=== PATIENT | female | born 1980 | race Caucasian/White ===

== ENCOUNTER → 2019-10-24 13:58 | Outpatient (BNVA) | payer MEDICAID, SELFPAY | PROVIDERS: Family Provider Family Medicine; PCP Family Medicine; Visit Provider Family Medicine | DX: E10.9 Type 1 diabetes mellitus without complications (principal); I10 Essential (primary) hypertension; K21.9 Gastro-esophageal reflux disease without esophagitis; I49.9 Cardiac arrhythmia, unspecified; J30.2 Other seasonal allergic rhinitis; R11.0 Nausea | CPT/HCPCS: 80048; 83036 ==

== ENCOUNTER → 2020-03-18 11:00 | Outpatient (BNVA) | payer MEDICAID, SELFPAY | PROVIDERS: Family Provider Family Medicine; PCP Family Medicine; Visit Provider Nurse Practitioner Family | DX: E11.65 Type 2 diabetes mellitus with hyperglycemia (principal); Z72.0 Tobacco use; H60.392 Other infective otitis externa, left ear; L50.9 Urticaria, unspecified | CPT/HCPCS: 80048; 80061; 83036 ==

== ENCOUNTER 2021-03-23 07:24 | Inpatient (IN) | payer MEDICAID, SELFPAY ==
[2021-03-23] VITALS (44 sets, daily range): BP systolic 100–168; BP diastolic 49–77; PULSE 66–97; RESP 9–41; TEMP 37.1–37.4; O2SAT 65–100; BMI 45.9
--- NOTE | 2021-03-23 07:33 | ECG_ITS ---
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 Measurements Intervals [place] Rate: 96 P: 43 AK: 153 QRS: -4 QRSD: 89 T: 20 QT: 348 QTc: 440 Interpretive Statements SINUS RHYTHM POSSIBLE LEFT ATRIAL ENLARGEMENT [-0.1mV P WAVE IN V1/V2] POSSIBLE RIGHT VENTRICULAR CONDUCTION DELAY [RSR (QR) IN V1/V2] No previous ECG available for comparison Electronically Signed On 03-23-2021 22:10:11 CDT by Lashonda Schumacher M.D. [id number]
--- NOTE | 2021-03-23 07:33 | XR_ITS ---
WS: [id number] XR chest 1V portable [id number] REASON FOR EXAM: Cough FINDINGS: The heart and the mediastinum are within normal limits. Diffuse interstitial and alveolar infiltrative changes in the central and lower lung simmons, more sev ere on the left. No pleural effusion identified. The bony thorax is intact. XR/XR chest 1V portable [id number] IMPRESSION: No prior chest films. Likely pneumonitis unknown chronicity.
--- NOTE | 2021-03-23 07:34 | W.ED.SOB ---
HPI - SOB/Dyspnea General: Chief Complaint: Shortness of Breath/Dyspnea Stated Complaint: cough, N/V, weak Time Seen by Provider: 03/23/21 07:28 History of Present Illness: HPI Narrative: This patient is a 40-year-old female who presents to the emergency department with acute shortness of breath. Patient also describes cough and fever for the past couple days. Patient does have a history of asthma. Patient states she has not had the Covid vaccine. Patient does not know if she has had any exposure. Patient states she does take her inhalers at home and does not wear oxygen at home. O2 sat on room air upon arrival was in the mid 60s. Patient placed on a nonrebreather. Pulse ox 87%. Will do medical evaluation treat as needed MD elicited complaint: shortness of breath and asthma attack Pertinent past history: asthma Onset (ago): minute(s) Timing: constant Severity: similar to previous episodes Exacerbating factors: nothing Relieving factors: nothing Associated symptoms: Deny abdominal pain, chest pain, extremity pain, fever(s), lightheadedness, nausea, palpitations or vomiting Review of Systems General: Reports: 10 or more systems reviewed and unremarkable except in HPI and below Const: Denies: fever(s), chills, body aches or fatigue Eyes: Denies: change in vision or blurry vision ENMT: Denies: throat pain, hoarseness or mouth pain Card: Denies: chest pain, palpitations, irregular heart rhythm, edema, swelling of feet/ankles or lightheadedness Resp: Reports: dyspnea and non-productive cough; Denies: productive cough, wheezing or pain on inspiration GI: Denies: abdominal pain, nausea or vomiting : Denies: flank pain, difficulty voiding, dysuria, urinary frequency, urinary urgency or urinary hesitancy Musc: Denies: neck pain, back pain, extremity pain, extremity swelling, joint pain, joint swelling, joint redness, joint warmth or limited range of motion Skin/Breast: Denies: rash, pruritus, erythema or skin tenderness Neuro: Denies: headache(s), numbness in extremities or weakness in extremities Psych: Denies: anxiety or depression PFS ED PFSH: Medical History (Updated 03/23/21 @ 10:21 by Toribio Arizmendi MD) Asthma Benign atrial arrhythmia Chronic nausea Related to gastroparesis and diabetes. Chronic pain syndrome Controlled diabetes mellitus type 1 without complications Essential (primary) hypertension Fibromyalgia GERD (gastroesophageal reflux disease) Seasonal allergies Small fiber neuropathy Spinal cord stimulator status PAIN PUMP Surgical History S/P appendectomy S/P section S/P tubal ligation Family History Other Diabetes Hypertension Social History Smoking and tobacco status: never smoked Alcohol intake: never Current gender identity: Female Physical Exam Const: COMMON NORMALS: no acute distress, average body habitus, patient oriented x3, no limitations, healthy appearing, alert and well nourished HENMT: COMMON NORMALS: normocephalic, atraumatic, hearing grossly normal bilaterally, external ears normal, EAC's normal, TM's normal bilaterally, Normal external nose present, Normal nasal mucous membranes and turbinates present, moist oral mucous membranes, oropharynx normal, dentition normal and gingiva normal HEAD & SCALP: normocephalic and atraumatic NOSE: Normal external nose present and Normal nasal mucous membranes and turbinates present EXTERNAL EAR: Yes external ears normal EXTERNAL AUDITORY CANAL: EAC's normal TYMPANIC MEMBRANE: TM's normal bilaterally Neck/C-Spine: COMMON NORMALS: full ROM, no lymphadenopathy, supple, no meningeal signs, no JVD, Thyroid normal and No carotid bruits THYROID: Thyroid normal Chest: COMMONS NORMALS: normal inspection of the chest, normal palpation of entire chest wall, normal inspection of the breasts and normal palpation of the breasts Breast/axilla inspection: Yes normal inspection of the breasts BREAST/AXILLA PALPATION: Yes normal palpation of the breasts Resp: COMMON NORMALS: clear to auscultation bilaterally and percussion normal EFFORT & INSPECTION: Yes tachypneic, Yes respiratory distress and Yes uses accessory muscles AUSCULTATION: clear to auscultation bilaterally PERCUSSION: percussion normal Cardio: COMMON NORMALS: no JVD, regular rate, regular rhythm, S1 normal heart sound present, S2 normal heart sound present, No gallops present (Cardio), No clicks present (Cardio), No murmurs present (Cardio), No rub (Cardio) and Peripheral pulses 2+ throughout RATE: regular rate RHYTHM: regular rhythm HEART SOUNDS: S1 normal heart sound present and S2 normal heart sound present PERIPHERAL PULSES: Peripheral pulses 2+ throughout GI: COMMON NORMALS: Normal to inspection, nondistended, normoactive bowel sounds present, Soft to palpation, non-tender, No hepatosplenomegaly present, no masses and no bruits PALPATION: Yes Soft to palpation and Yes No hepatosplenomegaly present Back/Pelvis: COMMON NORMALS: thoracic and lumbar spine normal to inspection, no thoracic nor lumbar tenderness, thoraco-lumbar ROM normal and straight leg raise negative bilaterally Extremity: COMMON NORMALS: normal to inspection, full ROM, capillary refill normal, no joint enlargement, no clubbing, cyanosis or edema, no calf tenderness and no pedal edema Neuro: COMMON NORMALS: patient oriented x3 SENSORIUM/ORIENTATION: Yes alert MENINGEAL SIGNS: Yes no meningeal signs Course Reevaluation(s): Reevaluation #1: I did discuss at length with patient about findings concerning for possible Covid pneumonia. Covid test negative in the emergency department will send out for [facility] PCR. Patient is agreeable to being admitted to the hospital due to the requirements of high flow oxygen. Time: 10:19 Consultations: Consultation #1: I did discuss at length with Dr. Noble. We did review the patient's chart. He request the patient be given and read the severe monoclonal antibody treatment. He agrees with [facility] PCR for Covid. Vital Signs: Vital signs: Vital Signs Temperature 99.1 F 03/23/21 09:21 Pulse Rate 91 03/23/21 09:21 Respiratory Rate 24 H 03/23/21 09:21 Blood Pressure 133/71 03/23/21 09:21 Pulse Oximetry 93 03/23/21 09:21 MDM - SOB/Dyspnea MDM Narrative: Medical decision making narrative: This patient is a 40-year-old female who presents to the emergency department with acute shortness of breath. Patient also describes cough and fever for the past couple days. Patient does have a history of asthma. Patient states she has not had the Covid vaccine. Patient does not know if she has had any exposure. Patient states she does take her inhalers at home and does not wear oxygen at home. O2 sat on room air upon arrival was in the mid 60s. Patient placed on a nonrebreather. Pulse ox 87%. Will do medical evaluation treat as needed I did discuss at length with patient about findings concerning for possible Covid pneumonia. Covid test negative in the emergency department will send out for [facility] PCR. Patient is agreeable to being admitted to the hospital due to the requirements of high flow oxygen. I did discuss at length with Dr. Noble. We did review the patient's chart. He request the patient be given and read the severe monoclonal antibody treatment. He agrees with [facility] PCR for Covid. Medical Records: Attestation: I reviewed the patient's medical records. Lab Data: Attestation: I reviewed the patient's lab results. Labs: Lab Results 03/23/21 03/23/21 03/23/21 Range/Units 07:40 07:43 07:43 WBC 6.2 (4.0-10.0) 10^3/ uL RBC 5.66 H (4.1-5.3) 10^6/u L Hgb 14.2 (11.5-15.3) g/dL Hct 46.0 (37.0-47.0) % MCV 81.3 (81-99) fL MCH 25.1 L (28.0-34.0) pg MCHC 30.9 (30.0-36.0) g/dL RDW 17.6 H (12.1-15.1) % Plt Count 210 (130-400) 10^3/c mm MPV 11.5 H (7.4-10.4) fL Neut % (Auto) 72.9 % Lymph % (Auto) 17.4 % Fajardo % (Auto) 8.4 % Eos % (Auto) 0.0 % Baso % (Auto) 0.2 % Neut # (Auto) 4.51 (1.8-7.7) 10^3/u L Lymph # (Auto) 1.1 (0.8-4.8) 10^3/u L Fajardo # (Auto) 0.5 (0.2-0.9) 10^3/u L Eos # (Auto) 0.0 (0.0-0.8) 10^3/u L Baso # (Auto) 0.0 (0.0-0.1) 10^3/u L Nucleated RBC % (a uto) 0 % Nucleated RBCs # 0.0 /100WBC PT 13.40 (12.1-14.9) SECO NDS INR 0.99 (0.8-1.2) APTT 34.2 (23.9-36.7) SECO NDS D-Dimer 0.89 H (0-0.59) ug/mIFE U Specimen Type Arterial Sample Site Radial, left ABG pH 7.42 (7.35-7.45) ABG pCO2 36.5 (35-45) mmHg ABG pO2 65.2 L (80.0-100.0) mmH g ABG HCO3 23.4 (22-26) mmol/L ABG O2 Saturation 94.1 ABG Base Excess -0.7 (-2.0-2.0) mmol/ L Alvin Test Pos A-a O2 Gradient 78.2 H (5-10) mmHg Hematocrit 43.2 (37-47) % Hgb O2 Saturation 92.9 L (95-100) % Carboxyhemoglobin 1.2 (0.4-20.1) %THgb Methemoglobin 0.1 L (0.4-1.5) % Total Hemoglobin 14.1 (12-16) g/dL Sodium 133.0 (131-143) mmol/L Potassium 4.3 (3.5-5.0) mmol/L Glucose 364.0 H (70-115) mg/dL Ionized Calcium 1.1 (1.1-1.4) mmol/L O2 Delivery Device Nrb O2 Liters/Min 15.0 % FiO2 100.0 % Painting Worker ID Gd Chloride (98-107) mmol/L Carbon Dioxide (22-29) mmol/L Anion Gap (5-19) BUN (6-20) mg/dL Creatinine (0.5-0.9) mg/dL GFR Calculation (90-130) mL/min Calculated Osmolal ity (285-295) mOsm/k g Lactic Acid (0.5-2.2) mmol/L Calcium (8.5-10.5) mg/dL Total Bilirubin (0.15-1.2) mg/dL AST (0-32) U/L ALT (0-33) U/L Alkaline Phosphata se (35-105) IU/L NT-Pro-B Natriuret Pep (0-125) pg/mL Total Protein (6.6-8.7) g/dL Albumin (3.5-5.2) g/dL Globulin (1.3-4.6) g/dL SARS-CoV-2 Ag (Rap id) (Negative) 03/23/21 03/23/21 03/23/21 Range/Units 07:43 07:43 07:51 WBC (4.0-10.0) 10^3/ uL RBC (4.1-5.3) 10^6/u L Hgb (11.5-15.3) g/dL Hct (37.0-47.0) % MCV (81-99) fL MCH (28.0-34.0) pg MCHC (30.0-36.0) g/dL RDW (12.1-15.1) % Plt Count (130-400) 10^3/c mm MPV (7.4-10.4) fL Neut % (Auto) % Lymph % (Auto) % Fajardo % (Auto) % Eos % (Auto) % Baso % (Auto) % Neut # (Auto) (1.8-7.7) 10^3/u L Lymph # (Auto) (0.8-4.8) 10^3/u L Fajardo # (Auto) (0.2-0.9) 10^3/u L Eos # (Auto) (0.0-0.8) 10^3/u L Baso # (Auto) (0.0-0.1) 10^3/u L Nucleated RBC % (a uto) % Nucleated RBCs # /100WBC PT (12.1-14.9) SECO NDS INR (0.8-1.2) APTT (23.9-36.7) SECO NDS D-Dimer (0-0.59) ug/mIFE U Specimen Type Sample Site ABG pH (7.35-7.45) ABG pCO2 (35-45) mmHg ABG pO2 (80.0-100.0) mmH g ABG HCO3 (22-26) mmol/L ABG O2 Saturation ABG Base Excess (-2.0-2.0) mmol/ L Alvin Test A-a O2 Gradient (5-10) mmHg Hematocrit (37-47) % Hgb O2 Saturation (95-100) % Carboxyhemoglobin (0.4-20.1) %THgb Methemoglobin (0.4-1.5) % Total Hemoglobin (12-16) g/dL Sodium 131 L (131-143) mmol/L Potassium 4.5 (3.5-5.0) mmol/L Glucose 352 H (70-115) mg/dL Ionized Calcium (1.1-1.4) mmol/L O2 Delivery Device O2 Liters/Min % FiO2 % Painting Worker ID Chloride 93 L (98-107) mmol/L Carbon Dioxide 23 (22-29) mmol/L Anion Gap 19.5 H (5-19) BUN 12 (6-20) mg/dL Creatinine 0.9 (0.5-0.9) mg/dL GFR Calculation 69.3 L (90-130) mL/min Calculated Osmolal ity 286 (285-295) mOsm/k g Lactic Acid 2.0 (0.5-2.2) mmol/L Calcium 8.3 L (8.5-10.5) mg/dL Total Bilirubin 0.5 (0.15-1.2) mg/dL AST 65 H (0-32) U/L ALT 48 H (0-33) U/L Alkaline Phosphata se 229 H (35-105) IU/L NT-Pro-B Natriuret Pep 53 (0-125) pg/mL Total Protein 7.2 (6.6-8.7) g/dL Albumin 3.4 L (3.5-5.2) g/dL Globulin 3.8 (1.3-4.6) g/dL SARS-CoV-2 Ag (Rap id) Negative (Negative) Imaging Data^: CXR: Attestation: I personally reviewed and interpreted this imaging study as follows: Radiologist's impression: IMPRESSION: No prior chest films. Likely pneumonitis unknown chronicity. EKG Data^: EKG 1: Attestation: I personally reviewed and interpreted this EKG as follows: EKG Interpretation Date: 03/23/21 EKG interpretation time: 08:38 Prior EKG tracings: not available for review Interpretation: Sinus rhythm with left atrial enlargement. Nonspecific EKG heart rate 96 Discharge Plan Discharge Patient Disposition: Admitted As Inpatient Clinical Impression: Acute dyspnea, Asthma with exacerbation Condition: Stable Prescriptions: No Action aspirin 81 mg tablet,delayed release (DR/EC) 81 mg PO DAILY RF: 0 ondansetron HCl [Zofran] 8 mg tablet 8 mg PO Q8H 30 Days Qty: 60 RF: 5 albuterol sulfate [ProAir HFA] 90 mcg/actuation HFA aerosol inhaler 1 puff INHALATION QID PRN (Reason: shortness of breath or wheezing) 30 Days Qty: 18 RF: 5 morphine in 0.9 % sodium chlor 1 mg/mL prefilled pump reservoir 1.43 mg SUBCUT DAILY RF: 0 (DME) blood-glucose meter [Blood Glucose Monitoring] Kit See Rx Instructions .ROUTE .MEDSUPPLY Qty: 1 RF: 0 (DME) Blood Glucose Test Strip See Rx Instructions .ROUTE .MEDSUPPLY Qty: 100 RF: 1 prednisone 20 mg tablet 40 mg PO DAILY 5 Days Qty: 10 RF: 0 Levemir FlexTouch U-100 Insuln 100 unit/mL (3 mL) insulin pen 120 unit SUBCUT BID 30 Days Qty: 75 RF: 3 doxycycline monohydrate 100 mg capsule 100 mg PO BID 7 Days Qty: 14 RF: 0 insulin aspart U-100 [Novolog Flexpen U-100 Insulin] 100 unit/mL (3 mL) insulin pen See Rx Instructions SUBCUT .COMPLEX MDD 210 Qty: 90 RF: 2 omeprazole 20 mg capsule,delayed release(DR/EC) See Rx Instructions .ROUTE .COMPLEX Qty: 30 RF: 0 lisinopril 40 mg tablet See Rx Instructions .ROUTE .COMPLEX Qty: 30 RF: 0 atenolol 25 mg tablet See Rx Instructions .ROUTE .COMPLEX Qty: 30 RF: 0 cetirizine 10 mg tablet See Rx Instructions .ROUTE .COMPLEX Qty: 30 RF: 0 atorvastatin 20 mg tablet See Rx Instructions .ROUTE .COMPLEX Qty: 30 RF: 0 (DME) Easy Touch Pen Needle 30 gauge x 5/16 needle See Rx Instructions .ROUTE .MEDSUPPLY Qty: 100 RF: 11 Referrals: Sujatha Giles MD [Primary Care Provider] - Coding Level of Care Code ED Educational Technology Specialist for Chg Fwd Exam Comprehensive
[2021-03-23] MEDS: albuterol 8 gm MDI 2 PUFF INHALATION (07:41)
[2021-03-23] MEDS: dexamethasone 10 mg/mL INJ IM ×2 (07:52→11:12)
[2021-03-23 07:57] LABS: ABG PCO2 36.5 mmHg (35-45); ABG PH Result 7.42 (7.35-7.45); Alveolar-Arterial Oxygen Gradi 78.2 mmHg (5-10); Arterial Blood Gas Hematocrit 43.2 % (37-47); Base Excess ABG -0.7 mmol/L (-2.0-2.0); Blood Gas Allen Test Pos; Blood Gas Operator Identificat GD; Blood Gas Sample Site Radial, left; Blood Gas Sample Type Arterial; Carboxyhemoglobin 1.2 %THgb (0.4-20.1); HCO3 ABG 23.4 mmol/L (22-26); HGB O2 Sat 92.9 % (95-100); Ionized Calcium Level - ABG 1.1 mmol/L (1.1-1.4); Methemoglobin 0.1 % (0.4-1.5); Oxygen Device NRB; Oxygen Saturation ABG 94.1; PO2 ABG 65.2 mmHg (80.0-100.0); Potassium Level - ABG 4.3 mmol/L (3.5-5.0); Total Hemoglobin 14.1 g/dL (12-16)
[2021-03-23 07:59] LABS: Basophils % 0.2 %; Hemoglobin 14.2 g/dL (11.5-15.3); Lymphocytes # 1.1 10^3/uL (0.8-4.8); Lymphocytes % 17.4 %; Mean Corpuscular HGB Conc 30.9 g/dL (30.0-36.0); Mean Corpuscular Hemoglobin 25.1 pg (28.0-34.0); Mean Corpuscular Volume 81.3 fL (81-99); Mean Platelet Volume 11.5 fL (7.4-10.4); Monocytes # 0.5 10^3/uL (0.2-0.9); Monocytes % 8.4 %; Neutrophils # 4.51 10^3/uL (1.8-7.7); Neutrophils % 72.9 %; Nucleated Red Blood Cells % 0 %; Platelet Count 210 10^3/cmm (130-400); Red Blood Count 5.66 10^6/uL (4.1-5.3); Red Cell Distribution Width 17.6 % (12.1-15.1); White Blood Count 6.2 10^3/uL (4.0-10.0)
[2021-03-23 08:10] LABS: INR 0.99 (0.8-1.2)
[2021-03-23 08:11] LABS: Partial Thromboplastin Time 34.2 SECONDS (23.9-36.7)
[2021-03-23 08:13] LABS: D Dimer 0.89 ug/mIFEU (0-0.59)
[2021-03-23 08:27] LABS: Alanine Aminotransferase 48 U/L (0-33); Albumin Level 3.4 g/dL (3.5-5.2); Alkaline Phosphatase 229 IU/L (35-105); Anion Gap 19.5 (5-19); Aspartate Amino Transferase 65 U/L (0-32); Blood Urea Nitrogen 12 mg/dL (6-20); Calcium 8.3 mg/dL (8.5-10.5); Carbon Dioxide 23 mmol/L (22-29); Chloride 93 mmol/L (98-107); Globulin 3.8 g/dL (1.3-4.6); Glomerular Filtration Rate 69.3 mL/min (90-130); Glucose 352 mg/dL (65-115); NT Pro B Type Natriuretic Pept 53 pg/mL (0-125); Osmolality Calculated 286 mOsm/kg (285-295); Potassium 4.5 mmol/L (3.5-5.1); Sodium 131 mmol/L (136-145); Total Bilirubin 0.5 mg/dL (0.15-1.2); Total Protein 7.2 g/dL (6.6-8.7)
[2021-03-23 08:30] LABS: SARS Covid-2 Antigen Negative (Negative)
[2021-03-23] MEDS: insulin regular-human 100 units/1 mL 10 UNIT IVP (11:09)
[2021-03-23] MEDS: LORazepam 2 mg/mL INJ 1 mL 0.5 MG IVP (11:30)
[2021-03-23] MEDS: ondansetron 2 mg/ML SDV 2 mL 4 MG IVP (11:31)
[2021-03-23 12:25] LABS: Estmated Average Glucose 324; Hemoglobin A1C 12.9 % (4.0-6.0)
--- NOTE | 2021-03-23 12:25 | CT_ITS ---
WS: [id number] CTA OF THE CHEST WITH PULMONARY EMBOLISM PROTOCOL TECHNIQUE: High-resolution contrast enhanced CTA of the chest with coronal and sagittal reformatted i mages with pulmonary embolism protocol. MIP images are also reviewed. CLINICAL INFORMATION: dysnpea COMPARISON: None. DLP: 867.[address] scans at [facility] use at least one of these dose optimization techniques: automat ed exposure control; mA and/or kV adjustment per patient size (includes targeted exams where dose is matched to clinical indication); or iterative reconstruction. FINDINGS: Proximal main pulmonary arteries are normal. Segmental and subsegmental pulmonary arteries not well e valuated due to breathing artifact and body habitus. No proximal pulmonary emboli. Diffuse hazy bilateral groundglass infiltrates compatible with COVID 19 pneumonia. No focal consolida tion or pleural fluid. Normal caliber thoracic aorta. No mediastinal or hilar lymphadenopathy. No axi llary lymphadenopathy. Adrenal glands are normal. Dorsal spinal stimulator.Partially evaluated diffuse heterogeneity through out the right hepatic lobe. This is indeterminant and recommend CT abdomen pelvis for further evaluat ion. Metastatic disease not excluded. CT/CT angio chest PE protcl [id number] IMPRESSION: 1. No evidence of pulmonary embolus considering limitations. Distal pulmonary arteries not well evaluated due to breathing artifact and body habitus. 2. Shallow inspiration. Diffuse hazy bilateral groundglass infiltrates compati ble with COVID19 pneumonia. 3. No mediastinal or hilar lymphadenopathy. 4. Partially evaluated diffuse heterogeneity throughout the right hepatic lobe . This is indeterminant and recommend contrast-enhanced CT abdomen pelvis or ul trasound in further evaluation. Metastatic disease not excluded. Notified Isrrael Noble MD at 03/23/2021 4:12 PM.
[2021-03-23 12:26] LABS: Procalcitonin 0.41 ng/mL (0-0.5); Thyroid Stimulating Hormone 0.71 uIU/mL (0.27-4.20)
[2021-03-23 12:30] LABS: Hepatitis A Antibody IgM Non-Reactive (Nonreactive); Hepatitis B Core IgM Non-Reactive (Nonreactive); Hepatitis B Surface Antigen Non-Reactive (Nonreactive); Hepatitis C Virus Antibody Non-Reactive (Nonreactive)
[2021-03-23] MEDS: remdesivir 200 MG in sodium chloride 0.9% (100 ml) 100 ML 100 MG IV (12:33)
--- NOTE | 2021-03-23 12:33 | P.HP_ITS ---
Providers/Chief Complaint Primary Care Provider: Sujatha Gilse MD Chief Complaint: cough, N/V, weak History of Present Illness Keily Foley is a 40 year old female presenting to the emergency department with vomiting, nausea, loose stool and significant shortness of breath. She states she has been sick about a week, but very short of breath in the last 2 days. Cough is for the most part nonproductive but she will occasionally have some streaks of blood. Has had fever at home. Both family members sick with cold symptoms but have gotten better. Nobody has been tested for Covid. She is not vaccinated. She has difficulty giving a full history and physical secondary to shortness of breath even on high flow oxygen. In the emergency department she received dexamethasone. There was some confusion about monoclonal antibody therapy but this was discontinued prior to any significant dose being infused. Remdesivir was started. Review of Systems General: Reports: 10 or more systems reviewed and unremarkable except in HPI and below Const: Reports: fever(s), body aches and fatigue Eyes: Denies: change in vision ENMT: Denies: throat pain Card: Denies: chest pain Resp: Reports: dyspnea and productive cough GI: Reports: nausea and vomiting; Denies: hematemesis or hematochezia : Denies: flank pain Musc: Denies: neck pain Skin/Breast: Denies: rash Neuro: Denies: headache(s) Psych: Reports: anxiety; Denies: depression Endo: Denies: polyuria Jason/Lymph: Denies: easy bruising All/Imm: Denies: urticaria Medications/Allergies Home Medications Medication Instructions Recorded Confirmed Last Taken Type aspirin 81 mg tablet,delayed 81 mg PO BEDTIME tab 09/11/19 03/23/21 03/21/21 History release insulin aspart U-100 100 unit/mL See Rx Instructions SUBCUT 12/10/19 03/23/21 Unknown Rx (3 mL) subcutaneous pen .COMPLEX #90 ml MDD 210 blood sugar diagnostic #100 each 03/18/20 03/23/21 Unknown Rx blood-glucose meter #1 each 03/18/20 03/23/21 Unknown Rx insulin detemir U-100 100 unit/mL 120 unit SUBCUT BID 30 Days #75 ml 03/18/20 03/23/21 Unknown Rx (3 mL) subcutaneous pen pen needle, diabetic 30 gauge x #100 each 11/29/20 03/23/21 Unknown Rx /16 Bupivacaine 10.66mg/Ml See Rx Instructions .ROUTE .COMPLEX 03/23/21 03/23/21 Unknown History Morphine 8mg/8ml Con See Rx Instructions .ROUTE .COMPLEX 03/23/21 03/23/21 Unknown History ProAir HFA 1 puff INHALATION Q6H PRN 03/23/21 03/23/21 Unknown History acetaminophen [Tylenol Extra 1,000 mg PO PRN 03/23/21 03/23/21 Unknown History Strength] atenolol 25 mg PO QAM 03/23/21 03/23/21 03/22/21 History atorvastatin 20 mg PO BEDTIME 03/23/21 03/23/21 Unknown History baclofen 10 mg PO TID 03/23/21 03/23/21 Unknown History cetirizine 10 mg PO DAILY 03/23/21 03/23/21 Unknown History duloxetine 40 mg PO DAILY 03/23/21 03/23/21 Unknown History fluticasone propionate [Flovent 2 puff INHALATION Q12H 03/23/21 03/23/21 Unknown History HFA] furosemide 20 mg PO DAILY PRN 03/23/21 03/23/21 Unknown History ibuprofen 600 mg PO PRN 03/23/21 03/23/21 Unknown History lisinopril 40 mg PO BEDTIME 03/23/21 03/23/21 Unknown History omeprazole 40 mg PO BEDTIME 03/23/21 03/23/21 Unknown History ondansetron HCl 8 mg PO Q8H PRN 03/23/21 03/23/21 03/23/21 04:30 History polyethylene glycol 3350 17 g PO DAILY PRN 03/23/21 03/23/21 Unknown History Allergies Allergy/AdvReac Type Severity Reaction Status Date / Time sulfamethoxazole Allergy Unknown Unknown Verified 03/23/21 10:43 [From Bactrim] trimethoprim [From Bactrim] Allergy Unknown Unknown Verified 03/23/21 10:43 metformin AdvReac Mild diarrhea, Verified 03/23/21 10:43 vomiting PFSH Acute PFSH: Medical History (Updated 03/23/21 @ 12:41 by Isrrael Noble MD) Asthma Benign atrial arrhythmia Chronic nausea Related to gastroparesis and diabetes. Chronic pain syndrome Controlled diabetes mellitus type 1 without complications Depression Essential (primary) hypertension Fibromyalgia GERD (gastroesophageal reflux disease) Hyperlipidemia Seasonal allergies Small fiber neuropathy Spinal cord stimulator status PAIN PUMP Surgical History S/P appendectomy S/P section S/P tubal ligation Family History Other Diabetes Hypertension Social History Smoking and tobacco status: never smoked Alcohol intake: never Current gender identity: Female Vitals/I&O/Wt Last Vital Signs Temp 99.1 F 03/23/21 09:21 Pulse 86 03/23/21 11:33 Resp 22 H 03/23/21 11:33 BP 105/77 03/23/21 11:33 Pulse Ox 93 03/23/21 11:33 03/22/21 03/23/21 03/23/21 22:59 06:59 14:59 Intake Total 5 / 5 Balance 5 / 5 Weight last 48 hrs Weight 145.15 kg Physical Exam Narrative: EXAM NARRATIVE: General exam demonstrated white female, with at least moderate tachypnea on high flow oxygen who can say only about 2-3 word sentences without desaturating. HEENT: Atraumatic and normocephalic. Pupils equally round. Oropharynx clear. Neck is supple obese nontender with no obvious thyromegaly or lymphadenopathy Cardiovascular regular rate and rhythm without murmur, no S3 or S4 Lungs no wheezing. Scattered coarse breath sounds. Abdomen is soft, positive bowel sounds. No obvious organomegaly. Pain pump is felt is deferred Extremities no cyanosis clubbing or edema, cap refill brisk No rash Neuro no obvious focal deficits. Data : 03/23/21 07:43 03/23/21 07:43 Micro: Microbiology 03/23/21 07:50 Blood Culture - Preliminary Blood SPECIMEN COLLECTED 03/23/21 07:43 Blood Culture - Preliminary Blood SPECIMEN COLLECTED Other data: Dimer is elevated at 0.89 INR 0.99 ABG demonstrates a pH of 7.42, PCO2 of 36, PO2 of 65 on 100% nonrebreather AST 65 ALT 48, alk phos 229 Albumin 3.4 Rapid Covid negative, PCR pending Chest x-ray with scattered infiltrate consistent with COVID-19 pneumonia EKG demonstrates sinus rhythm, left axis deviation, biphasic P wave in lead I A&P Assessment and plan (1) Suspected COVID-19 virus infection: History, exam, and ancillary testing to date very consistent with COVID-19 pneumonia. Remdesivir Dexamethasone 6 mg IV every 24 hours Consideration of Tocilizumab. It may be until tomorrow afternoon the PCR will return. If any significant worsening may need to proceed with treatment of Tocilizumab despite not having confirmatory laboratory. Check CRP, CTA, bacterial antigen panel, MRSA PCR, BNP Empiric Zosyn Blood cultures Check procalcitonin High flow oxygen wean as tolerated Place Matthews. She desaturates with talking alone. Status: Acute (2) Acute respiratory failure: Status: Acute (3) Asthma: Status: Chronic Qualifiers: Asthma severity: mild Asthma persistence: intermittent Asthma complication type: uncomplicated Qualified Code(s): J45.20 - Mild intermittent asthma, uncomplicated Additional A&P Information Diabetes mellitus. Initiate Levemir 100 units twice daily, aggressive sliding scale insulin and monitor closely. Obesity. Check TSH Transaminitis. Likely secondary to Covid or fatty liver but will check hepatitis panel Chronic pain syndrome. Has pain pump with morphine and bupivacaine. This will continue currently. Multiple other medical problems as outlined in the medical history Full code Lovenox for DVT prophylaxis Attestations Medical Necessity Statement*: Will need greater than 2 midnight stay for severe viral pneumonia requiring high flow oxygen Critical Care Time: Critical Care Time (min): 69 Other Attestations: The high probability of a clinically significant, sudden or life threatening deterioration of the patient's [respiratory, endocrine] system(s) required my full and direct attention, intervention and personal management. The critical care time is as shown. This time is in addition to time spent performing any reported procedures but includes the following: [x] Data and vital sign review and interpretation [x] Patient assessment, examination and intervention [x] Documentation [x] Medication orders and management Coding Level of Care Code Acute Child Watch Attendant for Katarzyna Fwdee dee Diagnoses Suspected COVID-19 virus infection Z20.822 Acute respiratory failure J96.00 Asthma J45.20 Asthma severity: mild Asthma persistence: intermittent Asthma complication type: uncomplicated
[2021-03-23 12:39] LABS: C Reactive Protein 155.1 mg/L (0.0-4.9)
--- NOTE | 2021-03-23 14:15 | PC.NURSE ---
pt off unit to CT
[2021-03-23] MEDS: iohexol 350 mg/mL 100 mL Btl IV (14:20)
[2021-03-23] MEDS: piperacillin-tazobactam 3.375 GM in sodium chloride 0.9% (plus) 50 ML IV ×2 (14:57→20:53)
--- NOTE | 2021-03-23 16:00 | PC.NURSE ---
Pt arrived to ICU from Emergency dept. She is short of breath. She stated she was exhausted. Pt able to self transfer to bed with minimal assistance. Pt assisted out of her personal clothing into gown. Orientation to room, call light and TV remove done. Pt stated she had a pain pump in her mid left abdomen. She does not want any injections on the left side.
[2021-03-23 17:35] LABS: Glucose Point of Care 405 mg/dL (70-110)
[2021-03-23 18:06] LABS: Glucose Urine UA 4+ (Normal); Protein Urine Neg (Negative); Urine Appearance Cloudy (CLEAR); Urine Color Yellow (Yellow); pH Urine 5 (5-7)
[2021-03-23 18:07] LABS: Add Urine Culture? Yes; Bacteria Urine 1+ /hpf; Bilirubin Urine Neg (Negative); Blood Urine Neg (Negative); Ketones Urine 2+ (Negative); Leukocyte Esterase Urine Negative (Negative); Nitrate Urine Positive (Negative); Squamous Epithelial Cell Urine 0-4 /hpf (0-5); Urobilinogen Urine Norm (Negative)
[2021-03-23] MEDS: FUROsemide 10 mg/mL SDV 2mL 20 MG IVP (18:31)
[2021-03-23] MEDS: enoxaparin 40 mg/0.4 mL Syringe SUBCUT (18:32)
--- NOTE | 2021-03-23 19:15 | PC.NURSE ---
Addendum entered by Loreta Suazo RN 03/23/21 19:54: Report included SCD pumps not doen yet and pt still needed allergy bracelet. Original Note: Report given to CARLOZ LOZA.
--- NOTE | 2021-03-23 19:45 | PC.NURSE ---
Shift summary:Pt arrived to ICU towards the end of the shift. Pt resting in bed with eyes closed. She was nodding off during her evening meal today. She is on heated high flow 60L and 94%. Matthews cath inserted after her arrival to ICu. MRSA swab and a urine sample collected. Blood sugar checked, it was high 405mg/dl. Levimer and reg insulin administered. Tocilizumab and Lovenox and Lasix given, Zosyn finished. Urine ouput more than adequate, 1000ml . Per pt her and her share a phone. Pt and informed that arrangements could be made once a day for her to use portable phone.
[2021-03-23 20:25] LABS: Glucose Point of Care 468 mg/dL (70-110)
[2021-03-23] MEDS: aspirin 81 mg EC Tablet PO (20:52)
[2021-03-23] MEDS: atorvastatin 40 mg Tablet 20 MG PO (20:52)
[2021-03-23] MEDS: baclofen 10 mg Tablet PO (20:53)
[2021-03-23] MEDS: pantoprazole DR 40 mg Tablet PO (20:53)
[2021-03-23 21:34] LABS: Glucose Point of Care 466 mg/dL (70-110)
[2021-03-23 21:43] LABS: Basophils % 0.2 %; Hematocrit 44.9 % (37.0-47.0); Hemoglobin 13.5 g/dL (11.5-15.3); Lymphocytes % 21.2 %; Mean Corpuscular HGB Conc 30.1 g/dL (30.0-36.0); Mean Corpuscular Hemoglobin 25.2 pg (28.0-34.0); Mean Corpuscular Volume 83.8 fL (81-99); Mean Platelet Volume 11.2 fL (7.4-10.4); Monocytes # 0.3 10^3/uL (0.2-0.9); Monocytes % 6.1 %; Neutrophils # 3.51 10^3/uL (1.8-7.7); Neutrophils % 71.5 %; Nucleated Red Blood Cells % 0 %; Platelet Count 203 10^3/cmm (130-400); Red Blood Count 5.36 10^6/uL (4.1-5.3); Red Cell Distribution Width 17.5 % (12.1-15.1); White Blood Count 4.9 10^3/uL (4.0-10.0)
[2021-03-23 22:05] LABS: Blood Urea Nitrogen 19 mg/dL (6-20); Calcium 7.9 mg/dL (8.5-10.5); Carbon Dioxide 15 mmol/L (22-29); Chloride 94 mmol/L (98-107); Glomerular Filtration Rate 79.4 mL/min (90-130); Glucose 485 mg/dL (65-115); Osmolality Calculated 294 mOsm/kg (285-295); Sodium 130 mmol/L (136-145)
[2021-03-23 22:13] LABS: Slide Review Slide Review Perform
[2021-03-23] MEDS: albuterol 8 gm MDI 1 PUFF INHALATION (22:42)
[2021-03-23] MEDS: insulin regular-human 250 UNIT in sodium chloride 0.9% 250 ML 11.18 UNIT IV (23:49)
[2021-03-23] MEDS: sodium chloride 0.9% 1,000 ML 200 ML IV (23:53)
[2021-03-24] VITALS (80 sets, daily range): BP systolic 92–142; BP diastolic 45–88; PULSE 18–82; RESP 13–95; TEMP 36.4–37.1; O2SAT 81–100; BMI 45.9
[2021-03-24 02:05] LABS: Glucose Point of Care 375 mg/dL (70-110)
[2021-03-24 02:05] LABS: Glucose Point of Care 406 mg/dL (70-110)
[2021-03-24 02:05] LABS: Glucose Point of Care 429 mg/dL (70-110)
[2021-03-24 02:36] LABS: Alanine Aminotransferase 38 U/L (0-33); Albumin Level 2.9 g/dL (3.5-5.2); Alkaline Phosphatase 188 IU/L (35-105); Anion Gap 21.5 (5-19); Aspartate Amino Transferase 46 U/L (0-32); Blood Urea Nitrogen 20 mg/dL (6-20); Calcium 8.1 mg/dL (8.5-10.5); Carbon Dioxide 19 mmol/L (22-29); Chloride 95 mmol/L (98-107); Globulin 4.1 g/dL (1.3-4.6); Glomerular Filtration Rate 61.4 mL/min (90-130); Glucose 415 mg/dL (65-115); Osmolality Calculated 292 mOsm/kg (285-295); Potassium 4.5 mmol/L (3.5-5.1); Sodium 131 mmol/L (136-145); Total Bilirubin 0.4 mg/dL (0.15-1.2)
[2021-03-24 03:08] LABS: Glucose Point of Care 353 mg/dL (70-110)
[2021-03-24 03:39] LABS: Glucose Point of Care 404 mg/dL (70-110)
[2021-03-24] MEDS: albuterol 8 gm MDI 1 PUFF INHALATION ×2 (03:46→20:41)
--- NOTE | 2021-03-24 04:00 | US_ITS ---
WS: [id number] ULTRASOUND ABDOMEN LIMITED CLINICAL INFORMATION: elevated LFT's, abnormal CT COMPARISON: CT March 23, 2021 FINDINGS: Technically difficult examination Liver Size: Enlarged Craniocaudal length: 21.2 cm. Echogenicity: Heterogeneous and dense Surface nodularity: None. Mass (size and location): Nonspecific echogenic lesion with hypoechoic halo measuring 2.8 x 2.5 x 2.8 cm Bile ducts Intrahepatic ducts: Normal. Common bile duct diameter: 0.6 cm. Gallbladder Normal. Gallstones: None. Gallbladder sludge: None. Gallbladder wall thickening: None. Pericholecystic fluid: None. Sonographic Davison sign: Absent. Pancreas Not well seen Right kidney: Normal. Hydronephrosis: None. Size: 11.8 cm x 6.4 cm x 5.8 cm. Abdominal aorta and IVC Visualized portions are normal. Ascites: None. US/US abdomen limited [id number] IMPRESSION: Technically difficult examination 1. Hepatomegaly with diffuse fatty infiltration. 2. Diffuse hepatic heterogeneity not well evaluated due to body habitus. Recom mend further evaluation with contrast-enhanced CT abdomen pelvis liver protocol . 3. Echogenic lesion measuring 2.8 x 2.5 x 2.8 cm with suspicious thin hypoecho ic halo. Differential considerations include cavernous hemangioma versus metast atic disease or liver neoplasm. Recommend further evaluation of the liver with contrast-enhanced CT abdomen pelvis with liver protocol. 4. Normal gallbladder and common bile duct. 5. No hydronephrosis in right kidney.
[2021-03-24 05:00] LABS: Glucose Point of Care 373 mg/dL (70-110)
[2021-03-24] MEDS: sodium chloride 0.9% 1,000 ML 200 ML IV (05:02)
[2021-03-24] MEDS: piperacillin-tazobactam 3.375 GM in sodium chloride 0.9% (plus) 50 ML IV ×3 (05:14→20:47)
[2021-03-24 06:10] LABS: Glucose Point of Care 280 mg/dL (70-110)
[2021-03-24 06:25] LABS: Basophils % 0.2 %; Hematocrit 43.7 % (37.0-47.0); Hemoglobin 13.5 g/dL (11.5-15.3); Lymphocytes # 1.1 10^3/uL (0.8-4.8); Lymphocytes % 18.5 %; Mean Corpuscular HGB Conc 30.9 g/dL (30.0-36.0); Mean Corpuscular Hemoglobin 25.4 pg (28.0-34.0); Mean Corpuscular Volume 82.3 fL (81-99); Mean Platelet Volume 11.3 fL (7.4-10.4); Monocytes # 0.4 10^3/uL (0.2-0.9); Monocytes % 6.9 %; Neutrophils # 4.24 10^3/uL (1.8-7.7); Neutrophils % 73.4 %; Nucleated Red Blood Cells % 0 %; Platelet Count 234 10^3/cmm (130-400); Red Blood Count 5.31 10^6/uL (4.1-5.3); Red Cell Distribution Width 17.3 % (12.1-15.1); White Blood Count 5.8 10^3/uL (4.0-10.0)
[2021-03-24] MEDS: atenolol 50 mg Tablet 25 MG PO (06:26)
[2021-03-24 06:43] LABS: Alanine Aminotransferase 37 U/L (0-33); Albumin Level 2.8 g/dL (3.5-5.2); Alkaline Phosphatase 187 IU/L (35-105); Aspartate Amino Transferase 43 U/L (0-32); Blood Urea Nitrogen 22 mg/dL (6-20); Carbon Dioxide 23 mmol/L (22-29); Chloride 99 mmol/L (98-107); Globulin 4.2 g/dL (1.3-4.6); Glomerular Filtration Rate 61.4 mL/min (90-130); Glucose 305 mg/dL (65-115); Magnesium 2.1 mg/dL (1.7-2.3); Osmolality Calculated 293 mOsm/kg (285-295); Sodium 134 mmol/L (136-145); Total Bilirubin 0.3 mg/dL (0.15-1.2)
[2021-03-24 06:50] LABS: Glucose Point of Care 248 mg/dL (70-110)
[2021-03-24 07:16] LABS: D Dimer 1.31 ug/mIFEU (0-0.59)
[2021-03-24 07:33] LABS: Slide Review Slide Review Perform
[2021-03-24 08:13] LABS: Glucose Point of Care 277 mg/dL (70-110)
[2021-03-24] MEDS: baclofen 10 mg Tablet PO ×3 (08:29→20:47)
[2021-03-24] MEDS: duloxetine 20 mg Capsule 40 MG PO (08:29)
[2021-03-24] MEDS: cetirizine 10 mg Tablet PO (08:29)
[2021-03-24] MEDS: dexamethasone 4 mg/mL INJ 6 MG IVP (08:29)
[2021-03-24 09:29] LABS: Glucose Point of Care 255 mg/dL (70-110)
--- NOTE | 2021-03-24 09:59 | PC.CHAP ---
Pastoral Care Encounter/Spiritual Assessment Type of Contact [] Declined parking lot signaler visit [] Patient/Family/Request visit [] Outpatient visit [] Follow-up visit [] Physician referral [] Code/Alert [x] Routine visit [] Staff referral [] Actively dying [] Patient sleeping [] Family support [] [] Out of room [] Palliative care [] [] Receiving care in room [] Pre-surgical visit [] Trauma [] Long length of stay [x] ICU visit [x] Other: isolated... patient prayed with me through door Relational/Emotional Strength [] Patient feels connected with others/family/visitors/staff [] Distress [] Loneliness/isolation [] Abandonment Spirituality of Patient [] Person of Barbara [] Attends Mandaen of their Barbara [] Believes in Prayer [] Reads Bible or Islam materials [] There are Spiritual issues to be addressed Architectural Superintendent 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 [x] Prayer [] Active listening [] Non-anxious presence [] Spiritual/emotional support [] Crisis/trauma care [] Spiritual counseling [] Bereavement support [] Provided bereavement packet [] Provided Bible/devotional materials [] Provided toy/stuffed animal, coloring book to patient or family member [] Provided Communion [] Anointing/Ewing [] Salvation [x] Completed spiritual assessment [] Other: Impact on Illness or Injury [] Angry [] Fearful [] Anxious [] Often cries [] Exhaustion [] Unable to work [] Unable to attend anabaptism [] Unable to walk/stand [] Unable to read [] Unable to drive [] Unable to eat/drink [] Unable to sleep [] Unable to be with family [] Patient intubated [] Other: Summary Time spent with patient
[2021-03-24 10:17] LABS: Glucose Point of Care 242 mg/dL (70-110)
[2021-03-24 11:39] LABS: Glucose Point of Care 277 mg/dL (70-110)
[2021-03-24] MEDS: ondansetron 2 mg/ML SDV 2 mL 4 MG IVP (13:29)
[2021-03-24 13:35] LABS: Alanine Aminotransferase 33 U/L (0-33); Albumin Level 2.9 g/dL (3.5-5.2); Alkaline Phosphatase 171 IU/L (35-105); Anion Gap 16.2 (5-19); Aspartate Amino Transferase 45 U/L (0-32); Blood Urea Nitrogen 26 mg/dL (6-20); Carbon Dioxide 25 mmol/L (22-29); Chloride 97 mmol/L (98-107); Globulin 4.2 g/dL (1.3-4.6); Glomerular Filtration Rate 79.4 mL/min (90-130); Glucose 334 mg/dL (65-115); Osmolality Calculated 294 mOsm/kg (285-295); Potassium 5.2 mmol/L (3.5-5.1); Sodium 133 mmol/L (136-145); Total Bilirubin 0.4 mg/dL (0.15-1.2); Total Protein 7.1 g/dL (6.6-8.7)
--- NOTE | 2021-03-24 14:23 | P.CONIM_ITS ---
Providers/Reason For Consult Consulting Physician/Specialty*: Alan Dey MD/ Pulmonary Critical Care Reason for Consult*: Acute hypoxic respiratory failure secondary to ARDS due to COVID-19 pneumonia Requesting Physician: Isrrael Noble MD Attending Physician: Isrrael Noble MD Primary Care Provider: Sujatha Giles MD History of Present Illness History of Present Illness Keily Foley is a 40 year old female with PMH asthma type 1 diabetes mellitus, depression, hypertension, fibromyalgia, GERD, hyperlipidemia presented to ED on 03/23/2021 with nausea, vomiting, loose stools and significant shortness of breath. Patient reported being sick for 1 week but her dyspnea was worse last 2 days. Also complained of nonproductive cough with some streaks of blood occasionally. Similar symptoms in family members but they got better. Patient is not vaccinated to Covid. She she was placed on high flow 60 L 90% and started on 5-day protocol remdesivir, and received dexamethasone 6 mg daily, and 1 dose Tocilizumab. Pulmonary critical care consult requested for acute hypoxic respiratory failure secondary to ARDS due to COVID-19 pneumonia requiring high flow oxygen. Patient seen at bedside today Breathing comfortably on 60 L 90% HFNC; saturating 92%-desaturates even with talking to low 80s Complaint high flow is making her breathing uncomfortable with too much of air Also reported that arrhythmia runs in her family, her brother with arrhythmia and her sister is also not doing good Labs and imaging reviewed Review of Systems General: Reports: 10 or more systems reviewed and unremarkable except in HPI and below Meds/Allergies Home Medications and Allergies Home Medications Medication Instructions Recorded Confirmed Last Taken Type aspirin 81 mg tablet,delayed 81 mg PO BEDTIME tab 09/11/19 03/23/21 03/21/21 History release insulin aspart U-100 100 unit/mL See Rx Instructions SUBCUT 12/10/19 03/23/21 Unknown Rx (3 mL) subcutaneous pen .COMPLEX #90 ml MDD 210 blood sugar diagnostic #100 each 03/18/20 03/23/21 Unknown Rx blood-glucose meter #1 each 03/18/20 03/23/21 Unknown Rx insulin detemir U-100 100 unit/mL 120 unit SUBCUT BID 30 Days #75 ml 03/18/20 03/23/21 Unknown Rx (3 mL) subcutaneous pen pen needle, diabetic 30 gauge x #100 each 11/29/20 03/23/21 Unknown Rx 5/16 Bupivacaine 10.66mg/Ml See Rx Instructions .ROUTE .COMPLEX 03/23/21 03/23/21 Unknown History Morphine 8mg/8ml Con See Rx Instructions .ROUTE .COMPLEX 03/23/21 03/23/21 Unknown History ProAir HFA 1 puff INHALATION Q6H PRN 03/23/21 03/23/21 Unknown History acetaminophen [Tylenol Extra 1,000 mg PO PRN 03/23/21 03/23/21 Unknown History Strength] atenolol 25 mg PO QAM 03/23/21 03/23/21 03/22/21 History atorvastatin 20 mg PO BEDTIME 03/23/21 03/23/21 Unknown History baclofen 10 mg PO TID 03/23/21 03/23/21 Unknown History cetirizine 10 mg PO DAILY 03/23/21 03/23/21 Unknown History duloxetine 40 mg PO DAILY 03/23/21 03/23/21 Unknown History fluticasone propionate [Flovent 2 puff INHALATION Q12H 03/23/21 03/23/21 Unknown History HFA] furosemide 20 mg PO DAILY PRN 03/23/21 03/23/21 Unknown History ibuprofen 600 mg PO PRN 03/23/21 03/23/21 Unknown History lisinopril 40 mg PO BEDTIME 03/23/21 03/23/21 Unknown History omeprazole 40 mg PO BEDTIME 03/23/21 03/23/21 Unknown History ondansetron HCl 8 mg PO Q8H PRN 03/23/21 03/23/21 03/23/21 04:30 History polyethylene glycol 3350 17 g PO DAILY PRN 03/23/21 03/23/21 Unknown History Allergies Allergy/AdvReac Type Severity Reaction Status Date / Time sulfamethoxazole Allergy Unknown Unknown Verified 03/23/21 10:43 [From Bactrim] trimethoprim [From Bactrim] Allergy Unknown Unknown Verified 03/23/21 10:43 metformin AdvReac Mild diarrhea, Verified 03/23/21 10:43 vomiting Current Medications Current Medications Generic Name Dose Route Start Last Admin Trade Name Freq PRN Reason Stop Dose Admin Albuterol Sulfate 1 puff 03/23/21 16:02 03/24/21 03:46 Albuterol 8 Gm Mdi INHALATION 1 puff Q6H.RESPIRATORY PRN Administration shortness of breath or wheezing Aspirin 81 mg 03/23/21 21:00 03/23/21 20:52 Aspirin 81 Mg Ec Tablet PO 81 mg BEDTIME TOÑITO Administration Atenolol 25 mg 03/24/21 06:00 03/24/21 06:26 Atenolol 50 Mg Tablet PO 25 mg QAM TOÑITO Administration Atorvastatin Calcium 20 mg 03/23/21 21:00 03/23/21 20:52 Atorvastatin 40 Mg Tablet PO 20 mg BEDTIME TOÑTIO Administration Baclofen 10 mg 03/23/21 21:00 03/24/21 08:29 Baclofen 10 Mg Tablet PO 10 mg TID TOÑITO Administration Cetirizine HCl 10 mg 03/24/21 09:00 03/24/21 08:29 Cetirizine 10 Mg Tablet PO 10 mg DAILY TOÑITO Administration Dexamethasone 6 mg 03/24/21 08:00 03/24/21 08:29 Dexamethasone 4 Mg/Ml Inj IVP 6 mg Q24H TOÑITO Administration Duloxetine HCl 40 mg 03/24/21 09:00 03/24/21 08:29 Duloxetine 20 Mg Capsule PO 40 mg DAILY TOÑITO Administration Enoxaparin Sodium 40 mg 03/23/21 18:00 03/23/21 18:32 Enoxaparin 40 Mg/0.4 Ml Syringe SUBCUT 40 mg Q24H TOÑITO Administration Fluticasone Propionate 2 puff 03/23/21 20:00 03/23/21 22:42 Fluticasone 220mcg Inhaler 12gm INHALATION 2 puff BID.RESPIRATORY TOÑITO Administration Piperacillin Sod/Tazobactam 50 mls @ 12.5 mls/hr 03/23/21 12:30 03/24/21 11:50 Sod 3.375 gm/ Sodium Chloride IV 12.5 mls/hr Q8H TOÑITO Administration Insulin Human Regular 250 unit 252.5 mls @ 0 mls/hr 03/23/21 22:45 03/24/21 09:31 / Sodium Chloride IV 0 unit/hr .Q0M TOÑITO 0 mls/hr Titration Protocol Per Protocol Insulin Aspart 0 unit 03/23/21 18:00 03/24/21 11:49 Insulin Aspart 100 Unit/1 Ml SUBCUT 12 unit WM&BEDTIME TOÑITO Administration Protocol Insulin Aspart 30 unit 03/24/21 11:00 03/24/21 11:49 Insulin Aspart 100 Unit/1 Ml SUBCUT 30 unit TIDAC TOÑITO Administration Insulin Detemir 120 unit 03/24/21 09:30 03/24/21 09:31 Insulin Detemir 100 Units/1 Ml SUBCUT 120 unit BID@0900,2100 TOÑITO Administration Ondansetron HCl 4 mg 03/23/21 16:02 03/24/21 13:29 Ondansetron 2 Mg/Ml Sdv 2 Ml IVP 4 mg Q6H PRN Administration NAUSEA AND VOMITING Pantoprazole Sodium 40 mg 03/23/21 21:00 03/23/21 20:[address] 40 Mg Tablet PO 40 mg BEDTIME TOÑITO Administration PFSH Acute PFSH: Medical History Asthma Benign atrial arrhythmia Chronic nausea Related to gastroparesis and diabetes. Chronic pain syndrome Controlled diabetes mellitus type 1 without complications Depression Essential (primary) hypertension Fibromyalgia GERD (gastroesophageal reflux disease) Hyperlipidemia Seasonal allergies Small fiber neuropathy Spinal cord stimulator status PAIN PUMP Surgical History S/P appendectomy S/P section S/P tubal ligation Family History Other Diabetes Hypertension Social History Smoking and tobacco status: never smoked Alcohol intake: never Current gender identity: Female Vitals/I&O/Wt Last Vital Signs Temp 97.9 F 03/24/21 11:00 Pulse 70 03/24/21 14:00 Resp 21 H 03/24/21 14:00 BP 113/61 03/24/21 14:00 Pulse Ox 91 03/24/21 14:00 03/23/21 03/24/21 03/24/21 22:59 06:59 14:59 Intake Total 1150 / 1255 1166.287 / 2421.287 900.341 / 900.341 Output Total 1999 1100 / 3100 Balance -850 / -745 66.287 / -678.713 900.341 / 900.341 Weight last 48 hrs Weight 320 lb Weight 320 lb Physical Exam Narrative: EXAM NARRATIVE: General: alert, NAD HEENT: conj clear, EOMI, PERRL, mmm, Neck: supple, no meningismus Heme: no cervical LAP Pulmonary: Bibasilar crepitations Cardiovascular: rrr, nl s1s2, no mrg Abdomen: soft, nt, nd, no r/g, bs+ Extremities: pulses are 1+ pitting pedal edema, no c/c : no CVA tenderness Skin: intact, no rash MSK: no back or neck pain Neurologic: grossly intact Urinary Catheter Management^: Matthews: Cath Placed During This Visit: yes Reason for Continuing Indwelling Catheter: Accurate Measurement of Urinary Output in Critically Ill Patients Urinary Catheter Date of Insertion: 03/23/21 Urinary Catheter Time of Insertion: 16:47 Data Labs: Other Labs: Laboratory Results WBC 5.8 10^3/uL (4.0- 10.0) 03/24/21 06:08 RBC 5.31 10^6/uL (4.1 -5.3) H 03/24/21 06:08 Hgb 13.5 g/dL (11.5-1 5.3) 03/24/21 06:08 Hct 43.7 % (37.0-47.0 ) 03/24/21 06:08 MCV 82.3 fL (81-99) 03/24/21 06:08 MCH 25.4 pg (28.0-34. 0) L 03/24/21 06:08 MCHC 30.9 g/dL (30.0-3 6.0) 03/24/21 06:08 RDW 17.3 % (12.1-15.1 ) H 03/24/21 06:08 Plt Count 234 10^3/cmm (130 -400) 03/24/21 06:08 MPV 11.3 fL (7.4-10.4 ) H 03/24/21 06:08 Neut % (Auto) 73.4 % 03/24/21 06:08 Lymph % (Auto) 18.5 % 03/24/21 06:08 [place] % (Auto) 6.9 % 03/24/21 06:08 Eos % (Auto) 0.0 % 03/24/21 06:08 Baso % (Auto) 0.2 % 03/24/21 06:08 Neut # (Auto) 4.24 10^3/uL (1.8 -7.7) 03/24/21 06:08 Lymph # (Auto) 1.1 10^3/uL (0.8- 4.8) 03/24/21 06:08 [place] # (Auto) 0.4 10^3/uL (0.2- 0.9) 03/24/21 06:08 Eos # (Auto) 0.0 10^3/uL (0.0- 0.8) 03/24/21 06:08 Baso # (Auto) 0.0 10^3/uL (0.0- 0.1) 03/24/21 06:08 Nucleated RBC % (a uto) 0 % 03/24/21 06:08 Nucleated RBCs # 0.0 /100WBC 03/24/21 06:08 PT 13.40 SECONDS (12 .1-14.9) 03/23/21 07:43 INR 0.99 (0.8-1.2) 03/23/21 07:43 APTT 34.2 SECONDS (23. 9-36.7) 03/23/21 07:43 D-Dimer 1.31 ug/mIFEU (0- 0.59) H 03/24/21 06:08 Specimen Type Arterial 03/23/21 07:40 Sample Site Radial, left 03/23/21 07:40 ABG pH 7.42 (7.35-7.45) 03/23/21 07:40 ABG pCO2 36.5 mmHg (35-45) 03/23/21 07:40 ABG pO2 65.2 mmHg (80.0-1 00.0) L 03/23/21 07:40 ABG HCO3 23.4 mmol/L (22-2 6) 03/23/21 07:40 ABG O2 Saturation 94.1 03/23/21 07:40 ABG Base Excess -0.7 mmol/L (-2.0 -2.0) 03/23/21 07:40 Alvin Test Pos 03/23/21 07:40 A-a O2 Gradient 78.2 mmHg (5-10) H 03/23/21 07:40 Hematocrit 43.2 % (37-47) 03/23/21 07:40 Hgb O2 Saturation 92.9 % (95-100) L 03/23/21 07:40 Carboxyhemoglobin 1.2 %THgb (0.4-20 .1) 03/23/21 07:40 Methemoglobin 0.1 % (0.4-1.5) L 03/23/21 07:40 Total Hemoglobin 14.1 g/dL (12-16) 03/23/21 07:40 Sodium 133.0 mmol/L (131 -143) 03/23/21 07:40 Potassium 4.3 mmol/L (3.5-5 .0) 03/23/21 07:40 Glucose 364.0 mg/dL (70-1 15) H 03/23/21 07:40 Ionized Calcium 1.1 mmol/L (1.1-1 .4) 03/23/21 07:40 O2 Delivery Device Nrb 03/23/21 07:40 O2 Liters/Min 15.0 % 03/23/21 07:40 FiO2 100.0 % 03/23/21 07:40 [employer] ID [id number] 03/23/21 07:40 Sodium 133 mmol/L (136-1 45) L 03/24/21 12:36 Potassium 5.2 mmol/L (3.5-5 .1) H 03/24/21 12:36 Chloride 97 mmol/L (98-107 ) L 03/24/21 12:36 Carbon Dioxide 25 mmol/L (22-29) 03/24/21 12:36 Anion Gap 16.2 (5-19) 03/24/21 12:36 BUN 26 mg/dL (6-20) H 03/24/21 12:36 Creatinine 0.8 mg/dL (0.5-0. 9) 03/24/21 12:36 GFR Calculation 79.4 mL/min (90-1 30) L 03/24/21 12:36 Glucose 334 mg/dL (65-115 ) H 03/24/21 12:36 POC Glucose 277 mg/dL (70-110 ) H 03/24/21 11:35 Estimat Average Gl ucose 324 03/23/21 07:43 Hemoglobin A1c 12.9 % (4.0-6.0) H 03/23/21 07:43 Calculated Osmolal ity 294 mOsm/kg (285- 295) 03/24/21 12:36 Lactic Acid 2.0 mmol/L (0.5-2 .2) 03/23/21 07:43 Calcium 8.0 mg/dL (8.5-10 .5) L 03/24/21 12:36 Magnesium 2.1 mg/dL (1.7-2. 3) 03/24/21 06:08 Total Bilirubin 0.4 mg/dL (0.15-1 .2) 03/24/21 12:36 AST 45 U/L (0-32) H 03/24/21 12:36 ALT 33 U/L (0-33) 03/24/21 12:36 Alkaline Phosphata se 171 IU/L (35-105) H 03/24/21 12:36 C-Reactive Protein 143.0 mg/L (0.0-4 .9) H 03/24/21 06:08 NT-Pro-B Natriuret Pep 53 pg/mL (0-125) 03/23/21 07:43 NT-Pro-B Natriuret Pep Cancelled 03/23/21 07:43 Total Protein 7.1 g/dL (6.6-8.7 ) 03/24/21 12:36 Albumin 2.9 g/dL (3.5-5.2 ) L 03/24/21 12:36 Globulin 4.2 g/dL (1.3-4.6 ) 03/24/21 12:36 Procalcitonin 0.41 ng/mL (0-0.5 ) 03/23/21 07:43 TSH 0.71 uIU/mL (0.27 -4.20) 03/23/21 07:43 Urine Color Yellow (Yellow) 03/23/21 17:30 Urine Appearance Cloudy (CLEAR) 03/23/21 17:30 Urine pH 5 (5-7) 03/23/21 17:30 Ur Specific Gravit y 1.010 (1.005-1.0 30) 03/23/21 17:30 Urine Protein Neg (Negative) 03/23/21 17:30 Urine Glucose (UA) 4+ (Normal) H 03/23/21 17:30 Urine Ketones 2+ (Negative) H 03/23/21 17:30 Urine Blood Neg (Negative) 03/23/21 17:30 Urine Nitrate Positive (Negati ve) H 03/23/21 17:30 Urine Bilirubin Neg (Negative) 03/23/21 17:30 Urine Urobilinogen Norm mg/dL (Negat john) 03/23/21 17:30 Ur Leukocyte Shavon ase Negative (Negati ve) 03/23/21 17:30 Urine RBC None /hpf (0-2) 03/23/21 17:30 Urine WBC 10-15 /hpf (0-5) H 03/23/21 17:30 Ur Squamous Epith Cells 0-4 /hpf (0-5) H 03/23/21 17:30 Amorphous Sediment Not Reportable 03/23/21 17:30 Urine Bacteria 1+ /hpf (NONE) H 03/23/21 17:30 Urine Yeast 3+ /hpf H 03/23/21 17:30 Nasal/Oral COVID-1 9 PCR Detected H 03/23/21 09:57 Hepatitis A IgM Ab Non-reactive (No nreactive) 03/23/21 07:43 Hep Bs Antigen Non-reactive (No nreactive) 03/23/21 07:43 Hep B Core IgM Ab Non-reactive (No nreactive) 03/23/21 07:43 Hepatitis C Antibo dy Non-reactive (No nreactive) 03/23/21 07:43 SARS-CoV-2 Ag (Rap id) Negative (Negati ve) 03/23/21 07:51 Impressions Chest X-Ray 03/23/21 07:33 IMPRESSION: No prior chest films. Likely pneumonitis unknown chronicity. Chest CTA 03/23/21 12:25 IMPRESSION: 1. No evidence of pulmonary embolus considering limitations. Distal pulmonary arteries not well evaluated due to breathing artifact and body habitus. 2. Shallow inspiration. Diffuse hazy bilateral groundglass infiltrates compatible with COVID19 pneumonia. 3. No mediastinal or hilar lymphadenopathy. 4. Partially evaluated diffuse heterogeneity throughout the right hepatic lobe. This is indeterminant and recommend contrast-enhanced CT abdomen pelvis or ultrasound in further evaluation. Metastatic disease not excluded. Notified Isrrael Noble MD at 03/23/2021 4:12 PM. Abdomen Ultrasound 03/24/21 04:00 IMPRESSION: Technically difficult examination 1. Hepatomegaly with diffuse fatty infiltration. 2. Diffuse hepatic heterogeneity not well evaluated due to body habitus. Recommend further evaluation with contrast-enhanced CT abdomen pelvis liver protocol. 3. Echogenic lesion measuring 2.8 x 2.5 x 2.8 cm with suspicious thin hypoechoic halo. Differential considerations include cavernous hemangioma versus metastatic disease or liver neoplasm. Recommend further evaluation of the liver with contrast-enhanced CT abdomen pelvis with liver protocol. 4. Normal gallbladder and common bile duct. 5. No hydronephrosis in right kidney. Micro: Micro: Microbiology 03/23/21 17:25 MRSA Culture - Fin al Nose 03/23/21 17:30 Bacterial Antigens - Final Urine,Clean Catch 03/23/21 07:50 Blood Culture - Pr eliminary Blood NEGATIVE TO MARILYN E 03/23/21 07:43 Blood Culture - Pr eliminary Blood NEGATIVE TO MARILYN E A&P Assessment and plan (1) Acute respiratory failure: Status: Acute Qualifiers: Respiratory failure complication: hypoxia Qualified Code(s): J96.01 - Acute respiratory failure with hypoxia (2) ARDS (adult respiratory distress syndrome): Status: Acute (3) Controlled diabetes mellitus type 1 without complications: Status: Chronic (4) Asthma: Status: Chronic Qualifiers: Asthma complication type: uncomplicated Asthma persistence: intermittent Asthma severity: mild Qualified Code(s): J45.20 - Mild intermittent asthma, uncomplicated (5) GERD (gastroesophageal reflux disease): Status: Chronic Qualifiers: Esophagitis presence: without esophagitis Qualified Code(s): K21.9 - Gastro-esophageal reflux disease without esophagitis (6) Suspected COVID-19 virus infection: Status: Acute Overall: 40 year old female with PMH asthma type 1 diabetes mellitus, depression, hypertension, fibromyalgia, GERD, hyperlipidemia presented to ED on 03/23/2021 with nausea, vomiting, loose stools and significant shortness of breath admitted with hypoxic respiratory failure secondary to ARDS due to COVID- 19 pneumonia requiring HFNC 60 L 90%. #Acute hypoxic respiratory failure secondary to ARDS due to COVID-19 pneumonia #History of asthma #Type 1 diabetes mellitus #Echogenic lesion of right hepatic lobe-hemangioma vs malignancy #Deranged LFTs-likely secondary to COVID-19 pneumonia #Patient reported family history of ?? arrhythmia-her brother and her sister is not doing well -Currently on HFNC-60 L 90% saturating 92%, desaturates to low 80s even with talking -Bacterial antigens negative, MRSA culture negative, blood cultures negative so far -Afebrile since admission, normal WBC count, procalcitonin 0.41; BNP 41 -Elevated CRP, D-dimer,-monitor inflammatory markers every 48-72 hours -CT angiogram no evidence of pulmonary. Distal pulmonary arteries visualized. Diffuse hazy bilateral GGO's compatible with COVID-19 pneumonia. -S/p Actemra 03/23/2021 -Started on remdesivir 5-day total course 03/23/2021 and currently on dexamethasone 6 mg daily -Currently covered with Zosyn started 03/23/2021 -Elevated LFTs likely secondary to COVID-19 monitor ; if continues to worsen: Hold atorvastatin -abdominal ultrasound & CT imaging showed echogenic right hepatic lobe lesion- hemangioma versus malignancy; -I ordered AFP for morning labs -Albuterol 1 puff every 6 hours scheduled; fluticasone 2 puffs twice daily -Sugars moderately controlled-currently on insulin Levemir 120 units twice daily and insulin aspart 30 units 3 times daily AC -Lovenox 40 mg daily for DVT prophylaxis -Pantoprazole 40 mg at bedtime for GERD Condition; stable Prognosis: Guarded We will continue close respiratory monitoring in ICU for possible worsening of ARDS and progression of COVID-19 pneumonia. Currently saturating 92% on high flow 60 L 90% but she is at high risk for intubation and mechanical ventilation. Medical condition explained to the patient and patient verbalized understanding and agreed with the plan Recommendations conveyed to hospitalist, RN, RT covering the patient Consult Attestations Medical Necessity Statement: Acute hypoxic respiratory failure secondary to ARDS due to COVID-19 pneumonia requiring high flow nasal cannula 60 L 90% Time Spent in Patient Care: Greater than 35 minutes (>than 50% of time spent in counselling and/or direct pt care on unit) . Critical Care Time: The high probability of a clinically significant, sudden or life threatening deterioration of the patient's [respiratory, endocrine, hepatic, cardiac] system(s) required my full and direct attention, intervention and personal management. The critical care time is as shown. This time is in addition to time spent performing any reported procedures but includes the following: [x] Data and vital sign review and interpretation [x] Patient assessment, examination and intervention [x] Documentation [x] Medication orders and management Critical Care Time (min): 45 Coding Level of Care Code Acute [facility] Diagnoses Acute respiratory failure J96.01 Respiratory failure complication: hypoxia ARDS (adult respiratory distress syndrome) J80 Controlled diabetes mellitus type 1 without complications E10.9 Asthma J45.20 Asthma complication type: uncomplicated Asthma persistence: intermittent Asthma severity: mild GERD (gastroesophageal reflux disease) K21.9 Esophagitis presence: without esophagitis Suspected COVID-19 virus infection Z20.822
[2021-03-24 14:25] LABS: Coronavirus Test Green County Detected
[2021-03-24 15:06] LABS: Glucose Point of Care 324 mg/dL (70-110)
[2021-03-24 16:32] LABS: Alanine Aminotransferase 34 U/L (0-33); Albumin Level 2.8 g/dL (3.5-5.2); Alkaline Phosphatase 179 IU/L (35-105); Aspartate Amino Transferase 44 U/L (0-32); Blood Urea Nitrogen 26 mg/dL (6-20); Carbon Dioxide 24 mmol/L (22-29); Chloride 100 mmol/L (98-107); Globulin 4.2 g/dL (1.3-4.6); Glomerular Filtration Rate 79.4 mL/min (90-130); Glucose 370 mg/dL (65-115); Osmolality Calculated 296 mOsm/kg (285-295); Sodium 133 mmol/L (136-145); Total Bilirubin 0.3 mg/dL (0.15-1.2)
[2021-03-24 16:34] LABS: Anion Gap 14.2 (5-19); Potassium 5.2 mmol/L (3.5-5.1)
[2021-03-24 17:05] LABS: Glucose Point of Care 372 mg/dL (70-110)
[2021-03-24] MEDS: remdesivir 100 MG in sodium chloride 0.9% (100 ml) 100 ML IV (17:22)
[2021-03-24] MEDS: enoxaparin 40 mg/0.4 mL Syringe SUBCUT (17:22)
--- NOTE | 2021-03-24 17:39 | PM.PN ---
Subjective Subjective: Interval history: Keily reports that she feels perhaps a little bit better today. Medications: Reviewed: Yes Vitals/I&O/Wt Last Vital Signs Temp 97.9 F 03/24/21 11:00 Pulse 70 03/24/21 14:00 Resp 21 H 03/24/21 14:00 BP 113/61 03/24/21 14:00 Pulse Ox 91 03/24/21 14:00 03/24/21 03/24/21 03/24/21 06:59 14:59 22:59 Intake Total 1166.287 / 2421.287 900.341 / 900.341 50 / 950.341 Output Total 1100 / 3100 Balance 66.287 / -678.713 900.341 / 900.341 50 / 950.341 Weight last 48 hrs Weight 145.15 kg Weight 145.15 kg Physical Exam Narrative: EXAM NARRATIVE: General exam moderate respiratory distress Neck supple no lymphadenopathy thyromegaly Cardiovascular regular rate and rhythm without murmur Lungs scattered crackles Abdomen is soft nontender positive bowel sounds Extremities no cyanosis clubbing or edema Urinary Catheter Management^: Matthews: Cath Placed During This Visit: yes Reason for Continuing Indwelling Catheter: Accurate Measurement of Urinary Output in Critically Ill Patients Urinary Catheter Date of Insertion: 03/23/21 Urinary Catheter Time of Insertion: 16:47 Data : 03/24/21 06:08 03/24/21 15:43 Micro: Microbiology 03/23/21 17:25 MRSA Culture - Final Nose 03/23/21 17:30 Bacterial Antigens - Final Urine,Clean Catch 03/23/21 07:50 Blood Culture - Preliminary Blood NEGATIVE TO DATE 03/23/21 07:43 Blood Culture - Preliminary Blood NEGATIVE TO DATE A&P Assessment and plan (1) Suspected COVID-19 virus infection: History, exam, and ancillary testing to date very consistent with COVID-19 pneumonia. PCR has come back positive today. Continue remdesivir Continue dexamethasone 6 mg IV every 24 hours 1 dose of Tocilizumab given 03/23 Continue empiric Zosyn Await blood cultures High flow oxygen wean as tolerated Appreciate pulmonary consultation Status: Acute (2) Acute respiratory failure: Status: Acute Qualifiers: Respiratory failure complication: hypoxia Qualified Code(s): J96.01 - Acute respiratory failure with hypoxia (3) Asthma: No evidence of exacerbation currently. Continue pulmonary toilet Status: Chronic Qualifiers: Asthma severity: mild Asthma persistence: intermittent Asthma complication type: uncomplicated Qualified Code(s): J45.20 - Mild intermittent asthma, uncomplicated Additional A&P Information Diabetes mellitus. Insulin regimen initiated Obesity. TSH checked and normal Transaminitis. Hepatitis panel negative. Abdominal ultrasound demonstrates likely cyst. Pulmonary checking AFP. Chronic pain syndrome. Has pain pump with morphine and bupivacaine. This will continue currently. Multiple other medical problems as outlined in the medical history Full code Lovenox for DVT prophylaxis Attestations Medical Necessity Statement*: Needs continued hospitalization in the ICU secondary to severe COVID-19 pneumonia requiring high flow oxygen. Critical Care Time: The high probability of a clinically significant, sudden or life threatening deterioration of the patient's [pulmonary] system(s) required my full and direct attention, intervention and personal management. The critical care time is as shown. This time is in addition to time spent performing any reported procedures but includes the following: [x] Data and vital sign review and interpretation [x] Patient assessment, examination and intervention [x] Documentation [x] Medication orders and management Critical Care Time (min): 32 Coding Level of Care Code Acute Account Leader for [facility] Fwd Diagnoses Suspected COVID-19 virus infection Z20.822 Acute respiratory failure J96.01 Respiratory failure complication: hypoxia Asthma J45.20 Asthma severity: mild Asthma persistence: intermittent Asthma complication type: uncomplicated
[2021-03-24 20:43] LABS: Glucose Point of Care 337 mg/dL (70-110)
[2021-03-24] MEDS: aspirin 81 mg EC Tablet PO (20:47)
[2021-03-24] MEDS: atorvastatin 40 mg Tablet 20 MG PO (20:47)
[2021-03-24] MEDS: pantoprazole DR 40 mg Tablet PO (20:47)
[2021-03-25] VITALS (83 sets, daily range): BP systolic 95–144; BP diastolic 56–95; PULSE 58–80; RESP 12–27; TEMP 36.6–37.1; O2SAT 83–97; BMI 45.1
[2021-03-25] MEDS: albuterol 8 gm MDI 1 PUFF INHALATION ×4 (02:52→22:32)
[2021-03-25] MEDS: piperacillin-tazobactam 3.375 GM in sodium chloride 0.9% (plus) 50 ML IV ×3 (04:59→20:29)
[2021-03-25] MEDS: atenolol 50 mg Tablet 25 MG PO (05:00)
[2021-03-25 05:23] LABS: Basophils % 0.2 %; Hematocrit 45.8 % (37.0-47.0); Hemoglobin 13.8 g/dL (11.5-15.3); Lymphocytes # 1.4 10^3/uL (0.8-4.8); Mean Corpuscular HGB Conc 30.1 g/dL (30.0-36.0); Mean Corpuscular Volume 83.1 fL (81-99); Mean Platelet Volume 10.9 fL (7.4-10.4); Monocytes # 0.8 10^3/uL (0.2-0.9); Monocytes % 6.3 %; Neutrophils # 10.37 10^3/uL (1.8-7.7); Neutrophils % 81.8 %; Nucleated Red Blood Cells % 0 %; Platelet Count 277 10^3/cmm (130-400); Red Blood Count 5.51 10^6/uL (4.1-5.3); White Blood Count 12.7 10^3/uL (4.0-10.0)
[2021-03-25 05:54] LABS: Alanine Aminotransferase 32 U/L (0-33); Albumin Level 2.8 g/dL (3.5-5.2); Alkaline Phosphatase 167 IU/L (35-105); Aspartate Amino Transferase 39 U/L (0-32); Blood Urea Nitrogen 31 mg/dL (6-20); Calcium 8.3 mg/dL (8.5-10.5); Carbon Dioxide 28 mmol/L (22-29); Chloride 98 mmol/L (98-107); Globulin 4.3 g/dL (1.3-4.6); Glomerular Filtration Rate 79.4 mL/min (90-130); Glucose 353 mg/dL (65-115); Osmolality Calculated 297 mOsm/kg (285-295); Sodium 133 mmol/L (136-145); Total Bilirubin 0.4 mg/dL (0.15-1.2); Total Protein 7.1 g/dL (6.6-8.7)
[2021-03-25 05:55] LABS: Anion Gap 12.2 (5-19); Potassium 5.2 mmol/L (3.5-5.1)
[2021-03-25 08:13] LABS: Glucose Point of Care 330 mg/dL (70-110)
--- NOTE | 2021-03-25 09:06 | PC.CHAP ---
Pastoral Care Encounter/Spiritual Assessment Type of Contact [] Declined grievance coordinator visit [] Patient/Family/Request visit [] Outpatient visit [] Follow-up visit [] Physician referral [] Code/Alert [x] Routine visit [] Staff referral [] Actively dying [] Patient sleeping [] Family support [] [] Out of room [] Palliative care [] [] Receiving care in room [] Pre-surgical visit [] Trauma [] Long length of stay [x] ICU visit [x] Other: patient having breakfast... made eye contact-- prayed Relational/Emotional Strength [] Patient feels connected with others/family/visitors/staff [] Distress [] Loneliness/isolation [] Abandonment Spirituality of Patient [] Person of Barbara [] Attends Gnosticism of their Barbara [] Believes in Prayer [] Reads Bible or Pentecostalism materials [] There are Spiritual issues to be addressed Ekg Monitor Tech 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 [x] Prayer [] Active listening [] Non-anxious presence [] Spiritual/emotional support [] Crisis/trauma care [] Spiritual counseling [] Bereavement support [] Provided bereavement packet [] Provided Bible/devotional materials [] Provided toy/stuffed animal, coloring book to patient or family member [] Provided Communion [] Anointing/Dowling [] Salvation [x] Completed spiritual assessment [] Other: Impact on Illness or Injury [] Angry [] Fearful [] Anxious [] Often cries [] Exhaustion [] Unable to work [] Unable to attend lutheran [] Unable to walk/stand [] Unable to read [] Unable to drive [] Unable to eat/drink [] Unable to sleep [] Unable to be with family [] Patient intubated [] Other: Summary Time spent with patient
[2021-03-25] MEDS: dexamethasone 4 mg/mL INJ 6 MG IVP (09:26)
[2021-03-25] MEDS: duloxetine 20 mg Capsule 40 MG PO (09:27)
[2021-03-25] MEDS: cetirizine 10 mg Tablet PO (09:27)
[2021-03-25] MEDS: baclofen 10 mg Tablet PO ×3 (09:27→20:29)
[2021-03-25 12:36] LABS: Glucose Point of Care 274 mg/dL (70-110)
--- NOTE | 2021-03-25 12:36 | PM.PN ---
Subjective Subjective: Interval history: Keily reports she feels somewhat better. Less short of breath. Medications: Reviewed: Yes Vitals/I&O/Wt Last Vital Signs Temp 97.8 F 03/25/21 07:00 Pulse 64 03/25/21 11:47 Resp 16 03/25/21 11:47 BP 128/77 03/25/21 11:30 Pulse Ox 94 03/25/21 11:47 03/24/21 03/25/21 03/25/21 22:59 06:59 14:59 Intake Total 1550 / 2450.341 50 / 2500.341 350 / 350 Output Total 600 / 600 475 / 1075 Balance 950 / 1850.341 -425 / 1425.341 350 / 350 Weight last 48 hrs Weight 142.882 kg Weight 145.15 kg Physical Exam Narrative: EXAM NARRATIVE: General exam mild respiratory distress on current amount of FiO2. This is improved from yesterday. She is slightly slow on some of her responses. Neck supple no lymphadenopathy thyromegaly Cardiovascular regular rate and rhythm without murmur Lungs scattered crackles Abdomen is soft nontender positive bowel sounds Extremities no cyanosis clubbing or edema Urinary Catheter Management^: Matthews: Cath Placed During This Visit: yes Reason for Continuing Indwelling Catheter: Accurate Measurement of Urinary Output in Critically Ill Patients Urinary Catheter Date of Insertion: 03/23/21 Urinary Catheter Time of Insertion: 16:47 Data : 03/25/21 04:51 03/25/21 04:51 Micro: Microbiology 03/23/21 17:30 Urine Culture - Preliminary Urine,Clean Catch Gram Negative Rods 03/23/21 17:25 MRSA Culture - Final Nose 03/23/21 17:30 Bacterial Antigens - Final Urine,Clean Catch 03/23/21 07:50 Blood Culture - Preliminary Blood NEGATIVE TO DATE 03/23/21 07:43 Blood Culture - Preliminary Blood NEGATIVE TO DATE A&P Assessment and plan (1) Suspected COVID-19 virus infection: History, exam, and ancillary testing to date very consistent with COVID-19 pneumonia. PCR has come back positive today. Continue remdesivir Continue dexamethasone 6 mg IV every 24 hours 1 dose of Tocilizumab given 03/23 Continue empiric Zosyn Await blood cultures High flow oxygen wean as tolerated Appreciate pulmonary consultation Overall appears to be improving. Lasix IV x1 today. Status: Acute (2) Acute respiratory failure: Status: Acute Qualifiers: Respiratory failure complication: hypoxia Qualified Code(s): J96.01 - Acute respiratory failure with hypoxia (3) Asthma: No evidence of exacerbation currently. Continue pulmonary toilet Status: Chronic Qualifiers: Asthma severity: mild Asthma persistence: intermittent Asthma complication type: uncomplicated Qualified Code(s): J45.20 - Mild intermittent asthma, uncomplicated Additional A&P Information Diabetes mellitus. Insulin regimen initiated. Short acting insulin increase slightly. Obesity. TSH checked and normal Transaminitis. Hepatitis panel negative. Abdominal ultrasound demonstrates likely cyst. Pulmonary checking AFP. Urine culture growing gram-negative rods. Continue Zosyn. Chronic pain syndrome. Has pain pump with morphine and bupivacaine. This will continue currently. Multiple other medical problems as outlined in the medical history Full code Lovenox for DVT prophylaxis Attestations Medical Necessity Statement*: Needs continued hospitalization for high flow oxygen needed for severe COVID-19 pneumonia. 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
[2021-03-25] MEDS: FUROsemide 10 mg/mL SDV 4mL 40 MG IVP (13:19)
--- NOTE | 2021-03-25 15:11 | P.PN_ITS ---
Subjective Subjective: Interval history: -Patient seen at bedside today -Down titrated FiO2 to 60% and 60 L; patient complaining of uncomfortable sensation inhaling such high volumes of air -Labs and imaging reviewed Medications: Reviewed: Yes Vitals/I&O/Wt Last Vital Signs Temp 97.8 F 03/25/21 07:00 Pulse 67 03/25/21 14:08 Resp 18 03/25/21 14:06 BP 128/77 03/25/21 11:30 Pulse Ox 92 03/25/21 14:06 03/25/21 03/25/21 03/25/21 06:59 14:59 22:59 Intake Total 50 / 2500.341 350 / 350 Output Total 475 / 1075 Balance -425 / 1425.341 350 / 350 Weight last 48 hrs Weight 315 lb Weight 320 lb Physical Exam Narrative: EXAM NARRATIVE: General: alert, NAD HEENT: conj clear, EOMI, PERRL, mmm, Neck: supple, no meningismus Heme: no cervical LAP Pulmonary: Bibasilar crepitations Cardiovascular: rrr, nl s1s2, no mrg Abdomen: soft, nt, nd, no r/g, bs+ Extremities: pulses are 1+ pitting pedal edema, no c/c : no CVA tenderness Skin: intact, no rash MSK: no back or neck pain Neurologic: grossly intact Urinary Catheter Management^: Matthews: Cath Placed During This Visit: yes Reason for Continuing Indwelling Catheter: Accurate Measurement of Urinary Output in Critically Ill Patients Urinary Catheter Date of Insertion: 03/23/21 Urinary Catheter Time of Insertion: 16:47 Data : 03/25/21 04:51 03/25/21 04:51 Other Labs: Laboratory Results WBC 12.7 10^3/uL (4.0-10.0) H 03/25/21 04:51 RBC 5.51 10^6/uL (4.1-5.3) H 03/25/21 04:51 Hgb 13.8 g/dL (11.5-15.3) 03/25/21 04:51 Hct 45.8 % (37.0-47.0) 03/25/21 04:51 MCV 83.1 fL (81-99) 03/25/21 04:51 MCH 25.0 pg (28.0-34.0) L 03/25/21 04:51 MCHC 30.1 g/dL (30.0-36.0) 03/25/21 04:51 RDW 18.0 % (12.1-15.1) H 03/25/21 04:51 Plt Count 277 10^3/cmm (130-400) 03/25/21 04:51 MPV 10.9 fL (7.4-10.4) H 03/25/21 04:51 Neut % (Auto) 81.8 % 03/25/21 04:51 Lymph % (Auto) 11.0 % 03/25/21 04:51 [place] % (Auto) 6.3 % 03/25/21 04:51 Eos % (Auto) 0.0 % 03/25/21 04:51 Baso % (Auto) 0.2 % 03/25/21 04:51 Neut # (Auto) 10.37 10^3/uL (1.8-7.7) H 03/25/21 04:51 Lymph # (Auto) 1.4 10^3/uL (0.8-4.8) 03/25/21 04:51 [place] # (Auto) 0.8 10^3/uL (0.2-0.9) 03/25/21 04:51 Eos # (Auto) 0.0 10^3/uL (0.0-0.8) 03/25/21 04:51 Baso # (Auto) 0.0 10^3/uL (0.0-0.1) 03/25/21 04:51 Nucleated RBC % (auto) 0 % 03/25/21 04:51 Nucleated RBCs # 0.0 /100WBC 03/25/21 04:51 PT 13.40 SECONDS (12.1-14.9) 03/23/21 07:43 INR 0.99 (0.8-1.2) 03/23/21 07:43 APTT 34.2 SECONDS (23.9-36.7) 03/23/21 07:43 D-Dimer 1.31 ug/mIFEU (0-0.59) H 03/24/21 06:08 Specimen Type Arterial 03/23/21 07:40 Sample Site Radial, left 03/23/21 07:40 ABG pH 7.42 (7.35-7.45) 03/23/21 07:40 ABG pCO2 36.5 mmHg (35-45) 03/23/21 07:40 ABG pO2 65.2 mmHg (80.0-100.0) L 03/23/21 07:40 ABG HCO3 23.4 mmol/L (22-26) 03/23/21 07:40 ABG O2 Saturation 94.1 03/23/21 07:40 ABG Base Excess -0.7 mmol/L (-2.0-2.0) 03/23/21 07:40 Alvin Test Pos 03/23/21 07:40 A-a O2 Gradient 78.2 mmHg (5-10) H 03/23/21 07:40 Hematocrit 43.2 % (37-47) 03/23/21 07:40 Hgb O2 Saturation 92.9 % (95-100) L 03/23/21 07:40 Carboxyhemoglobin 1.2 %THgb (0.4-20.1) 03/23/21 07:40 Methemoglobin 0.1 % (0.4-1.5) L 03/23/21 07:40 Total Hemoglobin 14.1 g/dL (12-16) 03/23/21 07:40 Sodium 133.0 mmol/L (131-143) 03/23/21 07:40 Potassium 4.3 mmol/L (3.5-5.0) 03/23/21 07:40 Glucose 364.0 mg/dL (70-115) H 03/23/21 07:40 Ionized Calcium 1.1 mmol/L (1.1-1.4) 03/23/21 07:40 O2 Delivery Device Nrb 03/23/21 07:40 O2 Liters/Min 15.0 % 03/23/21 07:40 FiO2 100.0 % 03/23/21 07:40 Bariatric Physician ID Gd 03/23/21 07:40 Sodium 133 mmol/L (136-145) L 03/25/21 04:51 Potassium 5.2 mmol/L (3.5-5.1) H 03/25/21 04:51 Chloride 98 mmol/L (98-107) 03/25/21 04:51 Carbon Dioxide 28 mmol/L (22-29) 03/25/21 04:51 Anion Gap 12.2 (5-19) 03/25/21 04:51 BUN 31 mg/dL (6-20) H 03/25/21 04:51 Creatinine 0.8 mg/dL (0.5-0.9) 03/25/21 04:51 GFR Calculation 79.4 mL/min (90-130) L 03/25/21 04:51 Glucose 353 mg/dL (65-115) H 03/25/21 04:51 POC Glucose 274 mg/dL (70-110) H 03/25/21 12:26 Estimat Average Glucose 324 03/23/21 07:43 Hemoglobin A1c 12.9 % (4.0-6.0) H 03/23/21 07:43 Calculated Osmolality 297 mOsm/kg (285-295) H 03/25/21 04:51 Lactic Acid 2.0 mmol/L (0.5-2.2) 03/23/21 07:43 Calcium 8.3 mg/dL (8.5-10.5) L 03/25/21 04:51 Magnesium 2.1 mg/dL (1.7-2.3) 03/24/21 06:08 Total Bilirubin 0.4 mg/dL (0.15-1.2) 03/25/21 04:51 AST 39 U/L (0-32) H 03/25/21 04:51 ALT 32 U/L (0-33) 03/25/21 04:51 Alkaline Phosphatase 167 IU/L (35-105) H 03/25/21 04:51 C-Reactive Protein 143.0 mg/L (0.0-4.9) H 03/24/21 06:08 NT-Pro-B Natriuret Pep 53 pg/mL (0-125) 03/23/21 07:43 NT-Pro-B Natriuret Pep Cancelled 03/23/21 07:43 Total Protein 7.1 g/dL (6.6-8.7) 03/25/21 04:51 Albumin 2.8 g/dL (3.5-5.2) L 03/25/21 04:51 Globulin 4.3 g/dL (1.3-4.6) 03/25/21 04:51 Tumor Marker AFP 2.0 ng/mL (0-8.3) 07/28/21 04:51 Procalcitonin 0.41 ng/mL (0-0.5) 03/23/21 07:43 TSH 0.71 uIU/mL (0.27-4.20) 03/23/21 07:43 Urine Color Yellow (Yellow) 03/23/21 17:30 Urine Appearance Cloudy (CLEAR) 03/23/21 17:30 Urine pH 5 (5-7) 03/23/21 17:30 Ur Specific [place] 1.010 (1.005-1.030) 03/23/21 17:30 Urine Protein Neg (Negative) 03/23/21 17:30 Urine Glucose (UA) 4+ (Normal) H 03/23/21 17:30 Urine Ketones 2+ (Negative) H 03/23/21 17:30 Urine Blood Neg (Negative) 03/23/21 17:30 Urine Nitrate Positive (Negative) H 03/23/21 17:30 Urine Bilirubin Neg (Negative) 03/23/21 17:30 Urine Urobilinogen Norm mg/dL (Negative) 03/23/21 17:30 Ur Leukocyte Esterase Negative (Negative) 03/23/21 17:30 Urine RBC None /hpf (0-2) 03/23/21 17:30 Urine WBC 10-15 /hpf (0-5) H 03/23/21 17:30 Ur Squamous Epith Cells 0-4 /hpf (0-5) H 03/23/21 17:30 Amorphous Sediment Not Reportable 03/23/21 17:30 Urine Bacteria 1+ /hpf (NONE) H 03/23/21 17:30 Urine Yeast 3+ /hpf H 03/23/21 17:30 Nasal/Oral COVID-19 PCR Detected H 03/23/21 09:57 Hepatitis A IgM Ab Non-reactive (Nonreactive) 03/23/21 07:43 Hep Bs Antigen Non-reactive (Nonreactive) 03/23/21 07:43 Hep B Core IgM Ab Non-reactive (Nonreactive) 03/23/21 07:43 Hepatitis C Antibody Non-reactive (Nonreactive) 03/23/21 07:43 SARS-CoV-2 Ag (Rapid) Negative (Negative) 03/23/21 07:51 Impressions Chest X-Ray 03/23/21 07:33 IMPRESSION: No prior chest films. Likely pneumonitis unknown chronicity. Chest CTA 03/23/21 12:25 IMPRESSION: 1. No evidence of pulmonary embolus considering limitations. Distal pulmonary arteries not well evaluated due to breathing artifact and body habitus. 2. Shallow inspiration. Diffuse hazy bilateral groundglass infiltrates compatible with COVID19 pneumonia. 3. No mediastinal or hilar lymphadenopathy. 4. Partially evaluated diffuse heterogeneity throughout the right hepatic lobe. This is indeterminant and recommend contrast-enhanced CT abdomen pelvis or ul trasound in further evaluation. Metastatic disease not excluded. Notified Isrrael Noble MD at 03/23/2021 4:12 PM. Abdomen Ultrasound 03/24/21 04:00 IMPRESSION: Technically difficult examination 1. Hepatomegaly with diffuse fatty infiltration. 2. Diffuse hepatic heterogeneity not well evaluated due to body habitus. Recommend further evaluation with contrast-enhanced CT abdomen pelvis liver protocol. 3. Echogenic lesion measuring 2.8 x 2.5 x 2.8 cm with suspicious thin hypoechoic halo. Differential considerations include cavernous hemangioma versus metastatic disease or liver neoplasm. Recommend further evaluation of the liver with contrast-enhanced CT abdomen pelvis with liver protocol. 4. Normal gallbladder and common bile duct. 5. No hydronephrosis in right kidney. Micro: Microbiology 03/23/21 17:30 Urine Culture - Preliminary Urine,Clean Catch Gram Negative Rods 03/23/21 17:25 MRSA Culture - Final Nose 03/23/21 17:30 Bacterial Antigens - Final Urine,Clean Catch A&P Assessment and plan (1) Acute respiratory failure: Status: Acute Qualifiers: Respiratory failure complication: hypoxia Qualified Code(s): J96.01 - Acute respiratory failure with hypoxia (2) ARDS (adult respiratory distress syndrome): Status: Acute (3) Controlled diabetes mellitus type 1 without complications: Status: Chronic (4) Asthma: Status: Chronic Qualifiers: Asthma severity: mild Asthma persistence: intermittent Asthma complication type: uncomplicated Qualified Code(s): J45.20 - Mild intermittent asthma, uncomplicated (5) GERD (gastroesophageal reflux disease): Status: Chronic Qualifiers: Esophagitis presence: without esophagitis Qualified Code(s): K21.9 - Gastro-esophageal reflux disease without esophagitis (6) Suspected COVID-19 virus infection: Status: Acute (7) Chronic pain syndrome: Status: Chronic (8) Morbid obesity with BMI of 45.0-49.9, adult: Status: Acute Overall: 40 year old female with PMH asthma type 1 diabetes mellitus, depression, hypertension, fibromyalgia, GERD, hyperlipidemia presented to ED on 03/23/2021 with nausea, vomiting, loose stools and significant shortness of breath admitted with hypoxic respiratory failure secondary to ARDS due to COVID- 19 pneumonia requiring HFNC 60 L 90%. #Acute hypoxic respiratory failure secondary to ARDS due to COVID-19 pneumonia #History of asthma #Type 1 diabetes mellitus #Echogenic lesion of right hepatic lobe-hemangioma vs malignancy #Deranged LFTs-likely secondary to COVID-19 pneumonia-improving #Patient reported family history of ?? arrhythmia-her brother and her sister is not doing well #Chronic pain syndrome and patient is on pain pump with morphine and bupivacaine and baclofen #Urine culture positive for gram-negative rods# #Morbid obesity BMI 45 -Down titrated HF NC to 60 L and 60% FiO2 over last 24 hours; recommended to come down to 40 to 45 L -Currently on HFNC 45 L 65% FiO2 and saturating 94% -Bacterial antigens negative, MRSA culture negative, blood cultures negative so far -Afebrile since admission, WBC 12 K, procalcitonin 0.41; BNP 41 -Elevated CRP, D-dimer,-monitor inflammatory markers every 48-72 hours -CT angiogram no evidence of pulmonary. Distal pulmonary arteries visualized. Diffuse hazy bilateral GGO's compatible with COVID-19 pneumonia. -S/p Actemra 03/23/2021 -Started on remdesivir 5-day total course 03/23/2021 and currently on dexamethasone 6 mg daily -Albuterol 1 puff every 6 hours scheduled; fluticasone 2 puffs twice daily -Urine culture positive for gram-negative rods-currently covered with Zosyn started 03/23/2021 -Elevated LFTs likely secondary to COVID-19 monitor ; currently improving-if c ontinues to worsen: Hold atorvastatin -abdominal ultrasound & CT imaging showed echogenic right hepatic lobe lesion- hemangioma versus malignancy; -AFP 2.0 -lesion is likely hemangioma-patient needs outpatient work-up -Sugars not well controlled controlled-currently on insulin Levemir 120 units twice daily and insulin aspart 35 units 3 times daily AC -Patient is +1.4 L; over last 24 hours-we will give Lasix 40 1 dose; continue to monitor input output and try to keep net even to negative -Lovenox 40 mg daily for DVT prophylaxis -Pantoprazole 40 mg at bedtime for GERD Condition; stable Prognosis: Guarded We will continue close respiratory monitoring in ICU for possible worsening of ARDS and progression of COVID-19 pneumonia. Currently saturating 92% on high flow 45 L and 65% but she is at high risk for intubation and mechanical ventilation. Urine cultures positive for gram-negative rods but she is covered with Zosyn and final identification and sensitivities pending. Medical condition explained to the patient and patient verbalized understanding and agreed with the plan Recommendations conveyed to hospitalist, RN, RT covering the patient Attestations Medical Necessity Statement*: Will need greater than 2 midnight stay for severe viral pneumonia requiring high flow oxygen Critical Care Time: Critical Care Time (min): 45 Other Attestations: The high probability of a clinically significant, sudden or life threatening deterioration of the patient's [respiratory, endocrine] system(s) required my full and direct attention, intervention and personal management. The critical care time is as shown. 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 [facility] Patient Type Established History Comprehensive Exam Comprehensive Medical Decision Making High Complexity Diagnoses Acute respiratory failure J96.01 Respiratory failure complication: hypoxia ARDS (adult respiratory distress syndrome) J80 Controlled diabetes mellitus type 1 without complications E10.9 Asthma J45.20 Asthma severity: mild Asthma persistence: intermittent Asthma complication type: uncomplicated GERD (gastroesophageal reflux disease) K21.9 Esophagitis presence: without esophagitis Suspected COVID-19 virus infection Z20.822 Chronic pain syndrome G89.4 Morbid obesity with BMI of 45.0-49.9, adult E66.01; Z68.42 Time Spent (min) 45
[2021-03-25 16:58] LABS: Glucose Point of Care 253 mg/dL (70-110)
[2021-03-25] MEDS: enoxaparin 40 mg/0.4 mL Syringe SUBCUT (17:17)
[2021-03-25] MEDS: remdesivir 100 MG in sodium chloride 0.9% (100 ml) 100 ML IV (17:17)
[2021-03-25] MEDS: atorvastatin 40 mg Tablet 20 MG PO (20:29)
[2021-03-25] MEDS: sennosides-docusate Tablet 1 TAB PO (20:29)
[2021-03-25] MEDS: pantoprazole DR 40 mg Tablet PO (20:29)
[2021-03-25] MEDS: aspirin 81 mg EC Tablet PO (20:29)
[2021-03-25 20:44] LABS: Glucose Point of Care 250 mg/dL (70-110)
[2021-03-26] VITALS (53 sets, daily range): BP systolic 115–154; BP diastolic 63–102; PULSE 58–78; RESP 13–29; TEMP 36.4–37.1; O2SAT 85–98; BMI 45.1
[2021-03-26] MEDS: albuterol 8 gm MDI 1 PUFF INHALATION ×4 (02:55→21:47)
[2021-03-26] MEDS: piperacillin-tazobactam 3.375 GM in sodium chloride 0.9% (plus) 50 ML IV ×3 (04:19→20:00)
[2021-03-26 05:01] LABS: Basophils % 0.1 %; Hematocrit 47.2 % (37.0-47.0); Hemoglobin 14.6 g/dL (11.5-15.3); Lymphocytes # 1.7 10^3/uL (0.8-4.8); Lymphocytes % 12.5 %; Mean Corpuscular HGB Conc 30.9 g/dL (30.0-36.0); Mean Corpuscular Hemoglobin 24.9 pg (28.0-34.0); Mean Corpuscular Volume 80.5 fL (81-99); Monocytes # 1.2 10^3/uL (0.2-0.9); Monocytes % 8.8 %; Neutrophils # 10.51 10^3/uL (1.8-7.7); Neutrophils % 77.6 %; Nucleated Red Blood Cells % 0 %; Platelet Count 313 10^3/cmm (130-400); Red Blood Count 5.86 10^6/uL (4.1-5.3); Red Cell Distribution Width 17.8 % (12.1-15.1); White Blood Count 13.6 10^3/uL (4.0-10.0)
[2021-03-26 05:23] LABS: Alanine Aminotransferase 32 U/L (0-33); Alkaline Phosphatase 189 IU/L (35-105); Anion Gap 14.4 (5-19); Aspartate Amino Transferase 48 U/L (0-32); Blood Urea Nitrogen 33 mg/dL (6-20); C Reactive Protein 27.5 mg/L (0.0-4.9); Calcium 8.2 mg/dL (8.5-10.5); Carbon Dioxide 27 mmol/L (22-29); Chloride 96 mmol/L (98-107); Globulin 4.2 g/dL (1.3-4.6); Glomerular Filtration Rate 79.4 mL/min (90-130); Glucose 187 mg/dL (65-115); Osmolality Calculated 288 mOsm/kg (285-295); Potassium 4.4 mmol/L (3.5-5.1); Sodium 133 mmol/L (136-145); Total Bilirubin 0.4 mg/dL (0.15-1.2); Total Protein 7.2 g/dL (6.6-8.7)
[2021-03-26] MEDS: atenolol 50 mg Tablet 25 MG PO (06:10)
[2021-03-26 08:17] LABS: Glucose Point of Care 186 mg/dL (70-110)
[2021-03-26] MEDS: dexamethasone 4 mg/mL INJ 6 MG IVP (08:48)
[2021-03-26] MEDS: duloxetine 20 mg Capsule 40 MG PO (08:49)
[2021-03-26] MEDS: baclofen 10 mg Tablet PO (08:49)
[2021-03-26] MEDS: sennosides-docusate Tablet 1 TAB PO ×2 (08:49→17:29)
[2021-03-26] MEDS: cetirizine 10 mg Tablet PO (08:49)
--- NOTE | 2021-03-26 09:12 | PC.CHAP ---
Pastoral Care Encounter/Spiritual Assessment Type of Contact [] Declined claims adjustor visit [] Patient/Family/Request visit [] Outpatient visit [] Follow-up visit [] Physician referral [] Code/Alert [x] Routine visit [] Staff referral [] Actively dying [x] Patient sleeping [] Family support [] [] Out of room [] Palliative care [] [] Receiving care in room [] Pre-surgical visit [] Trauma [] Long length of stay [x] ICU visit [] Other: Relational/Emotional Strength [] Patient feels connected with others/family/visitors/staff [] Distress [] Loneliness/isolation [] Abandonment Spirituality of Patient [] Person of Barbara [] Attends Faith of their Barbara [] Believes in Prayer [] Reads Bible or Buddhist materials [] There are Spiritual issues to be addressed 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 [x] Prayer [] Active listening [] Non-anxious presence [] Spiritual/emotional support [] Crisis/trauma care [] Spiritual counseling [] Bereavement support [] Provided bereavement packet [] Provided Bible/devotional materials [] Provided toy/stuffed animal, coloring book to patient or family member [] Provided Communion [] Anointing/[place] [] Salvation [x] Completed spiritual assessment [] Other: Impact on Illness or Injury [] Angry [] Fearful [] Anxious [] Often cries [] Exhaustion [] Unable to work [] Unable to attend gnosticist [] Unable to walk/stand [] Unable to read [] Unable to drive [] Unable to eat/drink [] Unable to sleep [] Unable to be with family [] Patient intubated [] Other: Summary Time spent with patient
[2021-03-26 11:56] LABS: ABG PCO2 40.2 mmHg (35-45); ABG PH Result 7.46 (7.35-7.45); Arterial Blood Gas Hematocrit 46.3 % (37-47); Base Excess ABG 4.6 mmol/L (-2.0-2.0); Blood Gas Allen Test Pos; Blood Gas Operator Identificat CAK; Blood Gas Sample Site Radial, left; Blood Gas Sample Type Arterial; HCO3 ABG 28.8 mmol/L (22-26); Oxygen Device HAG; PO2 ABG 61.7 mmHg (80.0-100.0)
[2021-03-26 12:03] LABS: Glucose Point of Care 166 mg/dL (70-110)
[2021-03-26] MEDS: baclofen 10 mg Tablet 5 MG PO ×2 (14:36→20:01)
[2021-03-26] MEDS: ondansetron 2 mg/ML SDV 2 mL 4 MG IVP (14:50)
--- NOTE | 2021-03-26 15:14 | P.PN_ITS ---
Subjective Subjective: Interval history: Hedy was seen earlier today by the hook and eye machine operator. She denies any complaints but seems distant and somewhat spacey during my interview. Medications: Reviewed: Yes Vitals/I&O/Wt Last Vital Signs Temp 98.0 F 03/26/21 12:00 Pulse 78 03/26/21 14:48 Resp 20 H 03/26/21 14:48 BP 132/69 03/26/21 14:00 Pulse Ox 89 L 03/26/21 14:48 03/26/21 03/26/21 03/26/21 06:59 14:59 22:59 Intake Total 50 / 1150 650 / 650 Output Total 900 / 2600 Balance -850 / -1450 650 / 650 Weight last 48 hrs Weight 142.882 kg Weight 142.882 kg Physical Exam Narrative: EXAM NARRATIVE: General exam no respiratory distress. Slow on some of the responses. Not sure of the month. Neck supple no lymphadenopathy thyromegaly Cardiovascular regular rate and rhythm without murmur Lungs scattered crackles Abdomen is soft nontender positive bowel sounds Extremities no cyanosis clubbing or edema Neurologic: Mildly confused but no evidence of any focal deficits. Urinary Catheter Management^: Matthews: Cath Placed During This Visit: yes Reason for Continuing Indwelling Catheter: Accurate Measurement of Urinary Output in Critically Ill Patients Urinary Catheter Date of Insertion: 03/23/21 Urinary Catheter Time of Insertion: 16:47 Data : 03/26/21 04:06 03/26/21 04:06 Micro: Microbiology 03/23/21 17:30 Urine Culture - Final Urine,Clean Catch Klebsiella oxytoca A&P Assessment and plan (1) Suspected COVID-19 virus infection: History, exam, and ancillary testing to date very consistent with COVID-19 pneumonia. PCR has come back positive today. Continue remdesivir Continue dexamethasone 6 mg IV every 24 hours 1 dose of Tocilizumab given 03/23 Continue empiric Zosyn Blood cultures negative to date MRSA PCR negative. Bacterial antigen panel negative. High flow oxygen wean as tolerated Appreciate pulmonary consultation May be slowly improving Critical care has reduced her baclofen which may help her mild confusion. ABG was checked today and no CO2 retention. Status: Acute (2) Acute respiratory failure: Status: Acute Qualifiers: Respiratory failure complication: hypoxia Qualified Code(s): J96.01 - Acute respiratory failure with hypoxia (3) Asthma: No evidence of exacerbation currently. Continue pulmonary toilet Status: Chronic Qualifiers: Asthma severity: mild Asthma persistence: intermittent Asthma complication type: uncomplicated Qualified Code(s): J45.20 - Mild intermittent asthma, uncomplicated Additional A&P Information Diabetes mellitus. Insulin regimen initiated. Short acting insulin increase slightly. Obesity. TSH checked and normal Transaminitis. Hepatitis panel negative. Abdominal ultrasound demonstrates likely cyst. Pulmonary checking AFP. Urine culture grew Klebsiella, which is sensitive to Zosyn. Chronic pain syndrome. Has pain pump with morphine and bupivacaine. This will continue currently. Multiple other medical problems as outlined in the medical history Full code Lovenox for DVT prophylaxis Attestations Medical Necessity Statement*: Needs continued hospitalization for supportive care, dexamethasone secondary to severe COVID-19 pneumonia. 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
--- NOTE | 2021-03-26 16:00 | PC.NURSE ---
Bed bath given by Aleks Chauhan RN and Shauna Maxwell. Marky from PT came in at the end of her bath to stand her up and step toward the head of the bed a few steps, so we straightened her sheets at that time. Patient tolerated bath fair.
[2021-03-26 16:47] LABS: Glucose Point of Care 129 mg/dL (70-110)
[2021-03-26] MEDS: enoxaparin 40 mg/0.4 mL Syringe SUBCUT (17:29)
[2021-03-26] MEDS: remdesivir 100 MG in sodium chloride 0.9% (100 ml) 100 ML IV (17:58)
[2021-03-26 19:40] LABS: Glucose Point of Care 106 mg/dL (70-110)
[2021-03-26] MEDS: pantoprazole DR 40 mg Tablet PO (20:00)
[2021-03-26] MEDS: aspirin 81 mg EC Tablet PO (20:00)
[2021-03-26] MEDS: atorvastatin 40 mg Tablet 20 MG PO (20:00)
--- NOTE | 2021-03-26 22:26 | PM.PN ---
Subjective Subjective: Interval history: Patient seen at bedside today morning and evening rounds Morning she was very drowsy-ABG did not show any hypercapnia; cutdown baclofen to 5 mg 3 times daily; evening she appeared more awake She is on 40 L and 60% HFNC saturating 88 to 90% Appeared comfortable Continue BiPAP at night Medications: Reviewed: Yes Vitals/I&O/Wt Last Vital Signs Temp 98.0 F 03/26/21 20:00 Pulse 62 03/26/21 22:00 Resp 18 03/26/21 22:00 BP 130/87 03/26/21 22:00 Pulse Ox 85 L 03/26/21 22:00 03/26/21 03/26/21 03/26/21 06:59 14:59 22:59 Intake Total 50 / 1150 650 / 650 650 / 1300 Output Total 900 / 2600 Balance -850 / -1450 650 / 650 650 / 1300 Weight last 48 hrs Weight 315 lb Weight 315 lb Physical Exam Narrative: EXAM NARRATIVE: General: alert, NAD HEENT: conj clear, EOMI, PERRL, mmm, Neck: supple, no meningismus Heme: no cervical LAP Pulmonary: Bibasilar crepitations Cardiovascular: rrr, nl s1s2, no mrg Abdomen: soft, nt, nd, no r/g, bs+ Extremities: pulses are 1+ pitting pedal edema, no c/c : no CVA tenderness Skin: intact, no rash MSK: no back or neck pain Neurologic: grossly intact Urinary Catheter Management^: Matthews: Cath Placed During This Visit: yes Reason for Continuing Indwelling Catheter: Accurate Measurement of Urinary Output in Critically Ill Patients Urinary Catheter Date of Insertion: 03/23/21 Urinary Catheter Time of Insertion: 16:47 Data : 03/26/21 04:06 03/26/21 04:06 Other Labs: Laboratory Results WBC 13.6 10^3/uL (4.0-10.0) H 03/26/21 04:06 RBC 5.86 10^6/uL (4.1-5.3) H 03/26/21 04:06 Hgb 14.6 g/dL (11.5-15.3) 03/26/21 04:06 Hct 47.2 % (37.0-47.0) H 03/26/21 04:06 MCV 80.5 fL (81-99) L 03/26/21 04:06 MCH 24.9 pg (28.0-34.0) L 03/26/21 04:06 MCHC 30.9 g/dL (30.0-36.0) 03/26/21 04:06 RDW 17.8 % (12.1-15.1) H 03/26/21 04:06 Plt Count 313 10^3/cmm (130-400) 03/26/21 04:06 MPV 11.0 fL (7.4-10.4) H 03/26/21 04:06 Neut % (Auto) 77.6 % 03/26/21 04:06 Lymph % (Auto) 12.5 % 03/26/21 04:06 [place] % (Auto) 8.8 % 03/26/21 04:06 Eos % (Auto) 0.0 % 03/26/21 04:06 Baso % (Auto) 0.1 % 03/26/21 04:06 Neut # (Auto) 10.51 10^3/uL (1.8-7.7) H 03/26/21 04:06 Lymph # (Auto) 1.7 10^3/uL (0.8-4.8) 03/26/21 04:06 [place] # (Auto) 1.2 10^3/uL (0.2-0.9) H 03/26/21 04:06 Eos # (Auto) 0.0 10^3/uL (0.0-0.8) 03/26/21 04:06 Baso # (Auto) 0.0 10^3/uL (0.0-0.1) 03/26/21 04:06 Nucleated RBC % (auto) 0 % 03/26/21 04:06 Nucleated RBCs # 0.0 /100WBC 03/26/21 04:06 PT 13.40 SECONDS (12.1-14.9) 03/23/21 07:43 INR 0.99 (0.8-1.2) 03/23/21 07:43 APTT 34.2 SECONDS (23.9-36.7) 03/23/21 07:43 D-Dimer 1.31 ug/mIFEU (0-0.59) H 03/24/21 06:08 Specimen Type Arterial 03/26/21 11:45 Sample Site Radial, left 03/26/21 11:45 ABG pH 7.46 (7.35-7.45) H 03/26/21 11:45 ABG pCO2 40.2 mmHg (35-45) 03/26/21 11:45 ABG pO2 61.7 mmHg (80.0-100.0) L 03/26/21 11:45 ABG HCO3 28.8 mmol/L (22-26) H 03/26/21 11:45 ABG O2 Saturation 94.1 03/23/21 07:40 ABG Base Excess 4.6 mmol/L (-2.0-2.0) H 03/26/21 11:45 Alvin Test Pos 03/26/21 11:45 A-a O2 Gradient 78.2 mmHg (5-10) H 03/23/21 07:40 Hematocrit 46.3 % (37-47) 03/26/21 11:45 Hgb O2 Saturation 92.9 % (95-100) L 03/23/21 07:40 Carboxyhemoglobin 1.2 %THgb (0.4-20.1) 03/23/21 07:40 Methemoglobin 0.1 % (0.4-1.5) L 03/23/21 07:40 Total Hemoglobin 14.1 g/dL (12-16) 03/23/21 07:40 Sodium 133.0 mmol/L (131-143) 03/23/21 07:40 Potassium 4.3 mmol/L (3.5-5.0) 03/23/21 07:40 Glucose 364.0 mg/dL (70-115) H 03/23/21 07:40 Ionized Calcium 1.1 mmol/L (1.1-1.4) 03/23/21 07:40 O2 Delivery Device Hag 03/26/21 11:45 O2 Liters/Min 15.0 % 03/23/21 07:40 FiO2 70.0 % 03/26/21 11:45 Color Expert ID Cak 03/26/21 11:45 Sodium 133 mmol/L (136-145) L 03/26/21 04:06 Potassium 4.4 mmol/L (3.5-5.1) 03/26/21 04:06 Chloride 96 mmol/L (98-107) L 03/26/21 04:06 Carbon Dioxide 27 mmol/L (22-29) 03/26/21 04:06 Anion Gap 14.4 (5-19) 03/26/21 04:06 BUN 33 mg/dL (6-20) H 03/26/21 04:06 Creatinine 0.8 mg/dL (0.5-0.9) 03/26/21 04:06 GFR Calculation 79.4 mL/min (90-130) L 03/26/21 04:06 Glucose 187 mg/dL (65-115) H 03/26/21 04:06 POC Glucose 106 mg/dL (70-110) 03/26/21 19:36 Estimat Average Glucose 324 03/23/21 07:43 Hemoglobin A1c 12.9 % (4.0-6.0) H 03/23/21 07:43 Calculated Osmolality 288 mOsm/kg (285-295) 03/26/21 04:06 Lactic Acid 2.0 mmol/L (0.5-2.2) 03/23/21 07:43 Calcium 8.2 mg/dL (8.5-10.5) L 03/26/21 04:06 Magnesium 2.1 mg/dL (1.7-2.3) 03/24/21 06:08 Total Bilirubin 0.4 mg/dL (0.15-1.2) 03/26/21 04:06 AST 48 U/L (0-32) H 03/26/21 04:06 ALT 32 U/L (0-33) 03/26/21 04:06 Alkaline Phosphatase 189 IU/L (35-105) H 03/26/21 04:06 C-Reactive Protein 27.5 mg/L (0.0-4.9) H 03/26/21 04:06 NT-Pro-B Natriuret Pep 53 pg/mL (0-125) 03/23/21 07:43 NT-Pro-B Natriuret Pep Cancelled 03/23/21 07:43 Total Protein 7.2 g/dL (6.6-8.7) 03/26/21 04:06 Albumin 3.0 g/dL (3.5-5.2) L 03/26/21 04:06 Globulin 4.2 g/dL (1.3-4.6) 03/26/21 04:06 Tumor Marker AFP 2.0 ng/mL (0-8.3) 03/25/21 04:51 Procalcitonin 0.41 ng/mL (0-0.5) 03/23/21 07:43 TSH 0.71 uIU/mL (0.27-4.20) 03/23/21 07:43 Urine Color Yellow (Yellow) 03/23/21 17:30 Urine Appearance Cloudy (CLEAR) 03/23/21 17:30 Urine pH 5 (5-7) 03/23/21 17:30 Ur Specific [place] 1.010 (1.005-1.030) 03/23/21 17:30 Urine Protein Neg (Negative) 03/23/21 17:30 Urine Glucose (UA) 4+ (Normal) H 03/23/21 17:30 Urine Ketones 2+ (Negative) H 03/23/21 17:30 Urine Blood Neg (Negative) 03/23/21 17:30 Urine Nitrate Positive (Negative) H 03/23/21 17:30 Urine Bilirubin Neg (Negative) 03/23/21 17:30 Urine Urobilinogen Norm mg/dL (Negative) 03/23/21 17:30 Ur Leukocyte Esterase Negative (Negative) 03/23/21 17:30 Urine RBC None /hpf (0-2) 03/23/21 17:30 Urine WBC 10-15 /hpf (0-5) H 03/23/21 17:30 Ur Squamous Epith Cells 0-4 /hpf (0-5) H 03/23/21 17:30 Amorphous Sediment Not Reportable 03/23/21 17:30 Urine Bacteria 1+ /hpf (NONE) H 03/23/21 17:30 Urine Yeast 3+ /hpf H 03/23/21 17:30 Nasal/Oral COVID-19 PCR Detected H 03/23/21 09:57 Hepatitis A IgM Ab Non-reactive (Nonreactive) 03/23/21 07:43 Hep Bs Antigen Non-reactive (Nonreactive) 03/23/21 07:43 Hep B Core IgM Ab Non-reactive (Nonreactive) 03/23/21 07:43 Hepatitis C Antibody Non-reactive (Nonreactive) 03/23/21 07:43 SARS-CoV-2 Ag (Rapid) Negative (Negative) 03/23/21 07:51 Impressions Chest X-Ray 03/23/21 07:33 IMPRESSION: No prior chest films. Likely pneumonitis unknown chronicity. Chest CTA 03/23/21 12:25 IMPRESSION: 1. No evidence of pulmonary embolus considering limitations. Distal pulmonary arteries not well evaluated due to breathing artifact and body habitus. 2. Shallow inspiration. Diffuse hazy bilateral groundglass infiltrates compatible with COVID19 pneumonia. 3. No mediastinal or hilar lymphadenopathy. 4. Partially evaluated diffuse heterogeneity throughout the right hepatic lobe. This is indeterminant and recommend contrast-enhanced CT abdomen pelvis or ultrasound in further evaluation. Metastatic disease not excluded. Notified Isrrael Noble MD at 03/23/2021 4:12 PM. Abdomen Ultrasound 03/24/21 04:00 IMPRESSION: Technically difficult examination 1. Hepatomegaly with diffuse fatty infiltration. 2. Diffuse hepatic heterogeneity not well evaluated due to body habitus. Recommend further evaluation with contrast-enhanced CT abdomen pelvis liver protocol. 3. Echogenic lesion measuring 2.8 x 2.5 x 2.8 cm with suspicious thin hypoechoic halo. Differential considerations include cavernous hemangioma versus metastatic disease or liver neoplasm. Recommend further evaluation of the liver with contrast-enhanced CT abdomen pelvis with liver protocol. 4. Normal gallbladder and common bile duct. 5. No hydronephrosis in right kidney. Micro: Microbiology 03/23/21 17:30 Urine Culture - Final Urine,Clean Catch Klebsiella oxytoca A&P Assessment and plan (1) Acute respiratory failure: Status: Acute Qualifiers: Respiratory failure complication: hypoxia Qualified Code(s): J96.01 - Acute respiratory failure with hypoxia (2) ARDS (adult respiratory distress syndrome): Status: Acute (3) Controlled diabetes mellitus type 1 without complications: Status: Chronic (4) Asthma: Status: Chronic Qualifiers: Asthma severity: mild Asthma persistence: intermittent Asthma complication type: uncomplicated Qualified Code(s): J45.20 - Mild intermittent asthma, uncomplicated (5) GERD (gastroesophageal reflux disease): Status: Chronic Qualifiers: Esophagitis presence: without esophagitis Qualified Code(s): K21.9 - Gastro-esophageal reflux disease without esophagitis (6) Suspected COVID-19 virus infection: Status: Acute (7) Chronic pain syndrome: Status: Chronic (8) Morbid obesity with BMI of 45.0-49.9, adult: Status: Acute Overall: 40 year old female with PMH asthma type 1 diabetes mellitus, depression, hypertension, fibromyalgia, GERD, hyperlipidemia presented to ED on 03/23/2021 with nausea, vomiting, loose stools and significant shortness of breath admitted with hypoxic respiratory failure secondary to ARDS due to COVID-19 pneumonia requiring HFNC 40 L 60% #Acute hypoxic respiratory failure secondary to ARDS due to COVID-19 pneumonia #History of asthma #Type 1 diabetes mellitus #Echogenic lesion of right hepatic lobe-hemangioma vs malignancy #Deranged LFTs-likely secondary to COVID-19 pneumonia-improving #Patient reported family history of ?? arrhythmia-her brother and her sister is not doing well #Chronic pain syndrome and patient is on pain pump with morphine and bupivacaine and baclofen #Urine culture positive for gram-negative rods# #Morbid obesity BMI 45 -Down titrated HF NC to 40 L 60% -Appears clinically stable and improving -Bacterial antigens negative, MRSA culture negative, blood cultures negative so far -Afebrile since admission, WBC 12 K, procalcitonin 0.41; BNP 41 -Elevated CRP, D-dimer,-monitor inflammatory markers every 48-72 hours -CT angiogram no evidence of pulmonary embolism. Distal pulmonary arteries visualized. Diffuse hazy bilateral GGO's compatible with COVID-19 pneumonia. -S/p Actemra 03/23/2021 -Started on remdesivir 5-day total course 03/23/2021 and currently on dexamethasone 6 mg daily -Albuterol 1 puff every 6 hours scheduled; fluticasone 2 puffs twice daily -Urine culture positive for Klebsiella sensitive to Zosyn-currently covered with Zosyn started 03/23/2021 -Elevated LFTs likely secondary to COVID-19 monitor ; currently improving-if continues to worsen: Hold atorvastatin -abdominal ultrasound & CT imaging showed echogenic right hepatic lobe lesion-hemangioma versus malignancy; -AFP 2.0 -lesion is likely hemangioma-patient needs outpatient work-up -Sugars not well controlled controlled-currently on insulin Levemir 120 units twice daily and insulin aspart 35 units 3 times daily AC -Patient is -1.4 L over last 24 hours-we'll monitor urine output today and give another dose of Lasix as needed -continue to monitor input output and try to keep net negative -Lovenox 40 mg daily for DVT prophylaxis -Pantoprazole 40 mg at bedtime for GERD Condition; stable and improving Prognosis: Guarded We will continue close respiratory monitoring in ICU for possible worsening of ARDS and progression of COVID-19 pneumonia. Currently saturating 92% on high flow 40 L 60% but she is at high risk for intubation and mechanical ventilation. Urine cultures positive for Klebsiella sensitive to Zosyn-already receiving Medical condition explained to the patient and patient verbalized understanding and agreed with the plan Recommendations conveyed to hospitalist, RN, RT covering the patient Attestations Medical Necessity Statement*: Will need greater than 2 midnight stay for severe viral pneumonia requiring high flow oxygen Time Spent in Patient Care: Greater than 35 minutes (>than 50% of time spent in counselling and/or direct pt care on unit). Critical Care Time: The high probability of a clinically significant, sudden or life threatening deterioration of the patient's [respiratory, infectious, endocrine, renal] system(s) required my full and direct attention, intervention and personal management. The critical care time is as shown. This time is in addition to time spent performing any reported procedures but includes the following: [x] Data and vital sign review and interpretation [x] Patient assessment, examination and intervention [x] Documentation [x] Medication orders and management Critical Care Time (min): 45 Other Attestations: The high probability of a clinically significant, sudden or life threatening deterioration of the patient's [respiratory, endocrine] system(s) required my full and direct attention, intervention and personal management. The critical care time is as shown. 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 Established History Comprehensive Exam Comprehensive Medical Decision Making High Complexity Diagnoses Acute respiratory failure J96.01 Respiratory failure complication: hypoxia ARDS (adult respiratory distress syndrome) J80 Controlled diabetes mellitus type 1 without complications E10.9 Asthma J45.20 Asthma severity: mild Asthma persistence: intermittent Asthma complication type: uncomplicated GERD (gastroesophageal reflux disease) K21.9 Esophagitis presence: without esophagitis Suspected COVID-19 virus infection Z20.822 Chronic pain syndrome G89.4 Morbid obesity with BMI of 45.0-49.9, adult E66.01; Z68.42 Time Spent (min) 45
--- NOTE | 2021-03-26 22:42 | PC.NURSE ---
Dr. Dey called to check on patient status. Updated on amount of urine output since approx 1730 is only 250 mL. Order given for lasix 20mg IVP x 1 dose.
[2021-03-26] MEDS: FUROsemide 10 mg/mL SDV 2mL 20 MG IVP (22:51)
[2021-03-27] VITALS (30 sets, daily range): BP systolic 101–170; BP diastolic 66–106; PULSE 59–78; RESP 14–26; TEMP 36.2–36.6; O2SAT 87–95
[2021-03-27] MEDS: piperacillin-tazobactam 3.375 GM in sodium chloride 0.9% (plus) 50 ML IV ×3 (03:52→20:23)
[2021-03-27 04:36] LABS: Basophils % 0.2 %; Hematocrit 49.8 % (37.0-47.0); Lymphocytes # 2.2 10^3/uL (0.8-4.8); Lymphocytes % 16.5 %; Mean Corpuscular HGB Conc 30.1 g/dL (30.0-36.0); Mean Corpuscular Hemoglobin 25.1 pg (28.0-34.0); Mean Corpuscular Volume 83.3 fL (81-99); Mean Platelet Volume 10.5 fL (7.4-10.4); Monocytes # 1.2 10^3/uL (0.2-0.9); Monocytes % 9.3 %; Neutrophils # 9.66 10^3/uL (1.8-7.7); Neutrophils % 72.9 %; Nucleated Red Blood Cells % 0 %; Platelet Count 287 10^3/cmm (130-400); Red Blood Count 5.98 10^6/uL (4.1-5.3); Red Cell Distribution Width 18.2 % (12.1-15.1); White Blood Count 13.3 10^3/uL (4.0-10.0)
[2021-03-27 04:57] LABS: Alanine Aminotransferase 33 U/L (0-33); Albumin Level 2.9 g/dL (3.5-5.2); Alkaline Phosphatase 167 IU/L (35-105); Aspartate Amino Transferase 47 U/L (0-32); Blood Urea Nitrogen 30 mg/dL (6-20); Calcium 8.1 mg/dL (8.5-10.5); Carbon Dioxide 29 mmol/L (22-29); Chloride 100 mmol/L (98-107); Glomerular Filtration Rate 92.7 mL/min (90-130); Glucose 90 mg/dL (65-115); Osmolality Calculated 292 mOsm/kg (285-295); Sodium 138 mmol/L (136-145); Total Bilirubin 0.5 mg/dL (0.15-1.2); Total Protein 6.9 g/dL (6.6-8.7)
[2021-03-27] MEDS: atenolol 50 mg Tablet 25 MG PO (05:47)
[2021-03-27 08:36] LABS: Glucose Point of Care 81 mg/dL (70-110)
[2021-03-27] MEDS: dexamethasone 4 mg/mL INJ 6 MG IVP (09:03)
[2021-03-27] MEDS: baclofen 10 mg Tablet 5 MG PO ×3 (10:00→20:24)
[2021-03-27] MEDS: duloxetine 20 mg Capsule 40 MG PO (10:00)
[2021-03-27] MEDS: cetirizine 10 mg Tablet PO (10:00)
[2021-03-27] MEDS: sennosides-docusate Tablet 1 TAB PO ×2 (10:01→17:13)
[2021-03-27 11:59] LABS: Glucose Point of Care 91 mg/dL (70-110)
[2021-03-27] MEDS: albuterol 8 gm MDI 1 PUFF INHALATION ×3 (12:13→20:35)
--- NOTE | 2021-03-27 13:47 | P.PN_ITS ---
Subjective Subjective: Interval history: Keily reports she feels a little bit better. No specific complaints today. Medications: Reviewed: Yes Vitals/I&O/Wt Last Vital Signs Temp 97.4 F L 03/27/21 08:00 Pulse 60 03/27/21 09:15 Resp 16 03/27/21 09:10 BP 140/96 03/27/21 08:00 Pulse Ox 88 L 03/27/21 09:10 03/26/21 03/27/21 03/27/21 22:59 06:59 14:59 Intake Total 650 / 1300 50 / 1350 139.167 / 139.167 Output Total 1350 / 1350 Balance 650 / 1300 -1300 / 0 139.167 / 139.167 Weight last 48 hrs Weight 143.97 kg Weight 142.882 kg Physical Exam Narrative: EXAM NARRATIVE: General exam no respiratory distress. Improved responsiveness. FiO2 down to 60%. Neck supple no lymphadenopathy thyromegaly Cardiovascular regular rate and rhythm without murmur Lungs scattered crackles Abdomen is soft nontender positive bowel sounds Extremities no cyanosis clubbing or edema Neurologic: No confusion or deficits today Urinary Catheter Management^: Matthews: Cath Placed During This Visit: yes Reason for Continuing Indwelling Catheter: Accurate Measurement of Urinary Output in Critically Ill Patients Urinary Catheter Date of Insertion: 03/23/21 Urinary Catheter Time of Insertion: 16:47 Data : 03/27/21 04:05 03/27/21 04:05 Micro: Microbiology 03/23/21 17:30 Urine Culture - Final Urine,Clean Catch Klebsiella oxytoca A&P Assessment and plan (1) Suspected COVID-19 virus infection: History, exam, and ancillary testing to date very consistent with COVID-19 pneumonia. PCR has come back positive Continue remdesivir Continue dexamethasone 6 mg IV every 24 hours 1 dose of Tocilizumab given 03/23 Continue empiric Zosyn Blood cultures negative to date MRSA PCR negative. Bacterial antigen panel negative. High flow oxygen wean as tolerated. She is now down to 60% FiO2 Appreciate pulmonary consultation May be slowly improving Critical care has reduced her baclofen which has helped her mild confusion. Status: Acute (2) Acute respiratory failure: Status: Acute Qualifiers: Respiratory failure complication: hypoxia Qualified Code(s): J96.01 - Acute respiratory failure with hypoxia (3) Asthma: No evidence of exacerbation currently. Continue pulmonary toilet Status: Chronic Qualifiers: Asthma severity: mild Asthma persistence: intermittent Asthma complication type: uncomplicated Qualified Code(s): J45.20 - Mild intermittent asthma, uncomplicated Additional A&P Information Diabetes mellitus. Insulin regimen initiated. Insulin with each meal, sliding scale superimposed Obesity. TSH checked and normal Transaminitis. Hepatitis panel negative. Abdominal ultrasound demonstrates likely cyst. AFP without significant elevation Urine culture grew Klebsiella, which is sensitive to Zosyn. Chronic pain syndrome. Has pain pump with morphine and bupivacaine. This will continue currently. Multiple other medical problems as outlined in the medical history Full code Lovenox for DVT prophylaxis Transfer out of ICU today. 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
[2021-03-27 17:10] LABS: Glucose Point of Care 80 mg/dL (70-110)
[2021-03-27] MEDS: enoxaparin 40 mg/0.4 mL Syringe SUBCUT (17:13)
[2021-03-27] MEDS: remdesivir 100 MG in sodium chloride 0.9% (100 ml) 100 ML IV (17:14)
--- NOTE | 2021-03-27 19:52 | PM.PN ---
Subjective Subjective: Interval history: - seen pt at bedside today - comfortable sitting out of bed to chair - appeared less confused - saturating 90-92% on hfnc 60% 40L - Labs and imaging reviewed Medications: Reviewed: Yes Vitals/I&O/Wt Last Vital Signs Temp 97.4 F L 03/27/21 08:00 Pulse 66 03/27/21 18:00 Resp 16 03/27/21 18:00 BP 101/72 03/27/21 18:00 Pulse Ox 92 03/27/21 18:00 03/27/21 03/27/21 03/27/21 06:59 14:59 22:59 Intake Total 50 / 1350 239.167 / 239.167 150 / 389.167 Output Total 1350 / 1350 450 / 450 Balance -1300 / 0 239.167 / 239.167 -300 / -60.833 Weight last 48 hrs Weight 317 lb 6.4 oz Weight 315 lb Physical Exam Narrative: EXAM NARRATIVE: General: alert, NAD HEENT: conj clear, EOMI, PERRL, mmm, Neck: supple, no meningismus Heme: no cervical LAP Pulmonary: Bibasilar crepitations Cardiovascular: rrr, nl s1s2, no mrg Abdomen: soft, nt, nd, no r/g, bs+ Extremities: pulses are 1+ pitting pedal edema, no c/c : no CVA tenderness Skin: intact, no rash MSK: no back or neck pain Neurologic: grossly intact Urinary Catheter Management^: Matthews: Cath Placed During This Visit: yes Reason for Continuing Indwelling Catheter: Accurate Measurement of Urinary Output in Critically Ill Patients Urinary Catheter Date of Insertion: 03/23/21 Urinary Catheter Time of Insertion: 16:47 Data : 03/28/21 04:58 03/28/21 04:58 Other Labs: Laboratory Results WBC 14.3 10^3/uL (4.0-10.0) H 03/28/21 04:58 RBC 5.93 10^6/uL (4.1-5.3) H 03/28/21 04:58 Hgb 14.9 g/dL (11.5-15.3) 03/28/21 04:58 Hct 48.3 % (37.0-47.0) H 03/28/21 04:58 MCV 81.5 fL (81-99) 03/28/21 04:58 MCH 25.1 pg (28.0-34.0) L 03/28/21 04:58 MCHC 30.8 g/dL (30.0-36.0) 03/28/21 04:58 RDW 17.6 % (12.1-15.1) H 03/28/21 04:58 Plt Count 296 10^3/cmm (130-400) 03/28/21 04:58 MPV 11.1 fL (7.4-10.4) H 03/28/21 04:58 Neut % (Auto) 68.7 % 03/28/21 04:58 Lymph % (Auto) 20.7 % 03/28/21 04:58 Carter % (Auto) 8.6 % 03/28/21 04:58 Eos % (Auto) 0.0 % 03/28/21 04:58 Baso % (Auto) 0.4 % 03/28/21 04:58 Neut # (Auto) 9.79 10^3/uL (1.8-7.7) H 03/28/21 04:58 Lymph # (Auto) 3.0 10^3/uL (0.8-4.8) 03/28/21 04:58 Carter # (Auto) 1.2 10^3/uL (0.2-0.9) H 03/28/21 04:58 Eos # (Auto) 0.0 10^3/uL (0.0-0.8) 03/28/21 04:58 Baso # (Auto) 0.1 10^3/uL (0.0-0.1) 03/28/21 04:58 Nucleated RBC % (auto) 0 % 03/28/21 04:58 Nucleated RBCs # 0.0 /100WBC 03/28/21 04:58 PT 13.40 SECONDS (12.1-14.9) 03/23/21 07:43 INR 0.99 (0.8-1.2) 03/23/21 07:43 APTT 34.2 SECONDS (23.9-36.7) 03/23/21 07:43 D-Dimer 1.84 ug/mIFEU (0-0.59) H 03/28/21 04:58 Specimen Type Arterial 03/26/21 11:45 Sample Site Radial, left 03/26/21 11:45 ABG pH 7.46 (7.35-7.45) H 03/26/21 11:45 ABG pCO2 40.2 mmHg (35-45) 03/26/21 11:45 ABG pO2 61.7 mmHg (80.0-100.0) L 03/26/21 11:45 ABG HCO3 28.8 mmol/L (22-26) H 03/26/21 11:45 ABG O2 Saturation 94.1 03/23/21 07:40 ABG Base Excess 4.6 mmol/L (-2.0-2.0) H 03/26/21 11:45 Alvin Test Pos 03/26/21 11:45 A-a O2 Gradient 78.2 mmHg (5-10) H 03/23/21 07:40 Hematocrit 46.3 % (37-47) 03/26/21 11:45 Hgb O2 Saturation 92.9 % (95-100) L 03/23/21 07:40 Carboxyhemoglobin 1.2 %THgb (0.4-20.1) 03/23/21 07:40 Methemoglobin 0.1 % (0.4-1.5) L 03/23/21 07:40 Total Hemoglobin 14.1 g/dL (12-16) 03/23/21 07:40 Sodium 133.0 mmol/L (131-143) 03/23/21 07:40 Potassium 4.3 mmol/L (3.5-5.0) 03/23/21 07:40 Glucose 364.0 mg/dL (70-115) H 03/23/21 07:40 Ionized Calcium 1.1 mmol/L (1.1-1.4) 03/23/21 07:40 O2 Delivery Device Hag 03/26/21 11:45 O2 Liters/Min 15.0 % 03/23/21 07:40 FiO2 70.0 % 03/26/21 11:45 Dental Equipment Technician ID Cak 03/26/21 11:45 Sodium 140 mmol/L (136-145) 03/28/21 04:58 Potassium 3.7 mmol/L (3.5-5.1) 03/28/21 04:58 Chloride 100 mmol/L (98-107) 03/28/21 04:58 Carbon Dioxide 30 mmol/L (22-29) H 03/28/21 04:58 Anion Gap 13.7 (5-19) 03/28/21 04:58 BUN 29 mg/dL (6-20) H 03/28/21 04:58 Creatinine 0.7 mg/dL (0.5-0.9) 03/28/21 04:58 GFR Calculation 92.7 mL/min (90-130) 03/28/21 04:58 Glucose 41 mg/dL (65-115) L 03/28/21 04:58 POC Glucose 65 mg/dL (70-110) L 03/27/21 20:28 Estimat Average Glucose 324 03/23/21 07:43 Hemoglobin A1c 12.9 % (4.0-6.0) H 03/23/21 07:43 Calculated Osmolality 293 mOsm/kg (285-295) 03/28/21 04:58 Lactic Acid 2.0 mmol/L (0.5-2.2) 03/23/21 07:43 Calcium 8.1 mg/dL (8.5-10.5) L 03/28/21 04:58 Magnesium 2.1 mg/dL (1.7-2.3) 03/24/21 06:08 Total Bilirubin 0.5 mg/dL (0.15-1.2) 03/28/21 04:58 AST 52 U/L (0-32) H 03/28/21 04:58 ALT 33 U/L (0-33) 03/28/21 04:58 Alkaline Phosphatase 155 IU/L (35-105) H 03/28/21 04:58 C-Reactive Protein 7.6 mg/L (0.0-4.9) H 03/28/21 04:58 NT-Pro-B Natriuret Pep 53 pg/mL (0-125) 03/23/21 07:43 NT-Pro-B Natriuret Pep Cancelled 03/23/21 07:43 Total Protein 6.8 g/dL (6.6-8.7) 03/28/21 04:58 Albumin 2.9 g/dL (3.5-5.2) L 03/28/21 04:58 Globulin 3.9 g/dL (1.3-4.6) 03/28/21 04:58 Tumor Marker AFP 2.0 ng/mL (0-8.3) 03/25/21 04:51 Procalcitonin 0.41 ng/mL (0-0.5) 03/23/21 07:43 TSH 0.71 uIU/mL (0.27-4.20) 03/23/21 07:43 Urine Color Yellow (Yellow) 03/23/21 17:30 Urine Appearance Cloudy (CLEAR) 03/23/21 17:30 Urine pH 5 (5-7) 03/23/21 17:30 Ur Specific [place] 1.010 (1.005-1.030) 03/23/21 17:30 Urine Protein Neg (Negative) 03/23/21 17:30 Urine Glucose (UA) 4+ (Normal) H 03/23/21 17:30 Urine Ketones 2+ (Negative) H 03/23/21 17:30 Urine Blood Neg (Negative) 03/23/21 17:30 Urine Nitrate Positive (Negative) H 03/23/21 17:30 Urine Bilirubin Neg (Negative) 03/23/21 17:30 Urine Urobilinogen Norm mg/dL (Negative) 03/23/21 17:30 Ur Leukocyte Esterase Negative (Negative) 03/23/21 17:30 Urine RBC None /hpf (0-2) 03/23/21 17:30 Urine WBC 10-15 /hpf (0-5) H 03/23/21 17:30 Ur Squamous Epith Cells 0-4 /hpf (0-5) H 03/23/21 17:30 Amorphous Sediment Not Reportable 03/23/21 17:30 Urine Bacteria 1+ /hpf (NONE) H 03/23/21 17:30 Urine Yeast 3+ /hpf H 03/23/21 17:30 Nasal/Oral COVID-19 PCR Detected H 03/23/21 09:57 Hepatitis A IgM Ab Non-reactive (Nonreactive) 03/23/21 07:43 Hep Bs Antigen Non-reactive (Nonreactive) 03/23/21 07:43 Hep B Core IgM Ab Non-reactive (Nonreactive) 03/23/21 07:43 Hepatitis C Antibody Non-reactive (Nonreactive) 03/23/21 07:43 SARS-CoV-2 Ag (Rapid) Negative (Negative) 03/23/21 07:51 Impressions Chest X-Ray 03/23/21 07:33 IMPRESSION: No prior chest films. Likely pneumonitis unknown chronicity. Chest CTA 03/23/21 12:25 IMPRESSION: 1. No evidence of pulmonary embolus considering limitations. Distal pulmonary arteries not well evaluated due to breathing artifact and body habitus. 2. Shallow inspiration. Diffuse hazy bilateral groundglass infiltrates compatible with COVID19 pneumonia. 3. No mediastinal or hilar lymphadenopathy. 4. Partially evaluated diffuse heterogeneity throughout the right hepatic lobe. This is indeterminant and recommend contrast-enhanced CT abdomen pelvis or ultrasound in further evaluation. Metastatic disease not excluded. Notified Isrrael Noble MD at 03/23/2021 4:12 PM. Abdomen Ultrasound 03/24/21 04:00 IMPRESSION: Technically difficult examination 1. Hepatomegaly with diffuse fatty infiltration. 2. Diffuse hepatic heterogeneity not well evaluated due to body habitus. Recommend further evaluation with contrast-enhanced CT abdomen pelvis liver protocol. 3. Echogenic lesion measuring 2.8 x 2.5 x 2.8 cm with suspicious thin hypoechoic halo. Differential considerations include cavernous hemangioma versus metastatic disease or liver neoplasm. Recommend further evaluation of the liver with contrast-enhanced CT abdomen pelvis with liver protocol. 4. Normal gallbladder and common bile duct. 5. No hydronephrosis in right kidney. A&P Assessment and plan (1) Acute respiratory failure: Status: Acute Qualifiers: Respiratory failure complication: hypoxia Qualified Code(s): J96.01 - Acute respiratory failure with hypoxia (2) ARDS (adult respiratory distress syndrome): Status: Acute (3) Controlled diabetes mellitus type 1 without complications: Status: Chronic (4) Asthma: Status: Chronic Qualifiers: Asthma severity: mild Asthma persistence: intermittent Asthma complication type: uncomplicated Qualified Code(s): J45.20 - Mild intermittent asthma, uncomplicated (5) GERD (gastroesophageal reflux disease): Status: Chronic Qualifiers: Esophagitis presence: without esophagitis Qualified Code(s): K21.9 - Gastro-esophageal reflux disease without esophagitis (6) Suspected COVID-19 virus infection: Status: Acute (7) Chronic pain syndrome: Status: Chronic (8) Morbid obesity with BMI of 45.0-49.9, adult: Status: Acute Overall: 40 year old female with PMH asthma type 1 diabetes mellitus, depression, hypertension, fibromyalgia, GERD, hyperlipidemia presented to ED on 03/23/2021 with nausea, vomiting, loose stools and significant shortness of breath admitted with hypoxic respiratory failure secondary to ARDS due to COVID-19 pneumonia requiring HFNC 40 L 60% #Acute hypoxic respiratory failure secondary to ARDS due to COVID-19 pneumonia #History of asthma #Type 1 diabetes mellitus #Echogenic lesion of right hepatic lobe-hemangioma vs malignancy #Deranged LFTs-likely secondary to COVID-19 pneumonia-improving #Patient reported family history of ?? arrhythmia-her brother and her sister is not doing well #Chronic pain syndrome and patient is on pain pump with morphine and bupivacaine and baclofen #Urine culture positive for gram-negative rods# #Morbid obesity BMI 45 -Down titrated HF NC to 40 L 60% -Appears clinically stable and improving -Bacterial antigens negative, MRSA culture negative, blood cultures negative so far -Afebrile since admission, WBC 12 K, procalcitonin 0.41; BNP 41 -Elevated CRP, D-dimer,-monitor inflammatory markers every 48-72 hours -CT angiogram no evidence of pulmonary embolism. Distal pulmonary arteries visualized. Diffuse hazy bilateral GGO's compatible with COVID-19 pneumonia. -S/p Actemra 03/23/2021 -Started on remdesivir 5-day total course 03/23/2021 and currently on dexamethasone 6 mg daily -Albuterol 1 puff every 6 hours scheduled; fluticasone 2 puffs twice daily -Urine culture positive for Klebsiella sensitive to Zosyn-currently covered with Zosyn started 03/23/2021 -Elevated LFTs likely secondary to COVID-19 monitor ; currently improving-if continues to worsen: Hold atorvastatin -abdominal ultrasound & CT imaging showed echogenic right hepatic lobe lesion-hemangioma versus malignancy; -AFP 2.0 -lesion is likely hemangioma-patient needs outpatient work-up -Sugars not well controlled controlled-currently on insulin Levemir 120 units twice daily and insulin aspart 35 units 3 times daily AC -Patient is -1.16 L over last 24 hours-we'll monitor urine output today and give another dose of Lasix as needed -continue to monitor input output and try to keep net negative -Lovenox 40 mg daily for DVT prophylaxis -Pantoprazole 40 mg at bedtime for GERD Condition; stable and improving Prognosis: Guarded Transfer : Out of ICU We will continue close respiratory monitoring in ICU for possible worsening of ARDS and progression of COVID-19 pneumonia. Currently saturating 92% on high flow 40 L 60% but she is at high risk for intubation and mechanical ventilation. Urine cultures positive for Klebsiella sensitive to Zosyn-already receiving Medical condition explained to the patient and patient verbalized understanding and agreed with the plan Recommendations conveyed to hospitalist, RN, RT covering the patient Attestations Medical Necessity Statement*: Will need greater than 2 midnight stay for severe viral pneumonia requiring high flow oxygen Time Spent in Patient Care: Greater than 35 minutes (>than 50% of time spent in counselling and/or direct pt care on unit). Critical Care Time: The high probability of a clinically significant, sudden or life threatening deterioration of the patient's [respiratory, infectious, endocrine, renal] system(s) required my full and direct attention, intervention and personal management. The critical care time is as shown. This time is in addition to time spent performing any reported procedures but includes the following: [x] Data and vital sign review and interpretation [x] Patient assessment, examination and intervention [x] Documentation [x] Medication orders and management Critical Care Time (min): 45 Coding Level of Care Code Established Pt Acute [facility] [place] Reo for Chg Fwd Patient Type Established History Comprehensive Exam Comprehensive Medical Decision Making High Complexity Diagnoses Acute respiratory failure J96.01 Respiratory failure complication: hypoxia ARDS (adult respiratory distress syndrome) J80 Controlled diabetes mellitus type 1 without complications E10.9 Asthma J45.20 Asthma severity: mild Asthma persistence: intermittent Asthma complication type: uncomplicated GERD (gastroesophageal reflux disease) K21.9 Esophagitis presence: without esophagitis Suspected COVID-19 virus infection Z20.822 Chronic pain syndrome G89.4 Morbid obesity with BMI of 45.0-49.9, adult E66.01; Z68.42
[2021-03-27] MEDS: aspirin 81 mg EC Tablet PO (20:24)
[2021-03-27] MEDS: atorvastatin 40 mg Tablet 20 MG PO (20:24)
[2021-03-27] MEDS: pantoprazole DR 40 mg Tablet PO (20:24)
[2021-03-27 20:39] LABS: Glucose Point of Care 65 mg/dL (70-110)
--- NOTE | 2021-03-27 20:46 | PC.NURSE ---
BS 65, physician called, VM left. Questioned given dose of 120 units of Levemir. Novolog non amended. Patient given Coke Cola. Patient to move to 2A Room 203. Reported to new nurse.
--- NOTE | 2021-03-27 21:18 | PC.NURSE ---
Patient to 2A at 2100, bedside report given, belongings with patient.
[2021-03-28] VITALS (15 sets, daily range): BP systolic 100–133; BP diastolic 44–81; PULSE 59–104; RESP 14–29; TEMP 36.4–37.2; O2SAT 9–93; BMI 45.5
[2021-03-28] MEDS: albuterol 8 gm MDI 1 PUFF INHALATION ×4 (03:08→20:21)
[2021-03-28] MEDS: piperacillin-tazobactam 3.375 GM in sodium chloride 0.9% (plus) 50 ML IV ×2 (05:11→14:23)
[2021-03-28] MEDS: atenolol 50 mg Tablet 25 MG PO (05:12)
[2021-03-28 07:12] LABS: D Dimer 1.84 ug/mIFEU (0-0.59)
[2021-03-28 07:27] LABS: Basophils # 0.1 10^3/uL (0.0-0.1); Basophils % 0.4 %; Hematocrit 48.3 % (37.0-47.0); Hemoglobin 14.9 g/dL (11.5-15.3); Lymphocytes % 20.7 %; Mean Corpuscular HGB Conc 30.8 g/dL (30.0-36.0); Mean Corpuscular Hemoglobin 25.1 pg (28.0-34.0); Mean Corpuscular Volume 81.5 fL (81-99); Mean Platelet Volume 11.1 fL (7.4-10.4); Monocytes # 1.2 10^3/uL (0.2-0.9); Monocytes % 8.6 %; Neutrophils # 9.79 10^3/uL (1.8-7.7); Neutrophils % 68.7 %; Nucleated Red Blood Cells % 0 %; Platelet Count 296 10^3/cmm (130-400); Red Blood Count 5.93 10^6/uL (4.1-5.3); Red Cell Distribution Width 17.6 % (12.1-15.1); White Blood Count 14.3 10^3/uL (4.0-10.0)
[2021-03-28 07:35] LABS: Alanine Aminotransferase 33 U/L (0-33); Albumin Level 2.9 g/dL (3.5-5.2); Alkaline Phosphatase 155 IU/L (35-105); Anion Gap 13.7 (5-19); Aspartate Amino Transferase 52 U/L (0-32); Blood Urea Nitrogen 29 mg/dL (6-20); C Reactive Protein 7.6 mg/L (0.0-4.9); Calcium 8.1 mg/dL (8.5-10.5); Carbon Dioxide 30 mmol/L (22-29); Chloride 100 mmol/L (98-107); Globulin 3.9 g/dL (1.3-4.6); Glomerular Filtration Rate 92.7 mL/min (90-130); Glucose 41 mg/dL (65-115); Osmolality Calculated 293 mOsm/kg (285-295); Potassium 3.7 mmol/L (3.5-5.1); Sodium 140 mmol/L (136-145); Total Bilirubin 0.5 mg/dL (0.15-1.2); Total Protein 6.8 g/dL (6.6-8.7)
--- NOTE | 2021-03-28 08:40 | PM.PN ---
Subjective Subjective: Interval history: Hospital follow-up on labs this morning, noted to be 40 on CMP. Continues to be on heated high flow, FiO2 of 60%, flow 50 L/min. Inflammatory markers trending down. Medications: Reviewed: Yes Vitals/I&O/Wt Last Vital Signs Temp 98.7 F 03/28/21 04:00 Pulse 66 03/28/21 07:54 Resp 17 03/28/21 07:50 BP 109/44 03/28/21 04:00 Pulse Ox 90 03/28/21 07:50 03/27/21 03/28/21 03/28/21 22:59 06:59 14:59 Intake Total 350 / 589.167 50 / 639.167 Output Total 1800 / 1800 Balance -1450 / -1210.833 50 / -1160.833 Weight last 48 hrs Weight 143.97 kg Weight 143.97 kg Physical Exam Narrative: EXAM NARRATIVE: GEN: Awake, alert and oriented, no acute distress CVS: S1S2 N RS: CTA B/L Abd: Soft, nt/nd , bs+ DOUGH CATCHER: no focal neuro deficits Urinary Catheter Management^: Matthews: Cath Placed During This Visit: yes Reason for Continuing Indwelling Catheter: Accurate Measurement of Urinary Output in Critically Ill Patients Urinary Catheter Date of Insertion: 03/23/21 Urinary Catheter Time of Insertion: 16:47 Data : 03/28/21 04:58 03/28/21 04:58 Micro: Microbiology 03/23/21 07:50 Blood Culture - Final Blood NO GROWTH AFTER 5 DAYS 03/23/21 07:43 Blood Culture - Final Blood NO GROWTH AFTER 5 DAYS A&P Assessment and plan (1) COVID-19: s/p remdesivir 03/23-03/27 Continue dexamethasone 6 mg IV every 24 hours 1 dose of Tocilizumab given 03/23, CRP down from 155--> 7 completed 5 days of empiric Zosyn, discontinue abx today Blood cultures negative to date MRSA PCR negative. Bacterial antigen panel negative. High flow oxygen wean as tolerated. She is now down to 60% FiO2 Appreciate pulmonary consultation May be slowly improving Status: Acute (2) Acute respiratory failure: Status: Acute Qualifiers: Respiratory failure complication: hypoxia Qualified Code(s): J96.01 - Acute respiratory failure with hypoxia (3) Asthma: No evidence of exacerbation currently. Continue pulmonary toilet Status: Chronic Qualifiers: Asthma severity: mild Asthma persistence: intermittent Asthma complication type: uncomplicated Qualified Code(s): J45.20 - Mild intermittent asthma, uncomplicated (4) ARDS (adult respiratory distress syndrome): Status: Acute Additional A&P Information Diabetes mellitus. Insulin regimen initiated. Hypoglycemic today, standing AC insulin discontinued, will continue Levemir and high dose sliding scale Obesity. TSH checked and normal Transaminitis. Hepatitis panel negative. Abdominal ultrasound demonstrates likely cyst. AFP without significant elevation Urine culture grew Klebsiella, which is sensitive to Zosyn. Chronic pain syndrome. Has pain pump with morphine and bupivacaine. This will continue currently. Multiple other medical problems as outlined in the medical history Full code Lovenox for DVT prophylaxis Attestations Medical Necessity Statement*: ongoing need for Hi Flow nsala can[place], continued attempts to wean down Coding Level of Care Code Acute Property Management Specialist for Chg Fwd Diagnoses COVID-19 U07.1 Acute respiratory failure J96.01 Respiratory failure complication: hypoxia Asthma J45.20 Asthma severity: mild Asthma persistence: intermittent Asthma complication type: uncomplicated ARDS (adult respiratory distress syndrome) J80
[2021-03-28] MEDS: cetirizine 10 mg Tablet PO (10:36)
[2021-03-28] MEDS: duloxetine 20 mg Capsule 40 MG PO (10:37)
[2021-03-28] MEDS: sennosides-docusate Tablet 1 TAB PO ×2 (10:37→18:35)
[2021-03-28] MEDS: dexamethasone 4 mg/mL INJ 6 MG IVP (11:58)
[2021-03-28] MEDS: ondansetron 2 mg/ML SDV 2 mL 4 MG IVP (11:59)
[2021-03-28] MEDS: baclofen 10 mg Tablet 5 MG PO ×3 (13:28→21:17)
[2021-03-28] MEDS: enoxaparin 40 mg/0.4 mL Syringe SUBCUT (18:36)
[2021-03-28] MEDS: aspirin 81 mg EC Tablet PO (21:16)
[2021-03-28] MEDS: pantoprazole DR 40 mg Tablet PO (21:17)
[2021-03-28] MEDS: atorvastatin 40 mg Tablet 20 MG PO (21:17)
[2021-03-29] VITALS (15 sets, daily range): BP systolic 124–147; BP diastolic 62–89; PULSE 61–88; RESP 16–22; TEMP 35.9–36.6; O2SAT 88–93
[2021-03-29] MEDS: piperacillin-tazobactam 3.375 GM in sodium chloride 0.9% (plus) 50 ML IV ×3 (02:18→17:35)
[2021-03-29] MEDS: atenolol 50 mg Tablet 25 MG PO (05:13)
[2021-03-29] MEDS: albuterol 8 gm MDI 1 PUFF INHALATION ×3 (08:14→20:42)
[2021-03-29] MEDS: baclofen 10 mg Tablet 5 MG PO ×3 (08:48→21:03)
[2021-03-29] MEDS: cetirizine 10 mg Tablet PO (08:48)
[2021-03-29] MEDS: sennosides-docusate Tablet 1 TAB PO ×2 (08:48→17:34)
[2021-03-29] MEDS: duloxetine 20 mg Capsule 40 MG PO (08:48)
[2021-03-29] MEDS: dexamethasone 4 mg/mL INJ 6 MG IVP (09:48)
[2021-03-29 12:27] LABS: Basophils % 0.2 %; Eosinophils % 0.3 %; Hematocrit 47.1 % (37.0-47.0); Hemoglobin 14.6 g/dL (11.5-15.3); Lymphocytes # 1.1 10^3/uL (0.8-4.8); Lymphocytes % 9.3 %; Mean Corpuscular Hemoglobin 25.3 pg (28.0-34.0); Mean Corpuscular Volume 81.5 fL (81-99); Mean Platelet Volume 10.8 fL (7.4-10.4); Monocytes # 0.6 10^3/uL (0.2-0.9); Monocytes % 5.2 %; Neutrophils # 10.05 10^3/uL (1.8-7.7); Neutrophils % 82.5 %; Nucleated Red Blood Cells % 0 %; Platelet Count 274 10^3/cmm (130-400); Red Blood Count 5.78 10^6/uL (4.1-5.3); Red Cell Distribution Width 17.3 % (12.1-15.1); White Blood Count 12.2 10^3/uL (4.0-10.0)
[2021-03-29 12:41] LABS: Alanine Aminotransferase 33 U/L (0-33); Albumin Level 2.8 g/dL (3.5-5.2); Alkaline Phosphatase 157 IU/L (35-105); Anion Gap 13.5 (5-19); Aspartate Amino Transferase 46 U/L (0-32); Blood Urea Nitrogen 20 mg/dL (6-20); Calcium 7.9 mg/dL (8.5-10.5); Carbon Dioxide 27 mmol/L (22-29); Chloride 100 mmol/L (98-107); Globulin 3.2 g/dL (1.3-4.6); Glomerular Filtration Rate 92.7 mL/min (90-130); Glucose 246 mg/dL (65-115); Magnesium 2.2 mg/dL (1.7-2.3); Osmolality Calculated 293 mOsm/kg (285-295); Potassium 4.5 mmol/L (3.5-5.1); Sodium 136 mmol/L (136-145); Total Bilirubin 0.5 mg/dL (0.15-1.2)
[2021-03-29 15:23] LABS: Glucose Point of Care 62 mg/dL (70-110)
[2021-03-29 15:23] LABS: Glucose Point of Care 177 mg/dL (70-110)
[2021-03-29 15:23] LABS: Glucose Point of Care 53 mg/dL (70-110)
[2021-03-29 15:23] LABS: Glucose Point of Care 100 mg/dL (70-110)
[2021-03-29 15:23] LABS: Glucose Point of Care 230 mg/dL (70-110)
[2021-03-29 15:23] LABS: Glucose Point of Care 94 mg/dL (70-110)
[2021-03-29 15:23] LABS: Glucose Point of Care 98 mg/dL (70-110)
[2021-03-29 16:26] LABS: Glucose Point of Care 365 mg/dL (70-110)
--- NOTE | 2021-03-29 16:54 | PM.PN ---
Subjective Subjective: Interval history: Patient was seen this morning, she is a bit teary, as she wants to be at home with her baby, but she knows that she needs to be here in the hospital, she tells me overall she is doing much better, remains afebrile overnight, is ambulating, with some shortness of breath but overall better, still on 70% FiO2 with 50 L Vitals/I&O/Wt Last Vital Signs Temp 97.4 F L 03/29/21 16:00 Pulse 64 03/29/21 16:00 Resp 18 03/29/21 16:00 BP 127/83 03/29/21 16:00 Pulse Ox 91 03/29/21 16:00 03/29/21 03/29/21 03/29/21 06:59 14:59 22:59 Intake Total 50 / 870 Output Total 400 / 400 Balance -350 / 470 Weight last 48 hrs Weight 150.593 kg Weight 143.97 kg Physical Exam Const: COMMON NORMALS: no acute distress and patient oriented x3 Resp: COMMON NORMALS: normal respiratory effort, No retractions, No use of accessory muscles and clear to auscultation bilaterally AUSCULTATION: clear to auscultation bilaterally Cardio: COMMON NORMALS: regular rate, regular rhythm, S1 normal heart sound present and S2 normal heart sound present RATE: regular rate RHYTHM: regular rhythm HEART SOUNDS: S1 normal heart sound present and S2 normal heart sound present GI: COMMON NORMALS: Normal to inspection, nondistended, normoactive bowel sounds present, Soft to palpation, non-tender, No hepatosplenomegaly present, no masses and no bruits PALPATION: Yes Soft to palpation and Yes No hepatosplenomegaly present Extremity: COMMON NORMALS: capillary refill normal, no clubbing, cyanosis or edema, no calf tenderness and no pedal edema Neuro: COMMON NORMALS: patient oriented x3 Psych: COMMON NORMALS: mental status grossly normal Urinary Catheter Management^: Matthews: Cath Placed During This Visit: yes Reason for Continuing Indwelling Catheter: Accurate Measurement of Urinary Output in Critically Ill Patients Urinary Catheter Date of Insertion: 03/23/21 Urinary Catheter Time of Insertion: 16:47 Data : 03/29/21 12:10 03/29/21 12:10 A&P Assessment and plan (1) COVID-19: s/p remdesivir 03/23-03/27 Continue dexamethasone 6 mg IV every 24 hours 1 dose of Tocilizumab given 03/23, CRP down from 155--> 7 completed 5 days of empiric Zosyn, discontinue abx today Blood cultures negative to date MRSA PCR negative. Bacterial antigen panel negative. High flow oxygen wean as tolerated. She is now down to 60% FiO2 Appreciate pulmonary consultation Is clinically improving Pulmonary toilet, incentive spirometer, flutter valve Wean oxygen as tolerated 1 dose of Lasix today If her oxygen requirements decreased, can prepare for discharge the next 24 to 48 hours Status: Acute (2) Acute respiratory failure: Status: Acute Qualifiers: Respiratory failure complication: hypoxia Qualified Code(s): J96.01 - Acute respiratory failure with hypoxia (3) Asthma: No evidence of exacerbation currently. Continue pulmonary toilet Status: Chronic Qualifiers: Asthma severity: mild Asthma persistence: intermittent Asthma complication type: uncomplicated Qualified Code(s): J45.20 - Mild intermittent asthma, uncomplicated (4) ARDS (adult respiratory distress syndrome): Status: Acute Additional A&P Information Diabetes mellitus. Had an episode of hypoglycemia, currently on Levemir 120 units twice daily, insulin sliding scale, NovoLog on hold Obesity. TSH checked and normal Transaminitis. Hepatitis panel negative. Abdominal ultrasound demonstrates likely cyst. AFP without significant elevation Urine culture grew Klebsiella, which is sensitive to Zosyn. Status post treatment. Chronic pain syndrome. Has pain pump with morphine and bupivacaine. This will continue currently. Multiple other medical problems as outlined in the medical history Full code Lovenox for DVT prophylaxis Attestations Medical Necessity Statement*: Patient requires hospitalization due to COVID-19 pneumonia Coding Level of Care Code Acute Traffic Enumerator for [facility] Diagnoses COVID-19 U07.1 Acute respiratory failure J96.01 Respiratory failure complication: hypoxia Asthma J45.20 Asthma severity: mild Asthma persistence: intermittent Asthma complication type: uncomplicated ARDS (adult respiratory distress syndrome) J80
[2021-03-29] MEDS: enoxaparin 40 mg/0.4 mL Syringe SUBCUT (17:35)
[2021-03-29] MEDS: FUROsemide 10 mg/mL SDV 2mL 20 MG IVP (17:37)
[2021-03-29] MEDS: ascorbic acid 500 mg Tablet PO (19:26)
[2021-03-29] MEDS: atorvastatin 40 mg Tablet 20 MG PO (21:03)
[2021-03-29] MEDS: aspirin 81 mg EC Tablet PO (21:04)
[2021-03-29] MEDS: pantoprazole DR 40 mg Tablet PO (21:04)
[2021-03-30] VITALS (16 sets, daily range): BP systolic 107–138; BP diastolic 66–101; PULSE 59–80; RESP 11–26; TEMP 36.6–36.8; O2SAT 86–94
[2021-03-30] MEDS: piperacillin-tazobactam 3.375 GM in sodium chloride 0.9% (plus) 50 ML IV (02:26)
[2021-03-30] MEDS: albuterol 8 gm MDI 1 PUFF INHALATION ×3 (02:30→20:30)
[2021-03-30] MEDS: atenolol 50 mg Tablet 25 MG PO (06:11)
[2021-03-30 06:15] LABS: Basophils % 0.3 %; Eosinophils # 0.1 10^3/uL (0.0-0.8); Eosinophils % 1.1 %; Hematocrit 46.3 % (37.0-47.0); Hemoglobin 14.6 g/dL (11.5-15.3); Lymphocytes % 18.9 %; Mean Corpuscular HGB Conc 31.5 g/dL (30.0-36.0); Mean Corpuscular Hemoglobin 25.5 pg (28.0-34.0); Mean Corpuscular Volume 80.8 fL (81-99); Mean Platelet Volume 10.8 fL (7.4-10.4); Monocytes # 0.7 10^3/uL (0.2-0.9); Monocytes % 6.9 %; Neutrophils # 7.58 10^3/uL (1.8-7.7); Neutrophils % 70.6 %; Nucleated Red Blood Cells % 0 %; Platelet Count 269 10^3/cmm (130-400); Red Blood Count 5.73 10^6/uL (4.1-5.3); Red Cell Distribution Width 17.6 % (12.1-15.1); White Blood Count 10.7 10^3/uL (4.0-10.0)
[2021-03-30 06:59] LABS: Alanine Aminotransferase 33 U/L (0-33); Alkaline Phosphatase 145 IU/L (35-105); Aspartate Amino Transferase 36 U/L (0-32); Blood Urea Nitrogen 16 mg/dL (6-20); C Reactive Protein 4.1 mg/L (0.0-4.9); Calcium 8.1 mg/dL (8.5-10.5); Carbon Dioxide 29 mmol/L (22-29); Chloride 100 mmol/L (98-107); Globulin 3.3 g/dL (1.3-4.6); Glomerular Filtration Rate 110.7 mL/min (90-130); Glucose 68 mg/dL (65-115); Osmolality Calculated 285 mOsm/kg (285-295); Phosphorus 3.2 mg/dL (2.5-4.5); Sodium 138 mmol/L (136-145); Total Bilirubin 0.5 mg/dL (0.15-1.2); Total Protein 6.3 g/dL (6.6-8.7)
--- NOTE | 2021-03-30 07:00 | XRR_ITS ---
PROCEDURE INFORMATION: Exam: XR Chest Exam date and time: 03/30/2021 7:00 AM Age: 40 years old Clinical indication: Dyspnea; Additional info: SOB TECHNIQUE: Imaging protocol: XR of the chest. Views: 1 view. COMPARISON: CT angio chest PE protcl [id number] 03/23/2021 2:17 PM FINDINGS: Lungs: Hypoinflation. Bilateral interstitial/airspace disease, in a pattern of bronchopneumonia, with COVID-19 pneumonitis included in the differential diagnosis. Pleural spaces: No significant pleural effusion. Heart/Mediastinum: No cardiomegaly. Bones/joints: Unremarkable. XR/XR chest 1V portable [id number] IMPRESSION: Bilateral interstitial/airspace disease, in a pattern of bronchopneumonia, with COVID-19 pneumonitis included in the differential diagnosis.
[2021-03-30 07:06] LABS: NT Pro B Type Natriuretic Pept 101 pg/mL (0-125); Procalcitonin 0.09 ng/mL (0-0.5)
[2021-03-30 09:29] LABS: Glucose Point of Care 128 mg/dL (70-110)
[2021-03-30 09:29] LABS: Glucose Point of Care 66 mg/dL (70-110)
[2021-03-30 09:29] LABS: Glucose Point of Care 551 mg/dL (70-110)
[2021-03-30 09:29] LABS: Glucose Point of Care 143 mg/dL (70-110)
[2021-03-30 09:29] LABS: Glucose Point of Care 81 mg/dL (70-110)
[2021-03-30 09:29] LABS: Glucose Point of Care 93 mg/dL (70-110)
[2021-03-30 09:29] LABS: Glucose Point of Care 259 mg/dL (70-110)
[2021-03-30 09:29] LABS: Glucose Point of Care 147 mg/dL (70-110)
[2021-03-30 09:29] LABS: Glucose Point of Care 214 mg/dL (70-110)
[2021-03-30] MEDS: duloxetine 20 mg Capsule 40 MG PO (10:03)
[2021-03-30] MEDS: baclofen 10 mg Tablet 5 MG PO ×3 (10:04→21:49)
[2021-03-30] MEDS: ascorbic acid 500 mg Tablet PO ×2 (10:05→17:45)
[2021-03-30] MEDS: zinc gluconate 50 mg Tablet PO (10:05)
[2021-03-30] MEDS: dexamethasone 4 mg/mL INJ 6 MG IVP (10:06)
[2021-03-30] MEDS: cetirizine 10 mg Tablet PO (10:06)
[2021-03-30] MEDS: sennosides-docusate Tablet 1 TAB PO ×2 (10:06→17:45)
[2021-03-30] MEDS: FUROsemide 10 mg/mL SDV 2mL 20 MG IVP (10:06)
--- NOTE | 2021-03-30 11:45 | P.PN_ITS ---
Subjective Subjective: Interval history: Patient was seen this morning, she sitting up to the side of bed, she tells me that she is ambulating without significant symptomatology, she is on 55 L and 75% fiO2, overall feeling better, she is wondering when she will improve enough to go home Vitals/I&O/Wt Last Vital Signs Temp 97.9 F 03/30/21 08:00 Pulse 72 03/30/21 08:52 Resp 24 H 03/30/21 08:52 BP 131/101 03/30/21 08:00 Pulse Ox 92 03/30/21 08:52 03/29/21 03/30/21 03/30/21 22:59 06:59 14:59 Intake Total 50 / 100 800 / 900 Output Total 1800 / 1800 1000 / 1000 Balance -1750 / -1700 800 / -900 -1000 / -1000 Weight last 48 hrs Weight 153.314 kg Weight 150.593 kg Physical Exam Const: COMMON NORMALS: no acute distress and patient oriented x3 Resp: COMMON NORMALS: normal respiratory effort, No retractions, No use of accessory muscles and clear to auscultation bilaterally AUSCULTATION: clear to auscultation bilaterally Cardio: COMMON NORMALS: regular rate, regular rhythm, S1 normal heart sound present and S2 normal heart sound present RATE: regular rate RHYTHM: regular rhythm HEART SOUNDS: S1 normal heart sound present and S2 normal heart sound present GI: COMMON NORMALS: Normal to inspection, nondistended, normoactive bowel sounds present, Soft to palpation, non-tender and No hepatosplenomegaly present PALPATION: Yes Soft to palpation and Yes No hepatosplenomegaly present Extremity: COMMON NORMALS: no pedal edema Neuro: COMMON NORMALS: patient oriented x3 Psych: COMMON NORMALS: mental status grossly normal Urinary Catheter Management^: Matthews: Cath Placed During This Visit: yes Reason for Continuing Indwelling Catheter: Other Urinary Catheter Date of Insertion: 03/23/21 Urinary Catheter Time of Insertion: 16:47 Data : 03/30/21 04:31 03/30/21 04:31 A&P Assessment and plan (1) COVID-19: s/p remdesivir 03/23-03/27 Continue dexamethasone 6 mg IV every 24 hours 1 dose of Tocilizumab given 03/23, completed 5 days of empiric Zosy Blood cultures negative to date MRSA PCR negative. Bacterial antigen panel negative. High flow oxygen wean as tolerated. She is up to 75% FiO2, on 55 L Appreciate pulmonary consultation Is clinically improving, although still has high oxygen requirements Pulmonary toilet, incentive spirometer, flutter valve Wean oxygen as tolerated 1 dose of Lasix today Given her persistent oxygen requirements, will do cardiac echo, one more dose of Lasix, start doxycycline 100 twice daily, will consider further imaging of the chest Status: Acute (2) Acute respiratory failure: Status: Acute Qualifiers: Respiratory failure complication: hypoxia Qualified Code(s): J96.01 - Acute respiratory failure with hypoxia (3) Asthma: No evidence of exacerbation currently. Continue pulmonary toilet Status: Chronic Qualifiers: Asthma severity: mild Asthma persistence: intermittent Asthma complication type: uncomplicated Qualified Code(s): J45.20 - Mild intermittent asthma, uncomplicated (4) ARDS (adult respiratory distress syndrome): Status: Acute Additional A&P Information Diabetes mellitus. Had an episode of hypoglycemia, currently on Levemir 120 units twice daily, insulin sliding scale, NovoLog on hold Obesity. TSH checked and normal Transaminitis. Hepatitis panel negative. Abdominal ultrasound demonstrates likely cyst. AFP without significant elevation Urine culture grew Klebsiella, which is sensitive to Zosyn. Status post treatment. Chronic pain syndrome. Has pain pump with morphine and bupivacaine. This will continue currently. Multiple other medical problems as outlined in the medical history Full code Lovenox for DVT prophylaxis Attestations Medical Necessity Statement*: Patient requires hospitalization for acute respiratory failure secondary COVID-19 pneumonia Coding Level of Care Code Acute Video Operator for [facility] Diagnoses COVID-19 U07.1 Acute respiratory failure J96.01 Respiratory failure complication: hypoxia Asthma J45.20 Asthma severity: mild Asthma persistence: intermittent Asthma complication type: uncomplicated ARDS (adult respiratory distress syndrome) J80
--- NOTE | 2021-03-30 11:49 | USCV_ITS ---
Keily Foley Age: 40 Gender: F : 1980 Exam Date: 03/30/2021 15:52 Ordering Phys: Cheng Manley MD Technologist: [place] [facility] [place]: [place]B COVID BP: 131 / 101 HR: 66 Rhythm: Sinus Technical Quality: Technically difficult study MEASUREMENTS (Male / Female) Normal Values 2D ECHO LV Diastolic Diameter PLAX 4.2 cm 4.2 - 5.9 / 3.9 - 5.3 cm LV Systolic Diameter PLAX 2.5 cm IVS Diastolic Thickness 1.2 cm 0.6 - 1.0 / 0.6 - 0.9 cm IVS Systolic Thickness 1.6 cm LVPW Diastolic Thickness 1.3 cm 0.6 - 1.0 / 0.6 - 0.9 cm LVPW Systolic Thickness 1.6 cm LVOT Diameter 2.1 cm LV Ejection Fraction 2D Teich 71.5 % LV Ejection Fraction MOD 2C 67.1 % LV Ejection Fraction 2C AL 66.9 % LA Diameter 3.2 cm LA Width 7.3 cm Aorta at Sinotubular Diameter 2.5 cm DOPPLER LVOT Peak Velocity 80.0 cm/s MV Area PHT 5.0 cm squared Mitral E to A Ratio 1.2 MV E' Velocity 92.0 cm/s Mitral E to LV E' Septal Ratio 15.4 TR Peak Velocity 136.0 cm/s TR Peak Gradient 7.4 mmHg TV Peak E Velocity 95.0 cm/s Right Atrial Pressure 3.0 mmHg Pulmonary Artery Systolic Pressu 10.4 mmHg FINDINGS Left Ventricle Normal left ventricular cavity size. Normal left ventricular systolic function. No regional wall motion abnormalities. Left ventricular ejection fraction is estimated at 60 %. Right Ventricle The right ventricle is normal in size and function. Right Atrium The right atrium is normal in size. Left Atrium The left atrium is normal in size. Mitral Valve Structurally normal mitral valve without significant stenosis or prolapse. There is no mitral regurgitation. Aortic Valve Structurally normal aortic valve without significant sclerosis or stenosis. There is no aortic regurgitation. Tricuspid Valve Structurally normal tricuspid valve without significant stenosis or regurgitation. Pulmonary artery systolic pressure is normal. Pulmonic Valve Structurally normal pulmonic valve without significant stenosis. There is no pulmonic regurgitation. Pericardium Normal pericardium without effusion. Aorta Normal ascending aorta dimension. CONCLUSIONS 1-Normal left ventricular cavity size. Normal left ventricular systolic function. No regional wall motion abnormalities. Left ventricular ejection fraction is estimated at 60 %. 2-There is no pericardial effusion. 3-No significant valve abnormalities. 4-Pulmonary artery systolic pressure is within normal limits. 5-There are no prior echocardiogram studies to compare. Derrick Rolle MD (Electronically Signed) Final Date: 30 March 2021 23:15 S
[2021-03-30 12:28] LABS: Glucose Point of Care 93 mg/dL (70-110)
[2021-03-30] MEDS: doxycycline 100 MG in sodium chloride 0.9% (plus) 100 ML IV (12:33)
[2021-03-30] MEDS: enoxaparin 40 mg/0.4 mL Syringe SUBCUT (17:45)
[2021-03-30] MEDS: atorvastatin 40 mg Tablet 20 MG PO (21:49)
[2021-03-30] MEDS: pantoprazole DR 40 mg Tablet PO (21:49)
[2021-03-30] MEDS: aspirin 81 mg EC Tablet PO (21:49)
[2021-03-31] VITALS (16 sets, daily range): BP systolic 129–153; BP diastolic 67–92; PULSE 60–107; RESP 17–20; TEMP 36.6–36.9; O2SAT 89–98
[2021-03-31] MEDS: doxycycline 100 MG in sodium chloride 0.9% (plus) 100 ML IV (00:06)
[2021-03-31] MEDS: atenolol 50 mg Tablet 25 MG PO (06:27)
[2021-03-31 07:18] LABS: Basophils % 0.1 %; Eosinophils # 0.2 10^3/uL (0.0-0.8); Eosinophils % 2.2 %; Hematocrit 47.3 % (37.0-47.0); Hemoglobin 14.4 g/dL (11.5-15.3); Lymphocytes # 1.5 10^3/uL (0.8-4.8); Lymphocytes % 16.6 %; Mean Corpuscular HGB Conc 30.4 g/dL (30.0-36.0); Mean Corpuscular Hemoglobin 25.1 pg (28.0-34.0); Mean Corpuscular Volume 82.4 fL (81-99); Mean Platelet Volume 11.1 fL (7.4-10.4); Monocytes # 0.7 10^3/uL (0.2-0.9); Monocytes % 7.7 %; Neutrophils # 6.33 10^3/uL (1.8-7.7); Neutrophils % 71.9 %; Nucleated Red Blood Cells % 0 %; Platelet Count 262 10^3/cmm (130-400); Red Blood Count 5.74 10^6/uL (4.1-5.3); Red Cell Distribution Width 17.8 % (12.1-15.1); White Blood Count 8.8 10^3/uL (4.0-10.0)
[2021-03-31 07:37] LABS: Alanine Aminotransferase 30 U/L (0-33); Albumin Level 2.9 g/dL (3.5-5.2); Alkaline Phosphatase 134 IU/L (35-105); Anion Gap 13.4 (5-19); Aspartate Amino Transferase 37 U/L (0-32); Blood Urea Nitrogen 20 mg/dL (6-20); C Reactive Protein 3.9 mg/L (0.0-4.9); Calcium 8.2 mg/dL (8.5-10.5); Carbon Dioxide 29 mmol/L (22-29); Chloride 101 mmol/L (98-107); Globulin 3.2 g/dL (1.3-4.6); Glomerular Filtration Rate 110.7 mL/min (90-130); Glucose 102 mg/dL (65-115); Magnesium 2.1 mg/dL (1.7-2.3); Osmolality Calculated 291 mOsm/kg (285-295); Phosphorus 3.5 mg/dL (2.5-4.5); Potassium 4.4 mmol/L (3.5-5.1); Sodium 139 mmol/L (136-145); Total Bilirubin 0.5 mg/dL (0.15-1.2); Total Protein 6.1 g/dL (6.6-8.7)
[2021-03-31 07:42] LABS: NT Pro B Type Natriuretic Pept 58 pg/mL (0-125)
[2021-03-31 08:00] LABS: Glucose Point of Care 107 mg/dL (70-110)
[2021-03-31 08:00] LABS: Glucose Point of Care 101 mg/dL (70-110)
[2021-03-31 08:00] LABS: Glucose Point of Care 266 mg/dL (70-110)
[2021-03-31 08:00] LABS: Glucose Point of Care 279 mg/dL (70-110)
[2021-03-31 08:00] LABS: Glucose Point of Care 243 mg/dL (70-110)
[2021-03-31] MEDS: albuterol 8 gm MDI 1 PUFF INHALATION ×4 (08:15→20:43)
[2021-03-31] MEDS: duloxetine 20 mg Capsule 40 MG PO (08:40)
[2021-03-31] MEDS: dexamethasone 4 mg/mL INJ 6 MG IVP (08:40)
[2021-03-31] MEDS: sennosides-docusate Tablet 1 TAB PO ×2 (08:41→17:26)
[2021-03-31] MEDS: cetirizine 10 mg Tablet PO (08:41)
[2021-03-31] MEDS: zinc gluconate 50 mg Tablet PO (08:41)
[2021-03-31] MEDS: baclofen 10 mg Tablet 5 MG PO ×3 (08:41→21:35)
[2021-03-31] MEDS: ascorbic acid 500 mg Tablet PO ×2 (08:41→17:27)
--- NOTE | 2021-03-31 09:45 | PC.CHAP ---
Pastoral Care Encounter/Spiritual Assessment Type of Contact [] Declined cover cutter machine visit [] Patient/Family/Request visit [] Outpatient visit [] Follow-up visit [] Physician referral [] Code/Alert [x] Routine visit [] Staff referral [] Actively dying [] Patient sleeping [] Family support [] [] Out of room [] Palliative care [] [] Receiving care in room [] Pre-surgical visit [] Trauma [] Long length of stay [] ICU visit [x] Other: covid Relational/Emotional Strength [] Patient feels connected with others/family/visitors/staff [] Distress [] Loneliness/isolation [] Abandonment Spirituality of Patient [] Person of Barbara [] Attends Mormon of their Barbara [] Believes in Prayer [] Reads Bible or Nondenominational materials [] There are Spiritual issues to be addressed Aviation Survival Technician 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 [x] Prayer [] Active listening [] Non-anxious presence [] Spiritual/emotional support [] Crisis/trauma care [] Spiritual counseling [] Bereavement support [] Provided bereavement packet [] Provided Bible/devotional materials [] Provided toy/stuffed animal, coloring book to patient or family member [] Provided Communion [] Anointing/[place] [] Salvation [x] Completed spiritual assessment [] Other: Impact on Illness or Injury [] Angry [] Fearful [] Anxious [] Often cries [] Exhaustion [] Unable to work [] Unable to attend scientology [] Unable to walk/stand [] Unable to read [] Unable to drive [] Unable to eat/drink [] Unable to sleep [] Unable to be with family [] Patient intubated [] Other: Summary Time spent with patient
--- NOTE | 2021-03-31 11:48 | P.PN_ITS ---
Subjective Subjective: Interval history: Patient was seen this morning, she sitting up at the side of the bed, she tells me that she does feel a bit more short of breath with ambulation to the bathroom, but she is feeling well this morning, her oxygen requirements however have increased to 90% 55 L, no chest pain, no palpitations, no cough Vitals/I&O/Wt Last Vital Signs Temp 98.3 F 03/31/21 08:00 Pulse 77 03/31/21 08:27 Resp 18 03/31/21 08:24 BP 129/74 03/31/21 08:00 Pulse Ox 91 03/31/21 08:24 03/30/21 03/31/21 03/31/21 22:59 06:59 14:59 Intake Total 100 / 200 240 / 240 Output Total 1325 / 2325 325 / 2650 Balance -1325 / -2225 -225 / -2450 240 / 240 Weight last 48 hrs Weight 144.651 kg Weight 153.314 kg Physical Exam Const: COMMON NORMALS: no acute distress and patient oriented x3 Resp: COMMON NORMALS: normal respiratory effort, No retractions, No use of accessory muscles and clear to auscultation bilaterally AUSCULTATION: clear to auscultation bilaterally Cardio: COMMON NORMALS: regular rate, regular rhythm, S1 normal heart sound present and S2 normal heart sound present RATE: regular rate RHYTHM: regular rhythm HEART SOUNDS: S1 normal heart sound present and S2 normal heart sound present GI: COMMON NORMALS: Normal to inspection, nondistended, normoactive bowel sounds present, Soft to palpation and non-tender PALPATION: Yes Soft to palpation Extremity: COMMON NORMALS: no pedal edema Neuro: COMMON NORMALS: patient oriented x3 Psych: COMMON NORMALS: mental status grossly normal Urinary Catheter Management^: Matthews: Cath Placed During This Visit: yes Reason for Continuing Indwelling Catheter: Accurate Measurement of Urinary Output in Critically Ill Patients Urinary Catheter Date of Insertion: 03/23/21 Urinary Catheter Time of Insertion: 16:47 Data : 03/31/21 05:55 03/31/21 05:55 A&P Assessment and plan (1) COVID-19: Clinically patient looks well this morning, a bit short of breath with exertion more than usual, however her oxygen requirements have increased to 90% FiO2 and 55 L She is -4.5 L does not look fluid overloaded s/p remdesivir 03/23-03/27 Continue dexamethasone 6 mg IV every 24 hours 1 dose of Tocilizumab given 03/23, I will expand antibiotic coverage today to Primaxin We will add fungal series given her type 2 diabetes Repeat blood cultures, sputum cultures, urine cultures Blood cultures negative to date MRSA PCR negative. Bacterial antigen panel negative. High flow oxygen wean as tolerated Appreciate pulmonary consultation Pulmonary toilet, incentive spirometer, flutter valve Wean oxygen as tolerated Hold off on Lasix for today Given her persistent oxygen requirements, will expand antibiotic coverage to Primaxin, continue to monitor Status: Acute (2) Acute respiratory failure: Status: Acute Qualifiers: Respiratory failure complication: hypoxia Qualified Code(s): J96.01 - Acute respiratory failure with hypoxia (3) Asthma: No evidence of exacerbation currently. Continue pulmonary toilet Status: Chronic Qualifiers: Asthma severity: mild Asthma persistence: intermittent Asthma complication type: uncomplicated Qualified Code(s): J45.20 - Mild intermittent asthma, uncomplicated (4) ARDS (adult respiratory distress syndrome): Status: Acute Additional A&P Information Diabetes mellitus. Had an episode of hypoglycemia, currently on Levemir 120 units twice daily, insulin sliding scale, NovoLog on hold Obesity. TSH checked and normal Transaminitis. Hepatitis panel negative. Abdominal ultrasound demonstrates likely cyst. AFP without significant elevation Urine culture grew Klebsiella, which is sensitive to Zosyn. Status post treatment. Chronic pain syndrome. Has pain pump with morphine and bupivacaine. This will continue currently. Multiple other medical problems as outlined in the medical history Full code Lovenox for DVT prophylaxis Attestations Medical Necessity Statement*: e patient requires hospitalization for COVID-19 pneumonia Coding Level of Care Code Acute Quantitative Analyst for [facility] Diagnoses COVID-19 U07.1 Acute respiratory failure J96.01 Respiratory failure complication: hypoxia Asthma J45.20 Asthma severity: mild Asthma persistence: intermittent Asthma complication type: uncomplicated ARDS (adult respiratory distress syndrome) J80
[2021-03-31 13:48] LABS: Glucose Point of Care 169 mg/dL (70-110)
[2021-03-31] MEDS: enoxaparin 40 mg/0.4 mL Syringe SUBCUT (17:27)
[2021-03-31 17:30] LABS: Glucose Point of Care 258 mg/dL (70-110)
[2021-03-31] MEDS: atorvastatin 40 mg Tablet 20 MG PO (21:36)
[2021-03-31] MEDS: pantoprazole DR 40 mg Tablet PO (21:36)
[2021-03-31] MEDS: aspirin 81 mg EC Tablet PO (21:36)
[2021-03-31 21:45] LABS: Glucose Point of Care 269 mg/dL (70-110)
[2021-04-01] VITALS (19 sets, daily range): BP systolic 123–154; BP diastolic 81–96; PULSE 63–103; RESP 15–18; TEMP 36.1–36.9; O2SAT 91–106
[2021-04-01] MEDS: atenolol 50 mg Tablet 25 MG PO (05:16)
--- NOTE | 2021-04-01 07:00 | XR_ITS ---
WS: [id number] Portable AP upright chest, 04/01/2021 Clinical Data: sob Comparison: Portable chest, 03/30/2021. Findings: The patchy bilateral pulmonary opacities remain the same. The heart size is at the upper li mits of normal. Monitor leads on the chest wall. XR/XR chest 1V portable [id number] Impression: No change in patchy bilateral pulmonary opacities.
[2021-04-01 07:13] LABS: Glucose Point of Care 91 mg/dL (70-110)
[2021-04-01 07:39] LABS: Basophils % 0.1 %; Eosinophils # 0.3 10^3/uL (0.0-0.8); Eosinophils % 3.6 %; Hematocrit 47.3 % (37.0-47.0); Hemoglobin 14.6 g/dL (11.5-15.3); Lymphocytes # 1.6 10^3/uL (0.8-4.8); Lymphocytes % 18.8 %; Mean Corpuscular HGB Conc 30.9 g/dL (30.0-36.0); Mean Corpuscular Hemoglobin 25.4 pg (28.0-34.0); Mean Corpuscular Volume 82.3 fL (81-99); Mean Platelet Volume 11.5 fL (7.4-10.4); Monocytes # 0.7 10^3/uL (0.2-0.9); Monocytes % 8.9 %; Neutrophils # 5.55 10^3/uL (1.8-7.7); Neutrophils % 67.5 %; Nucleated Red Blood Cells % 0 %; Platelet Count 244 10^3/cmm (130-400); Red Blood Count 5.75 10^6/uL (4.1-5.3); Red Cell Distribution Width 17.8 % (12.1-15.1); White Blood Count 8.2 10^3/uL (4.0-10.0)
[2021-04-01] MEDS: albuterol 8 gm MDI 1 PUFF INHALATION ×3 (08:14→20:11)
[2021-04-01 08:21] LABS: NT Pro B Type Natriuretic Pept 36 pg/mL (0-125); Procalcitonin 0.08 ng/mL (0-0.5)
[2021-04-01 08:33] LABS: Alanine Aminotransferase 35 U/L (0-33); Albumin Level 3.1 g/dL (3.5-5.2); Alkaline Phosphatase 136 IU/L (35-105); Anion Gap 13.5 (5-19); Aspartate Amino Transferase 38 U/L (0-32); Blood Urea Nitrogen 16 mg/dL (6-20); C Reactive Protein 3.3 mg/L (0.0-4.9); Calcium 8.6 mg/dL (8.5-10.5); Carbon Dioxide 29 mmol/L (22-29); Chloride 98 mmol/L (98-107); Globulin 3.1 g/dL (1.3-4.6); Glomerular Filtration Rate 110.7 mL/min (90-130); Glucose 76 mg/dL (65-115); Magnesium 1.9 mg/dL (1.7-2.3); Osmolality Calculated 282 mOsm/kg (285-295); Phosphorus 3.8 mg/dL (2.5-4.5); Potassium 4.5 mmol/L (3.5-5.1); Sodium 136 mmol/L (136-145); Total Bilirubin 0.6 mg/dL (0.15-1.2); Total Protein 6.2 g/dL (6.6-8.7)
[2021-04-01] MEDS: duloxetine 20 mg Capsule 40 MG PO (08:36)
[2021-04-01] MEDS: baclofen 10 mg Tablet 5 MG PO ×3 (08:36→20:49)
[2021-04-01] MEDS: sennosides-docusate Tablet 1 TAB PO ×2 (08:36→17:09)
[2021-04-01] MEDS: zinc gluconate 50 mg Tablet PO (08:36)
[2021-04-01] MEDS: cetirizine 10 mg Tablet PO (08:37)
[2021-04-01] MEDS: ascorbic acid 500 mg Tablet PO ×2 (08:37→17:09)
[2021-04-01] MEDS: dexamethasone 4 mg/mL INJ 6 MG IVP (08:37)
--- NOTE | 2021-04-01 09:34 | PC.NURSE ---
0700 Report received, assessment completed in room. AAOx4. Makes all needs known. On BIPAP then switched to HFNC per RT. No issues noted. 0956 Report given to oncoming nurse.
--- NOTE | 2021-04-01 09:56 | PC.CHAP ---
Pastoral Care Encounter/Spiritual Assessment Type of Contact [] Declined waist presser visit [] Patient/Family/Request visit [] Outpatient visit [] Follow-up visit [] Physician referral [] Code/Alert [x] Routine visit [] Staff referral [] Actively dying [] Patient sleeping [] Family support [] [] Out of room [] Palliative care [] [] Receiving care in room [] Pre-surgical visit [] Trauma [] Long length of stay [] ICU visit [x] Other:covid Relational/Emotional Strength [] Patient feels connected with others/family/visitors/staff [] Distress [] Loneliness/isolation [] Abandonment Spirituality of Patient [] Person of Barbara [] Attends Mu-Ism of their Barbara [] Believes in Prayer [] Reads Bible or Confucianism materials [] There are Spiritual issues to be addressed Cath Lab Radiology Technician 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 [x] Prayer [] Active listening [] Non-anxious presence [] Spiritual/emotional support [] Crisis/trauma care [] Spiritual counseling [] Bereavement support [] Provided bereavement packet [] Provided Bible/devotional materials [] Provided toy/stuffed animal, coloring book to patient or family member [] Provided Communion [] Anointing/[place] [] Salvation [x] Completed spiritual assessment [] Other: Impact on Illness or Injury [] Angry [] Fearful [] Anxious [] Often cries [] Exhaustion [] Unable to work [] Unable to attend spiritism [] Unable to walk/stand [] Unable to read [] Unable to drive [] Unable to eat/drink [] Unable to sleep [] Unable to be with family [] Patient intubated [] Other: Summary Time spent with patient
[2021-04-01 12:08] LABS: Glucose Point of Care 149 mg/dL (70-110)
--- NOTE | 2021-04-01 13:25 | PM.PN ---
Subjective Subjective: Interval history: Patient was seen this morning, she is a bit teary about still being here in the hospital, requiring high amounts of oxygen, she really wants to be at home with her , she feels good this morning she tells me, she is ambulating without significant symptomatology, no nausea, no vomiting, no chest pain afebrile, Vitals/I&O/Wt Last Vital Signs Temp 98.4 F 04/01/21 12:32 Pulse 71 04/01/21 12:32 Resp 18 04/01/21 12:32 BP 140/81 04/01/21 12:32 Pulse Ox 95 04/01/21 12:32 03/31/21 04/01/21 04/01/21 22:59 06:59 14:59 Intake Total 1040 / 1380 100 / 1480 Output Total 1300 / 1300 Balance -260 / 80 100 / 180 Weight last 48 hrs Weight 145.15 kg Weight 144.651 kg Physical Exam Const: COMMON NORMALS: no acute distress and patient oriented x3 Resp: COMMON NORMALS: normal respiratory effort, No retractions, No use of accessory muscles and clear to auscultation bilaterally AUSCULTATION: clear to auscultation bilaterally Cardio: COMMON NORMALS: regular rate, regular rhythm, S1 normal heart sound present and S2 normal heart sound present RATE: regular rate RHYTHM: regular rhythm HEART SOUNDS: S1 normal heart sound present and S2 normal heart sound present GI: COMMON NORMALS: Normal to inspection, nondistended, normoactive bowel sounds present, Soft to palpation and non-tender PALPATION: Yes Soft to palpation Extremity: COMMON NORMALS: no pedal edema Neuro: COMMON NORMALS: patient oriented x3 Psych: COMMON NORMALS: mental status grossly normal Urinary Catheter Management^: Matthews: Cath Placed During This Visit: yes Reason for Continuing Indwelling Catheter: Accurate Measurement of Urinary Output in Critically Ill Patients Urinary Catheter Date of Insertion: 03/23/21 Urinary Catheter Time of Insertion: 16:47 Data : 04/01/21 06:27 04/01/21 06:27 Micro: Microbiology 03/31/21 12:28 Blood Culture - Preliminary Blood NEGATIVE TO DATE 03/31/21 12:25 Blood Culture - Preliminary Blood NEGATIVE TO DATE A&P Assessment and plan (1) COVID-19: Clinically patient looks well this morning, a bit short of breath with exertion more than usual, however her oxygen requirements have increased to 90% FiO2 and 55 L She is -4.5 L s/p remdesivir 03/23-03/27 Continue dexamethasone 6 mg IV every 24 hours 1 dose of Tocilizumab given 03/23, Currently on Primaxin We will add fungal series given her type 2 diabetes Repeat blood cultures, sputum cultures, urine cultures Blood cultures negative to date MRSA PCR negative. Bacterial antigen panel negative. High flow oxygen wean as tolerated Appreciate pulmonary consultation Pulmonary toilet, incentive spirometer, flutter valve Encourage prone positioning Wean oxygen as tolerated Lasix for today Given anxiety start low-dose Klonopin Plan for today, low-dose Klonopin for anxiety, continue Primaxin, diuresis, monitor clinical status Status: Acute (2) Acute respiratory failure: Status: Acute Qualifiers: Respiratory failure complication: hypoxia Qualified Code(s): J96.01 - Acute respiratory failure with hypoxia (3) Asthma: No evidence of exacerbation currently. Continue pulmonary toilet Status: Chronic Qualifiers: Asthma severity: mild Asthma persistence: intermittent Asthma complication type: uncomplicated Qualified Code(s): J45.20 - Mild intermittent asthma, uncomplicated (4) ARDS (adult respiratory distress syndrome): Status: Acute Additional A&P Information Diabetes mellitus. Had an episode of hypoglycemia, currently on Levemir 120 units twice daily, insulin sliding scale, NovoLog on hold Obesity. TSH checked and normal Transaminitis. Hepatitis panel negative. Abdominal ultrasound demonstrates likely cyst. AFP without significant elevation Urine culture grew Klebsiella, which is sensitive to Zosyn. Status post treatment. Chronic pain syndrome. Has pain pump with morphine and bupivacaine. This will continue currently. Multiple other medical problems as outlined in the medical history Full code Lovenox for DVT prophylaxis Attestations Medical Necessity Statement*: Patient requires hospitalization due to COVID-19 pneumonia Coding Level of Care Code Acute Sales Branch Manager for [facility] Diagnoses COVID-19 U07.1 Acute respiratory failure J96.01 Respiratory failure complication: hypoxia Asthma J45.20 Asthma severity: mild Asthma persistence: intermittent Asthma complication type: uncomplicated ARDS (adult respiratory distress syndrome) J80
[2021-04-01] MEDS: CLONazepam 0.5 mg Tablet 0.25 MG PO (15:43)
[2021-04-01] MEDS: enoxaparin 40 mg/0.4 mL Syringe SUBCUT (17:10)
[2021-04-01 17:24] LABS: Glucose Point of Care 251 mg/dL (70-110)
[2021-04-01] MEDS: pantoprazole DR 40 mg Tablet PO (20:48)
[2021-04-01] MEDS: atorvastatin 40 mg Tablet 20 MG PO (20:48)
[2021-04-01] MEDS: aspirin 81 mg EC Tablet PO (20:48)
[2021-04-02] VITALS (17 sets, daily range): BP systolic 117–148; BP diastolic 70–90; PULSE 62–90; RESP 14–22; TEMP 36.1–37; O2SAT 87–94
[2021-04-02] MEDS: albuterol 8 gm MDI 1 PUFF INHALATION ×4 (03:28→20:38)
[2021-04-02] MEDS: atenolol 50 mg Tablet 25 MG PO (05:01)
--- NOTE | 2021-04-02 07:00 | XRR_ITS ---
PROCEDURE INFORMATION: Exam: XR Chest Exam date and time: 04/02/2021 7:00 AM Age: 40 years old Clinical indication: Shortness of breath; Patient HX: Covid f/u. On high flow. ; Additional info: SOB TECHNIQUE: Imaging protocol: XR of the chest. Views: 1 view. COMPARISON: CR XR chest 1V portable [id number] 04/01/2021 6:04 AM FINDINGS: Lungs: Low lung volumes. Persistent bilateral airspace opacities. No large pleural effusion or pneumothorax. Pleural spaces: See Lungs finding. Heart/Mediastinum: Stable cardiomediastinal silhouette. Bones/joints: No acute osseous injury identified. XR/XR chest 1V portable [id number] IMPRESSION: Persistent bilateral airspace opacities.
[2021-04-02 07:20] LABS: Basophils % 0.1 %; Eosinophils # 0.3 10^3/uL (0.0-0.8); Hematocrit 46.8 % (37.0-47.0); Hemoglobin 14.5 g/dL (11.5-15.3); Lymphocytes # 1.6 10^3/uL (0.8-4.8); Lymphocytes % 19.4 %; Mean Corpuscular Hemoglobin 25.2 pg (28.0-34.0); Mean Corpuscular Volume 81.3 fL (81-99); Mean Platelet Volume 12.3 fL (7.4-10.4); Monocytes # 0.8 10^3/uL (0.2-0.9); Monocytes % 10.3 %; Neutrophils # 5.34 10^3/uL (1.8-7.7); Neutrophils % 65.3 %; Nucleated Red Blood Cells % 0 %; Platelet Count 242 10^3/cmm (130-400); Red Blood Count 5.76 10^6/uL (4.1-5.3); Red Cell Distribution Width 17.5 % (12.1-15.1); White Blood Count 8.2 10^3/uL (4.0-10.0)
[2021-04-02 07:56] LABS: Alanine Aminotransferase 41 U/L (0-33); Albumin Level 3.1 g/dL (3.5-5.2); Alkaline Phosphatase 141 IU/L (35-105); Anion Gap 14.3 (5-19); Aspartate Amino Transferase 41 U/L (0-32); Blood Urea Nitrogen 16 mg/dL (6-20); C Reactive Protein 3.2 mg/L (0.0-4.9); Calcium 8.6 mg/dL (8.5-10.5); Carbon Dioxide 26 mmol/L (22-29); Chloride 96 mmol/L (98-107); Globulin 3.3 g/dL (1.3-4.6); Glomerular Filtration Rate 136.6 mL/min (90-130); Glucose 155 mg/dL (65-115); Magnesium 1.9 mg/dL (1.7-2.3); Osmolality Calculated 278 mOsm/kg (285-295); Phosphorus 3.5 mg/dL (2.5-4.5); Potassium 4.3 mmol/L (3.5-5.1); Sodium 132 mmol/L (136-145); Total Bilirubin 0.5 mg/dL (0.15-1.2); Total Protein 6.4 g/dL (6.6-8.7)
[2021-04-02 08:09] LABS: NT Pro B Type Natriuretic Pept 42 pg/mL (0-125)
[2021-04-02 08:20] LABS: Creatine Phosphokinase 47 U/L (26-192)
[2021-04-02] MEDS: duloxetine 20 mg Capsule 40 MG PO (09:06)
[2021-04-02] MEDS: baclofen 10 mg Tablet 5 MG PO ×3 (09:06→22:23)
[2021-04-02] MEDS: ascorbic acid 500 mg Tablet PO ×2 (09:06→18:23)
[2021-04-02] MEDS: cetirizine 10 mg Tablet PO (09:06)
[2021-04-02] MEDS: dexamethasone 4 mg/mL INJ 6 MG IVP (09:07)
[2021-04-02] MEDS: zinc gluconate 50 mg Tablet PO (09:07)
[2021-04-02] MEDS: sennosides-docusate Tablet 1 TAB PO ×2 (09:07→18:23)
--- NOTE | 2021-04-02 09:51 | PC.CHAP ---
Pastoral Care Encounter/Spiritual Assessment Type of Contact [] Declined international logistics analyst visit [] Patient/Family/Request visit [] Outpatient visit [] Follow-up visit [] Physician referral [] Code/Alert x] Routine visit [] Staff referral [] Actively dying [] Patient sleeping [] Family support [] [] Out of room [] Palliative care [] [] Receiving care in room [] Pre-surgical visit [] Trauma [] Long length of stay [] ICU visit [x] Other: covid Relational/Emotional Strength [] Patient feels connected with others/family/visitors/staff [] Distress [] Loneliness/isolation [] Abandonment Spirituality of Patient [] Person of Barbara [] Attends Temple of their Barbara [] Believes in Prayer [] Reads Bible or Congregation materials [] There are Spiritual issues to be addressed Glaze Supervisor 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 [x] Prayer [] Active listening [] Non-anxious presence [] Spiritual/emotional support [] Crisis/trauma care [] Spiritual counseling [] Bereavement support [] Provided bereavement packet [] Provided Bible/devotional materials [] Provided toy/stuffed animal, coloring book to patient or family member [] Provided Communion [] Anointing/[place] [] Salvation x[] Completed spiritual assessment [] Other: Impact on Illness or Injury [] Angry [] Fearful [] Anxious [] Often cries [] Exhaustion [] Unable to work [] Unable to attend buddhism [] Unable to walk/stand [] Unable to read [] Unable to drive [] Unable to eat/drink [] Unable to sleep [] Unable to be with family [] Patient intubated [] Other: Summary Time spent with patient
[2021-04-02 11:00] LABS: Glucose Point of Care 206 mg/dL (70-110)
--- NOTE | 2021-04-02 13:37 | P.PN_ITS ---
Subjective Subjective: Interval history: Patient was seen this morning, her oxygen requirements have decreased to 50 L 70% FiO2, she is feeling better, Vitals/I&O/Wt Last Vital Signs Temp 98.1 F 04/02/21 11:59 Pulse 66 04/02/21 11:59 Resp 15 04/02/21 11:59 BP 117/82 04/02/21 11:59 Pulse Ox 91 04/02/21 11:59 04/01/21 04/02/21 04/02/21 22:59 06:59 14:59 Intake Total 680 / 780 220 / 1000 100 / 100 Output Total 1500 / 1500 1800 / 3300 Balance -820 / -720 -1580 / -2300 100 / 100 Weight last 48 hrs Weight 145.512 kg Weight 145.15 kg Physical Exam Const: COMMON NORMALS: no acute distress and patient oriented x3 Resp: COMMON NORMALS: normal respiratory effort, No retractions, No use of accessory muscles and clear to auscultation bilaterally AUSCULTATION: clear to auscultation bilaterally Cardio: COMMON NORMALS: regular rate, regular rhythm, S1 normal heart sound present and S2 normal heart sound present RATE: regular rate RHYTHM: regular rhythm HEART SOUNDS: S1 normal heart sound present and S2 normal heart sound present GI: COMMON NORMALS: Normal to inspection, nondistended, normoactive bowel sounds present, Soft to palpation and non-tender PALPATION: Yes Soft to palpation Extremity: COMMON NORMALS: no pedal edema Neuro: COMMON NORMALS: patient oriented x3 Urinary Catheter Management^: Matthews: Cath Placed During This Visit: yes Reason for Continuing Indwelling Catheter: Accurate Measurement of Urinary Outpu t in Critically Ill Patients Urinary Catheter Date of Insertion: 03/23/21 Urinary Catheter Time of Insertion: 16:47 Data : 04/02/21 06:09 04/02/21 06:09 Micro: Microbiology 03/31/21 12:28 Blood Culture - Preliminary Blood NEGATIVE TO DATE 03/31/21 12:25 Blood Culture - Preliminary Blood NEGATIVE TO DATE A&P Assessment and plan (1) COVID-19: Clinically patient looks well this morning, a bit short of breath with exertion more than usual, however her oxygen requirements have increased to 90% FiO2 and 55 L She is -6.7 L s/p remdesivir 03/23-03/27 Continue dexamethasone 6 mg IV every 24 hours 1 dose of Tocilizumab given 03/23, Currently on Primaxin We will add fungal series given her type 2 diabetes Repeat blood cultures, sputum cultures, urine cultures Blood cultures negative to date MRSA PCR negative. Bacterial antigen panel negative. High flow oxygen wean as tolerated Appreciate pulmonary consultation Pulmonary toilet, incentive spirometer, flutter valve Encourage prone positioning Wean oxygen as tolerated Sodium 132, likely secondary to diuresis hold Lasix Given anxiety start low-dose Klonopin Plan for today, wean oxygen as tolerated, monitor clinical status Status: Acute (2) Acute respiratory failure: Status: Acute Qualifiers: Respiratory failure complication: hypoxia Qualified Code(s): J96.01 - Acute respiratory failure with hypoxia (3) Asthma: No evidence of exacerbation currently. Continue pulmonary toilet Status: Chronic Qualifiers: Asthma severity: mild Asthma persistence: intermittent Asthma complication type: uncomplicated Qualified Code(s): J45.20 - Mild intermittent asthma, uncomplicated (4) ARDS (adult respiratory distress syndrome): Status: Acute Additional A&P Information Diabetes mellitus. Had an episode of hypoglycemia, currently on Levemir 120 units twice daily, insulin sliding scale, NovoLog on hold Obesity. TSH checked and normal Transaminitis. Hepatitis panel negative. Abdominal ultrasound demonstrates likely cyst. AFP without significant elevation Urine culture grew Klebsiella, which is sensitive to Zosyn. Status post treatment. Chronic pain syndrome. Has pain pump with morphine and bupivacaine. This will continue currently. 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
[2021-04-02] MEDS: enoxaparin 40 mg/0.4 mL Syringe SUBCUT (18:23)
[2021-04-02] MEDS: atorvastatin 40 mg Tablet 20 MG PO (22:18)
[2021-04-02] MEDS: aspirin 81 mg EC Tablet PO (22:22)
[2021-04-02] MEDS: pantoprazole DR 40 mg Tablet PO (22:23)
[2021-04-03] VITALS (13 sets, daily range): BP systolic 113–150; BP diastolic 79–101; PULSE 62–97; RESP 14–23; TEMP 36.7–36.8; O2SAT 90–93
[2021-04-03] MEDS: albuterol 8 gm MDI 1 PUFF INHALATION ×4 (02:21→20:45)
[2021-04-03 06:29] LABS: Basophils % 0.3 %; Eosinophils # 0.2 10^3/uL (0.0-0.8); Eosinophils % 1.7 %; Hematocrit 47.1 % (37.0-47.0); Hemoglobin 14.4 g/dL (11.5-15.3); Lymphocytes # 1.7 10^3/uL (0.8-4.8); Lymphocytes % 16.5 %; Mean Corpuscular HGB Conc 30.6 g/dL (30.0-36.0); Mean Corpuscular Hemoglobin 25.1 pg (28.0-34.0); Mean Corpuscular Volume 82.1 fL (81-99); Mean Platelet Volume 12.9 fL (7.4-10.4); Neutrophils # 7.21 10^3/uL (1.8-7.7); Neutrophils % 70.8 %; Nucleated Red Blood Cells % 0 %; Platelet Count 233 10^3/cmm (130-400); Red Blood Count 5.74 10^6/uL (4.1-5.3); Red Cell Distribution Width 18.1 % (12.1-15.1); White Blood Count 10.2 10^3/uL (4.0-10.0)
[2021-04-03] MEDS: atenolol 50 mg Tablet 25 MG PO (06:43)
[2021-04-03 06:52] LABS: Glucose Point of Care 192 mg/dL (70-110)
[2021-04-03 07:01] LABS: Alanine Aminotransferase 47 U/L (0-33); Albumin Level 3.2 g/dL (3.5-5.2); Alkaline Phosphatase 139 IU/L (35-105); Anion Gap 15.3 (5-19); Aspartate Amino Transferase 37 U/L (0-32); Blood Urea Nitrogen 21 mg/dL (6-20); Calcium 8.6 mg/dL (8.5-10.5); Carbon Dioxide 26 mmol/L (22-29); Chloride 98 mmol/L (98-107); Globulin 3.2 g/dL (1.3-4.6); Glomerular Filtration Rate 110.7 mL/min (90-130); Glucose 211 mg/dL (65-115); Osmolality Calculated 289 mOsm/kg (285-295); Phosphorus 4.1 mg/dL (2.5-4.5); Potassium 4.3 mmol/L (3.5-5.1); Sodium 135 mmol/L (136-145); Total Bilirubin 0.4 mg/dL (0.15-1.2); Total Protein 6.4 g/dL (6.6-8.7)
[2021-04-03 07:06] LABS: NT Pro B Type Natriuretic Pept 47 pg/mL (0-125); Procalcitonin 0.09 ng/mL (0-0.5)
[2021-04-03 07:39] LABS: Creatine Phosphokinase 33 U/L (26-192)
[2021-04-03] MEDS: duloxetine 20 mg Capsule 40 MG PO (09:15)
[2021-04-03] MEDS: zinc gluconate 50 mg Tablet PO (09:15)
[2021-04-03] MEDS: ascorbic acid 500 mg Tablet PO ×2 (09:15→17:57)
[2021-04-03] MEDS: cetirizine 10 mg Tablet PO (09:15)
[2021-04-03] MEDS: dexamethasone 4 mg/mL INJ 6 MG IVP (09:15)
[2021-04-03] MEDS: sennosides-docusate Tablet 1 TAB PO ×2 (09:15→17:57)
[2021-04-03] MEDS: baclofen 10 mg Tablet 5 MG PO ×3 (09:15→20:53)
[2021-04-03] MEDS: fluconazole 100 mg Tablet 200 MG PO (12:21)
--- NOTE | 2021-04-03 13:42 | PM.PN ---
Subjective Subjective: Interval history: Patient was seen this morning, she tells me that her breathing has improved, she is been afebrile overnight, but she just not feeling well this morning, she did get good sleep overnight, Medications: Reviewed: Yes Vitals/I&O/Wt Last Vital Signs Temp 98.1 F 04/03/21 04:00 Pulse 68 04/03/21 11:37 Resp 20 H 04/03/21 11:37 BP 113/79 04/03/21 08:00 Pulse Ox 90 04/03/21 11:37 04/02/21 04/03/21 04/03/21 22:59 06:59 14:59 Intake Total 100 / 200 200 / 400 100 / 100 Output Total 2100 / 2100 0 / 2100 850 / 850 Balance -2000 / -1900 200 / -1700 -750 / -750 Weight last 48 hrs Weight 145.331 kg Weight 145.512 kg Physical Exam Const: COMMON NORMALS: no acute distress and patient oriented x3 Resp: COMMON NORMALS: normal respiratory effort, No retractions, No use of accessory muscles and clear to auscultation bilaterally AUSCULTATION: clear to auscultation bilaterally Cardio: COMMON NORMALS: regular rate, regular rhythm, S1 normal heart sound present and S2 normal heart sound present RATE: regular rate RHYTHM: regular rhythm HEART SOUNDS: S1 normal heart sound present and S2 normal heart sound present GI: COMMON NORMALS: Normal to inspection, nondistended, normoactive bowel sounds present, Soft to palpation and non-tender PALPATION: Yes Soft to palpation Extremity: COMMON NORMALS: no pedal edema Neuro: COMMON NORMALS: patient oriented x3 Psych: COMMON NORMALS: mental status grossly normal Urinary Catheter Management^: Matthews: Cath Placed During This Visit: yes, but has since been removed by the nurse Reason for Continuing Indwelling Catheter: Decision to DC Catheter Urinary Catheter Date of Insertion: 03/23/21 Urinary Catheter Time of Insertion: 16:47 Date Urinary Catheter Removed: 04/02/21 Time Urinary Catheter Discontinued: 16:00 Data : 04/03/21 04:33 04/03/21 04:33 Micro: Microbiology 04/01/21 14:58 Urine Culture - Preliminary Urine Catheterized Yeast A&P Assessment and plan (1) COVID-19: Clinically patient looks well this morning, a bit short of breath with exertion more than usual, however her oxygen requirements have increased to 50% FiO2 and 70 L She is -9 L s/p remdesivir 03/23-03/27 Continue dexamethasone 6 mg IV every 24 hours 1 dose of Tocilizumab given 03/23, Currently on Primaxin We will add fungal series given her type 2 diabetes Repeat blood cultures, sputum cultures, urine cultures Blood cultures negative to date MRSA PCR negative. Bacterial antigen panel negative. High flow oxygen wean as tolerated Appreciate pulmonary consultation Pulmonary toilet, incentive spirometer, flutter valve Encourage prone positioning Wean oxygen as tolerated Sodium 132, likely secondary to diuresis hold Lasix Given anxiety start low-dose Klonopin Plan for today, wean oxygen as tolerated, monitor clinical status Status: Acute (2) Acute respiratory failure: Status: Acute Qualifiers: Respiratory failure complication: hypoxia Qualified Code(s): J96.01 - Acute respiratory failure with hypoxia (3) Asthma: No evidence of exacerbation currently. Continue pulmonary toilet Status: Chronic Qualifiers: Asthma severity: mild Asthma persistence: intermittent Asthma complication type: uncomplicated Qualified Code(s): J45.20 - Mild intermittent asthma, uncomplicated (4) ARDS (adult respiratory distress syndrome): Status: Acute Additional A&P Information Diabetes mellitus. Had an episode of hypoglycemia, currently on Levemir 120 units twice daily, insulin sliding scale, NovoLog on hold Obesity. TSH checked and normal Transaminitis. Hepatitis panel negative. Abdominal ultrasound demonstrates likely cyst. AFP without significant elevation Urine culture grew Klebsiella, which is sensitive to Zosyn. Status post treatment. Chronic pain syndrome. Has pain pump with morphine and bupivacaine. This will continue currently. 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
[2021-04-03] MEDS: enoxaparin 40 mg/0.4 mL Syringe SUBCUT (17:56)
[2021-04-03] MEDS: pantoprazole DR 40 mg Tablet PO (20:56)
[2021-04-03] MEDS: aspirin 81 mg EC Tablet PO (20:57)
[2021-04-03] MEDS: atorvastatin 40 mg Tablet 20 MG PO (20:57)
--- NOTE | 2021-04-03 21:16 | PC.NURSE ---
will put scd on pt before bed
--- NOTE | 2021-04-03 21:16 | PC.NURSE ---
pt iv in her right ac space 22g
[2021-04-03 21:17] LABS: Glucose Point of Care 329 mg/dL (70-110)
[2021-04-03 21:17] LABS: Glucose Point of Care 283 mg/dL (70-110)
[2021-04-03 21:17] LABS: Glucose Point of Care 369 mg/dL (70-110)
[2021-04-03 21:17] LABS: Glucose Point of Care 158 mg/dL (70-110)
[2021-04-03 21:17] LABS: Glucose Point of Care 318 mg/dL (70-110)
[2021-04-03 21:17] LABS: Glucose Point of Care 260 mg/dL (70-110)
[2021-04-03 21:17] LABS: Glucose Point of Care 225 mg/dL (70-110)
[2021-04-03 21:17] LABS: Glucose Point of Care 164 mg/dL (70-110)
[2021-04-03 21:17] LABS: Glucose Point of Care 340 mg/dL (70-110)
--- NOTE | 2021-04-03 23:26 | PC.NURSE ---
pt noted to desat down to 84/85 when she is up to the bedside commode but is active on her own and recovers quickly.
--- NOTE | 2021-04-03 23:28 | PC.NURSE ---
while teaching pt about her meds. 'i dont really care about the side effects. i take them all at home.'
[2021-04-03 23:42] LABS: Glucose Point of Care 274 mg/dL (70-110)
--- NOTE | 2021-04-03 23:44 | PC.NURSE ---
pt iv in right ac
[2021-04-04] VITALS (14 sets, daily range): BP systolic 119–156; BP diastolic 82–86; PULSE 56–84; RESP 14–21; TEMP 36.4–36.7; O2SAT 85–95
--- NOTE | 2021-04-04 02:30 | PC.RESP ---
RT Shift Note Frequent safety and respiratory rounds continue. Orders completed as indicated. Patient monitored pre and post treatments throughout shift. Patient [Did] tolerate treatments appropriately. Condition [DidNotChange]. Patient and/or bilingual call center representative educated on respiratory treatment and medications. Patient and/or bilingual call center representative [ResponseToTeaching]. Will continue to monitor patient progress.
--- NOTE | 2021-04-04 04:14 | PC.NURSE ---
pt is recovering from getting up to bedside commode at this time.
--- NOTE | 2021-04-04 05:54 | PC.NURSE ---
pt did not do well with morning meds. pt would fall asleep while swallowing applesauce and refused to rink the entire dose of lactolose.
--- NOTE | 2021-04-04 06:01 | PC.NURSE ---
pt states this is normal pain level for her.
[2021-04-04] MEDS: atenolol 50 mg Tablet 25 MG PO (06:02)
[2021-04-04 06:54] LABS: Glucose Point of Care 192 mg/dL (70-110)
[2021-04-04 06:54] LABS: Glucose Point of Care 179 mg/dL (70-110)
--- NOTE | 2021-04-04 07:15 | PC.NURSE ---
Late Entry Report received from Marianne CARTY. Patient is sitting up in bed watching her Ipad. No C/O of pain or other needs at this time.
[2021-04-04 07:36] LABS: Basophils % 0.3 %; Eosinophils # 0.1 10^3/uL (0.0-0.8); Eosinophils % 0.8 %; Hematocrit 49.4 % (37.0-47.0); Hemoglobin 15.1 g/dL (11.5-15.3); Lymphocytes % 17.5 %; Mean Corpuscular HGB Conc 30.6 g/dL (30.0-36.0); Mean Corpuscular Hemoglobin 25.6 pg (28.0-34.0); Mean Corpuscular Volume 83.7 fL (81-99); Mean Platelet Volume 13.5 fL (7.4-10.4); Monocytes # 1.1 10^3/uL (0.2-0.9); Monocytes % 9.4 %; Neutrophils % 71.2 %; Nucleated Red Blood Cells % 0 %; Platelet Count 216 10^3/cmm (130-400); Red Cell Distribution Width 18.6 % (12.1-15.1); White Blood Count 11.6 10^3/uL (4.0-10.0)
[2021-04-04 08:06] LABS: Alanine Aminotransferase 52 U/L (0-33); Albumin Level 3.4 g/dL (3.5-5.2); Alkaline Phosphatase 141 IU/L (35-105); Anion Gap 17.5 (5-19); Aspartate Amino Transferase 39 U/L (0-32); Blood Urea Nitrogen 17 mg/dL (6-20); C Reactive Protein 2.8 mg/L (0.0-4.9); Calcium 8.7 mg/dL (8.5-10.5); Carbon Dioxide 28 mmol/L (22-29); Chloride 99 mmol/L (98-107); Globulin 3.4 g/dL (1.3-4.6); Glomerular Filtration Rate 136.6 mL/min (90-130); Glucose 155 mg/dL (65-115); Magnesium 1.9 mg/dL (1.7-2.3); Osmolality Calculated 295 mOsm/kg (285-295); Phosphorus 3.6 mg/dL (2.5-4.5); Potassium 4.5 mmol/L (3.5-5.1); Sodium 140 mmol/L (136-145); Total Bilirubin 0.4 mg/dL (0.15-1.2); Total Protein 6.8 g/dL (6.6-8.7)
[2021-04-04 08:12] LABS: NT Pro B Type Natriuretic Pept 37 pg/mL (0-125); Procalcitonin 0.07 ng/mL (0-0.5)
[2021-04-04 08:23] LABS: Creatine Phosphokinase 49 U/L (26-192)
[2021-04-04] MEDS: albuterol 8 gm MDI 1 PUFF INHALATION ×3 (08:25→20:00)
[2021-04-04] MEDS: ascorbic acid 500 mg Tablet PO ×2 (09:14→18:16)
[2021-04-04] MEDS: baclofen 10 mg Tablet 5 MG PO ×3 (09:14→22:50)
[2021-04-04] MEDS: fluconazole 100 mg Tablet 200 MG PO (09:14)
[2021-04-04] MEDS: zinc gluconate 50 mg Tablet PO (09:14)
[2021-04-04] MEDS: sennosides-docusate Tablet 1 TAB PO (09:14)
[2021-04-04] MEDS: duloxetine 20 mg Capsule 40 MG PO (09:14)
[2021-04-04] MEDS: cetirizine 10 mg Tablet PO (09:14)
[2021-04-04] MEDS: dexamethasone 4 mg/mL INJ 6 MG IVP (09:15)
[2021-04-04 11:30] LABS: Glucose Point of Care 262 mg/dL (70-110)
--- NOTE | 2021-04-04 12:42 | P.PN_ITS ---
Subjective Subjective: Interval history: Patient was seen this morning, she tells me she is a bit tired this morning, but overall doing better, afebrile overnight, decreasing oxygen requirements Vitals/I&O/Wt Last Vital Signs Temp 98.0 F 04/04/21 12:00 Pulse 66 04/04/21 12:00 Resp 20 H 04/04/21 12:00 BP 135/82 04/04/21 12:00 Pulse Ox 93 04/04/21 12:00 04/03/21 04/04/21 04/04/21 22:59 06:59 14:59 Intake Total 100 / 200 200 / 400 100 / 100 Output Total 1200 / 2050 700 / 2750 Balance -1100 / -1850 -500 / -2350 100 / 100 Weight last 48 hrs Weight 144.605 kg Weight 145.331 kg Physical Exam Const: COMMON NORMALS: no acute distress and patient oriented x3 Resp: COMMON NORMALS: normal respiratory effort, No retractions, No use of accessory muscles and clear to auscultation bilaterally AUSCULTATION: clear to auscultation bilaterally Cardio: COMMON NORMALS: regular rate, regular rhythm, S1 normal heart sound present and S2 normal heart sound present RATE: regular rate RHYTHM: regular rhythm HEART SOUNDS: S1 normal heart sound present and S2 normal heart sound present GI: COMMON NORMALS: Normal to inspection, nondistended, normoactive bowel sounds present, Soft to palpation and non-tender PALPATION: Yes Soft to palpation Extremity: COMMON NORMALS: no pedal edema Neuro: COMMON NORMALS: patient oriented x3 Psych: COMMON NORMALS: mental status grossly normal Urinary Catheter Management^: Matthews: Cath Placed During This Visit: yes, but has since been removed by the nurse Reason for Continuing Indwelling Catheter: Decision to DC Catheter Urinary Catheter Date of Insertion: 03/23/21 Urinary Catheter Time of Insertion: 16:47 Date Urinary Catheter Removed: 04/02/21 Time Urinary Catheter Discontinued: 16:00 Data : 04/04/21 05:33 04/04/21 05:33 Micro: Microbiology 04/01/21 14:58 Urine Culture - Preliminary Urine Catheterized Yeast A&P Assessment and plan (1) COVID-19: Clinically patient looks well this morning, a bit short of breath with exertion more than usual, however her oxygen requirements have increased to 45 L, 65% FiO2 She is -10 L s/p remdesivir 03/23-03/27 Continue dexamethasone 6 mg IV every 24 hours 1 dose of Tocilizumab given 03/23, Currently on Primaxin We will add fungal series given her type 2 diabetes Repeat blood cultures, sputum cultures, urine cultures Blood cultures negative to date MRSA PCR negative. Bacterial antigen panel negative. High flow oxygen wean as tolerated Appreciate pulmonary consultation Pulmonary toilet, incentive spirometer, flutter valve Encourage prone positioning Wean oxygen as tolerated Sodium 140 Hold diuresis for now Given anxiety start low-dose Klonopin Plan for today, wean oxygen as tolerated, monitor clinical status Status: Acute (2) Acute respiratory failure: Status: Acute Qualifiers: Respiratory failure complication: hypoxia Qualified Code(s): J96.01 - Acute respiratory failure with hypoxia (3) Asthma: No evidence of exacerbation currently. Continue pulmonary toilet Status: Chronic Qualifiers: Asthma severity: mild Asthma persistence: intermittent Asthma complication type: uncomplicated Qualified Code(s): J45.20 - Mild intermittent asthma, uncomplicated (4) ARDS (adult respiratory distress syndrome): Status: Acute Additional A&P Information Diabetes mellitus. Had an episode of hypoglycemia, currently on Levemir 120 units twice daily, insulin sliding scale, NovoLog on hold Obesity. TSH checked and normal Transaminitis. Hepatitis panel negative. Abdominal ultrasound demonstrates likely cyst. AFP without significant elevation Urine culture grew Klebsiella, which is sensitive to Zosyn. Status post treatment. Chronic pain syndrome. Has pain pump with morphine and bupivacaine. This will continue currently. 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
--- NOTE | 2021-04-04 15:59 | PC.NURSE ---
Patient is resting in bed. Currently on 15 L NC. No C/O of pain or other needs at this time.
[2021-04-04 17:22] LABS: Glucose Point of Care 232 mg/dL (70-110)
[2021-04-04] MEDS: enoxaparin 40 mg/0.4 mL Syringe SUBCUT (18:16)
[2021-04-04] MEDS: aspirin 81 mg EC Tablet PO (22:48)
[2021-04-04] MEDS: atorvastatin 40 mg Tablet 20 MG PO (22:48)
[2021-04-04 22:51] LABS: Glucose Point of Care 304 mg/dL (70-110)
[2021-04-04] MEDS: pantoprazole DR 40 mg Tablet PO (22:51)
[2021-04-05] VITALS (13 sets, daily range): BP systolic 134–150; BP diastolic 75–95; PULSE 50–85; RESP 16–22; TEMP 36.4–37; O2SAT 89–93
[2021-04-05] MEDS: albuterol 8 gm MDI 1 PUFF INHALATION ×4 (02:37→22:30)
[2021-04-05] MEDS: atenolol 50 mg Tablet 25 MG PO (06:28)
[2021-04-05 06:52] LABS: Glucose Point of Care 176 mg/dL (70-110)
[2021-04-05 08:08] LABS: Basophils % 0.2 %; Eosinophils % 0.3 %; Hematocrit 49.5 % (37.0-47.0); Hemoglobin 15.2 g/dL (11.5-15.3); Lymphocytes # 2.4 10^3/uL (0.8-4.8); Lymphocytes % 18.1 %; Mean Corpuscular HGB Conc 30.7 g/dL (30.0-36.0); Mean Corpuscular Hemoglobin 25.5 pg (28.0-34.0); Mean Corpuscular Volume 83.1 fL (81-99); Mean Platelet Volume 12.9 fL (7.4-10.4); Monocytes # 1.3 10^3/uL (0.2-0.9); Monocytes % 9.8 %; Neutrophils # 9.32 10^3/uL (1.8-7.7); Neutrophils % 70.9 %; Nucleated Red Blood Cells % 0 %; Platelet Count 256 10^3/cmm (130-400); Red Blood Count 5.96 10^6/uL (4.1-5.3); Red Cell Distribution Width 18.5 % (12.1-15.1); White Blood Count 13.1 10^3/uL (4.0-10.0)
[2021-04-05 08:31] LABS: Alanine Aminotransferase 54 U/L (0-33); Albumin Level 3.5 g/dL (3.5-5.2); Alkaline Phosphatase 146 IU/L (35-105); Anion Gap 16.4 (5-19); Aspartate Amino Transferase 37 U/L (0-32); Blood Urea Nitrogen 17 mg/dL (6-20); C Reactive Protein 2.4 mg/L (0.0-4.9); Calcium 8.6 mg/dL (8.5-10.5); Carbon Dioxide 27 mmol/L (22-29); Chloride 96 mmol/L (98-107); Globulin 3.4 g/dL (1.3-4.6); Glomerular Filtration Rate 136.6 mL/min (90-130); Glucose 183 mg/dL (65-115); Osmolality Calculated 286 mOsm/kg (285-295); Phosphorus 3.8 mg/dL (2.5-4.5); Potassium 4.4 mmol/L (3.5-5.1); Sodium 135 mmol/L (136-145); Total Bilirubin 0.4 mg/dL (0.15-1.2); Total Protein 6.9 g/dL (6.6-8.7)
[2021-04-05 09:05] LABS: Procalcitonin 0.07 ng/mL (0-0.5)
[2021-04-05] MEDS: fluconazole 100 mg Tablet 200 MG PO (10:13)
[2021-04-05] MEDS: zinc gluconate 50 mg Tablet PO (10:13)
[2021-04-05] MEDS: doxycycline 100 mg Tablet PO ×2 (10:13→20:01)
[2021-04-05] MEDS: ascorbic acid 500 mg Tablet PO ×2 (10:13→20:02)
[2021-04-05] MEDS: cetirizine 10 mg Tablet PO (10:14)
[2021-04-05] MEDS: baclofen 10 mg Tablet 5 MG PO ×3 (10:14→20:57)
[2021-04-05] MEDS: duloxetine 20 mg Capsule 40 MG PO (10:14)
[2021-04-05] MEDS: docusate sodium 100 mg Capsule PO ×2 (10:14→20:01)
[2021-04-05] MEDS: polyethylene glycol 3350 Pkt 17 gm PO (10:18)
[2021-04-05] MEDS: sodium chloride 0.9% 1,000 ML 75 ML IV (10:19)
[2021-04-05] MEDS: sennosides-docusate Tablet 1 TAB PO ×2 (10:27→20:01)
[2021-04-05] MEDS: dexamethasone 4 mg/mL INJ 6 MG IVP (10:46)
--- NOTE | 2021-04-05 11:25 | PM.PN ---
Subjective Subjective: Interval history: This morning patient was seen, she is happy that she is down to 15 L, she does tell me that she is quite constipated, Vitals/I&O/Wt Last Vital Signs Temp 97.9 F 04/05/21 07:33 Pulse 85 04/05/21 08:52 Resp 20 H 04/05/21 08:52 BP 134/90 04/05/21 07:33 Pulse Ox 89 L 04/05/21 08:52 04/04/21 04/05/21 04/05/21 22:59 06:59 14:59 Intake Total 660 / 760 100 / 860 340 / 340 Output Total 1200 / 1200 Balance 660 / 760 -1100 / -340 340 / 340 Weight last 48 hrs Weight 144.605 kg Weight 144.605 kg Physical Exam Const: COMMON NORMALS: no acute distress and patient oriented x3 HENMT: COMMON NORMALS: normocephalic HEAD & SCALP: normocephalic Resp: COMMON NORMALS: normal respiratory effort, No retractions, No use of accessory muscles and clear to auscultation bilaterally AUSCULTATION: clear to auscultation bilaterally Cardio: COMMON NORMALS: regular rate, regular rhythm, S1 normal heart sound present and S2 normal heart sound present RATE: regular rate RHYTHM: regular rhythm HEART SOUNDS: S1 normal heart sound present and S2 normal heart sound present GI: COMMON NORMALS: Normal to inspection, nondistended, normoactive bowel sounds present, Soft to palpation and non-tender PALPATION: Yes Soft to palpation Extremity: COMMON NORMALS: no pedal edema Neuro: COMMON NORMALS: patient oriented x3 Psych: COMMON NORMALS: mental status grossly normal Urinary Catheter Management^: Matthews: Cath Placed During This Visit: yes, but has since been removed by the nurse Reason for Continuing Indwelling Catheter: Decision to DC Catheter Urinary Catheter Date of Insertion: 03/23/21 Urinary Catheter Time of Insertion: 16:47 Date Urinary Catheter Removed: 04/02/21 Time Urinary Catheter Discontinued: 16:00 Data : 04/05/21 04:47 04/05/21 04:47 A&P Assessment and plan (1) COVID-19: Clinically patient looks well this morning, a bit short of breath with exertion more than usual, however her oxygen requirements have decreased just to 15 L She is -10.9 L, start gentle IV hydration at 75 cc an hour for 24 hours s/p remdesivir 03/23-03/27 Continue dexamethasone 6 mg IV every 24 hours 1 dose of Tocilizumab given 03/23, Currently on Primaxin We will add fungal series given her type 2 diabetes Repeat blood cultures, sputum cultures, urine cultures Blood cultures negative to date MRSA PCR negative. Bacterial antigen panel negative. High flow oxygen wean as tolerated Appreciate pulmonary consultation Pulmonary toilet, incentive spirometer, flutter valve Encourage prone positioning Wean oxygen as tolerated Hold diuresis for now Given anxiety start low-dose Klonopin Plan for today, wean oxygen as tolerated, monitor clinical status, IV fluids Status: Acute (2) Acute respiratory failure: Status: Acute Qualifiers: Respiratory failure complication: hypoxia Qualified Code(s): J96.01 - Acute respiratory failure with hypoxia (3) Asthma: No evidence of exacerbation currently. Continue pulmonary toilet Status: Chronic Qualifiers: Asthma severity: mild Asthma persistence: intermittent Asthma complication type: uncomplicated Qualified Code(s): J45.20 - Mild intermittent asthma, uncomplicated (4) ARDS (adult respiratory distress syndrome): Status: Acute Additional A&P Information Diabetes mellitus. Had an episode of hypoglycemia, currently on Levemir 120 units twice daily, insulin sliding scale, NovoLog on hold Obesity. TSH checked and normal Transaminitis. Hepatitis panel negative. Abdominal ultrasound demonstrates likely cyst. AFP without significant elevation Urine culture grew Klebsiella, which is sensitive to Zosyn. Status post treatment. Chronic pain syndrome. Has pain pump with morphine and bupivacaine. This will continue currently. 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
[2021-04-05] MEDS: enoxaparin 40 mg/0.4 mL Syringe SUBCUT (20:01)
[2021-04-05 20:12] LABS: Glucose Point of Care 321 mg/dL (70-110)
[2021-04-05] MEDS: aspirin 81 mg EC Tablet PO (20:57)
[2021-04-05] MEDS: pantoprazole DR 40 mg Tablet PO (20:57)
[2021-04-05] MEDS: atorvastatin 40 mg Tablet 20 MG PO (20:57)
[2021-04-05 21:14] LABS: Glucose Point of Care 171 mg/dL (70-110)
[2021-04-06] VITALS (10 sets, daily range): BP systolic 139–172; BP diastolic 74–88; PULSE 59–88; RESP 14–22; TEMP 36.4–36.7; O2SAT 85–94
[2021-04-06 01:00] LABS: Glucose Point of Care 275 mg/dL (70-110)
[2021-04-06] MEDS: sodium chloride 0.9% 1,000 ML 75 ML IV (01:44)
[2021-04-06 06:10] LABS: Basophils % 0.2 %; Eosinophils % 0.2 %; Hematocrit 47.3 % (37.0-47.0); Hemoglobin 14.5 g/dL (11.5-15.3); Lymphocytes # 2.4 10^3/uL (0.8-4.8); Lymphocytes % 18.5 %; Mean Corpuscular HGB Conc 30.7 g/dL (30.0-36.0); Mean Corpuscular Hemoglobin 25.5 pg (28.0-34.0); Mean Corpuscular Volume 83.3 fL (81-99); Mean Platelet Volume 12.5 fL (7.4-10.4); Monocytes # 1.4 10^3/uL (0.2-0.9); Monocytes % 10.7 %; Neutrophils # 8.97 10^3/uL (1.8-7.7); Neutrophils % 69.8 %; Nucleated Red Blood Cells % 0 %; Platelet Count 232 10^3/cmm (130-400); Red Blood Count 5.68 10^6/uL (4.1-5.3); Red Cell Distribution Width 18.6 % (12.1-15.1); White Blood Count 12.9 10^3/uL (4.0-10.0)
[2021-04-06 06:41] LABS: Alanine Aminotransferase 56 U/L (0-33); Albumin Level 3.3 g/dL (3.5-5.2); Alkaline Phosphatase 129 IU/L (35-105); Anion Gap 13.8 (5-19); Aspartate Amino Transferase 37 U/L (0-32); Blood Urea Nitrogen 22 mg/dL (6-20); C Reactive Protein 2.2 mg/L (0.0-4.9); Calcium 8.3 mg/dL (8.5-10.5); Carbon Dioxide 27 mmol/L (22-29); Chloride 99 mmol/L (98-107); Glomerular Filtration Rate 176.8 mL/min (90-130); Glucose 219 mg/dL (65-115); Magnesium 2.1 mg/dL (1.7-2.3); Osmolality Calculated 290 mOsm/kg (285-295); Potassium 4.8 mmol/L (3.5-5.1); Sodium 135 mmol/L (136-145); Total Bilirubin 0.4 mg/dL (0.15-1.2); Total Protein 6.3 g/dL (6.6-8.7)
[2021-04-06 06:46] LABS: Glucose Point of Care 218 mg/dL (70-110)
[2021-04-06 06:51] LABS: Procalcitonin 0.06 ng/mL (0-0.5)
[2021-04-06] MEDS: albuterol 8 gm MDI 1 PUFF INHALATION ×3 (08:40→22:00)
[2021-04-06] MEDS: cetirizine 10 mg Tablet PO (09:42)
[2021-04-06] MEDS: baclofen 10 mg Tablet 5 MG PO ×3 (09:42→21:07)
[2021-04-06] MEDS: fluconazole 100 mg Tablet 200 MG PO (09:43)
[2021-04-06] MEDS: docusate sodium 100 mg Capsule PO ×2 (09:43→18:59)
[2021-04-06] MEDS: ascorbic acid 500 mg Tablet PO ×2 (09:43→19:07)
[2021-04-06] MEDS: doxycycline 100 mg Tablet PO ×2 (09:44→18:59)
[2021-04-06] MEDS: duloxetine 20 mg Capsule 40 MG PO (09:44)
[2021-04-06] MEDS: zinc gluconate 50 mg Tablet PO (09:44)
[2021-04-06] MEDS: polyethylene glycol 3350 Pkt 17 gm PO (09:44)
[2021-04-06] MEDS: sennosides-docusate Tablet 1 TAB PO ×2 (09:44→18:59)
[2021-04-06] MEDS: dexamethasone 4 mg/mL INJ 6 MG IVP (09:48)
--- NOTE | 2021-04-06 09:51 | PC.CHAP ---
Pastoral Care Encounter/Spiritual Assessment Type of Contact [] Declined school adjustment counselor visit [] Patient/Family/Request visit [] Outpatient visit [] Follow-up visit [] Physician referral [] Code/Alert [x] Routine visit [] Staff referral [] Actively dying [] Patient sleeping [] Family support [] [] Out of room [] Palliative care [] [] Receiving care in room [] Pre-surgical visit [] Trauma [] Long length of stay [] ICU visit [x] Other:covid Relational/Emotional Strength [] Patient feels connected with others/family/visitors/staff [] Distress [] Loneliness/isolation [] Abandonment Spirituality of Patient [] Person of Barbara [] Attends Alevism of their Barbara [] Believes in Prayer [] Reads Bible or Cheondoism materials [] There are Spiritual issues to be addressed Corporate Quality Assurance Manager 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 [x] Prayer [] Active listening [] Non-anxious presence [] Spiritual/emotional support [] Crisis/trauma care [] Spiritual counseling [] Bereavement support [] Provided bereavement packet [] Provided Bible/devotional materials [] Provided toy/stuffed animal, coloring book to patient or family member [] Provided Communion [] Anointing/[place] [] Salvation [x] Completed spiritual assessment [] Other: Impact on Illness or Injury [] Angry [] Fearful [] Anxious [] Often cries [] Exhaustion [] Unable to work [] Unable to attend sabianist [] Unable to walk/stand [] Unable to read [] Unable to drive [] Unable to eat/drink [] Unable to sleep [] Unable to be with family [] Patient intubated [] Other: Summary Time spent with patient
[2021-04-06 11:47] LABS: Glucose Point of Care 307 mg/dL (70-110)
--- NOTE | 2021-04-06 13:08 | PM.PN ---
Subjective Subjective: Interval history: Patient was seen this morning, she is on 15 L, she is motivated about going home, overall she is doing better Medications: Reviewed: Yes Vitals/I&O/Wt Last Vital Signs Temp 97.9 F 04/06/21 11:50 Pulse 64 04/06/21 11:50 Resp 14 04/06/21 11:50 BP 141/74 04/06/21 11:50 Pulse Ox 90 04/06/21 11:50 04/05/21 04/06/21 04/06/21 22:59 06:59 14:59 Intake Total 240 / 580 1480 / 2060 607.5 / 607.5 Balance 240 / 580 1480 / 2060 607.5 / 607.5 Weight last 48 hrs Weight 146.102 kg Weight 144.605 kg Physical Exam Const: COMMON NORMALS: no acute distress and patient oriented x3 OTHER: Facial plethora, with gtz facies Neck/C-Spine: COMMON NORMALS: no JVD Resp: COMMON NORMALS: normal respiratory effort, No retractions, No use of accessory muscles and clear to auscultation bilaterally AUSCULTATION: clear to auscultation bilaterally Cardio: COMMON NORMALS: no JVD, regular rate, regular rhythm, S1 normal heart sound present and S2 normal heart sound present RATE: regular rate RHYTHM: regular rhythm HEART SOUNDS: S1 normal heart sound present and S2 normal heart sound present GI: COMMON NORMALS: Normal to inspection, nondistended, normoactive bowel sounds present, Soft to palpation and non-tender PALPATION: Yes Soft to palpation Extremity: COMMON NORMALS: no pedal edema Neuro: COMMON NORMALS: patient oriented x3 Psych: COMMON NORMALS: mental status grossly normal Urinary Catheter Management^: Matthews: Cath Placed During This Visit: yes, but has since been removed by the nurse Reason for Continuing Indwelling Catheter: Decision to DC Catheter Urinary Catheter Date of Insertion: 03/23/21 Urinary Catheter Time of Insertion: 16:47 Date Urinary Catheter Removed: 04/02/21 Time Urinary Catheter Discontinued: 16:00 Data : 04/06/21 05:18 04/06/21 05:18 Micro: Microbiology 03/31/21 12:28 Blood Culture - Final Blood NO GROWTH AFTER 5 DAYS 03/31/21 12:25 Blood Culture - Final Blood NO GROWTH AFTER 5 DAYS A&P Assessment and plan (1) COVID-19: Clinically patient looks well this morning, a bit short of breath with exertion more than usual, however her oxygen requirements have decreased just to 15 L She is -8.5 L, IV hydration has been stopped s/p remdesivir 03/23-03/27 Continue dexamethasone 6 mg IV every 24 hours, however does have facial plethora gtz facies, consider discontinuing earlier 1 dose of Tocilizumab given 03/23, Off Primaxin on doxycycline Fungal series pending Repeat blood cultures, sputum cultures, urine cultures, all negative Blood cultures negative to date MRSA PCR negative. Bacterial antigen panel negative. High flow oxygen wean as tolerated Appreciate pulmonary consultation Pulmonary toilet, incentive spirometer, flutter valve Encourage prone positioning Wean oxygen as tolerated Hold diuresis for now Given anxiety start low-dose Klonopin Plan for today, wean oxygen as tolerated, monitor clinical status, hopefully can discharge the next 24 hours Status: Acute (2) Acute respiratory failure: Status: Acute Qualifiers: Respiratory failure complication: hypoxia Qualified Code(s): J96.01 - Acute respiratory failure with hypoxia (3) Asthma: No evidence of exacerbation currently. Continue pulmonary toilet Status: Chronic Qualifiers: Asthma severity: mild Asthma persistence: intermittent Asthma complication type: uncomplicated Qualified Code(s): J45.20 - Mild intermittent asthma, uncomplicated (4) ARDS (adult respiratory distress syndrome): Status: Acute Additional A&P Information Diabetes mellitus. Had an episode of hypoglycemia, currently on Levemir 120 units twice daily, insulin sliding scale, NovoLog on hold Obesity. TSH checked and normal Transaminitis. Hepatitis panel negative. Abdominal ultrasound demonstrates likely cyst. AFP without significant elevation Urine culture grew Klebsiella, which is sensitive to Zosyn. Status post treatment. Chronic pain syndrome. Has pain pump with morphine and bupivacaine. This will continue currently. 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
[2021-04-06 15:39] LABS: Glucose Point of Care 331 mg/dL (70-110)
--- NOTE | 2021-04-06 17:41 | PC.RESP ---
RT Shift Note Frequent safety and respiratory rounds continue. Orders completed as indicated. Patient monitored pre and post treatments throughout shift. Patient tolerated treatments appropriately. Condition did not change. Patient and/or field marketing representative educated on respiratory treatment and medications. Patient and/or field marketing representative verbalized understanding. Will continue to monitor patient progress.
[2021-04-06] MEDS: enoxaparin 40 mg/0.4 mL Syringe SUBCUT (18:59)
[2021-04-06] MEDS: aspirin 81 mg EC Tablet PO (21:03)
[2021-04-06] MEDS: pantoprazole DR 40 mg Tablet PO (21:03)
[2021-04-06] MEDS: atorvastatin 40 mg Tablet 20 MG PO (21:07)
[2021-04-06] MEDS: CLONazepam 0.5 mg Tablet 0.25 MG PO (21:09)
[2021-04-06 23:18] LABS: Glucose Point of Care 288 mg/dL (70-110)
[2021-04-07] VITALS (14 sets, daily range): BP systolic 105–152; BP diastolic 75–94; PULSE 53–90; RESP 16–24; TEMP 36.6–37; O2SAT 21–98
[2021-04-07 02:20] LABS: Glucose Point of Care 362 mg/dL (70-110)
[2021-04-07 03:48] LABS: Glucose Point of Care 176 mg/dL (70-110)
[2021-04-07] MEDS: albuterol 8 gm MDI 1 PUFF INHALATION ×3 (03:48→22:10)
[2021-04-07] MEDS: atenolol 50 mg Tablet 25 MG PO (05:05)
--- NOTE | 2021-04-07 06:34 | PC.NUTR ---
Nutrition follow up: Noted 8 meals missing from EMR in past 5 days--unclear average intake. Recommend to continue providing fresh fruit and sandwiches and other meal preferences as appropriate, and encouraging po intake at meals. Recommend encouragement of fluids r/t constipation, as well as monitoring for aspiration risk r/t nursing note indicating falling asleep while swallowing applesauce. See full RD assessment for further details.
[2021-04-07 06:40] LABS: Glucose Point of Care 161 mg/dL (70-110)
[2021-04-07 07:12] LABS: Basophils % 0.1 %; Eosinophils % 0.3 %; Hematocrit 50.7 % (37.0-47.0); Hemoglobin 15.4 g/dL (11.5-15.3); Lymphocytes # 2.5 10^3/uL (0.8-4.8); Lymphocytes % 20.1 %; Mean Corpuscular HGB Conc 30.4 g/dL (30.0-36.0); Mean Corpuscular Hemoglobin 25.5 pg (28.0-34.0); Mean Corpuscular Volume 83.8 fL (81-99); Mean Platelet Volume 12.3 fL (7.4-10.4); Monocytes # 1.4 10^3/uL (0.2-0.9); Monocytes % 11.5 %; Neutrophils # 8.22 10^3/uL (1.8-7.7); Neutrophils % 67.6 %; Nucleated Red Blood Cells % 0 %; Platelet Count 244 10^3/cmm (130-400); Red Blood Count 6.05 10^6/uL (4.1-5.3); Red Cell Distribution Width 18.9 % (12.1-15.1); White Blood Count 12.2 10^3/uL (4.0-10.0)
[2021-04-07 07:42] LABS: Alanine Aminotransferase 57 U/L (0-33); Albumin Level 3.6 g/dL (3.5-5.2); Alkaline Phosphatase 135 IU/L (35-105); Anion Gap 14.8 (5-19); Aspartate Amino Transferase 28 U/L (0-32); Blood Urea Nitrogen 22 mg/dL (6-20); C Reactive Protein 2.2 mg/L (0.0-4.9); Calcium 8.9 mg/dL (8.5-10.5); Carbon Dioxide 31 mmol/L (22-29); Chloride 93 mmol/L (98-107); Globulin 2.9 g/dL (1.3-4.6); Glomerular Filtration Rate 136.6 mL/min (90-130); Glucose 162 mg/dL (65-115); Magnesium 2.1 mg/dL (1.7-2.3); Osmolality Calculated 285 mOsm/kg (285-295); Phosphorus 4.4 mg/dL (2.5-4.5); Potassium 4.8 mmol/L (3.5-5.1); Sodium 134 mmol/L (136-145); Total Bilirubin 0.5 mg/dL (0.15-1.2); Total Protein 6.5 g/dL (6.6-8.7)
[2021-04-07 07:56] LABS: Procalcitonin 0.03 ng/mL (0-0.5)
[2021-04-07] MEDS: polyethylene glycol 3350 Pkt 17 gm PO (08:37)
[2021-04-07] MEDS: sennosides-docusate Tablet 1 TAB PO ×2 (08:37→17:48)
[2021-04-07] MEDS: doxycycline 100 mg Tablet PO ×2 (08:37→17:47)
[2021-04-07] MEDS: fluconazole 100 mg Tablet 200 MG PO (08:37)
[2021-04-07] MEDS: duloxetine 20 mg Capsule 40 MG PO (08:37)
[2021-04-07] MEDS: dexamethasone 4 mg/mL INJ 6 MG IVP (08:37)
[2021-04-07] MEDS: zinc gluconate 50 mg Tablet PO (08:37)
[2021-04-07] MEDS: cetirizine 10 mg Tablet PO (08:38)
[2021-04-07] MEDS: docusate sodium 100 mg Capsule PO ×2 (08:38→17:48)
[2021-04-07] MEDS: ascorbic acid 500 mg Tablet PO ×2 (08:38→17:48)
[2021-04-07] MEDS: baclofen 10 mg Tablet 5 MG PO ×3 (08:39→20:34)
[2021-04-07 11:48] LABS: Glucose Point of Care 250 mg/dL (70-110)
[2021-04-07 15:50] LABS: Glucose Point of Care 275 mg/dL (70-110)
--- NOTE | 2021-04-07 16:31 | P.PN_ITS ---
Subjective Subjective: Interval history: Patient was requiring 15 L of O2 via nasal cannula. Oxygen saturations were in the low 90s. Unable to wear CPAP overnight. No fever chills. No nausea vomiting. Medications: Reviewed: Yes Vitals/I&O/Wt Last Vital Signs Temp 97.8 F 04/07/21 16:00 Pulse 60 04/07/21 16:00 Resp 19 H 04/07/21 16:00 BP 138/81 04/07/21 16:00 Pulse Ox 91 04/07/21 16:00 04/07/21 04/07/21 04/07/21 06:59 14:59 22:59 Intake Total 480 / 1327.5 600 / 600 Balance 480 / -3672.5 600 / 600 Weight last 48 hrs Weight 145.467 kg Weight 146.102 kg Physical Exam Narrative: EXAM NARRATIVE: GEN: Awake, alert and oriented, no acute distress CVS: S1S2 N RS: CTA B/L On high-flow Abd: Soft, nt/nd , bs+ HAZARDOUS WASTE TECHNICIAN: no focal neuro deficits Urinary Catheter Management^: Matthews: Cath Placed During This Visit: yes, but has since been removed by the nurse Reason for Continuing Indwelling Catheter: Decision to DC Catheter Urinary Catheter Date of Insertion: 03/23/21 Urinary Catheter Time of Insertion: 16:47 Date Urinary Catheter Removed: 04/02/21 Time Urinary Catheter Discontinued: 16:00 Data : 04/07/21 05:40 04/07/21 05:40 A&P Assessment and plan (1) COVID-19: s/p remdesivir 03/23-03/27 Continue dexamethasone 6 mg IV every 24 hours, however does have facial plethora gtz facies, consider discontinuing earlier 1 dose of Tocilizumab given 03/23, Off Primaxin on doxycycline Fungal series pending Repeat blood cultures, sputum cultures, urine cultures, all negative Blood cultures negative to date MRSA PCR negative. Bacterial antigen panel negative. Appreciate pulmonary consultation Pulmonary toilet, incentive spirometer, flutter valve Encourage prone positioning Wean oxygen as tolerated Hold diuresis for now Given anxiety start low-dose Klonopin Transition to heated high-flow Repeat COVID-19 labs in a.m. Plan for today, wean oxygen as tolerated, monitor clinical status, hopefully can discharge the next 24 hours Status: Acute (2) Acute respiratory failure: Status: Acute Qualifiers: Respiratory failure complication: hypoxia Qualified Code(s): J96.01 - A cute respiratory failure with hypoxia (3) Asthma: No evidence of exacerbation currently. Continue pulmonary toilet Status: Chronic Qualifiers: Asthma severity: mild Asthma persistence: intermittent Asthma complication type: uncomplicated Qualified Code(s): J45.20 - Mild intermittent asthma, uncomplicated (4) ARDS (adult respiratory distress syndrome): Status: Acute Additional A&P Information Diabetes mellitus. Currently on Levemir 120 units twice daily, insulin sliding scale, NovoLog on hold Obesity. TSH checked and normal Transaminitis. Hepatitis panel negative. Abdominal ultrasound demonstrates likely cyst. AFP without significant elevation Urine culture grew Klebsiella, which is sensitive to Zosyn. Status post treatment. Chronic pain syndrome. Has pain pump with morphine and bupivacaine. Full code Lovenox for DVT prophylaxis Attestations Medical Necessity Statement*: required additional hospitalization for management of COVID-19 pneumonia requiring high-flow nasal cannula Time Spent in Patient Care: Greater than 35 minutes (>than 50% of time spent in counselling and/or direct pt care on unit) . Coding Level of Care Code Acute Cutting And Boning Supervisor for [facility] Diagnoses COVID-19 U07.1 Acute respiratory failure J96.01 Respiratory failure complication: hypoxia Asthma J45.20 Asthma severity: mild Asthma persistence: intermittent Asthma complication type: uncomplicated ARDS (adult respiratory distress syndrome) J80
[2021-04-07] MEDS: enoxaparin 40 mg/0.4 mL Syringe SUBCUT (17:48)
--- NOTE | 2021-04-07 18:29 | PC.NURSE ---
Shift Note Patient would like to have her PRN xanax at bedtime. Patient did well with education to take things slow when getting up to the bedside commode. Currently still on 15L heated hi flow. Frequent safety and comfort rounds continue. Orders and/or nursing care completed as indicated. Patient monitored for response to intervention and treatment(s). Education provided includes use of bedside commode and incentive spirometer. Patient and/or environmental marketing representative verbalized understanding. Will continue to monitor.
[2021-04-07] MEDS: aspirin 81 mg EC Tablet PO (20:34)
[2021-04-07] MEDS: pantoprazole DR 40 mg Tablet PO (20:34)
[2021-04-07] MEDS: atorvastatin 40 mg Tablet 20 MG PO (20:34)
[2021-04-07 21:35] LABS: Glucose Point of Care 287 mg/dL (70-110)
[2021-04-07] MEDS: CLONazepam 0.5 mg Tablet 0.25 MG PO (23:38)
[2021-04-08] VITALS (12 sets, daily range): BP systolic 130–154; BP diastolic 83–97; PULSE 66–81; RESP 14–24; TEMP 36.6–36.8; O2SAT 90–93
[2021-04-08] MEDS: albuterol 8 gm MDI 1 PUFF INHALATION ×4 (03:56→21:45)
--- NOTE | 2021-04-08 05:24 | PC.RESP ---
RT Shift Note Frequent safety and respiratory rounds continue. Orders completed as indicated. Patient monitored pre and post treatments throughout shift. Patient tolerated treatments appropriately. Condition did not change. Patient and/or technology sales representative educated on respiratory treatment and medications. Patient and/or technology sales representative verbalized understanding. Will continue to monitor patient progress.
[2021-04-08] MEDS: atenolol 50 mg Tablet 25 MG PO (05:41)
[2021-04-08 06:17] LABS: Glucose Point of Care 276 mg/dL (70-110)
[2021-04-08] MEDS: fluconazole 100 mg Tablet 200 MG PO (08:16)
[2021-04-08] MEDS: doxycycline 100 mg Tablet PO ×2 (08:16→17:39)
[2021-04-08] MEDS: polyethylene glycol 3350 Pkt 17 gm PO (08:17)
[2021-04-08] MEDS: baclofen 10 mg Tablet 5 MG PO ×3 (08:17→22:36)
[2021-04-08] MEDS: duloxetine 20 mg Capsule 40 MG PO (08:17)
[2021-04-08] MEDS: docusate sodium 100 mg Capsule PO ×2 (08:17→17:40)
[2021-04-08] MEDS: zinc gluconate 50 mg Tablet PO (08:17)
[2021-04-08] MEDS: dexamethasone 4 mg/mL INJ 6 MG IVP (08:17)
[2021-04-08] MEDS: cetirizine 10 mg Tablet PO (08:17)
[2021-04-08] MEDS: sennosides-docusate Tablet 1 TAB PO ×2 (08:17→17:39)
[2021-04-08] MEDS: ascorbic acid 500 mg Tablet PO ×2 (08:17→17:39)
--- NOTE | 2021-04-08 11:08 | PC.CHAP ---
Pastoral Care Encounter/Spiritual Assessment Type of Contact [] Declined russian language instructor visit [] Patient/Family/Request visit [] Outpatient visit [] Follow-up visit [] Physician referral [] Code/Alert [x] Routine visit [] Staff referral [] Actively dying [] Patient sleeping [] Family support [] [] Out of room [] Palliative care [] [] Receiving care in room [] Pre-surgical visit [] Trauma [] Long length of stay [] ICU visit [x] Other: 2A Relational/Emotional Strength [] Patient feels connected with others/family/visitors/staff [] Distress [] Loneliness/isolation [] Abandonment Spirituality of Patient [] Person of Barbara [] Attends Druze of their Barbara [] Believes in Prayer [] Reads Bible or Sikhism materials [] There are Spiritual issues to be addressed Compression Molding Machine Operator 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 [x] Prayer [] Active listening [] Non-anxious presence [] Spiritual/emotional support [] Crisis/trauma care [] Spiritual counseling [] Bereavement support [] Provided bereavement packet [] Provided Bible/devotional materials [] Provided toy/stuffed animal, coloring book to patient or family member [] Provided Communion [] Anointing/[place] [] Salvation [x] Completed spiritual assessment [] Other: Impact on Illness or Injury [] Angry [] Fearful [] Anxious [] Often cries [] Exhaustion [] Unable to work [] Unable to attend restoration [] Unable to walk/stand [] Unable to read [] Unable to drive [] Unable to eat/drink [] Unable to sleep [] Unable to be with family [] Patient intubated [] Other: Summary Time spent with patient
[2021-04-08 11:36] LABS: Glucose Point of Care 268 mg/dL (70-110)
--- NOTE | 2021-04-08 15:56 | P.PN_ITS ---
Subjective Subjective: Interval history: Patient stated she was feeling better today No fever , chills, nausea or vomiting. Medications: Reviewed: Yes Vitals/I&O/Wt Last Vital Signs Temp 98.1 F 04/08/21 12:00 Pulse 81 04/08/21 12:00 Resp 22 H 04/08/21 12:00 BP 130/84 04/08/21 12:00 Pulse Ox 90 04/08/21 12:00 04/08/21 04/08/21 04/08/21 06:59 14:59 22:59 Intake Total 100 / 940 480 / 480 Output Total 600 / 1400 Balance -500 / -460 480 / 480 Weight last 48 hrs Weight 146.374 kg Weight 145.467 kg Physical Exam Narrative: EXAM NARRATIVE: GEN: Awake, alert and oriented, no acute distress CVS: S1S2 N RS: CTA B/L On high-flow Abd: Soft, nt/nd , bs+ IT SECURITY CONSULTANT: no focal neuro deficits Urinary Catheter Management^: Matthews: Cath Placed During This Visit: yes, but has since been removed by the nurse Reason for Continuing Indwelling Catheter: Decision to DC Catheter Urinary Catheter Date of Insertion: 03/23/21 Urinary Catheter Time of Insertion: 16:47 Date Urinary Catheter Removed: 04/02/21 Time Urinary Catheter Discontinued: 16:00 Data : 04/07/21 05:40 04/07/21 05:40 A&P Assessment and plan (1) COVID-19: s/p remdesivir 03/23-03/27 Continue dexamethasone 6 mg IV every 24 hours, however does have facial plethora gtz facies, consider discontinuing earlier 1 dose of Tocilizumab given 03/23, Off Primaxin on doxycycline Fungal series - yeast Repeat blood cultures, sputum cultures, urine cultures, all negative Blood cultures negative to date MRSA PCR negative. Bacterial antigen panel negative. Appreciate pulmonary consultation Pulmonary toilet, incentive spirometer, flutter valve Encourage prone positioning Wean oxygen as tolerated Hold diuresis for now Given anxiety start low-dose Klonopin Transition to heated high-flow Repeat labs in am Plan for today, wean oxygen as tolerated, monitor clinical status, hopefully can discharge the next 24 hours Status: Acute (2) Acute respiratory failure: Status: Acute Qualifiers: Respiratory failure complication: hypoxia Qualified Code(s): J96.01 - Acute respiratory failure with hypoxia (3) Asthma: No evidence of exacerbation currently. Continue pulmonary toilet Status: Chronic Qualifiers: Asthma complication type: uncomplicated Asthma persistence: intermittent Asthma severity: mild Qualified Code(s): J45.20 - Mild intermittent asthma, uncomplicated (4) ARDS (adult respiratory distress syndrome): Status: Acute Additional A&P Information Diabetes mellitus. Currently on Levemir 120 units twice daily, insulin sliding scale, NovoLog on hold, may resume if glucose> 200 Obesity. TSH checked and normal Transaminitis. Hepatitis panel negative. Abdominal ultrasound demonstrates likely cyst. AFP without significant elevation Urine culture grew Klebsiella, which is sensitive to Zosyn. Status post treatment. Chronic pain syndrome. Has pain pump with morphine and bupivacaine. Full code Lovenox for DVT prophylaxis Attestations Medical Necessity Statement*: Will require further hospoitalization for management of covid19 pneumonia, uti, rq HFNC Time Spent in Patient Care: Greater than 35 minutes (>than 50% of time spent in counselling and/or direct pt care on unit) . Coding Level of Care Code Acute Coo for [facility] Diagnoses COVID-19 U07.1 Acute respiratory failure J96.01 Respiratory failure complication: hypoxia Asthma J45.20 Asthma complication type: uncomplicated Asthma persistence: intermittent Asthma severity: mild ARDS (adult respiratory distress syndrome) J80
[2021-04-08 17:17] LABS: Glucose Point of Care 285 mg/dL (70-110)
[2021-04-08] MEDS: enoxaparin 40 mg/0.4 mL Syringe SUBCUT (17:40)
--- NOTE | 2021-04-08 18:25 | PC.NURSE ---
Shift Note Frequent safety and comfort rounds continue. Orders and/or nursing care completed as indicated. Patient monitored for response to intervention and treatment(s). Education provided includes using the IS and flutter valve. Patient and/or primary care sales representative verbalized understanding. Will continue to monitor. Patient currently on 45L 65% heated hi-flow oxygen, sitting up and watching netflix. Had a desat episode when her Hi-flow tube came unplugged when patient was transferring to bed after being on the bedside commode. Found quickly and patient came back up with no issues.
[2021-04-08 20:26] LABS: Glucose Point of Care 309 mg/dL (70-110)
[2021-04-08] MEDS: atorvastatin 40 mg Tablet 20 MG PO (22:36)
[2021-04-08] MEDS: aspirin 81 mg EC Tablet PO (22:36)
[2021-04-08] MEDS: pantoprazole DR 40 mg Tablet PO (22:37)
[2021-04-09] VITALS (10 sets, daily range): BP systolic 118–164; BP diastolic 75–94; PULSE 61–100; RESP 15–22; TEMP 36.4–36.9; O2SAT 88–94
[2021-04-09] MEDS: atenolol 50 mg Tablet 25 MG PO (06:35)
[2021-04-09 06:48] LABS: Glucose Point of Care 148 mg/dL (70-110)
[2021-04-09 07:15] LABS: Basophils % 0.2 %; Eosinophils # 0.1 10^3/uL (0.0-0.8); Eosinophils % 0.7 %; Hematocrit 47.6 % (37.0-47.0); Hemoglobin 14.8 g/dL (11.5-15.3); Lymphocytes # 3.4 10^3/uL (0.8-4.8); Lymphocytes % 27.4 %; Mean Corpuscular HGB Conc 31.1 g/dL (30.0-36.0); Mean Corpuscular Hemoglobin 25.7 pg (28.0-34.0); Mean Corpuscular Volume 82.6 fL (81-99); Mean Platelet Volume 12.3 fL (7.4-10.4); Monocytes # 1.2 10^3/uL (0.2-0.9); Monocytes % 9.7 %; Neutrophils # 7.62 10^3/uL (1.8-7.7); Neutrophils % 61.6 %; Nucleated Red Blood Cells % 0 %; Platelet Count 251 10^3/cmm (130-400); Red Blood Count 5.76 10^6/uL (4.1-5.3); Red Cell Distribution Width 18.6 % (12.1-15.1); White Blood Count 12.4 10^3/uL (4.0-10.0)
[2021-04-09 07:26] LABS: Anion Gap 12.4 (5-19); Blood Urea Nitrogen 18 mg/dL (6-20); C Reactive Protein 2.3 mg/L (0.0-4.9); Calcium 8.4 mg/dL (8.5-10.5); Carbon Dioxide 30 mmol/L (22-29); Chloride 100 mmol/L (98-107); Glomerular Filtration Rate 136.6 mL/min (90-130); Glucose 173 mg/dL (65-115); Osmolality Calculated 292 mOsm/kg (285-295); Potassium 4.4 mmol/L (3.5-5.1); Sodium 138 mmol/L (136-145)
[2021-04-09 07:38] LABS: Ferritin 164 ng/mL (15-150)
[2021-04-09 07:43] LABS: Procalcitonin 0.07 ng/mL (0-0.5)
[2021-04-09] MEDS: sennosides-docusate Tablet 1 TAB PO ×2 (08:17→16:48)
[2021-04-09] MEDS: fluconazole 100 mg Tablet 200 MG PO (08:17)
[2021-04-09] MEDS: polyethylene glycol 3350 Pkt 17 gm PO (08:17)
[2021-04-09] MEDS: duloxetine 20 mg Capsule 40 MG PO (08:17)
[2021-04-09] MEDS: doxycycline 100 mg Tablet PO ×2 (08:17→16:47)
[2021-04-09] MEDS: docusate sodium 100 mg Capsule PO ×2 (08:17→16:48)
[2021-04-09] MEDS: dexamethasone 4 mg/mL INJ 6 MG IVP (08:18)
[2021-04-09] MEDS: zinc gluconate 50 mg Tablet PO (08:18)
[2021-04-09] MEDS: cetirizine 10 mg Tablet PO (08:18)
[2021-04-09] MEDS: baclofen 10 mg Tablet 5 MG PO ×3 (08:18→21:37)
[2021-04-09] MEDS: albuterol 8 gm MDI 1 PUFF INHALATION ×4 (08:23→21:00)
[2021-04-09] MEDS: ascorbic acid 500 mg Tablet PO ×2 (08:40→16:48)
[2021-04-09 11:38] LABS: Glucose Point of Care 297 mg/dL (70-110)
--- NOTE | 2021-04-09 13:59 | P.PN_ITS ---
Subjective Subjective: Interval history: No new clinical events overnight. No fever chills. Patient stated that she was feeling somewhat weak however no change in O2 levels. Requesting Tylenol for headache. Medications: Reviewed: Yes Vitals/I&O/Wt Last Vital Signs Temp 97.7 F 04/09/21 11:38 Pulse 84 04/09/21 11:38 Resp 17 04/09/21 11:38 BP 164/94 04/09/21 11:38 Pulse Ox 90 04/09/21 11:38 04/08/21 04/09/21 04/09/21 22:59 06:59 14:59 Intake Total 510 / 990 240 / 1230 840 / 840 Output Total 800 / 800 600 / 1400 Balance -290 / 190 -360 / -170 840 / 840 Weight last 48 hrs Weight 146.329 kg Weight 146.374 kg Physical Exam Narrative: EXAM NARRATIVE: GEN: Awake, alert and oriented, no acute distress CVS: S1S2 N RS: CTA B/L On high-flow Abd: Soft, nt/nd , bs+ SAFETY PROFESSIONAL: no focal neuro deficits Urinary Catheter Management^: Matthews: Cath Placed During This Visit: yes, but has since been removed by the nurse Reason for Continuing Indwelling Catheter: Decision to DC Catheter Urinary Catheter Date of Insertion: 03/23/21 Urinary Catheter Time of Insertion: 16:47 Date Urinary Catheter Removed: 04/02/21 Time Urinary Catheter Discontinued: 16:00 Data : 04/09/21 06:25 04/09/21 06:25 A&P Assessment and plan (1) COVID-19: s/p remdesivir 03/23-03/27 Continue dexamethasone 6 mg IV every 24 hours, however does have facial plethora gtz facies, consider discontinuing earlier 1 dose of Tocilizumab given 03/23, Off Primaxin on doxycycline Fungal series - yeast Repeat blood cultures, sputum cultures, urine cultures, all negative Blood cultures negative to date MRSA PCR negative. Bacterial antigen panel negative. Appreciate pulmonary consultation Pulmonary toilet, incentive spirometer, flutter valve Encourage prone positioning Wean oxygen as tolerated Hold diuresis for now Given anxiety start low-dose Klonopin continue heated high-flow Repeat labs in am No change to ongoing management. Plan for today, wean oxygen as tolerated, monitor clinical status, hopefully can discharge the next 24 hours Status: Acute (2) Acute respiratory failure: Status: Acute Qualifiers: Respiratory failure complication: hypoxia Qualified Code(s): J96.01 - Acute respiratory failure with hypoxia (3) Asthma: No evidence of exacerbation currently. Continue pulmonary toilet Status: Chronic Qualifiers: Asthma severity: mild Asthma persistence: intermittent Asthma complic ation type: uncomplicated Qualified Code(s): J45.20 - Mild intermittent asthma, uncomplicated (4) ARDS (adult respiratory distress syndrome): Status: Acute Additional A&P Information Diabetes mellitus. Currently on Levemir 120 units twice daily, insulin sliding scale, NovoLog on hold, may resume if glucose> 200 Obesity. TSH checked and normal Transaminitis. Hepatitis panel negative. Abdominal ultrasound demonstrates likely cyst. AFP without significant elevation Urine culture grew Klebsiella, which is sensitive to Zosyn. Status post treatment. Chronic pain syndrome. Has pain pump with morphine and bupivacaine. Full code Lovenox for DVT prophylaxis Attestations Medical Necessity Statement*: Will continue current hospitalizationFor management of respiratory failure due to COVID-19 pneumonia Time Spent in Patient Care: Greater than 35 minutes (>than 50% of time spent in counselling and/or direct pt care on unit) . Coding Level of Care Code Acute Advanced Practice Nurse Psychotherapist for [facility] Diagnoses COVID-19 U07.1 Acute respiratory failure J96.01 Respiratory failure complication: hypoxia Asthma J45.20 Asthma severity: mild Asthma persistence: intermittent Asthma complication type: uncomplicated ARDS (adult respiratory distress syndrome) J80
[2021-04-09] MEDS: CLONazepam 0.5 mg Tablet 0.25 MG PO (16:47)
[2021-04-09] MEDS: acetaminophen 325 mg Tablet 650 MG PO (16:48)
[2021-04-09 16:49] LABS: Glucose Point of Care 213 mg/dL (70-110)
[2021-04-09] MEDS: enoxaparin 40 mg/0.4 mL Syringe SUBCUT (16:49)
[2021-04-09 21:25] LABS: Glucose Point of Care 229 mg/dL (70-110)
[2021-04-09] MEDS: pantoprazole DR 40 mg Tablet PO (21:37)
[2021-04-09] MEDS: atorvastatin 40 mg Tablet 20 MG PO (21:37)
[2021-04-09] MEDS: aspirin 81 mg EC Tablet PO (21:37)
[2021-04-10] VITALS (13 sets, daily range): BP systolic 114–144; BP diastolic 69–95; PULSE 65–95; RESP 14–20; TEMP 36.4–37.1; O2SAT 85–96
--- NOTE | 2021-04-10 00:14 | PC.RESP ---
RT Shift Note Frequent safety and respiratory rounds continue. Orders completed as indicated. Patient monitored pre and post treatments throughout shift. Patient [Did.] tolerate treatments appropriately. Condition .DidNotChange]. Patient and/or construction sales representative educated on respiratory treatment and medications. Patient and/or construction sales representative [ResponseToTeaching]. Will continue to monitor patient progress.
[2021-04-10 00:48] LABS: Glucose Point of Care 154 mg/dL (70-110)
[2021-04-10 06:37] LABS: Basophils % 0.3 %; Eosinophils # 0.3 10^3/uL (0.0-0.8); Eosinophils % 1.8 %; Hematocrit 47.4 % (37.0-47.0); Hemoglobin 14.8 g/dL (11.5-15.3); Lymphocytes % 18.8 %; Mean Corpuscular HGB Conc 31.2 g/dL (30.0-36.0); Mean Corpuscular Hemoglobin 25.8 pg (28.0-34.0); Mean Corpuscular Volume 82.6 fL (81-99); Mean Platelet Volume 12.4 fL (7.4-10.4); Monocytes # 1.2 10^3/uL (0.2-0.9); Monocytes % 7.3 %; Neutrophils # 11.44 10^3/uL (1.8-7.7); Neutrophils % 71.4 %; Nucleated Red Blood Cells % 0 %; Platelet Count 216 10^3/cmm (130-400); Red Blood Count 5.74 10^6/uL (4.1-5.3); Red Cell Distribution Width 19.1 % (12.1-15.1)
[2021-04-10 06:39] LABS: Glucose Point of Care 115 mg/dL (70-110)
[2021-04-10] MEDS: atenolol 50 mg Tablet 25 MG PO (06:46)
[2021-04-10 06:58] LABS: Alanine Aminotransferase 68 U/L (0-33); Albumin Level 3.3 g/dL (3.5-5.2); Alkaline Phosphatase 135 IU/L (35-105); Anion Gap 13.3 (5-19); Aspartate Amino Transferase 33 U/L (0-32); Blood Urea Nitrogen 16 mg/dL (6-20); C Reactive Protein 2.7 mg/L (0.0-4.9); Calcium 8.3 mg/dL (8.5-10.5); Carbon Dioxide 29 mmol/L (22-29); Chloride 97 mmol/L (98-107); Globulin 2.7 g/dL (1.3-4.6); Glomerular Filtration Rate 136.6 mL/min (90-130); Glucose 109 mg/dL (65-115); Osmolality Calculated 282 mOsm/kg (285-295); Potassium 4.3 mmol/L (3.5-5.1); Sodium 135 mmol/L (136-145); Total Bilirubin 0.4 mg/dL (0.15-1.2)
[2021-04-10 07:11] LABS: Ferritin 146 ng/mL (15-150)
[2021-04-10 07:18] LABS: Procalcitonin 0.07 ng/mL (0-0.5)
[2021-04-10] MEDS: albuterol 8 gm MDI 1 PUFF INHALATION ×3 (08:05→20:41)
[2021-04-10] MEDS: doxycycline 100 mg Tablet PO ×2 (08:41→17:29)
[2021-04-10] MEDS: duloxetine 20 mg Capsule 40 MG PO (08:41)
[2021-04-10] MEDS: sennosides-docusate Tablet 1 TAB PO ×2 (08:41→17:29)
[2021-04-10] MEDS: fluconazole 100 mg Tablet 200 MG PO (08:41)
[2021-04-10] MEDS: cetirizine 10 mg Tablet PO (08:42)
[2021-04-10] MEDS: zinc gluconate 50 mg Tablet PO (08:42)
[2021-04-10] MEDS: dexamethasone 4 mg/mL INJ 6 MG IVP (08:42)
[2021-04-10] MEDS: docusate sodium 100 mg Capsule PO ×2 (08:42→17:29)
[2021-04-10] MEDS: polyethylene glycol 3350 Pkt 17 gm PO (08:42)
[2021-04-10] MEDS: ascorbic acid 500 mg Tablet PO ×2 (08:42→17:29)
[2021-04-10] MEDS: baclofen 10 mg Tablet 5 MG PO ×3 (08:43→21:55)
[2021-04-10 11:15] LABS: Glucose Point of Care 265 mg/dL (70-110)
--- NOTE | 2021-04-10 13:10 | P.PN_ITS ---
Subjective Subjective: Interval history: No new clinical events overnight Medications: Reviewed: Yes Vitals/I&O/Wt Last Vital Signs Temp 97.6 F 04/10/21 20:00 Pulse 67 04/10/21 20:52 Resp 18 04/10/21 20:52 BP 133/86 04/10/21 20:00 Pulse Ox 92 04/10/21 20:52 04/10/21 04/10/21 04/11/21 14:59 22:59 06:59 Intake Total 600 / 600 240 / 840 Balance 600 / 600 240 / 840 Weight last 48 hrs Weight 145.422 kg Weight 146.329 kg Physical Exam Narrative: EXAM NARRATIVE: GEN: Awake, alert and oriented, no acute distress CVS: S1S2 N RS: CTA B/L On high-flow Abd: Soft, nt/nd , bs+ BROADCAST MAINTENANCE TECHNICIAN: no focal neuro deficits Urinary Catheter Management^: Matthews: Cath Placed During This Visit: yes, but has since been removed by the nurse Reason for Continuing Indwelling Catheter: Decision to DC Catheter Urinary Catheter Date of Insertion: 03/23/21 Urinary Catheter Time of Insertion: 16:47 Date Urinary Catheter Removed: 04/02/21 Time Urinary Catheter Discontinued: 16:00 Data : 04/10/21 06:08 04/10/21 06:08 A&P Assessment and plan (1) COVID-19: s/p remdesivir 03/23-03/27 Continue dexamethasone 6 mg IV every 24 hours, however does have facial plethora gtz facies, consider discontinuing earlier 1 dose of Tocilizumab given 03/23, Off Primaxin on doxycycline Fungal series - yeast Repeat blood cultures, sputum cultures, urine cultures, all negative Blood cultures negative to date MRSA PCR negative. Bacterial antigen panel negative. Appreciate pulmonary consultation Pulmonary toilet, incentive spirometer, flutter valve Encourage prone positioning Wean oxygen as tolerated Hold diuresis for now Given anxiety start low-dose Klonopin continue heated high-flow Repeat labs in am No change to ongoing management. Plan for today, wean oxygen as tolerated, monitor clinical status, hopefully can discharge the next 24 hours Status: Acute (2) Acute respiratory failure: Status: Acute Qualifiers: Respiratory failure complication: hypoxia Qualified Code(s): J96.01 - Acute respiratory failure with hypoxia (3) Asthma: No evidence of exacerbation currently. Continue pulmonary toilet Status: Chronic Qualifiers: Asthma severity: mild Asthma persistence: intermittent Asthma complication type: uncomplicated Qualified Code(s): J45.20 - Mild intermittent asthma, uncomplicated (4) ARDS (adult respiratory distress syndrome): Status: Acute Additional A&P Information Diabetes mellitus. Currently on Levemir 120 units twice daily, insulin sliding scale, NovoLog on hold, may resume if glucose> 200 Obesity. TSH checked and normal Transaminitis. Hepatitis panel negative. Abdominal ultrasound demonstrates likely cyst. AFP without significant elevation Urine culture grew Klebsiella, which is sensitive to Zosyn. Status post treatment. Chronic pain syndrome. Has pain pump with morphine and bupivacaine. Full code Lovenox for DVT prophylaxis Attestations Medical Necessity Statement*: will need further hospitalization for management of covid 19 pneumnai Time Spent in Patient Care: Greater than 35 minutes (>than 50% of time spent in counselling and/or direct pt care on unit) . Coding Level of Care Code Acute License And Permit Specialist for [facility] Diagnoses COVID-19 U07.1 Acute respiratory failure J96.01 Respiratory failure complication: hypoxia Asthma J45.20 Asthma severity: mild Asthma persistence: intermittent Asthma complication type: uncomplicated ARDS (adult respiratory distress syndrome) J80
[2021-04-10 17:07] LABS: Glucose Point of Care 285 mg/dL (70-110)
[2021-04-10] MEDS: enoxaparin 40 mg/0.4 mL Syringe SUBCUT (17:29)
[2021-04-10 21:31] LABS: Glucose Point of Care 319 mg/dL (70-110)
[2021-04-10] MEDS: aspirin 81 mg EC Tablet PO (21:55)
[2021-04-10] MEDS: pantoprazole DR 40 mg Tablet PO (21:55)
[2021-04-10] MEDS: atorvastatin 40 mg Tablet 20 MG PO (21:55)
[2021-04-10] MEDS: acetaminophen 325 mg Tablet 650 MG PO (21:55)
[2021-04-11] VITALS (15 sets, daily range): BP systolic 104–145; BP diastolic 69–100; PULSE 67–99; RESP 14–22; TEMP 36.4–36.8; O2SAT 85–96
[2021-04-11] MEDS: albuterol 8 gm MDI 1 PUFF INHALATION ×4 (02:50→21:04)
[2021-04-11 06:23] LABS: Anion Gap 12.4 (5-19); Blood Urea Nitrogen 20 mg/dL (6-20); Calcium 8.4 mg/dL (8.5-10.5); Carbon Dioxide 29 mmol/L (22-29); Chloride 97 mmol/L (98-107); Glomerular Filtration Rate 136.6 mL/min (90-130); Glucose 233 mg/dL (65-115); Osmolality Calculated 288 mOsm/kg (285-295); Potassium 4.4 mmol/L (3.5-5.1); Sodium 134 mmol/L (136-145)
[2021-04-11 06:31] LABS: Basophils % 0.2 %; Eosinophils # 0.1 10^3/uL (0.0-0.8); Eosinophils % 0.7 %; Hematocrit 47.4 % (37.0-47.0); Hemoglobin 14.6 g/dL (11.5-15.3); Lymphocytes # 2.1 10^3/uL (0.8-4.8); Lymphocytes % 13.6 %; Mean Corpuscular HGB Conc 30.8 g/dL (30.0-36.0); Mean Corpuscular Hemoglobin 25.8 pg (28.0-34.0); Mean Corpuscular Volume 83.7 fl (81-99); Mean Platelet Volume 12.3 fL (7.4-10.4); Monocytes # 1.1 10^3/uL (0.2-0.9); Monocytes % 7.1 %; Neutrophils # 11.99 10^3/uL (1.8-7.7); Nucleated Red Blood Cells % 0 %; Platelet Count 230 10^3/cmm (130-400); Red Blood Count 5.66 10^6/uL (4.1-5.3); Red Cell Distribution Width 19.6 % (12.1-15.1); White Blood Count 15.4 10^3/uL (4.0-10.0)
[2021-04-11] MEDS: atenolol 50 mg Tablet 25 MG PO (06:40)
[2021-04-11] MEDS: CLONazepam 0.5 mg Tablet 0.25 MG PO ×2 (06:42→22:00)
[2021-04-11] MEDS: acetaminophen 325 mg Tablet 650 MG PO ×2 (06:42→22:00)
[2021-04-11 06:55] LABS: Glucose Point of Care 193 mg/dL (70-110)
[2021-04-11] MEDS: ascorbic acid 500 mg Tablet PO ×2 (08:31→17:14)
[2021-04-11] MEDS: fluconazole 100 mg Tablet 200 MG PO (08:31)
[2021-04-11] MEDS: duloxetine 20 mg Capsule 40 MG PO (08:31)
[2021-04-11] MEDS: doxycycline 100 mg Tablet PO ×2 (08:31→17:13)
[2021-04-11] MEDS: docusate sodium 100 mg Capsule PO ×2 (08:31→17:14)
[2021-04-11] MEDS: cetirizine 10 mg Tablet PO (08:31)
[2021-04-11] MEDS: sennosides-docusate Tablet 1 TAB PO ×2 (08:31→17:13)
[2021-04-11] MEDS: zinc gluconate 50 mg Tablet PO (08:31)
[2021-04-11] MEDS: baclofen 10 mg Tablet 5 MG PO ×3 (08:32→22:00)
[2021-04-11] MEDS: polyethylene glycol 3350 Pkt 17 gm PO (08:32)
[2021-04-11 11:32] LABS: Glucose Point of Care 281 mg/dL (70-110)
[2021-04-11] MEDS: dexamethasone 4 mg/mL INJ 6 MG IVP (12:53)
--- NOTE | 2021-04-11 14:38 | P.PN_ITS ---
Subjective Subjective: Interval history: Patient slowly improving. FiO2 of 70%. 40 L. on high-flow nasal cannula. No new complaints overnight. Noted productive cough. Medications: Reviewed: Yes Vitals/I&O/Wt Last Vital Signs Temp 97.9 F 04/11/21 08:00 Pulse 86 04/11/21 13:45 Resp 18 04/11/21 13:45 BP 104/69 04/11/21 08:00 Pulse Ox 94 04/11/21 13:45 04/10/21 04/11/21 04/11/21 22:59 06:59 14:59 Intake Total 240 / 840 240 / 240 Output Total 1800 / 1800 Balance 240 / 840 -1800 / -960 240 / 240 Weight last 48 hrs Weight 143.063 kg Weight 145.422 kg Physical Exam Narrative: EXAM NARRATIVE: GEN: Awake, alert and oriented, no acute distress CVS: S1S2 N RS: CTA B/L On high-flow Abd: Soft, nt/nd , bs+ FAMILY ENGAGEMENT SPECIALIST: no focal neuro deficits Urinary Catheter Management^: Matthews: Cath Placed During This Visit: yes, but has since been removed by the nurse Reason for Continuing Indwelling Catheter: Decision to DC Catheter Urinary Catheter Date of Insertion: 03/23/21 Urinary Catheter Time of Insertion: 16:47 Date Urinary Catheter Removed: 04/02/21 Time Urinary Catheter Discontinued: 16:00 Data : 04/11/21 05:19 04/11/21 05:19 A&P Assessment and plan (1) COVID-19: s/p remdesivir 03/23-03/27 Continue dexamethasone 6 mg IV every 24 hours, however does have facial plethora gtz facies, consider discontinuing earlier 1 dose of Tocilizumab given 03/23, Off Primaxin on doxycycline Fungal series - yeast Repeat blood cultures, sputum cultures, urine cultures, all negative Blood cultures negative to date MRSA PCR negative. Bacterial antigen panel negative. Appreciate pulmonary consultation Pulmonary toilet, incentive spirometer, flutter valve Encourage prone positioning Wean oxygen as tolerated Hold diuresis for now Given anxiety start low-dose Klonopin continue heated high-flow - FiO2 weaned to 65% Repeat labs in am No change to ongoing management. Plan for today, wean oxygen as tolerated, monitor clinical status, hopefully can discharge the next 24 hours Status: Acute (2) Acute respiratory failure: Status: Acute Qualifiers: Respiratory failure complication: hypoxia Qualified Code(s): J96.01 - Acute respiratory failure with hypoxia (3) Asthma: No evidence of exacerbation currently. Continue pulmonary toilet Status: Chronic Qualifiers: Asthma severity: mild Asthma persistence: intermittent Asthma complication type: uncomplicated Qualified Code(s): J45.20 - Mild intermittent asthma, uncomplicated (4) ARDS (adult respiratory distress syndrome): Status: Acute Additional A&P Information Diabetes mellitus. Currently on Levemir 120 units twice daily, insulin sliding scale, NovoLog on hold, may resume if glucose> 200 Obesity. TSH checked and normal -no change Transaminitis. Hepatitis panel negative. Abdominal ultrasound demonstrates likely cyst. AFP without significant elevation Urine culture grew Klebsiella, which is sensitive to Zosyn. Status post treatment. Chronic pain syndrome. Has pain pump with morphine and bupivacaine. Full code Lovenox for DVT prophylaxis Attestations Medical Necessity Statement*: require further hospitalization for management of COVID-19 related respiratory failure Time Spent in Patient Care: Greater than 35 minutes (>than 50% of time spent in counselling and/or direct pt care on unit) . Coding Level of Care Code Acute Activities Director for [facility] Diagnoses COVID-19 U07.1 Acute respiratory failure J96.01 Respiratory failure complication: hypoxia Asthma J45.20 Asthma severity: mild Asthma persistence: intermittent Asthma complication type: uncomplicated ARDS (adult respiratory distress syndrome) J80
[2021-04-11 15:32] LABS: Glucose Point of Care 341 mg/dL (70-110)
[2021-04-11] MEDS: enoxaparin 40 mg/0.4 mL Syringe SUBCUT (17:14)
[2021-04-11] MEDS: atorvastatin 40 mg Tablet 20 MG PO (22:00)
[2021-04-11] MEDS: aspirin 81 mg EC Tablet PO (22:00)
[2021-04-11] MEDS: pantoprazole DR 40 mg Tablet PO (22:00)
[2021-04-12] VITALS (16 sets, daily range): BP systolic 121–154; BP diastolic 65–90; PULSE 63–93; RESP 12–20; TEMP 36.6–37.1; O2SAT 86–94
[2021-04-12] MEDS: albuterol 8 gm MDI 1 PUFF INHALATION ×4 (03:21→21:30)
[2021-04-12] MEDS: atenolol 50 mg Tablet 25 MG PO (06:29)
[2021-04-12] MEDS: duloxetine 20 mg Capsule 40 MG PO (08:48)
[2021-04-12] MEDS: zinc gluconate 50 mg Tablet PO (08:49)
[2021-04-12] MEDS: ascorbic acid 500 mg Tablet PO ×2 (08:49→17:07)
[2021-04-12] MEDS: fluconazole 100 mg Tablet 200 MG PO (08:49)
[2021-04-12] MEDS: sennosides-docusate Tablet 1 TAB PO ×2 (08:49→17:06)
[2021-04-12] MEDS: doxycycline 100 mg Tablet PO ×2 (08:49→17:06)
[2021-04-12] MEDS: cetirizine 10 mg Tablet PO (08:49)
[2021-04-12] MEDS: baclofen 10 mg Tablet 5 MG PO ×3 (08:49→21:51)
[2021-04-12] MEDS: dexamethasone 4 mg/mL INJ 6 MG IVP (08:50)
[2021-04-12] MEDS: docusate sodium 100 mg Capsule PO ×2 (08:50→17:07)
[2021-04-12] MEDS: polyethylene glycol 3350 Pkt 17 gm PO (10:00)
[2021-04-12] MEDS: CLONazepam 0.5 mg Tablet 0.25 MG PO (11:03)
[2021-04-12 13:17] LABS: Glucose Point of Care 328 mg/dL (70-110)
--- NOTE | 2021-04-12 15:16 | PM.PN ---
Subjective Subjective: Interval history: Patient remeined on HFNC, Tearful Medications: Reviewed: Yes Vitals/I&O/Wt Last Vital Signs Temp 98.7 F 04/12/21 11:43 Pulse 84 04/12/21 15:04 Resp 18 04/12/21 15:04 BP 136/65 04/12/21 11:43 Pulse Ox 92 04/12/21 15:04 04/12/21 04/12/21 04/12/21 06:59 14:59 22:59 Output Total 1600 / 2500 Balance -1600 / -1530 Weight last 48 hrs Weight 142.383 kg Weight 143.063 kg Physical Exam Narrative: EXAM NARRATIVE: GEN: Awake, alert and oriented, no acute distress CVS: S1S2 N RS: CTA B/L On high-flow Abd: Soft, nt/nd , bs+ INSIDE SALES SPECIALIST: no focal neuro deficits Urinary Catheter Management^: Matthews: Cath Placed During This Visit: yes, but has since been removed by the nurse Reason for Continuing Indwelling Catheter: Decision to DC Catheter Urinary Catheter Date of Insertion: 03/23/21 Urinary Catheter Time of Insertion: 16:47 Date Urinary Catheter Removed: 04/02/21 Time Urinary Catheter Discontinued: 16:00 Data : 04/11/21 05:19 04/11/21 05:19 A&P Assessment and plan (1) COVID-19: s/p remdesivir 03/23-03/27 Continue dexamethasone 6 mg IV every 24 hours, however does have facial plethora gtz facies, consider discontinuing earlier 1 dose of Tocilizumab given 03/23, Off Primaxin on doxycycline Fungal series - yeast Repeat blood cultures, sputum cultures, urine cultures, all negative Blood cultures negative to date MRSA PCR negative. Bacterial antigen panel negative. Appreciate pulmonary consultation Pulmonary toilet, incentive spirometer, flutter valve Encourage prone positioning Wean oxygen as tolerated Hold diuresis for now Given anxiety start low-dose Klonopin continue heated high-flow - FiO2 weaned to 65% - unchanged. Repeat labs in am No change to ongoing management. Status: Acute (2) Acute respiratory failure: Status: Acute Qualifiers: Respiratory failure complication: hypoxia Qualified Code(s): J96.01 - Acute respiratory failure with hypoxia (3) Asthma: No evidence of exacerbation currently. Continue pulmonary toilet Status: Chronic Qualifiers: Asthma severity: mild Asthma persistence: intermittent Asthma complication type: uncomplicated Qualified Code(s): J45.20 - Mild intermittent asthma, uncomplicated (4) ARDS (adult respiratory distress syndrome): Status: Acute Additional A&P Information Diabetes mellitus. Currently on Levemir 120 units twice daily, insulin sliding scale, NovoLog on hold, may resume if glucose> 200 Obesity. TSH checked and normal -no change Transaminitis. Hepatitis panel negative. Abdominal ultrasound demonstrates likely cyst. AFP without significant elevation Urine culture grew Klebsiella, which is sensitive to Zosyn. Status post treatment. Chronic pain syndrome. Has pain pump with morphine and bupivacaine. Full code Lovenox for DVT prophylaxis Attestations Medical Necessity Statement*: Will continue current hospitalization for management of covid 19 pneumonia induced respiratory failure Time Spent in Patient Care: Greater than 35 minutes (>than 50% of time spent in counselling and/or direct pt care on unit). Coding Level of Care Code Acute Windmill Technician for [facility] Diagnoses COVID-19 U07.1 Acute respiratory failure J96.01 Respiratory failure complication: hypoxia Asthma J45.20 Asthma severity: mild Asthma persistence: intermittent Asthma complication type: uncomplicated ARDS (adult respiratory distress syndrome) J80
[2021-04-12] MEDS: enoxaparin 40 mg/0.4 mL Syringe SUBCUT (17:07)
[2021-04-12 17:32] LABS: Glucose Point of Care 346 mg/dL (70-110)
[2021-04-12 20:16] LABS: Glucose Point of Care 315 mg/dL (70-110)
[2021-04-12] MEDS: aspirin 81 mg EC Tablet PO (21:50)
[2021-04-12] MEDS: acetaminophen 325 mg Tablet 650 MG PO (21:51)
[2021-04-12] MEDS: pantoprazole DR 40 mg Tablet PO (21:51)
[2021-04-12] MEDS: atorvastatin 40 mg Tablet 20 MG PO (21:51)
[2021-04-13] VITALS (15 sets, daily range): BP systolic 106–151; BP diastolic 75–90; PULSE 68–103; RESP 13–20; TEMP 36.4–36.7; O2SAT 83–95
[2021-04-13] MEDS: CLONazepam 0.5 mg Tablet 0.25 MG PO ×2 (03:16→11:36)
[2021-04-13] MEDS: albuterol 8 gm MDI 1 PUFF INHALATION ×4 (03:33→21:20)
[2021-04-13 03:50] LABS: ABG PCO2 46.2 mmHg (35-45); ABG PH Result 7.44 (7.35-7.45); Arterial Blood Gas Hematocrit 46.6 % (37-47); Base Excess ABG 6.2 mmol/L (-2.0-2.0); Blood Gas Allen Test Pos; Blood Gas Sample Site Radial, left; Blood Gas Sample Type Arterial; HCO3 ABG 31.4 mmol/L (22-26); Oxygen Device NC; PO2 ABG 55.8 mmHg (80.0-100.0)
[2021-04-13] MEDS: atenolol 50 mg Tablet 25 MG PO (06:02)
--- NOTE | 2021-04-13 07:00 | XRR_ITS ---
PROCEDURE INFORMATION: Exam: XR Chest Exam date and time: 04/13/2021 7:00 AM Age: 40 years old Clinical indication: Condition or disease; Lung condition and disease; Respiratory failure; Status not specified TECHNIQUE: Imaging protocol: XR of the chest. Views: 1 view. COMPARISON: CR XR chest 1V portable [id number] 04/02/2021 5:46 AM FINDINGS: Lungs: Low lung Persistent bilateral airspace opacities. No large pleural effusion or pneumothorax. Pleural spaces: See Lungs finding. Heart/Mediastinum: Stable cardiomediastinal silhouette. Bones/joints: No acute osseous injury identified. XR/XR chest 1V portable [id number] IMPRESSION: Persistent bilateral airspace opacities. Volumes.
[2021-04-13 07:02] LABS: Basophils % 0.2 %; Eosinophils # 0.1 10^3/uL (0.0-0.8); Eosinophils % 1.2 %; Hematocrit 46.6 % (37.0-47.0); Hemoglobin 14.5 g/dL (11.5-15.3); Lymphocytes # 2.7 10^3/uL (0.8-4.8); Lymphocytes % 22.7 %; Mean Corpuscular HGB Conc 31.1 g/dL (30.0-36.0); Mean Corpuscular Hemoglobin 25.6 pg (28.0-34.0); Mean Corpuscular Volume 82.2 fl (81-99); Mean Platelet Volume 11.9 fL (7.4-10.4); Monocytes # 1.3 10^3/uL (0.2-0.9); Monocytes % 10.4 %; Neutrophils # 7.86 10^3/uL (1.8-7.7); Neutrophils % 65.2 %; Nucleated Red Blood Cells % 0 %; Platelet Count 187 10^3/cmm (130-400); Red Blood Count 5.67 10^6/uL (4.1-5.3); Red Cell Distribution Width 19.1 % (12.1-15.1); White Blood Count 12.1 10^3/uL (4.0-10.0)
[2021-04-13 07:15] LABS: Glucose Point of Care 203 mg/dL (70-110)
[2021-04-13 07:31] LABS: Ferritin 122 ng/mL (15-150)
[2021-04-13 07:38] LABS: Procalcitonin 0.07 ng/mL (0-0.5)
[2021-04-13 07:39] LABS: Alanine Aminotransferase 70 U/L (0-33); Albumin Level 3.4 g/dL (3.5-5.2); Alkaline Phosphatase 152 IU/L (35-105); Anion Gap 13.5 (5-19); Aspartate Amino Transferase 27 U/L (0-32); Blood Urea Nitrogen 24 mg/dL (6-20); C Reactive Protein 4.1 mg/L (0.0-4.9); Calcium 8.9 mg/dL (8.5-10.5); Carbon Dioxide 29 mmol/L (22-29); Chloride 97 mmol/L (98-107); D Dimer 0.31 ug/mIFEU (0-0.59); Globulin 3.1 g/dL (1.3-4.6); Glomerular Filtration Rate 136.6 mL/min (90-130); Glucose 220 mg/dL (65-115); Osmolality Calculated 291 mOsm/kg (285-295); Potassium 4.5 mmol/L (3.5-5.1); Sodium 135 mmol/L (136-145); Total Bilirubin 0.4 mg/dL (0.15-1.2); Total Protein 6.5 g/dL (6.6-8.7)
[2021-04-13] MEDS: duloxetine 20 mg Capsule 40 MG PO (08:18)
[2021-04-13] MEDS: sennosides-docusate Tablet 1 TAB PO ×2 (08:19→17:42)
[2021-04-13] MEDS: baclofen 10 mg Tablet 5 MG PO ×3 (08:19→20:55)
[2021-04-13] MEDS: docusate sodium 100 mg Capsule PO ×2 (08:19→17:42)
[2021-04-13] MEDS: dexamethasone 4 mg Tablet PO (08:19)
[2021-04-13] MEDS: cetirizine 10 mg Tablet PO (08:19)
[2021-04-13] MEDS: zinc gluconate 50 mg Tablet PO (08:19)
[2021-04-13] MEDS: doxycycline 100 mg Tablet PO ×2 (08:19→17:42)
[2021-04-13] MEDS: ascorbic acid 500 mg Tablet PO ×2 (08:19→17:42)
[2021-04-13] MEDS: polyethylene glycol 3350 Pkt 17 gm PO (08:21)
--- NOTE | 2021-04-13 09:07 | PC.CHAP ---
Pastoral Care Encounter/Spiritual Assessment Type of Contact [] Declined tents assembler visit [] Patient/Family/Request visit [] Outpatient visit [] Follow-up visit [] Physician referral [] Code/Alert [x] Routine visit [] Staff referral [] Actively dying [] Patient sleeping [] Family support [] [] Out of room [] Palliative care [] [] Receiving care in room [] Pre-surgical visit [] Trauma [] Long length of stay [] ICU visit [x] Other:2a always pleasant Relational/Emotional Strength [] Patient feels connected with others/family/visitors/staff [] Distress [] Loneliness/isolation [] Abandonment Spirituality of Patient [] Person of Barbara [] Attends Moravian of their Barbara [] Believes in Prayer [] Reads Bible or Holiness materials [] There are Spiritual issues to be addressed Seal Delivery Vehicle Officer 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 [x] Prayer [] Active listening [] Non-anxious presence [] Spiritual/emotional support [] Crisis/trauma care [] Spiritual counseling [] Bereavement support [] Provided bereavement packet [] Provided Bible/devotional materials [] Provided toy/stuffed animal, coloring book to patient or family member [] Provided Communion [] Anointing/[place] [] Salvation [x] Completed spiritual assessment [] Other: Impact on Illness or Injury [] Angry [] Fearful [] Anxious [] Often cries [] Exhaustion [] Unable to work [] Unable to attend hoahaoism [] Unable to walk/stand [] Unable to read [] Unable to drive [] Unable to eat/drink [] Unable to sleep [] Unable to be with family [] Patient intubated [] Other: Summary Time spent with patient
[2021-04-13 11:44] LABS: Glucose Point of Care 308 mg/dL (70-110)
[2021-04-13 17:24] LABS: Glucose Point of Care 310 mg/dL (70-110)
[2021-04-13] MEDS: enoxaparin 40 mg/0.4 mL Syringe SUBCUT (17:41)
--- NOTE | 2021-04-13 17:50 | PM.PN ---
Subjective Subjective: Interval history: Patient continues to improve slowly. FiO2 was decreased to 60%. No new clinical events overnight. Medications: Reviewed: Yes Vitals/I&O/Wt Last Vital Signs Temp 97.9 F 04/13/21 16:00 Pulse 85 04/13/21 17:48 Resp 20 H 04/13/21 17:48 BP 137/83 04/13/21 16:00 Pulse Ox 83 L 04/13/21 17:48 04/13/21 04/13/21 04/13/21 06:59 14:59 22:59 Intake Total 600 / 600 Output Total 1999 / 1999 Balance 600 / 600 -2000 / -1400 Weight last 48 hrs Weight 144.106 kg Weight 142.383 kg Physical Exam Narrative: EXAM NARRATIVE: GEN: Awake, alert and oriented, no acute distress CVS: S1S2 N RS: CTA B/L On high-flow Abd: Soft, nt/nd , bs+ SAFETY SCIENTIST: no focal neuro deficits Urinary Catheter Management^: Matthews: Cath Placed During This Visit: yes, but has since been removed by the nurse Reason for Continuing Indwelling Catheter: Decision to DC Catheter Urinary Catheter Date of Insertion: 03/23/21 Urinary Catheter Time of Insertion: 16:47 Date Urinary Catheter Removed: 04/02/21 Time Urinary Catheter Discontinued: 16:00 Data : 04/13/21 06:23 04/13/21 06:23 A&P Assessment and plan (1) COVID-19: s/p remdesivir 03/23-03/27 Continue dexamethasone 6 mg IV every 24 hours, however does have facial plethora gtz facies, consider discontinuing earlier 1 dose of Tocilizumab given 03/23, Off Primaxin on doxycycline Fungal series - yeast Repeat blood cultures, sputum cultures, urine cultures, all negative Blood cultures negative to date MRSA PCR negative. Bacterial antigen panel negative. Appreciate pulmonary consultation Pulmonary toilet, incentive spirometer, flutter valve Encourage prone positioning Wean oxygen as tolerated Hold diuresis for now Given anxiety start low-dose Klonopin continue heated high-flow - FiO2 weaned to 65% - unchanged. Repeat labs in am Continue to wean Decadron. Status: Acute (2) Acute respiratory failure: Status: Acute Qualifiers: Respiratory failure complication: hypoxia Qualified Code(s): J96.01 - Acute respiratory failure with hypoxia (3) Asthma: Continue pulmonary toilet Status: Chronic Qualifiers: Asthma severity: mild Asthma persistence: intermittent Asthma complication type: uncomplicated Qualified Code(s): J45.20 - Mild intermittent asthma, uncomplicated (4) ARDS (adult respiratory distress syndrome): Status: Acute Additional A&P Information Diabetes mellitus. Continue adjusting insulin Mealtime short-acting added Long-acting 120 mg subcu b.i.d. Transaminitis. Hepatitis panel negative. Abdominal ultrasound demonstrates likely cyst. AFP without significant elevation Urine culture grew Klebsiella, which is sensitive to Zosyn. Status post treatment. Chronic pain syndrome. Has pain pump with morphine and bupivacaine. Full code Lovenox for DVT prophylaxis Attestations Medical Necessity Statement*: Continue hospitalizationFor management of COVID-19 pneumonia related respiratory failure Coding Level of Care Code Acute Managing Consultant Clinical Professor for [facility] Diagnoses COVID-19 U07.1 Acute respiratory failure J96.01 Respiratory failure complication: hypoxia Asthma J45.20 Asthma severity: mild Asthma persistence: intermittent Asthma complication type: uncomplicated ARDS (adult respiratory distress syndrome) J80
[2021-04-13] MEDS: pantoprazole DR 40 mg Tablet PO (20:55)
[2021-04-13] MEDS: aspirin 81 mg EC Tablet PO (20:55)
[2021-04-13] MEDS: atorvastatin 40 mg Tablet 20 MG PO (20:55)
[2021-04-13 21:17] LABS: Glucose Point of Care 354 mg/dL (70-110)
[2021-04-14] VITALS (14 sets, daily range): BP systolic 103–144; BP diastolic 74–99; PULSE 70–101; RESP 13–21; TEMP 36.4–36.8; O2SAT 79–97
--- NOTE | 2021-04-14 00:36 | PC.RESP ---
RT Shift Note Frequent safety and respiratory rounds continue. Orders completed as indicated. Patient monitored pre and post treatments throughout shift. Patient [Did] tolerate treatments appropriately. Condition [DidNotChange]. Patient and/or career representative educated on respiratory treatment and medications. Patient and/or career representative [ResponseToTeaching]. Will continue to monitor patient progress.
[2021-04-14] MEDS: CLONazepam 0.5 mg Tablet 0.25 MG PO ×2 (00:45→21:51)
[2021-04-14] MEDS: lanolin oint 7 gm 1 APPLIC TOPICAL (00:45)
[2021-04-14] MEDS: acetaminophen 325 mg Tablet 650 MG PO ×2 (00:45→17:47)
[2021-04-14] MEDS: atenolol 50 mg Tablet 25 MG PO (05:31)
[2021-04-14 07:52] LABS: Glucose Point of Care 266 mg/dL (70-110)
--- NOTE | 2021-04-14 08:01 | P.PN_ITS ---
Subjective Subjective: Interval history: patients FiO2 was decreased to 55%. Gradually improving. No new complaint Medications: Reviewed: Yes Vitals/I&O/Wt Last Vital Signs Temp 97.5 F L 04/15/21 04:00 Pulse 66 04/15/21 06:00 Resp 13 04/15/21 04:22 BP 135/86 04/15/21 04:00 Pulse Ox 96 04/15/21 04:22 04/14/21 04/15/21 04/15/21 22:59 06:59 14:59 Intake Total 360 / 960 360 / 1320 Output Total 17954 / 44866 Balance 360 / 960 -9740 / -8780 Weight last 48 hrs Weight 145.603 kg Weight 144.016 kg Physical Exam Narrative: EXAM NARRATIVE: GEN: Awake, alert and oriented, no acute distress CVS: S1S2 N RS: CTA B/L On high-flow Abd: Soft, nt/nd , bs+ CABBAGE SALTER: no focal neuro deficits Urinary Catheter Management^: Matthews: Cath Placed During This Visit: yes, but has since been removed by the nurse Reason for Continuing Indwelling Catheter: Decision to DC Catheter Urinary Catheter Date of Insertion: 03/23/21 Urinary Catheter Time of Insertion: 16:47 Date Urinary Catheter Removed: 04/02/21 Time Urinary Catheter Discontinued: 16:00 Data : 04/13/21 06:23 04/13/21 06:23 A&P Assessment and plan (1) COVID-19: s/p remdesivir 03/23-03/27 Continue dexamethasone 6 mg IV every 24 hours, however does have facial plethora gtz facies, consider discontinuing earlier 1 dose of Tocilizumab given 03/23, Off Primaxin on doxycycline Fungal series - yeast Repeat blood cultures, sputum cultures, urine cultures, all negative Blood cultures negative to date MRSA PCR negative. Bacterial antigen panel negative. Appreciate pulmonary consultation Pulmonary toilet, incentive spirometer, flutter valve Encourage prone positioning Wean oxygen as tolerated Hold diuresis for now Given anxiety start low-dose Klonopin. Repeat labs in am Continue to wean Decadron. FiO2 decreased to 55% Status: Acute (2) Acute respiratory failure: Status: Acute Qualifiers: Respiratory failure complication: hypoxia Qualified Code(s): J96.01 - Acute respiratory failure with hypoxia (3) Asthma: Continue pulmonary toilet Status: Chronic Qualifiers: Asthma severity: mild Asthma persistence: intermittent Asthma complication type: uncomplicated Qualified Code(s): J45.20 - Mild intermittent asthma, uncomplicated (4) ARDS (adult respiratory distress syndrome): Status: Acute Additional A&P Information Diabetes mellitus. Mealtime short-acting added Long-acting 120 mg subcu b.i.d. continue to adjust insulin as needed Transaminitis. Hepatitis panel negative. Abdominal ultrasound demonstrates likely cyst. AFP without significant elevation Urine culture grew Klebsiella, which is sensitive to Zosyn. Status post treatment. Chronic pain syndrome. Has pain pump with morphine and bupivacaine. Full code Lovenox for DVT prophylaxis Attestations Medical Necessity Statement*: Continue hospitalization for management of COVID-19 Time Spent in Patient Care: Greater than 35 minutes (>than 50% of time spent in counselling and/or direct pt care on unit) . Coding Level of Care Code Acute Calender Inspector for [facility] Diagnoses COVID-19 U07.1 Acute respiratory failure J96.01 Respiratory failure complication: hypoxia Asthma J45.20 Asthma severity: mild Asthma persistence: intermittent Asthma complication type: uncomplicated ARDS (adult respiratory distress syndrome) J80
[2021-04-14] MEDS: albuterol 8 gm MDI 1 PUFF INHALATION ×2 (08:10→20:45)
[2021-04-14] MEDS: ascorbic acid 500 mg Tablet PO ×2 (08:35→17:46)
[2021-04-14] MEDS: doxycycline 100 mg Tablet PO ×2 (08:36→17:47)
[2021-04-14] MEDS: cetirizine 10 mg Tablet PO (08:36)
[2021-04-14] MEDS: baclofen 10 mg Tablet 5 MG PO ×3 (08:36→21:31)
[2021-04-14] MEDS: sennosides-docusate Tablet 1 TAB PO ×2 (08:36→17:46)
[2021-04-14] MEDS: duloxetine 20 mg Capsule 40 MG PO (08:36)
[2021-04-14] MEDS: dexamethasone 4 mg Tablet PO (08:37)
[2021-04-14] MEDS: polyethylene glycol 3350 Pkt 17 gm PO (08:37)
[2021-04-14] MEDS: docusate sodium 100 mg Capsule PO ×2 (08:37→17:47)
[2021-04-14] MEDS: zinc gluconate 50 mg Tablet PO (08:37)
--- NOTE | 2021-04-14 09:28 | PC.CHAP ---
Pastoral Care Encounter/Spiritual Assessment Type of Contact [] Declined management internship visit [] Patient/Family/Request visit [] Outpatient visit [] Follow-up visit [] Physician referral [] Code/Alert [x] Routine visit [] Staff referral [] Actively dying [] Patient sleeping [] Family support [] [] Out of room [] Palliative care [] [] Receiving care in room [] Pre-surgical visit [] Trauma [] Long length of stay [] ICU visit [x] Other: 2a Relational/Emotional Strength [] Patient feels connected with others/family/visitors/staff [] Distress [] Loneliness/isolation [] Abandonment Spirituality of Patient [] Person of Barbara [] Attends Rastafari of their Barbara [] Believes in Prayer [] Reads Bible or Church materials [] There are Spiritual issues to be addressed Felt Hooker 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 [x] Prayer [] Active listening [] Non-anxious presence [] Spiritual/emotional support [] Crisis/trauma care [] Spiritual counseling [] Bereavement support [] Provided bereavement packet [] Provided Bible/devotional materials [] Provided toy/stuffed animal, coloring book to patient or family member [] Provided Communion [] Anointing/[place] [] Salvation [x] Completed spiritual assessment [] Other: Impact on Illness or Injury [] Angry [] Fearful [] Anxious [] Often cries [] Exhaustion [] Unable to work [] Unable to attend amish [] Unable to walk/stand [] Unable to read [] Unable to drive [] Unable to eat/drink [] Unable to sleep [] Unable to be with family [] Patient intubated [] Other: Summary Time spent with patient
[2021-04-14 10:58] LABS: Glucose Point of Care 339 mg/dL (70-110)
[2021-04-14 16:59] LABS: Glucose Point of Care 320 mg/dL (70-110)
[2021-04-14] MEDS: enoxaparin 40 mg/0.4 mL Syringe SUBCUT (17:47)
--- NOTE | 2021-04-14 19:09 | PC.NURSE ---
shift summary pt has not had any complaints other then her having a headache at approximately 1700 which she received Tylenol prn and seemed to help her. pt has been up ad sebastian, appetite has been good this shift. no other changes this shift.
[2021-04-14 20:57] LABS: Glucose Point of Care 305 mg/dL (70-110)
[2021-04-14] MEDS: atorvastatin 40 mg Tablet 20 MG PO (21:30)
[2021-04-14] MEDS: pantoprazole DR 40 mg Tablet PO (21:31)
[2021-04-14] MEDS: aspirin 81 mg EC Tablet PO (21:31)
[2021-04-15] VITALS (17 sets, daily range): BP systolic 124–152; BP diastolic 78–102; PULSE 66–96; RESP 12–24; TEMP 36.4–36.8; O2SAT 85–98
[2021-04-15] MEDS: acetaminophen 325 mg Tablet 650 MG PO ×3 (00:32→23:00)
[2021-04-15] MEDS: albuterol 8 gm MDI 1 PUFF INHALATION ×4 (01:03→20:34)
[2021-04-15 05:36] LABS: Glucose Point of Care 301 mg/dL (70-110)
[2021-04-15] MEDS: atenolol 50 mg Tablet 25 MG PO (05:38)
[2021-04-15 08:08] LABS: Glucose Point of Care 255 mg/dL (70-110)
[2021-04-15] MEDS: zinc gluconate 50 mg Tablet PO (08:34)
[2021-04-15] MEDS: baclofen 10 mg Tablet 5 MG PO (08:34)
[2021-04-15] MEDS: doxycycline 100 mg Tablet PO (08:34)
[2021-04-15] MEDS: docusate sodium 100 mg Capsule PO ×2 (08:34→16:59)
[2021-04-15] MEDS: cetirizine 10 mg Tablet PO (08:34)
[2021-04-15] MEDS: ascorbic acid 500 mg Tablet PO ×2 (08:34→16:59)
[2021-04-15] MEDS: duloxetine 20 mg Capsule 40 MG PO (08:34)
[2021-04-15] MEDS: dexamethasone 4 mg Tablet PO (08:34)
[2021-04-15 11:44] LABS: Glucose Point of Care 303 mg/dL (70-110)
[2021-04-15] MEDS: CLONazepam 0.5 mg Tablet 0.25 MG PO ×2 (12:05→22:59)
--- NOTE | 2021-04-15 13:10 | P.PN_ITS ---
Subjective Subjective: Interval history: Patients FiO2 was decreased to 50%. Gradually improving. No new complaint Medications: Reviewed: Yes Vitals/I&O/Wt Last Vital Signs Temp 98.1 F 04/15/21 11:59 Pulse 82 04/15/21 11:59 Resp 16 04/15/21 11:59 BP 152/102 04/15/21 11:59 Pulse Ox 85 L 04/15/21 11:59 04/14/21 04/15/21 04/15/21 22:59 06:59 14:59 Intake Total 360 / 960 360 / 1320 300 / 300 Output Total 70344 / 94135 Balance 360 / 960 -9740 / -8780 300 / 300 Weight last 48 hrs Weight 145.603 kg Weight 144.016 kg Physical Exam Narrative: EXAM NARRATIVE: GEN: Awake, alert and oriented, no acute distress CVS: S1S2 N RS: CTA B/L On high-flow Abd: Soft, nt/nd , bs+ CLOTH PRESSER: no focal neuro deficits Urinary Catheter Management^: Matthews: Cath Placed During This Visit: yes, but has since been removed by the nurse Reason for Continuing Indwelling Catheter: Decision to DC Catheter Urinary Catheter Date of Insertion: 03/23/21 Urinary Catheter Time of Insertion: 16:47 Date Urinary Catheter Removed: 04/02/21 Time Urinary Catheter Discontinued: 16:00 Data : 04/13/21 06:23 04/13/21 06:23 A&P Assessment and plan (1) COVID-19: s/p remdesivir 03/23-03/27 1 dose of Tocilizumab given 03/23, Fungal series - yeast Repeat blood cultures, sputum cultures, urine cultures, all negative Blood cultures negative to date MRSA PCR negative. Bacterial antigen panel negative. Appreciate pulmonary consultation Pulmonary toilet, incentive spirometer, flutter valve Encourage prone positioning Wean oxygen as tolerated Given anxiety start low-dose Klonopin. Repeat labs in am Continue to wean Decadron. 2 mg daily x 2 days - then stop D/C antibiotics FiO2 decreased to 50% Home o2 eval at time of discharge. Status: Acute (2) Acute respiratory failure: Status: Acute Qualifiers: Respiratory failure complication: hypoxia Qualified Code(s): J96.01 - Acute respiratory failure with hypoxia (3) Asthma: Continue pulmonary toilet Status: Chronic Qualifiers: Asthma severity: mild Asthma persistence: intermittent Asthma complication type: uncomplicated Qualified Code(s): J45.20 - Mild intermittent asthma, uncomplicated (4) ARDS (adult respiratory distress syndrome): Status: Acute Additional A&P Information Diabetes mellitus. Novolog 20 units TIDAC Long-acting 120 mg subcu b.i.d. Continue to adjust insulin as needed Transaminitis. Hepatitis panel negative. Abdominal ultrasound demonstrates likely cyst. AFP without significant elevation CMP in am Urine culture grew Klebsiella, which is sensitive to Zosyn. Status post treatment. Chronic pain syndrome. Has pain pump with morphine and bupivacaine. Full code Lovenox for DVT prophylaxis Attestations Medical Necessity Statement*: Require further hospitalization for COVID-19 pneumonia Time Spent in Patient Care: Greater than 35 minutes (>than 50% of time spent in counselling and/or direct pt care on unit) . Coding Level of Care Code Acute Online Project Manager for [facility] Diagnoses COVID-19 U07.1 Acute respiratory failure J96.01 Respiratory failure complication: hypoxia Asthma J45.20 Asthma severity: mild Asthma persistence: intermittent Asthma complication type: uncomplicated ARDS (adult respiratory distress syndrome) J80
[2021-04-15 16:32] LABS: Glucose Point of Care 311 mg/dL (70-110)
[2021-04-15] MEDS: enoxaparin 40 mg/0.4 mL Syringe SUBCUT (17:00)
[2021-04-15] MEDS: polyethylene glycol 3350 Pkt 17 gm PO (17:24)
--- NOTE | 2021-04-15 19:20 | PC.NURSE ---
Report to Dee TEJEDA at his time.
[2021-04-15 20:24] LABS: Glucose Point of Care 334 mg/dL (70-110)
[2021-04-15] MEDS: atorvastatin 40 mg Tablet 20 MG PO (22:31)
[2021-04-15] MEDS: aspirin 81 mg EC Tablet PO (22:31)
[2021-04-15] MEDS: pantoprazole DR 40 mg Tablet PO (22:32)
[2021-04-16] VITALS (16 sets, daily range): BP systolic 118–174; BP diastolic 89–93; PULSE 74–109; RESP 14–21; TEMP 36.6–36.8; O2SAT 88–96
[2021-04-16] MEDS: albuterol 8 gm MDI 1 PUFF INHALATION ×4 (02:46→22:16)
[2021-04-16 05:15] LABS: Basophils # 0.1 10^3/uL (0.0-0.1); Basophils % 0.4 %; Eosinophils # 0.5 10^3/uL (0.0-0.8); Hematocrit 45.6 % (37.0-47.0); Hemoglobin 13.9 g/dL (11.5-15.3); Lymphocytes % 26.1 %; Mean Corpuscular HGB Conc 30.5 g/dL (30.0-36.0); Mean Corpuscular Volume 85.2 fl (81-99); Mean Platelet Volume 11.4 fL (7.4-10.4); Monocytes # 1.1 10^3/uL (0.2-0.9); Monocytes % 9.7 %; Neutrophils # 6.86 10^3/uL (1.8-7.7); Nucleated Red Blood Cells % 0 %; Platelet Count 149 10^3/cmm (130-400); Red Blood Count 5.35 10^6/uL (4.1-5.3); Red Cell Distribution Width 19.9 % (12.1-15.1); White Blood Count 11.6 10^3/uL (4.0-10.0)
[2021-04-16 05:37] LABS: D Dimer <= 0.27 ug/mIFEU (0-0.59)
[2021-04-16 05:39] LABS: Alanine Aminotransferase 93 U/L (0-33); Albumin Level 3.1 g/dL (3.5-5.2); Alkaline Phosphatase 146 IU/L (35-105); Anion Gap 12.1 (5-19); Aspartate Amino Transferase 42 U/L (0-32); Blood Urea Nitrogen 19 mg/dL (6-20); Calcium 8.2 mg/dL (8.5-10.5); Carbon Dioxide 30 mmol/L (22-29); Chloride 98 mmol/L (98-107); Globulin 3.1 g/dL (1.3-4.6); Glomerular Filtration Rate 136.6 mL/min (90-130); Glucose 265 mg/dL (65-115); Osmolality Calculated 294 mOsm/kg (285-295); Potassium 4.1 mmol/L (3.5-5.1); Sodium 136 mmol/L (136-145); Total Bilirubin 0.3 mg/dL (0.15-1.2); Total Protein 6.2 g/dL (6.6-8.7)
[2021-04-16 05:40] LABS: Procalcitonin 0.08 ng/mL (0-0.5)
[2021-04-16] MEDS: atenolol 50 mg Tablet 25 MG PO (05:54)
[2021-04-16 07:08] LABS: Glucose Point of Care 260 mg/dL (70-110)
[2021-04-16] MEDS: ascorbic acid 500 mg Tablet PO ×2 (09:27→17:58)
[2021-04-16] MEDS: duloxetine 20 mg Capsule 40 MG PO (09:27)
[2021-04-16] MEDS: zinc gluconate 50 mg Tablet PO (09:28)
[2021-04-16] MEDS: dexamethasone 4 mg Tablet 2 MG PO (09:28)
[2021-04-16] MEDS: docusate sodium 100 mg Capsule PO ×2 (09:28→17:58)
[2021-04-16] MEDS: cetirizine 10 mg Tablet PO (09:28)
[2021-04-16 12:21] LABS: Glucose Point of Care 276 mg/dL (70-110)
[2021-04-16] MEDS: enoxaparin 40 mg/0.4 mL Syringe SUBCUT ×2 (13:13→22:44)
--- NOTE | 2021-04-16 15:36 | PM.PN ---
Subjective Subjective: Interval history: continues to improve. FiO2 decreased to 45%. No fever chills overnight. 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 Urinary Catheter Management^: Matthews: Cath Placed During This Visit: yes, but has since been removed by the nurse Reason for Continuing Indwelling Catheter: Decision to DC Catheter Urinary Catheter Date of Insertion: 03/23/21 Urinary Catheter Time of Insertion: 16:47 Date Urinary Catheter Removed: 04/02/21 Time Urinary Catheter Discontinued: 16:00 Data : 04/16/21 04:38 04/16/21 04:38 A&P Assessment and plan (1) COVID-19: s/p remdesivir 03/23-03/27 1 dose of Tocilizumab given 03/23, Fungal series - yeast Repeat blood cultures, sputum cultures, urine cultures, all negative Blood cultures negative to date MRSA PCR negative. Bacterial antigen panel negative. Appreciate pulmonary consultation Pulmonary toilet, incentive spirometer, flutter valve Encourage prone positioning Wean oxygen as tolerated Given anxiety start low-dose Klonopin. Repeat labs in am Continue to wean Decadron. 2 mg daily - 1 additional day D/C antibiotics FiO2 decreased to 45% Home o2 eval at time of discharge. Status: Acute (2) Acute respiratory failure: Status: Acute Qualifiers: Respiratory failure complication: hypoxia Qualified Code(s): J96.01 - Acute respiratory failure with hypoxia (3) Asthma: Continue pulmonary toilet Status: Chronic Qualifiers: Asthma severity: mild Asthma persistence: intermittent Asthma complication type: uncomplicated Qualified Code(s): J45.20 - Mild intermittent asthma, uncomplicated (4) ARDS (adult respiratory distress syndrome): Status: Acute Additional A&P Information Diabetes mellitus. Novolog 20 units TIDAC Long-acting 120 mg subcu b.i.d. Continue to adjust insulin as needed Transaminitis. Hepatitis panel negative. Abdominal ultrasound demonstrates likely cyst. AFP without significant elevation CMP in am Urine culture grew Klebsiella, which is sensitive to Zosyn. Status post treatment. Chronic pain syndrome. Has pain pump with morphine and bupivacaine. Full code Lovenox for DVT prophylaxis Attestations Medical Necessity Statement*: For further hospitalization for management of COVID-19 pneumonia Time Spent in Patient Care: Greater than 35 minutes (>than 50% of time spent in counselling and/or direct pt care on unit). 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
[2021-04-16 17:08] LABS: Glucose Point of Care 279 mg/dL (70-110)
[2021-04-16] MEDS: acetaminophen 325 mg Tablet 650 MG PO (18:08)
[2021-04-16] MEDS: CLONazepam 0.5 mg Tablet 0.25 MG PO (18:09)
[2021-04-16 20:41] LABS: Glucose Point of Care 217 mg/dL (70-110)
[2021-04-16] MEDS: aspirin 81 mg EC Tablet PO (21:10)
[2021-04-16] MEDS: atorvastatin 40 mg Tablet 20 MG PO (21:10)
[2021-04-16] MEDS: pantoprazole DR 40 mg Tablet PO (21:11)
[2021-04-17] VITALS (17 sets, daily range): BP systolic 125–155; BP diastolic 84–97; PULSE 84–103; RESP 13–21; TEMP 36.6–36.9; O2SAT 90–95
[2021-04-17] MEDS: albuterol 8 gm MDI 1 PUFF INHALATION ×2 (02:51→08:31)
[2021-04-17 05:33] LABS: Basophils # 0.1 10^3/uL (0.0-0.1); Basophils % 0.5 %; Eosinophils # 0.6 10^3/uL (0.0-0.8); Eosinophils % 5.5 %; Hemoglobin 13.6 g/dL (11.5-15.3); Lymphocytes % 27.3 %; Mean Corpuscular HGB Conc 30.9 g/dL (30.0-36.0); Mean Corpuscular Hemoglobin 26.1 pg (28.0-34.0); Mean Corpuscular Volume 84.5 fl (81-99); Mean Platelet Volume 11.8 fL (7.4-10.4); Monocytes % 8.9 %; Neutrophils # 6.23 10^3/uL (1.8-7.7); Neutrophils % 56.9 %; Nucleated Red Blood Cells % 0 %; Platelet Count 156 10^3/cmm (130-400); Red Blood Count 5.21 10^6/uL (4.1-5.3); Red Cell Distribution Width 19.7 % (12.1-15.1)
[2021-04-17] MEDS: atenolol 50 mg Tablet 25 MG PO (05:41)
[2021-04-17 06:04] LABS: Alanine Aminotransferase 90 U/L (0-33); Albumin Level 3.1 g/dL (3.5-5.2); Alkaline Phosphatase 143 IU/L (35-105); Anion Gap 12.3 (5-19); Aspartate Amino Transferase 36 U/L (0-32); Blood Urea Nitrogen 21 mg/dL (6-20); Calcium 8.6 mg/dL (8.5-10.5); Carbon Dioxide 28 mmol/L (22-29); Chloride 98 mmol/L (98-107); Globulin 3.1 g/dL (1.3-4.6); Glomerular Filtration Rate 176.8 mL/min (90-130); Glucose 284 mg/dL (65-115); Osmolality Calculated 291 mOsm/kg (285-295); Potassium 4.3 mmol/L (3.5-5.1); Sodium 134 mmol/L (136-145); Total Bilirubin 0.3 mg/dL (0.15-1.2); Total Protein 6.2 g/dL (6.6-8.7)
[2021-04-17 06:51] LABS: Glucose Point of Care 287 mg/dL (70-110)
[2021-04-17 06:51] LABS: Glucose Point of Care 121 mg/dL (70-110)
--- NOTE | 2021-04-17 08:22 | PC.NURSE ---
0700 and 0800 novolog and levemir held d/t contraindicated glucose level per Dr. Boyd.
[2021-04-17] MEDS: polyethylene glycol 3350 Pkt 17 gm PO (08:48)
[2021-04-17] MEDS: duloxetine 20 mg Capsule 40 MG PO (08:49)
[2021-04-17] MEDS: docusate sodium 100 mg Capsule PO ×2 (08:49→18:22)
[2021-04-17] MEDS: dexamethasone 4 mg Tablet 2 MG PO (08:49)
[2021-04-17] MEDS: cetirizine 10 mg Tablet PO (08:49)
[2021-04-17] MEDS: ascorbic acid 500 mg Tablet PO ×2 (08:49→18:22)
[2021-04-17] MEDS: zinc gluconate 50 mg Tablet PO (08:49)
[2021-04-17] MEDS: acetaminophen 325 mg Tablet 650 MG PO ×2 (08:56→21:17)
[2021-04-17 11:14] LABS: Glucose Point of Care 375 mg/dL (70-110)
[2021-04-17] MEDS: enoxaparin 40 mg/0.4 mL Syringe SUBCUT (12:33)
[2021-04-17] MEDS: CLONazepam 0.5 mg Tablet 0.25 MG PO ×2 (12:37→21:18)
--- NOTE | 2021-04-17 14:59 | PM.PN ---
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 Urinary Catheter Management^: Matthews: Cath Placed During This Visit: yes, but has since been removed by the nurse Reason for Continuing Indwelling Catheter: Decision to DC Catheter Urinary Catheter Date of Insertion: 03/23/21 Urinary Catheter Time of Insertion: 16:47 Date Urinary Catheter Removed: 04/02/21 Time Urinary Catheter Discontinued: 16:00 Data : 04/17/21 04:48 04/17/21 04:48 A&P Assessment and plan (1) COVID-19: s/p remdesivir 03/23-03/27 1 dose of Tocilizumab given 03/23, Fungal series - yeast Repeat blood cultures, sputum cultures, urine cultures, all negative Blood cultures negative to date MRSA PCR negative. Bacterial antigen panel negative. Appreciate pulmonary consultation Pulmonary toilet, incentive spirometer, flutter valve Encourage prone positioning Wean oxygen as tolerated Given anxiety start low-dose Klonopin. Repeat labs in am Completed decadron today Monitoring off abx Weaned to NC - recommended o2 via pendulum Home o2 eval at time of discharge. Status: Acute (2) Acute respiratory failure: Status: Acute Qualifiers: Respiratory failure complication: hypoxia Qualified Code(s): J96.01 - Acute respiratory failure with hypoxia (3) Asthma: Continue pulmonary toilet Status: Chronic Qualifiers: Asthma severity: mild Asthma persistence: intermittent Asthma complication type: uncomplicated Qualified Code(s): J45.20 - Mild intermittent asthma, uncomplicated (4) ARDS (adult respiratory distress syndrome): Status: Acute Additional A&P Information Diabetes mellitus. Novolog 20 units TIDAC Long-acting 120 mg subcu b.i.d. Continue to adjust insulin as needed Transaminitis. Hepatitis panel negative. Abdominal ultrasound demonstrates likely cyst. AFP without significant elevation Labs stable Klebsiella UTI Status post treatment. Chronic pain syndrome Pain pump Ultram added Full code Lovenox for DVT prophylaxis Attestations Medical Necessity Statement*: continue hospitalization for managmenent of covid 19 Time Spent in Patient Care: Greater than 35 minutes (>than 50% of time spent in counselling and/or direct pt care on unit). Coding Level of Care Code Acute Science Consultant for [facility] Diagnoses COVID-19 U07.1 Acute respiratory failure J96.01 Respiratory failure complication: hypoxia Asthma J45.20 Asthma severity: mild Asthma persistence: intermittent Asthma complication type: uncomplicated ARDS (adult respiratory distress syndrome) J80
[2021-04-17 17:07] LABS: Glucose Point of Care 402 mg/dL (70-110)
[2021-04-17] MEDS: atorvastatin 40 mg Tablet 20 MG PO (21:17)
[2021-04-17] MEDS: aspirin 81 mg EC Tablet PO (21:17)
[2021-04-17] MEDS: pantoprazole DR 40 mg Tablet PO (21:18)
[2021-04-17 21:57] LABS: Glucose Point of Care 301 mg/dL (70-110)
[2021-04-18] VITALS (16 sets, daily range): BP systolic 118–150; BP diastolic 73–98; PULSE 68–108; RESP 13–24; TEMP 36.4–36.7; O2SAT 89–95
[2021-04-18] MEDS: enoxaparin 40 mg/0.4 mL Syringe SUBCUT ×3 (01:02→22:05)
[2021-04-18] MEDS: albuterol 8 gm MDI 1 PUFF INHALATION ×3 (03:40→14:59)
--- NOTE | 2021-04-18 03:45 | PC.NURSE ---
resp in room at this time.
[2021-04-18] MEDS: atenolol 50 mg Tablet 25 MG PO (06:00)
[2021-04-18 06:54] LABS: Glucose Point of Care 291 mg/dL (70-110)
[2021-04-18] MEDS: cetirizine 10 mg Tablet PO (07:58)
[2021-04-18] MEDS: CLONazepam 0.5 mg Tablet 0.25 MG PO ×2 (07:58→22:13)
[2021-04-18] MEDS: acetaminophen 325 mg Tablet 650 MG PO ×3 (07:59→22:12)
[2021-04-18] MEDS: zinc gluconate 50 mg Tablet PO (07:59)
[2021-04-18] MEDS: ascorbic acid 500 mg Tablet PO (07:59)
[2021-04-18] MEDS: duloxetine 20 mg Capsule 40 MG PO (07:59)
[2021-04-18 11:36] LABS: Glucose Point of Care 378 mg/dL (70-110)
[2021-04-18] MEDS: polyethylene glycol 3350 Pkt 17 gm PO (12:15)
[2021-04-18] MEDS: docusate sodium 100 mg Capsule PO (12:15)
--- NOTE | 2021-04-18 14:06 | PM.PN ---
Subjective Subjective: Interval history: Patient was very anxious and tearful today. Stated last evening she had an episode of respiratory distress with exertion. 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 Urinary Catheter Management^: Matthews: Cath Placed During This Visit: yes, but has since been removed by the nurse Reason for Continuing Indwelling Catheter: Decision to DC Catheter Urinary Catheter Date of Insertion: 03/23/21 Urinary Catheter Time of Insertion: 16:47 Date Urinary Catheter Removed: 04/02/21 Time Urinary Catheter Discontinued: 16:00 Data : 04/17/21 04:48 04/17/21 04:48 A&P Assessment and plan (1) COVID-19: s/p remdesivir 03/23-03/27 1 dose of Tocilizumab given 03/23, Fungal series - yeast Repeat blood cultures, sputum cultures, urine cultures, all negative Blood cultures negative to date MRSA PCR negative. Bacterial antigen panel negative. Appreciate pulmonary consultation Pulmonary toilet, incentive spirometer, flutter valve Encourage prone positioning Wean oxygen as tolerated Given anxiety start low-dose Klonopin. Repeat labs in am Completed decadron Monitoring off abx Weaned to NC - recommended o2 via pendulum Home o2 eval at time of discharge. Unchanged Status: Acute (2) Acute respiratory failure: Status: Acute Qualifiers: Respiratory failure complication: hypoxia Qualified Code(s): J96.01 - Acute respiratory failure with hypoxia (3) Asthma: Continue pulmonary toilet Status: Chronic Qualifiers: Asthma severity: mild Asthma persistence: intermittent Asthma complication type: uncomplicated Qualified Code(s): J45.20 - Mild intermittent asthma, uncomplicated (4) ARDS (adult respiratory distress syndrome): Status: Acute Additional A&P Information Anxiety Continue PRN klonopin Diabetes mellitus. Novolog 20 units TIDAC Long-acting 120 mg subcu b.i.d. Continue to adjust insulin as needed Transaminitis. Hepatitis panel negative. Abdominal ultrasound demonstrates likely cyst. AFP without significant elevation Labs stable Klebsiella UTI Status post treatment. Chronic pain syndrome Pain pump Ultram added Full code Lovenox for DVT prophylaxis Attestations Medical Necessity Statement*: Require further hospitalization for management of COVID-19 Time Spent in Patient Care: Greater than 35 minutes (>than 50% of time spent in counselling and/or direct pt care on unit). 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
[2021-04-18 17:10] LABS: Glucose Point of Care 364 mg/dL (70-110)
[2021-04-18 21:23] LABS: Glucose Point of Care 325 mg/dL (70-110)
[2021-04-18] MEDS: aspirin 81 mg EC Tablet PO (22:04)
[2021-04-18] MEDS: atorvastatin 40 mg Tablet 20 MG PO (22:04)
[2021-04-18] MEDS: pantoprazole DR 40 mg Tablet PO (22:05)
[2021-04-19] VITALS (14 sets, daily range): BP systolic 123–140; BP diastolic 83–88; PULSE 80–117; RESP 14–27; TEMP 36.4–36.7; O2SAT 79–97
[2021-04-19] MEDS: albuterol 8 gm MDI 1 PUFF INHALATION ×4 (04:01→20:00)
[2021-04-19] MEDS: acetaminophen 325 mg Tablet 650 MG PO ×3 (06:21→22:25)
[2021-04-19] MEDS: atenolol 50 mg Tablet 25 MG PO (06:21)
[2021-04-19 06:53] LABS: Glucose Point of Care 309 mg/dL (70-110)
[2021-04-19 07:17] LABS: Basophils # 0.1 10^3/uL (0.0-0.1); Basophils % 0.5 %; Eosinophils # 0.8 10^3/uL (0.0-0.8); Hematocrit 43.3 % (37.0-47.0); Hemoglobin 13.4 g/dL (11.5-15.3); Lymphocytes # 2.6 10^3/uL (0.8-4.8); Lymphocytes % 27.5 %; Mean Corpuscular HGB Conc 30.9 g/dL (30.0-36.0); Mean Corpuscular Hemoglobin 26.2 pg (28.0-34.0); Mean Corpuscular Volume 84.6 fl (81-99); Mean Platelet Volume 11.5 fL (7.4-10.4); Monocytes # 0.7 10^3/uL (0.2-0.9); Monocytes % 7.7 %; Neutrophils # 5.05 10^3/uL (1.8-7.7); Neutrophils % 54.2 %; Nucleated Red Blood Cells % 0 %; Platelet Count 163 10^3/cmm (130-400); Red Blood Count 5.12 10^6/uL (4.1-5.3); Red Cell Distribution Width 20.6 % (12.1-15.1); White Blood Count 9.3 10^3/uL (4.0-10.0)
[2021-04-19 07:39] LABS: Alanine Aminotransferase 127 U/L (0-33); Albumin Level 3.2 g/dL (3.5-5.2); Alkaline Phosphatase 164 IU/L (35-105); Anion Gap 14.1 (5-19); Aspartate Amino Transferase 72 U/L (0-32); Blood Urea Nitrogen 12 mg/dL (6-20); Calcium 8.4 mg/dL (8.5-10.5); Carbon Dioxide 29 mmol/L (22-29); Chloride 98 mmol/L (98-107); Glomerular Filtration Rate 136.6 mL/min (90-130); Glucose 354 mg/dL (65-115); Osmolality Calculated 298 mOsm/kg (285-295); Potassium 4.1 mmol/L (3.5-5.1); Sodium 137 mmol/L (136-145); Total Bilirubin 0.3 mg/dL (0.15-1.2); Total Protein 6.2 g/dL (6.6-8.7)
[2021-04-19 08:02] LABS: Procalcitonin 0.11 ng/mL (0-0.5)
[2021-04-19] MEDS: docusate sodium 100 mg Capsule PO ×2 (09:23→17:00)
[2021-04-19] MEDS: duloxetine 20 mg Capsule 40 MG PO (09:23)
[2021-04-19] MEDS: cetirizine 10 mg Tablet PO (09:23)
[2021-04-19 11:55] LABS: Glucose Point of Care 240 mg/dL (70-110)
[2021-04-19] MEDS: enoxaparin 40 mg/0.4 mL Syringe SUBCUT ×2 (14:15→22:42)
[2021-04-19 16:57] LABS: Glucose Point of Care 231 mg/dL (70-110)
--- NOTE | 2021-04-19 17:17 | PM.PN ---
Subjective Subjective: Interval history: Patient was placed on high-flow nasal cannula. Was at 45 L with 50% FiO2. Oxygen saturations were in the mid 90s. Was quite anxious. Complaining of headaches. No fever, chills, nausea vomiting. No pleuritic chest pain. Medications: Reviewed: Yes Vitals/I&O/Wt Last Vital Signs Temp 97.5 F L 04/19/21 15:55 Pulse 94 04/19/21 15:55 Resp 14 04/19/21 15:55 BP 123/88 04/19/21 15:55 Pulse Ox 97 04/19/21 15:55 04/19/21 04/19/21 04/19/21 06:59 14:59 22:59 Intake Total 360 / 360 Output Total 850 / 850 Balance -850 / -610 360 / 360 Physical Exam Narrative: EXAM NARRATIVE: GEN: Awake, alert and oriented, no acute distress CVS: S1S2 N RS: CTA B/L nc Abd: Soft, nt/nd , bs+ CATEGORY MANAGER: no focal neuro deficits Urinary Catheter Management^: Matthews: Cath Placed During This Visit: yes, but has since been removed by the nurse Reason for Continuing Indwelling Catheter: Decision to DC Catheter Urinary Catheter Date of Insertion: 03/23/21 Urinary Catheter Time of Insertion: 16:47 Date Urinary Catheter Removed: 04/02/21 Time Urinary Catheter Discontinued: 16:00 Data : 04/19/21 06:27 04/19/21 06:27 Micro: Microbiology 04/18/21 12:41 Gram Stain - Final Sputum - Expectorated Sputum Sputum Culture - Preliminary Gram Negative Rods 04/01/21 14:58 Urine Culture - Final Urine Catheterized Gaby albicans A&P Assessment and plan (1) COVID-19: s/p remdesivir 03/23-03/27 1 dose of Tocilizumab given 03/23, Fungal series - yeast Repeat blood cultures, sputum cultures, urine cultures, all negative Blood cultures negative to date MRSA PCR negative. Bacterial antigen panel negative. Appreciate pulmonary consultation Pulmonary toilet, incentive spirometer, flutter valve Encourage prone positioning Wean oxygen as tolerated Given anxiety start low-dose Klonopin. Repeat labs in am Completed decadron Sputum growing gram neg rods - tx with > 7 of doxycycline - > if febrile will resume abx Continue to wean high-flow nasal cannula which was restarted yesterday. Will order COVID-19 labs in a.m.. Status: Acute (2) Acute respiratory failure: Status: Acute Qualifiers: Respiratory failure complication: hypoxia Qualified Code(s): J96.01 - Acute respiratory failure with hypoxia (3) Asthma: Continue pulmonary toilet Status: Chronic Qualifiers: Asthma severity: mild Asthma persistence: intermittent Asthma complication type: uncomplicated Qualified Code(s): J45.20 - Mild intermittent asthma, uncomplicated (4) ARDS (adult respiratory distress syndrome): Status: Acute Additional A&P Information Anxiety Continue PRN klonopin Diabetes mellitus. Novolog 20 units TIDAC Long-acting 120 mg subcu b.i.d. Continue to adjust insulin as needed Transaminitis. Hepatitis panel negative. Abdominal ultrasound demonstrates likely cyst. AFP without significant elevation Labs stable Klebsiella UTI Status post treatment. Chronic pain syndrome Pain pump Ultram added Full code Lovenox for DVT prophylaxis Attestations Medical Necessity Statement*: Continue hospitalization for management of COVID-19 Time Spent in Patient Care: Greater than 35 minutes (>than 50% of time spent in counselling and/or direct pt care on unit). 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
[2021-04-19 21:03] LABS: Glucose Point of Care 232 mg/dL (70-110)
[2021-04-19] MEDS: aspirin 81 mg EC Tablet PO (22:22)
[2021-04-19] MEDS: atorvastatin 40 mg Tablet 20 MG PO (22:23)
[2021-04-19] MEDS: pantoprazole DR 40 mg Tablet PO (22:25)
[2021-04-19] MEDS: CLONazepam 0.5 mg Tablet 0.25 MG PO (22:26)
[2021-04-20] VITALS (18 sets, daily range): BP systolic 115–161; BP diastolic 77–95; PULSE 83–115; RESP 12–20; TEMP 36.6–36.7; O2SAT 86–98
[2021-04-20] MEDS: albuterol 8 gm MDI 1 PUFF INHALATION ×2 (02:30→20:10)
[2021-04-20] MEDS: atenolol 50 mg Tablet 25 MG PO (05:52)
[2021-04-20 06:47] LABS: Glucose Point of Care 339 mg/dL (70-110)
--- NOTE | 2021-04-20 08:54 | PC.CHAP ---
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 [] Patient/Family/Request visit [] Outpatient visit [] Follow-up visit [] Physician referral [] Code/Alert [x] Routine visit [] Staff referral [] Actively dying [] Patient sleeping [] Family support [] [] Out of room [] Palliative care [] [] Receiving care in room [] Pre-surgical visit [] Trauma [] Long length of stay [] ICU visit [x] Other: 2a Relational/Emotional Strength [] Patient feels connected with others/family/visitors/staff [] Distress [] Loneliness/isolation [] Abandonment Spirituality of Patient [] Person of Barbara [] Attends Mandaeism of their Barbara [] Believes in Prayer [] Reads Bible or Sabianism materials [] There are Spiritual issues to be addressed Make Up Operator 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 [x] Prayer [] Active listening [] Non-anxious presence [] Spiritual/emotional support [] Crisis/trauma care [] Spiritual counseling [] Bereavement support [] Provided bereavement packet [] Provided Bible/devotional materials [] Provided toy/stuffed animal, coloring book to patient or family member [] Provided Communion [] Anointing/[place] [] Salvation [x] Completed spiritual assessment [] Other: Impact on Illness or Injury [] Angry [] Fearful [] Anxious [] Often cries [] Exhaustion [] Unable to work [] Unable to attend jew [] Unable to walk/stand [] Unable to read [] Unable to drive [] Unable to eat/drink [] Unable to sleep [] Unable to be with family [] Patient intubated [] Other: Summary continues to have difficulty sleeping... always very pleasant.. Time spent with patient
[2021-04-20 09:36] LABS: Basophils # 0.1 10^3/uL (0.0-0.1); Basophils % 0.6 %; Eosinophils # 0.8 10^3/uL (0.0-0.8); Eosinophils % 7.2 %; Hematocrit 42.8 % (37.0-47.0); Lymphocytes # 2.8 10^3/uL (0.8-4.8); Lymphocytes % 27.4 %; Mean Corpuscular HGB Conc 30.4 g/dL (30.0-36.0); Mean Corpuscular Hemoglobin 26.1 pg (28.0-34.0); Mean Corpuscular Volume 85.8 fl (81-99); Mean Platelet Volume 11.2 fL (7.4-10.4); Monocytes # 0.8 10^3/uL (0.2-0.9); Monocytes % 7.6 %; Neutrophils # 5.83 10^3/uL (1.8-7.7); Neutrophils % 56.4 %; Nucleated Red Blood Cells % 0 %; Platelet Count 154 10^3/cmm (130-400); Red Blood Count 4.99 10^6/uL (4.1-5.3); Red Cell Distribution Width 20.9 % (12.1-15.1); White Blood Count 10.4 10^3/uL (4.0-10.0)
[2021-04-20 09:51] LABS: D Dimer 0.36 ug/mIFEU (0-0.59)
[2021-04-20] MEDS: duloxetine 20 mg Capsule 40 MG PO (09:55)
[2021-04-20] MEDS: polyethylene glycol 3350 Pkt 17 gm PO (09:55)
[2021-04-20] MEDS: enoxaparin 40 mg/0.4 mL Syringe SUBCUT (09:55)
[2021-04-20] MEDS: budesonide 0.5 mg/2 mL Neb INHALATION ×2 (09:56→20:10)
[2021-04-20] MEDS: docusate sodium 100 mg Capsule PO ×2 (09:56→17:14)
[2021-04-20] MEDS: CLONazepam 0.5 mg Tablet 0.25 MG PO ×2 (09:56→20:57)
[2021-04-20] MEDS: cetirizine 10 mg Tablet PO (09:56)
[2021-04-20] MEDS: ipratropium-albuterol 3 mL Neb INHALATION ×3 (09:56→20:10)
[2021-04-20] MEDS: acetaminophen 325 mg Tablet 650 MG PO ×2 (09:58→20:59)
[2021-04-20] MEDS: fluconazole 100 mg Tablet PO (10:01)
[2021-04-20] MEDS: benzonatate 100 mg Capsule PO ×3 (10:01→20:58)
[2021-04-20] MEDS: amoxicillin-clav 500-125 mg Tablet 1 TAB PO ×3 (10:01→20:58)
[2021-04-20 10:06] LABS: Alanine Aminotransferase 138 U/L (0-33); Alkaline Phosphatase 169 IU/L (35-105); Anion Gap 14.3 (5-19); Aspartate Amino Transferase 83 U/L (0-32); Blood Urea Nitrogen 12 mg/dL (6-20); Calcium 8.5 mg/dL (8.5-10.5); Carbon Dioxide 28 mmol/L (22-29); Chloride 98 mmol/L (98-107); Globulin 3.3 g/dL (1.3-4.6); Glomerular Filtration Rate 136.6 mL/min (90-130); Glucose 371 mg/dL (65-115); Iron 36 ug/dL (37-145); Osmolality Calculated 297 mOsm/kg (285-295); Percent Saturation 14.2 % (20-50); Potassium 4.3 mmol/L (3.5-5.1); Sodium 136 mmol/L (136-145); Total Bilirubin 0.5 mg/dL (0.15-1.2); Total Iron Binding Capacity 252 mcg/dl; Total Protein 6.3 g/dL (6.6-8.7); Unsaturated Iron Binding 216 ug/dL (112-347)
[2021-04-20 12:04] LABS: Glucose Point of Care 342 mg/dL (70-110)
--- NOTE | 2021-04-20 15:04 | PC.RESP ---
RT Shift Note Frequent safety and respiratory rounds continue. Orders completed as indicated. Patient monitored pre and post treatments throughout shift. Patient [Did.] tolerate treatments appropriately. Condition [.DidNotChange]. Patient and/or claims customer service representative educated on respiratory treatment and medications. Patient and/or claims customer service representative [verbalized understanding]. Will continue to monitor patient progress.
[2021-04-20 16:46] LABS: Glucose Point of Care 272 mg/dL (70-110)
--- NOTE | 2021-04-20 16:57 | P.PN_ITS ---
Subjective Subjective: Interval history: No events overnight. Patient has remained hemodynamically stable. Continues to require high oxygen supplementation going up to 45 L 50%. Today morning on examination sitting up in bed. As per the respite therapist patient did go to the bedside commode and at that time was unhooked from the oxygen supplementation and desaturated to 60% and took up to 1520 minutes to get her back up to 90% on heated high flow. We did discuss that unfortunately patient has been over here for more than 28 days and she is still requiring high oxygen supplementation even though she continues to do well with incentive spirometry and flutter valve. We also discussed that going forward what she needs is good pulmonary rehabilitation which unfortunately we do not have at [facility] for which she should be transferred to LTAC when possible. Patient verbalized understanding and now has agreed for the same. Medications: Reviewed: Yes Vitals/I&O/Wt Last Vital Signs Temp 98.1 F 04/20/21 04:00 Pulse 103 H 04/20/21 15:03 Resp 18 04/20/21 15:03 BP 115/77 04/20/21 08:00 Pulse Ox 92 04/20/21 15:03 04/20/21 04/20/21 04/20/21 06:59 14:59 22:59 Intake Total 480 / 840 474 / 474 Output Total 1100 / 1100 Balance -620 / -260 474 / 474 Physical Exam Narrative: EXAM NARRATIVE: General: No acute distress, AO x3, morbidly obese, anxious HEENT: PERRLA, pupils bilaterally equal and reactive, left eye mild ecchymosis present Chest: Normal vesicular breath sounds, no added sounds, equal good air entry bilaterally CVS: S1-S2 regular, no murmurs, no tachycardia, no gallops, no rubs Abdomen: Soft, nontender, no organomegaly, bowel sounds present Neuro: No focal deficits, no facial deformity, AO x3, power 5/5 in all limbs Urinary Catheter Management^: Matthews: Cath Placed During This Visit: yes, but has since been removed by the nurse Reason for Continuing Indwelling Catheter: Decision to DC Catheter Urinary Catheter Date of Insertion: 03/23/21 Urinary Catheter Time of Insertion: 16:47 Date Urinary Catheter Removed: 04/02/21 Time Urinary Catheter Discontinued: 16:00 Data : 04/20/21 09:20 04/20/21 09:20 Micro: Microbiology 04/18/21 12:41 Gram Stain - Final Sputum - Expectorated Sputum Sputum Culture - Final Pseudomonas aeruginosa A&P Assessment and plan (1) COVID-19: s/p remdesivir 03/23-03/27 1 dose of Tocilizumab given 03/23, Fungal series - yeast Repeat blood cultures, sputum cultures, urine cultures, all negative Blood cultures negative to date MRSA PCR negative. Bacterial antigen panel negative. Appreciate pulmonary consultation Pulmonary toilet, incentive spirometer, flutter valve Encourage prone positioning Wean oxygen as tolerated Given anxiety start low-dose Klonopin. Repeat labs in am Completed decadron Sputum growing gram neg rods - tx with > 7 of doxycycline - > if febrile will resume abx Continue to wean high-flow nasal cannula which was restarted yesterday. Will order COVID-19 labs in a.m.. Status: Acute (2) Acute respiratory failure: Status: Acute Qualifiers: Respiratory failure complication: hypoxia Qualified Code(s): J96.01 - Acute respiratory failure with hypoxia (3) Asthma: Continue pulmonary toilet Status: Chronic Qualifiers: Asthma severity: mild Asthma persistence: intermittent Asthma complication type: uncomplicated Qualified Code(s): J45.20 - Mild intermittent asthma, uncomplicated (4) ARDS (adult respiratory distress syndrome): Status: Acute Additional A&P Information Hypoxia secondary to COVID-19 pneumonia: Moderate to severe disease. Prolonged hospitalization. Oxygen supplementation keeping saturation over 88%. ABG in a.m. It has finished a course of 10 days of dexamethasone and 5 days of remdesivir. Post 1 dose Actemra on March 23. Vitamin C, zinc. Start patient on DuoNebs, budesonide. Pulmonary toilet with incentive spirometry flutter valve. We will monitor inflammatory markers including ferritin, ESR, CRP, D-dimer, fibrinogen. For now inflammatory markers have been trended down and has normalized. D-dimer normal. Patient has been on Lovenox 40 mg subcu every 12 hourly. Will change to Eliquis 2.5 mg twice daily. Monitor for anemia or bleeding. Check procalcitonin. Patient's sputum culture positive for Pseudomonas. White count mildly elevated today. Given patient still requiring high oxygen supplementation will start patient on oral Augmentin and Levaquin. Levaquin will cover for Pseudomonas as per culture sensitivities. Patient has already had imipenem up to April 05 and prior to that Zosyn till March 30. Start patient on fluconazole orally for 7-day course for Gaby albicans in urine. Echocardiogram done earlier in the admission shows an EF of 60%, no pericardial effusion. Given hypoxia will try to keep patient as negative as possible. Give patient oral Lasix 40 mg stat. Patient net negative since admission. Strict input output charting, daily weights. Anxiety Continue home dose of Cymbalta. Add donepezil nightly. Continue PRN klonopin Diabetes 1 mellitus: HbA1c 12.9. Blood sugar still elevated. Increase NovoLog 25 units 3 times daily, continue with insulin sliding scale high-dose protocol. Long-acting 120 mg subcu b.i.d. Continue to adjust insulin as needed Transaminitis. Hepatitis panel negative. Abdominal ultrasound demonstrates likely cyst. AFP without significant elevation Labs stable Klebsiella UTI Status post treatment. Chronic pain syndrome Pain pump Ultram added Full code Eliquis 2.5 mg twice daily for DVT prophylaxis. Protonix for PUD prophylaxis. Discharge planning:We did discuss that unfortunately patient has been over here for more than 28 days and she is still requiring high oxygen supplementation even though she continues to do well with incentive spirometry and flutter valve. We also discussed that going forward what she needs is good pulmonary rehabilitation which unfortunately we do not have at [facility] for which she should be transferred to LTAC when possible. Patient verbalized understanding and now has agreed for the same. Case management has been alerted. Attestations Medical Necessity Statement*: Patient requires further hospitalization for management of severe hypoxia secondary COVID-19 pneumonia and still requiring heated high flow oxygen supplementation to maintain saturation over 90% Time Spent in Patient Care: Greater than 35 minutes (>than 50% of time spent in counselling and/or direct pt care on unit) . 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
[2021-04-20] MEDS: ferrous gluconate 324 mg Tablet PO (17:14)
[2021-04-20 20:41] LABS: Glucose Point of Care 304 mg/dL (70-110)
[2021-04-20] MEDS: atorvastatin 40 mg Tablet 20 MG PO (20:58)
[2021-04-20] MEDS: apixaban 5 mg Tablet 2.5 MG PO (20:58)
[2021-04-20] MEDS: aspirin 81 mg EC Tablet PO (20:58)
[2021-04-20] MEDS: donepezil 5 MG Tablet 10 MG PO (20:58)
[2021-04-20] MEDS: pantoprazole DR 40 mg Tablet PO (20:58)
[2021-04-20] MEDS: TRAMadol 50 mg Tablet PO (21:47)
[2021-04-21] VITALS (19 sets, daily range): BP systolic 123–151; BP diastolic 55–94; PULSE 95–114; RESP 14–22; TEMP 36.7–36.8; O2SAT 89–98
[2021-04-21] MEDS: albuterol 8 gm MDI 1 PUFF INHALATION ×2 (02:08→21:13)
[2021-04-21] MEDS: ipratropium-albuterol 3 mL Neb INHALATION ×4 (02:08→21:13)
[2021-04-21 05:43] LABS: Basophils % 0.4 %; Eosinophils # 0.6 10^3/uL (0.0-0.8); Eosinophils % 6.5 %; Hematocrit 42.9 % (37.0-47.0); Hemoglobin 12.8 g/dL (11.5-15.3); Mean Corpuscular HGB Conc 29.8 g/dL (30.0-36.0); Mean Platelet Volume 11.1 fL (7.4-10.4); Monocytes # 0.8 10^3/uL (0.2-0.9); Monocytes % 8.3 %; Neutrophils # 5.88 10^3/uL (1.8-7.7); Neutrophils % 62.8 %; Nucleated Red Blood Cells % 0 %; Platelet Count 157 10^3/cmm (130-400); Red Blood Count 4.93 10^6/uL (4.1-5.3); Red Cell Distribution Width 21.1 % (12.1-15.1); White Blood Count 9.4 10^3/uL (4.0-10.0)
[2021-04-21 05:59] LABS: Alanine Aminotransferase 133 U/L (0-33); Albumin Level 3.2 g/dL (3.5-5.2); Alkaline Phosphatase 190 IU/L (35-105); Anion Gap 12.1 (5-19); Aspartate Amino Transferase 57 U/L (0-32); Blood Urea Nitrogen 8 mg/dL (6-20); Calcium 8.9 mg/dL (8.5-10.5); Carbon Dioxide 30 mmol/L (22-29); Chloride 99 mmol/L (98-107); Globulin 2.9 g/dL (1.3-4.6); Glomerular Filtration Rate 176.8 mL/min (90-130); Glucose 228 mg/dL (65-115); Osmolality Calculated 290 mOsm/kg (285-295); Potassium 4.1 mmol/L (3.5-5.1); Sodium 137 mmol/L (136-145); Total Bilirubin 0.7 mg/dL (0.15-1.2); Total Protein 6.1 g/dL (6.6-8.7)
[2021-04-21 06:03] LABS: C Reactive Protein 39.2 mg/L (0.0-4.9)
[2021-04-21 06:38] LABS: Glucose Point of Care 225 mg/dL (70-110)
[2021-04-21] MEDS: levoFLOXacin 500 mg Tablet PO (06:48)
[2021-04-21] MEDS: atenolol 50 mg Tablet 25 MG PO (06:49)
[2021-04-21 07:07] LABS: Erythrocyte Sedimentation Rate 29 mm/hr (0-15)
[2021-04-21] MEDS: amoxicillin-clav 500-125 mg Tablet 1 TAB PO ×3 (07:54→21:31)
[2021-04-21] MEDS: fluconazole 100 mg Tablet PO (07:54)
[2021-04-21] MEDS: benzonatate 100 mg Capsule PO ×3 (07:55→21:31)
[2021-04-21] MEDS: apixaban 5 mg Tablet 2.5 MG PO ×2 (07:55→21:33)
[2021-04-21] MEDS: cetirizine 10 mg Tablet PO (07:55)
[2021-04-21] MEDS: ferrous gluconate 324 mg Tablet PO ×2 (07:55→16:48)
[2021-04-21] MEDS: duloxetine 20 mg Capsule 40 MG PO (07:55)
[2021-04-21] MEDS: polyethylene glycol 3350 Pkt 17 gm PO (07:56)
--- NOTE | 2021-04-21 08:42 | CT_ITS ---
WS: [id number] CT CHEST TECHNIQUE: Noncontrast CT of the chest with coronal and sagittal reformatted images. CLINICAL INFORMATION: covid/superimposed bacterial pna COMPARISON: March 23, 2021 DLP: 836.[address] scans at [facility] use at least one of these dose optimization techniques: automat ed exposure control; mA and/or kV adjustment per patient size (includes targeted exams where dose is matched to clinical indication); or iterative reconstruction. FINDINGS: Diffuse bilateral hazy groundglass infiltrates compatible with COVID 19 Pneumonia. Infiltrates are sl ightly improved since March 23, 2021. Overall distribution is unchanged. No focal consolidation or sig nificant pleural fluid. No mediastinal or hilar lymphadenopathy. No axillary lymphadenopathy. Adrenal glands are normal. Hete rogeneous attenuation right hepatic lobe nonspecific. This can be followed up with contrast-enhanced CT abdomen pelvis. Dorsal spinal stimulator CT/CT chest wo con [id number] IMPRESSION: 1. Diffuse hazy bilateral groundglass infiltrates similar in appearance to the prior examination and slightly improved. 2. No focal pneumonia or significant pleural fluid. 3. No mediastinal or hilar lymphadenopathy. 4. Diffuse heterogeneity in the right hepatic lobe nonspecific appears unchang ed. Metastatic disease not excluded as previously described. This could be furt her evaluated with contrast-enhanced CT abdomen pelvis.
--- NOTE | 2021-04-21 08:42 | PC.CHAP ---
Pastoral Care Encounter/Spiritual Assessment Type of Contact [] Declined pharmaceutical process engineer visit [] Patient/Family/Request visit [] Outpatient visit [] Follow-up visit [] Physician referral [] Code/Alert [x] Routine visit [] Staff referral [] Actively dying [] Patient sleeping [] Family support [] [] Out of room [] Palliative care [] [] Receiving care in room [] Pre-surgical visit [] Trauma [] Long length of stay [] ICU visit [x] Other: 2a.. being transferred to facility for breathing therapy.. sweet young lady Relational/Emotional Strength [] Patient feels connected with others/family/visitors/staff [] Distress [] Loneliness/isolation [] Abandonment Spirituality of Patient [] Person of Barbara [] Attends Pentecostalism of their [place] [] Believes in Prayer [] Reads Bible or Sabianist materials [] There are Spiritual issues to be addressed Pharmacy Ancillary 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 [x] Prayer [] Active listening [] Non-anxious presence [] Spiritual/emotional support [] Crisis/trauma care [] Spiritual counseling [] Bereavement support [] Provided bereavement packet [] Provided Bible/devotional materials [] Provided toy/stuffed animal, coloring book to patient or family member [] Provided Communion [] Anointing/[place] [] Salvation [x] Completed spiritual assessment [] Other: Impact on Illness or Injury [] Angry [] Fearful [] Anxious [] Often cries [] Exhaustion [] Unable to work [] Unable to attend holiness [] Unable to walk/stand [] Unable to read [] Unable to drive [] Unable to eat/drink [] Unable to sleep [] Unable to be with family [] Patient intubated [] Other: Summary Time spent with patient
--- NOTE | 2021-04-21 08:45 | PM.PN ---
Subjective Subjective: Interval history: No events overnight. Patient has remained hemodynamically stable. Continues to require high oxygen supplementation going up to 45 L 50%. Today morning on examination sitting up in bed. As per the respite therapist patient did go to the bedside commode and at that time was unhooked from the oxygen supplementation and desaturated to 60% and took up to 1520 minutes to get her back up to 90% on heated high flow. We did discuss that unfortunately patient has been over here for more than 28 days and she is still requiring high oxygen supplementation even though she continues to do well with incentive spirometry and flutter valve. We also discussed that going forward what she needs is good pulmonary rehabilitation which unfortunately we do not have at [facility] for which she should be transferred to LTAC when possible. Patient verbalized understanding and now has agreed for the same. Medications: Reviewed: Yes Vitals/I&O/Wt Last Vital Signs Temp 98.1 F 04/21/21 07:51 Pulse 101 H 04/21/21 07:51 Resp 18 04/21/21 07:51 BP 123/94 04/21/21 07:51 Pulse Ox 97 04/21/21 07:51 04/20/21 04/21/21 04/21/21 22:59 06:59 14:59 Intake Total 360 / 360 Balance 360 / 360 Weight last 48 hrs Weight 147.418 kg Physical Exam Narrative: EXAM NARRATIVE: General: No acute distress, AO x3, morbidly obese, anxious HEENT: PERRLA, pupils bilaterally equal and reactive, left eye mild ecchymosis present Chest: Normal vesicular breath sounds, no added sounds, equal good air entry bilaterally CVS: S1-S2 regular, no murmurs, no tachycardia, no gallops, no rubs Abdomen: Soft, nontender, no organomegaly, bowel sounds present Neuro: No focal deficits, no facial deformity, AO x3, power 5/5 in all limbs Urinary Catheter Management^: Matthews: Cath Placed During This Visit: yes, but has since been removed by the nurse Reason for Continuing Indwelling Catheter: Decision to DC Catheter Urinary Catheter Date of Insertion: 03/23/21 Urinary Catheter Time of Insertion: 16:47 Date Urinary Catheter Removed: 04/02/21 Time Urinary Catheter Discontinued: 16:00 Data : 04/21/21 05:14 04/21/21 05:14 Micro: Microbiology 04/18/21 12:41 Gram Stain - Final Sputum - Expectorated Sputum Sputum Culture - Final Pseudomonas aeruginosa A&P Assessment and plan (1) ARDS (adult respiratory distress syndrome): Status: Acute (2) Pseudomonas pneumonia: Status: Acute (3) COVID-19: Status: Acute (4) Controlled diabetes mellitus type 1 without complications: Status: Chronic (5) Essential (primary) hypertension: Status: Chronic (6) Morbid obesity with BMI of 45.0-49.9, adult: Status: Acute (7) Asthma: Continue pulmonary toilet Status: Chronic Qualifiers: Asthma severity: mild Asthma persistence: intermittent Asthma complication type: uncomplicated Qualified Code(s): J45.20 - Mild intermittent asthma, uncomplicated Additional A&P Information Hypoxia secondary to COVID-19 pneumonia: Moderate to severe disease. Prolonged hospitalization. Oxygen supplementation keeping saturation over 88%. ABG in a.m. It has finished a course of 10 days of dexamethasone and 5 days of remdesivir. Post 1 dose Actemra on March 23. Vitamin C, zinc. Start patient on DuoNebs, budesonide. Pulmonary toilet with incentive spirometry flutter valve. We will monitor inflammatory markers including ferritin, ESR, CRP, D-dimer, fibrinogen. For now inflammatory markers have been trended down and has normalized. D-dimer normal. Patient has been on Lovenox 40 mg subcu every 12 hourly. Will change to Eliquis 2.5 mg twice daily. Monitor for anemia or bleeding. Check procalcitonin. Patient's sputum culture positive for Pseudomonas. White count mildly elevated today. Given patient still requiring high oxygen supplementation will start patient on oral Augmentin and Levaquin. Levaquin will cover for Pseudomonas as per culture sensitivities. Patient has already had imipenem up to April 05 and prior to that Zosyn till March 30. Start patient on fluconazole orally for 7-day course for Gaby albicans in urine. Echocardiogram done earlier in the admission shows an EF of 60%, no pericardial effusion. Given hypoxia will try to keep patient as negative as possible. Give patient oral Lasix 40 mg stat. Patient net negative since admission. Strict input output charting, daily weights. Anxiety Continue home dose of Cymbalta. Add donepezil nightly. Continue PRN klonopin Diabetes 1 mellitus: HbA1c 12.9. Blood sugar still elevated. Increase NovoLog 25 units 3 times daily, continue with insulin sliding scale high-dose protocol. Long-acting 120 mg subcu b.i.d. Continue to adjust insulin as needed Transaminitis. Hepatitis panel negative. Abdominal ultrasound demonstrates likely cyst. AFP without significant elevation Labs stable Klebsiella UTI Status post treatment. Chronic pain syndrome Pain pump Ultram added Full code Eliquis 2.5 mg twice daily for DVT prophylaxis. Protonix for PUD prophylaxis. Discharge planning:We did discuss that unfortunately patient has been over here for more than 28 days and she is still requiring high oxygen supplementation even though she continues to do well with incentive spirometry and flutter valve. We also discussed that going forward what she needs is good pulmonary rehabilitation which unfortunately we do not have at [facility] for which she should be transferred to LTAC when possible. Patient verbalized understanding and now has agreed for the same. Case management has been alerted. Coding Level of Care Code Acute Network Contract Manager for [facility] Fwd Diagnoses ARDS (adult respiratory distress syndrome) J80 Pseudomonas pneumonia J15.1 COVID-19 U07.1 Controlled diabetes mellitus type 1 without complications E10.9 Essential (primary) hypertension I10 Morbid obesity with BMI of 45.0-49.9, adult E66.01; Z68.42 Asthma J45.20 Asthma severity: mild Asthma persistence: intermittent Asthma complication type: uncomplicated
[2021-04-21] MEDS: budesonide 0.5 mg/2 mL Neb INHALATION ×2 (08:51→21:13)
[2021-04-21 09:38] LABS: Procalcitonin 0.17 ng/mL (0-0.5)
[2021-04-21 10:47] LABS: Glucose Point of Care 388 mg/dL (70-110)
[2021-04-21] MEDS: docusate sodium 100 mg Capsule PO ×2 (10:56→16:48)
[2021-04-21] MEDS: CLONazepam 0.5 mg Tablet 0.25 MG PO ×2 (10:59→22:05)
[2021-04-21] MEDS: acetaminophen 325 mg Tablet 650 MG PO ×2 (10:59→22:02)
--- NOTE | 2021-04-21 13:07 | P.TS_ITS ---
Transfer Summary Providers Date of Admission: 03/23/21 10:16 Date of Discharge: 04/21/21 Attending Provider at Admission: Isrrael Noble MD Attending Provider at Transfer: Tano Kaur MD Consults: Pulmonology/legal support analyst:Dr. Dey Primary Care Provider: Sujatha Giles MD Anticipated Date of Transfer: Anticipated date of transfer: 04/21/21 Receiving Facility & Provider: Receiving Provider: [Dr. Workman] Receiving facility: [[facility]] Diagnoses at Discharge Discharge Diagnosis (1) ARDS (adult respiratory distress syndrome): Status: Acute (2) Pseudomonas pneumonia: Status: Acute (3) COVID-19: Status: Acute (4) Controlled diabetes mellitus type 1 without complications: Status: Chronic (5) Essential (primary) hypertension: Status: Chronic (6) Morbid obesity with BMI of 45.0-49.9, adult: Status: Acute (7) Asthma: Status: Chronic Qualifiers: Asthma severity: mild Asthma persistence: intermittent Asthma complication type: uncomplicated Qualified Code(s): J45.20 - Mild intermittent asthma, uncomplicated Reason for Visit Reason for Visit: cough, N/V, weak Hospital Course Hospital Course Keily Foley is a 40 year old female with PMH asthma type 1 diabetes mellitus, depression, hypertension, fibromyalgia, GERD, hyperlipidemia presented to ED on 03/23/2021 with nausea, vomiting, loose stools and significant shortness of breath. Patient reported being sick for 1 week but her dyspnea was worse last 2 days. Also complained of nonproductive cough with some streaks of blood oc casionally. Similar symptoms in family members but they got better. Patient is not vaccinated to Covid. She is admitted to the hospital for further management of ARDS secondary COVID- 19 pneumonia. She she was placed on high flow 60 L 90% and started on 5-day protocol remdesivir, and received dexamethasone 6 mg daily, and 1 dose Tocilizumab. Because patient requiring high oxygen supplementation going as high as 60 L 90% heated high flow and intermittently going down to 80% on the same patient was transferred to ICU and pulmonology was consulted. Her hospital stay was complicated by her developing confusion and anxiety for which she was started on Precedex drip. Patient never required mechanical ventilation. Because she remained stable on oxygen supplementation she was transferred to medical floor 1000 supplementation requirements were down to 40 L 60%. During hospitalization her blood cultures, MRSA swab, bacterial antigen remain negative. Her hospital stay was further complicated by her requiring high insulin requirements going as high as Lantus of 120 units twice daily with 25 units of subcu Humalog 3 times a day along with correctional insulin sliding scale. Patient has had a prolonged hospitalization going over more than 4 weeks and has continued to require heated high flow and currently requiring up to 40% 35 L saturating 88 to 90%. Given the above further work-up was done and ruled out pulmonary embolism but repeat sputum culture grew Pseudomonas for which she has been started on oral antibiotics with Augmentin and Levaquin as per the culture sensitivities. Her urine culture grew Gaby albicans. On admission patient's urine was positive for Klebsiella. Patient has received multiple antibiotic course with Zosyn up to March 30 and imipenem up to April 05. Patient also complaint of thrush and urine culture was positive for Gaby albicans so she is on fluconazole so 7-day course. During her chest imaging patient was found to have an echogenic lesion in the liver for which abdominal ultrasound was done and it is recommended for patient to have contrast enhanced CT abdomen pelvis with liver protocol once medically stable to rule out cavernous hemangioma versus metastatic disease or liver neoplasm. Given high oxygen supplementation for a prolonged course even after patient participating in bed in bed with incentive spirometry and flutter valve she requires further extensive pulmonary rehab for which patient was referred to LT[facility] and she has been graciously accepted so is being transferred for further management and pulmonary rehab. Physical Exam Narrative: EXAM NARRATIVE: General: No acute distress, AO x3, morbidly obese, anxious HEENT: PERRLA, pupils bilaterally equal and reactive, left eye mild ecchymosis present Chest: Normal vesicular breath sounds, no added sounds, equal good air entry bilaterally CVS: S1-S2 regular, no murmurs, no tachycardia, no gallops, no rubs Abdomen: Soft, nontender, no organomegaly, bowel sounds present Neuro: No focal deficits, no facial deformity, AO x3, power 5/5 in all limbs Urinary Catheter Management^: Matthews: Cath Placed During This Visit: yes, but has since been removed by the nurse Reason for Continuing Indwelling Catheter: Decision to DC Catheter Urinary Catheter Date of Insertion: 03/23/21 Urinary Catheter Time of Insertion: 16:47 Date Urinary Catheter Removed: 04/02/21 Time Urinary Catheter Discontinued: 16:00 TS Data Data Completed and Pending: Completed Studies During Hospitalization Category Date Time Status CT angio chest PE protcl [id number] Urge nt Cat Scan 03/23/21 12:[address] chest wo con 7 1250 Urgent Cat Scan 04/21/21 08:42 Completed XR chest 1V blanca ble [id number] Routine Exams 03/30/21 07:00 Completed XR chest 1V blanca ble [id number] Routine Exams 04/01/21 07:00 Completed XR chest 1V blanca ble [id number] Routine Exams 04/02/21 07:00 Completed XR chest 1V blanca ble [id number] Routine Exams 04/13/21 07:00 Completed XR chest 1V blanca ble [id number] Stat Exams 03/23/21 07:33 Completed CV. echo complete * [id number] Routine Ultrasound 03/30/21 11:49 Completed [place] abdomen limite d [id number] Routine Ultrasound 03/24/21 04:00 Completed Pending at discharge Category Date Time Status C Reactive Protei n AM LABS Lab 04/22/21 04:00 Ordered C Reactive Protei n AM LABS Lab 04/23/21 04:00 Ordered Complete Blood Co unt w/Auto AM LABS Lab 04/22/21 04:00 Ordered Comprehensive Met abolic Panel AM LA BS Lab 04/22/21 04:00 Ordered D Dimer Q48H Lab 04/22/21 04:00 Ordered D Dimer Q48H Lab 04/24/21 04:00 Ordered Erythrocyte Sedim entation Rate Q48H Lab 04/23/21 04:00 Ordered Legionella Antige n STAT Routine Lab 04/21/21 08:44 Uncollected Miscellaneous Karen t Routine Lab 04/20/21 08:00 Received Labs from last 24 hours 04/21/21 04/21/21 04/21/21 10:30 06:20 05:14 WBC RBC Hgb Hct MCV MCH MCHC RDW Plt Count MPV Neut % (Auto) Lymph % (Auto) Anson % (Auto) Eos % (Auto) Baso % (Auto) Neut # (Auto) Lymph # (Auto) Anson # (Auto) Eos # (Auto) Baso # (Auto) Nucleated RBC % (a uto) Nucleated RBCs # ESR Sodium Potassium Chloride Carbon Dioxide Anion Gap BUN Creatinine GFR Calculation Glucose POC Glucose 388 H 225 H Calculated Osmolal ity Calcium Total Bilirubin AST ALT Alkaline Phosphata se C-Reactive Protein Total Protein Albumin Globulin Procalcitonin 0.17 Misc Test Referenc e 04/21/21 04/21/21 04/21/21 05:14 05:14 05:14 WBC RBC Hgb Hct MCV MCH MCHC RDW Plt Count MPV Neut % (Auto) Lymph % (Auto) Anson % (Auto) Eos % (Auto) Baso % (Auto) Neut # (Auto) Lymph # (Auto) Anson # (Auto) Eos # (Auto) Baso # (Auto) Nucleated RBC % (a uto) Nucleated RBCs # ESR 29 H Sodium 137 Potassium 4.1 Chloride 99 Carbon Dioxide 30 H Anion Gap 12.1 BUN 8 Creatinine 0.4 L GFR Calculation 176.8 H Glucose 228 H POC Glucose Calculated Osmolal ity 290 Calcium 8.9 Total Bilirubin 0.7 AST 57 H ALT 133 H Alkaline Phosphata se 190 H C-Reactive Protein 39.2 H Total Protein 6.1 L Albumin 3.2 L Globulin 2.9 Procalcitonin Misc Test Referenc e 04/21/21 04/20/21 04/20/21 05:14 20:24 16:29 WBC 9.4 RBC 4.93 Hgb 12.8 Hct 42.9 MCV 87.0 MCH 26.0 L MCHC 29.8 L RDW 21.1 H Plt Count 157 MPV 11.1 H Neut % (Auto) 62.8 Lymph % (Auto) 21.0 Anson % (Auto) 8.3 Eos % (Auto) 6.5 Baso % (Auto) 0.4 Neut # (Auto) 5.88 Lymph # (Auto) 2.0 Anson # (Auto) 0.8 Eos # (Auto) 0.6 Baso # (Auto) 0.0 Nucleated RBC % (a uto) 0 Nucleated RBCs # 0.0 ESR Sodium Potassium Chloride Carbon Dioxide Anion Gap BUN Creatinine GFR Calculation Glucose POC Glucose 304 H 272 H Calculated Osmolal ity Calcium Total Bilirubin AST ALT Alkaline Phosphata se C-Reactive Protein Total Protein Albumin Globulin Procalcitonin Misc Test Referenc e 04/20/21 08:00 WBC RBC Hgb Hct MCV MCH MCHC RDW Plt Count MPV Neut % (Auto) Lymph % (Auto) Anson % (Auto) Eos % (Auto) Baso % (Auto) Neut # (Auto) Lymph # (Auto) Anson # (Auto) Eos # (Auto) Baso # (Auto) Nucleated RBC % (a uto) Nucleated RBCs # ESR Sodium Potassium Chloride Carbon Dioxide Anion Gap BUN Creatinine GFR Calculation Glucose POC Glucose Calculated Osmolal ity Calcium Total Bilirubin AST ALT Alkaline Phosphata se C-Reactive Protein Total Protein Albumin Globulin Procalcitonin Misc Test Referenc e Pending Addt'l Data from Hospital Stay: Laboratory Results WBC 9.4 10^3/uL (4.0- 10.0) 04/21/21 05:14 RBC 4.93 10^6/uL (4.1 -5.3) 04/21/21 05:14 Hgb 12.8 g/dL (11.5-1 5.3) 04/21/21 05:14 Hct 42.9 % (37.0-47.0 ) 04/21/21 05:14 MCV 87.0 fl (81-99) 04/21/21 05:14 MCH 26.0 pg (28.0-34. 0) L 04/21/21 05:14 MCHC 29.8 g/dL (30.0-3 6.0) L 04/21/21 05:14 RDW 21.1 % (12.1-15.1 ) H 04/21/21 05:14 Plt Count 157 10^3/cmm (130 -400) 04/21/21 05:14 MPV 11.1 fL (7.4-10.4 ) H 04/21/21 05:14 Neut % (Auto) 62.8 % 04/21/21 05:14 Lymph % (Auto) 21.0 % 04/21/21 05:14 Anson % (Auto) 8.3 % 04/21/21 05:14 Eos % (Auto) 6.5 % 04/21/21 05:14 Baso % (Auto) 0.4 % 04/21/21 05:14 Neut # (Auto) 5.88 10^3/uL (1.8 -7.7) 04/21/21 05:14 Lymph # (Auto) 2.0 10^3/uL (0.8- 4.8) 04/21/21 05:14 Anson # (Auto) 0.8 10^3/uL (0.2- 0.9) 04/21/21 05:14 Eos # (Auto) 0.6 10^3/uL (0.0- 0.8) 04/21/21 05:14 Baso # (Auto) 0.0 10^3/uL (0.0- 0.1) 04/21/21 05:14 Nucleated RBC % (a uto) 0 % 04/21/21 05:14 Nucleated RBCs # 0.0 /100WBC 04/21/21 05:14 ESR 29 mm/hr (0-15) H 04/21/21 05:14 PT 13.40 SECONDS (12 .1-14.9) 03/23/21 07:43 INR 0.99 (0.8-1.2) 03/23/21 07:43 APTT 34.2 SECONDS (23. 9-36.7) 03/23/21 07:43 D-Dimer 0.36 ug/mIFEU (0- 0.59) 04/20/21 09:20 Specimen Type Arterial 04/13/21 03:38 Sample Site Radial, left 04/13/21 03:38 ABG pH 7.44 (7.35-7.45) 04/13/21 03:38 ABG pCO2 46.2 mmHg (35-45) H 04/13/21 03:38 ABG pO2 55.8 mmHg (80.0-1 00.0) L 04/13/21 03:38 ABG HCO3 31.4 mmol/L (22-2 6) H 04/13/21 03:38 ABG O2 Saturation 94.1 03/23/21 07:40 ABG Base Excess 6.2 mmol/L (-2.0- 2.0) H 04/13/21 03:38 Alvin Test Pos 04/13/21 03:38 A-a O2 Gradient 78.2 mmHg (5-10) H 03/23/21 07:40 Hematocrit 46.6 % (37-47) 04/13/21 03:38 Hgb O2 Saturation 92.9 % (95-100) L 03/23/21 07:40 Carboxyhemoglobin 1.2 %THgb (0.4-20 .1) 03/23/21 07:40 Methemoglobin 0.1 % (0.4-1.5) L 03/23/21 07:40 Total Hemoglobin 14.1 g/dL (12-16) 03/23/21 07:40 Sodium 133.0 mmol/L (131 -143) 03/23/21 07:40 Potassium 4.3 mmol/L (3.5-5 .0) 03/23/21 07:40 Glucose 364.0 mg/dL (70-1 15) H 03/23/21 07:40 Ionized Calcium 1.1 mmol/L (1.1-1 .4) 03/23/21 07:40 O2 Delivery Device Nc 04/13/21 03:38 O2 Liters/Min 40.0 % 04/13/21 03:38 FiO2 64.0 % 04/13/21 03:38 Jd Edwards Consultant ID yorna 04/13/21 03:38 Sodium 137 mmol/L (136-1 45) 04/21/21 05:14 Potassium 4.1 mmol/L (3.5-5 .1) 04/21/21 05:14 Chloride 99 mmol/L (98-107 ) 04/21/21 05:14 Carbon Dioxide 30 mmol/L (22-29) H 04/21/21 05:14 Anion Gap 12.1 (5-19) 04/21/21 05:14 BUN 8 mg/dL (6-20) 04/21/21 05:14 Creatinine 0.4 mg/dL (0.5-0. 9) L 04/21/21 05:14 GFR Calculation 176.8 mL/min (90- 130) H 04/21/21 05:14 Glucose 228 mg/dL (65-115 ) H 04/21/21 05:14 POC Glucose 388 mg/dL (70-110 ) H 04/21/21 10:30 Estimat Average Gl ucose 324 03/23/21 07:43 Hemoglobin A1c 12.9 % (4.0-6.0) H 03/23/21 07:43 Calculated Osmolal ity 290 mOsm/kg (285- 295) 04/21/21 05:14 Lactic Acid 2.0 mmol/L (0.5-2 .2) 03/23/21 07:43 Calcium 8.9 mg/dL (8.5-10 .5) 04/21/21 05:14 Phosphorus 4.4 mg/dL (2.5-4. 5) 04/07/21 05:40 Magnesium 2.0 mg/dL (1.7-2. 3) 04/09/21 06:25 Iron 36 ug/dL (37-145) L 04/20/21 09:20 TIBC 252 mcg/dl 04/20/21 09:20 % Saturation 14.2 % (20-50) L 04/20/21 09:20 Unsat Iron Binding 216 ug/dL (112-34 7) 04/20/21 09:20 Ferritin 122 ng/mL (15-150 ) 04/13/21 06:23 Total Bilirubin 0.7 mg/dL (0.15-1 .2) 04/21/21 05:14 AST 57 U/L (0-32) H 04/21/21 05:14 ALT 133 U/L (0-33) H 04/21/21 05:14 Alkaline Phosphata se 190 IU/L (35-105) H 04/21/21 05:14 Creatine Kinase 49 U/L (26-192) 04/04/21 05:33 C-Reactive Protein 39.2 mg/L (0.0-4. 9) H 04/21/21 05:14 NT-Pro-B Natriuret Pep 37 pg/mL (0-125) 04/04/21 05:33 Total Protein 6.1 g/dL (6.6-8.7 ) L 04/21/21 05:14 Albumin 3.2 g/dL (3.5-5.2 ) L 04/21/21 05:14 Globulin 2.9 g/dL (1.3-4.6 ) 04/21/21 05:14 Tumor Marker AFP 2.0 ng/mL (0-8.3) 03/25/21 04:51 Procalcitonin 0.17 ng/mL (0-0.5 ) 04/21/21 05:14 TSH 0.71 uIU/mL (0.27 -4.20) 03/23/21 07:43 Urine Color Yellow (Yellow) 03/23/21 17:30 Urine Appearance Cloudy (CLEAR) 03/23/21 17:30 Urine pH 5 (5-7) 03/23/21 17:30 Ur Specific Gravit y 1.010 (1.005-1.0 30) 03/23/21 17:30 Urine Protein Neg (Negative) 03/23/21 17:30 Urine Glucose (UA) 4+ (Normal) H 03/23/21 17:30 Urine Ketones 2+ (Negative) H 03/23/21 17:30 Urine Blood Neg (Negative) 03/23/21 17:30 Urine Nitrate Positive (Negati ve) H 03/23/21 17:30 Urine Bilirubin Neg (Negative) 03/23/21 17:30 Urine Urobilinogen Norm mg/dL (Negat john) 03/23/21 17:30 Ur Leukocyte Shavon ase Negative (Negati ve) 03/23/21 17:30 Urine RBC None /hpf (0-2) 03/23/21 17:30 Urine WBC 10-15 /hpf (0-5) H 03/23/21 17:30 Ur Squamous Epith Cells 0-4 /hpf (0-5) H 03/23/21 17:30 Amorphous Sediment Not Reportable 03/23/21 17:30 Urine Bacteria 1+ /hpf (NONE) H 03/23/21 17:30 Urine Yeast 3+ /hpf H 03/23/21 17:30 Nasal/Oral COVID-1 9 PCR Detected H 03/23/21 09:57 Hepatitis A IgM Ab Non-reactive (No nreactive) 03/23/21 07:43 Hep Bs Antigen Non-reactive (No nreactive) 03/23/21 07:43 Hep B Core IgM Ab Non-reactive (No nreactive) 03/23/21 07:43 Hepatitis C Antibo dy Non-reactive (No nreactive) 03/23/21 07:43 SARS-CoV-2 Ag (Rap id) Negative (Negati ve) 03/23/21 07:51 [facility] Re[facility] See comment 04/01/21 14:58 Impressions Chest CTA 03/23/21 12:25 IMPRESSION: 1. No evidence of pulmonary embolus considering limitations. Distal pulmonary arteries not well evaluated due to breathing artifact and body habitus. 2. Shallow inspiration. Diffuse hazy bilateral groundglass infiltrates compatible with COVID19 pneumonia. 3. No mediastinal or hilar lymphadenopathy. 4. Partially evaluated diffuse heterogeneity throughout the right hepatic lobe. This is indeterminant and recommend contrast-enhanced CT abdomen pelvis or ultrasound in further evaluation. Metastatic disease not excluded. Notified Isrrael Noble MD at 03/23/2021 4:12 PM. Abdomen Ultrasound 03/24/21 04:00 IMPRESSION: Technically difficult examination 1. Hepatomegaly with diffuse fatty infiltration. 2. Diffuse hepatic heterogeneity not well evaluated due to body habitus. Recommend further evaluation with contrast-enhanced CT abdomen pelvis liver protocol. 3. Echogenic lesion measuring 2.8 x 2.5 x 2.8 cm with suspicious thin hypoechoic halo. Differential considerations include cavernous hemangioma versus metastatic disease or liver neoplasm. Recommend further evaluation of the liver with contrast-enhanced CT abdomen pelvis with liver protocol. 4. Normal gallbladder and common bile duct. 5. No hydronephrosis in right kidney. Chest X-Ray 04/13/21 07:00 IMPRESSION: Persistent bilateral airspace opacities. Volumes. Chest CT 04/21/21 08:42 IMPRESSION: 1. Diffuse hazy bilateral groundglass infiltrates similar in appearance to the prior examination and slightly improved. 2. No focal pneumonia or significant pleural fluid. 3. No mediastinal or hilar lymphadenopathy. 4. Diffuse heterogeneity in the right hepatic lobe nonspecific appears unchanged. Metastatic disease not excluded as previously described. This could be further evaluated with contrast-enhanced CT abdomen pelvis. Microbiology 04/18/21 12:41 Sputum - Expectorated Sputum Gram Stain - Final 04/18/21 12:41 Sputum - Expectorated Sputum Sputum Culture - Final Pseudomonas aeruginosa 04/01/21 14:58 Urine Catheterized Urine Culture - Final Gaby albicans 03/31/21 12:28 Blood Blood Culture - Final NO GROWTH AFTER 5 DAYS 03/31/21 12:25 Blood Blood Culture - Final NO GROWTH AFTER 5 DAYS 03/23/21 07:50 Blood Blood Culture - Final NO GROWTH AFTER 5 DAYS 03/23/21 07:43 Blood Blood Culture - Final NO GROWTH AFTER 5 DAYS 03/23/21 17:30 Urine,Clean Catch Urine Culture - Final Klebsiella oxytoca 03/23/21 17:25 Nose MRSA Culture - Final 03/23/21 17:30 Urine,Clean Catch Bacterial Antigens - Final Vitals: Last Vital Signs Temp 98.1 F 04/21/21 11:40 Pulse 100 04/21/21 11:40 Resp 22 H 04/21/21 11:40 BP 128/75 04/21/21 11:40 Pulse Ox 89 L 04/21/21 11:40 TS Medications Medications Home Medications aspirin 81 mg tablet,delayed release 81 mg PO BEDTIME tab 09/11/19 [History Confirmed 03/23/21] insulin aspart U-100 100 unit/mL (3 mL) subcutaneous pen See Rx Instructions SUBCUT .COMPLEX #90 ml MDD 210 12/10/19 [Rx Confirmed 03/23/21] blood sugar diagnostic #100 each 03/18/20 [Rx Confirmed 03/23/21] blood-glucose meter #1 each 03/18/20 [Rx Confirmed 03/23/21] insulin detemir U-100 100 unit/mL (3 mL) subcutaneous pen 120 unit SUBCUT BID 30 Days #75 ml 03/18/20 [Rx Confirmed 03/23/21] pen needle, diabetic 30 gauge x 16 #100 each 11/29/20 [Rx Confirmed 03/23/21] Bupivacaine 10.66mg/Ml See Rx Instructions .ROUTE .COMPLEX 03/23/21 [History Confirmed 03/23/21] Morphine 8mg/8ml Con See Rx Instructions .ROUTE .COMPLEX 03/23/21 [History Confirmed 03/23/21] ProAir HFA 1 puff INHALATION Q6H PRN 03/23/21 [History Confirmed 03/23/21] acetaminophen [Tylenol Extra Strength] 1,000 mg PO PRN 03/23/21 [History Confirmed 03/23/21] atenolol 25 mg PO QAM 03/23/21 [History Confirmed 03/23/21] atorvastatin 20 mg PO BEDTIME 03/23/21 [History Confirmed 03/23/21] baclofen 10 mg PO TID 03/23/21 [History Confirmed 03/23/21] cetirizine 10 mg PO DAILY 03/23/21 [History Confirmed 03/23/21] duloxetine 40 mg PO DAILY 03/23/21 [History Confirmed 03/23/21] fluticasone propionate [Flovent HFA] 2 puff INHALATION Q12H 03/23/21 [History Confirmed 03/23/21] furosemide 20 mg PO DAILY PRN 03/23/21 [History Confirmed 03/23/21] ibuprofen 600 mg PO PRN 03/23/21 [History Confirmed 03/23/21] lisinopril 40 mg PO BEDTIME 03/23/21 [History Confirmed 03/23/21] omeprazole 40 mg PO BEDTIME 03/23/21 [History Confirmed 03/23/21] ondansetron HCl 8 mg PO Q8H PRN 03/23/21 [History Confirmed 03/23/21] polyethylene glycol 3350 17 g PO DAILY PRN 03/23/21 [History Confirmed 03/23/21] Active Medications Acetaminophen (Acetaminophen 325 Mg Tablet) 650 mg PO Q6H PRN PRN Reason: MILD PAIN Last Admin: 04/21/21 10:59 Dose: 650 mg Documented by: Albuterol Sulfate (Albuterol 8 Gm Mdi) 1 puff INHALATION Q6H.RESPIRATORY TOÑITO Last Admin: 04/21/21 10:14 Dose: Not Given Documented by: Albuterol Sulfate (Albuterol 2.5 Mg/0.5 Ml Neb) 2.5 mg INHALATION Q4H.RESPIRATORY PRN PRN Reason: SHORTNESS OF BREATH Albuterol/Ipratropium (Ipratropium-Albuterol 3 Ml Neb) 3 ml INHALATION Q6H.RESPIRATORY TOÑITO Last Admin: 04/21/21 08:52 Dose: 3 ml Documented by: Amoxicillin/Clavulanate Potassium (Amoxicillin-Clav 500-125 Mg Tablet) 1 tab PO TID TOÑITO; Protocol Stop: 04/25/21 09:14 Last Admin: 04/21/21 07:54 Dose: 1 tab Documented by: Apixaban (Apixaban 5 Mg Tablet) 2.5 mg PO BID@0900,2100 [facility] Last Admin: 04/21/21 07:55 Dose: 2.5 mg Documented by: Aspirin (Aspirin 81 Mg Ec Tablet) 81 mg PO BEDTIME TOÑITO Last Admin: 04/20/21 20:58 Dose: 81 mg Documented by: Atenolol (Atenolol 50 Mg Tablet) 25 mg PO QAM TOÑITO Last Admin: 04/21/21 06:49 Dose: 25 mg Documented by: Atorvastatin Calcium (Atorvastatin 40 Mg Tablet) 20 mg PO BEDTIME TOÑITO Last Admin: 04/20/21 20:58 Dose: 20 mg Documented by: Benzonatate (Benzonatate 100 Mg Capsule) 100 mg PO TID [facility] Last Admin: 04/21/21 07:55 Dose: 100 mg Documented by: Budesonide (Budesonide 0.5 Mg/2 Ml Neb) 0.5 mg INHALATION BID.RESPIRATORY TOÑITO Last Admin: 04/21/21 08:51 Dose: 0.5 mg Documented by: Cetirizine HCl (Cetirizine 10 Mg Tablet) 10 mg PO DAILY [facility] Last Admin: 04/21/21 07:55 Dose: 10 mg Documented by: Clonazepam (Clonazepam 0.5 Mg Tablet) 0.25 mg PO Q8H PRN PRN Reason: ANXIETY Last Admin: 04/21/21 10:59 Dose: 0.25 mg Documented by: Dextrose (Dextrose 50% Syringe 50 Ml) 25 ml IVP ONCE PRN; Protocol PRN Reason: hypoglycemia protocol Dextrose (Dextrose 50% Syringe 50 Ml) 50 ml IVP PRN PRN; Protocol PRN Reason: hypoglycemia protocol Docusate Sodium (Docusate Sodium 100 Mg Capsule) 100 mg PO BID [facility] Last Admin: 04/21/21 10:56 Dose: 100 mg Documented by: Donepezil HCl (Donepezil 5 Mg Tablet) 10 mg PO BEDTIME [facility] Last Admin: 04/20/21 20:58 Dose: 10 mg Documented by: Duloxetine HCl (Duloxetine 20 Mg Capsule) 40 mg PO DAILY [facility] Last Admin: 04/21/21 07:55 Dose: 40 mg Documented by: Ferrous Gluconate (Ferrous Gluconate 324 Mg Tablet) 324 mg PO BIDWM [facility] Last Admin: 04/21/21 07:55 Dose: 324 mg Documented by: Fluconazole (Fluconazole 100 Mg Tablet) 100 mg PO DAILY [facility] Stop: 04/27/21 09:14 Last Admin: 04/21/21 07:54 Dose: 100 mg Documented by: Glucagon (Glucagon 1 Mg/Ml Inj 1 Ml) 1 mg IM ONCE PRN; Protocol PRN Reason: Adult Acute Hypoglycemia Prot. Dextrose (D5w) 500 mls @ 100 mls/hr IV ONCE PRN; Protocol PRN Reason: Adult Acute Hypoglycemia Prot Insulin Aspart (Insulin Aspart 100 Unit/1 Ml) 0 unit SUBCUT WM&BEDTIME [facility]; Protocol Last Admin: 04/21/21 10:57 Dose: 16 unit Documented by: Insulin Aspart (Insulin Aspart 100 Unit/1 Ml) 25 unit SUBCUT TIDAC [facility] Last Admin: 04/21/21 10:56 Dose: 25 unit Documented by: Insulin Detemir (Insulin Detemir 100 Units/1 Ml) 120 unit SUBCUT BID@0900,2100 [facility] Last Admin: 04/21/21 07:57 Dose: 120 unit Documented by: Lanolin (Lanolin Oint 7 Gm) 1 applic TOPICAL PRN PRN PRN Reason: DRYNESS Last Admin: 04/14/21 00:45 Dose: 1 applic Documented by: Levofloxacin (Levofloxacin 500 Mg Tablet) 500 mg PO DAILY@0600 [facility]; Protocol Stop: 04/28/21 05:59 Last Admin: 04/21/21 06:48 Dose: 500 mg Documented by: Naphazoline HCl/Pheniramine Maleate (Naphazoline/Pheniramine Op Soln 15 Ml Btl) 1 drop EYE-BOTH QID PRN PRN Reason: ALLERGIES Last Admin: 04/19/21 22:27 Dose: 1 drop Documented by: Ondansetron HCl (Ondansetron 2 Mg/Ml Sdv 2 Ml) 4 mg IVP Q6H PRN PRN Reason: NAUSEA AND VOMITING Last Admin: 03/28/21 11:59 Dose: 4 mg Documented by: Pantoprazole Sodium (Pantoprazole Dr 40 Mg Tablet) 40 mg PO BEDTIME [facility] Last Admin: 04/20/21 20:58 Dose: 40 mg Documented by: Polyethylene Glycol (Polyethylene Glycol 3350 Pkt 17 Gm) 17 gm PO DAILY [facility] Last Admin: 04/21/21 07:56 Dose: 17 gm Documented by: Tramadol HCl (Tramadol 50 Mg Tablet) 50 mg PO Q6H PRN PRN Reason: MODERATE PAIN Last Admin: 04/20/21 21:47 Dose: 50 mg Documented by: Discharge Plan Discharge Patient Disposition: Home Condition: Stable Prescriptions: No Action aspirin 81 mg tablet,delayed release (DR/EC) 81 mg PO BEDTIME RF: 0 (DME) blood-glucose meter [Blood Glucose Monitoring] Kit See Rx Instructions .ROUTE .MEDSUPPLY Qty: 1 RF: 0 (DME) Blood Glucose Test Strip See Rx Instructions .ROUTE .MEDSUPPLY Qty: 100 RF: 1 Levemir FlexTouch U-100 Insuln 100 unit/mL (3 mL) insulin pen 120 unit SUBCUT BID 30 Days Qty: 75 RF: 3 insulin aspart U-100 [Novolog Flexpen U-100 Insulin] 100 unit/mL (3 mL) insulin pen See Rx Instructions SUBCUT .COMPLEX MDD 210 Qty: 90 RF: 2 (DME) Easy Touch Pen Needle 30 gauge x 5/16 needle See Rx Instructions .ROUTE .MEDSUPPLY Qty: 100 RF: 11 atorvastatin 20 mg tablet 20 mg PO BEDTIME RF: 0 cetirizine 10 mg tablet 10 mg PO DAILY RF: 0 atenolol 25 mg tablet 25 mg PO QAM RF: 0 ProAir HFA 90 mcg/actuation HFA aerosol inhaler 1 puff INHALATION Q6H PRN (Reason: shortness of breath or wheezing) RF: 0 lisinopril 40 mg tablet 40 mg PO BEDTIME RF: 0 Tylenol Extra Strength 500 mg Tablet 1,000 mg PO PRN RF: 0 baclofen 10 mg tablet 10 mg PO TID RF: 0 ibuprofen 200 mg Tablet 600 mg PO PRN RF: 0 Flovent HFA 220 mcg/actuation HFA aerosol inhaler 2 puff INHALATION Q12H RF: 0 furosemide 20 mg tablet 20 mg PO DAILY PRN (Reason: Edema) RF: 0 polyethylene glycol 3350 17 gram/dose powder 17 g PO DAILY PRN (Reason: Constipation) RF: 0 duloxetine 40 mg capsule,delayed release(DR/EC) 40 mg PO DAILY RF: 0 ondansetron HCl 8 mg tablet 8 mg PO Q8H PRN (Reason: Nausea And Vomiting) RF: 0 omeprazole 20 mg capsule,delayed release(DR/EC) 40 mg PO BEDTIME RF: 0 Bupivacaine 10.66mg/Ml See Rx Instructions .ROUTE .COMPLEX RF: 0 Morphine 8mg/8ml Con See Rx Instructions .ROUTE .COMPLEX RF: 0 Discharge Orders: Transfer Out of Facility (Order); Ordered 04/21/21 Ordered By: Tano Kaur Referrals: Sujatha Giles MD [Primary Care Provider] - Patient Instructions: Opioid Safety Transfer Attestations Time Spent in Transfer Care*: greater than 30 min Specific Discharge Activities: Specific discharge activities: educating patient, educating and/or supporting family/caregiver, discussing with pcp/other providers, discussing with telehealth case manager/social workers/dc planners, documenting/other paperwork and evaluating patient/reviewing data Status at Transfer: Cognitive status at transfer: cognitively intact , Behavioral status at transfer: cooperative , Functional status at transfer: other assisted ambulation Overall status at transfer: patient is not back to baseline Quality Metrics Clinical Quality Measures: During this hospital stay, did patient experience: None Coding Level of Care Code Acute Panel Beater for [facility] Fwd Diagnoses ARDS (adult respiratory distress syndrome) J80 Pseudomonas pneumonia J15.1 COVID-19 U07.1 Controlled diabetes mellitus type 1 without complications E10.9 Essential (primary) hypertension I10 Morbid obesity with BMI of 45.0-49.9, adult E66.01; Z68.42 Asthma J45.20 Asthma severity: mild Asthma persistence: intermittent Asthma complication type: uncomplicated
[2021-04-21 16:49] LABS: Glucose Point of Care 355 mg/dL (70-110)
[2021-04-21] MEDS: aspirin 81 mg EC Tablet PO (21:31)
[2021-04-21] MEDS: atorvastatin 40 mg Tablet 20 MG PO (21:31)
[2021-04-21 21:33] LABS: Glucose Point of Care 319 mg/dL (70-110)
[2021-04-21] MEDS: donepezil 5 MG Tablet 10 MG PO (21:34)
[2021-04-21] MEDS: pantoprazole DR 40 mg Tablet PO (21:34)
[2021-04-22] VITALS (19 sets, daily range): BP systolic 124–140; BP diastolic 55–102; PULSE 91–114; RESP 16–22; TEMP 36.3–36.8; O2SAT 88–96
[2021-04-22] MEDS: ipratropium-albuterol 3 mL Neb INHALATION ×4 (02:34→20:57)
[2021-04-22] MEDS: albuterol 8 gm MDI 1 PUFF INHALATION (02:34)
[2021-04-22] MEDS: atenolol 50 mg Tablet 25 MG PO (05:23)
[2021-04-22] MEDS: levoFLOXacin 500 mg Tablet PO (05:24)
[2021-04-22 06:42] LABS: Glucose Point of Care 275 mg/dL (70-110)
[2021-04-22 06:57] LABS: Basophils % 0.5 %; Eosinophils # 0.5 10^3/uL (0.0-0.8); Eosinophils % 5.8 %; Hematocrit 42.7 % (37.0-47.0); Lymphocytes # 2.1 10^3/uL (0.8-4.8); Lymphocytes % 24.5 %; Mean Corpuscular HGB Conc 30.4 g/dL (30.0-36.0); Mean Corpuscular Hemoglobin 26.1 pg (28.0-34.0); Mean Corpuscular Volume 85.7 fl (81-99); Mean Platelet Volume 11.5 fL (7.4-10.4); Monocytes # 0.8 10^3/uL (0.2-0.9); Monocytes % 9.1 %; Neutrophils # 4.97 10^3/uL (1.8-7.7); Nucleated Red Blood Cells % 0 %; Platelet Count 157 10^3/cmm (130-400); Red Blood Count 4.98 10^6/uL (4.1-5.3); Red Cell Distribution Width 20.8 % (12.1-15.1); White Blood Count 8.4 10^3/uL (4.0-10.0)
[2021-04-22 07:15] LABS: D Dimer 0.45 ug/mIFEU (0-0.59)
[2021-04-22 07:24] LABS: C Reactive Protein 57.8 mg/L (0.0-4.9)
[2021-04-22 07:32] LABS: Alanine Aminotransferase 119 U/L (0-33); Alkaline Phosphatase 204 IU/L (35-105); Anion Gap 15.1 (5-19); Aspartate Amino Transferase 50 U/L (0-32); Blood Urea Nitrogen 6 mg/dL (6-20); Calcium 8.9 mg/dL (8.5-10.5); Carbon Dioxide 28 mmol/L (22-29); Chloride 97 mmol/L (98-107); Globulin 3.4 g/dL (1.3-4.6); Glomerular Filtration Rate 176.8 mL/min (90-130); Glucose 270 mg/dL (65-115); Osmolality Calculated 289 mOsm/kg (285-295); Potassium 4.1 mmol/L (3.5-5.1); Sodium 136 mmol/L (136-145); Total Bilirubin 0.7 mg/dL (0.15-1.2); Total Protein 6.4 g/dL (6.6-8.7)
[2021-04-22] MEDS: budesonide 0.5 mg/2 mL Neb INHALATION ×2 (08:32→20:57)
[2021-04-22] MEDS: polyethylene glycol 3350 Pkt 17 gm PO (09:08)
[2021-04-22] MEDS: cetirizine 10 mg Tablet PO (09:09)
[2021-04-22] MEDS: fluconazole 100 mg Tablet PO (09:09)
[2021-04-22] MEDS: docusate sodium 100 mg Capsule PO ×2 (09:09→17:46)
[2021-04-22] MEDS: ferrous gluconate 324 mg Tablet PO ×2 (09:09→17:46)
[2021-04-22] MEDS: duloxetine 20 mg Capsule 40 MG PO (09:09)
[2021-04-22] MEDS: amoxicillin-clav 500-125 mg Tablet 1 TAB PO ×3 (09:09→21:36)
[2021-04-22] MEDS: apixaban 5 mg Tablet 2.5 MG PO ×2 (09:09→21:36)
[2021-04-22] MEDS: benzonatate 100 mg Capsule PO ×3 (09:10→21:36)
[2021-04-22] MEDS: FUROsemide 10 mg/mL SDV 2mL 20 MG IVP (10:49)
--- NOTE | 2021-04-22 11:02 | P.PN_ITS ---
Subjective Subjective: Interval history: No complaints overnight. Unfortunately patient could not be transferred to LTAC yesterday she was declined given her pain pump. On examination today patient is alert tired patchy could not be transferred as she is looking forward to pulmonary rehab. She denies any nausea, vomiting, headache. On examination sitting on bedside trying to do her leg exercises. Working well with incentive spirometry and flutter valve. Currently on 40 L 40% saturating 96%. During the day transition to 30 L high flow nasal cannula. Denies any nausea, vomiting, headache. Concerned about fluid restriction. Medications: Reviewed: Yes Vitals/I&O/Wt Last Vital Signs Temp 97.3 F L 04/22/21 08:00 Pulse 96 04/22/21 08:35 Resp 18 04/22/21 08:35 BP 135/55 04/22/21 08:00 Pulse Ox 90 04/22/21 08:35 04/21/21 04/22/21 04/22/21 22:59 06:59 14:59 Intake Total 240 / 960 240 / 240 Balance 240 / 960 240 / 240 Weight last 48 hrs Weight 143.653 kg Weight 147.418 kg Physical Exam Narrative: EXAM NARRATIVE: General: No acute distress, AO x3, morbidly obese, anxious HEENT: PERRLA, pupils bilaterally equal and reactive, left eye mild ecchymosis present Chest: Normal vesicular breath sounds, no added sounds, equal good air entry bilaterally CVS: S1-S2 regular, no murmurs, no tachycardia, no gallops, no rubs Abdomen: Soft, nontender, no organomegaly, bowel sounds present Neuro: No focal deficits, no facial deformity, AO x3, power 5/5 in all limbs Urinary Catheter Management^: Matthews: Cath Placed During This Visit: yes, but has since been removed by the nurse Reason for Continuing Indwelling Catheter: Decision to DC Catheter Urinary Catheter Date of Insertion: 03/23/21 Urinary Catheter Time of Insertion: 16:47 Date Urinary Catheter Removed: 04/02/21 Time Urinary Catheter Discontinued: 16:00 Data : 04/22/21 06:10 04/22/21 06:10 A&P Assessment and plan (1) ARDS (adult respiratory distress syndrome): Status: Acute (2) Pseudomonas pneumonia: Status: Acute (3) COVID-19: Status: Acute (4) Controlled diabetes mellitus type 1 without complications: Status: Chronic (5) Essential (primary) hypertension: Status: Chronic (6) Morbid obesity with BMI of 45.0-49.9, adult: Status: Acute (7) Asthma: Continue pulmonary toilet Status: Chronic Qualifiers: Asthma complication type: uncomplicated Asthma persistence: intermittent Asthma severity: mild Qualified Code(s): J45.20 - Mild inte rmittent asthma, uncomplicated Additional A&P Information Hypoxia secondary to COVID-19 pneumonia: Moderate to severe disease. Prolonged hospitalization. Oxygen supplementation keeping saturation over 88%. ABG in a.m. It has finished a course of 10 days of dexamethasone and 5 days of remdesivir. Post 1 dose Actemra on March 23. Vitamin C, zinc. Continue with DuoNebs, budesonide. Pulmonary toilet with incentive spirometry flutter valve. We will monitor inflammatory markers including ferritin, ESR, CRP, D-dimer, fibrinogen. For now inflammatory markers have been trended down and has normalized. D-dimer normal. Continue with Eliquis 2.5 mg twice daily. Monitor for anemia or bleeding. Procalcitonin negative, leukocytosis has resolved. Sputum culture positive for Pseudomonas. Continue with Augmentin and Levaquin for now. Overall 7-day course. Patient has already had imipenem up to April 05 and prior to that Zosyn till March 30. Continue with fluconazole orally for 7-day course for Gaby albicans in urine. Echocardiogram done earlier in the admission shows an EF of 60%, no pericardial effusion. Given hypoxia will try to keep patient as negative as possible. IV Lasix 20 mg stat. Patient net negative since admission though there seems to be a discrepancy in output charting. Strict input output charting, daily weights. Anxiety Continue home dose of Cymbalta every morning, donepezil nightly. Continue PRN klonopin Diabetes 1 mellitus: HbA1c 12.9. Blood sugar still elevated. Increase NovoLog 35 units 3 times daily, continue with insulin sliding scale high-dose protocol. Long-acting 120 mg subcu b.i.d. Continue to adjust insulin as needed Transaminitis. Hepatitis panel negative. Abdominal ultrasound demonstrates likely cyst. AFP without significant elevation Labs stable Klebsiella UTI Status post treatment. Chronic pain syndrome Pain pump Ultra added Full code Eliquis 2.5 mg twice daily for DVT prophylaxis. Protonix for PUD prophylaxis. Discharge planning: We did discuss that unfortunately patient has been over here for more than 28 days and she is still requiring high oxygen supplementation even though she continues to do well with incentive spirometry and flutter valve. We also discussed that going forward what she needs is good pulmonary rehabilitation which unfortunately we do not have at [facility] for which she should be transferred to LTAC when possible. Patient verbalized understanding and now has agreed for the same. [facility] [place] declined patient because of use of pain pump. We will continue to wean oxygen supplementation down while referral has been sent out to other LTAC for extensive pulmonary rehab. Discharge planning for now LTAC versus home depending on availability and oxygen requirements. Case management has been alerted. Attestations Medical Necessity Statement*: Requires further hospitalization for management of hypoxia secondary COVID-19 pneumonia as patient is still requiring high oxygen supplementation. Time Spent in Patient Care: Greater than 35 minutes (>than 50% of time spent in counselling and/or direct pt care on unit) . Coding Level of Care Code Acute Neurourologist for [facility] Diagnoses ARDS (adult respiratory distress syndrome) J80 Pseudomonas pneumonia J15.1 COVID-19 U07.1 Controlled diabetes mellitus type 1 without complications E10.9 Essential (primary) hypertension I10 Morbid obesity with BMI of 45.0-49.9, adult E66.01; Z68.42 Asthma J45.20 Asthma complication type: uncomplicated Asthma persistence: intermittent Asthma severity: mild
[2021-04-22] MEDS: acetaminophen 325 mg Tablet 650 MG PO (12:38)
[2021-04-22] MEDS: CLONazepam 0.5 mg Tablet 0.25 MG PO (12:39)
[2021-04-22 14:44] LABS: Glucose Point of Care 236 mg/dL (70-110)
[2021-04-22 17:14] LABS: Glucose Point of Care 305 mg/dL (70-110)
[2021-04-22] MEDS: ondansetron 2 mg/ML SDV 2 mL 4 MG IVP (17:46)
[2021-04-22 20:03] LABS: Glucose Point of Care 302 mg/dL (70-110)
[2021-04-22] MEDS: donepezil 5 MG Tablet 10 MG PO (21:36)
[2021-04-22] MEDS: pantoprazole DR 40 mg Tablet PO (21:37)
[2021-04-22] MEDS: aspirin 81 mg EC Tablet PO (21:42)
[2021-04-22] MEDS: atorvastatin 40 mg Tablet 20 MG PO (21:43)
--- NOTE | 2021-04-22 23:12 | PC.NURSE ---
Patient transferred to room 258. All belongings with patient. Patient on non rebreather for transfer. Respiratory therapy at bedside with patients bipap. Patient actually on 13liters nc. Report given to receiving nurse.
[2021-04-23] VITALS (14 sets, daily range): BP systolic 111–145; BP diastolic 67–85; PULSE 89–122; RESP 18–20; TEMP 36.4–36.7; O2SAT 87–100
[2021-04-23] MEDS: ipratropium-albuterol 3 mL Neb INHALATION ×4 (02:20→21:05)
[2021-04-23] MEDS: acetaminophen 325 mg Tablet 650 MG PO (02:34)
[2021-04-23 05:54] LABS: C Reactive Protein 65.7 mg/L (0.0-4.9)
[2021-04-23] MEDS: atenolol 50 mg Tablet 25 MG PO (06:14)
[2021-04-23] MEDS: levoFLOXacin 500 mg Tablet PO (06:14)
[2021-04-23 06:44] LABS: Glucose Point of Care 286 mg/dL (70-110)
[2021-04-23 07:09] LABS: Erythrocyte Sedimentation Rate 43 mm/hr (0-15)
[2021-04-23] MEDS: polyethylene glycol 3350 Pkt 17 gm PO (07:57)
[2021-04-23] MEDS: ferrous gluconate 324 mg Tablet PO ×2 (07:58→18:15)
[2021-04-23] MEDS: duloxetine 20 mg Capsule 40 MG PO (07:58)
[2021-04-23] MEDS: fluconazole 100 mg Tablet PO (07:58)
[2021-04-23] MEDS: apixaban 5 mg Tablet 2.5 MG PO ×2 (07:58→20:34)
[2021-04-23] MEDS: cetirizine 10 mg Tablet PO (07:59)
[2021-04-23] MEDS: docusate sodium 100 mg Capsule PO ×2 (07:59→18:15)
[2021-04-23] MEDS: amoxicillin-clav 500-125 mg Tablet 1 TAB PO ×3 (07:59→20:33)
[2021-04-23] MEDS: benzonatate 100 mg Capsule PO ×3 (07:59→20:34)
[2021-04-23] MEDS: budesonide 0.5 mg/2 mL Neb INHALATION ×2 (08:15→21:05)
[2021-04-23] MEDS: FUROsemide 10 mg/mL SDV 4mL 40 MG IVP (11:55)
[2021-04-23 12:53] LABS: Glucose Point of Care 334 mg/dL (70-110)
--- NOTE | 2021-04-23 16:31 | P.PN_ITS ---
Subjective Subjective: Interval history: Last 24 hours patient was transferred over from [facility] unit to [facility]. Off isolation precautions. Currently on 13 L high flow nasal cannula saturating 88 to 89%. On examination today sitting up in bed. Working well with incentive spirometry, flutter valve, physical therapy. States she is feeling little tired today. Excited to meet her family. Mildly emotional today. Medications: Reviewed: Yes Vitals/I&O/Wt Last Vital Signs Temp 97.7 F 04/23/21 12:00 Pulse 89 04/23/21 14:34 Resp 18 04/23/21 14:31 BP 145/85 04/23/21 12:00 Pulse Ox 88 L 04/23/21 14:31 04/23/21 04/23/21 04/23/21 06:59 14:59 22:59 Output Total 700 / 700 Balance -700 / 20 Weight last 48 hrs Weight 145.348 kg Weight 143.653 kg Physical Exam Narrative: EXAM NARRATIVE: General: No acute distress, AO x3, morbidly obese, anxious HEENT: PERRLA, pupils bilaterally equal and reactive, left eye mild ecchymosis present Chest: Normal vesicular breath sounds, no added sounds, equal good air entry bilaterally CVS: S1-S2 regular, no murmurs, no tachycardia, no gallops, no rubs Abdomen: Soft, nontender, no organomegaly, bowel sounds present Neuro: No focal deficits, no facial deformity, AO x3, power 5/5 in all limbs Urinary Catheter Management^: Matthews: Cath Placed During This Visit: yes, but has since been removed by the nurse Reason for Continuing Indwelling Catheter: Decision to DC Catheter Urinary Catheter Date of Insertion: 03/23/21 Urinary Catheter Time of Insertion: 16:47 Date Urinary Catheter Removed: 04/02/21 Time Urinary Catheter Discontinued: 16:00 Data : 04/22/21 06:10 04/22/21 06:10 Micro: Microbiology 04/23/21 06:33 Legionella Urinary Antigen - Final Urine,Voided A&P Assessment and plan (1) ARDS (adult respiratory distress syndrome): Status: Acute (2) Pseudomonas pneumonia: Status: Acute (3) COVID-19: Status: Acute (4) Controlled diabetes mellitus type 1 without complications: Status: Chronic (5) Essential (primary) hypertension: Status: Chronic (6) Morbid obesity with BMI of 45.0-49.9, adult: Status: Acute (7) Asthma: Continue pulmonary toilet Status: Chronic Qualifiers: Asthma severity: mild Asthma persistence: intermittent Asthma complication type: uncomplicated Qualified Code(s): J45.20 - Mild intermittent asthma, uncomplicated Additional A&P Information Hypoxia secondary to COVID-19 pneumonia and Pseudomonas pneumonia: Prolonged hospitalization. Off isolation precautions. Oxygen supplementation keeping saturation over 88%. ABG in a.m. It has finished a course of 10 days of dexamethasone and 5 days of remdesivir. Post 1 dose Actemra on March 23. Vitamin C, zinc. Continue with DuoNebs, budesonide. Pulmonary toilet with incentive spirometry flutter valve. We will monitor inflammatory markers including ferritin, ESR, CRP, D-dimer, fibrinogen. For now inflammatory markers have been trended down and has normalized. D-dimer normal. Continue with Eliquis 2.5 mg twice daily. Monitor for anemia or bleeding. Procalcitonin negative, leukocytosis has resolved. Sputum culture positive for Pseudomonas. Continue with Augmentin and Levaquin for now. Overall 7-day course. Patient has already had imipenem up to April 05 and prior to that Zosyn till March 30. Continue with fluconazole orally for 7-day course for Gaby albicans in urine. Echocardiogram done earlier in the admission shows an EF of 60%, no pericardial effusion. Given hypoxia will try to keep patient as negative as possible. IV Lasix 40 mg stat. Patient net negative since admission though there seems to be a discrepancy in output charting. Strict input output charting, daily weights. Anxiety Continue home dose of Cymbalta every morning, donepezil nightly. Continue PRN klonopin Diabetes 1 mellitus: HbA1c 12.9. Blood sugar still elevated. Increase NovoLog 35 units 3 times daily, continue with insulin sliding scale high-dose protocol. Long-acting 120 mg subcu b.i.d. Continue to adjust insulin as needed Transaminitis. Hepatitis panel negative. Abdominal ultrasound demonstrates likely cyst. AFP without significant elevation Labs stable Klebsiella UTI Status post treatment. Chronic pain syndrome Pain pump Ultram added Full code Eliquis 2.5 mg twice daily for DVT prophylaxis. Protonix for PUD prophylaxis. Discharge planning: Patient has accepted to go to LTAC. Unfortunately was declined at [facility] because of use of pain pump. Case management is looking for other LTAC. Patient requires LTAC for further pulmonary rehabilitation which unfortunately we do not have at our hospital. Patient has had a prolonged hospitalization and most likely will need further prolonged care because of requiring high oxygen supplementation. Attestations Medical Necessity Statement*: Requires further hospitalization for further man agement of hypoxia secondary COVID-19 pneumonia and superadded Pseudomonas pneumonia while patient is still on high flow nasal cannula oxygen supplementation, hyperglycemia Time Spent in Patient Care: Greater than 35 minutes (>than 50% of time spent in counselling and/or direct pt care on unit) . Coding Level of Care Code Acute Route Salesman And Driver for [facility] Fwd Diagnoses ARDS (adult respiratory distress syndrome) J80 Pseudomonas pneumonia J15.1 COVID-19 U07.1 Controlled diabetes mellitus type 1 without complications E10.9 Essential (primary) hypertension I10 Morbid obesity with BMI of 45.0-49.9, adult E66.01; Z68.42 Asthma J45.20 Asthma severity: mild Asthma persistence: intermittent Asthma complication type: uncomplicated
[2021-04-23 16:38] LABS: Glucose Point of Care 296 mg/dL (70-110)
[2021-04-23 18:04] LABS: Glucose Point of Care 259 mg/dL (70-110)
[2021-04-23 20:27] LABS: Glucose Point of Care 344 mg/dL (70-110)
[2021-04-23] MEDS: aspirin 81 mg EC Tablet PO (20:33)
[2021-04-23] MEDS: donepezil 5 MG Tablet 10 MG PO (20:33)
[2021-04-23] MEDS: atorvastatin 40 mg Tablet 20 MG PO (20:33)
[2021-04-23] MEDS: pantoprazole DR 40 mg Tablet PO (20:34)
[2021-04-24] VITALS (19 sets, daily range): BP systolic 114–146; BP diastolic 71–88; PULSE 92–119; RESP 16–24; TEMP 36.4–37; O2SAT 87–94
--- NOTE | 2021-04-24 00:28 | PC.NURSE ---
during midnight rounds patient laying on right side, resp shallow, no resp distress noted, awakened and 02 sat 82% with 02 per nasal cannula at 13 lpm, patient verbalized having increased short of breath all day, attributing to fatigue due to increased movement yesterday, having bed bath, moving from one floor to another. patient refused Bipap, stated i cannot stand it, I feel closed in and I just want to claw at my face , patient also declined mask for oxygen, stated I can only handle it for a few minutes then I have to have it off my face , patient stated that respiratory has been in earlier and gave patient neb treatment. patient encouraged to increase head elevation of bed and patient agreeable.
[2021-04-24] MEDS: acetaminophen 325 mg Tablet 650 MG PO ×2 (02:00→09:09)
[2021-04-24] MEDS: ipratropium-albuterol 3 mL Neb INHALATION ×4 (03:09→20:30)
[2021-04-24] MEDS: atenolol 50 mg Tablet 25 MG PO (05:26)
[2021-04-24] MEDS: levoFLOXacin 500 mg Tablet PO (05:26)
--- NOTE | 2021-04-24 06:02 | PC.NURSE ---
shift note patient alert and oriented, awake most of this shift, search done throughout the chart and found that Dr. Kaur cancelled fluid restriction back in 04/20/2021
[2021-04-24 06:04] LABS: Basophils % 0.5 %; Eosinophils # 0.5 10^3/uL (0.0-0.8); Eosinophils % 5.8 %; Hematocrit 41.5 % (37.0-47.0); Hemoglobin 12.6 g/dL (11.5-15.3); Lymphocytes # 2.4 10^3/uL (0.8-4.8); Lymphocytes % 27.4 %; Mean Corpuscular HGB Conc 30.4 g/dL (30.0-36.0); Mean Corpuscular Volume 85.6 fl (81-99); Mean Platelet Volume 11.2 fL (7.4-10.4); Monocytes % 11.8 %; Neutrophils # 4.68 10^3/uL (1.8-7.7); Neutrophils % 53.8 %; Nucleated Red Blood Cells % 0 %; Platelet Count 183 10^3/cmm (130-400); Red Blood Count 4.85 10^6/uL (4.1-5.3); Red Cell Distribution Width 20.8 % (12.1-15.1); White Blood Count 8.7 10^3/uL (4.0-10.0)
[2021-04-24 06:22] LABS: Alanine Aminotransferase 90 U/L (0-33); Alkaline Phosphatase 193 IU/L (35-105); Anion Gap 13.9 (5-19); Aspartate Amino Transferase 42 U/L (0-32); Blood Urea Nitrogen 6 mg/dL (6-20); Calcium 8.6 mg/dL (8.5-10.5); Carbon Dioxide 30 mmol/L (22-29); Chloride 96 mmol/L (98-107); Globulin 3.5 g/dL (1.3-4.6); Glomerular Filtration Rate 176.8 mL/min (90-130); Glucose 257 mg/dL (65-115); Osmolality Calculated 288 mOsm/kg (285-295); Potassium 3.9 mmol/L (3.5-5.1); Sodium 136 mmol/L (136-145); Total Bilirubin 0.7 mg/dL (0.15-1.2); Total Protein 6.5 g/dL (6.6-8.7)
[2021-04-24 06:30] LABS: Glucose Point of Care 268 mg/dL (70-110)
[2021-04-24] MEDS: budesonide 0.5 mg/2 mL Neb INHALATION ×2 (08:18→20:30)
[2021-04-24] MEDS: amoxicillin-clav 500-125 mg Tablet 1 TAB PO ×3 (08:53→20:55)
[2021-04-24] MEDS: polyethylene glycol 3350 Pkt 17 gm PO (08:53)
[2021-04-24] MEDS: ferrous gluconate 324 mg Tablet PO ×2 (08:55→17:57)
[2021-04-24] MEDS: cetirizine 10 mg Tablet PO (08:55)
[2021-04-24] MEDS: fluconazole 100 mg Tablet PO (08:55)
[2021-04-24] MEDS: benzonatate 100 mg Capsule PO ×3 (08:55→20:55)
[2021-04-24] MEDS: apixaban 5 mg Tablet 2.5 MG PO ×2 (08:55→20:55)
[2021-04-24] MEDS: docusate sodium 100 mg Capsule PO ×2 (08:55→17:57)
[2021-04-24] MEDS: duloxetine 20 mg Capsule 40 MG PO (08:55)
[2021-04-24 10:42] LABS: Glucose Point of Care 388 mg/dL (70-110)
--- NOTE | 2021-04-24 14:20 | P.PN_ITS ---
Subjective Subjective: Interval history: No acute events overnight. Denies any nausea, vomiting, headache. States she feels very stuffy in her nose today with mild body pains as if she is coming down with a viral. Denies any subjective feels a fever. Has remained hemodynamically stable and afebrile. Currently on 12 L high flow nasal cannula saturating 92%. Working well with incentive spirometry and flutter valve. Continues to do well with physical therapy. Medications: Reviewed: Yes Vitals/I&O/Wt Last Vital Signs Temp 97.6 F 04/24/21 12:00 Pulse 92 04/24/21 12:00 Resp 16 04/24/21 12:00 BP 120/75 04/24/21 12:00 Pulse Ox 92 04/24/21 12:00 04/23/21 04/24/21 04/24/21 22:59 06:59 14:59 Intake Total 1200 / 1200 Output Total 2700 / 2700 360 / 3060 1300 / 1300 Balance -2700 / -2700 -360 / -3060 -100 / -100 Weight last 48 hrs Weight 143.653 kg Weight 145.348 kg Physical Exam Narrative: EXAM NARRATIVE: General: No acute distress, AO x3, morbidly obese, anxious HEENT: PERRLA, pupils bilaterally equal and reactive, left eye mild ecchymosis present Chest: Normal vesicular breath sounds, no added sounds, equal good air entry bilaterally CVS: S1-S2 regular, no murmurs, no tachycardia, no gallops, no rubs Abdomen: Soft, nontender, no organomegaly, bowel sounds present Neuro: No focal deficits, no facial deformity, AO x3, power 5/5 in all limbs Urinary Catheter Management^: Matthews: Cath Placed During This Visit: yes, but has since been removed by the nurse Reason for Continuing Indwelling Catheter: Decision to DC Catheter Urinary Catheter Date of Insertion: 03/23/21 Urinary Catheter Time of Insertion: 16:47 Date Urinary Catheter Removed: 04/02/21 Time Urinary Catheter Discontinued: 16:00 Data : 04/24/21 05:17 04/24/21 05:17 Micro: Microbiology 04/23/21 06:33 Legionella Urinary Antigen - Final Urine,Voided A&P Assessment and plan (1) ARDS (adult respiratory distress syndrome): Status: Acute (2) Pseudomonas pneumonia: Status: Acute (3) COVID-19: Status: Acute (4) Controlled diabetes mellitus type 1 without complications: Status: Chronic (5) Essential (primary) hypertension: Status: Chronic (6) Morbid obesity with BMI of 45.0-49.9, adult: Status: Acute (7) Asthma: Continue pulmonary toilet Status: Chronic Qualifiers: Asthma severity: mild Asthma persistence: intermittent Asthma complication type: uncomplicated Qualified Code(s): J45.20 - Mild intermittent asthma, uncomplicated Additional A&P Information Hypoxia secondary to COVID-19 pneumonia and Pseudomonas pneumonia: Prolonged hospitalization. Off isolation precautions. Oxygen supplementation keeping saturation over 88%. It has finished a course of 10 days of dexamethasone and 5 days of remdesivir. Post 1 dose Actemra on March 23. Vitamin C, zinc. Continue with DuoNebs, budesonide. Pulmonary toilet with incentive spirometry flutter valve. We will monitor inflammatory markers including ferritin, ESR, CRP, D-dimer, fibrinogen. For now inflammatory markers have been trended down and has normalized. D-dimer normal. Continue with Eliquis 2.5 mg twice daily. Monitor for anemia or bleeding. Procalcitonin negative, leukocytosis has resolved. Sputum culture positive for Pseudomonas. Continue with Augmentin and Levaquin for now. Overall 7-day course. Patient has already had imipenem up to April 05 and prior to that Zosyn till March 30. Continue with fluconazole orally for 7-day course for Gaby albicans in urine. Echocardiogram done earlier in the admission shows an EF of 60%, no pericardial effusion. Given hypoxia will try to keep patient as negative as possible. Hold off on Lasix for today. Will redose tomorrow as per fluid status. Patient net negative since admission though there seems to be a discrepancy in output charting. Strict input output charting, daily weights. Anxiety Continue home dose of Cymbalta every morning, donepezil nightly. Continue PRN klonopin Diabetes 1 mellitus: HbA1c 12.9. Blood sugar still elevated. Increase NovoLog 35 units 3 times daily, continue with insulin sliding scale high-dose protocol. Long-acting 120 mg subcu b.i.d. Continue to adjust insulin as needed Transaminitis. Hepatitis panel negative. Abdominal ultrasound demonstrates likely cyst. AFP without significant elevation Labs stable Klebsiella UTI Status post treatment. Chronic pain syndrome Pain pump Ultram added Full code Eliquis 2.5 mg twice daily for DVT prophylaxis. Protonix for PUD prophylaxis. Plan for today: Continue with incentive spirometry and flutter valve. Add Flonase. Monitor for any fever, diarrhea. Continue to try to wean off oxygen as possible keeping saturation over 88%. Discharge planning: Patient has accepted to go to LTAC. Unfortunately was declined at [facility] because of use of pain pump. Case management is looking for other LTAC. Patient requires LTAC for further pulmonary rehabilitation which unfortunately we do not have at our hospital. Patient has had a prolonged hospitalization and most likely will need further prolonged care because of requiring high oxygen supplementation. Attestations Medical Necessity Statement*: Requires further hospitalization for management Pseudomonas pneumonia in setting of recent Covid pneumonia Time Spent in Patient Care: Greater than 35 minutes (>than 50% of time spent in counselling and/or direct pt care on unit) . Coding Level of Care Code Acute Web Production Assistant for [facility] Fwd Diagnoses ARDS (adult respiratory distress syndrome) J80 Pseudomonas pneumonia J15.1 COVID-19 U07.1 Controlled diabetes mellitus type 1 without complications E10.9 Essential (primary) hypertension I10 Morbid obesity with BMI of 45.0-49.9, adult E66.01; Z68.42 Asthma J45.20 Asthma severity: mild Asthma persistence: intermittent Asthma complication type: uncomplicated
--- NOTE | 2021-04-24 15:14 | PC.CHAP ---
Pastoral Care Encounter/Spiritual Assessment Type of Contact [] Declined personnel associate visit [] Patient/Family/Request visit [] Outpatient visit [xx] Follow-up visit [] Physician referral [] Code/Alert [xx] Routine visit [] Staff referral [] Actively dying [] Patient sleeping [] Family support [] [] Out of room [] Palliative care [] [] Receiving care in room [] Pre-surgical visit [] Trauma [xx] Long length of stay [] ICU visit [] Other: Relational/Emotional Strength [xx] Patient feels connected with others/family/visitors/staff [] Distress [] Loneliness/isolation [] Abandonment Spirituality of Patient [xx] Person of Barbara [] Attends Zoroastrian of their Barbara [xxx] Believes in Prayer [xx] Reads Bible or Taoism materials [] There are Spiritual issues to be addressed 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[employer] 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 [xx] Prayer [xx] Active listening [xx] Non-anxious presence [] Spiritual/emotional support [] Crisis/trauma care [] Spiritual counseling [] Bereavement support [] Provided bereavement packet [] Provided Bible/devotional materials [] Provided toy/stuffed animal, coloring book to patient or family member [] Provided Communion [] Anointing/[place] [] Salvation [xx] Completed spiritual assessment [] Other: Impact on Illness or Injury [] Angry [] Fearful [] Anxious [] Often cries [] Exhaustion [] Unable to work [] Unable to attend mu-ism [] Unable to walk/stand [] Unable to read [] Unable to drive [] Unable to eat/drink [] Unable to sleep [] Unable to be with family [] Patient intubated [] Other: Summary Patient is recovering from Covid-19 She feels much better but can't go home until oxygen levels remain high with all basic activities. She worries about her 11 yr old daughter who has been very worried/stressed over patient's hospitalization and near occurrences. Time spent with patient 7 minutes
[2021-04-24 16:42] LABS: Glucose Point of Care 431 mg/dL (70-110)
[2021-04-24] MEDS: fluticasone nasal spray 16gm Btl 2 SPRAY NASAL (17:57)
[2021-04-24 20:30] LABS: Glucose Point of Care 368 mg/dL (70-110)
[2021-04-24] MEDS: pantoprazole DR 40 mg Tablet PO (20:55)
[2021-04-24] MEDS: donepezil 5 MG Tablet 10 MG PO (20:55)
[2021-04-24] MEDS: aspirin 81 mg EC Tablet PO (20:55)
[2021-04-24] MEDS: atorvastatin 40 mg Tablet 20 MG PO (20:56)
[2021-04-25] VITALS (13 sets, daily range): BP systolic 121–152; BP diastolic 77–86; PULSE 100–120; RESP 18–22; TEMP 36.5–37; O2SAT 88–94
[2021-04-25] MEDS: ipratropium-albuterol 3 mL Neb INHALATION ×2 (03:00→09:23)
[2021-04-25] MEDS: levoFLOXacin 500 mg Tablet PO (05:07)
[2021-04-25 06:19] LABS: Basophils # 0.1 10^3/uL (0.0-0.1); Basophils % 0.6 %; Eosinophils # 0.5 10^3/uL (0.0-0.8); Eosinophils % 5.4 %; Hematocrit 41.4 % (37.0-47.0); Hemoglobin 12.6 g/dL (11.5-15.3); Lymphocytes # 2.3 10^3/uL (0.8-4.8); Lymphocytes % 26.9 %; Mean Corpuscular HGB Conc 30.4 g/dL (30.0-36.0); Mean Corpuscular Hemoglobin 26.4 pg (28.0-34.0); Mean Corpuscular Volume 86.8 fl (81-99); Mean Platelet Volume 11.2 fL (7.4-10.4); Monocytes # 0.9 10^3/uL (0.2-0.9); Monocytes % 11.1 %; Neutrophils # 4.67 10^3/uL (1.8-7.7); Neutrophils % 55.2 %; Nucleated Red Blood Cells % 0 %; Platelet Count 171 10^3/cmm (130-400); Red Blood Count 4.77 10^6/uL (4.1-5.3); White Blood Count 8.5 10^3/uL (4.0-10.0)
[2021-04-25 06:23] LABS: Glucose Point of Care 266 mg/dL (70-110)
[2021-04-25 07:05] LABS: Alanine Aminotransferase 79 U/L (0-33); Albumin Level 3.1 g/dL (3.5-5.2); Alkaline Phosphatase 214 IU/L (35-105); Anion Gap 14.9 (5-19); Aspartate Amino Transferase 41 U/L (0-32); Blood Urea Nitrogen 5 mg/dL (6-20); Calcium 8.8 mg/dL (8.5-10.5); Carbon Dioxide 27 mmol/L (22-29); Chloride 95 mmol/L (98-107); Globulin 3.8 g/dL (1.3-4.6); Glomerular Filtration Rate 176.8 mL/min (90-130); Glucose 293 mg/dL (65-115); Osmolality Calculated 284 mOsm/kg (285-295); Potassium 3.9 mmol/L (3.5-5.1); Sodium 133 mmol/L (136-145); Total Bilirubin 0.7 mg/dL (0.15-1.2); Total Protein 6.9 g/dL (6.6-8.7)
[2021-04-25] MEDS: fluconazole 100 mg Tablet PO (09:15)
[2021-04-25] MEDS: duloxetine 20 mg Capsule 40 MG PO (09:15)
[2021-04-25] MEDS: polyethylene glycol 3350 Pkt 17 gm PO (09:15)
[2021-04-25] MEDS: apixaban 5 mg Tablet 2.5 MG PO ×2 (09:16→20:44)
[2021-04-25] MEDS: cetirizine 10 mg Tablet PO (09:16)
[2021-04-25] MEDS: benzonatate 100 mg Capsule PO ×3 (09:16→20:44)
[2021-04-25] MEDS: metoprolol tartrate 50 mg Tablet PO ×2 (09:16→20:45)
[2021-04-25] MEDS: ferrous gluconate 324 mg Tablet PO ×2 (09:16→17:52)
[2021-04-25] MEDS: docusate sodium 100 mg Capsule PO ×2 (09:16→17:52)
[2021-04-25] MEDS: acetaminophen 325 mg Tablet 650 MG PO ×2 (09:21→21:03)
[2021-04-25] MEDS: ALPRAZolam 0.5 mg Tablet PO ×2 (09:21→21:03)
[2021-04-25] MEDS: fluticasone nasal spray 16gm Btl 2 SPRAY NASAL ×2 (09:23→17:55)
[2021-04-25] MEDS: budesonide 0.5 mg/2 mL Neb INHALATION (09:23)
[2021-04-25 11:04] LABS: Glucose Point of Care 372 mg/dL (70-110)
--- NOTE | 2021-04-25 14:05 | PM.PN ---
Subjective Subjective: Interval history: No acute events overnight. Today morning states she is feeling better. Denies any nausea, vomiting, headache. Was placed on heated high flow 45 L 45% overnight and she slept from 10 PM to 3 AM. Today morning on examination on 12 L high flow cannula saturating 94%. Working well with physical therapy. In physical therapy dropped down to 88% on 15 L high flow nasal cannula. Continues to remain highly motivated. Working with incentive spirometry flutter valve. Medications: Reviewed: Yes Vitals/I&O/Wt Last Vital Signs Temp 98.3 F 04/25/21 11:32 Pulse 104 H 04/25/21 11:32 Resp 20 H 04/25/21 11:32 BP 152/86 04/25/21 11:32 Pulse Ox 94 04/25/21 11:32 04/24/21 04/25/21 04/25/21 22:59 06:59 14:59 Intake Total 240 / 1440 Balance 240 / 140 Weight last 48 hrs Weight 145.104 kg Weight 143.653 kg Physical Exam Narrative: EXAM NARRATIVE: General: No acute distress, AO x3, morbidly obese, anxious HEENT: PERRLA, pupils bilaterally equal and reactive, left eye mild ecchymosis present Chest: Normal vesicular breath sounds, no added sounds, equal good air entry bilaterally CVS: S1-S2 regular, no murmurs, no tachycardia, no gallops, no rubs Abdomen: Soft, nontender, no organomegaly, bowel sounds present Neuro: No focal deficits, no facial deformity, AO x3, power 5/5 in all limbs Urinary Catheter Management^: Matthews: Cath Placed During This Visit: yes, but has since been removed by the nurse Reason for Continuing Indwelling Catheter: Decision to DC Catheter Urinary Catheter Date of Insertion: 03/23/21 Urinary Catheter Time of Insertion: 16:47 Date Urinary Catheter Removed: 04/02/21 Time Urinary Catheter Discontinued: 16:00 Data : 04/25/21 05:26 04/25/21 05:26 A&P Assessment and plan (1) ARDS (adult respiratory distress syndrome): Status: Acute (2) Pseudomonas pneumonia: Status: Acute (3) COVID-19: Status: Acute (4) Controlled diabetes mellitus type 1 without complications: Status: Chronic (5) Essential (primary) hypertension: Status: Chronic (6) Morbid obesity with BMI of 45.0-49.9, adult: Status: Acute (7) Asthma: Continue pulmonary toilet Status: Chronic Qualifiers: Asthma severity: mild Asthma persistence: intermittent Asthma complication type: uncomplicated Qualified Code(s): J45.20 - Mild intermittent asthma, uncomplicated Additional A&P Information Hypoxia secondary to COVID-19 pneumonia and Pseudomonas pneumonia: Prolonged hospitalization. Off isolation precautions. Oxygen supplementation keeping saturation over 88%. It has finished a course of 10 days of dexamethasone and 5 days of remdesivir. Post 1 dose Actemra on March 23. Vitamin C, zinc. Switch to Advair, Spiriva. Pulmonary toilet with incentive spirometry flutter valve. We will monitor inflammatory markers including ferritin, ESR, CRP, D-dimer, fibrinogen. For now inflammatory markers have been trended down and has normalized. D-dimer normal. Continue with Eliquis 2.5 mg twice daily. Monitor for anemia or bleeding. Procalcitonin negative, leukocytosis has resolved. Sputum culture positive for Pseudomonas. Stop Augmentin. Has finished 5-day course. Continue Levaquin to finish 7-day course. Patient has already had imipenem up to April 05 and prior to that Zosyn till March 30. Continue with fluconazole orally for 7-day course for Gaby albicans in urine. Echocardiogram done earlier in the admission shows an EF of 60%, no pericardial effusion. Given hypoxia will try to keep patient as negative as possible. 40 mg IV Lasix. Patient net negative since admission though there seems to be a discrepancy in output charting. Strict input output charting, daily weights. Anxiety Continue home dose of Cymbalta every morning, donepezil nightly. Continue PRN klonopin Diabetes 1 mellitus: HbA1c 12.9. Blood sugar still elevated. Increase NovoLog 35 units 3 times daily, continue with insulin sliding scale high-dose protocol. Long-acting 120 mg subcu b.i.d. Continue to adjust insulin as needed Transaminitis. Hepatitis panel negative. Abdominal ultrasound demonstrates likely cyst. AFP without significant elevation Labs stable Klebsiella UTI Status post treatment. Chronic pain syndrome Pain pump Ultram added Full code Eliquis 2.5 mg twice daily for DVT prophylaxis. Protonix for PUD prophylaxis. Plan for today: Continue with incentive spirometry and flutter valve. Add Flonase. Monitor for any fever, diarrhea. Continue to try to wean off oxygen as possible keeping saturation over 88%. Discharge planning: Patient has accepted to go to LTAC. Unfortunately was declined at [facility] because of use of pain pump. Case management is looking for other LTAC. Patient requires LTAC for further pulmonary rehabilitation which unfortunately we do not have at our hospital. Patient has had a prolonged hospitalization and most likely will need further prolonged care because of requiring high oxygen supplementation. Attestations Medical Necessity Statement*: Hospitalization for management of persistent hypoxia secondary to Pseudomonas pneumonia in setting of recent COVID-19 pneumonia requiring 12 L high flow nasal cannula oxygen supplementation Time Spent in Patient Care: Greater than 35 minutes (>than 50% of time spent in counselling and/or direct pt care on unit). 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
[2021-04-25] MEDS: FUROsemide 10 mg/mL SDV 4mL 40 MG IVP (15:22)
[2021-04-25 17:14] LABS: Glucose Point of Care 348 mg/dL (70-110)
--- NOTE | 2021-04-25 18:03 | PC.NURSE ---
Patient's family brought her [employer] roast beef meal for dinner. Patient states, I know I am being bad but I can't help it I have been here a month and it is the same ten meals over and over.
[2021-04-25 20:44] LABS: Glucose Point of Care 443 mg/dL (70-110)
[2021-04-25] MEDS: donepezil 5 MG Tablet 10 MG PO (20:45)
[2021-04-25] MEDS: atorvastatin 40 mg Tablet 20 MG PO (20:45)
[2021-04-25] MEDS: pantoprazole DR 40 mg Tablet PO (20:45)
[2021-04-25] MEDS: aspirin 81 mg EC Tablet PO (20:45)
[2021-04-26] VITALS (11 sets, daily range): BP systolic 124–137; BP diastolic 75–86; PULSE 68–115; RESP 17–20; TEMP 36.4–37; O2SAT 87–92
--- NOTE | 2021-04-26 06:00 | XRR_ITS ---
PROCEDURE INFORMATION: Exam: XR Chest Exam date and time: 04/26/2021 6:00 AM Age: 40 years old Clinical indication: Shortness of breath; Additional info: Covid TECHNIQUE: Imaging protocol: XR of the chest. Views: 1 view. COMPARISON: CT chest con [id number] 04/21/2021 10:07 AM , chest radiographs 04/13/2021 FINDINGS: Lungs: Patulous opacities throughout both lungs with relative sparing of the left upper lung. Pleural spaces: Unremarkable. No pleural effusion. No pneumothorax. Heart/Mediastinum: Unremarkable. No cardiomegaly. Bones/joints: Unremarkable. XR/XR chest 1V portable [id number] IMPRESSION: Patulous opacities throughout both lungs with relative sparing of the left upper lung consistent with COVID pneumonia. Overall, this is not significantly changed from most recent radiographic comparison 04/13/2021.
[2021-04-26] MEDS: levoFLOXacin 500 mg Tablet PO (06:22)
[2021-04-26 06:32] LABS: Basophils # 0.1 10^3/uL (0.0-0.1); Basophils % 0.5 %; Eosinophils # 0.4 10^3/uL (0.0-0.8); Eosinophils % 4.4 %; Hematocrit 42.3 % (37.0-47.0); Lymphocytes # 2.7 10^3/uL (0.8-4.8); Lymphocytes % 29.6 %; Mean Corpuscular HGB Conc 30.7 g/dL (30.0-36.0); Mean Corpuscular Hemoglobin 26.5 pg (28.0-34.0); Mean Corpuscular Volume 86.2 fl (81-99); Mean Platelet Volume 10.9 fL (7.4-10.4); Monocytes # 1.1 10^3/uL (0.2-0.9); Neutrophils # 4.82 10^3/uL (1.8-7.7); Neutrophils % 52.8 %; Nucleated Red Blood Cells % 0 %; Platelet Count 218 10^3/cmm (130-400); Red Blood Count 4.91 10^6/uL (4.1-5.3); Red Cell Distribution Width 21.1 % (12.1-15.1); White Blood Count 9.1 10^3/uL (4.0-10.0)
[2021-04-26 06:34] LABS: Glucose Point of Care 342 mg/dL (70-110)
[2021-04-26 06:41] LABS: D Dimer 0.83 ug/mIFEU (0-0.59)
[2021-04-26 06:56] LABS: Albumin Level 3.1 g/dL (3.5-5.2); Alkaline Phosphatase 222 IU/L (35-105); Anion Gap 14.7 (5-19); Aspartate Amino Transferase 38 U/L (0-32); Blood Urea Nitrogen 6 mg/dL (6-20); Calcium 9.1 mg/dL (8.5-10.5); Carbon Dioxide 29 mmol/L (22-29); Chloride 96 mmol/L (98-107); Globulin 4.2 g/dL (1.3-4.6); Glomerular Filtration Rate 176.8 mL/min (90-130); Glucose 319 mg/dL (65-115); Osmolality Calculated 292 mOsm/kg (285-295); Potassium 3.7 mmol/L (3.5-5.1); Sodium 136 mmol/L (136-145); Total Bilirubin 0.8 mg/dL (0.15-1.2); Total Protein 7.3 g/dL (6.6-8.7)
[2021-04-26 07:07] LABS: Alanine Aminotransferase 71 U/L (0-33)
[2021-04-26 07:51] LABS: C Reactive Protein 72.3 mg/L (0.0-4.9)
[2021-04-26 07:54] LABS: Erythrocyte Sedimentation Rate 54 mm/hr (0-15)
[2021-04-26] MEDS: ferrous gluconate 324 mg Tablet PO ×2 (09:05→17:20)
[2021-04-26] MEDS: docusate sodium 100 mg Capsule PO ×2 (09:05→17:20)
[2021-04-26] MEDS: metoprolol tartrate 50 mg Tablet PO ×2 (09:05→20:38)
[2021-04-26] MEDS: duloxetine 20 mg Capsule 40 MG PO (09:05)
[2021-04-26] MEDS: cetirizine 10 mg Tablet PO (09:05)
[2021-04-26] MEDS: benzonatate 100 mg Capsule PO ×3 (09:05→20:38)
[2021-04-26] MEDS: fluconazole 100 mg Tablet PO (09:05)
[2021-04-26] MEDS: apixaban 5 mg Tablet 2.5 MG PO ×2 (09:06→20:38)
[2021-04-26] MEDS: polyethylene glycol 3350 Pkt 17 gm PO (09:07)
[2021-04-26] MEDS: fluticasone nasal spray 16gm Btl 2 SPRAY NASAL ×2 (09:07→17:20)
[2021-04-26] MEDS: ALPRAZolam 0.5 mg Tablet PO ×2 (09:22→21:08)
[2021-04-26] MEDS: acetaminophen 325 mg Tablet 650 MG PO ×2 (09:22→21:08)
[2021-04-26 11:08] LABS: Glucose Point of Care 364 mg/dL (70-110)
--- NOTE | 2021-04-26 14:46 | P.PN_ITS ---
Subjective Subjective: Interval history: No current overnight. Was placed on heated high flow last night for her to sleep. Currently on 12 L high flow nasal cannula. Denies any nausea, vomiting, headache. Continues to work well with physical therapy and incentive spirometry flutter valve. Denies any active complaints. Remains motivated. Medications: Reviewed: Yes Vitals/I&O/Wt Last Vital Signs Temp 97.9 F 04/26/21 12:00 Pulse 104 H 04/26/21 12:00 Resp 18 04/26/21 12:00 BP 131/85 04/26/21 12:00 Pulse Ox 90 04/26/21 12:00 04/25/21 04/26/21 04/26/21 22:59 06:59 14:59 Intake Total 440 / 440 Balance 440 / 440 Weight last 48 hrs Weight 142.7 kg Weight 145.104 kg Physical Exam Narrative: EXAM NARRATIVE: General: No acute distress, AO x3, morbidly obese, anxious HEENT: PERRLA, pupils bilaterally equal and reactive, left eye mild ecchymosis present Chest: Normal vesicular breath sounds, no added sounds, equal good air entry bilaterally CVS: S1-S2 regular, no murmurs, no tachycardia, no gallops, no rubs Abdomen: Soft, nontender, no organomegaly, bowel sounds present Neuro: No focal deficits, no facial deformity, AO x3, power 5/5 in all limbs Urinary Catheter Management^: Matthews: Cath Placed During This Visit: yes, but has since been removed by the nurse Reason for Continuing Indwelling Catheter: Decision to DC Catheter Urinary Catheter Date of Insertion: 03/23/21 Urinary Catheter Time of Insertion: 16:47 Date Urinary Catheter Removed: 04/02/21 Time Urinary Catheter Discontinued: 16:00 Data : 04/26/21 05:53 04/26/21 05:53 A&P Assessment and plan (1) ARDS (adult respiratory distress syndrome): Status: Acute (2) Pseudomonas pneumonia: Status: Acute (3) COVID-19: Status: Acute (4) Controlled diabetes mellitus type 1 without complications: Status: Chronic (5) Essential (primary) hypertension: Status: Chronic (6) Morbid obesity with BMI of 45.0-49.9, adult: Status: Acute (7) Asthma: Continue pulmonary toilet Status: Chronic Qualifiers: Asthma severity: mild Asthma persistence: intermittent Asthma complication type: uncomplicated Qualified Code(s): J45.20 - Mild intermittent asthma, uncomplicated Additional A&P Information Hypoxia secondary to COVID-19 pneumonia and Pseudomonas pneumonia: Prolonged hospitalization. Off isolation precautions. Oxygen supplementation keeping saturation over 88%. Has finished a course of 10 days of dexamethasone and 5 days of remdesivir. Post 1 dose Actemra on March 23. Vitamin C, zinc. Switch to Advair, Spiriva. Pulmonary toilet with incentive spirometry flutter valve. We will monitor inflammatory markers including ferritin, ESR, CRP, D-dimer, fibrinogen. D-dimer normal. Continue with Eliquis 2.5 mg twice daily. Monitor for anemia or bleeding. Procalcitonin negative, leukocytosis has resolved. Sputum culture positive for Pseudomonas. Stop Augmentin. Has finished 5-day course. Continue Levaquin to finish 7-day course. Patient has already had imipenem up to April 05 and prior to that Zosyn till March 30. Continue with fluconazole orally for 7-day course for Gaby albicans in urine. Echocardiogram done earlier in the admission shows an EF of 60%, no pericardial effusion. Given hypoxia will try to keep patient as negative as possible. 40 mg IV Lasix. Patient net negative since admission though there seems to be a discrepancy in output charting. Strict input output charting, daily weights. Anxiety Continue home dose of Cymbalta every morning, donepezil nightly. Continue PRN klonopin Diabetes 1 mellitus: HbA1c 12.9. Blood sugar still elevated. Increase NovoLog 35 units 3 times daily, continue with insulin sliding scale high-dose protocol. Long-acting 120 mg subcu b.i.d. Continue to adjust insulin as needed Transaminitis. Hepatitis panel negative. Abdominal ultrasound demonstrates likely cyst. AFP without significant elevation Labs stable Klebsiella UTI Status post treatment. Chronic pain syndrome Pain pump Ultram added Full code Eliquis 2.5 mg twice daily for DVT prophylaxis. Protonix for PUD prophylaxis. Plan for today: Continue with incentive spirometry and flutter valve. Add Flonase. Monitor for any fever, diarrhea. Continue to try to wean off oxygen as possible keeping saturation over 88%. Discharge planning: Patient has accepted to go to LTAC. Unfortunately was declined at [facility] because of use of pain pump. Case management is looking for other LTAC. Patient requires LTAC for further pulmonary rehabilit ation which unfortunately we do not have at our hospital. Patient has had a prolonged hospitalization and most likely will need further prolonged care because of requiring high oxygen supplementation. Attestations Medical Necessity Statement*: Hospitalization for management of persistent hypoxia secondary COVID-19 pneumonia Pseudomonas pneumonia, type 1 diabetes mellitus she still requiring high flow nasal cannula. Time Spent in Patient Care: Greater than 35 minutes (>than 50% of time spent in counselling and/or direct pt care on unit) . 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
[2021-04-26 17:17] LABS: Glucose Point of Care 339 mg/dL (70-110)
[2021-04-26 20:09] LABS: Glucose Point of Care 333 mg/dL (70-110)
[2021-04-26] MEDS: atorvastatin 40 mg Tablet 20 MG PO (20:37)
[2021-04-26] MEDS: pantoprazole DR 40 mg Tablet PO (20:38)
[2021-04-26] MEDS: donepezil 5 MG Tablet 10 MG PO (20:38)
[2021-04-26] MEDS: aspirin 81 mg EC Tablet PO (20:38)
--- NOTE | 2021-04-26 20:52 | PC.NURSE ---
i reported low temp 97.5 and high pulse 112 to nurse
[2021-04-27] VITALS (14 sets, daily range): BP systolic 107–143; BP diastolic 61–88; PULSE 60–109; RESP 16–18; TEMP 36.5–36.8; O2SAT 86–94; BMI 45.7
--- NOTE | 2021-04-27 00:43 | PC.NURSE ---
i reported high pulse 103 to nurse
[2021-04-27] MEDS: levoFLOXacin 500 mg Tablet PO (05:19)
[2021-04-27 05:33] LABS: Basophils # 0.1 10^3/uL (0.0-0.1); Basophils % 0.8 %; Eosinophils # 0.3 10^3/uL (0.0-0.8); Eosinophils % 4.2 %; Hematocrit 41.9 % (37.0-47.0); Hemoglobin 12.4 g/dL (11.5-15.3); Lymphocytes # 2.4 10^3/uL (0.8-4.8); Lymphocytes % 32.7 %; Mean Corpuscular HGB Conc 29.6 g/dL (30.0-36.0); Mean Corpuscular Hemoglobin 26.7 pg (28.0-34.0); Mean Corpuscular Volume 90.1 fl (81-99); Monocytes # 0.8 10^3/uL (0.2-0.9); Monocytes % 11.5 %; Neutrophils # 3.65 10^3/uL (1.8-7.7); Neutrophils % 49.8 %; Nucleated Red Blood Cells % 0 %; Platelet Count 196 10^3/cmm (130-400); Red Blood Count 4.65 10^6/uL (4.1-5.3); Red Cell Distribution Width 21.4 % (12.1-15.1); White Blood Count 7.3 10^3/uL (4.0-10.0)
[2021-04-27 06:30] LABS: Glucose Point of Care 331 mg/dL (70-110)
--- NOTE | 2021-04-27 06:31 | PC.NURSE ---
Shift Summary: Patient rested well with high flow nasal canula all night. No acute events overnight.
[2021-04-27 07:06] LABS: Alanine Aminotransferase 58 U/L (0-33); Albumin Level 2.9 g/dL (3.5-5.2); Alkaline Phosphatase 189 IU/L (35-105); Aspartate Amino Transferase 29 U/L (0-32); Blood Urea Nitrogen 8 mg/dL (6-20); Calcium 8.3 mg/dL (8.5-10.5); Carbon Dioxide 28 mmol/L (22-29); Chloride 97 mmol/L (98-107); Globulin 3.6 g/dL (1.3-4.6); Glomerular Filtration Rate 176.8 mL/min (90-130); Glucose 316 mg/dL (65-115); Osmolality Calculated 290 mOsm/kg (285-295); Sodium 135 mmol/L (136-145); Total Bilirubin 0.5 mg/dL (0.15-1.2); Total Protein 6.5 g/dL (6.6-8.7)
[2021-04-27] MEDS: docusate sodium 100 mg Capsule PO ×2 (08:12→17:20)
[2021-04-27] MEDS: cetirizine 10 mg Tablet PO (08:12)
[2021-04-27] MEDS: fluconazole 100 mg Tablet PO (08:12)
[2021-04-27] MEDS: metoprolol tartrate 50 mg Tablet PO ×2 (08:12→20:23)
[2021-04-27] MEDS: benzonatate 100 mg Capsule PO ×3 (08:12→20:22)
[2021-04-27] MEDS: duloxetine 20 mg Capsule 40 MG PO (08:12)
[2021-04-27] MEDS: polyethylene glycol 3350 Pkt 17 gm PO (08:13)
[2021-04-27] MEDS: ferrous gluconate 324 mg Tablet PO ×2 (08:13→17:20)
[2021-04-27] MEDS: apixaban 5 mg Tablet 2.5 MG PO ×2 (08:13→20:22)
[2021-04-27] MEDS: fluticasone nasal spray 16gm Btl 2 SPRAY NASAL ×2 (08:14→17:21)
--- NOTE | 2021-04-27 08:47 | PC.CHAP ---
Pastoral Care Encounter/Spiritual Assessment Type of Contact [] Declined kiss setter hand visit [] Patient/Family/Request visit [] Outpatient visit [] Follow-up visit [] Physician referral [] Code/Alert [x] Routine visit [] Staff referral [] Actively dying [] Patient sleeping [] Family support [] [] Out of room [] Palliative care [] [] Receiving care in room [] Pre-surgical visit [] Trauma [] Long length of stay [] ICU visit [] Other: Relational/Emotional Strength [] Patient feels connected with others/family/visitors/staff [] Distress [] Loneliness/isolation [] Abandonment Spirituality of Patient [x] Person of Barbara [] Attends Jain of their Barbara [] Believes in Prayer [] Reads Bible or Episcopal materials [] There are Spiritual issues to be addressed Electrical Transmission Engineer 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 [x] Prayer [x] Active listening [x] Non-anxious presence [x] Spiritual/emotional support [] Crisis/trauma care [] Spiritual counseling [] Bereavement support [] Provided bereavement packet [] Provided Bible/devotional materials [] Provided toy/stuffed animal, coloring book to patient or family member [] Provided Communion [] Anointing/[place] [] Salvation [x] Completed spiritual assessment [] Other: Impact on Illness or Injury [] Angry [] Fearful [] Anxious [] Often cries [] Exhaustion [] Unable to work [] Unable to attend jewish [] Unable to walk/stand [] Unable to read [] Unable to drive [] Unable to eat/drink [] Unable to sleep [] Unable to be with family [] Patient intubated [] Other: Summary john been visiting patient in 2A and on Med surg. she continues to improve- but still has issues with breathing at night... not getting restful sleep Time spent with patient 15 min
[2021-04-27 11:11] LABS: Glucose Point of Care 329 mg/dL (70-110)
[2021-04-27 17:09] LABS: Glucose Point of Care 341 mg/dL (70-110)
[2021-04-27] MEDS: acetaminophen 325 mg Tablet 650 MG PO (17:24)
--- NOTE | 2021-04-27 20:17 | P.PN_ITS ---
Subjective Subjective: Interval history: She reports she is doing all right. Denies any changes from last night. Has some chest discomfort when she takes a very deep breaths. Denies chest pain otherwise. No headache, nausea vomiting or diarrhea. Vitals/I&O/Wt Last Vital Signs Temp 98.0 F 04/27/21 19:57 Pulse 102 H 04/27/21 20:00 Resp 18 04/27/21 20:00 BP 114/61 04/27/21 19:57 Pulse Ox 87 L 04/27/21 20:00 04/27/21 04/27/21 04/27/21 06:59 14:59 22:59 Intake Total 380 / 620 720 / 720 240 / 960 Balance 380 / 620 720 / 720 240 / 960 Weight last 48 hrs Weight 144.469 kg Weight 142.7 kg Physical Exam Const: COMMON NORMALS: no acute distress and patient oriented x3 NUTRITIONAL APPEARANCE: obese HENMT: COMMON NORMALS: oropharynx normal Neck/C-Spine: COMMON NORMALS: no JVD Resp: COMMON NORMALS: normal respiratory effort and clear to auscultation bilaterally AUSCULTATION: clear to auscultation bilaterally Cardio: COMMON NORMALS: no JVD, regular rhythm, S1 normal heart sound present, S2 normal heart sound present and No murmurs present (Cardio) RHYTHM: regular rhythm HEART SOUNDS: S1 normal heart sound present and S2 normal heart sound present GI: COMMON NORMALS: Normal to inspection, nondistended, normoactive bowel sounds present, Soft to palpation and non-tender PALPATION: Yes Soft to palpation Extremity: COMMON NORMALS: no joint enlargement and no pedal edema Neuro: COMMON NORMALS: patient oriented x3 and moves all extremities Skin: COMMON NORMALS: no rashes or lesions noted GENERAL SKIN EXAM: no ra shes or lesions noted Urinary Catheter Management^: Matthews: Cath Placed During This Visit: yes, but has since been removed by the nurse Reason for Continuing Indwelling Catheter: Decision to DC Catheter Urinary Catheter Date of Insertion: 03/23/21 Urinary Catheter Time of Insertion: 16:47 Date Urinary Catheter Removed: 04/02/21 Time Urinary Catheter Discontinued: 16:00 Data : 04/27/21 05:17 04/27/21 06:27 A&P Assessment and plan (1) COVID-19: Continue oxygen support with severe COVID-19, continue to wean down as tolerating. As discussed with her, pending additional assessment for LTAC placement. Otherwise if weans down sufficiently may be able to perhaps consider conservative plans, possibly even returning home. Continue Advair, Spiriva, continue supportive care. DC further Levaquin as has completed 7-day course. Has been continued on Eliquis. Status: Acute (2) ARDS (adult respiratory distress syndrome): Status: Acute (3) Pseudomonas pneumonia: DC Levaquin. Completed 7-day course. Monitor. Status: Acute (4) Essential (primary) hypertension: Status: Chronic (5) Morbid obesity with BMI of 45.0-49.9, adult: Status: Acute (6) Asthma: Continue pulmonary toilet Status: Chronic Qualifiers: Asthma severity: mild Asthma persistence: intermittent Asthma complication type: uncomplicated Qualified Code(s): J45.20 - Mild intermittent asthma, uncomplicated Additional A&P Information Yeast cystitis: Completed 7 days of Diflucan. Anxiety Continue home dose of Cymbalta every morning, donepezil nightly. Continue PRN klonopin Uncontrolled diabetes 1 mellitus: HbA1c 12.9. Increase Lantus dose to 125 units twice daily. Transaminitis. Improving. Hepatitis panel negative. Abdominal ultrasound demonstrates likely cyst. AFP without significant elevation Labs stable Klebsiella UTI: Treated Chronic pain syndrome Pain pump Ultram as needed Attestations Medical Necessity Statement*: Continue management of persistent hypoxic respir atory failure with severe COVID-19, weaning off oxygen support, de-escalation of antibiotics following pseudomonal pneumonia, de-escalation of antifungal following yeast cystitis. Disposition planning and arrangements. 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
[2021-04-27] MEDS: pantoprazole DR 40 mg Tablet PO (20:23)
[2021-04-27] MEDS: donepezil 5 MG Tablet 10 MG PO (20:23)
[2021-04-27] MEDS: aspirin 81 mg EC Tablet PO (20:23)
[2021-04-27] MEDS: ALPRAZolam 0.5 mg Tablet PO (20:23)
[2021-04-27] MEDS: atorvastatin 40 mg Tablet 20 MG PO (20:23)
[2021-04-27 20:28] LABS: Glucose Point of Care 312 mg/dL (70-110)
[2021-04-28] VITALS (12 sets, daily range): BP systolic 120–142; BP diastolic 79–87; PULSE 80–112; RESP 16–20; TEMP 36.5–36.7; O2SAT 89–95
[2021-04-28 05:11] LABS: Basophils # 0.1 10^3/uL (0.0-0.1); Basophils % 0.8 %; Eosinophils # 0.3 10^3/uL (0.0-0.8); Eosinophils % 4.4 %; Hematocrit 40.9 % (37.0-47.0); Hemoglobin 12.3 g/dL (11.5-15.3); Lymphocytes # 2.3 10^3/uL (0.8-4.8); Lymphocytes % 29.7 %; Mean Corpuscular HGB Conc 30.1 g/dL (30.0-36.0); Mean Corpuscular Hemoglobin 26.4 pg (28.0-34.0); Mean Corpuscular Volume 87.8 fl (81-99); Mean Platelet Volume 11.1 fL (7.4-10.4); Monocytes # 0.9 10^3/uL (0.2-0.9); Monocytes % 11.2 %; Neutrophils # 4.15 10^3/uL (1.8-7.7); Neutrophils % 53.3 %; Nucleated Red Blood Cells % 0 %; Platelet Count 236 10^3/cmm (130-400); Red Blood Count 4.66 10^6/uL (4.1-5.3); Red Cell Distribution Width 21.5 % (12.1-15.1); White Blood Count 7.8 10^3/uL (4.0-10.0)
[2021-04-28 05:24] LABS: D Dimer 1.48 ug/mIFEU (0-0.59)
[2021-04-28 05:31] LABS: Alanine Aminotransferase 49 U/L (0-33); Albumin Level 2.8 g/dL (3.5-5.2); Alkaline Phosphatase 184 IU/L (35-105); Anion Gap 12.1 (5-19); Aspartate Amino Transferase 31 U/L (0-32); Blood Urea Nitrogen 8 mg/dL (6-20); Calcium 8.5 mg/dL (8.5-10.5); Carbon Dioxide 29 mmol/L (22-29); Chloride 98 mmol/L (98-107); Globulin 3.6 g/dL (1.3-4.6); Glomerular Filtration Rate 176.8 mL/min (90-130); Glucose 309 mg/dL (65-115); Osmolality Calculated 290 mOsm/kg (285-295); Potassium 4.1 mmol/L (3.5-5.1); Sodium 135 mmol/L (136-145); Total Bilirubin 0.5 mg/dL (0.15-1.2); Total Protein 6.4 g/dL (6.6-8.7)
[2021-04-28 05:32] LABS: C Reactive Protein 52.8 mg/L (0.0-4.9)
--- NOTE | 2021-04-28 06:00 | XRR_ITS ---
PROCEDURE INFORMATION: Exam: XR Chest Exam date and time: 04/28/2021 6:00 AM Age: 40 years old Clinical indication: Condition or disease; Lung condition and disease; Other: Covid TECHNIQUE: Imaging protocol: XR of the chest. Views: 1 view. COMPARISON: CR (CHEST, ) 04/26/2021 11:02 AM FINDINGS: Lungs: Low lung volumes. Persistent bilateral airspace opacities. No large pleural effusion or pneumothorax. Pleural spaces: See Lungs finding. Heart/Mediastinum: Stable cardiomediastinal silhouette. Bones/joints: No acute osseous injury identified. XR/XR chest 1V portable [id number] IMPRESSION: Persistent bilateral airspace opacities.
[2021-04-28 06:30] LABS: Erythrocyte Sedimentation Rate 55 mm/hr (0-15)
[2021-04-28 06:39] LABS: Glucose Point of Care 297 mg/dL (70-110)
--- NOTE | 2021-04-28 07:09 | PC.NURSE ---
Patient remained on HFNC all night. No acute events. Ready to go home. Slight depression noted.
--- NOTE | 2021-04-28 08:42 | PC.RESP ---
RT Shift Note Frequent safety and respiratory rounds continue. Orders completed as indicated. Patient monitored pre and post treatments throughout shift. Patient [Did.] tolerate treatments appropriately. Condition [.DidNotChange]. Patient and/or regional sales representative educated on respiratory treatment and medications. Patient and/or regional sales representative [verbalized understanding]. Will continue to monitor patient progress.
[2021-04-28] MEDS: duloxetine 20 mg Capsule 40 MG PO (08:45)
[2021-04-28] MEDS: cetirizine 10 mg Tablet PO (08:45)
[2021-04-28] MEDS: docusate sodium 100 mg Capsule PO ×2 (08:45→18:15)
[2021-04-28] MEDS: ferrous gluconate 324 mg Tablet PO ×2 (08:45→18:15)
[2021-04-28] MEDS: benzonatate 100 mg Capsule PO ×3 (08:45→22:22)
[2021-04-28] MEDS: metoprolol tartrate 50 mg Tablet PO ×2 (08:45→22:21)
[2021-04-28] MEDS: apixaban 5 mg Tablet 2.5 MG PO ×2 (08:45→22:22)
[2021-04-28] MEDS: polyethylene glycol 3350 Pkt 17 gm PO (08:46)
[2021-04-28] MEDS: fluticasone nasal spray 16gm Btl 2 SPRAY NASAL ×2 (08:50→18:16)
[2021-04-28] MEDS: acetaminophen 325 mg Tablet 650 MG PO ×2 (10:19→22:37)
[2021-04-28 11:14] LABS: Glucose Point of Care 313 mg/dL (70-110)
--- NOTE | 2021-04-28 13:13 | PM.PN ---
Subjective Subjective: Interval history: Today going to the restroom she was checking her saturation and noted it was desaturating down to 63%. She got quite tired and winded, had to sit down urgently on the edge of bed. It took her a while to get her saturation back up to mid 80s. Discussed with her using the commode, her, and she states that from where her bed is to the bathroom or to the commode was the same distance. Discussed with her at this time to request assistance when she needs to get around or ambulate. She agrees. Vitals/I&O/Wt Last Vital Signs Temp 98.1 F 04/28/21 12:00 Pulse 95 04/28/21 12:00 Resp 18 04/28/21 12:00 BP 126/80 04/28/21 12:00 Pulse Ox 91 04/28/21 12:00 04/27/21 04/28/21 04/28/21 22:59 06:59 14:59 Intake Total 240 / 960 240 / 1200 720 / 720 Balance 240 / 960 240 / 1200 720 / 720 Weight last 48 hrs Weight 145.603 kg Weight 144.469 kg Physical Exam Const: COMMON NORMALS: no acute distress and patient oriented x3 NUTRITIONAL APPEARANCE: obese HENMT: COMMON NORMALS: oropharynx normal Neck/C-Spine: COMMON NORMALS: no JVD Resp: COMMON NORMALS: normal respiratory effort and clear to auscultation bilaterally AUSCULTATION: clear to auscultation bilaterally Cardio: COMMON NORMALS: no JVD, regular rhythm, S1 normal heart sound present, S2 normal heart sound present and No murmurs present (Cardio) RHYTHM: regular rhythm HEART SOUNDS: S1 normal heart sound present and S2 normal heart sound present GI: COMMON NORMALS: Normal to inspection, nondistended, normoactive bowel sounds present, Soft to palpation and non-tender PALPATION: Yes Soft to palpation Extremity: COMMON NORMALS: no joint enlargement and no pedal edema Neuro: COMMON NORMALS: patient oriented x3 and moves all extremities Skin: COMMON NORMALS: no rashes or lesions noted GENERAL SKIN EXAM: no rashes or lesions noted Urinary Catheter Management^: Matthews: Cath Placed During This Visit: yes, but has since been removed by the nurse Reason for Continuing Indwelling Catheter: Decision to DC Catheter Urinary Catheter Date of Insertion: 03/23/21 Urinary Catheter Time of Insertion: 16:47 Date Urinary Catheter Removed: 04/02/21 Time Urinary Catheter Discontinued: 16:00 Data : 04/28/21 04:45 04/28/21 04:45 A&P Assessment and plan (1) COVID-19: Desaturates quite easily with exertion. At rest feels comfortable. But with trying to ambulate to the restroom desaturated to 63%. Took her a while to regain saturation. Up to 90%, but had to be increased on flow of oxygen. Continue mobilization attempts cautiously. Up with assistance. PT. Wean down oxygen support as tolerating. Continue arrangements for placement to LTAC given severe desaturation with exertion she is not yet ready to return home. Continue Advair, Spiriva, continue supportive care. Completed 7-day course of Levaquin. Has been continued on Eliquis. Status: Acute (2) ARDS (adult respiratory distress syndrome): Status: Acute (3) Pseudomonas pneumonia: Completed 7-day course of Levaquin. Monitor. Status: Acute (4) Essential (primary) hypertension: Status: Chronic (5) Morbid obesity with BMI of 45.0-49.9, adult: Status: Acute (6) Asthma: Continue pulmonary toilet Status: Chronic Qualifiers: Asthma complication type: uncomplicated Asthma persistence: intermittent Asthma severity: mild Qualified Code(s): J45.20 - Mild intermittent asthma, uncomplicated Additional A&P Information Yeast cystitis: Completed 7 days of Diflucan. Anxiety Continue home dose of Cymbalta every morning, donepezil nightly. Continue PRN klonopin Uncontrolled diabetes 1 mellitus: HbA1c 12.9. Increase Lantus dose to 125 units twice daily. Transaminitis. Improving. Hepatitis panel negative. Abdominal ultrasound demonstrates likely cyst. AFP without significant elevation Labs stable Klebsiella UTI: Treated Chronic pain syndrome Pain pump Ultram as needed Attestations Medical Necessity Statement*: Continue admission due to hypoxic respite failure monitoring after de-escalation of antibiotic due to bacterial superinfection, with desaturation with minimal exertion, continued mobilization, in the setting of difficult/slow weaning of high oxygen requirement. Disposition planning and arrangements. Coding Level of Care Code Acute Salon Supervisor for [facility] Diagnoses COVID-19 U07.1 ARDS (adult respiratory distress syndrome) J80 Pseudomonas pneumonia J15.1 Essential (primary) hypertension I10 Morbid obesity with BMI of 45.0-49.9, adult E66.01; Z68.42 Asthma J45.20 Asthma complication type: uncomplicated Asthma persistence: intermittent Asthma severity: mild
[2021-04-28] MEDS: ALPRAZolam 0.5 mg Tablet PO (15:32)
--- NOTE | 2021-04-28 16:20 | PC.RESP ---
Pt upset and crying. sats 85% on 10 lpm pendant. o2 increased to 12 lpm sat now 90%
--- NOTE | 2021-04-28 16:52 | PC.NURSE ---
[address] Magistrate entered room to administer 1500 meds and patient was very upset. patient stated that SS was very rude to her today. She said that she is trying to get the requested information for the shawn form but she needs her computer to get the information. She said if her come bring her her computer before visiting hours she can get most or all of the requested documents. she said that she tried to voice concerns to JEFE Michaud that she can not give up her SSI check because that is how she pays her mortgage. She said that JEFE Michaud asked if her works. Patient said yes but his check is used to pay other bills. Like water, electric, phone, and car insurance as well as supporting their 11 year old daughter. Patient said she asked JEFE Michaud if she only had one bill. She said JEFE Michaud told her I pay my bills. Patient said she is trying to do what they ask her and JEFE is acting cold toward her. She said JEFE Michaud said we may have to find a company that will double up on the oxygen so she can go home but she will have a 50/50 chance at that point. She said JEFE Michaud said we don't want you to be scared if you have to go home. Patient said how can I not be scared to loose my house, loose kid or even loose my life. RT Sylvia came to commercial underwriter and voiced concerns that patient told her about SS. [address] Magistrate explained that patient voiced concerns to me as well and I let charge nurse Keila know. Keila Vargas, and Brittany (on speaker phone) talked to patient and patient voiced the same concerns and she requested to speak with Dr Zuñiga. and Keila talked to Dr Zuñiga and let him know that patient wants to speak with him and voice her concerns. Per Dr Zuñiga, I will see her tomorrow.
[2021-04-28 17:37] LABS: Glucose Point of Care 329 mg/dL (70-110)
[2021-04-28 20:57] LABS: Glucose Point of Care 365 mg/dL (70-110)
--- NOTE | 2021-04-28 21:36 | PC.NURSE ---
i reported high pulse 104 to nurse
[2021-04-28] MEDS: pantoprazole DR 40 mg Tablet PO (22:22)
[2021-04-28] MEDS: donepezil 5 MG Tablet 10 MG PO (22:23)
[2021-04-28] MEDS: atorvastatin 40 mg Tablet 20 MG PO (22:24)
[2021-04-28] MEDS: aspirin 81 mg EC Tablet PO (22:24)
[2021-04-29] VITALS (12 sets, daily range): BP systolic 115–138; BP diastolic 65–84; PULSE 75–107; RESP 17–21; TEMP 36.5–36.8; O2SAT 20–94
[2021-04-29 05:20] LABS: Basophils % 0.6 %; Eosinophils # 0.3 10^3/uL (0.0-0.8); Eosinophils % 4.5 %; Hematocrit 39.9 % (37.0-47.0); Hemoglobin 12.3 g/dL (11.5-15.3); Lymphocytes % 29.6 %; Mean Corpuscular HGB Conc 30.8 g/dL (30.0-36.0); Mean Corpuscular Hemoglobin 26.9 pg (28.0-34.0); Mean Corpuscular Volume 87.1 fl (81-99); Mean Platelet Volume 11.3 fL (7.4-10.4); Monocytes # 0.7 10^3/uL (0.2-0.9); Neutrophils % 53.6 %; Nucleated Red Blood Cells % 0 %; Platelet Count 209 10^3/cmm (130-400); Red Blood Count 4.58 10^6/uL (4.1-5.3); Red Cell Distribution Width 21.3 % (12.1-15.1); White Blood Count 6.7 10^3/uL (4.0-10.0)
[2021-04-29 05:35] LABS: Alanine Aminotransferase 45 U/L (0-33); Albumin Level 2.8 g/dL (3.5-5.2); Alkaline Phosphatase 193 IU/L (35-105); Blood Urea Nitrogen 5 mg/dL (6-20); Calcium 8.1 mg/dL (8.5-10.5); Carbon Dioxide 26 mmol/L (22-29); Chloride 97 mmol/L (98-107); Glomerular Filtration Rate 246.4 mL/min (90-130); Glucose 341 mg/dL (65-115); Osmolality Calculated 289 mOsm/kg (285-295); Sodium 134 mmol/L (136-145); Total Bilirubin 0.5 mg/dL (0.15-1.2); Total Protein 5.8 g/dL (6.6-8.7)
[2021-04-29 05:38] LABS: Anion Gap 15.5 (5-19); Aspartate Amino Transferase 41 U/L (0-32); Potassium 4.5 mmol/L (3.5-5.1)
[2021-04-29 06:30] LABS: Glucose Point of Care 316 mg/dL (70-110)
[2021-04-29] MEDS: docusate sodium 100 mg Capsule PO ×2 (09:04→17:02)
[2021-04-29] MEDS: benzonatate 100 mg Capsule PO ×3 (09:04→21:53)
[2021-04-29] MEDS: cetirizine 10 mg Tablet PO (09:04)
[2021-04-29] MEDS: polyethylene glycol 3350 Pkt 17 gm PO (09:06)
[2021-04-29] MEDS: metoprolol tartrate 50 mg Tablet PO ×2 (09:13→21:52)
[2021-04-29] MEDS: ferrous gluconate 324 mg Tablet PO ×2 (09:13→17:01)
[2021-04-29] MEDS: acetaminophen 325 mg Tablet 650 MG PO ×3 (09:13→23:03)
[2021-04-29] MEDS: apixaban 5 mg Tablet 2.5 MG PO ×2 (09:14→21:55)
[2021-04-29] MEDS: fluticasone nasal spray 16gm Btl 2 SPRAY NASAL ×2 (09:15→17:05)
[2021-04-29] MEDS: duloxetine 20 mg Capsule 40 MG PO (09:15)
[2021-04-29] MEDS: TRAMadol 50 mg Tablet PO (09:19)
[2021-04-29 10:38] LABS: Glucose Point of Care 435 mg/dL (70-110)
--- NOTE | 2021-04-29 14:21 | P.PN_ITS ---
Subjective Subjective: Interval history: Her improvement so far has slowed down somewhat she feels almost like she is taking a step back. She denies chest pain or pressure. No headache, no nausea vomiting or diarrhea. She had to switch back to high flow cannula from pendant as she felt it did not work as well, as well as the cord was very short, limiting her ability to continue trying to do her exercises. Vitals/I&O/Wt Last Vital Signs Temp 98.3 F 04/29/21 12:02 Pulse 88 04/29/21 12:02 Resp 18 04/29/21 12:02 BP 128/65 04/29/21 12:02 Pulse Ox 93 04/29/21 12:02 04/28/21 04/29/21 04/29/21 22:59 06:59 14:59 Intake Total 240 / 1420 1200 / 2620 480 / 480 Output Total 1400 / 1400 Balance 240 / 1420 -200 / 1220 480 / 480 Weight last 48 hrs Weight 147.021 kg Weight 145.603 kg Physical Exam Const: COMMON NORMALS: no acute distress and patient oriented x3 NUTRITIONAL APPEARANCE: obese HENMT: COMMON NORMALS: oropharynx normal Neck/C-Spine: COMMON NORMALS: no JVD Resp: COMMON NORMALS: normal respiratory effort and clear to auscultation bi laterally AUSCULTATION: clear to auscultation bilaterally Cardio: COMMON NORMALS: no JVD, regular rhythm, S1 normal heart sound present, S2 normal heart sound present and No murmurs present (Cardio) RHYTHM: regular rhythm HEART SOUNDS: S1 normal heart sound present and S2 normal heart sound present GI: COMMON NORMALS: Normal to inspection, nondistended, normoactive bowel sounds present, Soft to palpation and non-tender PALPATION: Yes Soft to palpation Extremity: COMMON NORMALS: no joint enlargement and no pedal edema Neuro: COMMON NORMALS: patient oriented x3 and moves all extremities Skin: COMMON NORMALS: no rashes or lesions noted GENERAL SKIN EXAM: no rashes or lesions noted Urinary Catheter Management^: Matthews: Cath Placed During This Visit: yes, but has since been removed by the nurse Reason for Continuing Indwelling Catheter: Decision to DC Catheter Urinary Catheter Date of Insertion: 03/23/21 Urinary Catheter Time of Insertion: 16:47 Date Urinary Catheter Removed: 04/02/21 Time Urinary Catheter Discontinued: 16:00 Data : 04/29/21 04:54 04/29/21 04:54 A&P Assessment and plan (1) COVID-19: Continue attempts to wean down on oxygen support. Continue to mobilize. Discussed with her in case she is worsening, we will repeat chest x-ray. Continue arrangements for placement prior to return home given desaturation with exertion. Continue Advair, Spiriva, continue supportive care. Completed 7-day course of Levaquin. Has been continued on Eliquis. Status: Acute (2) ARDS (adult respiratory distress syndrome): Status: Acute (3) Pseudomonas pneumonia: Completed 7-day course of Levaquin. Monitor. Status: Acute (4) Essential (primary) hypertension: Status: Chronic (5) Morbid obesity with BMI of 45.0-49.9, adult: Status: Acute (6) Asthma: Continue pulmonary toilet Status: Chronic Qualifiers: Asthma severity: mild Asthma persistence: intermittent Asthma complication type: uncomplicated Qualified Code(s): J45.20 - Mild intermittent asthma, uncomplicated Additional A&P Information Yeast cystitis: Completed 7 days of Diflucan. Anxiety Continue home dose of Cymbalta every morning, donepezil nightly. Continue PRN klonopin Uncontrolled diabetes 1 mellitus: HbA1c 12.9. Increase Lantus dose to 125 units twice daily. Transaminitis. Improving. Hepatitis panel negative. Abdominal ultrasound demonstrates likely cyst. AFP without significant elevation Labs stable Klebsiella UTI: Treated Chronic pain syndrome Pain pump Ultram as needed Attestations Medical Necessity Statement*: Continue admission for assessment of management of hypoxic respiratory failure with diffuse alveolar damage following severe COVID-19 Coding Level of Care Code Acute Chief Juvenile Probation Officer for [facility] Diagnoses COVID-19 U07.1 ARDS (adult respiratory distress syndrome) J80 Pseudomonas pneumonia J15.1 Essential (primary) hypertension I10 Morbid obesity with BMI of 45.0-49.9, adult E66.01; Z68.42 Asthma J45.20 Asthma severity: mild Asthma persistence: intermittent Asthma complication type: uncomplicated
[2021-04-29] MEDS: ALPRAZolam 0.5 mg Tablet PO ×2 (17:01→23:04)
[2021-04-29 17:38] LABS: Glucose Point of Care 279 mg/dL (70-110)
[2021-04-29] MEDS: atorvastatin 40 mg Tablet 20 MG PO (21:53)
[2021-04-29] MEDS: donepezil 5 MG Tablet 10 MG PO (21:54)
[2021-04-29] MEDS: aspirin 81 mg EC Tablet PO (21:56)
[2021-04-29] MEDS: pantoprazole DR 40 mg Tablet PO (21:57)
[2021-04-30] VITALS (11 sets, daily range): BP systolic 102–142; BP diastolic 58–88; PULSE 87–108; RESP 16–24; TEMP 36.6–36.8; O2SAT 89–94
--- NOTE | 2021-04-30 06:00 | XR_ITS ---
WS: [id number] Portable AP upright chest, 04/30/2021 Clinical Data: covid Comparison: Portable chest, 04/28/2021. Findings: The bilateral patchy pulmonary opacities have not changed. The heart size remains the same. Monitor leads are on the chest wall. XR/XR chest 1V portable [id number] Impression: No change in patchy bilateral pulmonary opacities consistent with pneumonia.
[2021-04-30 06:13] LABS: Basophils # 0.1 10^3/uL (0.0-0.1); Basophils % 0.6 %; Eosinophils # 0.3 10^3/uL (0.0-0.8); Eosinophils % 3.8 %; Hematocrit 40.9 % (37.0-47.0); Hemoglobin 12.1 g/dL (11.5-15.3); Lymphocytes # 2.2 10^3/uL (0.8-4.8); Lymphocytes % 26.9 %; Mean Corpuscular HGB Conc 29.6 g/dL (30.0-36.0); Mean Corpuscular Hemoglobin 26.7 pg (28.0-34.0); Mean Corpuscular Volume 90.3 fl (81-99); Mean Platelet Volume 10.8 fL (7.4-10.4); Monocytes # 0.9 10^3/uL (0.2-0.9); Monocytes % 11.7 %; Neutrophils # 4.47 10^3/uL (1.8-7.7); Nucleated Red Blood Cells % 0.3 %; Platelet Count 244 10^3/cmm (130-400); Red Blood Count 4.53 10^6/uL (4.1-5.3); Red Cell Distribution Width 21.5 % (12.1-15.1)
[2021-04-30 06:31] LABS: Alanine Aminotransferase 40 U/L (0-33); Albumin Level 2.5 g/dL (3.5-5.2); Alkaline Phosphatase 206 IU/L (35-105); Anion Gap 11.6 (5-19); Aspartate Amino Transferase 36 U/L (0-32); Blood Urea Nitrogen 4 mg/dL (6-20); Calcium 8.6 mg/dL (8.5-10.5); Carbon Dioxide 29 mmol/L (22-29); Chloride 99 mmol/L (98-107); Globulin 3.7 g/dL (1.3-4.6); Glomerular Filtration Rate 176.8 mL/min (90-130); Glucose 288 mg/dL (65-115); Osmolality Calculated 287 mOsm/kg (285-295); Potassium 4.6 mmol/L (3.5-5.1); Sodium 135 mmol/L (136-145); Total Bilirubin 0.6 mg/dL (0.15-1.2); Total Protein 6.2 g/dL (6.6-8.7)
[2021-04-30 06:41] LABS: Glucose Point of Care 271 mg/dL (70-110)
[2021-04-30] MEDS: duloxetine 20 mg Capsule 40 MG PO (08:21)
[2021-04-30] MEDS: docusate sodium 100 mg Capsule PO ×2 (08:21→17:02)
[2021-04-30] MEDS: polyethylene glycol 3350 Pkt 17 gm PO (08:21)
[2021-04-30] MEDS: metoprolol tartrate 50 mg Tablet PO ×2 (08:22→21:23)
[2021-04-30] MEDS: ferrous gluconate 324 mg Tablet PO ×2 (08:22→17:02)
[2021-04-30] MEDS: apixaban 5 mg Tablet 2.5 MG PO ×2 (08:22→21:24)
[2021-04-30] MEDS: benzonatate 100 mg Capsule PO ×3 (08:22→21:24)
[2021-04-30] MEDS: cetirizine 10 mg Tablet PO (08:22)
[2021-04-30] MEDS: fluticasone nasal spray 16gm Btl 2 SPRAY NASAL ×2 (08:23→17:02)
[2021-04-30 11:40] LABS: Glucose Point of Care 379 mg/dL (70-110)
[2021-04-30] MEDS: acetaminophen 325 mg Tablet 650 MG PO ×2 (12:53→22:14)
[2021-04-30] MEDS: ALPRAZolam 0.5 mg Tablet PO ×2 (12:53→22:15)
[2021-04-30 17:15] LABS: Glucose Point of Care 320 mg/dL (70-110)
--- NOTE | 2021-04-30 20:35 | PM.PN ---
Subjective Subjective: Interval history: She is doing about the same. Work with PT, but they could not get up and walk around due to desaturation with exertion. At rest she is doing well. At rest denies chest pain or pressure. Denies phlegm production. Vitals/I&O/Wt Last Vital Signs Temp 97.9 F 04/30/21 16:00 Pulse 98 04/30/21 16:00 Resp 24 H 04/30/21 16:00 BP 138/83 04/30/21 16:00 Pulse Ox 92 04/30/21 16:00 04/30/21 04/30/21 04/30/21 06:59 14:59 22:59 Intake Total 240 / 1200 Output Total 2200 / 2200 200 / 2400 Balance 240 / 1200 -2200 / -2200 -200 / -2400 Weight last 48 hrs Weight 148.189 kg Weight 147.021 kg Physical Exam Const: COMMON NORMALS: no acute distress and patient oriented x3 NUTRITIONAL APPEARANCE: obese Neck/C-Spine: COMMON NORMALS: no JVD Resp: COMMON NORMALS: normal respiratory effort and clear to auscultation bilaterally AUSCULTATION: clear to auscultation bilaterally Cardio: COMMON NORMALS: no JVD, regular rhythm, S1 normal heart sound present, S2 normal heart sound present and No murmurs present (Cardio) RHYTHM: regular rhythm HEART SOUNDS: S1 normal heart sound present and S2 normal heart sound present GI: COMMON NORMALS: Normal to inspection, nondistended, normoactive bowel sounds present, Soft to palpation and non-tender PALPATION: Yes Soft to palpation Extremity: COMMON NORMALS: no joint enlargement and no pedal edema Neuro: COMMON NORMALS: patient oriented x3 and moves all extremities Skin: COMMON NORMALS: no rashes or lesions noted GENERAL SKIN EXAM: no rashes or lesions noted Urinary Catheter Management^: Matthews: Cath Placed During This Visit: yes, but has since been removed by the nurse Reason for Continuing Indwelling Catheter: Decision to DC Catheter Urinary Catheter Date of Insertion: 03/23/21 Urinary Catheter Time of Insertion: 16:47 Date Urinary Catheter Removed: 04/02/21 Time Urinary Catheter Discontinued: 16:00 Data : 04/30/21 05:57 04/30/21 05:57 A&P Assessment and plan (1) COVID-19: At rest the same FiO2 requirement, 12 L. Desaturates easily with exertion. Gets dyspneic. Intolerant of exercise. Continues attempts to work with physical therapy. She is working on application for her to proceed to a lower level of care, continue rehabilitation, weaning off oxygen. Discussed with her briefly also consideration of possible tracheostomy given severely limiting exertional hypoxia. Reassess D-dimer. Does not have so far evidence of return of bacterial superinfection. Monitor for changes. Continue attempts to wean down on oxygen support. Continue to mobilize. Continue Advair, Spiriva, continue supportive care. Completed 7-day course of Levaquin. Has been continued on Eliquis. Status: Acute (2) ARDS (adult respiratory distress syndrome): Status: Acute (3) Pseudomonas pneumonia: Completed 7-day course of Levaquin. Monitor. Status: Acute (4) Essential (primary) hypertension: Status: Chronic (5) Morbid obesity with BMI of 45.0-49.9, adult: Status: Acute (6) Asthma: Continue pulmonary toilet Status: Chronic Qualifiers: Asthma severity: mild Asthma persistence: intermittent Asthma complication type: uncomplicated Qualified Code(s): J45.20 - Mild intermittent asthma, uncomplicated Additional A&P Information Yeast cystitis: Completed 7 days of Diflucan. Anxiety Continue home dose of Cymbalta every morning, donepezil nightly. Continue PRN klonopin Uncontrolled diabetes 1 mellitus: HbA1c 12.9. Increase Lantus dose to 125 units twice daily. Transaminitis. Improving. Hepatitis panel negative. Abdominal ultrasound demonstrates likely cyst. AFP without significant elevation Labs stable Klebsiella UTI: Treated Chronic pain syndrome Pain pump Ultram as needed Attestations Medical Necessity Statement*: Continue admission for management of hypoxic respiratory failure with high oxygen requirement, continued severe desaturation with low exertion, de-escalation of oxygen support, mobilization, reassessment of D-dimer for possible complicating factor with recent severe COVID-19 pneumonia. Disposition planning and arrangements. Coding Level of Care Code Acute Dairy Manager for [facility] Diagnoses COVID-19 U07.1 ARDS (adult respiratory distress syndrome) J80 Pseudomonas pneumonia J15.1 Essential (primary) hypertension I10 Morbid obesity with BMI of 45.0-49.9, adult E66.01; Z68.42 Asthma J45.20 Asthma severity: mild Asthma persistence: intermittent Asthma complication type: uncomplicated
[2021-04-30 20:56] LABS: Glucose Point of Care 264 mg/dL (70-110)
[2021-04-30] MEDS: aspirin 81 mg EC Tablet PO (21:21)
[2021-04-30] MEDS: atorvastatin 40 mg Tablet 20 MG PO (21:22)
[2021-04-30] MEDS: pantoprazole DR 40 mg Tablet PO (21:26)
[2021-04-30] MEDS: donepezil 5 MG Tablet 10 MG PO (21:26)
[2021-05-01] VITALS (10 sets, daily range): BP systolic 122–140; BP diastolic 76–89; PULSE 72–99; RESP 16–20; TEMP 36.5–37.1; O2SAT 88–94
[2021-05-01 06:33] LABS: Basophils # 0.1 10^3/uL (0.0-0.1); Basophils % 0.8 %; Eosinophils # 0.3 10^3/uL (0.0-0.8); Eosinophils % 3.3 %; Hematocrit 42.2 % (37.0-47.0); Hemoglobin 12.7 g/dL (11.5-15.3); Lymphocytes # 2.3 10^3/uL (0.8-4.8); Lymphocytes % 29.5 %; Mean Corpuscular HGB Conc 30.1 g/dL (30.0-36.0); Mean Corpuscular Hemoglobin 26.4 pg (28.0-34.0); Mean Corpuscular Volume 87.7 fl (81-99); Mean Platelet Volume 11.1 fL (7.4-10.4); Monocytes # 0.9 10^3/uL (0.2-0.9); Monocytes % 11.2 %; Neutrophils # 4.28 10^3/uL (1.8-7.7); Neutrophils % 54.3 %; Nucleated Red Blood Cells % 0 %; Platelet Count 286 10^3/cmm (130-400); Red Blood Count 4.81 10^6/uL (4.1-5.3); Red Cell Distribution Width 21.4 % (12.1-15.1); White Blood Count 7.9 10^3/uL (4.0-10.0)
[2021-05-01 06:48] LABS: D Dimer 2.85 ug/mIFEU (0-0.59)
[2021-05-01 06:48] LABS: Glucose Point of Care 289 mg/dL (70-110)
[2021-05-01 06:50] LABS: Alanine Aminotransferase 36 U/L (0-33); Albumin Level 2.9 g/dL (3.5-5.2); Alkaline Phosphatase 196 IU/L (35-105); Anion Gap 14.1 (5-19); Aspartate Amino Transferase 25 U/L (0-32); Blood Urea Nitrogen 4 mg/dL (6-20); Calcium 8.6 mg/dL (8.5-10.5); Carbon Dioxide 29 mmol/L (22-29); Chloride 97 mmol/L (98-107); Globulin 3.8 g/dL (1.3-4.6); Glomerular Filtration Rate 176.8 mL/min (90-130); Glucose 287 mg/dL (65-115); Osmolality Calculated 289 mOsm/kg (285-295); Potassium 4.1 mmol/L (3.5-5.1); Sodium 136 mmol/L (136-145); Total Bilirubin 0.5 mg/dL (0.15-1.2); Total Protein 6.7 g/dL (6.6-8.7)
[2021-05-01] MEDS: ondansetron 2 mg/ML SDV 2 mL 4 MG IVP (07:14)
[2021-05-01] MEDS: docusate sodium 100 mg Capsule PO ×2 (08:29→17:07)
[2021-05-01] MEDS: ferrous gluconate 324 mg Tablet PO ×2 (08:29→17:07)
[2021-05-01] MEDS: metoprolol tartrate 50 mg Tablet PO ×2 (08:29→21:02)
[2021-05-01] MEDS: duloxetine 20 mg Capsule 40 MG PO (08:29)
[2021-05-01] MEDS: benzonatate 100 mg Capsule PO ×3 (08:29→21:02)
[2021-05-01] MEDS: cetirizine 10 mg Tablet PO (08:29)
[2021-05-01] MEDS: apixaban 5 mg Tablet 2.5 MG PO (08:29)
[2021-05-01] MEDS: polyethylene glycol 3350 Pkt 17 gm PO (08:29)
[2021-05-01] MEDS: fluticasone nasal spray 16gm Btl 2 SPRAY NASAL ×2 (08:36→17:07)
[2021-05-01] MEDS: ALPRAZolam 0.5 mg Tablet PO ×2 (09:39→21:13)
[2021-05-01] MEDS: acetaminophen 325 mg Tablet 650 MG PO ×2 (09:39→21:13)
--- NOTE | 2021-05-01 14:04 | P.PN_ITS ---
Subjective Subjective: Interval history: She denies any new changes today. She states that her anticoagulation was previously changed to tablet form due to multiple bruises on her lower abdomen. Vitals/I&O/Wt Last Vital Signs Temp 98.4 F 05/01/21 12:00 Pulse 72 05/01/21 12:00 Resp 17 05/01/21 12:00 BP 127/78 05/01/21 12:00 Pulse Ox 94 05/01/21 12:00 04/30/21 05/01/21 05/01/21 22:59 06:59 14:59 Intake Total 480 / 480 Output Total 200 / 2400 Balance -200 / -2400 480 / -1920 Weight last 48 hrs Weight 147.009 kg Weight 148.189 kg Physical Exam Const: COMMON NORMALS: no acute distress and patient oriented x3 NU TRITIONAL APPEARANCE: obese HENMT: COMMON NORMALS: oropharynx normal Neck/C-Spine: COMMON NORMALS: no JVD Resp: COMMON NORMALS: normal respiratory effort and clear to auscultation bilaterally AUSCULTATION: clear to auscultation bilaterally Cardio: COMMON NORMALS: no JVD, regular rhythm, S1 normal heart sound present, S2 normal heart sound present and No murmurs present (Cardio) RHYTHM: regular rhythm HEART SOUNDS: S1 normal heart sound present and S2 normal heart sound present GI: COMMON NORMALS: Normal to inspection, nondistended, normoactive bowel sounds present, Soft to palpation and non-tender PALPATION: Yes Soft to palpation Extremity: COMMON NORMALS: no joint enlargement and no pedal edema Neuro: COMMON NORMALS: patient oriented x3 and moves all extremities Skin: COMMON NORMALS: no rashes or lesions noted GENERAL SKIN EXAM: no rashes or lesions noted Urinary Catheter Management^: Matthews: Cath Placed During This Visit: yes, but has since been removed by the nurse Reason for Continuing Indwelling Catheter: Decision to DC Catheter Urinary Catheter Date of Insertion: 03/23/21 Urinary Catheter Time of Insertion: 16:47 Date Urinary Catheter Removed: 04/02/21 Time Urinary Catheter Discontinued: 16:00 Data : 05/01/21 06:15 05/01/21 06:15 A&P Assessment and plan (1) COVID-19: Noted increase in D-dimer today up to 2.85. Discussed with her she is currently on Eliquis, dosing is 2.5 mg twice daily. Discussed with the low-dose is unclear regarding whether this may be sufficiently effective. She declines to consider additional parenteral anticoagulation given multiple bruises on her abdomen. However, discussed with her perhaps we can consider changing to Xarelto once daily 10 mg as there is more experience with this anticoagulant and extended prophylaxis with Covid. She is agreeable. At rest the same FiO2 requirement, 12 L. Desaturates easily with exertion. Gets dyspneic. Intolerant of exercise. Continues attempts to work with physical therapy. She is working on application for her to proceed to a lower level of care, continue rehabilitation, weaning off oxygen. Discussed with her briefly also consideration of possible tracheostomy given severely limiting exertional hypoxia. Reassess D-dimer. Does not have so far evidence of return of bacterial superinfection. Monitor for changes. Continue attempts to wean down on oxygen support. Continue to mobilize. Continue Advair, Spiriva, continue supportive care. Completed 7-day course of Levaquin. Status: Acute (2) ARDS (adult respiratory distress syndrome): Status: Acute (3) Pseudomonas pneumonia: Completed 7-day course of Levaquin. Monitor. Status: Acute (4) Essential (primary) hypertension: Status: Chronic (5) Morbid obesity with BMI of 45.0-49.9, adult: Status: Acute (6) Asthma: Continue pulmonary toilet Status: Chronic Qualifiers: Asthma severity: mild Asthma persistence: intermittent Asthma complication type: uncomplicated Qualified Code(s): J45.20 - Mild intermittent asthma, uncomplicated Additional A&P Information Yeast cystitis: Completed 7 days of Diflucan. Anxiety Continue home dose of Cymbalta every morning, donepezil nightly. Continue PRN klonopin Uncontrolled diabetes 1 mellitus: HbA1c 12.9. Increase Lantus dose to 130 units twice daily. Transaminitis. Improving. Hepatitis panel negative. Abdominal ultrasound demonstrates likely cyst. AFP without significant elevation Labs stable Klebsiella UTI: Treated Chronic pain syndrome Pain pump Ultram as needed Attestations Medical Necessity Statement*: Continue admission due to hypoxic respiratory failure, following severe COVID-19, pseudomonal pneumonia, adjustment of anticoagulation with rising D-dimer, weaning off oxygen, mobilization, disposition planning and arrangements. Coding Level of Care Code Acute Melter Supervisor Electric Arc Furnace for [facility] Diagnoses COVID-19 U07.1 ARDS (adult respiratory distress syndrome) J80 Pseudomonas pneumonia J15.1 Essential (primary) hypertension I10 Morbid obesity with BMI of 45.0-49.9, adult E66.01; Z68.42 Asthma J45.20 Asthma severity: mild Asthma persistence: intermittent Asthma complication type: uncomplicated
--- NOTE | 2021-05-01 15:13 | PC.CHAP ---
Pastoral Care Encounter/Spiritual Assessment Type of Contact [] Declined turning machine set up operator visit [] Patient/Family/Request visit [] Outpatient visit [xx] Follow-up visit [] Physician referral [] Code/Alert [xx] Routine visit [] Staff referral [] Actively dying [] Patient sleeping [] Family support [] [] Out of room [] Palliative care [] [] Receiving care in room [] Pre-surgical visit [] Trauma [xx] Long length of stay [] ICU visit [] Other: Relational/Emotional Strength [xx] Patient feels connected with others/family/visitors/staff [] Distress [] Loneliness/isolation [] Abandonment Spirituality of Patient [xx] Person of Barbara [xx] Attends Buddhism of their Barbara [xx] Believes in Prayer [xx] Reads Bible or Taoism materials [] There are Spiritual issues to be addressed Basting Cleaner 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 [xx] Prayer [xx] Active listening [xx] Non-anxious presence [] Spiritual/emotional support [] Crisis/trauma care [] Spiritual counseling [] Bereavement support [] Provided bereavement packet [xx] Provided Bible/devotional materials [] Provided toy/stuffed animal, coloring book to patient or family member [] Provided Communion [] Anointing/[place] [] Salvation [xx] Completed spiritual assessment [] Other: Impact on Illness or Injury [] Angry [] Fearful [] Anxious [] Often cries [] Exhaustion [xx] Unable to work [xx] Unable to attend baptist [xx] Unable to walk/stand [] Unable to read [] Unable to drive [] Unable to eat/drink [] Unable to sleep [] Unable to be with family [] Patient intubated [] Other: Summary Patient still recovering from covid-10 after-effects. She is currently stressed from paperwork, scheduling difficulties, attitudes of others and other areas of little thing that add up and are getting her down mentally and emotionally. She wants to go home. Time spent with patient 7 minutes
--- NOTE | 2021-05-01 15:24 | PC.NURSE ---
Patient's spouse and 10 yo daughter presented to visit at the main entrance to [facility]. I was contacted by [facility] [employer] to provide an approval for a visitor under the age of 18. I spoke with Onesimo Baez RN Charge Nurse and she states that Dr. Catalan had made an exception for this visitor several days ago and that the visitor has been coming in for a few days now. I called and spoke with Dr. Zuñiga and he states that he understands that the exception has been made for several days, however we agree that the decision should be made by [facility] since COVID-19 positive patients are now on Med/Surg d/t 2A closing. I called and spoke with Armida Raymond RN core oven tender and informed her of the above. She verbalizes understanding and states that we may continue to allow this 10 yo visitor, but it would need to be short visits with a limit of 30 minutes each. I called and spoke with Dr. Zuñiga and informed him of this and he is in agreement. When the patient's spouse and daughter came up to visit, I went in with Max Vazquez, [facility] [employer] and discussed with the patient, her spouse, and her daughter extensively on the risks of having a visitor on the Med/Surg unit with increased COVID-19 exposure. They verbalize understanding and state they will keep their visits to 30 minutes or less with the 10 yo here. They are understanding and deny any further questions or concerns at this time.
[2021-05-01] MEDS: rivaroxaban 10 mg Tablet PO (17:07)
--- NOTE | 2021-05-01 20:45 | PC.NURSE ---
ELECTRIC ARC FURNACE OPERATOR reported accucheck result as 295.
--- NOTE | 2021-05-01 20:53 | PC.NURSE ---
Reviewed insulin dosage amounts with charge nurse Judit, confirming they are correct
[2021-05-01] MEDS: atorvastatin 40 mg Tablet 20 MG PO (21:01)
[2021-05-01] MEDS: donepezil 5 MG Tablet 10 MG PO (21:02)
[2021-05-01] MEDS: aspirin 81 mg EC Tablet PO (21:02)
[2021-05-01] MEDS: pantoprazole DR 40 mg Tablet PO (21:03)
[2021-05-02] VITALS (8 sets, daily range): BP systolic 118–152; BP diastolic 64–84; PULSE 93–103; RESP 16–20; TEMP 36.4–36.9; O2SAT 87–92
--- NOTE | 2021-05-02 00:26 | PC.NURSE ---
Notified mariaelena Zhang, of patient's oxygen saturation levels. No new orders received
[2021-05-02 07:17] LABS: Basophils # 0.1 10^3/uL (0.0-0.1); Basophils % 0.6 %; Eosinophils # 0.3 10^3/uL (0.0-0.8); Eosinophils % 3.8 %; Hematocrit 41.2 % (37.0-47.0); Hemoglobin 12.3 g/dL (11.5-15.3); Lymphocytes # 2.4 10^3/uL (0.8-4.8); Lymphocytes % 26.8 %; Mean Corpuscular HGB Conc 29.9 g/dL (30.0-36.0); Mean Corpuscular Hemoglobin 26.2 pg (28.0-34.0); Mean Corpuscular Volume 87.8 fl (81-99); Mean Platelet Volume 11.3 fL (7.4-10.4); Monocytes % 10.9 %; Neutrophils # 5.16 10^3/uL (1.8-7.7); Neutrophils % 57.5 %; Nucleated Red Blood Cells % 0 %; Platelet Count 300 10^3/cmm (130-400); Red Blood Count 4.69 10^6/uL (4.1-5.3); Red Cell Distribution Width 21.2 % (12.1-15.1)
[2021-05-02 07:44] LABS: Alanine Aminotransferase 32 U/L (0-33); Albumin Level 2.7 g/dL (3.5-5.2); Alkaline Phosphatase 199 IU/L (35-105); Anion Gap 15.7 (5-19); Aspartate Amino Transferase 25 U/L (0-32); Blood Urea Nitrogen 4 mg/dL (6-20); Calcium 8.1 mg/dL (8.5-10.5); Carbon Dioxide 30 mmol/L (22-29); Chloride 97 mmol/L (98-107); Globulin 3.7 g/dL (1.3-4.6); Glomerular Filtration Rate 176.8 mL/min (90-130); Glucose 286 mg/dL (65-115); Osmolality Calculated 293 mOsm/kg (285-295); Potassium 4.7 mmol/L (3.5-5.1); Sodium 138 mmol/L (136-145); Total Bilirubin 0.6 mg/dL (0.15-1.2); Total Protein 6.4 g/dL (6.6-8.7)
[2021-05-02] MEDS: ferrous gluconate 324 mg Tablet PO ×2 (09:36→17:28)
[2021-05-02] MEDS: docusate sodium 100 mg Capsule PO ×2 (09:36→17:28)
[2021-05-02] MEDS: cetirizine 10 mg Tablet PO (09:36)
[2021-05-02] MEDS: benzonatate 100 mg Capsule PO ×2 (09:36→15:24)
[2021-05-02] MEDS: polyethylene glycol 3350 Pkt 17 gm PO (09:36)
[2021-05-02] MEDS: duloxetine 20 mg Capsule 40 MG PO (09:36)
[2021-05-02] MEDS: metoprolol tartrate 50 mg Tablet PO (09:37)
[2021-05-02] MEDS: fluticasone nasal spray 16gm Btl 2 SPRAY NASAL ×2 (09:38→17:28)
--- NOTE | 2021-05-02 13:14 | PM.PN ---
Subjective Subjective: Interval history: On entering the room she tells me that she has ruled out acute and would like to proceed to [facility] swing bed. Would like to go tomorrow, however, stating that she would like to take the afternoon today to rest, then would like to take a bath, then she has a lot of stuff to pack and will be very tired doing so. I asked her not to overexert herself, instead saying that staff would help her with packing and any additional personal hygiene she may need to perform. Asked her to avoid overexertion, and that she does not have to do things on her own. She responds I do not want people wiping my ass for me . I am never coming back to this hospital! . Discussed with her that she is in difficult condition currently, with poor exercise tolerance, and will require prolonged rehabilitation to achieve prior level of function. Encouraged her again to allow staff to help her with her needs. She then states you do not care, you just want people to come in here grab my stuff, wipe my ass and want me out . You just care about your dollars . Discussed with her again that this is not the case. From my perspective concern is that in her vulnerable state she did not sustain additional hospital-acquired infection, recently with multidrug-resistant organisms noted in the hospital, especially her having just had Pseudomonal pneumonia, and given she has been stable to proceed to rehabilitation. Discussed with her that if preparations for discharge are not complete by today there is certainly no problem with her staying overnight until everything is arranged. However, we would like to get started as from what she is saying there is still a bit to do before she goes. She angrily jumps over the bed, screaming I am going to get up right now and go! and refused to be examined. I encouraged her to stay resting in bed and let staff help take care of her needs. Vitals/I&O/Wt Last Vital Signs Temp 97.6 F 05/02/21 11:12 Pulse 103 H 05/02/21 11:12 Resp 20 H 05/02/21 11:12 BP 118/69 05/02/21 11:12 Pulse Ox 89 L 05/02/21 11:12 05/01/21 05/02/21 05/02/21 22:59 06:59 14:59 Intake Total 240 / 240 360 / 360 Output Total 1000 / 1000 Balance 240 / 240 -1000 / -760 360 / 360 Weight last 48 hrs Weight 148.234 kg Weight 147.009 kg Physical Exam Narrative: EXAM NARRATIVE: She is angry, speaking loudly and hostile manner, shifting about rapidly and aggressively in bed. I attempted to reassure and encourage her. She refuses to be examined. Data : 05/02/21 06:28 05/02/21 06:28 A&P Assessment and plan (1) COVID-19: Overall improved with limitation to exertion due to desaturation. Continued rehabilitation has been set up for her at [facility] as she has declined to go to long-term facility. She is accepted there today and may discharge there today or tomorrow depending on whether all preparations can be achieved today. She remains currently on 12 L of oxygen. Likely will need prolonged rehabilitation. Continue to monitor for recurrence bacterial superinfection. Continue to mobilize and wean down on oxygen as tolerating. History is per discussion transitioned over to Xarelto to continue prolonged VTE prophylaxis given limited mobility and elevated risk of VTE associated with COVID-19. Continue Advair, Spiriva, continue supportive care. Status: Acute (2) ARDS (adult respiratory distress syndrome): Status: Acute (3) Pseudomonas pneumonia: Completed 7-day course of Levaquin. Monitor. Status: Acute (4) Essential (primary) hypertension: Status: Chronic (5) Morbid obesity with BMI of 45.0-49.9, adult: Status: Acute (6) Asthma: Continue pulmonary toilet Status: Chronic Qualifiers: Asthma severity: mild Asthma persistence: intermittent Asthma complication type: uncomplicated Qualified Code(s): J45.20 - Mild intermittent asthma, uncomplicated Additional A&P Information Yeast cystitis: Completed 7 days of Diflucan. Anxiety Continue home dose of Cymbalta every morning, donepezil nightly. Continue PRN klonopin Uncontrolled diabetes 1 mellitus: HbA1c 12.9. Increase Lantus dose to 130 units twice daily. Transaminitis. Improving. Hepatitis panel negative. Abdominal ultrasound demonstrates likely cyst. AFP without significant elevation Labs stable Klebsiella UTI: Treated Chronic pain syndrome Pain pump Ultram as needed Attestations Medical Necessity Statement*: Continue admission for arrangements to proceed to swing bed for continued rehabilitation, weaning off oxygen following severe COVID-19, continue skilled care and therapy. Coding Level of Care Code Acute Stamping Operator for Chg Fwd Diagnoses COVID-19 U07.1 ARDS (adult respiratory distress syndrome) J80 Pseudomonas pneumonia J15.1 Essential (primary) hypertension I10 Morbid obesity with BMI of 45.0-49.9, adult E66.01; Z68.42 Asthma J45.20 Asthma severity: mild Asthma persistence: intermittent Asthma complication type: uncomplicated
[2021-05-02] MEDS: ALPRAZolam 0.5 mg Tablet PO (15:24)
[2021-05-02] MEDS: acetaminophen 325 mg Tablet 650 MG PO (15:24)
[2021-05-02] MEDS: rivaroxaban 10 mg Tablet PO (17:28)
--- NOTE | 2021-05-03 07:48 | PC.NURSE ---
05/02/21: PT HAD A GOOD DAY YESTERDAY. PT DID NOT REALLY HAVE ANY COMPLAINTS OF PAIN. PT DID DECENT GETTING UP TO BEDSIDE COMMODE WELL GATHERING BELONGINGS. PT HAD A LARGE BOWEL MOVEMENT. PT TO DISCHARGE TO [facility] SWING BED. REPORT CALLED TO CARLOZ CASTRO AT [facility] AT 1900 LAST NIGHT BY THIS NURSE. PT'S IV TO REMAIN IN PLACE PER NURSE FROM [facility]. PT SAFELY LEFT HOSPITAL WITH AMBULANCE PERSONNEL AT AROUND 1930 YESTERDAY.
[2021-05-03 07:58] LABS: Glucose Point of Care 346 mg/dL (70-110)
[2021-05-03 08:06] LABS: Glucose Point of Care 351 mg/dL (70-110)
[2021-05-03 08:06] LABS: Glucose Point of Care 342 mg/dL (70-110)
[2021-05-03 08:08] LABS: Glucose Point of Care 366 mg/dL (70-110)
[2021-05-03 08:08] LABS: Glucose Point of Care 295 mg/dL (70-110)
[2021-05-03 08:08] LABS: Glucose Point of Care 288 mg/dL (70-110)
--- NOTE | 2021-05-06 08:00 | P.DS_ITS ---
Discharge Providers Date of Admission: 03/23/21 10:16 Date of Discharge: May 06, 2021 Attending Provider at Admission: Isrrael Noble MD Attending Provider at Discharge: Lucio Zuñiga Primary Care Provider: Sujatha Giles MD Diagnoses at Discharge Discharge Diagnosis (1) COVID-19: (2) ARDS (adult respiratory distress syndrome): (3) Pseudomonas pneumonia: (4) Essential (primary) hypertension: (5) Morbid obesity with BMI of 45.0-49.9, adult: (6) Asthma: Qualifiers: Asthma severity: mild Asthma persistence: intermittent Asthma complication type: uncomplicated Qualified Code(s): J45.20 - Mild intermittent asthma, uncomplicated Reason for Visit Reason for Visit: cough, N/V, weak Hospital Course Hospital Course Keily Foley is a 40 year old female with PMH asthma type 1 diabetes mellitus, depression, hypertension, fibromyalgia, GERD, hyperlipidemia presented to ED on 03/23/2021 with nausea, vomiting, loose stools and significant shortness of breath. Patient reported being sick for 1 week but her dyspnea was worse last 2 days. Also complained of nonproductive cough with some streaks of blood occasionally. Similar symptoms in family members but they got better. Patient is not vaccinated to Covid. She is admitted to the hospital for further management of ARDS secondary COVID- 19 pneumonia. She she was placed on high flow 60 L 90% and started on 5-day protocol remdesivir, and received dexamethasone 6 mg daily, and 1 dose Tocilizumab. Because patient requiring high oxygen supplementation going as hi gh as 60 L 90% heated high flow and intermittently going down to 80% on the same patient was transferred to ICU and pulmonology was consulted. Her hospital stay was complicated by her developing confusion and anxiety for which she was started on Precedex drip. Patient never required mechanical ventilation. Because she remained stable on oxygen supplementation she was transferred to medical floor 1000 supplementation requirements were down to 40 L 60%. During hospitalization her blood cultures, MRSA swab, bacterial antigen remain negative. Her hospital stay was further complicated by her requiring high insulin requirements going as high as Lantus of 120 units twice daily with 25 units of subcu Humalog 3 times a day along with correctional insulin sliding scale. Patient has had a prolonged hospitalization going over more than 4 weeks and has continued to require heated high flow and currently requiring up to 40% 35 L saturating 88 to 90%. Given the above further work-up was done and ruled out pulmonary embolism but repeat sputum culture grew Pseudomonas for which she has been started on oral antibiotics with Augmentin and Levaquin as per the culture sensitivities. Her urine culture grew Gaby albicans. On admission patient's urine was positive for Klebsiella. Patient has received multiple antibiotic course with Zosyn up to March 30 and imipenem up to April 05. Patient also complaint of thrush and urine culture was positive for Gaby albicans so she is on fluconazole so 7-day course. During her chest imaging patient was found to have an echogenic lesion in the li hernandez for which abdominal ultrasound was done and it is recommended for patient to have contrast enhanced CT abdomen pelvis with liver protocol once medically stable to rule out cavernous hemangioma versus metastatic disease or liver neoplasm. She had remained requiring 12L of supplemental oxygen. Due to desaturation with activity, ADLs were limited. Given high oxygen supplementation for a prolonged course even after patient participating in bed in bed with incentive spirometry and flutter valve she requires further extensive rehabilitation weaning oxygen support as tolerating, which has been slow so far. After discussing different options she declined to go to SNF, and being unable yet to return home preferring instead to discharge to [facility] where she was kindly accepted and transferred on 05/02. Physical Exam Narrative: EXAM NARRATIVE: Please see exam from progress note. Urinary Catheter Management^: Matthews: Cath Placed During This Visit: yes, but has since been removed by the nurse Reason for Continuing Indwelling Catheter: Decision to DC Catheter Urinary Catheter Date of Insertion: 03/23/21 Urinary Catheter Time of Insertion: 16:47 Date Urinary Catheter Removed: 04/02/21 Time Urinary Catheter Discontinued: 16:00 Discharge Data Data Completed and Pending: Completed Studies During Hospitalization Category Date Time Status CT angio chest PE protcl 89392 Urge nt Cat Scan 03/23/21 12:[address] chest wo con 7 1250 Urgent Cat Scan 04/21/21 08:42 Completed XR chest 1V blanca ble 82137 Q48H Exams 04/26/21 06:00 Completed XR chest 1V blanca ble 28629 Q48H Exams 04/28/21 06:00 Completed XR chest 1V blanca ble 41065 Q48H Exams 04/30/21 06:00 Completed XR chest 1V blanca ble [id number] Routine Exams 03/30/21 07:00 Completed XR chest 1V blanca ble 30698 Routine Exams 04/01/21 07:00 Completed XR chest 1V blanca ble 18226 Routine Exams 04/02/21 07:00 Completed XR chest 1V blanca ble 10301 Routine Exams 04/13/21 07:00 Completed XR chest 1V blanca ble 12012 Stat Exams 03/23/21 07:33 Completed CV. echo complete * [id number] Routine Ultrasound 03/30/21 11:49 Completed [place] abdomen limite d [id number] Routine Ultrasound 03/24/21 04:00 Completed Vitals: Last Vital Signs Temp 98.5 F 05/02/21 20:10 Pulse 100 05/02/21 20:10 Resp 16 05/02/21 20:10 BP 129/81 05/02/21 20:10 Pulse Ox 89 L 05/02/21 20:10 Discharge Plan Discharge Patient Disposition: Xfer SNF Condition: Stable Prescriptions: New metoprolol tartrate 50 mg Tablet 50 mg PO BID@0900,2100 Qty: 60 RF: 0 Xarelto 10 mg Tablet 10 mg PO Q24H Qty: 31 RF: 0 ferrous gluconate 324 mg (37.5 mg iron) Tablet 324 mg PO EVERY OTHER DAY Qty: 15 RF: 0 insulin lispro 100 unit/mL insulin pen See Rx Instructions .ROUTE .COMPLEX Qty: 15 RF: 0 Continued aspirin 81 mg tablet,delayed release (DR/EC) 81 mg PO BEDTIME RF: 0 insulin aspart U-100 [Novolog Flexpen U-100 Insulin] 100 unit/mL (3 mL) insulin pen See Rx Instructions SUBCUT .COMPLEX MDD 210 Qty: 90 RF: 2 atorvastatin 20 mg tablet 20 mg PO BEDTIME RF: 0 cetirizine 10 mg tablet 10 mg PO DAILY RF: 0 ProAir HFA 90 mcg/actuation HFA aerosol inhaler 1 puff INHALATION Q6H PRN (Reason: shortness of breath or wheezing) RF: 0 Tylenol Extra Strength 500 mg Tablet 1,000 mg PO PRN RF: 0 ibuprofen 200 mg Tablet 600 mg PO PRN RF: 0 Flovent HFA 220 mcg/actuation HFA aerosol inhaler 2 puff INHALATION Q12H RF: 0 furosemide 20 mg tablet 20 mg PO DAILY PRN (Reason: Edema) RF: 0 polyethylene glycol 3350 17 gram/dose powder 17 g PO DAILY PRN (Reason: Constipation) RF: 0 duloxetine 40 mg capsule,delayed release(DR/EC) 40 mg PO DAILY RF: 0 ondansetron HCl 8 mg tablet 8 mg PO Q8H PRN (Reason: Nausea And Vomiting) RF: 0 omeprazole 20 mg capsule,delayed release(DR/EC) 40 mg PO BEDTIME RF: 0 Bupivacaine 10.66mg/Ml See Rx Instructions .ROUTE .COMPLEX RF: 0 Morphine 8mg/8ml Con See Rx Instructions .ROUTE .COMPLEX RF: 0 Changed baclofen 10 mg tablet 10 mg PO TID PRN (Reason: Spasms) Qty: 0 RF: 0 Levemir FlexTouch U-100 Insuln 100 unit/mL (3 mL) insulin pen 130 unit SUBCUT BID 30 Days Qty: 75 RF: 3 Discontinued atenolol 25 mg tablet 25 mg PO QAM RF: 0 lisinopril 40 mg tablet 40 mg PO BEDTIME RF: 0 No Action (DME) blood-glucose meter [Blood Glucose Monitoring] Kit See Rx Instructions .ROUTE .MEDSUPPLY Qty: 1 RF: 0 (DME) Blood Glucose Test Strip See Rx Instructions .ROUTE .MEDSUPPLY Qty: 100 RF: 1 (DME) Easy Touch Pen Needle 30 gauge x 5/16 needle See Rx Instructions .ROUTE .MEDSUPPLY Qty: 100 RF: 11 Discharge Orders: Discharge Order (Routine); Ordered 05/02/21 Ordered By: Lucio Zuñiga Referrals: SNF, provider [Other] - 4-7 days Sujatha Giles MD [Primary Care Provider] - Discharge Diet: Diabetic Discharge Activity: As per PT/OT instructions and Oxygen as instructed Patient Instructions: Iron Supplements (By mouth), Metoprolol (By mouth), Insulin Lispro (Injection), Rivaroxaban (By mouth), Opioid Safety, Pneumonia - Viral Activity Restrictions/Additional Instructions: Continue to mobilize with therapy with oxygen monitoring. Wean down oxygen support as tolerating. Maintain fall precautions. Continue to monitor for any changes in her condition, any development of superimposed bacterial infection. Please refer for contrast CT abdomen pelvis liver protocol to also assess the echogenic liver lesion seen on ultrasound, 2.8 x 2.5 x 2.8 cm with suspicious thin hypoechoic halo. Differential considerations include cavernous hemangioma and exclude metastatic disease or liver neoplasm. Discharge Attestations Time Spent in Discharge Care*: greater than 30 min Status at Discharge: Cognitive status at discharge: cognitively intact , Behavioral status at discharge: cooperative , Functional status at discharge: other assisted ambulation Overall status at discharge: patient is not back to baseline Quality Metrics Clinical Quality Measures During this hospital stay, did patient experience: None Coding Level of Care Code Acute Chg FW DC note Diagnoses COVID-19 U07.1 ARDS (adult respiratory distress syndrome) J80 Pseudomonas pneumonia J15.1 Essential (primary) hypertension I10 Morbid obesity with BMI of 45.0-49.9, adult E66.01; Z68.42 Asthma J45.20 Asthma severity: mild Asthma persistence: intermittent Asthma complication type: uncomplicated
== END 2021-05-02 20:10 | disposition skilled nursing facility (03) | DRG 177 ==
LOC: ER 12:10 → ICU 15:09 → MS 2A 03-27 21:40 → MEDSURG 04-22 23:06
PROVIDERS: Family Medicine; Hospitalist; Student in an Organized Health Care Education/Training Program; Admitting Provider Internal Medicine; Emergency Provider Emergency Medicine; PCP Family Medicine; Visit Provider Internal Medicine
DX: U07.1 COVID-19 (principal); J80 Acute respiratory distress syndrome; J15.1 Pneumonia due to Pseudomonas; J45.901 Unspecified asthma with (acute) exacerbation; Z68.42 Body mass index [BMI] 45.0-49.9, adult; K21.9 Gastro-esophageal reflux disease without esophagitis; M79.7 Fibromyalgia; E10.8 Type 1 diabetes mellitus with unspecified complications; E78.5 Hyperlipidemia, unspecified; B37.9 Candidiasis, unspecified; E66.01 Morbid (severe) obesity due to excess calories; G89.4 Chronic pain syndrome; Z90.49 Acquired absence of other specified parts of digestive tract; Z98.51 Tubal ligation status; Z83.3 Family history of diabetes mellitus; Z82.49 Family history of ischemic heart disease and other diseases of the circulatory system; Z79.82 Long term (current) use of aspirin; Z86.59 Personal history of other mental and behavioral disorders
CPT/HCPCS: 36415; 36416; 36600; 51702; 71045; 71250; 71275; 76705; 80048; 80051; 80053; 80074; 81001; 82105; 82330; 82550; 82728; 82803; 82805; 82962; 83036; 83540; 83550; 83605; 83735; 83880; 84100; 84145; 84443; 85025; 85378; 85610; 85651; 85730; 86140; 86403; 86606; 86612; 86628; 86635; 86698; 87040; 87070; 87077; 87086; 87106; 87107; 87186; 87205; 87426; 87449; 87635; 87641; 93005; 93306; 94640; 94660; 96365; 96367; 96372; 96375; 97110; 97116; 97162; 97163; 97530; 99291; J0743; J1100; J1650; J1815; J1940; J2060; J2405; J2543; J3262; J3490; J3535; J7030; J7050; J7626; J8540; Q9967

== ENCOUNTER 2023-07-25 06:04 | Emergency (ER) | payer MEDICAID, SELFPAY ==
[2023-07-25 06:05] VITALS: BP 170/71; PULSE 79; RESP 18; TEMP 36.5; O2SAT 92; BMI 38.5
--- NOTE | 2023-07-25 06:08 | PC.NURSE ---
pt glucose POC 91 @7013
--- NOTE | 2023-07-25 06:10 | ED_ITS ---
HPI - General Adult General: Chief complaint: General Medical Stated complaint: LOW BLOOD SUGAR Time Seen by Provider: 07/25/23 06:09 Source: patient Mode of arrival: EMS History of Present Illness: 42-year-old female presents emergency room via EMS with complaints of hypoglycemia. Her Dexcom at home read her blood sugar got down to 68 she said she was nauseous vomited several times and was diaphoretic. She was unable to keep any antiemetics down. EMS was called and she was given Zofran in route she is feeling better no glucose on arrival here is 91. EMS reported their Accu- Chek was 113. Patient states she is no longer nauseous. Patient reports a history of a liver cancer on her last hospitalization remained In 2020 there was a lesion in the liver that required further work-up the work-up was dilated other facility. She did have placement of radiation beads in the liver, no chemo ongoing at this time. The remainder of her work-up for the liver lesion and the treatments were done through [facility] in [place]. She did take her insulin last night. Onset (ago): minute(s) Associated symptoms: Reports decreased appetite, malaise, nausea, vomiting and weakness; Deny chest pain, dyspnea or rash Treatments prior to arrival: other (Antiemetics) Review of Systems Const: Reports: fatigue and malaise; Denies: fever(s) or chills Card: Denies: chest pain Resp: Denies: dyspnea GI: Reports: nausea and vomiting; Denies: abdominal pain Skin/Breast: Denies: rash PFS ED PFSH: Medical History ARDS (adult respiratory distress syndrome) Asthma Benign atrial arrhythmia Chronic nausea Related to gastroparesis and diabetes. Chronic pain syndrome COVID-19 Depression Essential (primary) hypertension Fibromyalgia GERD (gastroesophageal reflux disease) Hyperlipidemia Morbid obesity with BMI of 45.0-49.9, adult Pseudomonas pneumonia Seasonal allergies Small fiber neuropathy Spinal cord stimulator status PAIN PUMP Surgical History S/P appendectomy S/P section S/P tubal ligation Family History Other Diabetes Hypertension Social History Smoking and tobacco/nicotine status: never used tobacco/nicotine Alcohol intake: never Substance/Drug Use: never Do you think of yourself as: Straight/Heterosexual Current gender identity: Female Physical Exam Const: GENERAL APPEARANCE: cooperative ORIENTATION/CONSCIOUSNESS: Yes awake, Yes oriented to person, Yes oriented to place and Yes oriented to time HENMT: COMMON NORMALS: normocephalic, atraumatic and hearing grossly normal bilaterally HEAD & SCALP: normocephalic and atraumatic Resp: COMMON NORMALS: normal respiratory effort, No retractions, No use of accessory muscles and clear to auscultation bilaterally AUSCULTATION: clear to auscultation bilaterally Cardio: COMMON NORMALS: regular rate, regular rhythm and No murmurs present (Cardio) RATE: regular rate RHYTHM: regular rhythm GI: COMMON NORMALS: Soft to palpation and No hepatosplenomegaly present AU SCULTATION: Yes normoactive bowel sounds PALPATION: Yes Soft to palpation, No Tenderness to palpation present (GI), No Guarding due to palpation present (GI) and Yes No hepatosplenomegaly present OTHER: Pain pump in the left lower quadrant of abdominal wall of the abdominal wall Extremity: COMMON NORMALS: normal to inspection, capillary refill normal, no clubbing, cyanosis or edema, no calf tenderness and no pedal edema Neuro: SENSORIUM/ORIENTATION: Yes oriented to person, Yes oriented to place a nd Yes oriented to time Skin: COMMON NORMALS: no rashes or lesions noted GENERAL SKIN EXAM: no rashes or lesions noted Course Vital Signs: Vital signs: Vital Signs Temperature 97.7 F 07/25/23 06:05 Pulse Rate 76 07/25/23 07:57 Respiratory Rate 16 07/25/23 07:57 Blood Pressure 131/56 07/25/23 07:57 Pulse Oximetry 96 07/25/23 07:57 Oxygen Delivery Me thod Room Air 07/25/23 06:16 [facility] - General Adult Medical Decision Making Nausea improved blood sugar has been stable. Initial blood pressure elevated but now has stabilized in the 130 systolic range. Patient has had chronic nausea issues in the past she has both Reglan and ondansetron at home states does not seem to be working. Gave her promethazine to use as needed continue to monitor blood sugars closely advance diet as tolerated follow-up with your primary care doctor Medical Records I reviewed the patient's medical records. Lab Data I reviewed the patient's lab results. 07/25/23 06:38 07/25/23 06:38 Laboratory Results WBC 8.85 10^3/uL (3.29-11.43) 07/25/23 06:38 RBC 5.33 10^6/uL (3.85-5.65) 07/25/23 06:38 Hgb 14.20 g/dL (11.27-16.99) 07/25/23 06:38 Hct 44.8 % (36-47) 07/25/23 06:38 MCV 84.1 fl (85-98) L 07/25/23 06:38 MCH 26.6 pg (27-33) L 07/25/23 06:38 MCHC 31.7 g/dL (30-55) 07/25/23 06:38 RDW 16.8 % (12.1-15.1) H 07/25/23 06:38 Plt Count 245 10^3/cmm (157-399) 07/25/23 06:38 MPV 11.4 fL (7.4-10.4) H 07/25/23 06:38 Neut % (Auto) 83.8 % 07/25/23 06:38 Lymph % (Auto) 5.6 % 07/25/23 06:38 Hand % (Auto) 8.5 % 07/25/23 06:38 Eos % (Auto) 0.7 % 07/25/23 06:38 Baso % (Auto) 0.8 % 07/25/23 06:38 Neut # (Auto) 7.42 10^3/uL (1.8-7.7) 07/25/23 06:38 Lymph # (Auto) 0.5 10^3/uL (0.8-4.8) L 07/25/23 06:38 Hand # (Auto) 0.8 10^3/uL (0.2-0.9) 07/25/23 06:38 Eos # (Auto) 0.1 10^3/uL (0.0-0.8) 07/25/23 06:38 Baso # (Auto) 0.1 10^3/uL (0.0-0.1) 07/25/23 06:38 Nucleated RBC % (auto) 0 % 07/25/23 06:38 Nucleated RBCs # 0.0 /100WBC 07/25/23 06:38 Sodium 139 mmol/L (136-145) 07/25/23 06:38 Potassium 4.0 mmol/L (3.5-5.1) 07/25/23 06:38 Chloride 103 mmol/L (98-107) 07/25/23 06:38 Carbon Dioxide 27 mmol/L (22-29) 07/25/23 06:38 Anion Gap 13.0 (5-19) 07/25/23 06:38 BUN 11 mg/dL (6-20) 07/25/23 06:38 Creatinine 0.6 mg/dL (0.5-0.9) 07/25/23 06:38 GFR Calculation 109.6 mL/min (90-130) 07/25/23 06:38 Glucose 103 mg/dL (65-115) 07/25/23 06:38 POC Glucose 105 mg/dL (70-110) 07/25/23 07:56 Calculated Osmolality 288 mOsm/kg (285-295) 07/25/23 06:38 Calcium 9.1 mg/dL (8.5-10.5) 07/25/23 06:38 Total Bilirubin 0.4 mg/dL (0.15-1.2) 07/25/23 06:38 AST 43 U/L (0-32) H 07/25/23 06:38 ALT 50 U/L (0-33) H 07/25/23 06:38 Alkaline Phosphatase 248 U/L (35-105) H 07/25/23 06:38 Total Protein 7.2 g/dL (6.6-8.7) 07/25/23 06:38 Albumin 3.3 g/dL (3.5-5.2) L 07/25/23 06:38 Globulin 3.9 g/dL (1.3-4.6) 07/25/23 06:38 Urine Color Yellow (Yellow) 07/25/23 07:20 Urine Appearance Clear (CLEAR) 07/25/23 07:20 Urine pH 7 (5-7) 07/25/23 07:20 Ur Specific [place] 1.005 (1.005-1.030) 07/25/23 07:20 Urine Protein Neg (Negative) 07/25/23 07:20 Urine Glucose (UA) Norm (Normal) 07/25/23 07:20 Urine Ketones Negative (Negative) 07/25/23 07:20 Urine Blood Neg (Negative) 07/25/23 07:20 Urine Nitrate Negative (Negative) 07/25/23 07:20 Urine Bilirubin Neg (Negative) 07/25/23 07:20 Urine Urobilinogen 1 mg/dL (Negative) H 07/25/23 07:20 Ur Leukocyte Esterase Negative (Negative) 07/25/23 07:20 No radiology studies performed this visit Discharge Plan Discharge Patient Disposition: Home Clinical Impression: Hypoglycemia, Chronic nausea Condition: Stable Prescriptions: New promethazine 25 mg tablet 25 mg PO Q6H PRN (Reason: nausea and vomiting) Qty: 20 0RF No Action aspirin 81 mg tablet,delayed release (DR/EC) 81 mg PO BEDTIME (DME) blood-glucose meter [Blood Glucose Monitoring] Kit See Rx Instructions .ROUTE .MEDSUPPLY Qty: 1 0RF Rx Instructions: As directed (DME) Blood Glucose Test Strip See Rx Instructions .ROUTE .MEDSUPPLY Qty: 100 1RF Rx Instructions: As directed insulin aspart U-100 [Novolog FlexPen U-100 Insulin] 100 unit/mL (3 mL) insulin pen See Rx Instructions SUBCUT .COMPLEX MDD 210 Qty: 90 2RF Rx Instructions: 50 units TID with meals; 10-20 units with snacks (DME) pen needle, diabetic [TechLITE Pen Needle] 31 gauge x 3/16 needle See Rx Instructions .ROUTE .COMPLEX Qty: 100 11RF Dose Instruction: USE WITH INSULIN 5 TIMES DAILY Rx Instructions: USE WITH INSULIN 5 TIMES DAILY atorvastatin 20 mg tablet 20 mg PO BEDTIME cetirizine 10 mg tablet 10 mg PO DAILY ProAir HFA 90 mcg/actuation HFA aerosol inhaler 1 puff INHALATION Q6H PRN (Reason: shortness of breath or wheezing) Tylenol Extra Strength 500 mg Tablet 1,000 mg PO PRN ibuprofen 200 mg Tablet 600 mg PO PRN Flovent HFA 220 mcg/actuation HFA aerosol inhaler 2 puff INHALATION Q12H furosemide 20 mg tablet 20 mg PO DAILY PRN (Reason: Edema) polyethylene glycol 3350 17 gram/dose powder 17 g PO DAILY PRN (Reason: Constipation) duloxetine 40 mg capsule,delayed release(DR/EC) 40 mg PO DAILY ondansetron HCl 8 mg tablet 8 mg PO Q8H PRN (Reason: Nausea And Vomiting) omeprazole 20 mg capsule,delayed release(DR/EC) 40 mg PO BEDTIME Bupivacaine 10.66mg/Ml See Rx Instructions .ROUTE .COMPLEX Rx Instructions: 2.1054 MG OVER A 24 HOUR PERIOD FROM PAIN PUMP Morphine 8mg/8ml Con See Rx Instructions .ROUTE .COMPLEX Rx Instructions: 1.58 MG OVER A 24 HOUR PERIOD FROM PAIN PUMP metoprolol tartrate 50 mg Tablet 50 mg PO BID@0900,2100 Qty: 60 0RF Xarelto 10 mg Tablet 10 mg PO Q24H Qty: 31 0RF ferrous gluconate 324 mg (37.5 mg iron) Tablet 324 mg PO EVERY OTHER DAY Qty: 15 0RF insulin lispro 100 unit/mL insulin pen See Rx Instructions .ROUTE .COMPLEX Qty: 15 0RF Rx Instructions: ACHS Glucose: 141-180 - 2 units 181-220 - 3 221-260 - 4 261-300 - 5 301-350 - 6 351-400 - 7 >400 - 8 units baclofen 10 mg tablet 10 mg PO TID PRN (Reason: Spasms) Qty: 0 0RF Levemir FlexTouch U100 Insulin 100 unit/mL (3 mL) insulin pen 130 unit SUBCUT BID 30 Days Qty: 75 3RF Discharge Orders: Discharge ED (Routine); Ordered 07/25/23 Ordered By: Sheng Reynolds Referrals: En Dowell DO [Primary Care Provider] - Discharge Diet: Usual diet Discharge Activity: Increase activity as tolerated Patient Instructions: Opioid Safety, Pain Management Activity Restrictions/Additional Instructions: Thank you for choosing [facility] for your healthcare needs today. Please realize this is an emergency room and that we are providing you with a medical screening exam and this may not be complete and all inclusive of all the testing and or work up that you may need to determine your ailment or severity o f your illness. It is very important that you follow up as instructed or that you return to the Emergency Department should you have concerns or if your condition changes or worsens in any way. You were seen today for low blood sugar. Your blood sugar remained stable while in the emergency room. We did give you a prescription to use for nausea called Phenergan and you can use that in place of Reglan or Zofran that you have been previously prescribed. Continue to monitor your blood sugars follow-up with your primary care doctor. Coding Level of Care Code ED [employer] for Katarzyna Vidal
[2023-07-25 06:16] VITALS: BP 170/71; PULSE 75; RESP 15; O2SAT 98
--- NOTE | 2023-07-25 06:25 | PC.NURSE ---
pt informed of needed urine sample. pt states unless you give me IV fluids, good luck getting urine out of me. I have not been able to keep anything down all night. this nurse informed patient that we needed to attempt for urine. pt then stated I was just told to take my body seriously when it is mad at me. I have liver cancer and I am dying, no transplant and I am .
[2023-07-25] MEDS: sodium chloride 0.9% 1,000 ML 999 ML IV (06:28)
--- NOTE | 2023-07-25 06:34 | PC.NURSE ---
this nurse gave pt applesauce and orange jello in attempt to keep food down per Dr. Reynolds
[2023-07-25 06:44] VITALS: O2SAT 99
[2023-07-25 06:51] LABS: Basophils # 0.1 10^3/uL (0.0-0.1); Basophils % 0.8 %; Eosinophils # 0.1 10^3/uL (0.0-0.8); Eosinophils % 0.7 %; Hematocrit 44.8 % (36-47); Lymphocytes # 0.5 10^3/uL (0.8-4.8); Lymphocytes % 5.6 %; Mean Corpuscular HGB Conc 31.7 g/dL (30-55); Mean Corpuscular Hemoglobin 26.6 pg (27-33); Mean Corpuscular Volume 84.1 fl (85-98); Mean Platelet Volume 11.4 fL (7.4-10.4); Monocytes # 0.8 10^3/uL (0.2-0.9); Monocytes % 8.5 %; Neutrophils # 7.42 10^3/uL (1.8-7.7); Neutrophils % 83.8 %; Nucleated Red Blood Cells % 0 %; Platelet Count 245 10^3/cmm (157-399); Red Blood Count 5.33 10^6/uL (3.85-5.65); Red Cell Distribution Width 16.8 % (12.1-15.1); White Blood Count 8.85 10^3/uL (3.29-11.43)
[2023-07-25 07:04] LABS: Alanine Aminotransferase 50 U/L (0-33); Albumin Level 3.3 g/dL (3.5-5.2); Alkaline Phosphatase 248 U/L (35-105); Aspartate Amino Transferase 43 U/L (0-32); Blood Urea Nitrogen 11 mg/dL (6-20); Calcium 9.1 mg/dL (8.5-10.5); Carbon Dioxide 27 mmol/L (22-29); Chloride 103 mmol/L (98-107); Globulin 3.9 g/dL (1.3-4.6); Glomerular Filtration Rate 109.6 mL/min (90-130); Glucose 103 mg/dL (65-115); Osmolality Calculated 288 mOsm/kg (285-295); Sodium 139 mmol/L (136-145); Total Bilirubin 0.4 mg/dL (0.15-1.2); Total Protein 7.2 g/dL (6.6-8.7)
[2023-07-25 07:16] LABS: Glucose Point of Care 104 mg/dL (70-110)
[2023-07-25 07:33] LABS: Add Urine Microscopic? NO; Charge for UA Resulting for Rev
[2023-07-25 07:40] LABS: Bilirubin Urine Neg (Negative); Blood Urine Neg (Negative); Glucose Urine UA Norm (Normal); Ketones Urine Negative (Negative); Nitrate Urine Negative (Negative); Protein Urine Neg (Negative); Specific Gravity, Urine 1.005 (1.005-1.030); Urine Appearance Clear (CLEAR); Urine Color Yellow (Yellow); pH Urine 7 (5-7)
[2023-07-25 07:41] LABS: Leukocyte Esterase Urine Negative (Negative); Urobilinogen Urine 1 mg/dL (Negative)
[2023-07-25 07:57] VITALS: BP 131/56; PULSE 76; RESP 16; O2SAT 96
[2023-07-25 07:59] LABS: Glucose Point of Care 105 mg/dL (70-110)
== END 2023-07-25 08:37 | disposition home or self-care (01) ==
PROVIDERS: Emergency Provider Family Medicine; PCP Family Medicine
DX: E11.649 Type 2 diabetes mellitus with hypoglycemia without coma (principal); Z79.4 Long term (current) use of insulin; E78.5 Hyperlipidemia, unspecified; R11.0 Nausea; Z79.82 Long term (current) use of aspirin
CPT/HCPCS: 36415; 36416; 80053; 81003; 82962; 85025; 96360; 96361; 99284; J7030

== ENCOUNTER 2024-09-24 13:32 | Inpatient (IN) | payer MEDICAID, SELFPAY ==
[2024-09-24] VITALS (19 sets, daily range): BP systolic 95–161; BP diastolic 49–98; PULSE 85–143; RESP 17–20; TEMP 36.5–36.7; O2SAT 90–100; BMI 37.6; BMI 36.4
[2024-09-24 14:39] LABS: Glucose Point of Care 432 mg/dL (70-110)
--- NOTE | 2024-09-24 15:07 | W.ED.WEAKNES ---
HPI - Weakness General: Chief complaint: Weakness Stated complaint: f,v, extreme week Time Seen by Provider: 09/24/24 14:34 Source: patient Mode of arrival: ambulatory Limitations: no limitations History of Present Illness: 44-year-old female history of a liver transplant roughly 7 months ago at [facility] she states she had a stent replaced there is scheduled on the 16 states of the last 2 to 3 days she has been having some nausea vomiting along with generalized weakness. She states she had also ran out of her insulin has had some hyperglycemia patient denies any abdominal pain denies any fever. PFSH ED PFSH: Medical History ARDS (adult respiratory distress syndrome) Asthma Benign atrial arrhythmia Chronic nausea Related to gastroparesis and diabetes. Chronic pain syndrome COVID-19 Depression Essential (primary) hypertension Fibromyalgia GERD (gastroesophageal reflux disease) Hyperlipidemia Morbid obesity with BMI of 45.0-49.9, adult Pseudomonas pneumonia Seasonal allergies Small fiber neuropathy Spinal cord stimulator status PAIN PUMP Surgical History S/P appendectomy S/P section S/P tubal ligation Family History Other Diabetes Hypertension Social History Smoking and tobacco/nicotine status: never used tobacco/nicotine Alcohol intake: never Substance/Drug Use: never Do you think of yourself as: Straight/Heterosexual Current gender identity: Female Course Vital Signs: Vital signs: Vital Signs Temperature 98.1 F 09/24/24 14:16 Pulse Rate 85 09/24/24 15:49 Respiratory Rate 18 09/24/24 15:09 Blood Pressure 161/88 09/24/24 15:04 Pulse Oximetry 95 09/24/24 15:49 Oxygen Delivery Me thod Room Air 09/24/24 14:16 MDM - Weakness Medical Decision Making Patient presents here with vomiting dehydration is an acute kidney injury. She has a recent liver transplant I talked with her transplant physician at [place] is comfortable patient staying here her liver enzymes white count is normal we will admit at this time for hydration. Medical Records I reviewed the patient's medical records. Lab Data I reviewed the patient's lab results. 09/24/24 15:13 09/24/24 15:13 Laboratory Results WBC 11.88 10^3/uL (3.29-11.43) H 09/24/24 15:13 RBC 6.27 10^6/uL (3.85-5.65) H 09/24/24 15:13 Hgb 16.40 g/dL (11.27-16.99) 09/24/24 15:13 Hct 48.6 % (36-47) H 09/24/24 15:13 MCV 77.5 fl (85-98) L 09/24/24 15:13 MCH 26.2 pg (27-33) L 09/24/24 15:13 MCHC 33.7 g/dL (30-55) 09/24/24 15:13 RDW 19.9 % (12.1-15.1) H 09/24/24 15:13 Plt Count 250 10^3/cmm (157-399) 09/24/24 15:13 MPV 10.5 fL (7.4-10.4) H 09/24/24 15:13 Neut % (Auto) 81.7 % 09/24/24 15:13 Lymph % (Auto) 11.5 % 09/24/24 15:13 [place] % (Auto) 5.6 % 09/24/24 15:13 Eos % (Auto) 0.3 % 09/24/24 15:13 Baso % (Auto) 0.4 % 09/24/24 15:13 Neut # (Auto) 9.71 10^3/uL (1.8-7.7) H 09/24/24 15:13 Lymph # (Auto) 1.4 10^3/uL (0.8-4.8) 09/24/24 15:13 [place] # (Auto) 0.7 10^3/uL (0.2-0.9) 09/24/24 15:13 Eos # (Auto) 0.0 10^3/uL (0.0-0.8) 09/24/24 15:13 Baso # (Auto) 0.1 10^3/uL (0.0-0.1) 09/24/24 15:13 Nucleated RBC % (auto) 0 % 09/24/24 15:13 Nucleated RBCs # 0.0 /100WBC 09/24/24 15:13 Specimen Type Arterial 09/24/24 16:06 Sample Site Radial, left 09/24/24 16:06 ABG pH 7.43 (7.35-7.45) 09/24/24 16:06 ABG pCO2 33.7 mmHg (35-45) L 09/24/24 16:06 ABG pO2 82.9 mmHg (80.0-100.0) 09/24/24 16:06 ABG PO2/FiO2 Ratio 394 09/24/24 16:06 ABG HCO3 22.5 mmol/L (22-26) 09/24/24 16:06 ABG Base Excess -1.0 mmol/L (-2.0-2.0) 09/24/24 16:06 Alvin Test Pos 09/24/24 16:06 Hematocrit 46.2 % (37-47) 09/24/24 16:06 O2 Delivery Device Room air 09/24/24 16:06 FiO2 21.0 % 09/24/24 16:06 Well Logging Captain Mud Analysis ID [place] 09/24/24 16:06 Sodium 127 mmol/L (136-145) L 09/24/24 15:13 Potassium 4.8 mmol/L (3.5-5.1) 09/24/24 15:13 Chloride 85 mmol/L (98-107) L 09/24/24 15:13 Carbon Dioxide 22 mmol/L (22-29) 09/24/24 15:13 Anion Gap 24.8 (5-19) H 09/24/24 15:13 BUN 45 mg/dL (6-20) H 09/24/24 15:13 Creatinine 2.6 mg/dL (0.5-0.9) H 09/24/24 15:13 GFR Calculation 20.0 mL/min (90-130) L 09/24/24 15:13 Glucose 411 mg/dL (65-115) H 09/24/24 15:13 POC Glucose 432 mg/dL (70-110) H 09/24/24 14:16 Calculated Osmolality 293 mOsm/kg (285-295) 09/24/24 15:13 Calcium 10.0 mg/dL (8.5-10.5) 09/24/24 15:13 Total Bilirubin 0.8 mg/dL (0.15-1.2) 09/24/24 15:13 AST 11 U/L (0-32) 09/24/24 15:13 ALT 17 U/L (0-33) 09/24/24 15:13 Alkaline Phosphatase 95 U/L (35-105) 09/24/24 15:13 Total Protein 7.7 g/dL (6.6-8.7) 09/24/24 15:13 Albumin 4.5 g/dL (3.5-5.2) 09/24/24 15:13 Globulin 3.2 g/dL (1.3-4.6) 09/24/24 15:13 Lipase 27 U/L (13-60) 09/24/24 15:13 Serum Ketones Negative (Negative) 09/24/24 15:13 Coronavirus (PCR) Negative (Negative) 09/24/24 15:54 Influenza A (PCR) Negative (Negative) 09/24/24 15:54 Influenza Type B (PCR) Negative (Negative) 09/24/24 15:54 RSV (PCR) Negative (Negative) 09/24/24 15:54 No radiology studies performed this visit Discharge Plan Discharge Patient Disposition: Admitted As Inpatient Clinical Impression: Acute kidney injury, Weakness, Vomiting, Hyperglycemia Condition: Stable Prescriptions: No Action aspirin 81 mg tablet,delayed release (DR/EC) 81 mg PO BEDTIME (DME) blood-glucose meter [Blood Glucose Monitoring] Kit See Rx Instructions .ROUTE .MEDSUPPLY Qty: 1 0RF Rx Instructions: As directed (DME) Blood Glucose Test Strip See Rx Instructions .ROUTE .MEDSUPPLY Qty: 100 1RF Rx Instructions: As directed (DME) pen needle, diabetic [TechLITE Pen Needle] 31 gauge x 3/16 needle See Rx Instructions .ROUTE .COMPLEX Qty: 100 11RF Dose Instruction: USE WITH INSULIN 5 TIMES DAILY Rx Instructions: USE WITH INSULIN 5 TIMES DAILY atorvastatin 20 mg tablet 20 mg PO BEDTIME cetirizine 10 mg tablet 10 mg PO DAILY acetaminophen [Tylenol Extra Strength] 500 mg Tablet 1,000 mg PO PRN furosemide 20 mg tablet 20 mg PO DAILY PRN (Reason: Edema) polyethylene glycol 3350 17 gram/dose powder 17 g PO DAILY PRN (Reason: Constipation) ondansetron HCl 8 mg tablet 8 mg PO Q8H PRN (Reason: Nausea And Vomiting) omeprazole 20 mg capsule,delayed release(DR/EC) 40 mg PO BEDTIME Bupivacaine 10.66mg/Ml See Rx Instructions .ROUTE .COMPLEX Rx Instructions: 2.1054 MG OVER A 24 HOUR PERIOD FROM PAIN PUMP ferrous gluconate 324 mg (37.5 mg iron) Tablet 324 mg PO EVERY OTHER DAY Qty: 15 0RF valganciclovir [Valcyte] 450 mg Tablet 450 mg PO DAILY carvedilol 25 mg Tablet 25 mg PO BID Rx Instructions: must administer with a meal/food tacrolimus [Prograf] 1 mg Capsule 3 mg PO Q12H atovaquone [Mepron] 750 mg/5 mL Suspension 360 mg PO DAILY Rx Instructions: must administer with food, preferably a high-fat meal mycophenolate sodium [Myfortic] 360 mg Tablet,Delayed Release (Dr/Ec) 360 mg PO BID fluticasone propion-salmeterol [Advair Diskus] 250-50 mcg/dose blister with device 1 ea INHALATION BID sennosides-docusate sodium [Senna Laxative-Stool Softener] 8.6-50 mg Tablet 1 tab-cap PO TID PRN (Reason: constipation ) amitriptyline 10 mg Tablet 10 mg PO DAILY albuterol sulfate [Ventolin HFA] 90 mcg/actuation HFA aerosol inhaler 1 puff INHALATION Q6H PRN (Reason: Shortness Of Breath Or Wheezing) insulin lispro [Humalog Pen] 100 unit/mL Insulin Pen See Rx Instructions .ROUTE .COMPLEX Rx Instructions: take 17 units per sliding scale with meals 3 times a day . tiotropium bromide [Spiriva with HandiHaler] 18 mcg capsule, w/inhalation device 1 cap INHALATION QPM insulin glargine [Lantus Solostar U-100 Insulin] 100 unit/mL (3 mL) insulin pen 69 unit SUBCUT DAILY morphine 8 mg/mL Syringe See Rx Instructions .ROUTE .COMPLEX PRN (Reason: Pain) Rx Instructions: 1.58 MG OVER A 24 HOUR PERIOD FROM PAIN PUMP oxycodone 10 mg Tablet, Oral Only 10 mg PO Q4H PRN (Reason: Pain) Referrals: En Dowell DO [Primary Care Provider] - Coding Level of Care Code ED Operations Support Analyst for Chg Fwd Related Data Home Medications Medication Instructions Recorded Confirmed aspirin 81 mg tablet,delayed 81 mg PO BEDTIME 09/11/19 09/24/24 release Bupivacaine 10.66mg/Ml See Rx Instructions .Route .COMPLEX 03/23/21 09/24/24 acetaminophen 500 mg tablet 1,000 mg PO PRN 03/23/21 09/24/24 (Tylenol Extra Strength) atorvastatin 20 mg tablet 20 mg PO BEDTIME 03/23/21 09/24/24 cetirizine 10 mg tablet 10 mg PO DAILY 03/23/21 09/24/24 furosemide 20 mg tablet 20 mg PO DAILY PRN Edema 03/23/21 09/24/24 omeprazole 20 mg capsule,delayed 40 mg PO BEDTIME 03/23/21 09/24/24 release ondansetron HCl 8 mg tablet 8 mg PO Q8H PRN Nausea And Vomiting 03/23/21 09/24/24 polyethylene glycol 3350 17 17 g PO DAILY PRN Constipation 03/23/21 09/24/24 gram/dose oral powder albuterol sulfate 90 mcg/actuation 1 puff inhalation Q6H PRN 09/24/24 09/24/24 aerosol inhaler (Ventolin HFA) Shortness Of Breath Or Wheezing amitriptyline 10 mg tablet 10 mg PO DAILY 09/24/24 09/24/24 atovaquone 750 mg/5 mL oral 360 mg PO DAILY 09/24/24 09/24/24 suspension (Mepron) carvedilol 25 mg tablet 25 mg PO BID 09/24/24 09/24/24 fluticasone 250 mcg-salmeterol 50 1 ea inhalation BID 09/24/24 09/24/24 mcg/dose blistr powdr for inhalation (Advair Diskus) insulin glargine 100 unit/mL (3 69 unit SUBCUT DAILY 09/24/24 09/24/24 mL) subcutaneous pen (Lantus Solostar U-100 Insulin) insulin lispro 100 unit/mL See Rx Instructions .Route .COMPLEX 09/24/24 09/24/24 subcutaneous pen morphine 8 mg/mL intravenous See Rx Instructions .Route 09/24/24 09/24/24 syringe .COMPLEX PRN Pain mycophenolate sodium 360 mg 360 mg PO BID 01/27/25 01/27/25 tablet,delayed release (Myfortic) oxycodone 10 mg tablet,oral ONLY 10 mg PO Q4H PRN Pain 09/24/24 09/24/24 (not feeding tubes) sennosides 8.6 mg-docusate sodium 1 tab-cap PO TID PRN constipation 09/24/24 09/24/24 50 mg tablet tacrolimus 1 mg capsule, 3 mg PO Q12H 09/24/24 09/24/24 immediate-release (Prograf) tiotropium bromide 18 mcg capsule 1 cap inhalation QPM 09/24/24 09/24/24 with inhalation device (Spiriva with HandiHaler) valganciclovir 450 mg tablet 450 mg PO DAILY 09/24/24 09/24/24 (Valcyte) Previous Rx's Medication Instructions Recorded blood sugar diagnostic (Blood #100 ea 03/18/20 Glucose Test strips) blood-glucose meter (Blood Glucose #1 ea 03/18/20 Monitoring kit) ferrous gluconate 324 mg (37.5 mg 324 mg PO EVERY OTHER DAY #15 tabs 05/02/21 iron) tablet pen needle, diabetic 31 gauge x ##100 02/12/22/ (TechLITE Pen Needle) Allergies Allergy/AdvReac Type Severity Reaction Status Date / Time sulfamethoxazole Allergy Unknown Unknown Verified 07/25/23 06:12 [From Bactrim] trimethoprim [From Bactrim] Allergy Unknown Unknown Verified 07/25/23 06:12 lidocaine Allergy Unknown Verified 09/24/24 14:19 metformin AdvReac Mild diarrhea, Verified 07/25/23 06:12 vomiting
[2024-09-24] MEDS: morphine 4 mg/mL SDV 1 mL IVP (15:09)
[2024-09-24] MEDS: insulin regular-human 100 units/1 mL 10 UNIT IVP (15:09)
[2024-09-24] MEDS: ondansetron 2 mg/ML SDV 2 mL 4 MG IVP ×2 (15:09→20:45)
[2024-09-24] MEDS: sodium chloride 0.9% 1,000 ML 999 ML IV (15:09)
[2024-09-24 15:18] LABS: Basophils # 0.1 10^3/uL (0.0-0.1); Basophils % 0.4 %; Eosinophils % 0.3 %; Hematocrit 48.6 % (36-47); Lymphocytes # 1.4 10^3/uL (0.8-4.8); Lymphocytes % 11.5 %; Mean Corpuscular HGB Conc 33.7 g/dL (30-55); Mean Corpuscular Hemoglobin 26.2 pg (27-33); Mean Corpuscular Volume 77.5 fl (85-98); Mean Platelet Volume 10.5 fL (7.4-10.4); Monocytes # 0.7 10^3/uL (0.2-0.9); Monocytes % 5.6 %; Neutrophils # 9.71 10^3/uL (1.8-7.7); Neutrophils % 81.7 %; Nucleated Red Blood Cells % 0 %; Platelet Count 250 10^3/cmm (157-399); Red Blood Count 6.27 10^6/uL (3.85-5.65); Red Cell Distribution Width 19.9 % (12.1-15.1); White Blood Count 11.88 10^3/uL (3.29-11.43)
[2024-09-24 15:34] LABS: Slide Review Slide Review Perform
[2024-09-24 15:35] LABS: Alanine Aminotransferase 17 U/L (0-33); Albumin Level 4.5 g/dL (3.5-5.2); Alkaline Phosphatase 95 U/L (35-105); Anion Gap 24.8 (5-19); Aspartate Amino Transferase 11 U/L (0-32); Blood Urea Nitrogen 45 mg/dL (6-20); Carbon Dioxide 22 mmol/L (22-29); Chloride 85 mmol/L (98-107); Creatinine Clr Calc Pharmacy 39.8707; Globulin 3.2 g/dL (1.3-4.6); Glucose 411 mg/dL (65-115); Lipase 27 U/L (13-60); Osmolality Calculated 293 mOsm/kg (285-295); Potassium 4.8 mmol/L (3.5-5.1); Sodium 127 mmol/L (136-145); Total Bilirubin 0.8 mg/dL (0.15-1.2); Total Protein 7.7 g/dL (6.6-8.7)
[2024-09-24 16:20] LABS: ABG PCO2 33.7 mmHg (35-45); ABG PH Result 7.43 (7.35-7.45); Arterial Blood Gas Hematocrit 46.2 % (37-47); Blood Gas Allen Test Pos; Blood Gas Operator Identificat MONRO; Blood Gas Sample Site Radial, left; Blood Gas Sample Type Arterial; HCO3 ABG 22.5 mmol/L (22-26); Oxygen Device ROOM AIR; PO2 ABG 82.9 mmHg (80.0-100.0); PO2 FiO2 Ratio Arterial Blood 394
[2024-09-24 16:34] LABS: Ketone (Acetest) Serum Negative (Negative)
[2024-09-24 16:53] LABS: Covid PCR NEGATIVE (Negative); Influenza A NEGATIVE (Negative); Influenza B NEGATIVE (Negative); Respiratory Syncytial Virus Ce NEGATIVE (Negative)
--- NOTE | 2024-09-24 17:04 | CTR_ITS ---
PROCEDURE INFORMATION: Exam: CT Chest Without Contrast; Diagnostic Exam date and time: 09/24/2024 6:02 PM Age: 44 years old Clinical indication: Abdominal tenderness and vomiting; Shortness of breath; Prior surgery; Surgery date: 6+ months; Surgery type: Liver; Additional info: SOB TECHNIQUE: Imaging protocol: Diagnostic computed tomography of the chest without contrast. Radiation optimization: All CT scans at this facility use at least one of these dose optimization techniques: automated exposure control; mA and/or kV adjustment per patient size (includes targeted exams where dose is matched to clinical indication); or iterative reconstruction. COMPARISON: CT chest [facility] [id number] 04/21/2021 10:07 AM RADIATION DOSE METRICS: Total DLP (mGy-cm): 1410.01 FINDINGS: Lungs: Minimal residual linear densities in the lungs likely represent some mild residual scarring from the patient's prior pulmonary infection. There is some subsegmental atelectasis in the lingula. No acute infiltrate or consolidation is identified. Pleural spaces: There are no pleural effusions present. Heart: Heart is within normal limits of size. Coronary arteries: There is no evidence of atherosclerotic coronary artery calcifications. Lymph nodes: There is no evidence of lymphadenopathy. Vasculature: Unremarkable. No aortic aneurysm. Bones/joints: Unremarkable. No acute fracture. Soft tissues: Unremarkable. PROCEDURE INFORMATION: Exam: CT Abdomen And Pelvis Without Contrast Exam date and time: 09/24/2024 6:02 PM Age: 44 years old Clinical indication: Abdominal tenderness and vomiting; Shortness of breath; Prior surgery; Surgery date: 6+ months; Surgery type: Liver; Additional info: SOB TECHNIQUE: Imaging protocol: Computed tomography of the abdomen and pelvis without contrast. Radiation optimization: All CT scans at this facility use at least one of these dose optimization techniques: automated exposure control; mA and/or kV adjustment per patient size (includes targeted exams where dose is matched to clinical indication); or iterative reconstruction. COMPARISON: CT chest [facility] [id number] 04/21/2021 10:07 AM RADIATION DOSE METRICS: Total DLP (mGy-cm): 1410.01 FINDINGS: Limitations: The absence of intravenous contrast lessens the sensitivity of this study for solid organ abnormalities. Tubes, catheters and devices: There is some manner of electronic device or infusion pump subcutaneous soft tissues left lower quadrant of the abdomen. Epidural catheter present on 03/23/2021 is not identified on this exam. Liver: There are postsurgical changes of what appears to be liver transplantation. There is no focal abnormality within the liver. Gallbladder and biliary ducts: There is stent in the common bile duct. There is minimal air within the biliary tract. Pancreas: The pancreas is normal. Spleen: The spleen is normal. Adrenal glands: The adrenal glands are normal. Kidneys and ureters: The kidneys are normal. There is no evidence of hydronephrosis. There is no evidence of renal or ureteral calcifications. Stomach and bowel: There is no evidence of colitis/diverticulitis. There is no evidence of intestinal obstruction. Appendix: There has been an appendectomy. Intraperitoneal space: There is no evidence of free intraperitoneal fluid. Vasculature: The aorta demonstrates mild atherosclerotic calcification. There is no evidence of an abdominal aortic aneurysm. Lymph nodes: There is no evidence of lymphadenopathy. Urinary bladder: Unremarkable as visualized. Reproductive: Unremarkable as visualized. Bones/joints: The lumbar spine demonstrates moderate degenerative changes at multiple levels. There is multilevel lumbar stenosis. Soft tissues: Unremarkable. CT/[place] [id number] IMPRESSION: 1. No acute findngs in the chest. IMPRESSION: 1. Findings of prior liver transplantation. Please correlate with surgical history. 2. No acute intra-abdominal finding. 3. There is no evidence of lymphadenopathy.
--- NOTE | 2024-09-24 17:05 | ECG_ITS ---
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 Measurements Intervals [place] Rate: 92 P: 51 MA: 157 QRS: -6 QRSD: 98 T: 6 QT: 383 QTc: 475 Interpretive Statements SINUS RHYTHM POSSIBLE LEFT ATRIAL ENLARGEMENT [-0.1mV P-WAVE IN V1/V2] INCOMPLETE RIGHT BUNDLE BRANCH BLOCK [90+ ms QRS DURATION, TERMINAL R IN V1/V2, 40+ ms S IN I/aVL/V4/V5/V6] Compared to ECG 03/23/2021 08:38:32 Incomplete right bundle-branch block now present Electronically Signed On 09-27-2024 12:40:11 NET DEVELOPMENT MANAGER by Mohamud Porter M.D. [id number]
[2024-09-24 17:11] LABS: Gamma Glutamyl Transferase 226 U/L (5-36)
--- NOTE | 2024-09-24 17:17 | P.HP_ITS ---
Providers/Chief Complaint 2 Primary Care Provider: En Dowell DO Chief Complaint: f,v, extreme week History of Present Illness Keily Foley is a 44 year old female with a past medical history of severe COVID-19 pneumonia, CHF, history of liver cancer status post liver transplant, 7 months ago, she has had 5 ERCPs since then which are routine for surveillance, has had no issues in the last ONE September 13, 2024. She she is on multiple rejection medications, she has never had any issues with rejection, she never had any issues with infection, she is on atovaquone and valacyclovir. She never had any complications after her liver transplant or any significant issues. She follows up with the liver transplant team at [facility]. Patient tells me that for the last 3 days she has had intractable nausea vomiting, yesterday she had subjective fevers and chills, no abdominal pain, no diarrhea, no new rashes, no sick contacts, she did go to [place] for her ERCP, no calf pain, no calf swelling, no chest pain, no shortness of breath, no lightheadedness, no dizziness, denies a history of liver disease, no history of UTIs, she has a history of small fiber neuropathy for which she is on a morphine pump and a bupivacaine pump, history of fibromyalgia no family ember's are sick, no sore throat, she does have some cervical lymphadenopathy and tenderness, no falls, no injuries, she is taking all her medications prescribed denies any drug use Review of Systems 2 Const: Reports: fever(s), chills, body aches, fatigue and malaise Card: Denies: chest pain Resp: Denies: dyspnea Medications/Allergies Home Medications Medication Instructions Recorded Confirmed Last Taken Type aspirin 81 mg tablet,delayed 81 mg PO BEDTIME 09/11/19 09/24/24 09/23/24 History release blood sugar diagnostic (Blood #100 ea 03/18/20 09/24/24 Unknown Rx Glucose Test strips) blood-glucose meter (Blood Glucose #1 ea 03/18/20 09/24/24 Unknown Rx Monitoring kit) Bupivacaine 10.66mg/Ml See Rx Instructions .Route .COMPLEX 03/23/21 09/24/24 09/24/24 History acetaminophen 500 mg tablet 1,000 mg PO PRN 03/23/21 09/24/24 Unknown History (Tylenol Extra Strength) atorvastatin 20 mg tablet 20 mg PO BEDTIME 03/23/21 09/24/24 Unknown History cetirizine 10 mg tablet 10 mg PO DAILY 03/23/21 09/24/24 09/24/24 History furosemide 20 mg tablet 20 mg PO DAILY PRN Edema 03/23/21 09/24/24 Unknown History omeprazole 20 mg capsule,delayed 40 mg PO BEDTIME 03/23/21 09/24/24 09/23/24 History release ondansetron HCl 8 mg tablet 8 mg PO Q8H PRN Nausea And Vomiting 03/23/21 09/24/24 09/24/24 History polyethylene glycol 3350 17 17 g PO DAILY PRN Constipation 03/23/21 09/24/24 Unknown History gram/dose oral powder ferrous gluconate 324 mg (37.5 mg 324 mg PO EVERY OTHER DAY #15 tabs 05/02/21 09/24/24 09/23/24 Rx iron) tablet pen needle, diabetic 31 gauge x ##100 02/12/22 09/24/24 Unknown Rx 11/11 (TechLITE Pen Needle) albuterol sulfate 90 mcg/actuation 1 puff inhalation Q6H PRN 09/24/24 09/24/24 Unknown History aerosol inhaler (Ventolin HFA) Shortness Of Breath Or Wheezing amitriptyline 10 mg tablet 10 mg PO DAILY 09/24/24 09/24/24 09/23/24 History atovaquone 750 mg/5 mL oral 360 mg PO DAILY 09/24/24 09/24/24 09/23/24 History suspension (Mepron) carvedilol 25 mg tablet 25 mg PO BID 09/24/24 09/24/24 09/24/24 History fluticasone 250 mcg-salmeterol 50 1 ea inhalation BID 09/24/24 09/24/24 09/23/24 History mcg/dose blistr powdr for inhalation (Advair Diskus) insulin glargine 100 unit/mL (3 69 unit SUBCUT DAILY 09/24/24 09/24/24 09/23/24 History mL) subcutaneous pen (Lantus Solostar U-100 Insulin) insulin lispro 100 unit/mL See Rx Instructions .Route .COMPLEX 09/24/24 09/24/24 09/24/24 History subcutaneous pen morphine 8 mg/mL intravenous See Rx Instructions .Route 09/24/24 09/24/24 09/24/24 History syringe .COMPLEX PRN Pain mycophenolate sodium 360 mg 360 mg PO BID 09/24/24 09/24/24 09/24/24 History tablet,delayed release (Myfortic) oxycodone 10 mg tablet,oral ONLY 10 mg PO Q4H PRN Pain 09/24/24 09/24/24 09/23/24 History (not feeding tubes) sennosides 8.6 mg-docusate sodium 1 tab-cap PO TID PRN constipation 09/24/24 09/24/24 09/23/24 History 50 mg tablet tacrolimus 1 mg capsule, 3 mg PO Q12H 09/24/24 09/24/24 09/24/24 History immediate-release (Prograf) tiotropium bromide 18 mcg capsule 1 cap inhalation QPM 09/24/24 09/24/24 09/23/24 History with inhalation device (Spiriva with HandiHaler) valganciclovir 450 mg tablet 450 mg PO DAILY 09/24/24 09/24/24 09/24/24 History (Valcyte) Allergies Allergy/AdvReac Type Severity Reaction Status Date / Time sulfamethoxazole Allergy Unknown Unknown Verified 07/25/23 06:12 [From Bactrim] trimethoprim [From Bactrim] Allergy Unknown Unknown Verified 07/25/23 06:12 lidocaine Allergy Unknown Verified 09/24/24 14:19 metformin AdvReac Mild diarrhea, Verified 07/25/23 06:12 vomiting PFSH Acute 2 PFSH: Medical History Pseudomonas pneumonia COVID-19 Morbid obesity with BMI of 45.0-49.9, adult ARDS (adult respiratory distress syndrome) Hyperlipidemia Depression Seasonal allergies Small fiber neuropathy Benign atrial arrhythmia Chronic nausea Related to gastroparesis and diabetes. Essential (primary) hypertension GERD (gastroesophageal reflux disease) Asthma Chronic pain syndrome Fibromyalgia Spinal cord stimulator status PAIN PUMP Surgical History S/P appendectomy S/P tubal ligation S/P section Family History Other Diabetes Hypertension Social History Smoking and tobacco/nicotine status: never used tobacco/nicotine Alcohol intake: never Substance/Drug Use: never Do you think of yourself as: Straight/Heterosexual Current gender identity: Female Vitals/I&O/Wt Last Vital Signs Temp 98.1 F 09/24/24 14:16 Pulse 85 09/24/24 15:49 Resp 18 09/24/24 15:09 BP 161/88 09/24/24 15:04 Pulse Ox 95 09/24/24 15:49 O2 Del Method Room Air 09/24/24 14:16 Weight last 48 hrs Weight 122.47 kg Physical Exam 2 Const: COMMON NORMALS: no acute distress and patient oriented x3 Eye: COMMON NORMALS: Equal, round and reactive pupils present Neck/C-Spine: COMMON NORMALS: no JVD Lymph: OTHER: CERVICAL LYMPHADENOPATHY Resp: COMMON NORMALS: normal respiratory effort, No retractions, No use of accessory muscles and clear to auscultation bilaterally AUSCULTATION: clear to auscultation bilaterally Cardio: COMMON NORMALS: regular rate, regular rhythm, S1 normal heart sound present and S2 normal heart sound present RATE: regular rate RHYTHM: r egular rhythm HEART SOUNDS: S1 normal heart sound present and S2 normal heart sound present GI: COMMON NORMALS: Normal to inspection, nondistended, normoactive bowel sounds present, Soft to palpation and non-tender OTHER: SURGICAL SITE/SCAR LOOKS CLEAN AND DRY Extremity: COMMON NORMALS: no pedal edema Neuro: COMMON NORMALS: patient oriented x3, CN's II-XII intact bilaterally and moves all extremities Psych: COMMON NORMALS: mental status grossly normal Data 09/24/24 15:13 09/24/24 15:13 A&P Assessment and plan (1) Intractable nausea and vomiting: (2) Acute renal failure: (3) History of liver transplant: (4) Fibromyalgia: (5) Small fiber neuropathy: Plan Intractable nausea vomiting -With acute renal failure -With hyponatremia, likely from dehydration -Etiology unclear -CT chest abdomen pelvis, Pro-Andrez, CRP, CPK, sed rate, -Consult nephrology -IV fluids at 125 cc an hour -Renal ultrasound -CPK -Nausea control -Reglan -ZOFRAN -promethazine Leukocytosis 11.88 -With complaints of fevers and chills -CT imaging as above -Broad-spectrum antibiotic therapy vancomycin, Zosyn -Follow respiratory viral panel -Follow blood cultures -UA Hyperglycemia -No significant evidence of DKA or HHS, pH within normal limits, bicarb within normal limits anion gap 24.8 -Decrease Lantus to 30 units daily -High-dose sliding scale Small fiber neuropathy, fibromyalgia -Patient does not know what her morphine and bupivacaine pump is set at -Discussed pain control, she did not tolerate morphine in the emergency room -we will watch her pain control closely, as were giving her IV morphine with her morphine pump as her pain currently is not under control -Monitor closely for opiate overdose -Will have to contact her morphine/bupivacaine, company to see if they can come to the hospital to refill her chamber which should be refilled in 2 to 3 days, will have to discuss with hospital administration History of liver transplant -For history of liver cancer -Has had 5 ERCPs for surveillance all within normal limits -Patient has brought in all her rejection medication ? Continue Prograf ? She is off prednisone ? Continue Myfortic ? Continue atovaquone ? Continue valacyclovir, -Liver function within normal limits -ER provider has reached out to liver transplant team at [place], recommended medical management no need for transfer at this time Attestations 2 Medical Necessity Statement*: Patient requires hospitalization for intractable nausea vomiting, acute renal failure, inpatient, greater than 2 midnights Diagnoses Intractable nausea and vomiting R11.2 Acute renal failure N17.9 History of liver transplant Z94.4 Fibromyalgia M79.7 Small fiber neuropathy G62.9
[2024-09-24 17:18] LABS: Erythrocyte Sedimentation Rate 3 mm/hr (0-15); Procalcitonin 0.12 ng/mL (0-0.5)
[2024-09-24] MEDS: acetaminophen 325 mg Tablet PO (17:30)
[2024-09-24] MEDS: metoclopramide 5 mg/mL SDV 2 mL IVP (17:30)
[2024-09-24 17:45] LABS: INR 0.93 (0.8-1.2)
[2024-09-24 17:46] LABS: Troponin(5th) Baseline 53 ng/L (0-10)
[2024-09-24 17:50] LABS: Lactic Sepsis W/Reflex 1.7 mmol/L (0.5-2.2)
[2024-09-24 18:00] LABS: Bilirubin Urine Negative (Negative); Blood Urine Negative (Negative); Glucose Urine UA 3+ (Normal); Ketones Urine Trace (Negative); Leukocyte Esterase Urine Negative (Negative); Nitrate Urine Negative (Negative); Protein Urine Trace (Negative); Specific Gravity, Urine 1.028 (1.005-1.030); Urine Appearance Cloudy (CLEAR); Urine Color Dark Yellow (Yellow)
[2024-09-24 18:05] LABS: Add Urine Microscopic? YES; Hyaline Casts Urine 35.14 /lpf; RBC Urine 0-2 /hpf (0-2); Squamous Epithelial Cell Urine 0-5 /hpf (0-5); WBC Urine 0-5 /hpf (0-5)
[2024-09-24 18:16] LABS: UA Slide Review UA Slide Review Perf
[2024-09-24 18:17] LABS: Bacteria Urine 2+ /hpf
[2024-09-24 18:17] LABS: Chol HDL Ratio 4.91 mg/dL (0.0-4.40); Cholesterol 275 mg/dL (0-200); Creatine Phosphokinase 52 U/L (26-192); HDL Cholesterol 56 mg/dL (60-100); LDL Cholesterol Calculated 170 mg/dL (50-129); LDL HDL Ratio 3.04 RATIO (0.00-3.22); NT Pro B Type Natriuretic Pept 1225 pg/mL (0-125); Triglycerides 243 mg/dL (0-150)
[2024-09-24 18:24] LABS: Troponin 5 2HR 54.72 ng/L (0-10); Troponin 5 2HR Delta 1.72 ABS# (0-10)
[2024-09-24 18:26] LABS: Ammonia 21 umol/L (11-51)
--- NOTE | 2024-09-24 18:59 | PM.CONSULT ---
Providers/Reason For Consult Consulting Physician/Specialty*: kommana /Nephrology Reason for Consult*: GOMEZ Attending Physician: Chneg Manley MD Primary Care Provider: En Dowell DO History of Present Illness History of Present Illness Keily Foley is a 44 year old female Patient is a 44-year-old female with past medical history of CHF, hepatocellular carcinoma status post liver transplant 7 months ago on the medial side pressure, presented to the emergency department due to intractable nausea vomiting and also with subjective fevers and chills. Lab data significant for white count of 11,000, sodium [address] abdomen pelvis no evidence of acute findings. Patient is admitted for further management. Review of Systems Narrative: Other ROS negative Medications/Allergies Home Medications Medication Instructions Recorded Confirmed Last Taken Type aspirin 81 mg tablet,delayed 81 mg PO BEDTIME 09/11/19 09/24/24 09/23/24 History release blood sugar diagnostic (Blood #100 ea 03/18/20 09/24/24 Unknown Rx Glucose Test strips) blood-glucose meter (Blood Glucose #1 ea 03/18/20 09/24/24 Unknown Rx Monitoring kit) Bupivacaine 10.66mg/Ml See Rx Instructions .Route .COMPLEX 03/23/21 09/24/24 09/24/24 History acetaminophen 500 mg tablet 1,000 mg PO PRN 03/23/21 09/24/24 Unknown History (Tylenol Extra Strength) atorvastatin 20 mg tablet 20 mg PO BEDTIME 03/23/21 09/24/24 Unknown History cetirizine 10 mg tablet 10 mg PO DAILY 03/23/21 09/24/24 09/24/24 History furosemide 20 mg tablet 20 mg PO DAILY PRN Edema 03/23/21 09/24/24 Unknown History omeprazole 20 mg capsule,delayed 40 mg PO BEDTIME 03/23/21 09/24/24 09/23/24 History release ondansetron HCl 8 mg tablet 8 mg PO Q8H PRN Nausea And Vomiting 03/23/21 09/24/24 09/24/24 History polyethylene glycol 3350 17 17 g PO DAILY PRN Constipation 03/23/21 09/24/24 Unknown History gram/dose oral powder ferrous gluconate 324 mg (37.5 mg 324 mg PO EVERY OTHER DAY #15 tabs 05/02/21 09/24/24 09/23/24 Rx iron) tablet pen needle, diabetic 31 gauge x ##100 02/12/22 09/24/24 Unknown Rx /16 (TechLITE Pen Needle) albuterol sulfate 90 mcg/actuation 1 puff inhalation Q6H PRN 09/24/24 09/24/24 Unknown History aerosol inhaler (Ventolin HFA) Shortness Of Breath Or Wheezing amitriptyline 10 mg tablet 10 mg PO DAILY 09/24/24 09/24/24 09/23/24 History atovaquone 750 mg/5 mL oral 360 mg PO DAILY 09/24/24 09/24/24 09/23/24 History suspension (Mepron) carvedilol 25 mg tablet 25 mg PO BID 09/24/24 09/24/24 09/24/24 History fluticasone 250 mcg-salmeterol 50 1 ea inhalation BID 09/24/24 09/24/24 09/23/24 History mcg/dose blistr powdr for inhalation (Advair Diskus) insulin glargine 100 unit/mL (3 69 unit SUBCUT DAILY 09/24/24 09/24/24 09/23/24 History mL) subcutaneous pen (Lantus Solostar U-100 Insulin) insulin lispro 100 unit/mL See Rx Instructions .Route .COMPLEX 09/24/24 09/24/24 09/24/24 History subcutaneous pen morphine 8 mg/mL intravenous See Rx Instructions .Route 09/24/24 09/24/24 09/24/24 History syringe .COMPLEX PRN Pain mycophenolate sodium 360 mg 360 mg PO BID 09/24/24 09/24/24 09/24/24 History tablet,delayed release (Myfortic) oxycodone 10 mg tablet,oral ONLY 10 mg PO Q4H PRN Pain 09/24/24 09/24/24 09/23/24 History (not feeding tubes) sennosides 8.6 mg-docusate sodium 1 tab-cap PO TID PRN constipation 09/24/24 09/24/24 09/23/24 History 50 mg tablet tacrolimus 1 mg capsule, 3 mg PO Q12H 09/24/24 09/24/24 09/24/24 History immediate-release (Prograf) tiotropium bromide 18 mcg capsule 1 cap inhalation QPM 09/24/24 09/24/2409/23/25 History with inhalation device (Spiriva with HandiHaler) valganciclovir 450 mg tablet 450 mg PO DAILY 09/24/24 09/24/24 09/24/24 History (Valcyte) Allergies Allergy/AdvReac Type Severity Reaction Status Date / Time sulfamethoxazole Allergy Unknown Unknown Verified 07/25/23 06:12 [From Bactrim] trimethoprim [From Bactrim] Allergy Unknown Unknown Verified 07/25/23 06:12 lidocaine Allergy Unknown Verified 09/24/24 14:19 metformin AdvReac Mild diarrhea, Verified 07/25/23 06:12 vomiting PFSH Acute PFSH: Medical History Pseudomonas pneumonia COVID-19 Morbid obesity with BMI of 45.0-49.9, adult ARDS (adult respiratory distress syndrome) Hyperlipidemia Depression Seasonal allergies Small fiber neuropathy Benign atrial arrhythmia Chronic nausea Related to gastroparesis and diabetes. Essential (primary) hypertension GERD (gastroesophageal reflux disease) Asthma Chronic pain syndrome Fibromyalgia Spinal cord stimulator status PAIN PUMP Surgical History S/P appendectomy S/P tubal ligation S/P section Family History Other Diabetes Hypertension Social History Smoking and tobacco/nicotine status: never used tobacco/nicotine Alcohol intake: never Substance/Drug Use: never Do you think of yourself as: Straight/Heterosexual Current gender identity: Female Vitals/I&O/Wt Last Vital Signs Temp 98.1 F 09/24/24 14:16 Pulse 92 09/24/24 18:30 Resp 18 09/24/24 15:09 BP 95/49 09/24/24 18:30 Pulse Ox 95 09/24/24 18:30 O2 Del Method Room Air 09/24/24 14:16 Weight last 48 hrs Weight 122.47 kg Physical Exam Narrative: Patient is awake alert, no acute distress on room air HEENT: PERRLA Cardiac: S1-S2 regular rate and rhythm per report Lungs clear to auscultation per report Abdomen: Soft nontender nondistended No pedal edema Neuro: Patient awake alert oriented Urinary Catheter Management: Matthews: Cath Placed During This Visit: yes Reason for Continuing Indwelling Catheter: Acute Urinary Retention or Obstruction Urinary Catheter Date of Insertion: 09/24/24 Urinary Catheter Time of Insertion: 17:50 Data 09/24/24 15:13 09/24/24 15:13 Micro: Microbiology 09/24/24 17:22 Blood Culture - Preliminary Blood SPECIMEN COLLECTED 09/24/24 17:17 Blood Culture - Preliminary Blood SPECIMEN COLLECTED A&P Assessment and plan (1) Acute renal failure: 1. Plan Acute kidney injury: Baseline creatinine is normal at 0.4 few months ago, patient now has GOMEZ with a creatinine of 2.6-likely prerenal in the setting of nausea vomiting and poor p.o. intake.. Agree with IV fluid resuscitation. No hydronephrosis on CT. UA with 3+ glucose, negative blood -Continue to monitor renal function on IV fluids History of liver transplant secondary to hepatocellular carcinoma: On mycophenolate and tacrolimus, also on Valcyte and atovaquone for prophylaxis. Check tacrolimus levels Hyponatremia: Hypovolemic sodium 127 on presentation, check urine sodium and urine osmolality Diabetes type 2: Poorly controlled with A1c of 9.0 Patient evaluated using audiovisual cart. Time spent 40 minutes. Coding Level of Care Code Acute Code for [facility] Fwd Diagnoses Acute renal failure N17.9
[2024-09-24 19:38] LABS: Estmated Average Glucose 212
[2024-09-24 19:56] LABS: Adenovirus Not Detected (NOT DETECT); Chlamydia Pneumoniae Not Detected (NOT DETECT); Coronavirus 229E,HKU1,NL63,OC4 Not Detected (NOT DETECT); Human Metapneumovirus Not Detected (NOT DETECT); Human Rhinovirus/Enterovirus Not Detected (NOT DETECT); Influenza A Not Detected (NOT DETECT); Influenza A H1 Not Detected (NOT DETECT); Influenza A H1-2009 Not Detected (NOT DETECT); Influenza A H3 Not Detected (NOT DETECT); Influenza B Not Detected (NOT DETECT); Mycoplasma Pneumoniae Not Detected (NOT DETECT); Parainfluenza Virus Type 1 Not Detected (NOT DETECT); Parainfluenza Virus Type 2 Not Detected (NOT DETECT); Parainfluenza Virus Type 3 Not Detected (NOT DETECT); Parainfluenza Virus Type 4 Not Detected (NOT DETECT); Respiratory Syncytial Virus A Not Detected (NOT DETECT); Respiratory Syncytial Virus B Not Detected (NOT DETECT); SARS-COV-2 Not Detected (NOT DETECT)
[2024-09-24 20:27] LABS: Glucose Point of Care 361 mg/dL (70-110)
[2024-09-24 20:45] LABS: Thyroid Stimulating Hormone 0.68 uIU/mL (0.27-4.20)
[2024-09-24] MEDS: piperacillin-tazobactam 3.375 GM in sodium chloride 0.9% (plus) 50 ML IV (20:47)
[2024-09-24] MEDS: pantoprazole 40 mg SDV IVP (20:50)
[2024-09-24] MEDS: enoxaparin 40 mg/0.4 mL Syringe SUBCUT (20:51)
[2024-09-24] MEDS: insulin glargine 100 units/1 mL 30 UNIT SUBCUT (20:52)
[2024-09-24] MEDS: insulin lispro 100 unit/1 mL SUBCUT (21:01)
--- NOTE | 2024-09-24 21:07 | PHA.VACGOAL ---
Vancomycin Goal - Goal Vancomycin Goal:: 15-20 mg/L Vancomycin Indication:: Other - Therapy Current therapy:: Pip/Tazo Day of therpy:: Day [1]of [] . Actual body weight (kg): 118.586 kg - Data Labs: WBC 11.88 10^3/uL (3.29-11.43) H 09/24/24 15:13 RBC 6.27 10^6/uL (3.85-5.65) H 09/24/24 15:13 Hgb 16.40 g/dL (11.27-16.99) 09/24/24 15:13 Hct 48.6 % (36-47) H 09/24/24 15:13 MCV 77.5 fl (85-98) L 09/24/24 15:13 MCH 26.2 pg (27-33) L 09/24/24 15:13 MCHC 33.7 g/dL (30-55) 09/24/24 15:13 RDW 19.9 % (12.1-15.1) H 09/24/24 15:13 Sodium 127 mmol/L (136-145) L 09/24/24 15:13 Potassium 4.8 mmol/L (3.5-5.1) 09/24/24 15:13 Chloride 85 mmol/L (98-107) L 09/24/24 15:13 Carbon Dioxide 22 mmol/L (22-29) 09/24/24 15:13 Anion Gap 24.8 (5-19) H 09/24/24 15:13 BUN 45 mg/dL (6-20) H 09/24/24 15:13 Creatinine 2.6 mg/dL (0.5-0.9) H 09/24/24 15:13 GFR Calculation 20.0 mL/min (90-130) L 09/24/24 15:13 Treatment plan:: new consult Regimen:: No history of vancomycin found. Received 3000 mg load dose. Patient's normal Scr is ~0.6 mg/dL. Current SCr is 2.6 mg/dL. Due to GOMEZ will dose patient with Intermittent Dosing Post Load . Vancomycin level ordered for 09/25 @2029.
--- NOTE | 2024-09-24 22:18 | ECG_ITS ---
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 Measurements Intervals [place] Rate: 90 P: 40 VA: 157 QRS: -5 QRSD: 92 T: 6 QT: 383 QTc: 470 Interpretive Statements SINUS RHYTHM POSSIBLE LEFT ATRIAL ENLARGEMENT [-0.1mV P-WAVE IN V1/V2] INCOMPLETE RIGHT BUNDLE BRANCH BLOCK [90+ ms QRS DURATION, TERMINAL R IN V1/V2, 40+ ms S IN I/aVL/V4/V5/V6] Compared to ECG 09/24/2024 17:36:05 No significant changes Electronically Signed On 09-29-2024 13:53:10 DIRECTOR OF CAPITAL GIVING by Mohamud Porter M.D. [id number]
[2024-09-24 22:44] LABS: Troponin 5 6HR 55.26 ng/L (0-10); Troponin 5 6HR Delta 2.26 ng/L (0-12)
[2024-09-24] MEDS: vancomycin 3,000 MG/600 ML PIGGYBACK 200 MG IV (22:46)
[2024-09-24] MEDS: morphine 4 mg/mL SDV 1 mL 2 MG IVP (22:55)
[2024-09-24] MEDS: sodium chloride 0.9% 1,000 ML 125 ML IV (22:57)
[2024-09-25] VITALS (7 sets, daily range): BP systolic 104–155; BP diastolic 67–93; PULSE 82–87; RESP 16–18; TEMP 36.4–36.7; O2SAT 96–99
[2024-09-25] MEDS: carvedilol 25 mg Tablet PO ×2 (02:16→14:27)
[2024-09-25] MEDS: aspirin 81 mg EC Tablet PO (02:16)
[2024-09-25] MEDS: ondansetron 2 mg/ML SDV 2 mL 4 MG IVP ×3 (04:16→23:00)
[2024-09-25] MEDS: piperacillin-tazobactam 3.375 GM in sodium chloride 0.9% (plus) 50 ML IV ×3 (04:17→21:40)
[2024-09-25 06:26] LABS: Glucose Point of Care 221 mg/dL (70-110)
[2024-09-25 07:12] LABS: Basophils # 0.1 10^3/uL (0.0-0.1); Basophils % 0.7 %; Eosinophils # 0.1 10^3/uL (0.0-0.8); Eosinophils % 1.3 %; Hematocrit 43.5 % (36-47); Lymphocytes # 1.4 10^3/uL (0.8-4.8); Lymphocytes % 16.4 %; Mean Corpuscular HGB Conc 32.4 g/dL (30-55); Mean Corpuscular Hemoglobin 26.2 pg (27-33); Mean Corpuscular Volume 80.9 fl (85-98); Mean Platelet Volume 10.7 fL (7.4-10.4); Monocytes # 0.7 10^3/uL (0.2-0.9); Monocytes % 8.2 %; Neutrophils # 6.09 10^3/uL (1.8-7.7); Neutrophils % 73.2 %; Nucleated Red Blood Cells % 0 %; Platelet Count 203 10^3/cmm (157-399); Red Blood Count 5.38 10^6/uL (3.85-5.65); Red Cell Distribution Width 19.6 % (12.1-15.1); White Blood Count 8.33 10^3/uL (3.29-11.43)
--- NOTE | 2024-09-25 07:29 | P.PN_ITS ---
Subjective 2 Subjective: nausea improving. not eating. no sob or cp or guerra. dec abd pain. no edema. no sob. weak Medications: Reviewed: Yes Medication Review Details: Current Medications Aspirin (Aspirin 81 Mg Ec Tablet) 81 mg PO BEDTIME [facility] Last Admin: 09/25/24 02:16 Dose: 81 mg Atorvastatin Calcium (Atorvastatin 40 Mg Tablet) 20 mg PO BEDTIME [facility] Last Admin: 09/24/24 22:05 Dose: Not Given Carvedilol (Carvedilol 25 Mg Tablet) 25 mg PO BID [facility] Last Admin: 09/25/24 02:16 Dose: 25 mg Enoxaparin Sodium (Enoxaparin 40 Mg/0.4 Ml Syringe) 40 mg SUBCUT Q24H [facility] Last Admin: 09/24/24 20:51 Dose: 40 mg Glucagon (Glucagon 1 Mg/Ml Kit 1 Ml) 1 mg IM ONCE PRN; Protocol PRN Reason: Adult Acute Hypoglycemia Nursing Prot. Sodium Chloride (Sodium Chloride 0.9%) 1,000 mls @ 125 mls/hr IV .Q8H [facility] Last Admin: 09/24/24 22:57 Dose: 125 mls/hr Dextrose (D5w) 500 mls @ 0 mls/hr IV ONCE PRN; Protocol PRN Reason: Adult Acute Hypoglycemia Prot Dextrose (D10w) 125 mls @ 750 mls/hr IV PRN PRN; Protocol PRN Reason: Adult Acute Hypoglycemia Nursing Protocol Dextrose (D10w) 250 mls @ 1,000 mls/hr IV PRN PRN; Protocol PRN Reason: Adult Acute Hypoglycemia Nursing Protocol Piperacillin Sod/Tazobactam (Sod 3.375 gm/ Sodium Chloride) 50 mls @ 12.5 mls/hr IV Q8H [facility] Last Admin: 09/25/24 04:17 Dose: 12.5 mls/hr Insulin Glargine (Insulin Glargine 100 Units/1 Ml) 30 unit SUBCUT DAILY [facility] Last Admin: 09/24/24 20:52 Dose: 30 unit Insulin Human Lispro (Insulin Lispro 100 Unit/1 Ml) 0 unit SUBCUT WM&BEDTIME [facility]; Protocol Last Admin: 09/24/24 22:03 Dose: Not Given Morphine Sulfate (Morphine 4 Mg/Ml Sdv 1 Ml) 2 mg IVP Q4H PRN PRN Reason: SEVERE PAIN Last Admin: 09/24/24 22:55 Dose: 2 mg Naloxone HCl (Naloxone 0.4 Mg/Ml Sdv) 0.1 mg IVP Q2M PRN PRN Reason: OPIATERV Non-Formulary Medication (Amitriptyline) 10 mg PO DAILY [place] Non-Formulary Medication (Atovaquone [Mepron]) 360 mg PO DAILY [place] Non-Formulary Medication (Bupivacaine 10.66mg/Ml) 0 vial .ROUTE .COMPLEX [place] Non-Formulary Medication (Morphine) 0 mg .ROUTE .COMPLEX PRN PRN Reason: Pain Non-Formulary Medication (Mycophenolate Sodium [Myfortic]) 360 mg PO BID [place] Non-Formulary Medication (Tacrolimus [Prograf]) 3 mg PO Q12H [place] Non-Formulary Medication (Valganciclovir [Valcyte]) 450 mg PO DAILY [facility] Ondansetron HCl (Ondansetron 2 Mg/Ml Sdv 2 Ml) 4 mg IVP Q8H PRN PRN Reason: vomiting, or N/V if npo Last Admin: 09/25/24 04:16 Dose: 4 mg Pantoprazole Sodium (Pantoprazole 40 Mg Sdv) 40 mg IVP Q24H [facility] Last Admin: 09/24/24 20:50 Dose: 40 mg Promethazine HCl (Promethazine 25 Mg/Ml Sdv 1 Ml) 12.5 mg IM Q6H PRN PRN Reason: NAUSEA Vancomycin HCl (Vancomycin 1,000 Mg Sdv (Pharmacy Mix)) 0 mg XX PRN PRN PRN Reason: Pharmacy to Dose Vitals/I&O/Wt Last Vital Signs Temp 98.1 F 09/25/24 07:23 Pulse 86 09/25/24 07:23 Resp 18 09/25/24 07:23 BP 138/70 09/25/24 07:23 Pulse Ox 99 09/25/24 07:23 O2 Del Method Nasal Cannula 09/25/24 07:23 09/24/24 09/25/24 09/25/24 22:59 06:59 14:59 Intake Total 1410 / 1410 960 / 2370 Output Total 600 / 600 200 / 800 Balance 810 / 810 760 / 1570 Weight last 48 hrs Weight 118.75 kg Weight 118.586 kg Weight 122.47 kg Physical Exam 2 Narrative: Obese lady in bed comfortable vital signs noted. HEENT normocephalic atraumatic Neck is supple no JVP no carotid bruit. Lungs are clear to auscultation. Heart is regular no rubs or gallops. Abdomen is soft mild diffuse tenderness multiple surgical scars. Bowel sounds present. Extremities have no edema. Neuro awake alert oriented x 3. Pulses are palpable. Patient was seen and examined using audiovisual equipment with the aid of a nurse. Urinary Catheter Management: Matthews: Cath Placed During This Visit: yes Reason for Continuing Indwelling Catheter: Acute Urinary Retention or Obstruction Urinary Catheter Date of Insertion: 09/24/24 Urinary Catheter Time of Insertion: 17:50 Data 09/25/24 06:50 09/24/24 15:13 Micro: Microbiology 09/24/24 17:22 Blood Culture - Preliminary Blood SPECIMEN COLLECTED 09/24/24 17:17 Blood Culture - Preliminary Blood SPECIMEN COLLECTED A&P Assessment and plan (1) Acute renal failure: 44-year-old lady obesity CHF status post liver transplant 7 months ago patient is followed at [facility] Patient was admitted with 3 days of nausea and vomiting fevers and chills patient was found to have hyponatremia and acute kidney injury. 1 acute kidney injury differential diagnosis prerenal azotemia versus ATN. No hydronephrosis on CT scan. Creatinine remains elevated even after IV fluids. Patient has developed a metabolic acidosis non-anion gap. Likely from acute kidney injury. -Urinalysis 3+ glucose, trace protein no blood -immunosupressants can cause GOMEZ- but usually after longer time -monitor tacrolimus trough- 1 hr pre am dose 2. Hyponatremia-Await urine electrolytes. Continue fluid restriction. give ivf -renal dose abx meds reviewed seen and examined w/ RN using A/V equipment pt consents to telehealth Qualifiers: Acute renal failure type: unspecified Qualified Code(s): N17.9 - Acute kidney failure, unspecified Plan ivf, abx Attestations 2 Medical Necessity Statement*: gomez, n/v Time Spent in Patient Care: 16 - 35 minutes (>than 50% of time sp ent in counselling and/or direct pt care on unit) . Coding Level of Care Code Acute Code for [facility] Diagnoses Acute renal failure, unspecified acute renal failure type N17.9 Acute renal failure type: unspecified
[2024-09-25 07:30] LABS: Alanine Aminotransferase 14 U/L (0-33); Albumin Level 3.8 g/dL (3.5-5.2); Alkaline Phosphatase 77 U/L (35-105); Aspartate Amino Transferase 12 U/L (0-32); Blood Urea Nitrogen 52 mg/dL (6-20); Calcium 8.9 mg/dL (8.5-10.5); Carbon Dioxide 19 mmol/L (22-29); Chloride 93 mmol/L (98-107); Creatinine Clr Calc Pharmacy 37.7694; Globulin 2.5 g/dL (1.3-4.6); Glomerular Filtration Rate 19.1 mL/min (90-130); Glucose 220 mg/dL (65-115); Magnesium 1.9 mg/dL (1.7-2.3); Osmolality Calculated 293 mOsm/kg (285-295); Phosphorus 4.4 mg/dL (2.5-4.5); Sodium 131 mmol/L (136-145); Total Bilirubin 0.6 mg/dL (0.15-1.2); Total Protein 6.3 g/dL (6.6-8.7)
[2024-09-25 08:01] LABS: Uric Acid 8.5 mg/dL (2.4-5.7)
[2024-09-25] MEDS: promethazine 25 mg/mL SDV 1 mL 12.5 MG IM (08:37)
[2024-09-25] MEDS: lactated ringers 1,000 ML 100 ML IV (08:39)
[2024-09-25] MEDS: insulin lispro 100 unit/1 mL SUBCUT ×4 (08:39→21:52)
--- NOTE | 2024-09-25 08:43 | USCV_ITS ---
Keily Foley Age: 44 Gender: F : 1980 Exam Date: 09/25/2024 10:43 Ordering Phys: Cheng Manley MD Technologist: Exam Location: [facility] [place] Indication: htn mk Aortic Velocity @ SMA (cm/s) 79.2 RIGHT KIDNEY LEFT KIDNEY Velocity (cm/s) Velocity (cm/s) Sys/Mascorro Sys/Mascorro Resistive Index Resistive Index 29.0 / 10.0 0.64 Proximal Renal Artery 55.0 / 20.0 0.63 31.0 / 10.0 0.68 Mid Renal Artery 44.0 / 19.0 0.56 31.0 / 10.0 0.68 Distal Renal Artery 53.0 / 23.0 0.57 25.0 / 8.7 0.65 Hilar 51.0 / 17.0 0.65 14.3 / 5.0 0.65 Upper Pole 44.0 / 19.0 0.56 29.0 / 8.0 0.70 Mid Pole 48.0 / 22.0 0.54 22.7 / 7.0 0.66 Lower Pole 41.0 / 19.0 0.54 0.50 Renal Aortic Ratio 0.50 Accleration Time (sec) 120.00 Hilar 266.00 80.90 Upper Pole 460.00 205.00 Mid Pole 161.00 115.00 Lower Pole 116.00 11.5 Kidney Length (cm) 9.9 CONCLUSIONS No sonographic evidence of hemodynamically significant renal artery stenosis bilaterally based on velocity criteria. No hydronephrosis Compared to prior study. Vadim Morelos MD (Electronically Signed) Final Date: 25 September 2024 17:00 S
[2024-09-25 11:40] LABS: Glucose Point of Care 223 mg/dL (70-110)
[2024-09-25] MEDS: TRAMadol 50 mg Tablet PO (12:15)
--- NOTE | 2024-09-25 13:19 | PC.NURSE ---
This HS spoke with Dr Manley and with Sujatha-pharmacy consultant, to see what actions needed to be taken in order for the patient's Bupivacaine and Morphine pumps could be refilled by an already established outside company. Sujatha told this HS that the patient's outside company may come and refill each of her [employer] pumps, while she is currently admitted as a patient into [facility]. Dr Manley notified of conversation/update.
[2024-09-25 13:49] LABS: Anion Gap 19.7 (5-19); Blood Urea Nitrogen 49 mg/dL (6-20); Carbon Dioxide 22 mmol/L (22-29); Chloride 92 mmol/L (98-107); Creatinine Clr Calc Pharmacy 40.7909; Glomerular Filtration Rate 20.9 mL/min (90-130); Glucose 246 mg/dL (65-115); Osmolality Calculated 291 mOsm/kg (285-295); Potassium 3.7 mmol/L (3.5-5.1); Sodium 130 mmol/L (136-145)
[2024-09-25 16:31] LABS: Glucose Point of Care 217 mg/dL (70-110)
--- NOTE | 2024-09-25 17:14 | P.PN_ITS ---
Subjective 2 Subjective: Patient was seen this morning, she is alert oriented x 3, following all commands, denies any fevers, did have chills, nausea is more under control no abdominal pain, no flank pain, Matthews catheter placed, had 800 cc out, we discussed her creatinine elevated to 2.7 this morning, will recheck this afternoon, order renal ultrasound, for now continue antibiotics until blood cultures are -48 hours, CT chest abdomen pelvis was unrevealing for any infectious etiology Vitals/I&O/Wt Last Vital Signs Temp 97.6 F 09/25/24 15:29 Pulse 84 09/25/24 15:29 Resp 16 09/25/24 15:29 BP 125/82 09/25/24 15:29 Pulse Ox 98 09/25/24 15:29 O2 Del Method Nasal Cannula 09/25/24 15:29 09/25/24 09/25/24 09/25/24 06:59 14:59 22:59 Intake Total 960 / 2370 1650 / 1650 50 / 1700 Output Total 200 / 800 1000 / 1000 Balance 760 / 1570 1650 / 1650 -950 / 700 Weight last 48 hrs Weight 118.75 kg Weight 118.586 kg Weight 122.47 kg Physical Exam 2 Const: COMMON NORMALS: no acute distress and patient oriented x3 Resp: COMMON NORMALS: normal respiratory effort, No retractions, No use of accessory muscles and clear to auscultation bilaterally AUSCULTATION: clear to auscultation bilaterally Cardio: COMMON NORMALS: regular rate, regular rhythm, S1 normal heart sound present and S2 normal heart sound present RATE: regular rate RHYTHM: r egular rhythm HEART SOUNDS: S1 normal heart sound present and S2 normal heart sound present GI: COMMON NORMALS: Normal to inspection, nondistended, normoactive bowel sounds present and non-tender Extremity: COMMON NORMALS: no pedal edema Neuro: COMMON NORMALS: patient oriented x3 Psych: COMMON NORMALS: mental status grossly normal Urinary Catheter Management: Matthews: Cath Placed During This Visit: yes Reason for Continuing Indwelling Catheter: Acute Urinary Retention or Obstruction Urinary Catheter Date of Insertion: 09/24/24 Urinary Catheter Time of Insertion: 17:50 Data 09/25/24 06:50 09/25/24 13:23 Micro: Microbiology 09/24/24 17:22 Blood Culture - Preliminary Blood SPECIMEN COLLECTED 09/24/24 17:17 Blood Culture - Preliminary Blood SPECIMEN COLLECTED A&P Assessment and plan (1) Intractable nausea and vomiting: (2) Acute renal failure: Qualifiers: Acute renal failure type: unspecified Qualified Code(s): N17.9 - Acute kidney failure, unspecified (3) History of liver transplant: (4) Fibromyalgia: (5) Small fiber neuropathy: Plan Intractable nausea vomiting -With acute renal failure -With hyponatremia, likely from dehydration -Etiology unclear -CT chest abdomen pelvis, Pro-Andrez, CRP, CPK, sed rate, no acute findings -Consult nephrology -LR at 125 cc an hour -Renal ultrasound pending -CPK WNL -Nausea control -Reglan -ZOFRAN -promethazine Leukocytosis 11.88 -With complaints of fevers and chills -CT imaging no acute findings -Broad-spectrum antibiotic therapy vancomycin, Zosyn, until blood cultures are - 48 hours -Follow respiratory viral panel within normal limits -Follow blood cultures -UA within normal limits Hyperglycemia -No significant evidence of DKA or HHS, pH within normal limits, bicarb within normal limits anion gap 24.8 -Decrease Lantus to 30 units daily -High-dose sliding scale Small fiber neuropathy, fibromyalgia -Patient does not know what her morphine and bupivacaine pump is set at -Discussed pain control, she did not tolerate morphine in the emergency room -we will watch her pain control closely, as were giving her IV morphine with her morphine pump as her pain currently is not under control -Monitor closely for opiate overdose -Will have to contact her morphine/bupivacaine, company to see if they can come to the hospital to refill her chamber which should be refilled in 2 to 3 days, will have to discuss with hospital administration History of liver transplant -For history of liver cancer -Has had 5 ERCPs for surveillance all within normal limits -Patient has brought in all her rejection medication ? Continue Prograf ? She is off prednisone ? Continue Myfortic ? Continue atovaquone ? Continue valacyclovir, -Liver function within normal limits -ER provider has reached out to liver transplant team at [facility], recommended medical management no need for transfer at this time Attestations 2 Medical Necessity Statement*: Patient requires hospitalization for acute renal failure, intractable nausea vomiting, immunocompromise state with recent history of liver transplant Diagnoses Intractable nausea and vomiting R11.2 Acute renal failure, unspecified acute renal failure type N17.9 Acute renal failure type: unspecified History of liver transplant Z94.4 Fibromyalgia M79.7 Small fiber neuropathy G62.9
--- NOTE | 2024-09-25 18:37 | PC.NURSE ---
Pt has home medications at bedside, unlabeled. This RN encourages pt family to get bottles for pharmacy to verify and label. Family is unable to do this because of financial strain of gas [id number]. Verifies with Dr. Manley that administration of home medications at bedside is OK. Will discuss with case management possible options of getting medication bottles to facility tomorrow.
[2024-09-25 19:05] LABS: Potassium, Radom Urine 15 mmol/L; Urine Creatinine 109 mg/dL (28-217); Urine Random Sodium 44 mmol/L
[2024-09-25 19:33] LABS: Urine Random Chloride < 10 mmol/L
[2024-09-25 20:20] LABS: Glucose Point of Care 226 mg/dL (70-110)
[2024-09-25 21:06] LABS: Vancomycin Trough 28.5 ug/mL (10-15)
[2024-09-25] MEDS: pantoprazole 40 mg SDV IVP (21:44)
[2024-09-25] MEDS: enoxaparin 40 mg/0.4 mL Syringe SUBCUT (21:45)
[2024-09-25] MEDS: morphine 4 mg/mL SDV 1 mL 2 MG IVP (23:11)
[2024-09-26] VITALS (8 sets, daily range): BP systolic 99–177; BP diastolic 62–101; PULSE 78–86; RESP 15–17; TEMP 36.5–36.9; O2SAT 96–98
[2024-09-26] MEDS: aspirin 81 mg EC Tablet PO (02:21)
[2024-09-26] MEDS: lactated ringers 1,000 ML 100 ML IV ×3 (06:02→15:34)
[2024-09-26] MEDS: ondansetron 2 mg/ML SDV 2 mL 4 MG IVP ×3 (06:02→23:16)
[2024-09-26] MEDS: piperacillin-tazobactam 3.375 GM in sodium chloride 0.9% (plus) 50 ML IV ×3 (06:04→20:33)
[2024-09-26 06:09] LABS: Glucose Point of Care 214 mg/dL (70-110)
[2024-09-26 06:51] LABS: Basophils # 0.1 10^3/uL (0.0-0.1); Basophils % 1.2 %; Eosinophils # 0.2 10^3/uL (0.0-0.8); Eosinophils % 2.8 %; Hematocrit 41.3 % (36-47); Lymphocytes # 1.2 10^3/uL (0.8-4.8); Mean Corpuscular HGB Conc 32.7 g/dL (30-55); Mean Corpuscular Hemoglobin 26.7 pg (27-33); Mean Corpuscular Volume 81.6 fl (85-98); Mean Platelet Volume 11.2 fL (7.4-10.4); Monocytes # 0.5 10^3/uL (0.2-0.9); Monocytes % 7.5 %; Neutrophils # 4.79 10^3/uL (1.8-7.7); Neutrophils % 70.8 %; Nucleated Red Blood Cells % 0 %; Platelet Count 196 10^3/cmm (157-399); Red Blood Count 5.06 10^6/uL (3.85-5.65); Red Cell Distribution Width 19.6 % (12.1-15.1); White Blood Count 6.77 10^3/uL (3.29-11.43)
[2024-09-26 07:10] LABS: Alanine Aminotransferase 12 U/L (0-33); Albumin Level 3.6 g/dL (3.5-5.2); Alkaline Phosphatase 71 U/L (35-105); Aspartate Amino Transferase 11 U/L (0-32); Blood Urea Nitrogen 42 mg/dL (6-20); Calcium 9.2 mg/dL (8.5-10.5); Carbon Dioxide 24 mmol/L (22-29); Chloride 98 mmol/L (98-107); Creatinine Clr Calc Pharmacy 48.6293; Globulin 2.8 g/dL (1.3-4.6); Glomerular Filtration Rate 25.6 mL/min (90-130); Glucose 202 mg/dL (65-115); Osmolality Calculated 294 mOsm/kg (285-295); Phosphorus 4.6 mg/dL (2.5-4.5); Sodium 134 mmol/L (136-145); Total Bilirubin 0.5 mg/dL (0.15-1.2); Total Protein 6.4 g/dL (6.6-8.7)
[2024-09-26 07:13] LABS: Calcium 9.3 mg/dL (8.5-10.5)
[2024-09-26 07:15] LABS: Parathyroid Hormone 79.4 pg/mL (15-65)
[2024-09-26 07:24] LABS: 25 Hydroxy Vitamin D 7 ng/mL (30-100)
[2024-09-26 08:09] LABS: Glucose Point of Care 175 mg/dL (70-110)
[2024-09-26] MEDS: insulin lispro 100 unit/1 mL SUBCUT ×4 (08:21→20:40)
--- NOTE | 2024-09-26 08:47 | PM.PN ---
Subjective Subjective: still has nausea. is barely eating. no sob or cp or guerra or diarrhea. Medications: Reviewed: Yes Medication Review Details: Current Medications Aspirin (Aspirin 81 Mg Ec Tablet) 81 mg PO BEDTIME [facility] Last Admin: 09/26/24 02:21 Dose: 81 mg Atorvastatin Calcium (Atorvastatin 40 Mg Tablet) 20 mg PO BEDTIME [facility] Last Admin: 09/25/24 21:42 Dose: Not Given Carvedilol (Carvedilol 25 Mg Tablet) 25 mg PO 0200,1400 [facility] Last Admin: 09/26/24 02:22 Dose: Not Given Enoxaparin Sodium (Enoxaparin 40 Mg/0.4 Ml Syringe) 40 mg SUBCUT Q24H [facility] Last Admin: 09/25/24 21:45 Dose: 40 mg Glucagon (Glucagon 1 Mg/Ml Kit 1 Ml) 1 mg IM ONCE PRN; Protocol PRN Reason: Adult Acute Hypoglycemia Nursing Prot. Dextrose (D5w) 500 mls @ 0 mls/hr IV ONCE PRN; Protocol PRN Reason: Adult Acute Hypoglycemia Prot Dextrose (D10w) 125 mls @ 750 mls/hr IV PRN PRN; Protocol PRN Reason: Adult Acute Hypoglycemia Nursing Protocol Dextrose (D10w) 250 mls @ 1,000 mls/hr IV PRN PRN; Protocol PRN Reason: Adult Acute Hypoglycemia Nursing Protocol Piperacillin Sod/Tazobactam (Sod 3.375 gm/ Sodium Chloride) 50 mls @ 12.5 mls/hr IV Q8H [facility] Last Admin: 09/26/24 06:04 Dose: 12.5 mls/hr Lactated Ringer's (Lactated Ringers) 1,000 mls @ 100 mls/hr IV .Q10H [facility] Last Admin: 09/26/24 06:02 Dose: 100 mls/hr Insulin Glargine (Insulin Glargine 100 Units/1 Ml) 40 unit SUBCUT DAILY [facility] Insulin Human Lispro (Insulin Lispro 100 Unit/1 Ml) 0 unit SUBCUT WM&BEDTIME [facility]; Protocol Last Admin: 09/26/24 08:21 Dose: 6 unit Morphine Sulfate (Morphine 4 Mg/Ml Sdv 1 Ml) 2 mg IVP Q4H PRN PRN Reason: SEVERE PAIN Last Admin: 09/25/24 23:11 Dose: 2 mg Naloxone HCl (Naloxone 0.4 Mg/Ml Sdv) 0.1 mg IVP Q2M PRN PRN Reason: OPIATERV Non-Formulary Medication (Amitriptyline) 10 mg PO DAILY [facility] Non-Formulary Medication (Atovaquone [Mepron]) 360 mg PO DAILY [facility] Non-Formulary Medication (Bupivacaine 10.66mg/Ml) 0 vial .ROUTE .COMPLEX [facility] Non-Formulary Medication (Morphine) 0 mg .ROUTE .COMPLEX PRN PRN Reason: Pain Non-Formulary Medication (Mycophenolate Sodium [Myfortic]) 360 mg PO BID [facility] Non-Formulary Medication (Valganciclovir [Valcyte]) 450 mg PO DAILY [facility] Non-Formulary Medication Tacrolimus 3 Mg Capsule 3 each PO Q12H [facility] Ondansetron HCl (Ondansetron 2 Mg/Ml Sdv 2 Ml) 4 mg IVP Q8H PRN PRN Reason: vomiting, or N/V if npo Last Admin: 09/26/24 06:02 Dose: 4 mg Pantoprazole Sodium (Pantoprazole 40 Mg Sdv) 40 mg IVP Q24H [facility] Last Admin: 09/25/24 21:44 Dose: 40 mg Promethazine HCl (Promethazine 25 Mg/Ml Sdv 1 Ml) 12.5 mg IM Q6H PRN PRN Reason: NAUSEA Last Admin: 09/25/24 08:37 Dose: 12.5 mg Vancomycin HCl (Vancomycin 1,000 Mg Sdv (Pharmacy Mix)) 0 mg XX PRN PRN PRN Reason: Pharmacy to Dose Vitals/I&O/Wt Last Vital Signs Temp 98.5 F 09/26/24 08:00 Pulse 81 09/26/24 08:00 Resp 17 09/26/24 08:00 BP 160/89 09/26/24 08:00 Pulse Ox 97 09/26/24 08:00 O2 Del Method Room Air 09/26/24 08:00 09/25/24 09/26/24 09/26/24 22:59 06:59 14:59 Intake Total 1530 / 3180 125 / 3305 Output Total 1400 / 1400 Balance 130 / 1780 125 / 1905 Weight last 48 hrs Weight 119.068 kg Weight 118.75 kg Weight 118.586 kg Weight 122.47 kg Physical Exam Narrative: Obese lady in bed NARD - vital signs noted. HEENT normocephalic atraumatic Neck is supple no JVP no carotid bruit. Lungs are clear to auscultation. Heart is regular no rubs or gallops. Abdomen is soft mild diffuse tenderness multiple surgical scars. Bowel sounds present. Extremities have no edema. Neuro awake alert oriented x 3. Pulses are palpable. Patient was seen and examined using audiovisual equipment with the aid of a nurse. Urinary Catheter Management: Matthews: Cath Placed During This Visit: yes Reason for Continuing Indwelling Catheter: Accurate Measurement of Urinary Output in Critically Ill Patients Urinary Catheter Date of Insertion: 09/24/24 Urinary Catheter Time of Insertion: 17:50 Data 09/26/24 06:34 09/26/24 06:34 Micro: Microbiology 09/24/24 17:22 Blood Culture - Preliminary Blood NEGATIVE TO DATE 09/24/24 17:17 Blood Culture - Preliminary Blood NEGATIVE TO DATE A&P Assessment and plan (1) Acute renal failure: 44-year-old lady obesity CHF status post liver transplant 7 months ago patient is followed at [facility]. Patient was admitted with 3 days of nausea and vomiting fevers and chills patient was found to have hyponatremia and acute kidney injury. 1 acute kidney injury - working dx is prerenal azotemia -low ur chloride urine na was 44 afteer ivf -serum cr is improving - No hydronephrosis on CT scan. -immunosupressants can cause GOMEZ- but usually after longer time -monitor tacrolimus trough- 1 hr pre am dose 2. Hyponatremia- urine electrolytes noted. Continue fluid restriction. serum na improving w/ ivf -renal dose abx 3. replace vit d 4. liver tx- cont tacrolimus and check a trough meds reviewed seen and examined w/ RN using A/V equipment pt consents to telehealth Qualifiers: Acute renal failure type: unspecified Qualified Code(s): N17.9 - Acute kidney failure, unspecified Plan ivf, abx Attestations Medical Necessity Statement*: gomze, nausea after liver tx Time Spent in Patient Care: 16 - 35 minutes (>than 50% of time spent in counselling and/or direct pt care on unit). Coding Level of Care Code Acute Code for [facility] Diagnoses Acute renal failure, unspecified acute renal failure type N17.9 Acute renal failure type: unspecified
[2024-09-26] MEDS: insulin glargine 100 units/1 mL 40 UNIT SUBCUT (09:34)
[2024-09-26 11:27] LABS: Glucose Point of Care 237 mg/dL (70-110)
[2024-09-26 11:52] LABS: Glucose Point of Care 232 mg/dL (70-110)
[2024-09-26] MEDS: morphine 4 mg/mL SDV 1 mL 2 MG IVP ×2 (15:01→23:16)
[2024-09-26 15:09] LABS: Glucose Point of Care 237 mg/dL (70-110)
--- NOTE | 2024-09-26 15:10 | ECG_ITS ---
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 Measurements Intervals [place] Rate: 74 P: 30 [place]: 149 QRS: -16 QRSD: 92 T: -10 QT: 371 QTc: 414 Interpretive Statements SINUS RHYTHM MINIMAL VOLTAGE CRITERIA FOR LVH, CONSIDER NORMAL VARIANT [MEETS CRITERIA IN ONE OF: R(aVL), S(V1), R(V5), R(V5/V6)+S(V1)] Compared to ECG 09/26/2024 14:51:27 No significant changes Electronically Signed On 09-27-2024 11:15:15 REFINING ENGINEER by Mohamud Porter M.D. [email or web address]
[2024-09-26] MEDS: ALPRAZolam 0.5 mg Tablet 0.25 MG PO (15:32)
[2024-09-26 15:54] LABS: Troponin(5th) Baseline 44 ng/L (0-10)
[2024-09-26 16:17] LABS: Anion Gap 18.9 (5-19); Blood Urea Nitrogen 37 mg/dL (6-20); Calcium 9.2 mg/dL (8.5-10.5); Carbon Dioxide 22 mmol/L (22-29); Chloride 97 mmol/L (98-107); Creatinine Clr Calc Pharmacy 56.7342; Glomerular Filtration Rate 30.6 mL/min (90-130); Glucose 190 mg/dL (65-115); Osmolality Calculated 292 mOsm/kg (285-295); Potassium 3.9 mmol/L (3.5-5.1); Sodium 134 mmol/L (136-145)
[2024-09-26 16:30] LABS: Glucose Point of Care 200 mg/dL (70-110)
--- NOTE | 2024-09-26 17:10 | ECG_ITS ---
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 Measurements Intervals [place] Rate: 77 P: 49 [place]: 156 QRS: -4 QRSD: 92 T: -1 QT: 363 QTc: 411 Interpretive Statements SINUS RHYTHM Compared to ECG 09/24/2024 22:18:23 Incomplete right bundle-branch block no longer present Electronically Signed On 09-29-2024 13:42:37 REGULATORY AFFAIRS SPECIALIST by Mohamud Porter M.D. [id number]
--- NOTE | 2024-09-26 17:21 | P.PN_ITS ---
Subjective 2 Subjective: Patient was seen this morning, she still tells me she does not feel well, her appetite is improving, no fevers, no chills, no nausea, no vomiting, we discussed her getting her transplant medications for home, in terms of her bupivacaine and morphine pump, we have allowed her external company to come and refill the medication here in the hospital so she can get her medications, Vitals/I&O/Wt Last Vital Signs Temp 98.2 F 09/26/24 16:00 Pulse 85 09/26/24 16:00 Resp 17 09/26/24 16:00 BP 149/88 09/26/24 16:00 Pulse Ox 97 09/26/24 16:00 O2 Del Method Room Air 09/26/24 16:00 09/26/24 09/26/24 09/26/24 06:59 14:59 22:59 Intake Total 125 / 3305 770 / 770 953.334 / 1723.334 Output Total 1400 / 1400 Balance 125 / 1905 -630 / -630 953.334 / 323.334 Weight last 48 hrs Weight 119.068 kg Weight 118.75 kg Weight 118.586 kg Physical Exam 2 Const: COMMON NORMALS: no acute distress and patient oriented x3 Resp: COMMON NORMALS: normal respiratory effort, No retractions, No use of accessory muscles and clear to auscultation bilaterally AUSCULTATION: clear to auscultation bilaterally Cardio: COMMON NORMALS: regular rate, regular rhythm, S1 normal heart sound present and S2 normal heart sound present RATE: regular rate RHYTHM: r egular rhythm HEART SOUNDS: S1 normal heart sound present and S2 normal heart sound present GI: COMMON NORMALS: Normal to inspection, nondistended, normoactive bowel sounds present and non-tender Extremity: COMMON NORMALS: no pedal edema Neuro: COMMON NORMALS: patient oriented x3 Psych: COMMON NORMALS: mental status grossly normal Urinary Catheter Management: Matthews: Cath Placed During This Visit: yes Reason for Continuing Indwelling Catheter: Accurate Measurement of Urinary Output in Critically Ill Patients Urinary Catheter Date of Insertion: 09/24/24 Urinary Catheter Time of Insertion: 17:50 Data 09/26/24 06:34 09/26/24 15:28 Micro: Microbiology 09/24/24 17:22 Blood Culture - Preliminary Blood NEGATIVE TO DATE 09/24/24 17:17 Blood Culture - Preliminary Blood NEGATIVE TO DATE A&P Assessment and plan (1) Acute renal failure: Qualifiers: Acute renal failure type: unspecified Qualified Code(s): N17.9 - Acute kidney failure, unspecified (2) Intractable nausea and vomiting: (3) History of liver transplant: (4) Fibromyalgia: (5) Small fiber neuropathy: Plan Intractable nausea vomiting -With acute renal failure -With hyponatremia, likely from dehydration -Etiology unclear -CT chest abdomen pelvis, Pro-Andrez, CRP, CPK, sed rate, no acute findings -Consult nephrology -LR at 100 cc an hour -Renal ultrasound CONCLUSIONS No sonographic evidence of hemodynamically significant renal artery stenosis bilaterally based on velocity criteria. No hydronephrosis Compared to prior study. -CPK WNL -Nausea control -Reglan -ZOFRAN -promethazine Leukocytosis 6.77 -With complaints of fevers and chills -CT imaging no acute findings -Broad-spectrum antibiotic therapy vancomycin, Zosyn, until blood cultures are - 48 hours -Follow respiratory viral panel within normal limits -Follow blood cultures -UA within normal limits Hyperglycemia -No significant evidence of DKA or HHS, pH within normal limits, bicarb within normal limits anion gap 24.8 - Lantus to 30 units daily -High-dose sliding scale Small fiber neuropathy, fibromyalgia -Patient does not know what her morphine and bupivacaine pump is set at -Patient's company can come to the hospital and refill her bupivacaine morphine pump -Monitor closely for opiate overdose History of liver transplant -For history of liver cancer -Has had 5 ERCPs for surveillance all within normal limits -Patient has brought in all her rejection medication ? Continue Prograf ? She is off prednisone ? Continue Myfortic ? Continue atovaquone ? Continue valacyclovir, -Liver function within normal limits -ER provider has reached out to liver transplant team at [facility], recommended medical management no need for transfer at this time Attestations 2 Medical Necessity Statement*: Patient requires hospitalization for tractable nausea vomiting, acute kidney injury, history of liver transplant Diagnoses Acute renal failure, unspecified acute renal failure type N17.9 Acute renal failure type: unspecified Intractable nausea and vomiting R11.2 History of liver transplant Z94.4 Fibromyalgia M79.7 Small fiber neuropathy G62.9
--- NOTE | 2024-09-26 18:38 | PC.NURSE ---
Sent all home medications to pharmacy for verification.
[2024-09-26] MEDS: pantoprazole 40 mg SDV IVP (20:25)
[2024-09-26] MEDS: enoxaparin 40 mg/0.4 mL Syringe SUBCUT (20:25)
[2024-09-26 20:31] LABS: Glucose Point of Care 189 mg/dL (70-110)
[2024-09-26 21:48] LABS: Troponin 5 6HR 28.97 ng/L (0-10)
[2024-09-26 21:54] LABS: Troponin 5 6HR Delta -15.03 ng/L (0-12)
[2024-09-27] VITALS (11 sets, daily range): BP systolic 154–169; BP diastolic 76–94; PULSE 75–92; RESP 15–18; TEMP 36.4–37.1; O2SAT 95–99
[2024-09-27] MEDS: aspirin 81 mg EC Tablet PO (02:12)
[2024-09-27] MEDS: carvedilol 25 mg Tablet PO ×2 (02:13→14:34)
[2024-09-27] MEDS: MYCOPHENOLATE SODIUM 360 MG PO ×3 (02:14→14:33)
[2024-09-27] MEDS: [UNRECOGNIZED DRUG - OTHER] PO ×3 (02:14→14:33)
[2024-09-27] MEDS: TACROLIMUS 1 MG 2 EACH PO (02:15)
[2024-09-27 05:36] LABS: Basophils # 0.1 10^3/uL (0.0-0.1); Basophils % 1.2 %; Eosinophils # 0.3 10^3/uL (0.0-0.8); Eosinophils % 4.6 %; Hematocrit 39.7 % (36-47); Lymphocytes # 1.1 10^3/uL (0.8-4.8); Lymphocytes % 18.7 %; Mean Corpuscular HGB Conc 32.2 g/dL (30-55); Mean Corpuscular Hemoglobin 26.6 pg (27-33); Mean Corpuscular Volume 82.4 fl (85-98); Mean Platelet Volume 10.8 fL (7.4-10.4); Monocytes # 0.4 10^3/uL (0.2-0.9); Monocytes % 7.3 %; Neutrophils % 67.9 %; Nucleated Red Blood Cells % 0 %; Platelet Count 179 10^3/cmm (157-399); Red Blood Count 4.82 10^6/uL (3.85-5.65); Red Cell Distribution Width 19.2 % (12.1-15.1); White Blood Count 5.89 10^3/uL (3.29-11.43)
[2024-09-27] MEDS: lactated ringers 1,000 ML 100 ML IV (06:00)
[2024-09-27] MEDS: piperacillin-tazobactam 3.375 GM in sodium chloride 0.9% (plus) 50 ML IV (06:02)
[2024-09-27 06:04] LABS: Alanine Aminotransferase 12 U/L (0-33); Albumin Level 3.3 g/dL (3.5-5.2); Alkaline Phosphatase 64 U/L (35-105); Anion Gap 15.3 (5-19); Aspartate Amino Transferase 11 U/L (0-32); Blood Urea Nitrogen 26 mg/dL (6-20); Calcium 8.9 mg/dL (8.5-10.5); Carbon Dioxide 23 mmol/L (22-29); Chloride 102 mmol/L (98-107); Creatinine Clr Calc Pharmacy 73.3992; Globulin 2.5 g/dL (1.3-4.6); Glomerular Filtration Rate 40.8 mL/min (90-130); Glucose 158 mg/dL (65-115); Magnesium 1.8 mg/dL (1.7-2.3); Osmolality Calculated 290 mOsm/kg (285-295); Phosphorus 3.1 mg/dL (2.5-4.5); Potassium 4.3 mmol/L (3.5-5.1); Sodium 136 mmol/L (136-145); Total Bilirubin 0.4 mg/dL (0.15-1.2); Total Protein 5.8 g/dL (6.6-8.7)
[2024-09-27 06:25] LABS: Glucose Point of Care 164 mg/dL (70-110)
--- NOTE | 2024-09-27 07:41 | P.PN_ITS ---
Subjective 2 Subjective: feels better. states that she is eating. no n/v/f/c/guerra/d/sob. feels better. less weak Medications: Reviewed: Yes Medication Review Details: Current Medications Alprazolam (Alprazolam 0.5 Mg Tablet) 0.25 mg PO BID PRN PRN Reason: ANXIETY Last Admin: 09/26/24 15:32 Dose: 0.25 mg Aspirin (Aspirin 81 Mg Ec Tablet) 81 mg PO BEDTIME [facility] Last Admin: 09/27/24 02:12 Dose: 81 mg Atorvastatin Calcium (Atorvastatin 40 Mg Tablet) 20 mg PO BEDTIME TOÑITO Last Admin: 09/26/24 19:47 Dose: Not Given Carvedilol (Carvedilol 25 Mg Tablet) 25 mg PO 0200,1400 [facility] Last Admin: 09/27/24 02:13 Dose: 25 mg Enoxaparin Sodium (Enoxaparin 40 Mg/0.4 Ml Syringe) 40 mg SUBCUT Q24H [facility] Last Admin: 09/26/24 20:25 Dose: 40 mg Glucagon (Glucagon 1 Mg/Ml Kit 1 Ml) 1 mg IM ONCE PRN; Protocol PRN Reason: Adult Acute Hypoglycemia Nursing Prot. Dextrose (D5w) 500 mls @ 0 mls/hr IV ONCE PRN; Protocol PRN Reason: Adult Acute Hypoglycemia Prot Dextrose (D10w) 125 mls @ 750 mls/hr IV PRN PRN; Protocol PRN Reason: Adult Acute Hypoglycemia Nursing Protocol Dextrose (D10w) 250 mls @ 1,000 mls/hr IV PRN PRN; Protocol PRN Reason: Adult Acute Hypoglycemia Nursing Protocol Piperacillin Sod/Tazobactam (Sod 3.375 gm/ Sodium Chloride) 50 mls @ 12.5 mls/hr IV Q8H [facility] Last Admin: 09/27/24 06:02 Dose: 12.5 mls/hr Lactated Ringer's (Lactated Ringers) 1,000 mls @ 100 mls/hr IV .Q10H [facility] Last Admin: 09/27/24 06:00 Dose: 100 mls/hr Insulin Glargine (Insulin Glargine 100 Units/1 Ml) 40 unit SUBCUT DAILY [facility] Last Admin: 09/26/24 09:34 Dose: 40 unit Insulin Human Lispro (Insulin Lispro 100 Unit/1 Ml) 0 unit SUBCUT WM&BEDTIME TOÑITO; Protocol Last Admin: 09/26/24 20:40 Dose: 8 unit Morphine Sulfate (Morphine 4 Mg/Ml Sdv 1 Ml) 2 mg IVP Q4H PRN PRN Reason: SEVERE PAIN Last Admin: 09/26/24 23:16 Dose: 2 mg Naloxone HCl (Naloxone 0.4 Mg/Ml Sdv) 0.1 mg IVP Q2M PRN PRN Reason: OPIATERV Non-Formulary Medication Tacrolimus 1 Mg Capsule 2 each PO BEDTIME@0200 [facility] Last Admin: 09/27/24 02:15 Dose: 2 each Non-Formulary Medication Tacrolimus 1 Mg Capsule 3 each PO DAILY@1400 [facility] Non-Formulary Medication (Atovaquone [Mepron]) 1 mg PO DAILY@1400 [facility] Non-Formulary Medication (Valganciclovir [Valcyte]) 450 mg PO DAILY@1400 [facility] Non-Formulary Medication (Amitriptyline) 10 mg PO DAILY@1400 [facility] Non-Formulary Medication (Valganciclovir [Valcyte]) 450 mg PO DAILY@1400 [facility] Non-Formulary Medication (Mycophenolate Sodium [Myfortic]) 360 mg PO BID@0200,1400 [facility] Last Admin: 09/27/24 02:15 Dose: 360 mg Ondansetron HCl (Ondansetron 2 Mg/Ml Sdv 2 Ml) 4 mg IVP Q8H PRN PRN Reason: vomiting, or N/V if npo Last Admin: 09/26/24 23:16 Dose: 4 mg Pantoprazole Sodium (Pantoprazole 40 Mg Sdv) 40 mg IVP Q24H [facility] Last Admin: 09/26/24 20:25 Dose: 40 mg Promethazine HCl (Promethazine 25 Mg/Ml Sdv 1 Ml) 12.5 mg IM Q6H PRN PRN Reason: NAUSEA Last Admin: 09/25/24 08:37 Dose: 12.5 mg Vitals/I&O/Wt Last Vital Signs Temp 98.8 F 09/27/24 04:00 Pulse 75 09/27/24 04:00 Resp 18 09/27/24 04:00 BP 163/77 09/27/24 04:00 Pulse Ox 99 09/27/24 04:00 O2 Del Method Nasal Cannula 09/27/24 00:00 O2 Flow Rate 2 09/27/24 00:00 09/26/24 09/27/24 09/27/24 22:59 06:59 14:59 Intake Total 1683.334 / 2453.334 1250 / 3703.334 Output Total 1600 / 3000 Balance 83.334 / -848.521 5556 / 703.334 Weight last 48 hrs Weight 120.474 kg Weight 119.068 kg Physical Exam 2 Narrative: Obese lady in bed NARD - vital signs noted. HEENT normocephalic atraumatic Neck is supple no JVP no carotid bruit. Lungs are clear to auscultation. Heart is regular no rubs or gallops. Abdomen is soft, non- tender, + multiple surgical scars. Bowel sounds present. Extremities have no edema. Neuro awake alert oriented x 3. Pulses are palpable. Patient was seen and examined using audiovisual equipment with the aid of a nurse. Urinary Catheter Management: Matthews: Cath Placed During This Visit: yes Reason for Continuing Indwelling Catheter: Accurate Measurement of Urinary Output in Critically Ill Patients Urinary Catheter Date of Insertion: 09/24/24 Urinary Catheter Time of Insertion: 17:50 Data 09/27/24 05:21 09/27/24 05:21 A&P Assessment and plan (1) Acute renal failure: 44-year-old lady obesity CHF status post liver transplant 7 months ago patient is followed at [facility]. Patient was admitted with 3 days of nausea and vomiting fevers and chills patient was found to have hyponatremia and acute kidney injury. 1 acute kidney injury - working dx is prerenal azotemia -low ur chloride urine na was 44 afteer ivf -serum cr is improving - No hydronephrosis on CT scan. 2. liver yransplant -monitor tacrolimus trough- 1 hr pre am dose 3. Hyponatremia- urine electrolytes noted. Continue fluid restriction. serum na improved w/ ivf -renal dose abx 4. replace vit d meds reviewed -as renal function is improving, we will sign off. please call us with any questions seen and examined w/ RN using A/V equipment pt consents to telehealth Qualifiers: Acute renal failure type: unspecified Qualified Code(s): N17.9 - Acute kidney failure, unspecified Plan per hospitalist Attestations 2 Medical Necessity Statement*: per hospitalist Time Spent in Patient Care: 16 - 35 minutes (>than 50% of time sp ent in counselling and/or direct pt care on unit) . Coding Level of Care Code Acute Code for Chg Fwd Diagnoses Acute renal failure, unspecified acute renal failure type N17.9 Acute renal failure type: unspecified
[2024-09-27] MEDS: ondansetron 2 mg/ML SDV 2 mL 4 MG IVP ×2 (08:57→18:54)
[2024-09-27] MEDS: insulin lispro 100 unit/1 mL SUBCUT ×4 (08:58→22:17)
[2024-09-27] MEDS: insulin glargine 100 units/1 mL 40 UNIT SUBCUT (08:58)
[2024-09-27 10:58] LABS: Glucose Point of Care 180 mg/dL (70-110)
--- NOTE | 2024-09-27 14:23 | P.PN_ITS ---
Subjective 2 Subjective: Patient was seen this morning, still has episodes of nausea, discussed advancing diet, will de-escalate her off fluids, monitor her blood sugars, she does report fatigue and tiredness Vitals/I&O/Wt Last Vital Signs Temp 98.4 F 09/27/24 12:00 Pulse 83 09/27/24 12:00 Resp 16 09/27/24 12:00 BP 168/84 09/27/24 12:00 Pulse Ox 98 09/27/24 11:37 O2 Del Method Room Air 09/27/24 11:37 O2 Flow Rate 2 09/27/24 00:00 09/26/24 09/27/24 09/27/24 22:59 06:59 14:59 Intake Total 1683.334 / 2453.334 1250 / 3703.334 Output Total 1600 / 3000 1500 / 1500 Balance 83.334 / -134.243 0968 / 703.334 -1500 / -1500 Weight last 48 hrs Weight 120.474 kg Weight 119.068 kg Physical Exam 2 Const: COMMON NORMALS: no acute distress and patient oriented x3 Resp: COMMON NORMALS: normal respiratory effort, No retractions, No use of accessory muscles and clear to auscultation bilaterally AUSCULTATION: clear to auscultation bilaterally Cardio: COMMON NORMALS: regular rate, regular rhythm, S1 normal heart sound present and S2 normal heart sound present RATE: regular rate RHYTHM: r egular rhythm HEART SOUNDS: S1 normal heart sound present and S2 normal heart sound present GI: COMMON NORMALS: Normal to inspection, nondistended, normoactive bowel sounds present and non-tender Extremity: COMMON NORMALS: no pedal edema Neuro: COMMON NORMALS: patient oriented x3 Psych: COMMON NORMALS: mental status grossly normal Urinary Catheter Management: Matthews: Cath Placed During This Visit: yes Reason for Continuing Indwelling Catheter: Accurate Measurement of Urinary Output in Critically Ill Patients Urinary Catheter Date of Insertion: 09/24/24 Urinary Catheter Time of Insertion: 17:50 Data 09/27/24 05:21 09/27/24 05:21 A&P Assessment and plan (1) Acute renal failure: Qualifiers: Acute renal failure type: unspecified Qualified Code(s): N17.9 - Acute kidney failure, unspecified (2) Intractable nausea and vomiting: (3) History of liver transplant: (4) Fibromyalgia: (5) Small fiber neuropathy: Plan Intractable nausea vomiting, creatinine improved 1.4 -With acute renal failure -With hyponatremia, likely from dehydration -Etiology unclear -CT chest abdomen pelvis, Pro-Andrez, CRP, CPK, sed rate, no acute findings -Consult nephrology -deescalate off fluids -Renal ultrasound CONCLUSIONS No sonographic evidence of hemodynamically significant renal artery stenosis bilaterally based on velocity criteria. No hydronephrosis Compared to prior study. -CPK WNL -Nausea control -Reglan -ZOFRAN -promethazine Leukocytosis 6.77 -With complaints of fevers and chills -CT imaging no acute findings -Broad-spectrum antibiotic therapy vancomycin, Zosyn, until blood cultures are - 48 hours -Follow respiratory viral panel within normal limits -Follow blood cultures -UA within normal limits Hyperglycemia -No significant evidence of DKA or HHS, pH within normal limits, bicarb within normal limits anion gap 24.8 - Lantus to 30 units daily -High-dose sliding scale Small fiber neuropathy, fibromyalgia -Patient does not know what her morphine and bupivacaine pump is set at -Patient's company can come to the hospital and refill her bupivacaine morphine pump -Monitor closely for opiate overdose History of liver transplant -For history of liver cancer -Has had 5 ERCPs for surveillance all within normal limits -Patient has brought in all her rejection medication ? Continue Prograf ? She is off prednisone ? Continue Myfortic ? Continue atovaquone ? Continue valacyclovir, -Liver function within normal limits -ER provider has reached out to liver transplant team at [place], recommended medical management no need for transfer at this time Plan for today continue to advance diet, nausea control, pain control, de- escalate IV fluids Attestations 2 Medical Necessity Statement*: Patient requires hospitalization due to intractable nausea vomiting, GOMEZ Diagnoses Acute renal failure, unspecified acute renal failure type N17.9 Acute renal failure type: unspecified Intractable nausea and vomiting R11.2 History of liver transplant Z94.4 Fibromyalgia M79.7 Small fiber neuropathy G62.9
[2024-09-27] MEDS: TACROLIMUS 1 MG 3 EACH PO (14:34)
[2024-09-27] MEDS: VALGANCICLOVIR 450 MG 450 EACH PO (14:35)
[2024-09-27] MEDS: ATOVAQUONE 750 MG/5 ML 1 EACH PO (14:35)
[2024-09-27 15:35] LABS: Tacrolimus, Highly Sensitive 16.5 mcg/L
[2024-09-27 16:38] LABS: Glucose Point of Care 205 mg/dL (70-110)
[2024-09-27] MEDS: TRAMadol 50 mg Tablet PO (17:27)
[2024-09-27 20:51] LABS: Glucose Point of Care 183 mg/dL (70-110)
[2024-09-27] MEDS: enoxaparin 40 mg/0.4 mL Syringe SUBCUT (22:16)
[2024-09-27] MEDS: pantoprazole 40 mg SDV IVP (22:16)
[2024-09-27] MEDS: morphine 4 mg/mL SDV 1 mL 2 MG IVP (23:22)
[2024-09-28] VITALS (11 sets, daily range): BP systolic 129–181; BP diastolic 78–112; PULSE 67–98; RESP 17–19; TEMP 36.7–36.9; O2SAT 96–98
[2024-09-28] MEDS: TACROLIMUS 1 MG 2 EACH PO (02:25)
[2024-09-28] MEDS: sennosides-docusate Tablet 1 TAB PO ×2 (02:25→14:31)
[2024-09-28] MEDS: [UNRECOGNIZED DRUG - OTHER] PO ×2 (02:25→14:29)
[2024-09-28] MEDS: MYCOPHENOLATE SODIUM 360 MG PO ×2 (02:25→14:29)
[2024-09-28] MEDS: aspirin 81 mg EC Tablet PO ×2 (02:25→20:44)
[2024-09-28] MEDS: carvedilol 25 mg Tablet PO ×2 (02:25→14:31)
[2024-09-28 06:10] LABS: Basophils # 0.1 10^3/uL (0.0-0.1); Basophils % 1.4 %; Eosinophils # 0.3 10^3/uL (0.0-0.8); Eosinophils % 4.5 %; Hematocrit 41.7 % (36-47); Lymphocytes # 1.2 10^3/uL (0.8-4.8); Lymphocytes % 20.8 %; Mean Corpuscular HGB Conc 32.6 g/dL (30-55); Mean Corpuscular Hemoglobin 26.2 pg (27-33); Mean Corpuscular Volume 80.3 fl (85-98); Monocytes # 0.5 10^3/uL (0.2-0.9); Monocytes % 8.7 %; Neutrophils # 3.72 10^3/uL (1.8-7.7); Neutrophils % 64.4 %; Nucleated Red Blood Cells % 0 %; Platelet Count 197 10^3/cmm (157-399); Red Blood Count 5.19 10^6/uL (3.85-5.65); White Blood Count 5.77 10^3/uL (3.29-11.43)
[2024-09-28 06:24] LABS: Glucose Point of Care 165 mg/dL (70-110)
[2024-09-28 06:36] LABS: Alanine Aminotransferase 16 U/L (0-33); Albumin Level 3.7 g/dL (3.5-5.2); Alkaline Phosphatase 66 U/L (35-105); Anion Gap 15.3 (5-19); Aspartate Amino Transferase 16 U/L (0-32); Blood Urea Nitrogen 18 mg/dL (6-20); Calcium 9.2 mg/dL (8.5-10.5); Carbon Dioxide 27 mmol/L (22-29); Chloride 99 mmol/L (98-107); Creatinine Clr Calc Pharmacy 79.0453; Globulin 2.5 g/dL (1.3-4.6); Glomerular Filtration Rate 44.5 mL/min (90-130); Glucose 167 mg/dL (65-115); Magnesium 1.5 mg/dL (1.7-2.3); Osmolality Calculated 290 mOsm/kg (285-295); Phosphorus 2.8 mg/dL (2.5-4.5); Potassium 4.3 mmol/L (3.5-5.1); Sodium 137 mmol/L (136-145); Total Bilirubin 0.4 mg/dL (0.15-1.2); Total Protein 6.2 g/dL (6.6-8.7)
[2024-09-28] MEDS: ondansetron 2 mg/ML SDV 2 mL 4 MG IVP ×2 (08:02→17:43)
[2024-09-28] MEDS: insulin lispro 100 unit/1 mL SUBCUT ×4 (08:03→22:25)
[2024-09-28] MEDS: insulin glargine 100 units/1 mL 40 UNIT SUBCUT (08:03)
[2024-09-28] MEDS: magnesium lactate 84 mg Tablet PO (09:46)
[2024-09-28 11:06] LABS: Glucose Point of Care 168 mg/dL (70-110)
[2024-09-28] MEDS: ATOVAQUONE 750 MG/5 ML 1 EACH PO (14:28)
[2024-09-28] MEDS: VALGANCICLOVIR 450 MG 450 EACH PO (14:30)
[2024-09-28] MEDS: TACROLIMUS 1 MG 3 EACH PO (14:30)
--- NOTE | 2024-09-28 14:55 | P.PN_ITS ---
Subjective 2 Subjective: The patient was seen this morning, no nausea, no vomiting, does report fatigue, malaise Vitals/I&O/Wt Last Vital Signs Temp 98.2 F 09/28/24 10:53 Pulse 91 09/28/24 10:53 Resp 17 09/28/24 10:53 BP 129/86 09/28/24 10:53 Pulse Ox 96 09/28/24 10:53 O2 Del Method Room Air 09/28/24 10:53 O2 Flow Rate 2 09/28/24 07:29 09/27/24 09/28/24 09/28/24 22:59 06:59 14:59 Intake Total 220 / 220 1400 / 1620 720 / 720 Output Total 1100 / 2600 Balance -880 / -2380 1400 / -980 720 / 720 Weight last 48 hrs Weight 120.474 kg Weight 120.474 kg Physical Exam 2 Const: COMMON NORMALS: no acute distress and patient oriented x3 Resp: COMMON NORMALS: normal respiratory effort, No retractions, No use of accessory muscles and clear to auscultation bilaterally AUSCULTATION: clear to auscultation bilaterally Cardio: COMMON NORMALS: regular rate, regular rhythm, S1 normal heart sound present and S2 normal heart sound present RATE: regular rate RHYTHM: r egular rhythm HEART SOUNDS: S1 normal heart sound present and S2 normal heart sound present GI: COMMON NORMALS: Normal to inspection, nondistended, normoactive bowel sounds present and non-tender Extremity: COMMON NORMALS: no pedal edema Neuro: COMMON NORMALS: patient oriented x3 Psych: COMMON NORMALS: mental status grossly normal Urinary Catheter Management: Matthews: Cath Placed During This Visit: yes, but has since been removed by the nurse Reason for Continuing Indwelling Catheter: Accurate Measurement of Urinary Output in Critically Ill Patients Urinary Catheter Date of Insertion: 09/24/24 Urinary Catheter Time of Insertion: 17:50 Date Urinary Catheter Removed: 09/27/24 Time Urinary Catheter Discontinued: 07:30 Data 09/28/24 05:50 09/28/24 05:50 A&P Assessment and plan (1) Acute renal failure: Qualifiers: Acute renal failure type: unspecified Qualified Code(s): N17.9 - Acute kidney failure, unspecified (2) Intractable nausea and vomiting: (3) History of liver transplant: (4) Fibromyalgia: (5) Small fiber neuropathy: Plan Intractable nausea vomiting, creatinine improved 1.3 -With acute renal failure -With hyponatremia, likely from dehydration -Etiology unclear -CT chest abdomen pelvis, Pro-Andrez, CRP, CPK, sed rate, no acute findings -Consult nephrology -deescalate off fluids -Renal ultrasound CONCLUSIONS No sonographic evidence of hemodynamically significant renal artery stenosis bilaterally based on velocity criteria. No hydronephrosis Compared to prior study. -CPK WNL -Nausea control -Reglan -ZOFRAN -promethazine Leukocytosis 6.77 -With complaints of fevers and chills -CT imaging no acute findings -Broad-spectrum antibiotic therapy vancomycin, Zosyn, until blood cultures are - 48 hours -Follow respiratory viral panel within normal limits -Follow blood cultures -UA within normal limits Hyperglycemia -No significant evidence of DKA or HHS, pH within normal limits, bicarb within normal limits anion gap 24.8 - Lantus to 30 units daily -High-dose sliding scale Small fiber neuropathy, fibromyalgia -Patient does not know what her morphine and bupivacaine pump is set at -Patient's company can come to the hospital and refill her bupivacaine morphine pump -Monitor closely for opiate overdose History of liver transplant -For history of liver cancer -Has had 5 ERCPs for surveillance all within normal limits -Patient has brought in all her rejection medication ? Continue Prograf ? She is off prednisone ? Continue Myfortic ? Continue atovaquone ? Continue valacyclovir, -Liver function within normal limits -ER provider has reached out to liver transplant team at [place], recommended medical management no need for transfer at this time Plan for today continue to advance diet, nausea control, pain control, Attestations 2 Medical Necessity Statement*: Patient requires hospitalization due to intractable nausea vomiting fatigue and malaise Diagnoses Acute renal failure, unspecified acute renal failure type N17.9 Acute renal failure type: unspecified Intractable nausea and vomiting R11.2 History of liver transplant Z94.4 Fibromyalgia M79.7 Small fiber neuropathy G62.9
[2024-09-28 17:08] LABS: Glucose Point of Care 189 mg/dL (70-110)
[2024-09-28] MEDS: scopolamine 1 mg PATCH 1 PATCH TRANSDERMA (17:43)
[2024-09-28] MEDS: pantoprazole 40 mg SDV IVP (20:43)
[2024-09-28] MEDS: enoxaparin 40 mg/0.4 mL Syringe SUBCUT (20:43)
[2024-09-28] MEDS: TRAMadol 50 mg Tablet PO (20:55)
[2024-09-28 21:04] LABS: Glucose Point of Care 274 mg/dL (70-110)
[2024-09-29] VITALS: BP 161/89; PULSE 80; RESP 18; TEMP 36.9; O2SAT 97
[2024-09-29] MEDS: sennosides-docusate Tablet 1 TAB PO ×2 (02:08→13:13)
[2024-09-29] MEDS: [UNRECOGNIZED DRUG - OTHER] PO ×2 (02:09→13:16)
[2024-09-29] MEDS: carvedilol 25 mg Tablet PO ×2 (02:09→13:13)
[2024-09-29] MEDS: TACROLIMUS 1 MG 2 EACH PO (02:09)
[2024-09-29] MEDS: MYCOPHENOLATE SODIUM 360 MG PO ×2 (02:09→13:16)
[2024-09-29] MEDS: ondansetron 2 mg/ML SDV 2 mL 4 MG IVP (02:14)
[2024-09-29 04:00] VITALS: BP 130/67; PULSE 77; RESP 16; TEMP 36.8; O2SAT 95
[2024-09-29 05:29] LABS: Basophils # 0.1 10^3/uL (0.0-0.1); Basophils % 1.4 %; Eosinophils # 0.3 10^3/uL (0.0-0.8); Eosinophils % 4.8 %; Hematocrit 41.5 % (36-47); Lymphocytes # 1.1 10^3/uL (0.8-4.8); Lymphocytes % 18.1 %; Mean Corpuscular Hemoglobin 26.3 pg (27-33); Mean Corpuscular Volume 82.2 fl (85-98); Mean Platelet Volume 11.4 fL (7.4-10.4); Monocytes # 0.4 10^3/uL (0.2-0.9); Monocytes % 6.4 %; Neutrophils # 3.98 10^3/uL (1.8-7.7); Neutrophils % 68.8 %; Nucleated Red Blood Cells % 0 %; Platelet Count 181 10^3/cmm (157-399); Red Blood Count 5.05 10^6/uL (3.85-5.65); Red Cell Distribution Width 19.1 % (12.1-15.1); White Blood Count 5.79 10^3/uL (3.29-11.43)
[2024-09-29 05:51] LABS: Alanine Aminotransferase 21 U/L (0-33); Albumin Level 3.8 g/dL (3.5-5.2); Alkaline Phosphatase 63 U/L (35-105); Anion Gap 14.6 (5-19); Aspartate Amino Transferase 19 U/L (0-32); Blood Urea Nitrogen 18 mg/dL (6-20); Calcium 9.4 mg/dL (8.5-10.5); Carbon Dioxide 26 mmol/L (22-29); Chloride 97 mmol/L (98-107); Creatinine Clr Calc Pharmacy 85.6324; Globulin 2.9 g/dL (1.3-4.6); Glomerular Filtration Rate 48.8 mL/min (90-130); Glucose 180 mg/dL (65-115); Osmolality Calculated 282 mOsm/kg (285-295); Potassium 4.6 mmol/L (3.5-5.1); Sodium 133 mmol/L (136-145); Total Bilirubin 0.4 mg/dL (0.15-1.2); Total Protein 6.7 g/dL (6.6-8.7)
[2024-09-29 06:41] LABS: Glucose Point of Care 196 mg/dL (70-110)
[2024-09-29 08:00] VITALS: BP 167/96; PULSE 78; RESP 14; TEMP 36.7; O2SAT 96
[2024-09-29] MEDS: promethazine 25 mg/mL SDV 1 mL 12.5 MG IM (08:37)
[2024-09-29] MEDS: magnesium lactate 84 mg Tablet PO (08:37)
[2024-09-29] MEDS: insulin lispro 100 unit/1 mL SUBCUT ×2 (08:38→13:12)
[2024-09-29] MEDS: TRAMadol 50 mg Tablet PO (10:41)
[2024-09-29] MEDS: insulin glargine 100 units/1 mL 40 UNIT SUBCUT (10:41)
[2024-09-29 12:00] VITALS: BP 162/107; PULSE 82; RESP 15; TEMP 36.7; O2SAT 96
[2024-09-29 12:05] LABS: Glucose Point of Care 202 mg/dL (70-110)
--- NOTE | 2024-09-29 12:14 | PM.DCS ---
Discharge Providers Date of Admission: 09/24/24 18:35 Date of Discharge: September 29, 2024 Attending Provider at Admission: Cheng Manley MD Attending Provider at Discharge: Cheng Manley MD Primary Care Provider: En Dowell DO Diagnoses at Discharge Discharge Diagnosis (1) Acute renal failure: Status: Acute Qualifiers: Acute renal failure type: unspecified Qualified Code(s): N17.9 - Acute kidney failure, unspecified (2) Intractable nausea and vomiting: Status: Acute (3) History of liver transplant: Status: Acute (4) Fibromyalgia: Status: Chronic (5) Small fiber neuropathy: Status: Chronic Reason for Visit Reason for Visit: f,v, extreme week Hospital Course Hospital Course Keily Foley is a 44 year old female with a past medical history of severe COVID-19 pneumonia, CHF, history of liver cancer status post liver transplant, 7 months ago, she has had 5 ERCPs since then which are routine for surveillance, has had no issues in the last ONE September 13, 2024. She she is on multiple rejection medications, she has never had any issues with rejection, she never had any issues with infection, she is on atovaquone and valacyclovir. She never had any complications after her liver transplant or any significant issues. She follows up with the liver transplant team at [facility]. Patient tells me that for the last 3 days she has had intractable nausea vomiting, yesterday she had subjective fevers and chills, no abdominal pain, no diarrhea, no new rashes, no sick contacts, she did go to [place] for her ERCP, no calf pain, no calf swelling, no chest pain, no shortness of breath, no lightheadedness, no dizziness, denies a history of liver disease, no history of UTIs, she has a history of small fiber neuropathy for which she is on a morphine pump and a bupivacaine pump, history of fibromyalgia no family ember's are sick, no sore throat, she does have some cervical lymphadenopathy and tenderness, no falls, no injuries, she is taking all her medications prescribed denies any drug use Patient was admitted to [facility] due to intractable nausea, vomiting, acute renal failure acute hyponatremia received IV fluids, nephrology consulted, renal ultrasound no hydronephrosis, overall clinically improved. Creatinine on discharge is 1.2, advised to hydrate well, recheck kidney function on Tuesday through primary care Patient had infectious evaluation, CT chest abdomen pelvis no acute findings, blood cultures so far unremarkable, viral panel is within normal limits, UA within normal limits nonetheless she was managed with broad-spectrum antibiotic therapy initially. She remained afebrile, blood cultures have been negative so far antibiotic therapy has been discontinued Potentially her nausea vomiting could be related to elevated Prograf levels at 16.5-17? Spoke to [facility] transplant center, coordinator, recommended holding Prograf until Tuesday, with recheck Prograf levels on Tuesday and [facility] transplant team will reach out to patient. Patient was advised to hydrate well, was sent in a refill for scopolamine patch for nausea and vomiting, Zofran as needed, follow-up with primary care Physical Exam Const: COMMON NORMALS: no acute distress and patient oriented x3 Resp: COMMON NORMALS: normal respiratory effort, No retractions, No use of accessory muscles and clear to auscultation bilaterally AUSCULTATION: clear to auscultation bilaterally Cardio: COMMON NORMALS: regular rate, regular rhythm, S1 normal heart sound present and S2 normal heart sound present RATE: regular rate RHYTHM: regular rhythm HEART SOUNDS: S1 normal heart sound present and S2 normal heart sound present GI: COMMON NORMALS: Normal to inspection, nondistended, normoactive bowel sounds present and non-tender Extremity: COMMON NORMALS: no pedal edema Neuro: COMMON NORMALS: patient oriented x3 Psych: COMMON NORMALS: mental status grossly normal Urinary Catheter Management: Matthews: Cath Placed During This Visit: yes, but has since been removed by the nurse Reason for Continuing Indwelling Catheter: Accurate Measurement of Urinary Output in Critically Ill Patients Urinary Catheter Date of Insertion: 09/24/24 Urinary Catheter Time of Insertion: 17:50 Date Urinary Catheter Removed: 09/27/24 Time Urinary Catheter Discontinued: 07:30 Discharge Data Studies Completed and Pending Completed Studies During Hospitalization Category Date Time Status CT chest abdomen pelvis [[place] [id number] Cat Scan 09/24/24 17:04 Completed ] Stat US renal doppler [CV renal doppler 82590] Routine Ultrasound 09/25/24 08:43 Completed Pending at discharge Category Date Time Status Blood Culture Stat Lab 09/24/24 17:22 Results Complete Blood Count w/Auto AM LABS Lab 09/30/24 04:00 Ordered Comprehensive Metabolic Panel AM LABS Lab 09/30/24 04:00 Ordered Comprehensive Metabolic Panel AM LABS Lab 10/01/24 04:00 Ordered Radiology Impressions Chest/Abdomen/Pelvis CT 09/24/24 17:04 IMPRESSION: 1. No acute findngs in the chest. IMPRESSION: 1. Findings of prior liver transplantation. Please correlate with surgical history. 2. No acute intra-abdominal finding. 3. There is no evidence of lymphadenopathy. Laboratory Results WBC 5.79 10^3/uL (3.29-11.43) 09/29/24 04:29 RBC 5.05 10^6/uL (3.85-5.65) 09/29/24 04:29 Hgb 13.30 g/dL (11.27-16.99) 09/29/24 04:29 Hct 41.5 % (36-47) 09/29/24 04:29 MCV 82.2 fl (85-98) L 09/29/24 04:29 MCH 26.3 pg (27-33) L 09/29/24 04:29 MCHC 32.0 g/dL (30-55) 09/29/24 04:29 RDW 19.1 % (12.1-15.1) H 09/29/24 04:29 Plt Count 181 10^3/cmm (157-399) 09/29/24 04:29 MPV 11.4 fL (7.4-10.4) H 09/29/24 04:29 Neut % (Auto) 68.8 % 09/29/24 04:29 Lymph % (Auto) 18.1 % 09/29/24 04:29 [place] % (Auto) 6.4 % 09/29/24 04:29 Eos % (Auto) 4.8 % 09/29/24 04:29 Baso % (Auto) 1.4 % 09/29/24 04:29 Neut # (Auto) 3.98 10^3/uL (1.8-7.7) 09/29/24 04:29 Lymph # (Auto) 1.1 10^3/uL (0.8-4.8) 09/29/24 04:29 [place] # (Auto) 0.4 10^3/uL (0.2-0.9) 09/29/24 04:29 Eos # (Auto) 0.3 10^3/uL (0.0-0.8) 09/29/24 04:29 Baso # (Auto) 0.1 10^3/uL (0.0-0.1) 09/29/24 04:29 Nucleated RBC % (auto) 0 % 09/29/24 04: Nucleated RBCs # 0.0 /100WBC 09/29/24 04:29 ESR 3 mm/hr (0-15) 09/24/24 15:13 PT 13.20 SECONDS (12.1-14.9) 09/24/24 15:13 INR 0.93 (0.8-1.2) 09/24/24 15:13 Specimen Type Arterial 09/24/24 16:06 Sample Site Radial, left 09/24/24 16:06 ABG pH 7.43 (7.35-7.45) 09/24/24 16:06 ABG pCO2 33.7 mmHg (35-45) L 09/24/24 16:06 ABG pO2 82.9 mmHg (80.0-100.0) 09/24/24 16:06 ABG PO2/FiO2 Ratio 394 09/24/24 16:06 ABG HCO3 22.5 mmol/L (22-26) 09/24/24 16:06 ABG Base Excess -1.0 mmol/L (-2.0-2.0) 09/24/24 16:06 Alivn Test Pos 09/24/24 16:06 Hematocrit 46.2 % (37-47) 09/24/24 16:06 O2 Delivery Device Room air 09/24/24 16:06 FiO2 21.0 % 09/24/24 16:06 Head Of History ID [place] 09/24/24 16:06 Sodium 133 mmol/L (136-145) L 09/29/24 04:29 Potassium 4.6 mmol/L (3.5-5.1) 09/29/24 04:29 Chloride 97 mmol/L (98-107) L 09/29/24 04:29 Carbon Dioxide 26 mmol/L (22-29) 09/29/24 04:29 Anion Gap 14.6 (5-19) 09/29/24 04:29 BUN 18 mg/dL (6-20) 09/29/24 04:29 Creatinine 1.2 mg/dL (0.5-0.9) H 09/29/24 04:29 GFR Calculation 48.8 mL/min (90-130) L 09/29/24 04:29 Glucose 180 mg/dL (65-115) H 09/29/24 04:29 POC Glucose 202 mg/dL (70-110) H 09/29/24 11:17 Estimat Average Glucose 212 09/24/24 15:13 Hemoglobin A1c 9.0 % (4.0-6.0) H 09/24/24 15:13 Calculated Osmolality 282 mOsm/kg (285-295) L 09/29/24 04:29 Lactic Acid 1.7 mmol/L (0.5-2.2) 09/24/24 17:22 Uric Acid 8.5 mg/dL (2.4-5.7) H 09/25/24 06:50 Calcium 9.4 mg/dL (8.5-10.5) 09/29/24 04:29 Phosphorus 2.8 mg/dL (2.5-4.5) 09/28/24 05:50 Magnesium 1.5 mg/dL (1.7-2.3) L 09/28/24 05:50 Total Bilirubin 0.4 mg/dL (0.15-1.2) 09/29/24 04:29 GGT 226 U/L (5-36) H 09/24/24 15:13 AST 19 U/L (0-32) 09/29/24 04:29 ALT 21 U/L (0-33) 09/29/24 04:29 Alkaline Phosphatase 63 U/L (35-105) 09/29/24 04:29 Ammonia 21 umol/L (11-51) 09/24/24 17:55 Creatine Kinase 52 U/L (26-192) 09/24/24 15:13 Troponin T Baseline 44 ng/L (0-10) H 09/26/24 15:28 Troponin T 120 Minute 43.40 ng/L (0-10) H 09/26/24 17:50 Delta Troponin T -0.60 ABS# (0-10) L 09/26/24 17:50 Troponin T Hi Sens 6Hr 28.97 ng/L (0-10) H 09/26/24 21:22 Troponin T Hi Sens 6Hr Delta -15.03 ng/L (0-12) L 09/26/24 21:22 C-Reactive Protein 3.0 mg/L (0.0-4.9) 09/24/24 15:13 NT-Pro-B Natriuret Pep 1225 pg/mL (0-125) H 09/24/24 15:13 Total Protein 6.7 g/dL (6.6-8.7) 09/29/24 04:29 Albumin 3.8 g/dL (3.5-5.2) 09/29/24 04:29 Globulin 2.9 g/dL (1.3-4.6) 09/29/24 04:29 Triglycerides 243 mg/dL (0-150) H 09/24/24 15:13 Cholesterol 275 mg/dL (0-200) H 09/24/24 15:13 LDL Cholesterol, Calc 170 mg/dL (50-129) H 09/24/24 15:13 HDL Cholesterol 56 mg/dL (60-100) L 09/24/24 15:13 LDL/HDL Ratio 3.04 RATIO (0.00-3.22) 09/24/24 15:13 Cholesterol/HDL Ratio 4.91 mg/dL (0.0-4.40) H 09/24/24 15:13 Lipase 27 U/L (13-60) 09/24/24 15:13 25-OH Vitamin D Total 7 ng/mL (30-100) L 09/26/24 06:34 Procalcitonin 0.12 ng/mL (0-0.5) 09/24/24 15:13 TSH 0.68 uIU/mL (0.27-4.20) 09/24/24 15:13 PTH Intact 79.4 pg/mL (15-65) H 09/26/24 06:34 Calcium (PTH Intact) 9.3 mg/dL (8.5-10.5) 09/26/24 06:34 Urine Color Dark yellow (Yellow) A 09/24/24 17:45 Urine Appearance Cloudy (CLEAR) A 09/24/24 17:45 Urine pH 5.0 (5-7) 09/24/24 17:45 Ur Specific [place] 1.028 (1.005-1.030) 09/24/24 17:45 Urine Protein Trace (Negative) A 09/24/24 17:45 Urine Glucose (UA) 3+ (Normal) H 09/24/24 17:45 Urine Ketones Trace (Negative) 09/24/24 17:45 Urine Blood Negative (Negative) 09/24/24 17:45 Urine Nitrate Negative (Negative) 09/24/24 17:45 Urine Bilirubin Negative (Negative) 09/24/24 17:45 Urine Urobilinogen 1.0 mg/dL (Negative) 09/24/24 17:45 Ur Leukocyte Esterase Negative (Negative) 09/24/24 17:45 Urine RBC 0-2 /hpf (0-2) 09/24/24 17:45 Urine WBC 0-5 /hpf (0-5) 09/24/24 17:45 Ur Squamous Epith Cells 0-5 /hpf (0-5) 09/24/24 17:45 Amorphous Sediment Not Reportable 09/24/24 17:45 Urine Bacteria 2+ /hpf (NONE) H 09/24/24 17:45 Hyaline Casts 35.14 /lpf 09/24/24 17:45 Ur Random Sodium 44 mmol/L 09/25/24 17:30 Ur Random Potassium 15 mmol/L 09/25/24 17:30 Ur Random Chloride < 10 mmol/L 09/25/24 17:30 Urine Creatinine 109 mg/dL (28-217) 09/25/24 17:30 Vancomycin Trough 28.5 ug/mL (10-15) H* 09/25/24 20:27 Tacrolimus (LC/MS/MS) 16.5 mcg/L 09/26/24 06:34 Serum Ketones Negative (Negative) 09/24/24 15:13 Adenovirus (PCR) Not detected (NOT DETECT) 09/24/24 17:52 C. pneumoniae DNA (PCR) Not detected (NOT DETECT) 09/24/24 17:52 Coronavirus (PCR) Negative (Negative) 09/24/24 15:54 Coronavirus 229E (PCR) Not detected (NOT DETECT) 09/24/24 17:52 Human Metapneumovir PCR Not detected (NOT DETECT) 09/24/24 17:52 Influenza A (H1) PCR Not detected (NOT DETECT) 09/24/24 17:52 Influenza A (PCR) Negative (Negative) 09/24/24 15:54 Influ A (H1/09) PCR Not detected (NOT DETECT) 09/24/24 17:52 Influenza A (H3) PCR Not detected (NOT DETECT) 09/24/24 17:52 Influenza Type A (PCR) Not detected (NOT DETECT) 09/24/24 17:52 Influenza Type B (PCR) Not detected (NOT DETECT) 09/24/24 17:52 M. pneumoniae (PCR) Not detected (NOT DETECT) 09/24/24 17:52 Parainfluenza 1 (PCR) Not detected (NOT DETECT) 09/24/24 17:52 Parainfluenza 2 (PCR) Not detected (NOT DETECT) 09/24/24 17:52 Parainfluenza 3 (PCR) Not detected (NOT DETECT) 09/24/24 17:52 Parainfluenza 4 (PCR) Not detected (NOT DETECT) 09/24/24 17:52 RSV (PCR) Negative (Negative) 09/24/24 15:54 RSV Type A (PCR) Not detected (NOT DETECT) 09/24/24 17:52 RSV Type B (PCR) Not detected (NOT DETECT) 09/24/24 17:52 Entero/Rhino (PCR) Not detected (NOT DETECT) 09/24/24 17:52 SARS-CoV-2 (PCR) Not detected (NOT DETECT) 09/24/24 17:52 Vitals Last Vital Signs Temp 98.0 F 09/29/24 12:00 Pulse 82 09/29/24 12:00 Resp 15 09/29/24 12:00 BP 162/107 09/29/24 12:00 Pulse Ox 96 09/29/24 12:00 O2 Del Method Room Air 09/29/24 12:00 O2 Flow Rate 2 09/28/24 07:29 Discharge Plan Discharge Patient Disposition: Home Condition: Stable Prescriptions: New scopolamine base [Transderm-Scop] 1 mg over 3 days Patch 3 Day 1 patch transdermal Q3D 14 Days Qty: 4 0RF Continued aspirin 81 mg tablet,delayed release (DR/EC) 81 mg PO BEDTIME atorvastatin 20 mg tablet 20 mg PO BEDTIME cetirizine 10 mg tablet 10 mg PO DAILY acetaminophen [Tylenol Extra Strength] 500 mg Tablet 1,000 mg PO PRN polyethylene glycol 3350 17 gram/dose powder 17 g PO DAILY PRN (Reason: Constipation) omeprazole 20 mg capsule,delayed release(DR/EC) 40 mg PO BEDTIME Bupivacaine 10.66mg/Ml See Rx Instructions .ROUTE .COMPLEX Rx Instructions: 2.1054 MG OVER A 24 HOUR PERIOD FROM PAIN PUMP ferrous gluconate 324 mg (37.5 mg iron) Tablet 324 mg PO EVERY OTHER DAY Qty: 15 0RF valganciclovir [Valcyte] 450 mg Tablet 450 mg PO DAILY carvedilol 25 mg Tablet 25 mg PO BID Rx Instructions: must administer with a meal/food atovaquone [Mepron] 750 mg/5 mL Suspension 360 mg PO DAILY Rx Instructions: must administer with food, preferably a high-fat meal mycophenolate sodium [Myfortic] 360 mg Tablet,Delayed Release (Dr/Ec) 360 mg PO BID fluticasone propion-salmeterol [Advair Diskus] 250-50 mcg/dose blister with device 1 ea INHALATION BID sennosides-docusate sodium [Senna Laxative-Stool Softener] 8.6-50 mg Tablet 1 tab-cap PO TID PRN (Reason: constipation ) amitriptyline 10 mg Tablet 10 mg PO DAILY albuterol sulfate [Ventolin HFA] 90 mcg/actuation HFA aerosol inhaler 1 puff INHALATION Q6H PRN (Reason: Shortness Of Breath Or Wheezing) tiotropium bromide [Spiriva with HandiHaler] 18 mcg capsule, w/inhalation device 1 cap INHALATION QPM morphine 8 mg/mL Syringe See Rx Instructions .ROUTE .COMPLEX PRN (Reason: Pain) Rx Instructions: 1.58 MG OVER A 24 HOUR PERIOD FROM PAIN PUMP oxycodone 10 mg Tablet, Oral Only 10 mg PO Q4H PRN (Reason: Pain) ondansetron HCl 8 mg tablet 8 mg PO Q8H PRN (Reason: Nausea And Vomiting) 7 Days Qty: 21 0RF Changed insulin lispro 100 unit/mL Insulin Pen See Rx Instructions .ROUTE .COMPLEX Qty: 15 0RF Rx Instructions: Inject subcut, 3 times daily, after meals, based on insulin sliding scale provided insulin glargine [Lantus Solostar U-100 Insulin] 100 unit/mL (3 mL) insulin pen 40 unit SUBCUT DAILY 30 Days Qty: 15 0RF Held furosemide 20 mg tablet 20 mg PO DAILY PRN (Reason: Edema) Hold Instructions: Resume on 10/08/24. tacrolimus [Prograf] 1 mg Capsule 3 mg PO Q12H Hold Instructions: Resume on 10/01/24. hold until tuesday, recheck tacrolimus level, lonny will call you No Action (DME) blood-glucose meter [Blood Glucose Monitoring] Kit See Rx Instructions .ROUTE .MEDSUPPLY Qty: 1 0RF Rx Instructions: As directed (DME) Blood Glucose Test Strip See Rx Instructions .ROUTE .MEDSUPPLY Qty: 100 1RF Rx Instructions: As directed (DME) pen needle, diabetic [TechLITE Pen Needle] 31 gauge x 3/16 needle See Rx Instructions .ROUTE .COMPLEX Qty: 100 11RF Dose Instruction: USE WITH INSULIN 5 TIMES DAILY Rx Instructions: USE WITH INSULIN 5 TIMES DAILY Discharge Orders: Discharge Order (Routine); Ordered 09/29/24 Ordered By: Cheng Manley Referrals: En Dowell DO [Primary Care Provider] - Discharge Diet: Advance as tolerated Discharge Activity: Resume usual activity Patient Instructions: Opioid Safety Activity Restrictions/Additional Instructions: - Please hydrate well drink plenty of electrolyte balanced fluids -Your creatinine on discharge is 1.2, have primary care recheck your kidney function next week -Your tacrolimus level is 17, [facility] transplant team wants you to hold tacrolimus until Tuesday, recheck Tac level, [facility] team will reach out to you -If any fevers, chills, nausea or vomiting please come back to the emergency room -Please monitor your blood sugars closely -Monitor your blood sugars 3 times daily as after meals -Please record your blood sugars, and a blood sugar log -For your NovoLog -Please inject blood sugar after meals based on sliding scale provided -Do not inject insulin if you do not eat as hypoglycemia kills -This is a NovoLog sliding scale -Insulin sliding ?fingerstick? Insulin ?141-180?0 units/sq 181-220?2 units/sq ?221-260?4 units/sq ?261-300 6 units/sq ?301-350?8 units/sq ?351-400 10 units/sq ?401-450?12 units/sq >450? 14units/sq -If your blood sugar is greater than 500 go to the emergency room -If your blood sugar is less than 60 or at anytime you feel lightheaded or dizzy or diaphoretic or have chest palpitations check your blood sugar, and eat a hard candy or drink orange juice and go immediately to the emergency room -Remember hypoglycemia kills, so if his blood sugar is less than 60 we have to increase it by taking in a sugary meal such as a hard candy or orange juice and go to the emergency room -If you have any questions please call us where here to help - Discharge Attestations Time Spent in Discharge Care*: greater than 30 min Status at Discharge: Cognitive status at discharge: cognitively intact, Behavioral status at discharge: cooperative, Quality Metrics Clinical Quality Measures [ No reported AMI, CVA or VTE this stay] Coding Level of Care Code 30234 Total time (in minutes) for Discharge: 45 Diagnoses Acute renal failure, unspecified acute renal failure type N17.9 Acute renal failure type: unspecified Intractable nausea and vomiting R11.2 History of liver transplant Z94.4 Fibromyalgia M79.7 Small fiber neuropathy G62.9
[2024-09-29] MEDS: ATOVAQUONE 750 MG/5 ML 1 EACH PO (13:13)
[2024-09-29] MEDS: VALGANCICLOVIR 450 MG 450 EACH PO (13:14)
[2024-09-29] MEDS: TACROLIMUS 1 MG 3 EACH PO (13:15)
--- NOTE | 2024-09-29 14:42 | PC.NURSE ---
Discharge paperwork and lab work was discussed in thorough with patient and spouse. Patient stated she was also going to reach out to her liver transplant team. Patient was very understanding about [facility] reaching out to her about her Tacrolimus lab work and not to take this medication. All questions were answered. IV was removed. Patient and spouse packed up all belongings. Patient exited facility via wheelchair, escorted by MARIELLE Boles, with all belongings at 1420.
[2024-09-29 14:46] VITALS: BP 162/107; PULSE 82; RESP 15; TEMP 36.7; O2SAT 96
== END 2024-09-29 14:20 | disposition home or self-care (01) | DRG 683 ==
LOC: ER 17:01 → ER IP 18:35 → MEDSURG 18:37
PROVIDERS: Internal Medicine Nephrology; Admitting Provider Family Medicine; Emergency Provider Emergency Medicine; PCP Family Medicine; Visit Provider Family Medicine
DX: N17.9 Acute kidney failure, unspecified (principal); D84.821 Immunodeficiency due to drugs; Z94.4 Liver transplant status; E87.1 Hypo-osmolality and hyponatremia; M79.7 Fibromyalgia; E11.40 Type 2 diabetes mellitus with diabetic neuropathy, unspecified; E11.65 Type 2 diabetes mellitus with hyperglycemia; Z86.16 Personal history of COVID-19; Z87.01 Personal history of pneumonia (recurrent); I11.0 Hypertensive heart disease with heart failure; I50.9 Heart failure, unspecified; Z85.05 Personal history of malignant neoplasm of liver; Z79.621 Long term (current) use of calcineurin inhibitor; Z79.891 Long term (current) use of opiate analgesic; R59.0 Localized enlarged lymph nodes; Z79.82 Long term (current) use of aspirin; Z79.4 Long term (current) use of insulin; J45.909 Unspecified asthma, uncomplicated; G89.4 Chronic pain syndrome; E78.5 Hyperlipidemia, unspecified; E66.9 Obesity, unspecified; Z68.38 Body mass index [BMI] 38.0-38.9, adult; E86.0 Dehydration
CPT/HCPCS: 36415; 36416; 36600; 51702; 71250; 74176; 80048; 80053; 80061; 80197; 80202; 81001; 82009; 82140; 82306; 82310; 82436; 82550; 82570; 82803; 82962; 82977; 83036; 83605; 83690; 83735; 83880; 83970; 84100; 84133; 84145; 84300; 84443; 84484; 84550; 85025; 85610; 85651; 86140; 87040; 87486; 87581; 87633; 87637; 93005; 93975; 96365; 96367; 96372; 96375; 99285; J1650; J1815; J2270; J2405; J2470; J2543; J2550; J2765; J3370; J7030; J7120; Q3014

== ENCOUNTER 2024-10-25 22:23 | Emergency (ER) | payer MEDICAID, SELFPAY ==
[2024-10-25 22:32] VITALS: BP 198/98; PULSE 79; TEMP 36.6; O2SAT 97; BMI 37.3
[2024-10-25 22:55] LABS: Bilirubin Urine Negative (Negative); Blood Urine Negative (Negative); Glucose Urine UA 1+ (Normal); Ketones Urine Trace (Negative); Leukocyte Esterase Urine 3+ (Negative); Nitrate Urine Negative (Negative); Protein Urine 1+ (Negative); Specific Gravity, Urine 1.016 (1.005-1.030); Urine Appearance Cloudy (CLEAR); Urine Color Yellow (Yellow); Urobilinogen Urine 0.2 mg/dL (Negative); pH Urine 8.5 (5-7)
[2024-10-25 23:04] LABS: Add Urine Culture? Yes; Bacteria Urine 4+ /hpf; Squamous Epithelial Cell Urine 0-4 /hpf (0-5); WBC Urine 21-50 /hpf (0-5)
--- NOTE | 2024-10-25 23:21 | W.ED.NAVMDI ---
HPI - Nausea/Vomiting/Diarrhea General: Chief complaint: Nausea/Vomiting/Diarrhea Stated complaint: N/V Headache, Liver Transplant 9 Months Ago Time Seen by Provider: 10/25/24 22:37 History of Present Illness: This is a 44-year-old female with a history of liver transplantation, obesity, depression, chronic pain syndrome and chronic nausea and diabetes who presents to the emergency room with nausea and vomiting. She is hurting all over. She has not been to keep her pain meds down. No focal abdominal pain. Related Data Home Medications ?Medication ?Instructions ?Recorded ?Confirmed aspirin 81 mg tablet,delayed 81 mg PO BEDTIME 09/11/19 09/24/24 release Bupivacaine 10.66mg/Ml See Rx Instructions .Route .COMPLEX 03/23/21 09/24/24 acetaminophen 500 mg tablet 1,000 mg PO PRN 03/23/21 09/24/24 (Tylenol Extra Strength) atorvastatin 20 mg tablet 20 mg PO BEDTIME 03/23/21 09/24/24 cetirizine 10 mg tablet 10 mg PO DAILY 03/23/21 09/24/24 furosemide 20 mg tablet 20 mg PO DAILY PRN Edema 03/23/21 09/24/24 Held on 09/29/24. Instructions: Resume on 10/08/24. omeprazole 20 mg capsule,delayed 40 mg PO BEDTIME 03/23/21 09/24/24 release polyethylene glycol 3350 17 17 g PO DAILY PRN Constipation 03/23/21 09/24/24 gram/dose oral powder albuterol sulfate 90 mcg/actuation 1 puff inhalation Q6H PRN 09/24/24 09/24/24 aerosol inhaler (Ventolin HFA) Shortness Of Breath Or Wheezing amitriptyline 10 mg tablet 10 mg PO DAILY 09/24/24 09/24/24 atovaquone 750 mg/5 mL oral 360 mg PO DAILY 09/24/24 09/24/24 suspension (Mepron) carvedilol 25 mg tablet 25 mg PO BID 09/24/24 09/24/24 fluticasone 250 mcg-salmeterol 50 1 ea inhalation BID 09/24/24 09/24/24 mcg/dose blistr powdr for inhalation (Advair Diskus) morphine 8 mg/mL intravenous See Rx Instructions .Route 09/24/24 09/24/24 syringe .COMPLEX PRN Pain mycophenolate sodium 360 mg 360 mg PO BID 09/24/24 09/24/24 tablet,delayed release (Myfortic) oxycodone 10 mg tablet,oral ONLY 10 mg PO Q4H PRN Pain 09/24/24 09/24/24 (not feeding tubes) sennosides 8.6 mg-docusate sodium 1 tab-cap PO TID PRN constipation 09/24/24 09/24/24 50 mg tablet tacrolimus 1 mg capsule, 3 mg PO Q12H 09/24/24 09/24/24 immediate-release (Prograf) Held on 09/29/24. Instructions: Resume on 10/01/24. hold until tuesday, recheck tacrolimus level, barness will call you tiotropium bromide 18 mcg capsule 1 cap inhalation QPM 09/24/24 09/24/24 with inhalation device (Spiriva with HandiHaler) valganciclovir 450 mg tablet 450 mg PO DAILY 09/24/24 09/24/24 (Valcyte) Previous Rx's ?Medication ?Instructions ?Recorded blood sugar diagnostic (Blood #100 ea 03/18/20 Glucose Test strips) blood-glucose meter (Blood Glucose #1 ea 03/18/20 Monitoring kit) ferrous gluconate 324 mg (37.5 mg 324 mg PO EVERY OTHER DAY #15 tabs 05/02/21 iron) tablet pen needle, diabetic 31 gauge x ##100 02/12/2211/11 (TechLITE Pen Needle) insulin glargine 100 unit/mL (3 40 unit (0.4 mL) SUBCUT DAILY 30 09/29/24 mL) subcutaneous pen (Lantus days #15 mL Solostar U-100 Insulin) insulin lispro 100 unit/mL See Rx Instructions .Route 09/29/24 subcutaneous pen .COMPLEX #15 mL ondansetron HCl 8 mg tablet 8 mg PO Q8H PRN Nausea And 09/29/24 Vomiting 7 days #21 tabs cefdinir 300 mg capsule 300 mg PO BID 7 days #14 caps 10/26/24 ondansetron 8 mg disintegrating 8 mg PO Q6H #14 tabs 10/26/24 tablet promethazine 25 mg rectal 25 mg TN Q6H PRN nausea and 10/26/24 suppository vomiting #12 ea Allergies Allergy/AdvReac Type Severity Reaction Status Date / Time sulfamethoxazole (From Allergy Unknown Unknown Verified 10/25/24 22:37 Bactrim) trimethoprim (From Bactrim) Allergy Unknown Unknown Verified 10/25/24 22:37 lidocaine Allergy Unknown Verified 10/25/24 22:37 metformin AdvReac Mild diarrhea, Verified 10/25/24 22:37 vomiting Review of Systems Narrative: Constitutional symptoms: Negative except as documented in HPI. Skin symptoms: Negative except as documented in HPI. Eye symptoms: Negative except as documented in HPI. ENMT symptoms: Negative except as documented in HPI. Respiratory symptoms: Negative except as documented in HPI. Cardiovascular symptoms: Negative except as documented in HPI. Gastrointestinal symptoms: Negative except as documented in HPI. Genitourinary symptoms: Negative except as documented in HPI. Musculoskeletal symptoms: Negative except as documented in HPI. Neurologic symptoms: Negative except as documented in HPI. Psychiatric symptoms: Negative except as documented in HPI. Endocrine symptoms: Negative except as documented in HPI. PFSH ED PFSH: Medical History Pseudomonas pneumonia COVID-19 Morbid obesity with BMI of 45.0-49.9, adult ARDS (adult respiratory distress syndrome) Hyperlipidemia Depression Seasonal allergies Small fiber neuropathy Benign atrial arrhythmia Chronic nausea Related to gastroparesis and diabetes. Essential (primary) hypertension GERD (gastroesophageal reflux disease) Asthma Chronic pain syndrome Fibromyalgia Spinal cord stimulator status PAIN PUMP Surgical History S/P appendectomy S/P tubal ligation S/P section Family History Other Diabetes Hypertension Social History Smoking and tobacco/nicotine status: never used tobacco/nicotine Alcohol intake: never Substance/Drug Use: never Do you think of yourself as: Straight/Heterosexual Current gender identity: Female Physical Exam Narrative: EXAM NARRATIVE: General: Alert, patient actively dry heaving Skin: Warm, dry. Head: Normocephalic, atraumatic. Neck: Supple, trachea midline. Eye: Extraocular movements are intact. Ears, nose, mouth and throat: Dry oral mucosa Cardiovascular: Regular, Normal peripheral perfusion. Respiratory: Lungs are clear to auscultation, respirations are non-labored, breath sounds are equal, Symmetrical chest wall expansion. Gastrointestinal: Soft, Nontender, Non distended Musculoskeletal: Normal ROM, no deformity. Neurological: Alert and oriented, No focal neurological deficit observed. Psychiatric: Cooperative, appropriate mood & affect. Course Vital Signs: Vital signs: Vital Signs Temperature 97.8 F 10/25/24 22:32 Pulse Rate 79 10/25/24 22:32 Respiratory Rate 18 10/25/24 23:31 Blood Pressure 198/98 10/25/24 22:32 Pulse Oximetry 96 10/25/24 23:31 Oxygen Delivery Me thod Room Air 10/25/24 22:32 MDM - Nausea/Vomiting/Diarrhea Medical Decision Making Medical decision making: Differential diagnosis for this patient with nausea and vomiting including but not limited to and based on the above HPI, review of systems and physical exam: Urinary tract infection. Appendicitis. Cholecystis. colitis. small bowel obstruction. crohn's flare. pancreatitis. gastritis. peptic ulcer. cyclic vomiting. Viral illness. Influenza. COVID. Orders placed to evaluate differential diagnosis based on the above differential, HPI and physical exam Lab Review: Laboratory results were reviewed and interpreted by myself the emergency room physician. Mild leukocytosis. No anemia. No renal failure. Patient has a significant urinary tract infection with 21-50 whites and 3+ leukocyte Estrace. I reviewed the patient's medical record. Reexamination: Patient now tolerating p.o. Fluids given. IV antibiotics. No increased work of breathing at this time. Pain seems to be better under control. Assessment and plan: Urinary tract infection Vomiting Dehydration Liver transplant recipient ? IV fluids, IV Dilaudid, IV Zofran, IV Compazine and Benadryl, IV Rocephin -No signs of liver transplant rejection. Liver enzymes are normal. - Discharged home - Discussed plan with patient. Answered any questions. - Evaluation and treatment of this problem were appropriate in the emergency setting. Lab Data 10/25/24 23:11 10/25/24 23:11 Laboratory Results WBC 11.90 10^3/uL (3.29-11.43) H 10/25/24 23:11 RBC 5.61 10^6/uL (3.85-5.65) 10/25/24 23:11 Hgb 15.40 g/dL (11.27-16.99) 10/25/24 23:11 Hct 46.6 % (36-47) 10/25/24 23:11 MCV 83.1 fl (85-98) L 10/25/24 23:11 MCH 27.5 pg (27-33) 10/25/24 23:11 MCHC 33.0 g/dL (30-55) 10/25/24 23:11 RDW 19.3 % (12.1-15.1) H 10/25/24 23:11 Plt Count 222 10^3/cmm (157-399) 10/25/24 23:11 MPV 10.5 fL (7.4-10.4) H 10/25/24 23:11 Neut % (Auto) 85.5 % 10/25/24 23:11 Lymph % (Auto) 6.9 % 10/25/24 23:11 [place] % (Auto) 4.8 % 10/25/24 23:11 Eos % (Auto) 1.7 % 10/25/24 23:11 Baso % (Auto) 0.6 % 10/25/24 23:11 Neut # (Auto) 10.18 10^3/uL (1.8-7.7) H 10/25/24 23:11 Lymph # (Auto) 0.8 10^3/uL (0.8-4.8) 10/25/24 23:11 [place] # (Auto) 0.6 10^3/uL (0.2-0.9) 10/25/24 23:11 Eos # (Auto) 0.2 10^3/uL (0.0-0.8) 10/25/24 23:11 Baso # (Auto) 0.1 10^3/uL (0.0-0.1) 10/25/24 23:11 Nucleated RBC % (auto) 0 % 10/25/24 23:11 Nucleated RBCs # 0.0 /100WBC 10/25/24 23:11 Sodium 135 mmol/L (136-145) L 10/25/24 23:11 Potassium 4.7 mmol/L (3.5-5.1) 10/25/24 23:11 Chloride 97 mmol/L (98-107) L 10/25/24 23:11 Carbon Dioxide 24 mmol/L (22-29) 10/25/24 23:11 Anion Gap 18.7 (5-19) 10/25/24 23:11 BUN 15 mg/dL (6-20) 10/25/24 23:11 Creatinine 0.9 mg/dL (0.5-0.9) 10/25/24 23:11 GFR Calculation 68.0 mL/min (90-130) L 10/25/24 23:11 Glucose 212 mg/dL (65-115) H 10/25/24 23:11 Calculated Osmolality 287 mOsm/kg (285-295) 10/25/24 23:11 Lactic Acid 1.6 mmol/L (0.5-2.2) 10/25/24 23:11 Calcium 9.6 mg/dL (8.5-10.5) 10/25/24 23:11 Total Bilirubin 0.6 mg/dL (0.15-1.2) 10/25/24 23:11 AST 20 U/L (0-32) 10/25/24 23:11 ALT 24 U/L (0-33) 10/25/24 23:11 Alkaline Phosphatase 92 U/L (35-105) 10/25/24 23:11 Ammonia 21 umol/L (11-51) 10/25/24 23:11 C-Reactive Protein 8.1 mg/L (0.0-4.9) H 10/25/24 23:11 Total Protein 7.9 g/dL (6.6-8.7) 10/25/24 23:11 Albumin 4.4 g/dL (3.5-5.2) 10/25/24 23:11 Globulin 3.5 g/dL (1.3-4.6) 10/25/24 23:11 Lipase 41 U/L (13-60) 10/25/24 23:11 Urine Color Yellow (Yellow) 10/25/24 22:45 Urine Appearance Cloudy (CLEAR) A 10/25/24 22:45 Urine pH 8.5 (5-7) A 10/25/24 22:45 Ur Specific [place] 1.016 (1.005-1.030) 10/25/24 22:45 Urine Protein 1+ (Negative) A 10/25/24 22:45 Urine Glucose (UA) 1+ (Normal) H 10/25/24 22:45 Urine Ketones Trace (Negative) 10/25/24 22:45 Urine Blood Negative (Negative) 10/25/24 22:45 Urine Nitrate Negative (Negative) 10/25/24 22:45 Urine Bilirubin Negative (Negative) 10/25/24 22:45 Urine Urobilinogen 0.2 mg/dL (Negative) 10/25/24 22:45 Ur Leukocyte Esterase 3+ (Negative) A 10/25/24 22:45 Urine RBC None /hpf (0-2) 10/25/24 22:45 Urine WBC 21-50 /hpf (0-5) H 10/25/24 22:45 Ur Squamous Epith Cells 0-4 /hpf (0-5) H 10/25/24 22:45 Amorphous Sediment Not Reportable 10/25/24 22:45 Urine Bacteria 4+ /hpf (NONE) H 10/25/24 22:45 No radiology studies performed this visit Discharge Plan Discharge Patient Disposition: Home Clinical Impression: Urinary tract infection, History of liver transplant, Dehydration, Nausea & vomiting, Chronic pain syndrome Condition: Stable Prescriptions: New promethazine 25 mg suppository 25 mg TN Q6H PRN (Reason: nausea and vomiting) Qty: 12 0RF ondansetron 8 mg tablet,disintegrating 8 mg PO Q6H Qty: 14 0RF Rx Instructions: Take 1/2-1 tab every 6 hours as needed for nausea and vomiting cefdinir 300 mg capsule 300 mg PO BID 7 Days Qty: 14 0RF No Action aspirin 81 mg tablet,delayed release (DR/EC) 81 mg PO BEDTIME (DME) blood-glucose meter [Blood Glucose Monitoring] Kit See Rx Instructions .ROUTE .MEDSUPPLY Qty: 1 0RF Rx Instructions: As directed (DME) Blood Glucose Test Strip See Rx Instructions .ROUTE .MEDSUPPLY Qty: 100 1RF Rx Instructions: As directed (DME) pen needle, diabetic [TechLITE Pen Needle] 31 gauge x 3/16 needle See Rx Instructions .ROUTE .COMPLEX Qty: 100 11RF Dose Instruction: USE WITH INSULIN 5 TIMES DAILY Rx Instructions: USE WITH INSULIN 5 TIMES DAILY atorvastatin 20 mg tablet 20 mg PO BEDTIME cetirizine 10 mg tablet 10 mg PO DAILY acetaminophen [Tylenol Extra Strength] 500 mg Tablet 1,000 mg PO PRN furosemide 20 mg tablet 20 mg PO DAILY PRN (Reason: Edema) polyethylene glycol 3350 17 gram/dose powder 17 g PO DAILY PRN (Reason: Constipation) omeprazole 20 mg capsule,delayed release(DR/EC) 40 mg PO BEDTIME Bupivacaine 10.66mg/Ml See Rx Instructions .ROUTE .COMPLEX Rx Instructions: 2.1054 MG OVER A 24 HOUR PERIOD FROM PAIN PUMP ferrous gluconate 324 mg (37.5 mg iron) Tablet 324 mg PO EVERY OTHER DAY Qty: 15 0RF valganciclovir [Valcyte] 450 mg Tablet 450 mg PO DAILY carvedilol 25 mg Tablet 25 mg PO BID Rx Instructions: must administer with a meal/food tacrolimus [Prograf] 1 mg Capsule 3 mg PO Q12H atovaquone [Mepron] 750 mg/5 mL Suspension 360 mg PO DAILY Rx Instructions: must administer with food, preferably a high-fat meal mycophenolate sodium [Myfortic] 360 mg Tablet,Delayed Release (Dr/Ec) 360 mg PO BID fluticasone propion-salmeterol [Advair Diskus] 250-50 mcg/dose blister with device 1 ea INHALATION BID sennosides-docusate sodium 8.6-50 mg Tablet 1 tab-cap PO TID PRN (Reason: constipation ) amitriptyline 10 mg Tablet 10 mg PO DAILY albuterol sulfate [Ventolin HFA] 90 mcg/actuation HFA aerosol inhaler 1 puff INHALATION Q6H PRN (Reason: Shortness Of Breath Or Wheezing) tiotropium bromide [Spiriva with HandiHaler] 18 mcg capsule, w/inhalation device 1 cap INHALATION QPM morphine 8 mg/mL Syringe See Rx Instructions .ROUTE .COMPLEX PRN (Reason: Pain) Rx Instructions: 1.58 MG OVER A 24 HOUR PERIOD FROM PAIN PUMP oxycodone 10 mg Tablet, Oral Only 10 mg PO Q4H PRN (Reason: Pain) insulin lispro 100 unit/mL Insulin Pen See Rx Instructions .ROUTE .COMPLEX Qty: 15 0RF Rx Instructions: Inject subcut, 3 times daily, after meals, based on insulin sliding scale provided insulin glargine [Lantus Solostar U-100 Insulin] 100 unit/mL (3 mL) insulin pen 40 unit SUBCUT DAILY 30 Days Qty: 15 0RF ondansetron HCl 8 mg tablet 8 mg PO Q8H PRN (Reason: Nausea And Vomiting) 7 Days Qty: 21 0RF Discharge Orders: Discharge ED (Routine); Ordered 10/26/24 Ordered By: Melany Rodriguez Referrals: En Dowell DO [Primary Care Provider] - Discharge Diet: Advance as tolerated Discharge Activity: Increase activity as tolerated Patient Instructions: Urinary Tract Infection in Women (DC), Opioid Safety, Pain Management Activity Restrictions/Additional Instructions: Thank you for choosing [facility] for your healthcare needs today. Please realize this is an emergency room and that we are providing you with a medical screening exam and this may not be complete and all inclusive of all the testing and or work up that you may need to determine your ailment or severity of your illness. You have been screened and evaluated and felt safe for discharge. Health conditions do change or evolve sometimes and as such it is important that you follow up with your Primary Doctor to be re checked, 3-5 days is a general good time frame for follow up. You are always welcome to return to the ED for re assessment if your symptoms are worsening or you have new concerns Print Language: Turkish Coding Level of Care Code ED Otr Truck Driver for Katarzyna Vidal
[2024-10-25 23:26] LABS: Basophils # 0.1 10^3/uL (0.0-0.1); Basophils % 0.6 %; Eosinophils # 0.2 10^3/uL (0.0-0.8); Eosinophils % 1.7 %; Hematocrit 46.6 % (36-47); Lymphocytes # 0.8 10^3/uL (0.8-4.8); Lymphocytes % 6.9 %; Mean Corpuscular Hemoglobin 27.5 pg (27-33); Mean Corpuscular Volume 83.1 fl (85-98); Mean Platelet Volume 10.5 fL (7.4-10.4); Monocytes # 0.6 10^3/uL (0.2-0.9); Monocytes % 4.8 %; Neutrophils # 10.18 10^3/uL (1.8-7.7); Neutrophils % 85.5 %; Nucleated Red Blood Cells % 0 %; Platelet Count 222 10^3/cmm (157-399); Red Blood Count 5.61 10^6/uL (3.85-5.65); Red Cell Distribution Width 19.3 % (12.1-15.1)
[2024-10-25] MEDS: sodium chloride 0.9% 1,000 ML 999 ML IV (23:29)
[2024-10-25 23:31] VITALS: RESP 18; O2SAT 96
[2024-10-25] MEDS: ondansetron 2 mg/ML SDV 2 mL 8 MG IVP (23:31)
[2024-10-25] MEDS: HYDROmorphone 1 mg/mL INJ 1 mL IVP (23:31)
[2024-10-25] MEDS: diphenhydrAMINE 50 mg/mL SDV 1mL 25 MG IVP (23:31)
[2024-10-25] MEDS: prochlorperazine 10 mg/2 mL Inj IVP (23:31)
[2024-10-25 23:44] LABS: Lactic Sepsis W/Reflex 1.6 mmol/L (0.5-2.2)
[2024-10-25 23:48] LABS: Ammonia 21 umol/L (11-51)
[2024-10-25 23:51] LABS: Alanine Aminotransferase 24 U/L (0-33); Albumin Level 4.4 g/dL (3.5-5.2); Alkaline Phosphatase 92 U/L (35-105); Anion Gap 18.7 (5-19); Aspartate Amino Transferase 20 U/L (0-32); Blood Urea Nitrogen 15 mg/dL (6-20); C Reactive Protein 8.1 mg/L (0.0-4.9); Calcium 9.6 mg/dL (8.5-10.5); Carbon Dioxide 24 mmol/L (22-29); Chloride 97 mmol/L (98-107); Creatinine Clr Calc Pharmacy 111.1593; Globulin 3.5 g/dL (1.3-4.6); Glucose 212 mg/dL (65-115); Lipase 41 U/L (13-60); Osmolality Calculated 287 mOsm/kg (285-295); Potassium 4.7 mmol/L (3.5-5.1); Sodium 135 mmol/L (136-145); Total Bilirubin 0.6 mg/dL (0.15-1.2); Total Protein 7.9 g/dL (6.6-8.7)
--- NOTE | 2024-10-26 00:15 | PC.NURSE ---
Delay in continuation of IV fluids and antibiotic due to infiltration of previous IV. Warm compress applied at this time.
[2024-10-26 01:04] LABS: Influenza A NEGATIVE (Negative); Influenza B NEGATIVE (Negative); Respiratory Syncytial Virus Ce NEGATIVE (Negative); SARS-CoV-2 PCR NEGATIVE (Negative)
[2024-10-26] MEDS: cefTRIAXone 1,000 mg SDV 1000 MG IVP (01:21)
[2024-10-26 02:06] VITALS: PULSE 78; O2SAT 96
[2024-10-26 02:58] VITALS: BP 184/107; PULSE 86; O2SAT 98
== END 2024-10-26 03:01 | disposition home or self-care (01) ==
PROVIDERS: Emergency Provider Emergency Medicine; PCP Family Medicine
DX: N39.0 Urinary tract infection, site not specified (principal); Z94.4 Liver transplant status; R11.2 Nausea with vomiting, unspecified; E86.0 Dehydration; G89.4 Chronic pain syndrome; Z79.82 Long term (current) use of aspirin; Z79.4 Long term (current) use of insulin; E78.5 Hyperlipidemia, unspecified
CPT/HCPCS: 36415; 80053; 81001; 82140; 83605; 83690; 85025; 86140; 87040; 87077; 87086; 87186; 87637; 96361; 96374; 96375; 99284; J0696; J0780; J1171; J1200; J2405; J7030

== ENCOUNTER 2025-04-22 10:12 | Emergency (ER) | payer MEDICAID, SELFPAY ==
--- OUTSIDE RECORDS SUMMARY | 2025-04-22 10:19 | XMS_ITS | Encounter Summary ---
Author Organization [facility] Address [address] [place] [address] Care Team Providers Care Cloth Handler Name Role Phone En Dowell DO Primary Care Provider Encounter Details Date Type Department Care Team (Late Contact Info) Description 03/27/2025 Results Follow-Up [address] [phone] En Dowell DO [address] [place] [phone] HEMOGLOBIN A1C Social History Tobacco Use Types Packs/Day Years Used Date Smoking Tobacco: Former Cigarettes Q uit: 08/29/2008 Passive Smoke Exposure: Never Smokeless Tobacco: Never Alcohol Use Standard Drinks/Week Comments Not Currently 0 (1 standard drink = 0.6 oz pur e alcohol) Comments No Sex and Gender Information Value Date Recorded Sex Assigned at Not on file 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 Gender Identity Not on file Sexual Orientation Not on file documented as of this encounter Plan of Treatment Upcoming Encounters Date Type Department Care Team (Late st Contact Info) Description 06/14/2025 2:00 PM CDT Office Visit [address] [phone] En Dowell DO [address] [place] [phone] 07/01/2025 9:00 AM CAR LUBRICATOR Office Visit [facility] [address] [place] [address] Tristin Estrella MD [address] [place] [address] documented as of this encounter Visit Diagnoses Not on filedocumented in this encounter Care Teams Cloth Handler Relationship Specialty Start Date End Date nE Dowell DO [address] [place] [address] PCP - General Family Practice 06/16/20 documented as of this encounter
--- OUTSIDE RECORDS SUMMARY | 2025-04-22 10:19 | XMS_ITS | Encounter Summary ---
Author Organization [facility] Address [address] [place] [address] Care Team Providers Care Assembly Loader Name Role Phone En Dowell DO Primary Care Provider Encounter Details Date Type Department Care Team (Late Contact Info) Description 04/15/2025 Orders Only [address] [address] En Dowell DO [address] [place] [phone] S/P liver transplant (CMS/HCC) Social History Tobacco Use Types Packs/Day Years Used Date Smoking Tobacco: Former Cigarettes Q uit: 08/29/2008 Passive Smoke Exposure: Never Smokeless Tobacco: Never Alcohol Use Standard Drinks/Week Comments Not Currently 0 (1 standard drink = 0.6 oz pur e alcohol) Comments No Sex and Gender Information Value Date Recorded Sex Assigned at Not on file 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 Gender Identity Not on file Sexual Orientation Not on file documented as of this encounter Plan of Treatment Upcoming Encounters Date Type Department Care Team (Late Contact Info) Description 06/14/2025 2:00 PM CDT Office Visit [address] [phone] En Dowell DO [address] [address] 07/01/2025 9:00 AM INTERIOR DESIGN PROJECT MANAGER Office Visit [facility] [address] [place] [address] Tristin Estrella MD [address] [place] [address] documented as of this encounter Procedures Procedure Name Priority Date/Time Associated Diagnosis Comments CMV BY PCR Stat 04/18/2025 10:34 AM CDT TACROLIMUS LEVEL Stat 04/18/2025 10:3 4 AM CDT S/P liver transplant (CMS/HCC) CBC WITH DIFFERENTIAL Stat 04/18/2025 10:34 AM CDT GGT Stat 04/18/2025 10:34 AM CDT COMPREHENSIVE METABOLIC PANEL Stat 04/18/2025 10:34 AM CDT documented in this encounter Results * CMV BY PCR (04/18/2025 10:34 AM CDT) CYTOMEGALOVIRUS, QUANT IU/ML Not Detected Not Detected IU/mL [facility] CYTOMEGALOVIRUS BY PCR, QUANT LOG IU/ML Not Detected Not Detected Log IU/mL [facility] Comment: (Note) For additional information, please refer to http://education.ideacts innovations.[employer]/faq/CMVandEBVPCR (This link is being provided for informational/educational purposes only.) N[facility] [address] [facility] [address] [facility] [address] Myles Llanos MD, PhD Test Performed at: [facility] [address] [facility] [address], [address] [place] [address] Myles Llanos MD,PhD 04/18/2025 10:3 4 AM CDT 04/18/2025 10:34 AM CDT us En Dowell DO CHEMISTRY ORDERABLES Final Re sult [facility] [phone] [facility] [address] [address], [address] [place] [address] * (ABNORMAL) COMPREHENSIVE METABOLIC PANEL (04/18/2025 10:34 AM CDT) GLUCOSE 165(H) 65 - 99 mg/dL [facility] Comment: Fasting reference interval For someone without known diabetes, a glucose value >125 mg/dL indicates that they may have diabetes and this should be confirmed with a follow-up test. BUN 15 7 - 25 mg/dL [facility] CREATININE 0.81 0.50 - 0.99 mg/dL [facility] GFR 92 > OR = 60 mL/min/1. 73m2 [facility] BUN/CREAT RATIO SEE NOTE: 6 - 22 (calc) [facility] Comment: Not Reported: BUN and Creatinine are within reference range. SODIUM 139 135 - 146 mmol/L [facility] POTASSIUM 4.6 3.5 - 5.3 mmol/L [facility] CHLORIDE 102 98 - 110 mmol/L [facility] CO2 28 20 - 32 mmol/L [facility] CALCIUM 9.4 8.6 - 10.2 mg/dL [facility] TOTAL PROTEIN 7.1 6.1 - 8.1 g/dL [facility] ALBUMIN 4.3 3.6 - 5.1 g/dL [facility] GLOBULIN 2.8 1.9 - 3.7 g/dL (calc) [facility] ALBUMIN/GLOBULIN RATIO 1.5 1.0 - 2.5 (calc) [facility] BILIRUBIN TOTAL 0.5 0.2 - 1.2 mg/dL [facility] ALKALINE PHOSPHATASE 85 31 - 125 U/L [facility] AST 26 10 - 30 U/L [facility] ALT 33(H) 6 - 29 U/L [facility] Comment: Test Performed at: [facility] [address] [place] [id number] [facility] At[facility] MD 04/18/2025 10:3 4 AM CDT 04/18/2025 10:34 AM CDT [facility] CHEMISTRY ORDERABLES Final Re sult Performing Organization Address City/[facility]/ZIP Co de Phone Number [facility] [phone] [facility] [address] * (ABNORMAL) GGT (04/18/2025 10:34 AM CDT) Pathologist [facility] GGT 163(H) 3 - 55 U/L [facility] Comment: Test Performed at: [facility] [address] [facility] At[facility] MD 04/18/2025 10:3 4 AM CDT 04/18/2025 10:34 AM CDT En [facility] CHEMISTRY ORDERABLES Final Re sult Performing Organization Address [facility] Co de Phone Number [facility] [phone] [facility] [address] * (ABNORMAL) CBC WITH DIFFERENTIAL (04/18/2025 10:34 AM CDT) Pathologist [facility] WBC 7.7 3.8 - 10.8 Thousand/u L [facility] RBC 4.97 3.80 - 5.10 Million/uL [facility] HEMOGLOBIN 14.3 11.7 - 15.5 g/dL [facility] HEMATOCRIT 45.3(H) 35.0 - 45.0 % [facility] MCV 91.1 80.0 - 100.0 fL [facility] MCH 28.8 27.0 - 33.0 pg [facility] MCHC 31.6(L) 32.0 - 36.0 g/dL [facility] Comment: For adults, a slight decrease in the calculated MCHC value (in the range of 30 to 32 g/dL) is most likely not clinically significant; however, it should be interpreted with caution in correlation with other red cell parameters and the patient's clinical condition. RDW 16.6(H) 11.0 - 15.0 % [facility] PLATELETS 250 140 - 400 Thousand/u L [facility] MPV 10.6 7.5 - 12.5 fL [facility] NEUTROPHIL ABSOLUTE 5,198 1,500 - 7,800 cells/uL [facility] LYMPHOCYTE ABSOLUTE 1,887 850 - 3,900 cells/uL [facility] MONOCYTE ABSOLUTE 408 200 - 950 cells/uL [facility] EOSINOPHIL ABSOLUTE 139 15 - 500 cells/uL [facility] BASOPHILS ABSOLUTE 69 0 - 200 cells/uL [facility] NEUTROPHIL 67.5 % [facility] LYMPHOCYTES 24.5 % [facility] MONOCYTE 5.3 % [facility] EOSINOPHILS 1.8 % [facility] BASOPHILS 0.9 % [facility] Comment: Test Performed at: [facility] [address] [address] Olu Atkins MD 04/18/2025 10:3 4 AM CDT 04/18/2025 10:34 AM CDT En Dowell DO HEMATOLOGY ORDERABLES Final R esult [facility] [phone] [facility] [address] [address] * TACROLIMUS LEVEL (04/18/2025 10:34 AM CDT) TACROLIMUS LEVEL 8.1 mcg/L [facility] Comment: No definitive therapeutic or toxic ranges have been established. Optimal blood drug levels are influenced by type of transplant, patient response, time post- transplant, co-administration of other drugs, and drug formulation. The following trough range is a suggested guideline: 5.0-20.0 mcg/L. Test Performed at: [facility] [address] [address] [facility] [place] [address] Olu Atkins MD Blood 04/18/2025 10:3 4 AM CDT 04/18/2025 10:34 AM CDT En Dowell DO CHEMISTRY ORDERABLES Final Re sult [facility] [phone] [facility] [address] [address] [facility] [place] [address] documented in this encounter Visit Diagnoses Diagnosis S/P liver transplant (CMS/HCC) Liver replaced by transplant documented in this encounter Care Teams Assembly Loader Relationship Specialty Start Date End Date En Dowell DO [address] [place] [address] PCP - General Family Practice 06/16/20 documented as of this encounter
--- OUTSIDE RECORDS SUMMARY | 2025-04-22 10:19 | XMS_ITS | Clinical Summary ---
Author Organization [facility] Address [address] [address] Care Team Providers Care Hatchery Helper Name Role Phone En Dowell Primary Care Provider [phone] Allergies Active Allergy Reactions Criticality Noted Date Comments Metformin Diarrhea Low 07/11/2019 Sulfamethoxazole-Trimethoprim Rash Low 2018 Medications OTHER Walking cane 1 Each 0 Active TechLITE Pen Needle 31 gauge x 1/4 Needle 0 Active ondansetron (ZOFRAN) 8 mg Tablet Take 1 Tablet (8 mg) by mouth every 8 hours as needed for Nausea/Emesis. 270 Tablet 3 0 Active cetirizine (ZyrTEC) 10 mg tablet Take 1 Tablet (10 mg) by mouth daily. 90 Tablet 3 0 Active lisinopriL (PRINIVIL) 40 mg tablet Take 1 Tablet (40 mg) by mouth daily. 90 Tablet 3 0 Active ProAir HFA 90 mcg/actuation inhaler Take 1 Puff by inhalation every 6 hours as needed for Shortness of Breath. 18 Gram 3 0 Active atenoloL (TENORMIN) 25 mg tablet Take 1 Tablet (25 mg) by mouth daily. 90 Tablet 3 0 Active NovoLOG Flexpen U-100 Insulin 100 unit/mL (3 mL) pen syringe Inject 50 Units by subcutaneous injection 3 times daily with meals. 135 mL 3 0 Active Levemir FlexTouch U-100 Insuln 100 unit/mL (3 mL) pen syringe Inject 120 Units by subcutaneous injection 2 times daily. 220 mL 3 0 Active magnesium hydroxide (MILK OF MAGNESIA) 400 mg/5 mL suspension Take 30 mL by mouth 1 time daily as needed for Constipation. As needed 0 Active magnesium hydroxide (MILK OF MAGNESIA) 311 mg Tablet, Chewable Take 1-2 Tablets (311-622 mg) by mouth every 4 hours as needed for Dyspepsia. 240 Tablet 2 0 Active furosemide (LASIX) 20 mg tablet Take 1 Tablet (20 mg) by mouth daily. Prn for edema 90 Tablet 3 0 Active aspirin (SUZETTE CHEWABLE) 81 mg Tablet, Chewable Take 1 Tablet (81 mg) by mouth daily. 90 Tablet 3 0 Active omeprazole (PriLOSEC) 40 mg Capsule, Delayed Release(E.C.) Take 1 Capsule (40 mg) by mouth daily at bedtime. 90 Capsule 3 0 Active DULoxetine 40 mg Capsule, Delayed Release(E.C.)In dications:Chron ic pain syndrome,Small fiber neuropathy,Neur opathic pain Take 40 mg by mouth daily. 30 Capsule 2 0 Active atorvastatin (LIPITOR) 20 mg tablet 0 Active polyethylene glycol 3350 (MIRALAX) 17 gram/dose Powder 0 Active baclofen (LIORESAL) 10 mg tabletIndicatio ns:Chronic pain syndrome,Small fiber neuropathy,Musc le cramping Take 1 Tablet (10 mg) by mouth 3 times daily. 90 Tablet 1 1 Active Flovent HFA 220 mcg/actuation HFA Aerosol Inhaler INHALE 2 PUFF(S) BY MOUTH EVERY 12 HOURS 12 Gram 2 1 Active OTHERIndication s:Chronic pain syndrome,Presen ce of intrathecal pump,Peripheral polyneuropathy, Small fiber neuropathy,Neur opathic pain (Morphine 8 mg and Bupivacaine 10.66 mg)/ml. 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 06/16/2020 Acute foot pain, right 03/27/2020 Sprain of foot, right, initial encounter 020 Chronic pain syndrome 07/11/2019 Presence of intrathecal pump 07/11/2019 Peripheral polyneuropathy 07/11/2019 Small fiber neuropathy 07/11/2019 Neuropathic pain 07/11/2019 Asthma Family History Medical History Relation Name Comments Diabetes Brother Heart Disease Brother Hypertension Brother Cancer Father Diabetes Father Heart Disease Father Hypertension Father Cancer Maternal Grandfather Hypertension Maternal Grandfather Cancer Maternal Grandmother Heart Disease Maternal Grandmother Hypertension Maternal Grandmother Cancer Mother Heart Disease Mother Hypertension Mother Cancer Paternal Grandfather Diabetes Paternal Grandfather Hypertension Paternal Grandfather Cancer Paternal Grandmother Hypertension Paternal Grandmother Heart Disease Sister 1 Hypertension Sister 1 Hypertension Sister 2 Relation Name Status Comments Brother Father Maternal Grandfather Maternal Grandmother Mother Paternal Grandfather Paternal Grandmother Sister 1 Sister 2 Social History Tobacco Use Types Packs/Day Years Used Date Smoking Tobacco: Former Cigarettes Q uit: 2009 Smokeless Tobacco: Never Tobacco Cessation:Counseling Given: No Alcohol Use Standard Drinks/Week Comments Not Currently 0 (1 standard drink = 0.6 oz pur e alcohol) Comments No Sex and Gender Information Value Date Recorded Sex Assigned at Not on file Legal Sex Female 1:51 PM FLOOR HAND Gender Identity Not on file Sexual Orientation Not on file Last Filed Vital Signs Vital Sign Reading Time Taken Comments Blood Pressure 140/76 11/10/2020 9:53 AM CDT Pulse 80 11/10/2020 9:53 AM CDT Temperature 36.7 C (98.1 F) 11/10/2020 9:53 AM CDT Respiratory Rate 20 11/10/2020 9:53 AM CDT Oxygen Saturation 95% 11/10/2020 9:53 AM CDT Inhaled Oxygen Concentration - - Weight 148 kg (326 lb 3.2 oz) 11/10/2020 9:53 AM CDT Height 177.8 cm (5' 10 ) 11/10/2020 9:53 AM CDT Body Mass Index 46.8 11/10/2020 9:53 AM CDT Plan of Treatment Health Maintenance Due Date Last Done Comments DIABETES ANNUAL FOOT EXAM 1998 DIABETES HBA1C Q 6 MONTHS 1998 DIABETES MICROALBUMIN ANNUAL SCREEN 1998 LDL CHOLESTEROL ANNUAL 1998 DTAP/TDAP/TD VACCINES (1 - Tdap) 1999 HEPATITIS B VACCINES (1 of 3 - 19+ 3-dose series) 1999 HPV/Cotest (21-29) 2001 HPV VACCINES (1 - 3-dose SCDM series) 2007 CERVICAL CANCER SCREENING 2010 HPV/Cotest (30-65) 2010 PAP SMEAR 2010 BREAST CANCER SCREENING 2020 DIABETES ANNUAL RETINAL EXAM 09/03/2023 09/03/2022 INFLUENZA VACCINE (#1) 2025 06/16/2020 Preventative Visit-Managed Medicaid 11/15/2025 11/14/2024, 05/24/2023, 07/30/2022 Insurance MEDICAID [place] Care Teams Hatchery Helper Relationship Specialty Start Date End Date En Dowell DO [address] [place] [address] PCP - General Family Practice 06/16/20
--- OUTSIDE RECORDS SUMMARY | 2025-04-22 10:19 | XMS_ITS | Encounter Summary ---
Author Organization [facility] Address [address] [place] [address] Care Team Providers Care Patient Financial Services Coordinator Name Role Phone En Dowell DO Primary Care Provider Encounter Details Date Type Department Care Team (Late Contact Info) Description 04/22/2025 Orders Only [address] [phone] En Dowell DO [address] [place] [address] S/P liver transplant (CMS/HCC) Social History [...] on file Legal Sex Female 9:41 PM PRODUCT EXPERT Gender Identity Not on file Sexual Orientation Not on file documented as of this encounter Plan of Treatment Upcoming Encounters Date Type Department Care Team (Late Contact Info) Description 06/14/2025 2:00 PM CDT Office Visit [address] [address] En Dowell DO [address] [address] 07/01/2025 9:00 AM PRODUCT EXPERT Office Visit [facility] [address] [place] [address] Tristin Estrella MD [address] [place] [address] documented as of this encounter Visit Diagnoses Diagnosis S/P liver transplant (CMS/HCC) Liver replaced by transplant documented in this encounter Care Teams Patient Financial Services Coordinator Relationship Specialty Start Date End Date En Dowell DO [address] [place] [address] PCP - General Family Practice 06/16/20 documented as of this encounter
--- OUTSIDE RECORDS SUMMARY | 2025-04-22 10:19 | XMS_ITS | Clinical Summary ---
Author Organization [facility] Address [address] [address] Care Team Providers Care Combatant Swimmer Name Role Phone En Dowell DO Primary Care Provider [phone] Allergies Active Allergy Reactions Criticality Noted Date Comments Cephalexin Nausea and Vomiting Low 11/11/2016 Ibuprofen Hives,Rash High 09/06/2015 Pt has gastroenteropathy - not able to take ibuprofen Pt has gastroenteropathy - not able to take ibuprofen Lidocaine Nausea and Vomiting,Other (See Comments) Low 01/16/2024 Metformin Diarrhea Low 07/11/2019 Sulfa (Sulfonamide Antibiotics) Unknown 04/21/2021 Sulfamethoxazole-Tr imethoprim Rash Low 07/11/2019 Medications Blood-Glucose Meter KitIndications:Ty pe 1 diabetes mellitus with diabetic polyneuropathy ([facility]) Check 4 times daily before each meal and at bedtime. 1 Each 06/10/20 21 Active oxymetazoline (Afrin, oxymetazoline,) 0.05 % Mist Administer 2 Sprays in each nostril 2 times daily. 14.7 mL 06/12/20 21 Active fluticasone propionate (FLONASE) 50 mcg/spray [place], Suspension nasal inhalerIndication s:Moderate persistent asthma, unspecified whether complicated Administer 2 Sprays in each nostril daily. 16 Gram 11 07/30/20 22 Active Blood Pressure Test Kit-Large KitIndications:HT N (hypertension), benign Use to measure blood pressure daily 1 Each 09/24/19 23 Active oxygen home deliveryIndicatio ns:Chronic respiratory failure with hypoxia ([facility]) Home Oxygen Concentrator yes at 1-2 L/M Rest, 2 L/M Activity, 2 L/M Sleep, Delivery Device: Nasal Cannula Portability: yes, See separate order, May provide device best for patient needs(E system,home fill, conserving device) Length of Need: 99 months 1 Each 12/31/19 23 Active portable oxygenIndications :Chronic respiratory failure with hypoxia ([facility]/HCC) Face to Face completed within 30 days: yes Length of Need: 99 months Requesting portable Concentrator at 1-2 L/M Rest, 2 L/M Activity Delivery Device: Nasal Cannula FAX TO [employer] 1 Each 12/31/19 23 Active aspirin (SUZETTE CHEWABLE) 81 mg Tablet, ChewableIndicatio ns:Type 1 diabetes mellitus with diabetic polyneuropathy ([facility]/HCC),HTN (hypertension), benign TAKE ONE TABLET BY MOUTH EVERY DAY 90 Tablet 3 03/07/20 23 Active naloxone (NARCAN) 1 mg/mL Syringe Inject 4 mg by intramuscular injection. Active magnesium hydroxide (MILK OF MAGNESIA) 311 mg Tablet, Chewable Take by mouth. PRN 06/16/20 20 Active docusate sodium (COLACE) 100 mg capsule Take 100 mg by mouth. 03/11/20 23 Active oxygen conserving device evaluation Administer in each nostril. Active glucagon (glucagon emergency) 1 mg Recon SolnIndications:T ype 1 diabetes mellitus with diabetic polyneuropathy ([facility]/HCC) Inject 1 mg by intramuscular injection one time as needed for Blood Sugar. 2 Each 1 07/25/20 23 Active Insulin [place], Disposable, (TechLITE Pen Needle) 31 gauge x 5/16 NeedleIndications :Type 1 diabetes mellitus with diabetic polyneuropathy ([facility]/HCC) USE TO INJECT INSULIN 4 TIMES DAILY BEFORE MEALS AND AT BEDTIME DX E10.42 100 Each 3 08/30/19 24 Active furosemide (LASIX) 20 mg tablet Take 1 Tablet (20 mg) by mouth daily. 90 Tablet 3 10/27/19 24 Active acetaminophen (TYLENOL) 500 mg Capsule Take 1,000 mg by mouth every 8 hours. 01/22/20 24 Active blood sugar diagnostic Strip 1 Strip 4 times daily before meals and at bedtime. 01/19/20 24 Active lancets 30 gauge 1 lancet QID with meals and at bedtime. Max of 28/week 01/16/20 24 Active ferrous sulfate 325 mg (65 mg iron) tablet Take 1 Tablet (325 mg) by mouth daily. 30 Tablet 3 07/20/20 Active Additional Information Patient not taking.Reported on 12/21/2024 cloNIDine HCL (CATAPRES) 0.1 mg tabletIndications :HTN (hypertension), benign Take 1 Tablet (0.1 mg) by mouth 2 times daily as needed for Blood Pressure. For BP over 160 systolic or 95 diastolic. 60 Tablet 1 09/29/19 25 Active fluticasone propion-salmetero L (Advair Diskus) 250-50 mcg/dose disk inhalerIndication s:Asthma due to seasonal allergies Take 1 Puff by inhalation 2 times daily. 1 Each 10/01/19 25 Active albuterol sulfate HFA 90 mcg/actuation aerosol inhalerIndication s:Asthma due to seasonal allergies Take 2 Puffs by inhalation every 4 hours as needed for Shortness of Breath. 18 Gram 10/01/19 25 Active tiotropium (Spiriva with HandiHaler) 18 mcg capsuleIndication s:Moderate persistent asthma, unspecified whether complicated Take 1 Capsule (18 mcg) by inhalation daily. 30 Capsule 10/01/19 25 Active insulin glargine (LANTUS) 100 unit/mL pen syringeIndication s:Type 1 diabetes mellitus with diabetic polyneuropathy (CMS/HCC) Inject 40-80 Units by subcutaneous injection daily with breakfast. 60 mL 11/15/19 25 Active Blood-Glucose Sensor (Dexcom G7 Sensor) DeviceIndications :Type 1 diabetes mellitus with diabetic polyneuropathy (CMS/HCC) Change every 10 days. Use to monitor blood glucose continuously throughout the day. Uses sliding scale insulin. Administers insulin 4 or more times per day. 9 Each 11/15/19 25 Active cetirizine (Allergy Relief, cetirizine,) 10 mg tabletIndications :Asthma due to seasonal allergies Take 1 Tablet (10 mg) by mouth daily. 90 Tablet 11/15/19 25 Active gabapentin (NEURONTIN) 600 mg tablet Take 600 mg by mouth 3 times daily. 12/20/19 25 026 Active fluconazole (DIFLUCAN) 150 mg tablet Take 1 Tablet (150 mg) by mouth every third day. 2 Tablet 12/28/19 25 Active methocarbamoL (ROBAXIN) 500 mg tabletIndications :Chronic pain syndrome,Muscle cramping Take 2 Tablets (1,000 mg) by mouth 3 times daily. 180 Tablet 2 01/29/20 25 Active insulin aspart U-100 (NovoLOG Flexpen U-100 Insulin) 100 unit/mL pen syringeIndication s:Type 1 diabetes mellitus with diabetic polyneuropathy (CMS/HCC) Inject 17 Units by subcutaneous injection 4 times daily with meals and at bedtime. Low-dose Regimen Insulin Sliding Scale: 2 units for blood glucose 120-160 mg/dL, 4 units for blood glucose 161-200 mg/dL, 6 units for blood glucose 201-240 mg/dL, 8 units for blood glucose 241-280 mg/dL, 11 units for blood glucose 281-320 mg/dL, 15units for blood glucose > 321 mg/dL. Max 90 units daily 30 mL 02/13/20 25 Active Additional Information Patient not taking.Reason: Other (Comments) (Hold until Humalog coverage determined), Reported on 02/15/2025 carvediloL (COREG) 25 mg tablet TAKE ONE TABLET BY MOUTH TWICE A DAY WITH MEALS 60 Tablet 02/14/20 25 Active pantoprazole (PROTONIX) 40 mg Tablet, Delayed Release (E.C.) TAKE ONE TABLET (40MG TOTAL) BY MOUTH DAILY 30 Tablet 02/14/20 25 Active insulin lispro (HumaLOG KwikPen Insulin) 100 unit/mL pen syringeIndication s:Type 1 diabetes mellitus with diabetic polyneuropathy (CMS/HCC) Inject 17 Units by subcutaneous injection 4 times daily with meals and at bedtime. Low-dose Regimen Insulin Sliding Scale: 2 units for blood glucose 120-160 mg/dL, 4 units for blood glucose 161-200 mg/dL, 6 units for blood glucose 201-240 mg/dL, 8 units for blood glucose 241-280 mg/dL, 11 units for blood glucose 281-320 mg/dL, 15units for blood glucose > 321 mg/dL. Max 90 units daily 30 mL 02/16/20 25 Active predniSONE (DELTASONE) 10 mg tablet Take 20 mg by mouth daily. 03/13/20 25 025 Active tacrolimus (PROGRAF) 1 mg capsule Take 2 mg by mouth 2 times daily. 02/23/20 25 026 Active mycophenolate sodium (MYFORTIC) 360 mg Tablet, Delayed Release (E.C.) Take 360 mg by mouth 2 times daily. 01/23/20 25 026 Active valGANciclovir (VALCYTE) 450 mg tablet Take 900 mg by mouth daily. 01/31/20 25 025 Active ondansetron (ZOFRAN ODT) 4 mg Tablet, Rapid DissolveIndicatio ns:S/P liver transplant (CMS/HCC) Take 1 Tablet (4 mg) by mouth every 8 hours as needed for Nausea/Emesis. Dissolve tablet on top of tongue, then swallow with saliva. 90 Tablet 2 03/14/20 25 Active atorvastatin (LIPITOR) 20 mg tabletIndications :Type 1 diabetes mellitus with diabetic polyneuropathy (CMS/HCC) Take 1 Tablet (20 mg) by mouth daily. 100 Tablet 3 03/14/20 25 Active buprenorphine (BUTRANS) 10 mcg/hour patchIndications: Chronic pain syndrome,Small fiber neuropathy,Neurop athic pain,Peripheral polyneuropathy Apply 1 Patch to skin as directed every 7 days. 4 Patch 3 04/02/20 25 025 Active oxyCODONE (ROXICODONE) 5 mg tabletIndications :Chronic pain syndrome,Small fiber neuropathy Take 1-2 Tablets (5-10 mg) by mouth 2 times daily as needed for Pain. Max Daily Amount: 20 mg 112 Tablet 04/02/20 25 025 Active morphine (MS CONTIN) 15 mg Controlled Release tabletIndications :Chronic pain syndrome,Small fiber neuropathy Take 2 Tablets (30 mg) by mouth every 12 hours. Max Daily Amount: 60 mg 120 Tablet 04/02/20 25 025 Active morphine (MS CONTIN) 15 mg Controlled Release tabletIndications :Chronic pain syndrome,Small fiber neuropathy Take 2 Tablets (30 mg) by mouth every 12 hours. Max Daily Amount: 60 mg 120 Tablet 05/02/20 25 025 Active morphine (MS CONTIN) 15 mg Controlled Release tabletIndications :Chronic pain syndrome,Small fiber neuropathy Take 2 Tablets (30 mg) by mouth every 12 hours. Max Daily Amount: 60 mg 120 Tablet 06/01/20 25 025 Active oxyCODONE (ROXICODONE) 5 mg tabletIndications :Chronic pain syndrome,Small fiber neuropathy Take 1-2 Tablets (5-10 mg) by mouth 2 times daily as needed for Pain. Max Daily Amount: 20 mg 112 Tablet 05/02/20 25 025 Active oxyCODONE (ROXICODONE) 5 mg tabletIndications :Chronic pain syndrome,Small fiber neuropathy Take 1-2 Tablets (5-10 mg) by mouth 2 times daily as needed for Pain. Max Daily Amount: 20 mg 112 Tablet 06/01/20 25 025 Active buprenorphine (BUTRANS) 10 mcg/hour patchIndications: Chronic pain syndrome,Small fiber neuropathy,Neurop athic pain,Peripheral polyneuropathy Apply 1 Patch to skin as directed every 7 days. 4 Patch 2 01/31/20 25 025 Discontin ued(Reord er) morphine (MS CONTIN) 15 mg Controlled Release tabletIndications :Chronic pain syndrome,Small fiber neuropathy Take 2 Tablets (30 mg) by mouth every 12 hours. Max Daily Amount: 60 mg 120 Tablet 02/29/20 25 025 Discontin ued(Reord er) oxyCODONE (ROXICODONE) 5 mg tabletIndications :Chronic pain syndrome,Small fiber neuropathy Take 1-2 Tablets (5-10 mg) by mouth 2 times daily as needed for Pain. Max Daily Amount: 20 mg 112 Tablet 02/29/20 25 025 Discontin ued(Reord er) Active Problems Problem Noted Date Diagnosed Date Opioid contract exists 04/02/2025 Family history of exposure to Agent [place] 12/21 Immunosuppression 03/14/2024 Anemia 03/02/2024 Iron deficiency anemia 02/28/2024 History of biliary duct stent placement 02/22/20 24 S/P liver transplant 01/25/2024 Hepatocellular carcinoma 12/24/2022 Malfunction of intrathecal infusion pump 023 End of battery life of intrathecal infusion pump 10/13/2022 Cataract 07/30/2022 Sleep apnea 07/30/2022 Fibromyalgia 07/30/2022 Chronic respiratory failure with hypoxia 021 Impaired mobility 06/05/2021 Dependence on other enabling machines and device s 06/05/2021 Post-acute COVID-19 syndrome 05/02/2021 H/O pneumonia due to Pseudomonas 05/02/2021 Anxiety 05/02/2021 Debility 05/02/2021 HTN (hypertension), benign 05/02/2021 Bilateral leg edema 02/26/2021 Muscle cramping 10/29/2020 Severe obesity (BMI 35.0-39.9) with comorbidity 06/16/2020 Type 1 diabetes mellitus with neurological compl ication 06/16/2020 Presence of intrathecal pump 07/11/2019 Neuropathic pain 07/11/2019 Peripheral polyneuropathy 07/11/2019 Chronic pain syndrome 07/11/2019 Small fiber neuropathy 07/11/2019 Depression 01/01/2014 Asthma Resolved Problems Problem Noted Date Diagnosed Date Resolved Date Respiratory failure 05/02/2021 08/11/20 Acute foot pain, right 03/27/202003/14 Sprain of foot, right, initial encounter 03/27/2020 06/12/2021 Encounters Date Type Department Care Team Description 04/22/2025 Orders Only [facility] Medicine [place] [address] [phone] En Dowell DO S/P liver transplant ([facility]) 04/17/2025 External Device Data STL ABSTRACTION Provider, Abstract 04/15/2025 Orders Only [facility] [address] [phone] En Dowell DO S/P liver transplant ([facility]) 04/08/2025 Orders Only [facility] [address] [phone] En Dowell DO S/P liver transplant ([facility]) 04/03/2025 External Device Data STL ABSTRACTION Provider, Abstract 04/02/2025 3:30 PM CDT Office Visit [facility] [address] [place] [address] Tristin Estrella MD Chronic pain syndrome (Primary Dx); Small fiber neuropathy; Neuropathic pain; Peripheral polyneuropathy; Opioid contract exists 04/01/2025 Orders Only [facility] Medicine [place] [address] [phone] En Dowell DO S/P liver transplant (CMS/HCC) 03/31/2025 Results Follow-Up [facility] Emergency Medicine [address] [place] [phone] En Dowell DO TACROLIMUS LEVEL, GGT, COMPREHENSIVE METABOLIC PANEL, Additional followed-up results: 2 03/27/2025 Results Follow-Up [address] [phone] En Dowell DO HEMOGLOBIN A1C 03/26/2025 1:20 PM CDT Procedure visit [address] [phone] 03/25/[address] [facility] Karen [address] [phone] En Dowell DO S/P liver transplant (CMS/HCC) 03/18/2025 Orders Only [facility] [address] [phone] En Dowell DO S/P liver transplant (CMS/HCC) 03/14/2025 9:20 AM CDT Office Visit [address] [phone] En Dowell DO Type 1 diabetes mellitus with diabetic polyneuropathy (CMS/HCC) (Primary Dx); Breast cancer screening by mammogram; Screening mammogram, encounter for; Moderate major depression (CMS/HCC); Severe obesity (BMI 35.0-39.9) with comorbidity (CMS/HCC); S/P liver transplant (CMS/HCC) 03/11/2025 Results Follow-Up [address] [phone] Cassidy Jarrell LPN TACROLIMUS LEVEL, CBC WITH DIFFERENTIAL, GGT, Additional followed-up results: 2 03/11/[address] [facility] Karen [address] [phone] En Dowell DO S/P liver transplant (CMS/HCC) 03/07/[address] [phone] En Dowell DO Provider Call 03/06/2025 10:40 AM CDT Procedure visit [address] [phone] 03/04/2025 Orders Only [facility] Medicine [place] [address] [phone] En Dowell DO S/P liver transplant ([facility]/HCC) 02/28/2025 1:00 PM CDT Procedure visit [address] [phone] 02/25/2025 Refill [facility] [address] [place] [phone] Tristin Estrella MD Chronic pain syndrome; Small fiber neuropathy 02/25/2025 Orders Only [facility] Medicine [place] [address] [phone] En Dowell DO S/P liver transplant ([facility]/HCC) 02/20/2025 Results Follow-Up [address] [phone] En Dowell DO GGT, COMPREHENSIVE METABOLIC PANEL, CBC WITH DIFFERENTIAL 02/19/2025 10:20 AM CDT Procedure visit [address] [phone] 02/18/2025 Orders Only [facility] Medicine [place] [address] [phone] En Dowell DO S/P liver transplant ([facility]/HCC) 02/15/[address] [place] [address] En Dowell DO Medication Review 02/13/[address] [phone] En Dowell DO Provider Call 02/12/2025 9:20 AM CDT Procedure visit [address] [phone] 02/12/[address] [phone] En Dowell DO 02/12/[address] [phone] En Dowell DO Type 1 diabetes mellitus with diabetic polyneuropathy ([facility]/HCC) 02/12/[address] [phone] En Dowell DO Type 1 diabetes mellitus with diabetic polyneuropathy ([facility]/HCC) 02/11/2025 Orders Only [facility] Medicine [place] [address] [place] [phone] En Dowell DO S/P liver transplant ([facility]/HCC) 02/04/2025 Orders Only [facility] Medicine [facility] [address] [phone] En Dowell DO S/P liver transplant ([facility]/HCC) 01/30/2025 1:45 PM CDT Office Visit [facility] [address] [place] [phone] Tristin Estrella MD Chronic pain syndrome (Primary Dx); Small fiber neuropathy; Neuropathic pain; Peripheral polyneuropathy 01/29/2025 Refill [facility] [address] [place] [phone] Tristin Estrella MD Chronic pain syndrome; Small fiber neuropathy 01/29/2025 Telephone [facility] [address] [place] [phone] Tristin Estrella MD Medication Question 01/29/2025 Orders Only [facility] [address] [place] [phone] Tristin Estrella MD Small fiber neuropathy (Primary Dx); Chronic pain syndrome 01/28/2025 Results Follow-Up [facility] [address] [phone] En Dowell DO CBC WITH DIFFERENTIAL, COMPREHENSIVE METABOLIC PANEL, CMV BY PCR, GGT 01/28/2025 Refill [facility] [address] [phone] En Dowell DO Chronic pain syndrome (Primary Dx); Muscle cramping 01/28/[address] [facility] Karen [address] [phone] En Dowell DO S/P liver transplant ([facility]/HCC) 01/25/2025 9:40 AM CDT Procedure visit [facility] [address] [phone] S/P liver transplant (CMS/HCC) (Primary Dx) 01/21/[address] [facility] Karen [address] [phone] En Dowell DO S/P liver transplant ([facility]/HCC) from Last 3 Months Immunizations Immunization Administration Dates Next Due (ADACEL/BOOSTRIX)(10 YR UP) TDAP VACCINE, 0.5ML, IM 06/09/2023 Family History Medical History Relation Name Comments Diabetes Brother Jocko Heart Disease Brother Jocko Hypertension Brother Jocko Cancer Father Bill Liver, small ce ll lung Cancer - Other Father Ian SMALL CELL MAYKEL NG CANCER/LIVER CANCER Diabetes Father Ian Heart Disease Father Ian Hypertension Father Ian Breast Cancer Maternal Aunt 1 BREAST CANC ER Cancer Maternal Aunt 2 Grisel Breast Cancer Maternal Grandfather Alejandro Throat cancer Cancer - Other Maternal Grandfather Alejandro THROA T & LUNG CANCER 60'S Hypertension Maternal Grandfather Alejandro Cancer Maternal Grandmother Patti Throat cancer Cancer - Other Maternal Grandmother Patti THROA T CANCER 60'S Heart Disease Maternal Grandmother Patti Hypertension Maternal Grandmother Patti Cancer Mother Alison Lung, hotchkins Cancer - Other Mother Alison LEMOSEKINS LYM PH NODES Heart Disease Mother Alison Hypertension Mother Alison Inflammatory Bowel Disease Mother Alison Cancer Paternal Grandfather Cancer - Other Paternal Grandfather CNACE R TYPE UNKNOWN 70'S Diabetes Paternal Grandfather Hypertension Paternal Grandfather Cancer Paternal Grandmother Lexie ??? Cancer - Other Paternal Grandmother Lexie BRAIN CANCER 70'S Hypertension Paternal Grandmother Lexie Cancer - Other Paternal Uncle 1 THEY DO N OT KNOW WHAT KIND OF CANCER Cancer Paternal Uncle 2 Silvio All over Hypertension Sister 1 Heart Disease Sister 2 Samantha Now pace maker Hypertension Sister 2 Samantha Melanoma Neg Hx Ovarian Cancer Neg Hx Uterine or Endometrial Cance r, Not Including Cervical Neg Hx Relation Name Status Comments Brother Pam Father Ian Maternal Aunt 1 Alive Maternal Aunt 2 Grisel Alive Maternal Grandfather Alejandro Maternal Grandmother Patti Mother Alison Other Alive Paternal Grandfather Paternal Grandmother Lexie Paternal Uncle 1 Alive Paternal Uncle 2 Silvio Alive Sister 1 Sister 2 Samantha Social History Tobacco Use Types Packs/Day Years Used Date Smoking Tobacco: Former Cigarettes Q uit: 08/29/2008 Passive Smoke Exposure: Never Smokeless Tobacco: Never Tobacco Cessation:Counseling Given: No Alcohol Use Standard Drinks/Week Comments Not Currently 0 (1 standard drink = 0.6 oz pur e alcohol) Comments No Sex and Gender Information Value Date Recorded Sex Assigned at Not on file Legal Sex Female 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 Gender Identity Not on file Sexual Orientation Not on file Last Filed Vital Signs Vital Sign Reading Time Taken Comments Blood Pressure 146/90 04/02/2025 3:08 PM CDT Pulse 86 04/02/2025 3:08 PM CDT Temperature 36.3 C (97.4 F) 03/14/2025 9:26 AM CDT Respiratory Rate 16 03/14/2025 9:26 AM CDT Oxygen Saturation 93% 04/02/2025 3:08 PM CDT Inhaled Oxygen Concentration - - Weight 113.4 kg (250 lb) 04/02/2025 3:08 PM CDT Height 177.8 cm (5' 10 ) 04/02/2025 3:08 PM CDT Body Mass Index 35.87 04/02/2025 3:08 PM CDT Plan of Treatment Upcoming Encounters Date Type Department Care Team (Late st Contact Info) Description 06/14/2025 2:00 PM CDT Office Visit [facility] [place] [address] [place] [phone] En Dowell DO [address] [place] [phone] 07/01/2025 9:00 AM LICENSED OCCUPATIONAL THERAPY ASSISTANT Office Visit [facility] [address] [place] [phone] Tristin Estrella MD [address] [place] [phone] Health Maintenance Due Date Last Done Comments HEPATITIS B VACCINES (1 of 3 - 19+ 3-dose series) 1999 HPV VACCINES (1 - Risk 3-dos e SCDM series) 2007 DIABETES ANNUAL RETINAL EXAM 09/03/2023 09/03/2022 BREAST CANCER SCREENING 01/29/2024 01/28/2023 DIABETES ANNUAL FOOT EXAM 03/08/2025 03/08/2024, 09/2021 INFLUENZA VACCINE (#1) 2025 , 10/03/2023, 07/30/2022, Additional history exists DIABETES: A1C (Auto Order) 06/15/202503/15, 11/27/2024, 08/28/2024, Additional history exists DIABETES HBA1C Q 6 MONTHS 09/15/20252024, 11/27/2024, 08/28/2024, Additional history exists Preventative Visit-Managed Medicaid 11/15/2025 11/14/2024, 05/24/2023, 07/30/2022 LDL CHOLESTEROL ANNUAL 11/27/2025 , 07/30/2022, 10/15/2021, Additional history exists DIABETES MICROALBUMIN ANNUAL SCREEN 12/12/2025 12/12/2024, 10/03/2023, 07/30/2022 PAP SMEAR 05/30/2026 05/30/2023, 05/24/2023 CERVICAL CANCER SCREENING 05/30/2028 HPV/Cotest (21-29) 05/30/2028 05/30/2023, 05/24/2023 HPV/Cotest (30-65) 05/30/2028 05/30/2023, 05/24/2023 DTAP/TDAP/TD VACCINES (2 - T d or Tdap) 06/09/2033 06/09/2023 Medical Devices Implanted Type Area Rip Saw Operator Device Identifier Shelf Expiration Date Model / Serial / Lot Cath It Ascenda 114.3cm 8780 - Sna Implanted:Qty: 1 on 10/13/2022 by Tristin Estrella MD at [facility] Catheter N/A: Back [employer]- NEUROLOGIC TECH 06/17/2024 8780 / NA / [id number] Pump Synchromed Ii 40ml 8637-40 - [id number] Implanted:Qty: 1 on 10/13/2022 by Tristin Estrella MD at [facility] Other Left: Abdomen [employer]- NEUROLOGIC TECH 02/24/2024 8637-40 / [id number] / NA Description:mri conditional Explanted Type Area Rip Saw Operator Device Identifier Shelf Expiration Date Model / Serial / Lot Prometra Programmable Pain Pump Explanted:Qty: 1 on 10/13/2022 by Tristin Estrella MD at [facility] N/A: Abdomen NA / [id number] / NA Description:NO ADDITIONAL IN FO. Prometra Catheter Lead Explanted:Qty: 1 on 10/13/2022 by Tristin Estrella MD at [facility] N/A: Abdomen NA / NA / NA Description:NO ADDITIONAL IN FO. Procedures Procedure Name Priority Date/Time Associated Diagnosis Comments CMV BY PCR Stat 04/18/2025 10:34 AM CDT COMPREHENSIVE METABOLIC PANEL Stat 04/18/2025 10:34 AM CDT GGT Stat 04/18/2025 10:34 AM CDT CBC WITH DIFFERENTIAL Stat 04/18/2025 10:34 AM CDT TACROLIMUS LEVEL Stat 04/18/2025 10:3 4 AM CDT S/P liver transplant (CMS/HCC) CMV BY PCR Stat 03/26/2025 12:49 PM CDT CBC WITH DIFFERENTIAL Stat 03/26/2025 12:49 PM CDT COMPREHENSIVE METABOLIC PANEL Stat 03/26/2025 12:49 PM CDT GGT Stat 03/26/2025 12:49 PM CDT TACROLIMUS LEVEL Stat 03/26/2025 12:4 9 PM CDT S/P liver transplant (CMS/HCC) HEMOGLOBIN A1C Routine 03/15/2025 12:00 PM CDT Type 1 diabetes mellitus with diabetic polyneuropathy (CMS/HCC) CMV BY PCR Stat 03/15/2025 11:58 AM CDT COMPREHENSIVE METABOLIC PANEL Stat 03/15/2025 11:58 AM CDT GGT Stat 03/15/2025 11:58 AM CDT CBC WITH DIFFERENTIAL Stat 03/15/2025 11:58 AM CDT TACROLIMUS LEVEL Stat 03/15/2025 11:5 8 AM CDT S/P liver transplant (CMS/HCC) CMV BY PCR Stat 03/06/2025 11:49 AM CDT COMPREHENSIVE METABOLIC PANEL Stat 03/06/2025 11:49 AM CDT GGT Stat 03/06/2025 11:49 AM CDT CBC WITH DIFFERENTIAL Stat 03/06/2025 11:49 AM CDT TACROLIMUS LEVEL Stat 03/06/2025 11:4 9 AM CDT S/P liver transplant (CMS/HCC) CMV BY PCR Stat 02/28/2025 12:12 PM CDT COMPREHENSIVE METABOLIC PANEL Stat 02/28/2025 12:12 PM CDT GGT Stat 02/28/2025 12:12 PM CDT CBC WITH DIFFERENTIAL Stat 02/28/2025 12:12 PM CDT TACROLIMUS LEVEL Stat 02/28/2025 12:1 2 PM CDT S/P liver transplant (CMS/HCC) CMV BY PCR Stat 02/19/2025 9:41 AM CDT CBC WITH DIFFERENTIAL Stat 02/19/2025 9:41 AM CDT COMPREHENSIVE METABOLIC PANEL Stat 02/19/2025 9:41 AM CDT GGT Stat 02/19/2025 9:41 AM CDT TACROLIMUS LEVEL Stat 02/19/2025 9:41 AM CDT S/P liver transplant (CMS/HCC) CMV BY PCR Stat 02/12/2025 9:22 AM CDT CBC WITH DIFFERENTIAL Stat 02/12/2025 9:22 AM CDT COMPREHENSIVE METABOLIC PANEL Stat 02/12/2025 9:22 AM CDT GGT Stat 02/12/2025 9:22 AM CDT TACROLIMUS LEVEL Stat 02/12/2025 9:22 AM CDT S/P liver transplant (CMS/HCC) TACROLIMUS LEVEL Stat 01/25/2025 9:43 AM CDT S/P liver transplant (CMS/HCC) GGT Routine 01/25/2025 9:41 AM CDT S/P liver transplant (CMS/HCC) CMV BY PCR Routine 01/25/2025 9:41 AM CDT S/P liver transplant (CMS/HCC) COMPREHENSIVE METABOLIC PANEL Routine 01/25/2025 9:41 AM CDT S/P liver transplant (CMS/HCC) CBC WITH DIFFERENTIAL Routine 01/25/2025 9:41 AM CDT S/P liver transplant (CMS/HCC) MICROALBUMIN/CREATINI NE RATIO, RANDOM UR Routine 12/12/2024 9:37 AM CDT Type 1 diabetes mellitus with diabetic polyneuropathy (CMS/HCC) LIPID PANEL Routine 11/27/2024 1:46 PM CDT Type 1 diabetes mellitus with diabetic polyneuropathy (CMS/HCC) CERV/VAG CYTO AGE BASED SCREEN PAP W CT/NG Routine 05/30/2023 4:09 PM CDT Well woman exam with routine gynecological exam MAMMO 3D VIGNESH SCREEN BILAT W OR WO CAD Routine 01/28/2023 2:55 PM CDT Screening mammogram, encounter for IA BILAT DIL RETINAL EXAM Routine 09/03/2022 from Last 3 Months or Most Recently Relevant to Health Maintenance Results * CMV BY PCR (04/18/2025 10:34 AM CDT) Only the most recent of8 resultswithin the time period is included. CYTOMEGALOVIRUS, QUANT IU/ML Not Detected Not Detected IU/mL [facility] CYTOMEGALOVIRUS BY PCR, QUANT LOG IU/ML Not Detected Not Detected Log IU/mL [facility] Comment: (Note) For additional information, please refer to http://education.Media Radar/faq/CMVandEBVPCR (This link is being provided for informational/educational purposes only.) [facility] [address] [facility] [address] [facility] [address] Myles Llanos MD, PhD Test Performed at: [facility] [address] [address], [address] [place] [address] Myles Llanos MD,PhD 04/18/2025 10:3 4 AM CDT 04/18/2025 10:34 AM CDT [facility] [employer] SINGER CHEMISTRY ORDERABLES Final Re sult [facility] [phone] [facility] [address] [address], [address] [place] [address] * TACROLIMUS LEVEL (04/18/2025 10:34 AM CDT) Only the most recent of8 resultswithin the time period is included. Pathologist [facility] TACROLIMUS LEVEL 8.1 mcg/L [facility] Comment: No definitive therapeutic or toxic ranges have been established. Optimal blood drug levels are influenced by type of transplant, patient response, time post- transplant, co-administration of other drugs, and drug formulation. The following trough range is a suggested guideline: 5.0-20.0 mcg/L. Test Performed at: [facility] [address] [place] [address] Olu Atkins MD Blood 04/18/2025 10:3 4 AM CDT 04/18/2025 10:34 AM CDT [facility] [employer] SINGER CHEMISTRY ORDERABLES Final Re sult [facility] [phone] [facility] [address] [address] * (ABNORMAL) CBC WITH DIFFERENTIAL (04/18/2025 10:34 AM CDT) Only the most recent of8 resultswithin the time period is included. WBC 7.7 3.8 - 10.8 Thousand/u L [...] [facility] Comment: Test Performed at: [facility] [address] [place] [address] Olu Atkins MD 04/18/2025 10:3 4 AM CDT 04/18/2025 10:34 AM CDT [facility] HEM[facility] ORDER[facility]LES Final R esult Performing Organization Address City/[facility]/ZIP Co de Phone Number [facility] [phone] [facility] [address] [place] [address] * (ABNORMAL) GGT (04/18/2025 10:34 AM CDT) Only the most recent of8 resultswithin the time period is included. GGT 163(H) 3 - 55 U/L [facility] Comment: Test Performed at: [facility] [address] [place] [address], [place] [address] Olu Atkins MD 04/18/2025 10:3 4 AM CDT 04/18/2025 10:34 AM CDT [facility] CHEMISTRY ORDERAB[facility] Final Re sult Performing Organization Address [facility] Co de Phone Number [facility] [phone] [facility] [address] [place] [address] * (ABNORMAL) COMPREHENSIVE METABOLIC PANEL (04/18/2025 10:34 AM CDT) Only the most recent of8 resultswithin the time period is included. GLUCOSE 165(H) 65 - 99 mg/dL [facility] [...] [facility] Comment: Test Performed at: [facility] [address] Olu Atkins MD 04/18/2025 10:3 4 AM CDT 04/18/2025 10:34 AM CDT us En Dowell DO CHEMISTRY ORDERABLES Final Re sult [facility] [phone] [facility] [address] * (ABNORMAL) HEMOGLOBIN A1C (03/15/2025 12:00 PM CDT) HEMOGLOBIN A1C 8.9(H) <5.7 % [facility] Comment: For someone without known diabetes, a hemoglobin A1c value of 6.5% or greater indicates that they may have diabetes and this should be confirmed with a follow-up test. For someone with known diabetes, a value <7% indicates that their diabetes is well controlled and a value greater than or equal to 7% indicates suboptimal control. A1c targets should be individualized based on duration of diabetes, age, comorbid conditions, and other considerations. Currently, no consensus exists regarding use of hemoglobin A1c for diagnosis of diabetes for children. ESTIMATED AVERAGE GLUCOSE (MG/DL) 209 mg/dL [facility] ESTIMATED AVERAGE GLUCOSE (MMOL/L) 11.6 mmol/L [facility] Comment: Test Performed at: [facility] [address] [place] [address] Olu Atkins MD Blood 03/15/2025 12:0 0 PM CDT 03/15/2025 12:00 PM CDT En Dowell CHEMISTRY ORDERABLES Final Re sult [facility] [phone] [facility] [address] [place] [address] * MICROALBUMIN/CREATININE RATIO, RANDOM UR (12/12/2024 9:37 AM CDT) CREATININE, URINE 77 20 - 275 mg/dL [facility] ALBUMIN, URINE 1.6 See Note: mg/dL [facility] Comment: Reference Range: Reference Range Not established ALB/CREAT RATIO, URINE 21 <30 mg/g creat [facility] Comment: The ADA defines abnormalities in albumin excretion as follows: Albuminuria Category Result (mg/g creatinine) Normal to Mildly increased <30 Moderately increased 30-299 Severely increased > OR = 300 The ADA recommends that at least two of three specimens collected within a 3-6 month period be abnormal before considering a patient to be within a diagnostic category. Test Performed at: [facility] [address] [address] Olu Atkins MD Urine URINE SPECIMEN OBTAINED BY CLEAN CATCH PROCEDURE / Unknown 12/12/2024 9:37 AM CDT 12/12/2024 9:38 AM CDT En Dowell DO URINE ORDERABLES Final Result [facility] [phone] [facility] [address] [facility] [place] [address] * (ABNORMAL) LIPID PANEL (11/27/2024 1:46 PM CDT) CHOLESTEROL 205(H) <200 mg/dL [facility] HDL 43(L) > OR = 50 mg/dL [facility] TRIGLYCERIDE 302(H) <150 mg/dL [facility] Comment: If a non-fasting specimen was collected, consider repeat triglyceride testing on a fasting specimen if clinically indicated. Atilio et al. J. of Clin. Lipidol. 2015;9:129-169. LDL CALCULATED 119(H) mg/dL (calc) [facility] Comment: Reference range: <100 Desirable range <100 mg/dL for primary prevention; <70 mg/dL for patients with CHD or diabetic patients with > or = 2 CHD risk factors. LDL-C is now calculated using the Pineda-Arora calculation, which is a validated novel method providing better accuracy than the Friedewald equation in the estimation of LDL-C. Pineda SS et al. ELVA. 2013;310(19): 8956-3119 (http://education.Forrst/faq/LXO009) CHOL/HDL RATIO 4.8 <5.0 (calc) [facility] NON-HDL CHOLESTEROL 162(H) <130 mg/dL (calc) [facility] Comment: For patients with diabetes plus 1 major ASCVD risk factor, treating to a non-HDL-C goal of <100 mg/dL (LDL-C of <70 mg/dL) is considered a therapeutic option. Test Performed at: [facility] [address] [place] [address] Olu Atkins MD Blood 11/27/2024 1:46 PM CDT 11/27/2024 1:46 PM CDT us En Dowell CHEMISTRY ORDERABLES Final Re sult [facility] [phone] [facility] [address] [place] [address] * CERV/VAG CYTO AGE BASED SCREEN PAP W CT/NG (05/30/2023 4:09 PM CDT) COMMENT (PAP): [facility] Comment: This order for age-based cervical cancer and STI screening follows ACOG guidelines(PB 168, 140, YVW887). See individual assays for performing site location. CLINICAL INFORMATION [facility] Comment:None given LAST MENSTRUAL PERIOD [facility] [place] Comment:NONE GIVEN PREV PAP: [facility] [place] [facility] Comment:NONE GIVEN PREV BX: [facility] [place] Comment:NONE GIVEN SOURCE [facility] [place] Comment:Endocervix ADEQUACY: [facility] Comment: Specimen processed and examined, but unsatisfactory for evaluation due to an insufficient number of squamous cells. PAP INTERP [facility] Comment: Cytology Results: Unable to provide interpretation due to unsatisfactory specimen adequacy. COMMENT (PAP TEST) [facility] Comment: This Pap test has been evaluated with computer assisted technology. Microscopic features suggestive of lubricant. Lubricant jellies may interfere with slide preparation; their use is not recommended. DEVELOPING MACHINE TENDER: [facility] Comment: ANG, CT(ASCP) CT Screening location: [facility] [place] [address] [address] REVIEW DEVELOPING MACHINE TENDER: Jonathan InnotrieveJavier [place] Comment: LMT, CT(ASCP) CT screening location: [place] [address] [address] [place] [address] [place] Comment: EXPLANATORY NOTE: The Pap is a screening test for cervical cancer. It is not a diagnostic test and is subject to false negative and false positive results. It is most reliable when a satisfactory sample, regularly obtained, is submitted with relevant clinical findings and history, and when the Pap result is evaluated along with historic and current clinical information. HPV E6/E7 Not Detected Not Detected [facility] Comment: Methodology: Script Supervisor-Mediated Amplification This assay detects E6/E7 viral messenger RNA (mRNA) from 14 high-risk HPV types (16,18,31,33,35,39,45,51,52,56,58,59,66,68). Cervical sources are required for HPV testing. If a vaginal source from a patient who has had a total hysterectomy with removal of cervix was submitted, please contact the testing laboratory for alternative testing options. For additional information, please refer to http://Aphria.Media Radar/faq/GBE708s9 (This link if provided for information/ educational purposes only.) C TRAC RNA NOT DETECTED NOT DETECTED [facility] N.GONORRHOEAE RNA, TMA NOT DETECTED NOT DETECTED [facility] COMMENT INFECTIOUS DISEASE [facility] Comment: The analytical performance characteristics of this assay, when used to test SurePath(TM) specimens have been determined by [facility]. The modifications have not been cleared or approved by the FDA. This assay has been validated pursuant to the CLIA regulations and is used for clinical purposes. For additional information, please refer to https://Aphria.Media Radar/faq/DGI902 (This link is being provided for information/ educational purposes only.) Test Performed at: [facility] [address] [place] [address] Max Schuler PhD SL Genital SWAB OF ENDOCERVIX / Unknown 05/30/2023 4:09 PM CDT 05/31/2023 3:47 AM CDT Barbara FARIAS PATHOLOGY/CYTOLOGY ORDERA BLES Final Result [facility] [phone] [facility] [address] [place] [address] * MAMMO SCRN BILAT 3D VIGNESH W OR WO CAD (01/28/2023 2:55 PM CDT) Anatomical Region Laterality Modality Breast Bilateral Mammography Impressions 02/02/2023 11:21 AM CDT : No mammographic evidence of malignancy. BI-RADS ASSESSMENT: 1 - Negative RECOMMENDATION: Routine annual screening mammography. Narrative 02/02/2023 11:21 AM CDT EXAM: MAMMO SCRN BILAT 3D VIGNESH W OR WO CAD INDICATION: Screening COMPARISON: No comparisons were made when reading this study. BREAST COMPOSITION: The breasts are almost entirely fatty. FINDINGS: RIGHT BREAST: There are no suspicious masses, calcifications, or areas of architectural distortion. LEFT BREAST: There are no suspicious masses, calcifications, or areas of architectural distortion. us En Dowell DO MAMMO ORDERABLES Final Result * IA BILAT DIL RETINAL EXAM (09/03/2022) us Santhosh Dowell MD [place] - MEDICAL SERVICES Final Res ult Performing Organization Address City/State/[facility] Co de Phone Number [facility] CLIA# [id number] [address] [place] [phone] from Last 3 Months or Most Recently Relevant to Health Maintenance Insurance MEDICAID [place] Advance Directives For more information, please contact: [phone] * Full Code (Latest Code Status on File) Date Activated Date Inactivated Comments 05/03/2021 12:01 AM 06/05/2021 6:59 PM Care Teams Combatant Swimmer Relationship Specialty Start Date End Date En Dowell DO [address] [place] [address] PCP - General Family Practice 06/16/20
--- OUTSIDE RECORDS SUMMARY | 2025-04-22 10:19 | XMS_ITS ---
Author Organization [facility] Address [address] [place] [address] Care Team Providers Care Retail Special Event Associate Name Role Phone En Dowell Primary Care Provider [phone] Active Problems Problem Noted Date Diagnosed Date Opioid contract exists 04/02/2025 Family history of exposure to Agent [place] 12/21 Immunosuppression 03/14/2024 Anemia 03/02/2024 Iron deficiency [...] Small fiber neuropathy 07/11/2019 Depression 01/01/2014 Asthma Current Treatment and Therapy Plans No current plan information found. Past Treatment and Therapy Plans Lifetime Dose Tracking * Chemical Lifetime Dose Automatic Entry Manual Entr y Effective Dose 17.2 mSv 17.2 mSv 0 mSv Total DLP 1,689.4 DLP 1,689.4 DLP 0 DLP CTDIvol Max 54.4 mGy 54.4 mGy 0 mGy CTDIvol Min 54.4 mGy 54.4 mGy 0 mGy Resolved Problems Problem Noted Date Diagnosed Date Resolved Date Respiratory failure 05/02/2021 08/11/20 22 Acute foot pain, right 03/27/202003/14 Sprain of foot, right, initial encounter 03/27/2020 06/12/2021
--- OUTSIDE RECORDS SUMMARY | 2025-04-22 10:19 | XMS_ITS | Encounter Summary ---
Author Organization [facility] Address [address] [place] [address] Care Team Providers Care Marketing Education Teacher Name Role Phone En Dowell DO Primary Care Provider [phone] Encounter Details Date Type Department Care Team (Late st Contact Info) Description 04/17/2025 External Device Data [place] ABSTRACTION Provider, Abstract NO ADDRESS ON FILE Social History Tobacco Use Types Packs/Day Years Used Date Smoking Tobacco: Former Cigarettes Q uit: 08/29/2008 Passive Smoke Exposure: Never Smokeless Tobacco: Never Alcohol Use Standard Drinks/Week Comments Not Currently 0 (1 standard drink = 0.6 oz pur e alcohol) Comments No Sex and Gender Information Value Date Recorded Sex Assigned at Not on file Legal Sex Female 9:41 PM [employer] Gender Identity Not on file Sexual Orientation Not on file documented as of this encounter Plan of Treatment Upcoming Encounters Date Type Department Care Team (Late st Contact Info) Description 06/14/2025 2:00 PM CDT Office Visit [facility] Family [facility] [place] [address] [phone] En Dowell DO [address] [address] 07/01/2025 9:00 AM [employer] CLE[employer] Office Visit [facility] [address] [place] [address] Tristin Estrella MD [address] [place] [address] documented as of this encounter Visit Diagnoses Not on filedocumented in this encounter Care Teams Marketing Education Teacher Relationship Specialty Start Date End Date En Dowell DO [address] [place] [address] PCP - General Family Practice 06/16/20 documented as of this encounter
[2025-04-22 10:24] VITALS: BP 184/99; PULSE 78; TEMP 36.7; O2SAT 99
[2025-04-22 10:41] LABS: Hematocrit 47.5 % (36-47); Hemoglobin 15.80 g/dL (11.27-16.99); Mean Corpuscular HGB Conc 33.3 g/dL (30-55); Mean Corpuscular Hemoglobin 28.5 pg (27-33); Mean Corpuscular Volume 85.7 fl (85-98); Nucleated Red Blood Cells % 0 %; Platelet Count 254 10^3/cmm (157-399); Red Blood Count 5.54 10^6/uL (3.85-5.65); White Blood Count 12.03 10^3/uL (3.29-11.43)
[2025-04-22 10:56] LABS: HCG, Serum Qual Negative (Negative)
[2025-04-22 10:57] LABS: Alanine Aminotransferase 33 U/L (0-33); Albumin Level 4.5 g/dL (3.5-5.2); Alkaline Phosphatase 106 U/L (35-105); Anion Gap 18.9 (5-19); Aspartate Amino Transferase 18 U/L (0-32); Blood Urea Nitrogen 11 mg/dL (6-20); Calcium 9.7 mg/dL (8.5-10.5); Carbon Dioxide 24 mmol/L (22-29); Chloride 99 mmol/L (98-107); Creatinine Clr Calc Pharmacy 139.9816; Globulin 3.6 g/dL (1.3-4.6); Glucose 198 mg/dL (65-115); Lipase 24 U/L (13-60); Osmolality Calculated 291 mOsm/kg (285-295); Potassium 3.9 mmol/L (3.5-5.1); Sodium 138 mmol/L (136-145); Total Protein 8.1 g/dL (6.6-8.7)
--- NOTE | 2025-04-22 11:43 | W.ED.NAVMDI ---
HPI - Nausea/Vomiting/Diarrhea General: Chief complaint: Nausea/Vomiting/Diarrhea Stated complaint: n/v Time Seen by Provider: 04/22/25 11:43 History of Present Illness: This is a 44-year-old female with a history of liver transplantation, chronic immunosuppression on tacrolimus and obesity, depression, chronic pain syndrome and chronic nausea and diabetes who presents to the emergency room with nausea and vomiting. She has had multiple episodes of this in the past. She is having no abdominal pain today. Also no diarrhea. No fevers. She has been taking her medications as instructed. She has history of episodes of vomiting that have not been explained. She has had visits with gastroenterology and multiple endoscopies in the past. She is afebrile but says she has felt like she might be working on a fever. Related Data Home Medications ?Medication ?Instructions ?Recorded ?Confirmed aspirin 81 mg tablet,delayed 81 mg PO BEDTIME 09/11/19 09/24/24 release Bupivacaine 10.66mg/Ml See Rx Instructions .Route .COMPLEX 03/23/21 09/24/24 acetaminophen 500 mg tablet 1,000 mg PO PRN 03/23/21 09/24/24 (Tylenol Extra Strength) atorvastatin 20 mg tablet 20 mg PO BEDTIME 03/23/21 09/24/24 cetirizine 10 mg tablet 10 mg PO DAILY 03/23/21 09/24/24 furosemide 20 mg tablet 20 mg PO DAILY PRN Edema 03/23/21 09/24/24 Held on 09/29/24. Instructions: Resume on 10/08/24. omeprazole 20 mg capsule,delayed 40 mg PO BEDTIME 03/23/21 09/24/24 release polyethylene glycol 3350 17 17 g PO DAILY PRN Constipation 03/23/21 09/24/24 gram/dose oral powder albuterol sulfate 90 mcg/actuation 1 puff inhalation Q6H PRN 09/24/24 09/24/24 aerosol inhaler (Ventolin HFA) Shortness Of Breath Or Wheezing amitriptyline 10 mg tablet 10 mg PO DAILY 09/24/24 09/24/24 atovaquone 750 mg/5 mL oral 360 mg PO DAILY 09/24/24 09/24/24 suspension (Mepron) carvedilol 25 mg tablet 25 mg PO BID 09/24/24 09/24/24 fluticasone 250 mcg-salmeterol 50 1 ea inhalation BID 09/24/24 09/24/24 mcg/dose blistr powdr for inhalation (Advair Diskus) morphine 8 mg/mL intravenous See Rx Instructions .Route 09/24/24 09/24/24 syringe .COMPLEX PRN Pain mycophenolate sodium 360 mg 360 mg PO BID 09/24/24 09/24/24 tablet,delayed release (Myfortic) oxycodone 10 mg tablet,oral ONLY 10 mg PO Q4H PRN Pain 09/24/24 09/24/24 (not feeding tubes) sennosides 8.6 mg-docusate sodium 1 tab-cap PO TID PRN constipation 09/24/24 09/24/24 50 mg tablet tacrolimus 1 mg capsule, 3 mg PO Q12H 09/24/24 09/24/24 immediate-release (Prograf) Held on 09/29/24. Instructions: Resume on 10/01/24. hold until tuesday, recheck tacrolimus level, barness will call you tiotropium bromide 18 mcg capsule 1 cap inhalation QPM 09/24/24 09/24/24 with inhalation device (Spiriva with HandiHaler) valganciclovir 450 mg tablet 450 mg PO DAILY 09/24/24 09/24/24 (Valcyte) Previous Rx's ?Medication ?Instructions ?Recorded blood sugar diagnostic (Blood #100 ea 03/18/20 Glucose Test strips) blood-glucose meter (Blood Glucose #1 ea 03/18/20 Monitoring kit) ferrous gluconate 324 mg (37.5 mg 324 mg PO EVERY OTHER DAY #15 tabs 05/02/21 iron) tablet pen needle, diabetic 31 gauge x ##100 02/12/2211/11 (TechLITE Pen Needle) insulin glargine 100 unit/mL (3 40 unit (0.4 mL) SUBCUT DAILY 30 09/29/24 mL) subcutaneous pen (Lant #15 mL Solostar U-100 Insulin) insulin lispro 100 unit/mL See Rx Instructions .Route 09/29/24 subcutaneous pen .COMPLEX #15 mL ondansetron HCl 8 mg tablet 8 mg PO Q8H PRN Nausea And 09/29/24 Vomiting 7 days #21 tabs ondansetron 8 mg disintegrating 8 mg PO Q6H #14 tabs 10/26/24 tablet promethazine 25 mg rectal 25 mg RI Q6H PRN nausea and 10/26/24 suppository vomiting #12 ea ondansetron 8 mg disintegrating 8 mg PO Q6H #14 tabs 04/22/25 tablet promethazine 25 mg rectal 25 mg RI Q6H PRN nausea and 04/22/25 suppository vomiting #12 ea Allergies Allergy/AdvReac Type Severity Reaction Status Date / Time sulfamethoxazole (From Allergy Unknown Unknown Verified 04/22/25 10:28 Bactrim) trimethoprim (From Bactrim) Allergy Unknown Unknown Verified 04/22/25 10:28 lidocaine Allergy Unknown Verified 04/22/25 10:28 metformin AdvReac Mild diarrhea, Verified 04/22/25 10:28 vomiting Review of Systems Narrative: Constitutional symptoms: Negative except as documented in HPI. Skin symptoms: Negative except as documented in HPI. Eye symptoms: Negative except as documented in HPI. ENMT symptoms: Negative except as documented in HPI. Respiratory symptoms: Negative except as documented in HPI. Cardiovascular symptoms: Negative except as documented in HPI. Gastrointestinal symptoms: Negative except as documented in HPI. Genitourinary symptoms: Negative except as documented in HPI. Musculoskeletal symptoms: Negative except as documented in HPI. Neurologic symptoms: Negative except as documented in HPI. Psychiatric symptoms: Negative except as documented in HPI. Endocrine symptoms: Negative except as documented in HPI. PFSH ED PFSH: Medical History (Updated 04/22/25 @ 14:55 by Melany Rodriguez MD) Pseudomonas pneumonia COVID-19 Morbid obesity with BMI of 45.0-49.9, adult ARDS (adult respiratory distress syndrome) Hyperlipidemia Depression Seasonal allergies Small fiber neuropathy Benign atrial arrhythmia Chronic nausea Related to gastroparesis and diabetes. Essential (primary) hypertension GERD (gastroesophageal reflux disease) Asthma Chronic pain syndrome Fibromyalgia Spinal cord stimulator status PAIN PUMP Surgical History (Updated 10/26/24 @ 00:12 by Melany Rodriguez MD) S/P appendectomy S/P tubal ligation S/P section Family History Other Diabetes Hypertension Social History Smoking and tobacco/nicotine status: never used tobacco/nicotine Alcohol intake: never Substance/Drug Use: never Do you think of yourself as: Straight/Heterosexual Current gender identity: Female Physical Exam Narrative: EXAM NARRATIVE: General: Alert, no acute distress. Skin: Warm, dry. Head: Normocephalic, atraumatic. Neck: Supple, trachea midline. Eye: Extraocular movements are intact. Ears, nose, mouth and throat: mucosa moist. Cardiovascular: Regular, Normal peripheral perfusion. Respiratory: Lungs are clear to auscultation, respirations are non-labored, breath sounds are equal, Symmetrical chest wall expansion. Gastrointestinal: Soft, Nontender, Non distended Musculoskeletal: Normal ROM, no deformity. Neurological: Alert and oriented, No focal neurological deficit observed. Psychiatric: Cooperative, appropriate mood & affect. Course Vital Signs: Vital signs: Vital Signs Temperature 98.0 F 04/22/25 10:24 Pulse Rate 80 04/22/25 14:00 Respiratory Rate 19 H 04/22/25 14:00 Blood Pressure 180/75 04/22/25 14:00 Pulse Oximetry 93 04/22/25 14:00 Oxygen Delivery Me thod Room Air 04/22/25 14:00 MDM - Nausea/Vomiting/Diarrhea Medical Decision Making Medical decision making: Differential diagnosis for this patient with nausea and vomiting including but not limited to and based on the above HPI, review of systems and physical exam: Urinary tract infection. Appendicitis. Cholecystitis. Colitis. small bowel obstruction. crohn's flare. pancreatitis. gastritis. peptic ulcer. cyclic vomiting. Viral illness. Influenza. COVID. Orders placed to evaluate differential diagnosis based on the above differential, HPI and physical exam Lab Review: Laboratory results were reviewed and interpreted by myself the emergency room physician. Mild leukocytosis. No anemia. No renal failure. Liver enzymes are normal. Bilirubin is normal. No signs of rejection. Urinalysis is negative for infection. CT of the abdomen pelvis with contrast: Evidence of prior liver transplant. Possibly some mild gastroenteritis and duodenitis. This was reviewed and interpreted by myself the emergency room physician. I also reviewed the radiology report. I reviewed the patient's medical record. Reexamination: Patient remained stable. No increased work of breathing. No altered mental status. No focal motor deficits. Patient says she is feeling quite a bit better. She is tolerated small amounts of fluids. I offered admission but she says she prefers to try going home and see if she can tolerate fluids at home for the next day or so. We also discussed cyclic vomiting type syndromes and she says that this has been discussed with her with other doctors in the past before. Assessment and plan: Nausea and vomiting Dehydration Status post liver transplant ?2 L normal saline bolus, IV Zofran, then IV Compazine and Benadryl, then another dose of IV Zofran. - Discharged home - Discussed plan with patient. Answered any questions. - Evaluation and treatment of this problem were appropriate in the emergency setting. Lab Data 04/22/25 10:35 04/22/25 10:35 Radiology Impressions Abdomen/Pelvis CT 04/22/25 13:34 IMPRESSION: 1. Evidence of prior liver transplant. 2. Slight atelectasis in the lung bases. 3. Evidence of gastritis and duodenitis with tiny esophageal hiatal hernia. 4. Tubal ligation clips. Prior appendectomy. 5. No evidence of small or large bowel obstruction. 6. Moderate to severe central canal stenosis L4-L5 and L5-S1 with disc osteophyte complexes. This can be followed up with lumbar spine MRI. Laboratory Results WBC 12.03 10^3/uL (3.29-11.43) H 04/22/25 10:35 RBC 5.54 10^6/uL (3.85-5.65) 04/22/25 10:35 Hgb 15.80 g/dL (11.27-16.99) 04/22/25 10:35 Hct 47.5 % (36-47) H 04/22/25 10:35 MCV 85.7 fl (85-98) 04/22/25 10:35 MCH 28.5 pg (27-33) 04/22/25 10:35 MCHC 33.3 g/dL (30-55) 04/22/25 10:35 RDW 16.9 % (12.1-15.1) H 04/22/25 10:35 Plt Count 254 10^3/cmm (157-399) 04/22/25 10:35 MPV 10.1 fL (7.4-10.4) 04/22/25 10:35 Neut % (Auto) 73.6 % 04/22/25 10:35 Lymph % (Auto) 18.0 % 04/22/25 10:35 Garrett % (Auto) 5.2 % 04/22/25 10:35 Eos % (Auto) 1.2 % 04/22/25 10:35 Baso % (Auto) 0.6 % 04/22/25 10:35 Neut # (Auto) 8.86 10^3/uL (1.8-7.7) H 04/22/25 10:35 Lymph # (Auto) 2.2 10^3/uL (0.8-4.8) 04/22/25 10:35 Garrett # (Auto) 0.6 10^3/uL (0.2-0.9) 04/22/25 10:35 Eos # (Auto) 0.2 10^3/uL (0.0-0.8) 04/22/25 10:35 Baso # (Auto) 0.1 10^3/uL (0.0-0.1) 04/22/25 10:35 Nucleated RBC % (auto) 0 % 04/22/25 10:35 Nucleated RBCs # 0.0 /100WBC 04/22/25 10:35 Sodium 138 mmol/L (136-145) 04/22/25 10:35 Potassium 3.9 mmol/L (3.5-5.1) 04/22/25 10:35 Chloride 99 mmol/L (98-107) 04/22/25 10:35 Carbon Dioxide 24 mmol/L (22-29) 04/22/25 10:35 Anion Gap 18.9 (5-19) 04/22/25 10:35 BUN 11 mg/dL (6-20) 04/22/25 10:35 Creatinine 0.7 mg/dL (0.5-0.9) 04/22/25 10:35 GFR Calculation 90.9 mL/min (90-130) 04/22/25 10:35 Glucose 198 mg/dL (65-115) H 04/22/25 10:35 Calculated Osmolality 291 mOsm/kg (285-295) 04/22/25 10:35 Lactic Acid 1.5 mmol/L (0.5-2.2) 04/22/25 10:35 Calcium 9.7 mg/dL (8.5-10.5) 04/22/25 10:35 Total Bilirubin 0.5 mg/dL (0.15-1.2) 04/22/25 10:35 AST 18 U/L (0-32) 04/22/25 10:35 ALT 33 U/L (0-33) 04/22/25 10:35 Alkaline Phosphatase 106 U/L (35-105) H 04/22/25 10:35 C-Reactive Protein 3.0 mg/L (0.0-4.9) 04/22/25 10:35 Total Protein 8.1 g/dL (6.6-8.7) 04/22/25 10:35 Albumin 4.5 g/dL (3.5-5.2) 04/22/25 10:35 Globulin 3.6 g/dL (1.3-4.6) 04/22/25 10:35 Lipase 24 U/L (13-60) 04/22/25 10:35 Procalcitonin 0.03 ng/mL (0-0.5) 04/22/25 10:35 HCG, Qual Negative (Negative) 04/22/25 10:35 Urine Color Yellow (Yellow) 04/22/25 13:05 Urine Appearance Clear (CLEAR) 04/22/25 13:05 Urine pH 8.0 (5-7) A 04/22/25 13:05 Ur Specific [place] 1.012 (1.005-1.030) 04/22/25 13:05 Urine Protein Negative (Negative) 04/22/25 13:05 Urine Glucose (UA) 2+ (Normal) H 04/22/25 13:05 Urine Ketones 1+ (Negative) H 04/22/25 13:05 Urine Blood Negative (Negative) 04/22/25 13:05 Urine Nitrate Negative (Negative) 04/22/25 13:05 Urine Bilirubin Negative (Negative) 04/22/25 13:05 Urine Urobilinogen 0.2 mg/dL (Negative) 04/22/25 13:05 Ur Leukocyte Esterase Negative (Negative) 04/22/25 13:05 Urine RBC 0-2 /hpf (0-2) 04/22/25 13:05 Urine WBC 0-5 /hpf (0-5) 04/22/25 13:05 Ur Squamous Epith Cells 0-5 /hpf (0-5) 04/22/25 13:05 Amorphous Sediment Not Reportable 04/22/25 13:05 Urine Bacteria None seen /hpf (NONE) 04/22/25 13:05 Hyaline Casts 0.40 /lpf 04/22/25 13:05 All radiology interpretation(s) finalized by discharge Discharge Plan Discharge Patient Disposition: Home Clinical Impression: Intractable nausea and vomiting, Dehydration, Chronic nausea Condition: Stable Prescriptions: New promethazine 25 mg suppository 25 mg RI Q6H PRN (Reason: nausea and vomiting) Qty: 12 0RF ondansetron 8 mg tablet,disintegrating 8 mg PO Q6H Qty: 14 0RF Rx Instructions: Take 1/2-1 tab every 6 hours as needed for nausea and vomiting No Action aspirin 81 mg tablet,delayed release (DR/EC) 81 mg PO BEDTIME (DME) blood-glucose meter [Blood Glucose Monitoring] Kit See Rx Instructions .ROUTE .MEDSUPPLY Qty: 1 0RF Rx Instructions: As directed (DME) Blood Glucose Test Strip See Rx Instructions .ROUTE .MEDSUPPLY Qty: 100 1RF Rx Instructions: As directed (DME) pen needle, diabetic [TechLITE Pen Needle] 31 gauge x 3/16 needle See Rx Instructions .ROUTE .COMPLEX Qty: 100 11RF Dose Instruction: USE WITH INSULIN 5 TIMES DAILY Rx Instructions: USE WITH INSULIN 5 TIMES DAILY atorvastatin 20 mg tablet 20 mg PO BEDTIME cetirizine 10 mg tablet 10 mg PO DAILY acetaminophen [Tylenol Extra Strength] 500 mg Tablet 1,000 mg PO PRN furosemide 20 mg tablet 20 mg PO DAILY PRN (Reason: Edema) polyethylene glycol 3350 17 gram/dose powder 17 g PO DAILY PRN (Reason: Constipation) omeprazole 20 mg capsule,delayed release(DR/EC) 40 mg PO BEDTIME Bupivacaine 10.66mg/Ml See Rx Instructions .ROUTE .COMPLEX Rx Instructions: 2.1054 MG OVER A 24 HOUR PERIOD FROM PAIN PUMP ferrous gluconate 324 mg (37.5 mg iron) Tablet 324 mg PO EVERY OTHER DAY Qty: 15 0RF valganciclovir [Valcyte] 450 mg Tablet 450 mg PO DAILY carvedilol 25 mg Tablet 25 mg PO BID Rx Instructions: must administer with a meal/food tacrolimus [Prograf] 1 mg Capsule 3 mg PO Q12H atovaquone [Mepron] 750 mg/5 mL Suspension 360 mg PO DAILY Rx Instructions: must administer with food, preferably a high-fat meal mycophenolate sodium [Myfortic] 360 mg Tablet,Delayed Release (Dr/Ec) 360 mg PO BID fluticasone propion-salmeterol [Advair Diskus] 250-50 mcg/dose blister with device 1 ea INHALATION BID sennosides-docusate sodium 8.6-50 mg Tablet 1 tab-cap PO TID PRN (Reason: constipation ) amitriptyline 10 mg Tablet 10 mg PO DAILY albuterol sulfate [Ventolin HFA] 90 mcg/actuation HFA aerosol inhaler 1 puff INHALATION Q6H PRN (Reason: Shortness Of Breath Or Wheezing) tiotropium bromide [Spiriva with HandiHaler] 18 mcg capsule, w/inhalation device 1 cap INHALATION QPM morphine 8 mg/mL Syringe See Rx Instructions .ROUTE .COMPLEX PRN (Reason: Pain) Rx Instructions: 1.58 MG OVER A 24 HOUR PERIOD FROM PAIN PUMP oxycodone 10 mg Tablet, Oral Only 10 mg PO Q4H PRN (Reason: Pain) insulin lispro 100 unit/mL Insulin Pen See Rx Instructions .ROUTE .COMPLEX Qty: 15 0RF Rx Instructions: Inject subcut, 3 times daily, after meals, based on insulin sliding scale provided insulin glargine [Lantus Solostar U-100 Insulin] 100 unit/mL (3 mL) insulin pen 40 unit SUBCUT DAILY 30 Days Qty: 15 0RF ondansetron HCl 8 mg tablet 8 mg PO Q8H PRN (Reason: Nausea And Vomiting) 7 Days Qty: 21 0RF promethazine 25 mg suppository 25 mg RI Q6H PRN (Reason: nausea and vomiting) Qty: 12 0RF ondansetron 8 mg tablet,disintegrating 8 mg PO Q6H Qty: 14 0RF Rx Instructions: Take 1/2-1 tab every 6 hours as needed for nausea and vomiting Discharge Orders: Discharge ED (Routine); Ordered 04/22/25 Ordered By: Melany Rodriguez Referrals: nE Dowell DO [Primary Care Provider] Discharge Diet: Advance as tolerated Discharge Activity: Increase activity as tolerated Patient Instructions: Acute Nausea and Vomiting (ED), Cyclic Vomiting Syndrome (ED), Opioid Safety, Pain Management, Patient Portal & [place] Instructions Activity Restrictions/Additional Instructions: Thank you for choosing [facility] for your healthcare needs today. You have been screened and evaluated and felt safe for discharge. Health conditions do change or evolve sometimes and as such it is important that you follow up with your Primary Doctor to be re checked, 3-5 days is a general good time frame for follow up. You are always welcome to return to the ED for re assessment if your symptoms are worsening or you have new concerns Print Language: Mozambican Coding Level of Care Code ED Health Benefits Specialist for Katarzyna Vidal
[2025-04-22] MEDS: ondansetron 2 mg/ML SDV 2 mL 4 MG IVP (12:07)
[2025-04-22] MEDS: HYDROmorphone 0.5 MG/0.5 ML INJ 1 MG IVP ×2 (12:08→13:52)
[2025-04-22 12:11] VITALS: BP 178/74; PULSE 68; RESP 22; O2SAT 98
[2025-04-22 12:14] LABS: Lactic Sepsis W/Reflex 1.5 mmol/L (0.5-2.2)
--- NOTE | 2025-04-22 12:14 | PC.NURSE ---
asked pt for urine sample, pt states she will try later.
[2025-04-22 12:28] LABS: Procalcitonin 0.03 ng/mL (0-0.5)
[2025-04-22 13:00] VITALS: BP 161/67; PULSE 69; O2SAT 97
[2025-04-22 13:19] LABS: Glucose Urine UA 2+ (Normal); Nitrate Urine Negative (Negative); Specific Gravity, Urine 1.012 (1.005-1.030)
[2025-04-22 13:22] LABS: Add Urine Microscopic? YES
[2025-04-22 13:30] VITALS: BP 182/66; PULSE 67; O2SAT 96
--- NOTE | 2025-04-22 13:34 | CT_ITS ---
WS: [id number] CT ABDOMEN PELVIS TECHNIQUE: Contrast-enhanced CT of the abdomen and pelvis with coronal and sagittal reformatted images. CLINICAL INFORMATION: vomiting COMPARISON: CT 09/24/2024 DLP: 1283.[address] scans at [facility] use at least one of these dose optimization techniques: automated exposure control; mA and/or kV adjustment per patient size (includes targeted exams where dose is matched to clinical indication); or iterative reconstruction. FINDINGS: Evidence of prior liver transplant with surgical clips along the IVC and hepatic vein confluence. Slight atelectasis in the lung bases. Normal portal vein and splenic vein. Normal spleen. Normal GE junction. Gastric mucosal and duodenal enhancement compatible with gastroduodenitis. Fatty atrophy of the pancreas. Adrenal glands are normal. Normal renal parenchymal enhancement. No hydronephrosis. Tubal ligation clips. Normal caliber abdominal aorta. Celiac and SMA are patent. Normal portal vein and splenic vein. Tiny fat-containing umbilical hernia. No free fluid in the abdomen or pelvis. No perihepatic or perisplenic ascites. No evidence of small or large bowel obstruction. Evidence of prior appendectomy. Disc osteophyte complexes L4-L5 and L5-S1 with severe L4-5 and moderate to severe L5-S1 stenosis. This be followed up with lumbar spine MRI. CT/CT abdomen pelvis w con* [id number] IMPRESSION: 1. Evidence of prior liver transplant. 2. Slight atelectasis in the lung bases. 3. Evidence of gastritis and duodenitis with tiny esophageal hiatal hernia. 4. Tubal ligation clips. Prior appendectomy. 5. No evidence of small or large bowel obstruction. 6. Moderate to severe central canal stenosis L4-L5 and L5-S1 with disc osteoph yte complexes. This can be followed up with lumbar spine MRI.
[2025-04-22] MEDS: ondansetron 2 mg/ML SDV 2 mL 8 MG IVP (13:49)
[2025-04-22] MEDS: diphenhydrAMINE 50 mg/mL SDV 1mL IVP (13:51)
[2025-04-22 14:00] VITALS: BP 180/75; PULSE 80; RESP 19; O2SAT 93
[2025-04-22] MEDS: iohexol 350 mg/mL 500 mL Btl (per mL) IV (14:37)
[2025-04-22 15:43] VITALS: BP 171/76; PULSE 76; O2SAT 93
== END 2025-04-22 15:44 | disposition home or self-care (01) ==
PROVIDERS: Physician Assistant; Emergency Provider Emergency Medicine; PCP Family Medicine
DX: R11.2 Nausea with vomiting, unspecified (principal); E86.0 Dehydration; I10 Essential (primary) hypertension; E66.01 Morbid (severe) obesity due to excess calories; Z68.35 Body mass index [BMI] 35.0-35.9, adult; Z79.82 Long term (current) use of aspirin; Z79.4 Long term (current) use of insulin; Z94.4 Liver transplant status; Z79.899 Other long term (current) drug therapy
CPT/HCPCS: 36415; 74177; 80053; 81001; 83605; 83690; 84145; 84703; 85025; 86140; 87040; 96361; 96374; 96375; 96376; 99285; J0780; J1171; J1200; J2405; J7030

== ENCOUNTER 2025-08-07 11:28 | Emergency (ER) | payer MEDICAID, SELFPAY ==
--- NOTE | 2025-08-07 11:31 | XR_ITS ---
WS: [id number] XR chest 1V portable [id number] REASON FOR EXAM: sob FINDINGS: Normal thoracic aorta. The heart appears mildly enlarged. Mild prominence of the central pulmonary veins. No acute pulmonary parenchymal or pleural abnormality. Bony thorax intact without significant focal abnormality. XR/XR chest 1V portable [id number] IMPRESSION: Cardiomegaly with with possible mild pulmonary venous hypertension. No acute chest abnormality.
[2025-08-07 11:32] VITALS: BP 183/87; PULSE 81; RESP 35; TEMP 36.7; O2SAT 99; BMI 34.8
[2025-08-07 12:17] VITALS: BP 194/91; O2SAT 100
--- NOTE | 2025-08-07 12:23 | CT_ITS ---
WS: [id number] CT ABDOMEN AND PELVIS NONCONTRAST HISTORY: abd pain, hx liver transplant TECHNIQUE: Imaging performed through the abdomen and pelvis. Coronal and sagittal reformats are submitted. All CT scans at [facility] use at least one of these dose optimization techniques: automated exposure control; mA and/or kV adjustment per patient size (includes targeted exams where dose is matched to clinical indication); or iterative reconstruction. DLP: 1182.73 mGy.cm COMPARISON: 04/22/2025 Lower thorax: Lung bases are clear. Visualized heart is normal. No hiatal hernia. Liver: Normal liver and attenuation. Patient is status post liver transplant. Gallbladder: Surgically removed. Pancreas: Diffuse pancreatic atrophy. Spleen: Normal. Adrenal glands: Normal. No mass. Right kidney: Normal size kidney with no mass or hydronephrosis. Left kidney: Normal size kidney with no mass or hydronephrosis. Aorta: Mild atherosclerosis abdominal aorta with no aneurysm. No free fluid, intraperitoneal air or significant lymphadenopathy. GI tract: No GI tract obstruction. No colitis. Appendix is not identified and may've been surgically removed. Abdominal wall: Negative. No hernia. Pelvis: No free fluid. Uterus is present with tubal ligation clips. No free fluid or adnexal mass. Normal urinary bladder. Advanced vascular calcifications are noted in the femoral and deep profundal arteries. Osseous structures: Unremarkable. CT/CT abdomen pelvis wo con [id number] IMPRESSION: 1. No acute abdominal or pelvic abnormalities are identified on this noncontra st exam. 2. Status post liver transplant. 3. Prior cholecystectomy. 4. Appendix is not identified and probably has been surgically removed. 5. No renal obstruction. 6. No ascites.
--- NOTE | 2025-08-07 12:24 | W.ED.NAVMDI ---
HPI - Nausea/Vomiting/Diarrhea General: Chief complaint: Nausea/Vomiting/Diarrhea Stated complaint: v/sob transplant pt Time Seen by Provider: 08/07/25 12:09 History of Present Illness: 44-year-old female presents emergency room with complaint of persistent nausea and vomiting for the last few days. Patient has a history of liver transplant due to liver carcinoma and this was done about a year ago. She has had fever sweats and chills no shortness of breath no dysuria urgency or frequency Associated nausea: Yes Associated symtoms: Reports nausea; Denies chest pain or dysuria Related Data Home Medications ?Medication ?Instructions ?Recorded ?Confirmed aspirin 81 mg tablet,delayed 81 mg PO BEDTIME 09/11/19 08/07/25 release acetaminophen 500 mg tablet 1,000 mg PO Q6H PRN Pain 03/23/21 08/07/25 (Tylenol Extra Strength) atorvastatin 20 mg tablet 20 mg PO BEDTIME 03/23/21 08/07/25 cetirizine 10 mg tablet 10 mg PO DAILY 03/23/21 08/07/25 furosemide 20 mg tablet 20 mg PO DAILY PRN Edema 03/23/21 08/07/25 Held on 09/29/24. Instructions: Resume on 10/08/24. omeprazole 20 mg capsule,delayed 40 mg PO BEDTIME 03/23/21 08/07/25 release polyethylene glycol 3350 17 17 g PO DAILY PRN Constipation 03/23/21 08/07/25 gram/dose oral powder albuterol sulfate 90 mcg/actuation 1 puff inhalation Q6H PRN 09/24/24 08/07/25 aerosol inhaler (Ventolin HFA) Shortness Of Breath Or Wheezing amitriptyline 10 mg tablet 10 mg PO QPM PRN Sleep 09/24/24 08/07/25 carvedilol 25 mg tablet 25 mg PO BID 09/24/24 08/07/25 fluticasone 250 mcg-salmeterol 50 1 ea inhalation BID 09/24/24 08/07/25 mcg/dose blistr powdr for inhalation (Advair Diskus) mycophenolate sodium 360 mg 360 mg PO BID 09/24/24 08/07/25 tablet,delayed release (Myfortic) sennosides 8.6 mg-docusate sodium 1 tab-cap PO TID PRN constipation 09/24/24 08/07/25 50 mg tablet tacrolimus 1 mg capsule, 3 mg PO Q12H 09/24/24 08/07/25 immediate-release (Prograf) Held on 09/29/24. Instructions: Resume on 10/01/24. hold until tuesday, recheck tacrolimus level, barness will call you tiotropium bromide 18 mcg capsule 1 cap inhalation QPM 09/24/24 08/07/25 with inhalation device (Spiriva with HandiHaler) buprenorphine 10 mcg/hour weekly See Rx Instructions .Route .COMPLEX 08/07/25 08/07/25 transdermal patch (Butrans) dicyclomine 10 mg capsule 10 mg PO QID 08/07/25 08/07/25 methocarbamol 500 mg tablet 1,000 mg PO TID 08/07/25 08/07/25 morphine 15 mg tablet,extended 30 mg PO Q12H 08/07/25 08/07/25 release ondansetron 4 mg disintegrating 4 mg PO Q8H PRN Nausea And Vomiting 08/07/25 08/07/25 tablet oxycodone 5 mg tablet 5 - 10 mg PO BID PRN Pain 08/07/25 08/07/25 Previous Rx's ?Medication ?Instructions ?Recorded blood sugar diagnostic (Blood #100 ea 03/18/20 Glucose Test strips) blood-glucose meter (Blood Glucose #1 ea 03/18/20 Monitoring kit) ferrous gluconate 324 mg (37.5 mg 324 mg PO EVERY OTHER DAY #15 tabs 05/02/21 iron) tablet pen needle, diabetic 31 gauge x ##100 02/12/2211/11 (TechLITE Pen Needle) insulin glargine 100 unit/mL (3 40 unit (0.4 mL) SUBCUT DAILY 30 09/29/24 mL) subcutaneous pen (Lantus days #15 mL Solostar U-100 Insulin) insulin lispro 100 unit/mL See Rx Instructions .Route 09/29/24 subcutaneous pen .COMPLEX #15 mL promethazine 25 mg [address] Q6H PRN nausea and 04/22/25 suppository vomiting #12 ea lorazepam 2 mg tablet (Ativan) 2 mg buccal Q6H PRN nausea and 08/07/25 vomiting #14 tabs olanzapine 10 mg disintegrating 10 mg PO Q8H PRN nausea and 08/07/25 tablet vomiting #14 tabs Allergies Allergy/AdvReac Type Severity Reaction Status Date / Time sulfamethoxazole (From Allergy Unknown Unknown Verified 04/22/25 10:28 Bactrim) trimethoprim (From Bactrim) Allergy Unknown Unknown Verified 04/22/25 10:28 lidocaine Allergy Unknown Verified 04/22/25 10:28 metformin AdvReac Mild diarrhea, Verified 04/22/25 10:28 vomiting Review of Systems Const: Denies: fever(s) or chills Card: Denies: chest pain Resp: Denies: dyspnea GI: Reports: abdominal pain and nausea; Denies: hematemesis, coffee ground emesis, hematochezia or melena : Denies: dysuria, urinary frequency or urinary urgency Musc: Denies: neck pain or back pain Skin/Breast: Denies: rash PFSH ED PFSH: Medical History Pseudomonas pneumonia COVID-19 Morbid obesity with BMI of 45.0-49.9, adult ARDS (adult respiratory distress syndrome) Hyperlipidemia Depression Seasonal allergies Small fiber neuropathy Benign atrial arrhythmia Chronic nausea Related to gastroparesis and diabetes. Essential (primary) hypertension GERD (gastroesophageal reflux disease) Asthma Chronic pain syndrome Fibromyalgia Spinal cord stimulator status PAIN PUMP Surgical History S/P appendectomy S/P tubal ligation S/P section Family History Other Diabetes Hypertension Social History Smoking and tobacco/nicotine status: never used tobacco/nicotine Alcohol intake: never Substance/Drug Use: never Do you think of yourself as: Straight/Heterosexual Current gender identity: Female Physical Exam Const: GENERAL APPEARANCE: cooperative ORIENTATION/CONSCIOUSNESS: Yes awake, Yes oriented to person, Yes oriented to place and Yes oriented to time HENMT: COMMON NORMALS: normocephalic, atraumatic and hearing grossly normal bilaterally HEAD & SCALP: normocephalic and atraumatic Resp: COMMON NORMALS: normal respiratory effort, No retractions, No use of accessory muscles and clear to auscultation bilaterally AUSCULTATION: clear to auscultation bilaterally Cardio: COMMON NORMALS: regular rate, regular rhythm and No murmurs present (Cardio) RATE: regular rate RHYTHM: regular rhythm GI: COMMON NORMALS: No hepatosplenomegaly present AUSCULTATION: Yes normoactive bowel sounds PALPATION: Yes Tenderness to palpation present (GI), No Guarding due to palpation present (GI) and Yes No hepatosplenomegaly present Extremity: COMMON NORMALS: normal to inspection, capillary refill normal, no clubbing, cyanosis or edema, no calf tenderness and no pedal edema Neuro: SENSORIUM/ORIENTATION: Yes oriented to person, Yes oriented to place and Yes oriented to time Skin: COMMON NORMALS: no rashes or lesions noted GENERAL SKIN EXAM: no rashes or lesions noted Course Vital Signs: Vital signs: Vital Signs Temperature 98.0 F 08/07/25 11:32 Pulse Rate 80 08/07/25 13:33 Respiratory Rate 35 H 08/07/25 11:32 Blood Pressure 182/81 08/07/25 13:33 Pulse Oximetry 98 08/07/25 13:33 Oxygen Delivery Me thod Nasal Cannula 08/07/25 13:33 Oxygen Flow Rate 2 08/07/25 13:33 MDM - Nausea/Vomiting/Diarrhea Medical Decision Making Medical decision making Social determinants: None I reviewed the patient's medical record. I reviewed the patient's current home meds. Alternate historians: at the bedside Differential diagnosis: Gastroenteritis, complication of liver transplant Lab Review: Labs reviewed in the chart white count 13 8 hemoglobin normal. Chemistry sodium 133 anion gap 20 carbon oxide 20 lactic acid 2.0 T. bili normal AST ALT alk phos normal. Imaging: CT of the abdomenNo acute abdominal findings. Appendix not identified. No renal obstruction no ascites no free fluid. Chest x-ray mild cardiomegaly no effusions no infiltrates no pulmonary edema Assessment of risk Level of risk: Moderate Hospitalization considerations: Consideration for hospitalization or transfer pending CT and laboratory findings given the patient's history of previous liver transplant Reexamination: Improved after Haldol and Ativan Assessment and plan: Laboratory test show mild elevation of white count but otherwise are fairly unremarkable. Patient has no urinary tract symptoms. Patient's main complaint is a persistent nausea and vomiting. Patient does admit to regular use of THC product suspect he is having cannabinoid hyperemesis syndrome she responded well to treatment for same. Will discharge home with olanzapine and Ativan to use as needed encouraged cessation or minimization of THC products. Patient agreeable to plan Lab Data 08/07/25 12:08/07/25 12:25 Radiology Impressions Chest X-Ray 08/07/25 11:31 IMPRESSION: Cardiomegaly with with possible mild pulmonary venous hypertension. No acute chest abnormality. Abdomen/Pelvis CT 08/07/25 12:23 IMPRESSION: 1. No acute abdominal or pelvic abnormalities are identified on this noncontrast exam. 2. Status post liver transplant. 3. Prior cholecystectomy. 4. Appendix is not identified and probably has been surgically removed. 5. No renal obstruction. 6. No ascites. Laboratory Results WBC 13.08 10^3/uL (3.29-11.43) H 08/07/25 12: RBC 5.47 10^6/uL (3.85-5.65) 08/07/25 12:25 Hgb 15.70 g/dL (11.27-16.99) 08/07/25 12:25 Hct 46.5 % (36-47) 08/07/25 12:25 MCV 85.0 fl (85-98) 08/07/25 12:25 MCH 28.7 pg (27-33) 08/07/25 12:25 MCHC 33.8 g/dL (30-55) 08/07/25 12: RDW 13.2 % (12.1-15.1) 08/07/25 12:25 Plt Count 266 10^3/cmm (157-399) 08/07/25 12:25 MPV 10.7 fL (7.4-10.4) H 08/07/25 12:25 Neut % (Auto) 76.0 % 08/07/25 12:25 Lymph % (Auto) 18.1 % 08/07/25 12:25 Mcduffie % (Auto) 4.8 % 08/07/25 12:25 Eos % (Auto) 0.3 % 08/07/25 12:25 Baso % (Auto) 0.3 % 08/07/25 12:25 Neut # (Auto) 9.93 10^3/uL (1.8-7.7) H 08/07/25 12:25 Lymph # (Auto) 2.4 10^3/uL (0.8-4.8) 08/07/25 12:25 Mcduffie # (Auto) 0.6 10^3/uL (0.2-0.9) 08/07/25 12:25 Eos # (Auto) 0.0 10^3/uL (0.0-0.8) 08/07/25 12:25 Baso # (Auto) 0.0 10^3/uL (0.0-0.1) 08/07/25 12:25 Nucleated RBC % (auto) 0 % 08/07/25 12: Nucleated RBCs # 0.0 /100WBC 08/07/25 12:25 Sodium 133 mmol/L (136-145) L 08/07/25 12:25 Potassium 4.2 mmol/L (3.5-5.1) 08/07/25 12:25 Chloride 97 mmol/L (98-107) L 08/07/25 12: Carbon Dioxide 20 mmol/L (22-29) L 08/07/25 12:25 Anion Gap 20.2 (5-19) H 08/07/25 12:25 BUN 10 mg/dL (6-20) 08/07/25 12:25 Creatinine 0.7 mg/dL (0.5-0.9) 08/07/25 12: GFR Calculation 90.9 mL/min (90-130) 08/07/25 12:25 Glucose 268 mg/dL (65-115) H 08/07/25 12:25 Calculated Osmolality 284 mOsm/kg (285-295) L 08/07/25 12:25 Lactic Acid 2.0 mmol/L (0.5-2.2) 08/07/25 12:25 Calcium 9.3 mg/dL (8.5-10.5) 08/07/25 12:25 Total Bilirubin 0.8 mg/dL (0.15-1.2) 08/07/25 12:25 AST 19 U/L (0-32) 08/07/25 12:25 ALT 26 U/L (0-33) 08/07/25 12:25 Alkaline Phosphatase 98 U/L (35-105) 08/07/25 12:25 NT-Pro-B Natriuret Pep 676 pg/mL (0-125) H 08/07/25 12:25 Total Protein 8.3 g/dL (6.6-8.7) 08/07/25 12:25 Albumin 4.3 g/dL (3.5-5.2) 08/07/25 12:25 Globulin 4.0 g/dL (1.3-4.6) 08/07/25 12:25 All radiology interpretation(s) finalized by discharge Discharge Plan Discharge Patient Disposition: Home Clinical Impression: Cannabinoid hyperemesis syndrome Condition: Stable Prescriptions: New olanzapine 10 mg tablet,disintegrating 10 mg PO Q8H PRN (Reason: nausea and vomiting) Qty: 14 0RF lorazepam [Ativan] 2 mg tablet 2 mg buccal Q6H PRN (Reason: nausea and vomiting) Qty: 14 0RF No Action aspirin 81 mg tablet,delayed release (DR/EC) 81 mg PO BEDTIME (DME) blood-glucose meter [Blood Glucose Monitoring] Kit See Rx Instructions .ROUTE .MEDSUPPLY Qty: 1 0RF Rx Instructions: As directed (DME) Blood Glucose Test Strip See Rx Instructions .ROUTE .MEDSUPPLY Qty: 100 1RF Rx Instructions: As directed (DME) pen needle, diabetic [TechLITE Pen Needle] 31 gauge x 3/16 needle See Rx Instructions .ROUTE .COMPLEX Qty: 100 11RF Dose Instruction: USE WITH INSULIN 5 TIMES DAILY Rx Instructions: USE WITH INSULIN 5 TIMES DAILY atorvastatin 20 mg tablet 20 mg PO BEDTIME cetirizine 10 mg tablet 10 mg PO DAILY acetaminophen [Tylenol Extra Strength] 500 mg Tablet 1,000 mg PO Q6H PRN (Reason: Pain) furosemide 20 mg tablet 20 mg PO DAILY PRN (Reason: Edema) polyethylene glycol 3350 17 gram/dose powder 17 g PO DAILY PRN (Reason: Constipation) omeprazole 20 mg capsule,delayed release(DR/EC) 40 mg PO BEDTIME ferrous gluconate 324 mg (37.5 mg iron) Tablet 324 mg PO EVERY OTHER DAY Qty: 15 0RF carvedilol 25 mg Tablet 25 mg PO BID Rx Instructions: must administer with a meal/food tacrolimus [Prograf] 1 mg Capsule 3 mg PO Q12H mycophenolate sodium [Myfortic] 360 mg Tablet,Delayed Release (Dr/Ec) 360 mg PO BID fluticasone propion-salmeterol [Advair Diskus] 250-50 mcg/dose blister with device 1 ea INHALATION BID sennosides-docusate sodium 8.6-50 mg Tablet 1 tab-cap PO TID PRN (Reason: constipation ) amitriptyline 10 mg Tablet 10 mg PO QPM PRN (Reason: Sleep) albuterol sulfate [Ventolin HFA] 90 mcg/actuation HFA aerosol inhaler 1 puff INHALATION Q6H PRN (Reason: Shortness Of Breath Or Wheezing) tiotropium bromide [Spiriva with HandiHaler] 18 mcg capsule, w/inhalation device 1 cap INHALATION QPM insulin lispro 100 unit/mL Insulin Pen See Rx Instructions .ROUTE .COMPLEX Qty: 15 0RF Rx Instructions: Inject subcut, 3 times daily, after meals, based on insulin sliding scale provided insulin glargine [Lantus Solostar U-100 Insulin] 100 unit/mL (3 mL) insulin pen 40 unit SUBCUT DAILY 30 Days Qty: 15 0RF promethazine 25 mg suppository [address] Q6H PRN (Reason: nausea and vomiting) Qty: 12 0RF ondansetron 4 mg tablet,disintegrating 4 mg PO Q8H PRN (Reason: Nausea And Vomiting) oxycodone 5 mg tablet 5 - 10 mg PO BID MDD 4 tablets PRN (Reason: Pain) methocarbamol 500 mg tablet 1,000 mg PO TID morphine 15 mg tablet extended release 30 mg PO Q12H dicyclomine 10 mg capsule 10 mg PO QID buprenorphine [Butrans] 10 mcg/hour patch weekly See Rx Instructions .ROUTE .COMPLEX Rx Instructions: APPLY ONE PATCH TO SKIN EVERY SEVEN DAYS DIRECTED BY DOCTOR. Discharge Orders: Discharge ED (Routine); Ordered 08/07/25 Ordered By: Sheng Reynolds Referrals: En Dowell DO [Primary Care Provider] Discharge Diet: Clear Liquid Discharge Activity: Increase activity as tolerated Patient Instructions: Opioid Safety, Pain Management, Patient Portal & [place] Instructions Activity Restrictions/Additional Instructions: Thank you for choosing [facility] for your healthcare needs today. It is very important that you follow up as instructed or that you return to the Emergency Department should you have concerns or if your condition changes or worsens in any way. Emergency department visits are focused on emergent conditions, in some cases you may require further evaluation on an outpatient basis. You were seen in the emergency room with persistent nausea and vomiting. CT of your abdomen was normal. Your other labs did not show significant abnormalities. Based on the lab work your presenting history and exam suspect that your symptoms are due to THC use this is called hyperemesis cannabinoid syndrome. One of the side effects of regular use of THC products can be persistent abdominal pain with severe nausea and vomiting. He did improve with medications given we gave you sublingual olanzapine and buccal Ativan to use as needed for relief of symptoms at home. Decreasing the use of THC products will decrease the degree of symptoms, however this may take some time. Avoid use of edible products and vape pens. (Please note that included in your discharge packet is information concerning opioid safety and pain management. This information is given to all patients were discharged from the ER regardless of their discharge diagnosis or the medicines they usually take or are prescribed.) Print Language: Tristanian Coding Level of Care Code ED Director [employer] for Katarzyna Vidal
[2025-08-07 12:32] LABS: Hematocrit 46.5 % (36-47); Hemoglobin 15.70 g/dL (11.27-16.99); Mean Corpuscular HGB Conc 33.8 g/dL (30-55); Mean Corpuscular Hemoglobin 28.7 pg (27-33); Mean Corpuscular Volume 85.0 fl (85-98); Nucleated Red Blood Cells % 0 %; Platelet Count 266 10^3/cmm (157-399); Red Blood Count 5.47 10^6/uL (3.85-5.65); White Blood Count 13.08 10^3/uL (3.29-11.43)
[2025-08-07] MEDS: haloperidol inj 5 mg/mL INJ 1 mL 2.5 MG IVP (12:34)
[2025-08-07] MEDS: LORazepam 2 mg/mL INJ 1 mL IVP (12:34)
[2025-08-07 12:50] VITALS: BP 214/108; O2SAT 100
[2025-08-07 12:54] LABS: Lactic Sepsis W/Reflex 2.0 mmol/L (0.5-2.2)
[2025-08-07 13:06] LABS: Alanine Aminotransferase 26 U/L (0-33); Albumin Level 4.3 g/dL (3.5-5.2); Alkaline Phosphatase 98 U/L (35-105); Aspartate Amino Transferase 19 U/L (0-32); Blood Urea Nitrogen 10 mg/dL (6-20); Calcium 9.3 mg/dL (8.5-10.5); Carbon Dioxide 20 mmol/L (22-29); Chloride 97 mmol/L (98-107); Globulin 4.0 g/dL (1.3-4.6); Glucose 268 mg/dL (65-115); NT Pro B Type Natriuretic Pept 676 pg/mL (0-125); Osmolality Calculated 284 mOsm/kg (285-295); Sodium 133 mmol/L (136-145); Total Protein 8.3 g/dL (6.6-8.7)
[2025-08-07 13:10] LABS: Anion Gap 20.2 (5-19); Potassium 4.2 mmol/L (3.5-5.1)
--- NOTE | 2025-08-07 13:31 | PC.NURSE ---
Assumed Pt. care
[2025-08-07 13:33] VITALS: BP 182/81; PULSE 80; O2SAT 98
== END 2025-08-07 15:31 | disposition home or self-care (01) ==
PROVIDERS: Emergency Medicine; Emergency Provider Family Medicine; PCP Family Medicine
DX: R11.16 Cannabis hyperemesis syndrome (principal); Z79.82 Long term (current) use of aspirin; Z79.4 Long term (current) use of insulin; E78.5 Hyperlipidemia, unspecified; I10 Essential (primary) hypertension; Z94.4 Liver transplant status; Z85.05 Personal history of malignant neoplasm of liver
CPT/HCPCS: 36415; 71045; 74176; 80053; 83605; 83880; 85025; 87040; 96374; 96375; 99285; J1630; J2060